=== PATIENT | female | born 1945 | race Caucasian/White ===

== ENCOUNTER → 2017-03-18 | Outpatient (CLI) | payer BC, OTHER ==
[~2017-03-18] MED LIST: ADVIN50050 INH; AMOX500T3 PO; ASPI-435 PO; ATOR80TA PO; AZEL0.055 INTNAS; BUPRTAB PO; CHOL1000 PO; CLOTLOT2 TOP; CTP/1 PO; CYAN100020 PO; CYCL10TA6 PO; DEXL60CA4 PO; DILT1TAB PO; DOCU-94 PO; ESCI1TAB10 PO; GLC/500 PO; HOMATROPINE PO; HYDROCODONE PO; HYG/25 PO; INSDGI SC; INSU100I2 SC; IPRA0.037 NAE; LACT10SO30 PO; LAMO1TAB21 PO; LORA-741 PO; LOSA1TAB38 PO; METO100T44 PO; METO1TAB54 PO; MOME50SP5; MONT1TAB3 PO; MULT-506 PO; ONDA4TAB46 PO; OXYC-57 PO; PAROXETINE PO; PRVHFAIN INH; PSEU60TA80 PO; RANI300T2 PO; RXC5 PO; SENN-61 PO; SNQ/25 PO; SPIR1TAB72 PO; VALA500T60 PO; [UNRECOGNIZED DRUG - CODE] SQ
--- NOTE | 2017-03-18 08:14 | DIAGNOSTIC IMAGING REPORT ---
ABDOMINAL ULTRASOUND, lower QUADRANT HISTORY: Postoperative pain R10.9 Abdominal [id number]. COMPARISON: None. FINDINGS: No abnormality identified deep to the patient's midline lower abdominal scar. IMPRESSION: No evidence for hernia or subcutaneous abnormality deep to the patient's postoperative scar Electronically signed by: Francisco Fonseca M.D. 03/18/2017 8:12 AM Dictated Date/Time: 03/18/2017 8:09 AM
== END | disposition home or self-care (01) ==
LOC: C.ULTR 07:42
PROVIDERS: ATTEND Physician Assistant Medical
DX: R10.9 Unspecified abdominal pain (principal)

== ENCOUNTER → 2017-04-01 | Outpatient (CLI) | payer BC, OTHER ==
--- NOTE | 2017-04-01 15:22 | DIAGNOSTIC IMAGING REPORT ---
ABDOMEN AND PELVIS CT WITH IV AND ORAL CONTRAST CT DOSE: 666.37 mGy.cm HISTORY: Hernia R10.9 Abdominal pain r/o incisional hernia--ultrasound normal E X TECHNIQUE: Multiaxial CT images of the abdomen and pelvis were performed following the use of intravenous and oral contrast. COMPARISON STUDY: 04/06/2014. Ultrasound same date. FINDINGS: Lung bases are clear. Moderate fatty infiltration of liver. Interval cholecystectomy. Pancreas is uniform. Extrarenal pelvis right kidney. No evidence for renal hydronephrosis. Several small sub-5 mm renal cortical cysts. Midline incision lower aspect anterior abdominal wall. Anterior abdominal wall is intact. No evidence for hernia. Bowel pattern is nonobstructive. Bladder is midline. IMPRESSION: 1. Fatty infiltration of liver. 2. No evidence for hernia. 3. The abdominal wall appears to be intact. Electronically signed by: Francisco Fonseca M.D. 04/01/2017 3:20 PM Dictated Date/Time: 04/01/2017 3:14 PM
== END | disposition home or self-care (01) ==
LOC: C.CTS 13:36
PROVIDERS: ATTEND Physician Assistant Medical
DX: R10.9 Unspecified abdominal pain (principal); K76.0 Fatty (change of) liver, not elsewhere classified

== ENCOUNTER → 2017-04-07 | Outpatient (CLI) | payer BC ==
[~2017-04-07] MED LIST changes: -HOMATROPINE PO; -HYDROCODONE PO; -INSDGI SC; -INSU100I2 SC; -LOSA1TAB38 PO; -PAROXETINE PO
[2017-04-07 15:06] LABS: ESTIMATED AVERAGE GLUCOSE 246 mg/dl; HA1C FLAG Normal (Normal)
== END | disposition home or self-care (01) ==
LOC: C.LAB1850 13:22
PROVIDERS: ATTEND Physician Assistant
DX: E11.49 Type 2 diabetes mellitus with other diabetic neurological complication (principal)

== ENCOUNTER → 2017-05-19 | Outpatient (CLI) | payer BC ==
[2017-05-22 15:56] LABS: ILGF1 Z SCORE FEMALE 1.8 SD (-2.0 - +2.0); INSULIN LIKE GROWTH FACTOR-I 233 ng/mL (34-245); ISLET CELL AB NEGATIVE (NEGATIVE)
== END ==
LOC: C.LAB 08:01
PROVIDERS: ATTEND Orthopaedic Surgery Orthopaedic Surgery of the Spine
DX: M48.06 Spinal stenosis, lumbar region (principal)

== ENCOUNTER 2017-06-05 11:15 | Inpatient (IN) | payer BC, OTHER ==
[2017-04-01 14:09] VITALS: BMI 31.0
--- NOTE | 2017-04-01 14:20 | PAT Medication Instructions ---
Service Date April 01, 2017. Current Home Medication List Albuterol (Ventolin Hfa), 2 PUFFS INH q4-6h PRN for Shortness of Breath Amoxicillin (Amoxil), 500 MG PO DAILY Aspirin (Aspirin 81), 81 MG PO QAM Atorvastatin Calcium (Lipitor), 80 MG PO HS Azelastine Hcl (Ophth) (Azelastine Hcl), 2 SPRAYS INTNAS BID PRN for congestiion Bupropion Hcl (Wellbutrin Xl), 1 TAB PO DAILY PRN for Anxiety Chlorthalidone (Hygroton), 25 MG PO QAM Cholecalciferol (Vitamin D3), 1 TAB PO QAM Clonidine Hcl (Catapres), 0.1 MG PO BID Clotrimazole W/ Betamethasone (Clotrimazole/Betamethason), 1 DOSE TOP Q2D Cyanocobalamin (Vitamin B12), 1 TAB PO QAM Cyclobenzaprine Hcl (Flexeril), 10 MG PO TID PRN for Pain Dexlansoprazole (Dexilant), 60 MG PO QAM Diltiazem HCl Coated Beads (Diltiazem HCl ER), 420 MG PO QAM Docusate Sodium (Colace), 100 MG PO HS PRN for PRN Doxepin (Sinequan), 25 MG PO HS PRN for PRN Escitalopram Oxalate (Lexapro), 20 MG PO QAM Fluticasone Prop/Salmeterol (Advair Diskus 500-50 Mcg/Dose), 1 PUFF INH BID Hctz/Spironolactone (Spironolactone/Hydrochlor 25-25 mg), 1 TAB PO QAM Insulin Human Regular (Humulin R), 50 UNITS SQ BREAKFAST AND DINNER Ipratropium [place] (Nasal) (Atrovent Nasal [place]), 2 SPRY SHANA TID PRN for PRN Lactulose (Encephalopathy) (Lactulose), 15 ML PO DAILY PRN for CONSTIPATION Lamotrigine (Lamotrigine), 50 MG PO BID Lorazepam (Ativan), 0.5 MG PO Q6H PRN for Anxiety/Agitation Losartan Potassium (Cozaar), 100 MG PO QAM Metformin Hcl (Glucophage), 500 MG PO BID Metoclopramide Hcl (Reglan), 5 MG PO BID Metoprolol Succ (Toprol Xl) (Toprol-Xl ), 100 MG PO QAM Metoprolol Succ (Toprol Xl) (Toprol-Xl ), 50 MG PO HS Mometasone Furoate (Nasonex), 1 SPRAY NA PRN Montelukast Sodium (Singulair), 10 MG PO QAM Multivitamin (Multivitamin), 1 TAB PO QAM Ondansetron Hcl (Zofran), 4 MG PO Q8H PRN for Nausea Oxycodone/Acetaminophen 5MG/325MG (Percocet 5MG/325MG), 1-2 TABLETS PO Q4H PRN for Pain Pseudoephedrine-Guaifenesin (Mucinex D), 1 TAB PO BID PRN for CONGESTION Ranitidine Hcl (Zantac), 300 MG PO HS Senna (Senokot), 1 TAB PO BID PRN for RN Valacyclovir (Valtrex), 500 MG PO DAILY Medication Instructions For Your Scheduled Surgery - Hold the following medications 48 hours prior to surgery: Metformin Hcl (Glucophage), 500 MG PO BID - Hold the following medications 24 hours prior to surgery: Clotrimazole W/ Betamethasone (Clotrimazole/Betamethason), 1 DOSE TOP Q2D - Hold the following medications the morning of surgery: Chlorthalidone (Hygroton), 25 MG PO QAM Cholecalciferol (Vitamin D3), 1 TAB PO QAM Cyanocobalamin (Vitamin B12), 1 TAB PO QAM Insulin Human Regular (Humulin R), 50 UNITS SQ BREAKFAST AND DINNER Hctz/Spironolactone (Spironolactone/Hydrochlor 25-25 mg), 1 TAB PO QAM Losartan Potassium (Cozaar), 100 MG PO QAM Cyclobenzaprine Hcl (Flexeril), 10 MG PO TID PRN for Pain Multivitamin (Multivitamin), 1 TAB PO QAM Pseudoephedrine-Guaifenesin (Mucinex D), 1 TAB PO BID PRN for CONGESTION Senna (Senokot), 1 TAB PO BID PRN Metoclopramide Hcl (Reglan), 5 MG PO BID Lactulose (Lactulose), 15 ML PO DAILY PRN for CONSTIPATION - Take the following medications the morning of surgery with a sip of water OTHERWISE NOTHING TO EAT OR DRINK AFTER MIDNIGHT: Albuterol (Ventolin Hfa), 2 PUFFS INH q4-6h PRN for Shortness of Breath (use if needed; BRING TO HOSPITAL) Aspirin (Aspirin 81), 81 MG PO QAM Azelastine Hcl (Ophth) (Azelastine Hcl), 2 SPRAYS INTNAS BID PRN for congestiion Bupropion Hcl (Wellbutrin Xl), 1 TAB PO DAILY PRN for Anxiety Clonidine Hcl (Catapres), 0.1 MG PO BID Dexlansoprazole (Dexilant), 60 MG PO QAM Diltiazem HCl Coated Beads (Diltiazem HCl ER), 420 MG PO QAM Escitalopram Oxalate (Lexapro), 20 MG PO QAM Fluticasone Prop/Salmeterol (Advair Diskus 500-50 Mcg/Dose), 1 PUFF INH BID Lamotrigine (Lamotrigine), 50 MG PO BID Lorazepam (Ativan), 0.5 MG PO Q6H PRN for Anxiety/Agitation Mometasone Furoate (Nasonex), 1 SPRAY NA PRN Metoprolol Succ (Toprol Xl) (Toprol-Xl ), 100 MG PO QAM Montelukast Sodium (Singulair), 10 MG PO QAM Valacyclovir (Valtrex), 500 MG PO DAILY Ondansetron Hcl (Zofran), 4 MG PO Q8H PRN for Nausea Oxycodone/Acetaminophen 5MG/325MG (Percocet 5MG/325MG), 1-2 TABLETS PO Q4H PRN for Pain (may take if needed up to 4 hours prior to surgery) Ipratropium [place] (Nasal) (Atrovent Nasal [place]), 2 SPRY SHANA TID PRN for PRN - Take the following medications as scheduled the night before surgery: Albuterol (Ventolin Hfa), 2 PUFFS INH q4-6h PRN for Shortness of Breath Metoprolol Succ (Toprol Xl) (Toprol-Xl ), 50 MG PO HS Ranitidine Hcl (Zantac), 300 MG PO HS Atorvastatin Calcium (Lipitor), 80 MG PO HS Azelastine Hcl (Ophth) (Azelastine Hcl), 2 SPRAYS INTNAS BID PRN for congestiion Clonidine Hcl (Catapres), 0.1 MG PO BID Docusate Sodium (Colace), 100 MG PO HS PRN for PRN Doxepin (Sinequan), 25 MG PO HS PRN for PRN Insulin Human Regular (Humulin R), 50 UNITS SQ BREAKFAST AND DINNER Fluticasone Prop/Salmeterol (Advair Diskus 500-50 Mcg/Dose), 1 PUFF INH BID Lamotrigine (Lamotrigine), 50 MG PO BID Lorazepam (Ativan), 0.5 MG PO Q6H PRN for Anxiety/Agitation Mometasone Furoate (Nasonex), 1 SPRAY NA PRN Cyclobenzaprine Hcl (Flexeril), 10 MG PO TID PRN for Pain Pseudoephedrine-Guaifenesin (Mucinex D), 1 TAB PO BID PRN for CONGESTION Senna (Senokot), 1 TAB PO BID PRN Metoclopramide Hcl (Reglan), 5 MG PO BID Ondansetron Hcl (Zofran), 4 MG PO Q8H PRN for Nausea Oxycodone/Acetaminophen 5MG/325MG (Percocet 5MG/325MG), 1-2 TABLETS PO Q4H PRN for Pain Ipratropium [place] (Nasal) (Atrovent Nasal [place]), 2 SPRY SHANA TID PRN for PRN If you have any questions please call us at [phone] or [phone] or [phone]
[2017-04-02 12:07] LABS: BASO % 0.5 %; BASO ABS # 0.04 K/uL (0-0.2); COMPLETE YES; EOS % 1.1 %; HEMATOCRIT 42.5 % (37-47); IG% 0.5 %; LYMPH % 29.7 %; LYMPH ABS # 2.35 K/uL (1.2-3.4); MEAN CELL VOLUME 89.7 fL (80-100); MEAN CORPUSCULAR HEMOGLOBIN 30.6 pg (25-34); MEAN CORPUSCULAR HGB CONC 34.1 g/dl (32-36); MEAN PLATELET VOLUME 10.8 fL (7.4-10.4); MONO % 8.8 %; NEUT % 59.4 %; PLATELET COUNT 317 K/uL (130-400); RED BLOOD COUNT 4.74 M/uL (4.2-5.4); URINE APPEARANCE CLEAR (CLEAR); URINE BILIRUBIN NEG (NEG); URINE COLOR YELLOW; URINE NITRITE NEG (NEG); URINE PH 5.5 (4.5-7.5); URINE SPECIFIC GRAVITY 1.028 (1.000-1.030); UROBILINOGEN NEG (NEG); WHITE BLOOD COUNT 7.92 K/uL (4.8-10.8)
[2017-04-02 12:12] LABS: MANUAL MICROSCOPIC REQUIRED? NO; REVIEW REQ? NO
[2017-04-02 13:31] LABS: BUN/CREATININE RATIO 13.4 (10-20); CALCIUM 9.6 mg/dl (8.5-10.1)
[2017-04-02 13:55] LABS: BETA-HYDROXYBUTYRATE 1.46 mg/dL (0.2-2.81)
[2017-05-19 09:43] LABS: BASO % 0.5 %; BASO ABS # 0.04 K/uL (0-0.2); COMPLETE YES; EOS % 2.4 %; HEMATOCRIT 42.7 % (37-47); IG% 0.8 %; LYMPH % 29.7 %; LYMPH ABS # 2.53 K/uL (1.2-3.4); MEAN CELL VOLUME 90.9 fL (80-100); MEAN PLATELET VOLUME 10.5 fL (7.4-10.4); MONO % 7.6 %; PLATELET COUNT 312 K/uL (130-400); WHITE BLOOD COUNT 8.51 K/uL (4.8-10.8)
[2017-05-19 09:49] LABS: URINE APPEARANCE CLEAR (CLEAR); URINE BILIRUBIN NEG (NEG); URINE COLOR YELLOW; URINE NITRITE NEG (NEG); URINE SPECIFIC GRAVITY 1.023 (1.000-1.030); UROBILINOGEN NEG (NEG)
[2017-05-19 10:07] LABS: MANUAL MICROSCOPIC REQUIRED? NO; REVIEW REQ? NO
[2017-05-19 10:18] LABS: BUN/CREATININE RATIO 19.2 (10-20); CALCIUM 9.3 mg/dl (8.5-10.1); CREATININE 0.98 mg/dl (0.60-1.20)
[2017-05-22 15:10] VITALS: BMI 31.0
[2017-06-05] VITALS (7 sets, daily range): BP systolic 112–138; BP diastolic 69–85; PULSE 77–92; TEMP 36.5–37.7; O2SAT 93–97; BMI 31.0
[~2017-06-05] VITALS: Ht 160 cm; Wt 81.8 kg
[~2017-06-05 11:15] MED LIST changes: +CEFAZOLIN 2000 MG/60 ML D5W IV SCH; +LACTATED RINGER'S 1000ML 1,000 ML IV SCH; -METO100T44 PO; +METO1TAB69 PO; -RXC5 PO
[2017-06-05] MEDS ORDERED: ATROPINE SULFATE 0.1 MG/ML 5ML SYR IV PRN (13:30)
[2017-06-05] MEDS ORDERED: FENTANYL CITRATE INJ 50 MCG/1 ML 2 ML VIAL IV PRN (13:30)
[2017-06-05] MEDS ORDERED: ONDANSETRON INJ 2 MG/ML 2 ML VIAL IV PRN ×2 (13:30→16:00)
[2017-06-05] MEDS ORDERED: EpHEDrine SULFATE INJ 50 MG/ML AMP IV PRN (13:30)
[2017-06-05] MEDS ORDERED: MoRPHine SULFATE 10 MG/ML CARP/VIAL IV PRN (13:30)
--- NOTE | 2017-06-05 13:42 | History & Physical Bridge Note ---
H&P Re-Evaluation Bridge Note: I have examined the patient, reviewed the History & Physical and in the interval since the performance of the History & Physical I have noted the following changes of clinical significance: No changes noted
--- NOTE | 2017-06-05 13:43 | History and Physical ---
History & Physical Date Jun 05, 2017. 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 (8) Diab Ramonita Wo Compl, Type Ii Or Unspec Type, Not Uncntrld (9) Diabetes mellitus (10) Hyperlipidemia (11) neuropathy (12) Pancreat Cyst/Pseudocyst Surgical Problems: (1) back surgery x3 (2) neck surgery x3 (3) Tubal Ligation Status Additional History Hepatic Disease: No Endocrine Disorder: No Kidney Disease: No Hypertension: No Heart Disease: No Bleeding Tendencies: No Infectious Diseases: No Allergies Coded Allergies: Levofloxacin (Verified Allergy, Unknown, ITCHY HIVES, 06/05/17) Ofloxacin (Verified Allergy, Unknown, RASH, 06/05/17) Pioglitazone (Verified Allergy, Unknown, ITCHING, 06/05/17) Sulfa Drugs (Verified Allergy, Unknown, ITCHY (PER PT, HAS TOLERATED CELEBREX), 06/05/17) Home Medications Scheduled Amoxicillin (Amoxil), 500 MG PO DAILY Aspirin (Aspirin 81), 81 MG PO QAM Atorvastatin Calcium (Lipitor), 80 MG PO HS Chlorthalidone (Hygroton), 25 MG PO QAM Cholecalciferol (Vitamin D3), 1 TAB PO QAM Clonidine Hcl (Catapres), 0.1 MG PO BID Cyanocobalamin (Vitamin B12), 1 TAB PO QAM Dexlansoprazole (Dexilant), 60 MG PO QAM Diltiazem HCl Coated Beads (Diltiazem HCl ER), 420 MG PO QAM Escitalopram Oxalate (Lexapro), 20 MG PO QAM Fluticasone Prop/Salmeterol (Advair Diskus 500-50 Mcg/Dose), 1 PUFF INH BID Hctz/Spironolactone (Spironolactone/Hydrochlor 25-25 mg), 1 TAB PO QAM Insulin Human Regular (Humulin R), 75 UNITS SQ QAM Lamotrigine (Lamotrigine), 50 MG PO BID Metformin Hcl (Glucophage), 1 TAB PO QID Metoclopramide Hcl (Reglan), 5 MG PO BID Metoprolol Succ (Toprol Xl) (Toprol-Xl ), 100 MG PO QAM Metoprolol Succ (Toprol Xl) (Toprol-Xl ), 50 MG PO HS Mometasone Furoate (Nasonex), 1 SPRAY NA PRN Montelukast Sodium (Singulair), 10 MG PO QAM Multivitamin (Multivitamin), 1 TAB PO QAM Ranitidine Hcl (Zantac), 300 MG PO HS Valacyclovir (Valtrex), 500 MG PO QAM Scheduled PRN Albuterol (Ventolin Hfa), 2 PUFFS INH q4-6h PRN for Shortness of Breath Azelastine Hcl (Ophth) (Azelastine Hcl), 2 SPRAYS INTNAS BID PRN for congestiion Bupropion Hcl (Wellbutrin Xl), 1 TAB PO DAILY PRN for Anxiety Clotrimazole W/ Betamethasone (Clotrimazole/Betamethason), 1 DOSE TOP Q2D PRN for SKIN IRRITATION Cyclobenzaprine Hcl (Flexeril), 10 MG PO TID PRN for Pain Docusate Sodium (Colace), 100 MG PO HS PRN for PRN Doxepin (Sinequan), 25 MG PO HS PRN for PRN Ipratropium [place] (Nasal) (Atrovent Nasal [place]), 2 SPRY SHANA TID PRN for PRN Lactulose (Encephalopathy) (Lactulose), 15 ML PO DAILY PRN for CONSTIPATION Lorazepam (Ativan), 0.5 MG PO Q6H PRN for Anxiety/Agitation Ondansetron Hcl (Zofran), 4 MG PO Q8H PRN for Nausea Oxycodone/Acetaminophen 5MG/325MG (Percocet 5MG/325MG), 1-2 TABLETS PO Q4H PRN for Pain Pseudoephedrine-Guaifenesin (Mucinex D), 1 TAB PO BID PRN for CONGESTION Senna (Senokot), 1 TAB PO BID PRN for Constipation Physical Examination Skin: warm/dry, no rash Eyes: normal inspection, EOMI, sclerae normal ENT: normal ENT inspection, pharynx normal Head: normocephalic, atraumatic Neck: supple, no adenopathy, trachea midline Respiratory/Chest: lungs clear, normal breath sounds, no respiratory distress Cardiovascular: regular rate, rhythm, no edema, no murmur Abdomen / GI: normal bowel sounds, non tender Back: normal inspection Extremities: normal inspection, normal range of motion Neurologic/Psych: no motor/sensory deficits, alert, normal reflexes, oriented x 3 Diagnosis lumbar stenosis Plan of Treatment decompression fusion L4-5
[2017-06-05] MEDS ORDERED: BACITRACIN 50000 UNIT VIAL ONE (13:57)
[2017-06-05] MEDS ORDERED: BUPIVACAINE/EPINEPHRINE 0.25% 1:200,000 30 ML VIAL ONE (13:58)
[2017-06-05] MEDS ORDERED: FENTANYL CITRATE INJ 50 MCG/1 ML 2 ML VIAL ONE (14:24)
[2017-06-05] MEDS ORDERED: MIDAZOLAM HCL 1 MG/ML 2ML VIAL ONE (14:24)
[2017-06-05] MEDS ORDERED: HYDROmorphone INJ 2 MG/ML SYR/VIAL ONE (14:47)
[2017-06-05] MEDS ORDERED: DEXAMETHASONE SOD INJ 4 MG/ML VIAL ONE (15:09)
[2017-06-05] MEDS ORDERED: NEOSTIGMINE METHYLSULFATE 1 MG/ML 10ML VIAL ONE (15:09)
[2017-06-05] MEDS ORDERED: GLYCOPYRROLATE INJ 0.2 MG/ML VIAL ONE (15:09)
[2017-06-05] MEDS ORDERED: LIDOCAINE HCL 2% 2 ML VIAL (20MG/ML) ONE (15:09)
[2017-06-05] MEDS ORDERED: ONDANSETRON INJ 2 MG/ML 2 ML VIAL ONE (15:09)
[2017-06-05] MEDS ORDERED: PROPOFOL IV EMULSION 10 MG/ML 20 ML VIAL IV ONE (15:09)
[2017-06-05] MEDS ORDERED: PHENYLEPHRINE 100MCG/ML 5ML SYR ONE (15:09)
[2017-06-05] MEDS ORDERED: ROCURONIUM BROMIDE 10 MG/ML 5 ML VIAL ONE (15:09)
[2017-06-05] MEDS ORDERED: FAMOTIDINE 20 MG TAB PO PRN (16:00)
[2017-06-05] MEDS ORDERED: MAGNESIUM HYDROXIDE SUSP 30 ML UDC PO PRN (16:00)
[2017-06-05] MEDS ORDERED: ACETAMINOPHEN 500 MG TAB PO PRN (16:00)
[2017-06-05] MEDS ORDERED: LORAZEPAM 0.5 MG TAB PO PRN ×2 (16:00→19:15)
[2017-06-05] MEDS ORDERED: hydrOXYzine HCL 25 MG TAB PO PRN (16:00)
[2017-06-05] MEDS ORDERED: BISACODYL 10 MG SUPP PR PRN (16:00)
[2017-06-05] MEDS ORDERED: ALUMINUM/MAGNESIUM SUSP 30 ML UDC PO PRN (16:00)
[2017-06-05] MEDS ORDERED: DO NOT ADMINISTER PNEUMOCOCCAL VACCINE PRN ×2 (16:00)
[2017-06-05] MEDS ORDERED: ACETAMINOPHEN IV 100 ML IV PRN (16:00)
[2017-06-05] MEDS ORDERED: HYDROmorphone INJ 0.5 MG/0.5 ML SYR IV PRN (16:00)
[2017-06-05] MEDS ORDERED: PROMETHAZINE HCL INJ 12.5 MG in SODIUM CHLORIDE 0.9% 50ML 50 ML IV PRN (16:00)
[2017-06-05] MEDS ORDERED: DO NOT ADMINISTER FLU VACCINE PRN ×3 (16:00)
[2017-06-05] MEDS ORDERED: SOD PHOSPHATE/SOD BIPHOSPHATE ENEMA 132 ML BTL PR PRN (16:00)
[2017-06-05] MEDS ORDERED: LORAZEPAM INJ 0.5 MG in SYRINGE 0 ML IV PRN (16:00)
[2017-06-05] MEDS ORDERED: METOCLOPRAMIDE HCL INJ 5 MG/ML 2 ML VIAL IV PRN (16:00)
[2017-06-05] MEDS ORDERED: FLOSEAL HEMOSTATIC MATRIX 10ML TOP ONE (16:05)
[2017-06-05] MEDS ORDERED: LARYING-O-JET KIT (LTA) ONE ×2 (16:05)
[2017-06-05] MEDS ORDERED: EpHEDrine SULFATE 50MG/5ML SYR ONE (16:06)
--- NOTE | 2017-06-05 16:07 | [facility] Operative Report ---
Operative Report Operative Date Jun 05, 2017. Pre-Operative Diagnosis Lumbar Stenosis Post-Operative Diagnosis Lumbar Stenosis Procedure(s) Performed #1 lumbar decompression bilateral medial facetectomies foraminotomies L3 4 L4 5. #2 posterior spinal fusion L4 5. #3 placed posterior instrumentation using orthosis rods and screws L4 5. #4 interbody fusion L4 5. #5 patient P Cage 14 x 22 mm at L4 5. #6 placement locally harvested morcellized autograft in the posterior lateral gutters. #7 placement if he is calm sponge by mask graft in the posterolateral gutters to any bone graft in the interbody space. Surgeon Dr. Hardy Channeler Runner Surgeon(s) Francia Emmanuel PA-C Estimated Blood Loss 200ml Findings Severe spinal stenosis. Specimens None Description of Procedure Patient was met with preoperatively case discussed all questions were addressed. The patient was taken back to the operative suite and after undergoing successful general admission and procedures placed in the prone position on the [place] table on top of the Juan frame. All bony prominences were well-padded in the eyes inspected to ensure there is no external pressure placed upon them. This point summer spine was prepped and draped in the normal sterile fashion. Sharp dissection with the assistance of Bovie cautery was performed onto an exposing the lamina and transverse processes of L4 5 bilaterally. From a caudal to cephalad fashion complete laminectomy of L4 partial laminectomy of L3 was performed addressing severe lateral recess and foraminal stenosis. This did require bilateral facetectomies at L4 5. After this complete pedicle screws are placed in for 5 bilaterally with assistance of fluoroscopy and the [place] size alex provisionally placed. Through a transforaminal approach on the right complete discectomy of L4 was performed and plate create a subcortical bleeding bone and a 14 x 22 mm peek Cage filled the Miladis bone grafting To position. Brought in and compressed and locked and final position bilaterally. Transverse processes of L4 5 burred to subcortical bleeding bone in the InFUSE Sponge about Mask Graft Locally Harvested Morcellized Autograft Placed in the Posterior Lateral Gutters. 15 Round RIO Drain Inserted. Incision Was Then Closed with 1 Vicryl in the Fascia 2 -0 Vicryl Subcutaneously for Monocryl for Final Skin Closure. Patient Was Awakened and Taken to PACU. I attest to the content of the Intraoperative Record and any orders documented therein. Any exceptions are noted below.
[2017-06-05] MEDS ORDERED: SODIUM CHLORIDE 0.9% 1000ML 1,000 ML IV SCH (16:40)
[2017-06-05] MEDS ORDERED: HYDROmorphone HCL 0.5MG/ML 50 ML CASSETTE ONE (16:43)
[2017-06-05] MEDS ORDERED: HYDROmorphone HCL 0.5MG/ML 50 ML CASSETTE IV PRN (16:45)
[2017-06-05] MEDS ORDERED: NALOXONE HCL 0.4 MG/1 ML VIAL/CARP IV PRN (16:45)
--- NOTE | 2017-06-05 16:48 | DIAGNOSTIC IMAGING REPORT ---
LUMBAR SPINE 2 OR 3 VIEW CLINICAL HISTORY: L4-L5 DECOMPRESSION/FUSION/INTERBODY COMPARISON STUDY: Lumbar spine MRI August 19, 2016. Fluoroscopy time: 12 seconds. FINDINGS: 2 fluoroscopic images demonstrate an L4-L5 discectomy with interbody spacer placement. There is a posterior decompression bilateral pedicle screws at the L4 and L5 levels. Hardware is intact. IMPRESSION: Expected findings following L4-L5 discectomy and bilateral pedicle screw fusion. Electronically signed by: Germán Broderick M.D. 06/05/2017 4:46 PM Dictated Date/Time: 06/05/2017 4:46 PM
--- NOTE | 2017-06-05 17:13 | Anesthesiology Progress Note ---
Anesthesia Post Op Note Date & Time Jun 05, 2017 at 17:13 Vital Signs Pain Intensity: 3 Vital Signs Past 12 Hours Date Time Temp Pulse Resp B/P (MAP) Pulse Ox O2 Delivery O2 Flow Rate FiO2 06/05/17 17:00 84 16 116/68 95 Oxymask 4 06/05/17 16:50 81 13 124/78 92 Oxymask 4 06/05/17 16:40 86 14 121/70 95 Oxymask 10 06/05/17 16:30 90 16 129/74 96 Oxymask 15 06/05/17 16:20 36.6 88 12 135/73 95 Oxymask 15 06/05/17 12:36 36.6 92 20 138/81 Room Air 94 Notes Mental Status: alert / awake / arousable, participated in evaluation Pt Amnestic to Procedure: Yes Nausea / Vomiting: adequately controlled Pain: adequately controlled Airway Patency, RR, SpO2: stable & adequate BP & HR: stable & adequate Hydration State: stable & adequate Anesthetic Complications: no major complications apparent
[2017-06-05] MEDS: SODIUM CHLORIDE 0.9% 1000ML 1,000 ML IV SCH ×2 (18:40→22:53)
[2017-06-05] MEDS ORDERED: GLUCOSE 40% GEL 15 GM TUBE PO PRN (19:15)
[2017-06-05] MEDS ORDERED: SENNA 8.6 MG TAB PO PRN (19:15)
[2017-06-05] MEDS ORDERED: GLUCOSE 10 TABS/TUBE PO PRN (19:15)
[2017-06-05] MEDS ORDERED: GLUCAGON FOR INJ 1 MG VIAL SQ PRN (19:15)
[2017-06-05] MEDS ORDERED: ALBUTEROL HFA 8 GM INHALER INH PRN (19:15)
[2017-06-05] MEDS ORDERED: DEXTROSE 50% 50 ML SYR IV PRN (19:15)
[2017-06-05] MEDS ORDERED: HydrALAZINE HCL 20 MG/ML VIAL IV. PRN (19:45)
--- NOTE | 2017-06-05 19:50 | Medical Consult ---
Consultation Date of Consultation: Jun 05, 2017. Attending Physician: Cornelius Hardy D.O. Reason for Consultation: Medical management History of Present Illness This is a 72 y/o female with a history of HTN, HLD, DM II, gastroparesis, asthma , chronic rhinitis, anxiety and depression, migraines, h/o breast cancer, and GERD who presents s/p L4-L5 decompression and fusion with Dr. Hardy on 06/05 for medical management. The patient is drowsy postoperatively. She states that her back is starting to become painful and she is mildly nauseous but otherwise denies any other complaints. She has not yet eaten, urinated, passed gas or had a bowel movement postoperatively. The patient denies fevers, chills, sweats , chest pain, palpitations, claudication, cough, wheezing, shortness of breath, vomiting, abdominal pain, dysuria, hematuria, urinary retention, paralysis, weakness, numbness and tingling. Past Medical/Surgical History HTN HLD DM II Gastroparesis Asthma Chronic rhinitis Anxiety and depression, h/o PTSD Migraines GERD H/o breast cancer--no current treatment Family History Diabetes mellitus FH: cancer FH: heart disease Hypertension Stroke Social History Smoking Status: Never Smoker Smokeless Tobacco Use: No Alcohol Use: occasionally (beer) Drug Use: none Marital Status: Housing Status: lives with significant other Occupation Status: retired Allergies Coded Allergies: Levofloxacin (Verified Allergy, Unknown, ITCHY HIVES, 06/05/17) Ofloxacin (Verified Allergy, Unknown, RASH, 06/05/17) Pioglitazone (Verified Allergy, Unknown, ITCHING, 06/05/17) Sulfa Drugs (Verified Allergy, Unknown, ITCHY (PER PT, HAS TOLERATED CELEBREX), 06/05/17) Current Inpatient Medications Current Inpatient Medications Medications (Trade) Dose Ordered Sig/Bon Route Start Time Stop Time Status Last Admin Dose Admin Dexamethasone Sodium Phosphate 6 mg/Syringe 1.5 ml @ 1 mls/min Q8H IV 06/05/17 22:00 06/06/17 14:02 Promethazine HCl 12.5 mg/Sodium Chloride 50.5 ml @ 202 mls/hr Q6H PRN IV 06/05/17 16:00 07/05/17 15:59 Ondansetron HCl (Zofran Inj) 4 mg Q6H PRN IV 06/05/17 16:00 07/05/17 15:59 Metoclopramide HCl (Reglan Inj) 10 mg Q6H PRN IV 06/05/17 16:00 07/05/17 15:59 Lorazepam (Ativan Tab) 0.5 mg Q8H PRN PO 06/05/17 16:00 07/05/17 15:59 Lorazepam 0.5 mg/ Syringe 0.25 ml @ 1 mls/min Q8H PRN IV 06/05/17 16:00 07/05/17 15:59 Pneumococcal Polysaccharide Vaccine 1 ea PRN PRN N/A 06/05/17 16:00 07/05/17 15:59 Influenza Virus Vacc Triv Types A&B 1 ea PRN PRN N/A 06/05/17 16:00 07/05/17 15:59 Polyethylene (Miralax Powder Packet) 17 gm Q6 PO 06/07/17 06:00 07/07/17 05:59 Bisacodyl (Dulcolax Supp) 10 mg DAILY PRN GA 06/05/17 16:00 07/05/17 15:59 Magnesium Hydroxide (Milk Of Magnesia Susp) 30 ml DAILY PRN PO 06/05/17 16:00 07/05/17 15:59 Oxycodone HCl (Roxicodone Immediate Rel Tab) 5-10mg prn moderate to sev... Q4H PRN PO 06/06/17 06:00 06/20/17 05:59 Cefazolin Sodium 2000 mg/Dextrose 60 ml @ 100 mls/hr Q8H IV 06/05/17 20:00 06/06/17 04:35 Sodium Chloride 1,000 ml @ 150 mls/hr Q6H40M IV 06/05/17 16:00 07/05/17 15:59 06/05/17 18:40 150 MLS/HR Acetaminophen (Tylenol Tab) 1,000 mg Q8H PRN PO 06/05/17 16:00 07/05/17 15:59 Acetaminophen 100 ml @ 400 mls/hr Q8H PRN IV 06/05/17 16:00 07/05/17 15:59 Naloxone HCl (Narcan Inj) 0.1 mg Q5M PRN IV 06/06/17 06:00 07/06/17 05:59 Senna/Docusate Sodium (Senokot S Tab) 2 tab HS PO 06/05/17 21:00 07/05/17 20:59 Sodium Biphosphate/ Sodium Phosphate (Fleet Enema) 132 ml ONE PRN GA 06/05/17 16:00 07/05/17 15:59 Hydroxyzine HCl (Vistaril Tab) 25 mg Q8H PRN PO 06/05/17 16:00 07/05/17 15:59 Al Hydroxide/Mg Hydroxide (Maalox Susp) 30 ml Q6H PRN PO 06/05/17 16:00 07/05/17 15:59 Famotidine (Pepcid Tab) 20 mg Q12 PRN PO 06/05/17 16:00 07/05/17 15:59 Diphenhydramine HCl (Benadryl Cap) 25 mg Q6H PRN PO 06/05/17 16:00 07/05/17 15:59 Miscellaneous Information (Discontinue COCOA MILLING MACHINE OPERATOR) 1 ea TODAY@0600 ONCE N/A 06/06/17 06:00 06/06/17 06:01 Naloxone HCl (Narcan Inj) 0.1 mg Q5M PRN IV 06/05/17 16:45 06/06/17 06:00 Hydromorphone HCl (Dilaudid Certified Medical Technician Assistant) 25 mg PRN PRN IV 06/05/17 16:45 06/06/17 06:00 Sodium Chloride 1,000 ml @ 15 mls/hr Q24H IV 06/05/17 16:40 06/06/17 06:00 Hydromorphone HCl (Dilaudid Inj) 1 mg Q3H PRN IV 06/06/17 06:00 06/20/17 05:59 Hydromorphone HCl (Dilaudid Inj) 0.5 mg Q3H PRN IV 06/06/17 06:00 06/20/17 05:59 Review of Systems See HPI for pertinent positives and negatives. All other systems reviewed and negative. Physical Exam Date Time Temp Pulse Resp B/P (MAP) Pulse Ox O2 Delivery O2 Flow Rate FiO2 06/05/17 18:45 36.8 92 16 124/85 (98) 93 Nasal Cannula 4.0 06/05/17 18:10 36.7 77 16 112/71 (85) 93 Nasal Cannula 3.0 06/05/17 17:40 93 Mask 4.0 06/05/17 17:40 36.5 86 18 117/73 (88) 93 Oxymask 4.0 06/05/17 17:40 Oxymask 06/05/17 17:30 82 13 103/68 95 Oxymask 4 06/05/17 17:15 37.2 80 15 111/62 95 Oxymask 4 06/05/17 17:00 84 16 116/68 95 Oxymask 4 06/05/17 16:50 81 13 124/78 92 Oxymask 4 06/05/17 16:40 86 14 121/70 95 Oxymask 10 06/05/17 16:30 90 16 129/74 96 Oxymask 15 06/05/17 16:20 36.6 88 12 135/73 95 Oxymask 15 06/05/17 12:36 36.6 92 20 138/81 Room Air 94 General appearance: +Obese. Lethargic. Well-developed, well-nourished, no apparent distress Head: Normocephalic, atraumatic Eyes: Normal inspection, PERRL, EOMI ENT: +Dry oral mucosa. Normal ENT inspection, hearing grossly normal, pharynx normal Neck: Supple, no JVD, trachea midline Respiratory/Chest: Lungs clear to auscultation, normal breath sounds, no respiratory distress Cardiovascular: +Systolic murmur. Regular rate & rhythm, no gallop Abdomen/GI: +Suprapubic area TTP. Normal bowel sounds, soft Extremities/Musculoskeletal: Normal inspection, no calf tenderness, no pedal edema Neurological/Psych: +Drowsy but easily roused. Answers questions appropriately. Normal mood/affect, oriented x 3 Skin: Normal color, warm/dry, no rash Laboratory Results Last 24 Hours Test 06/05/17 11:57 06/05/17 16:24 06/05/17 18:36 Bedside Glucose 260 mg/dl 235 mg/dl 286 mg/dl Assessment & Plan 72 y/o female with a history of HTN, HLD, DM II, gastroparesis, neuropathy, asthma, chronic rhinitis, anxiety and depression, migraines, h/o breast cancer, and GERD who presents s/p L4-L5 decompression and fusion with Dr. Hardy on 06/05 for medical management. -Pain management, DVT prophylaxis, and PT/OT as per primary team -POD #0 HTN--stable -Hold chlorthalidone and spironolactone/HCTZ for now until renal function checked/stable -Continue clonidine 0.1 mg PO BID, diltiazem 420 mg PO qd, and metoprolol succinate 200 mg PO qd HLD -Continue atorvastatin 80 mg PO qhs Diabetes mellitus type 2--last HgbA1c checked on 04/07/17 was 10.2 -Hold metformin and Humulin -Insulin sliding scale -Check BSGs q ac and qhs Gastroparesis -Pt takes PO Reglan at home on an as needed basis -IV Reglan prn on board for N/V per ortho, will hold home dose Neuropathy -Continue doxepin 75 mg PO qhs Asthma--stable, no acute exacerbation -Continue Advair 500/50 BID and Ventolin inhaler prn Chronic rhinitis -Continue Singular 10 mg PO qd Anxiety and depression -Continue Wellbutrin 150 mg PO qd, Lexapro 20 mg PO qd, and Ativan prn Migraines -Continue Lamictal 50 mg PO BID GERD -Continue Zantac 300 mg PO qhs. Dexilant substituted for Protonix 40 mg PO qd Code Status -Level I, FULL RESUSCITATION STATUS Thank you for this consultation. We will continue to follow. Attending Addendum: I have physically seen and examined this patient, have directed the physician assistants medical extremities, and agree with the H&P as noted above with the following exceptions: NONE The patient is awake, well-developed and adequately nourished, alert and oriented 3, normocephalic and atraumatic, lying in bed and in no acute distress. HEENT--PERRL, EOMI, mucous membranes and oropharynx dry. Neck--supple, no JVD or bruits, thyroid normal, trachea midline, no adenopathy. Heart--normal S1 and S2, no extra beats, systolic murmur, no rubs or gallops. Lungs--clear bilaterally with good air movement, no respiratory distress, no accessory muscle use. Abdomen--normal bowel sounds and soft, nontender and nondistended, no hernias or masses, no organomegaly. Extremities--no cyanosis, clubbing or edema. There are good distal pulses b/l. Dermatologic--normal skin turgor, normal color, warm and dry, no abnormal lymph nodes, no rash. Neurologic--cranial nerves II through XII grossly intact, Rheumatologic-- Psychiatric--normal affect. Assessment and Plan: 1. Status post L4 to L5 decompression and fusion--patient is seen postoperatively, and is medically stable. We will hold all diuretics including chlorthalidone and spironolactone/HCTZ due to GAYATHRI, follow serial laboratories BMP and magnesium levels. We'll continue clonidine 0.1 mg by mouth twice a day, diltiazem 0.5 mg by mouth daily, and metoprolol succinate 200 mg by mouth daily, all with hold parameters. We'll continue atorvastatin 80 mg by mouth at bedtime. We will hold metformin and standing orders of Humulin, and instead place patient on Accu-Cheks before meals and at bedtime with NovoLog coverage per scale. Continue doxepin 75 mg by mouth at bedtime, but monitor for orthostasis in the postoperative state. We'll continue Advair discus 500/50, 1 inhalation twice a day, Ventolin HFA 2 puffs 4 times a day when necessary, and Singulair 10 mg daily. Continue Wellbutrin, Lexapro, Lamictal and Ativan when necessary. Continue Zantac at bedtime, and formulary interchange of Dexilant to Protonix.
[2017-06-05] MEDS: CEFAZOLIN IV 2,000 MG in DEXTROSE 5% 50ML 50 ML IV SCH (20:34)
[2017-06-05] MEDS: DOCUSATE SODIUM/SENNA 50/8.6MG TAB PO SCH (20:35)
[2017-06-05] MEDS: FLUTICASONE/SALMETEROL (ADVAIR) 500/50 INH 14 PUFF INH SCH (21:29)
[2017-06-05] MEDS: DOXEPIN HCL 75 MG CAP PO SCH (21:30)
[2017-06-05] MEDS: ATORVASTATIN 40 MG TAB PO SCH (21:30)
[2017-06-05] MEDS: RANITIDINE HCL 150 MG TAB PO SCH (21:30)
[2017-06-05] MEDS: DEXAMETHASONE INJ 6 MG in SYRINGE 0 ML IV SCH (21:31)
[2017-06-05] MEDS: CLONIDINE HCL 0.1 MG TAB PO SCH (21:31)
[2017-06-05] MEDS: INSULIN ASPART 100 UNITS/ML 3 ML PEN SC SCH (21:38)
[2017-06-05] MEDS ORDERED: DOCUSATE SODIUM 100 MG CAP PO PRN (21:45)
[2017-06-05] MEDS ORDERED: INSULIN ASPART 100 UNITS/ML 3 ML PEN SC ONE (23:15)
[2017-06-05] MEDS ORDERED: LANTUS PER UNIT CHARGE SC ONE (23:15)
[2017-06-06] VITALS (8 sets, daily range): BP systolic 113–150; BP diastolic 70–90; PULSE 72–104; TEMP 36.6–36.9; O2SAT 86–95; Ht 160 cm; Wt 81.8 kg
[2017-06-06] MEDS: CEFAZOLIN IV 2,000 MG in DEXTROSE 5% 50ML 50 ML IV SCH (04:11)
[2017-06-06] MEDS: SODIUM CHLORIDE 0.9% 1000ML 1,000 ML IV SCH (05:50)
[2017-06-06] MEDS: DEXAMETHASONE INJ 6 MG in SYRINGE 0 ML IV SCH ×2 (05:51→13:26)
[2017-06-06] MEDS ORDERED: HYDROmorphone INJ 0.5 MG/0.5 ML SYR IV PRN ×2 (06:00→07:00)
[2017-06-06] MEDS ORDERED: NALOXONE HCL 0.4 MG/1 ML VIAL/CARP IV PRN (06:00)
[2017-06-06] MEDS ORDERED: DC PCA ONE (06:00)
[2017-06-06] MEDS ORDERED: HYDROmorphone INJ 1 MG/ML SYR IV PRN (06:00)
[2017-06-06 06:07] LABS: BASO % 0.1 %; BASO ABS # 0.01 K/uL (0-0.2); COMPLETE YES; IG% 0.8 %; LYMPH % 7.6 %; MEAN CELL VOLUME 89.9 fL (80-100); MEAN CORPUSCULAR HEMOGLOBIN 29.7 pg (25-34); MEAN PLATELET VOLUME 9.8 fL (7.4-10.4); MONO % 2.6 %; NEUT % 88.9 %; PLATELET COUNT 289 K/uL (130-400); RED BLOOD COUNT 3.67 M/uL (4.2-5.4); WHITE BLOOD COUNT 13.18 K/uL (4.8-10.8)
[2017-06-06 06:33] LABS: BUN/CREATININE RATIO 17.4 (10-20); CALCIUM 8.6 mg/dl (8.5-10.1); CREATININE 0.85 mg/dl (0.60-1.20); POTASSIUM 4.3 mmol/L (3.5-5.1)
[2017-06-06] MEDS ORDERED: NURSING VERBAL MED ORDER ONE (07:00)
[2017-06-06] MEDS: OXYCODONE HCL IR 5 MG TAB (IMMEDIATE RELEASE) PO PRN ×3 (07:55→17:01)
--- NOTE | 2017-06-06 08:40 | Clinical Documentation Query ---
DYAN Hicks : CLINICAL DOCUMENTATION QUERY Patient is a 72 year old female who underwent posterior lumbar decompression and instrumented fusion. EBL for the procedure was 200 ml's with subsequently documented losses to date totaling an additional 280 ml's. Additionally, net I/O is positive for 1,700 ml's. Preoperative hemoglobin and hematocrit were 14.1 g/dl and 42.7%. POD #1, repeat values are 10.9 g/dl and 33%. In your clinical opinion is this patient being managed for: ( ) Acute blood loss and hemodilutional anemia ( ) Other explanation of clinical findings (Please Explain) ( ) Unable to determine (Please Define) ( ) Need to Discuss ( ) Not Agree The medical record reflects the following clinical findings, treatment, and risk factors. Clinical Indicators: As above Treatment: Serial hematology, I/O including drain outputs Risk Factors: Acute perioperative blood loss, IVF administration Please clarify and document your clinical opinion in the progress notes and discharge summary. Terms such as "probable", "suspected", "likely", "questionable", "possible", or "still to be ruled out" are acceptable. IF IN AGREEMENT, YOU MUST DOCUMENT ABOVE DIAGNOSTIC STATEMENT IN DAILY PROGRESS NOTES AND DISCHARGE SUMMARY. This document is not part of the patient's record. Thank You, Marino Schmitt, LEONID [phone]
[2017-06-06] MEDS: BuPROPion XL 150 MG TABCR PO SCH (08:46)
[2017-06-06] MEDS: DILTIAZEM HCL (TIAzac) 180 MG CAPCR PO SCH (08:47)
[2017-06-06] MEDS: METOPROLOL SUCC 50MG EXT REL TAB PO SCH (08:47)
[2017-06-06] MEDS: DILTIAZEM HCL 120 MG EXT REL CAP PO SCH (08:47)
[2017-06-06] MEDS: PANTOprazole SOD 40 MG TAB PO SCH (08:48)
[2017-06-06] MEDS: MULTIVITAMIN TAB PO SCH (08:48)
[2017-06-06] MEDS: FLUTICASONE/SALMETEROL (ADVAIR) 500/50 INH 14 PUFF INH SCH ×2 (08:48→21:30)
[2017-06-06] MEDS: MONTELUKAST SOD 10 MG TAB PO SCH (08:48)
[2017-06-06] MEDS: CLONIDINE HCL 0.1 MG TAB PO SCH ×2 (08:48→21:00)
[2017-06-06] MEDS: ESCITALOPRAM OXALATE 20 MG TAB PO SCH (08:48)
[2017-06-06] MEDS: CHOLECALCIFEROL 1000 INTER.UNIT TAB PO SCH (08:49)
[2017-06-06] MEDS: INSULIN ASPART 100 UNITS/ML 3 ML PEN SC SCH ×4 (08:59→21:40)
[2017-06-06] MEDS ORDERED: PHARMACY GLYCEMIC MGMT CONSULT SCH (09:06)
[2017-06-06] MEDS ORDERED: INSULIN GLARGINE SOLOSTAR 100 UNITS/ML 3 ML PEN SC ONE (10:30)
--- NOTE | 2017-06-06 11:17 | Pharmacy Progress Note ---
Glycemic Control Intl Consult Date of Service Jun 06, 2017. Scope Glycemic Pharmacist consulted by Dr Heredia on 06/06/17 for glycemic control and to write orders per [facility] inpatient glycemic control protocol Objective Weight (Kilograms): 81.82 Accuchecks BSG (last 24hrs): Test 06/05/17 11:57 06/05/17 16:24 06/05/17 18:36 06/05/17 20:41 Bedside Glucose 260 mg/dl (70-90) 235 mg/dl (70-90) 286 mg/dl (70-90) 349 mg/dl (70-90) Test 06/05/17 22:35 06/06/17 05:15 06/06/17 07:57 Bedside Glucose 315 mg/dl (70-90) 341 mg/dl (70-90) Random Glucose 281 mg/dl (70-99) Laboratory Data (last 24hrs) Test 06/06/17 05:15 Anion Gap 11.0 mmol/L BUN/Creatinine Ratio 17.4 Blood Urea Nitrogen 15 mg/dl Creatinine 0.85 mg/dl Potassium Level 4.3 mmol/L Sodium Level 135 mmol/L White Blood Count 13.18 K/uL Red Blood Count 3.67 M/uL Hemoglobin 10.9 g/dL Hematocrit 33.0 % Mean Corpuscular Volume 89.9 fL Mean Corpuscular Hemoglobin 29.7 pg Mean Corpuscular Hemoglobin Concent 33.0 g/dl Platelet Count 289 K/uL Mean Platelet Volume 9.8 fL Neutrophils (%) (Auto) 88.9 % Lymphocytes (%) (Auto) 7.6 % Monocytes (%) (Auto) 2.6 % Eosinophils (%) (Auto) 0.0 % Basophils (%) (Auto) 0.1 % Neutrophils # (Auto) 11.73 K/uL Lymphocytes # (Auto) 1.00 K/uL Monocytes # (Auto) 0.34 K/uL Eosinophils # (Auto) 0.00 K/uL Basophils # (Auto) 0.01 K/uL Recent Pertinent Medications Outpatient Anti-diabetic Regimen: * Regular insulin (U-500) 75 units qam/65 units at lunch/65-70 units qpm + metformin 1g PO BID * A1c = 10.2 % 04/07/17 The patient is currently receiving: * Basal insulin: Lantus 10 units SQ x 1 on 7 pm * Correctional Insulin: Novolog Correction per scale ACHS Goal Range: Low 140 mg/dL - High 180 mg/dL Correction Factor: 30 mg/dL/unit * Prandial insulin: none * Oral Agents: on hold Risk Factors for Insulin Resistance: * Steroids: Dexamethasone 8 mg in OR, then 6 mg IV every 8 hours x 3 doses * Recent Surgery: POD #1 lumbar decompression and fusion * Diet: T2DM Assessment & Plan ASSESSMENT: * 72 yr old T2DM female with severe steroid induced hyperglycemia s/p lumbar decompression and fusion. * poor out patient control evidenced by A1c of 10.2 % * patient is insulin deficient at this point - she was given a one time dose of Lantus 10 units + Novolog 10 units yesterday evening * Typically patients on regular U-500 as an outpatient require significant reduction in dose, however, more aggressive management is needed while on steroids. Will initiate basal insulin at 50% of the patient's total home dose ( 50 % of 205 units/day -> ~100 units or 50 units BID) and titrate based on BSG. * Bolus insulin parameters were tightened due to profound effect of steroids on prandial BSGs. Her last dose of Dexamethasone IV is 06/06 @ 1400. CF and CR will be loosened after Dexamethasone is discontinued. * ADA & AACE recommend a goal blood sugar range 140-180 mg/dl for the majority of critically ill & non-critically ill patients. However, more stringent targets may be selected in individual cases. Will utilize more stringent goal of 110-140mg/dl based on patient age & comorbidities. Additionally, tighter glycemic control is warranted to facilitate wound/infection healing. PLAN FOR INPATIENT GLYCEMIC CONTROL * Resume Metformin 1000 mg PO BID today with dinner * Regular IV insulin 8 units x 1 dose for BSG > 350 mg/dL * Basal insulin with LANTUS * 50 units SQ this morning * 50-60 units SQ this pm (50 for BSG less than 140, 55 for BSG 140-200, 60 for BSG greater than 200) * Correctional Insulin with NOVOLOG per scale ACHS + 00 and 04 checks with coverage * Goal Range: Low 110 mg/dL - High 140 mg/dL * Correction Factor: 10 mg/dL/unit - loosen to 20 after dinner * Nutritional / Prandial insulin per carb ratio of 1 unit per 3 grams CHO consumed - loosen to 7 after dinner * Please note that the plan above was derived based on current level of insulin resistance and hospital stress. These recommendations are appropriate for inpatient admission only. Plan of care upon discharge will need to be reassessed to avoid potential outpatient hypo/hyperglycemia. Thank you.
[2017-06-06] MEDS ORDERED: INSULIN REGULAR 8 UNITS in SYRINGE 7.92 ML IV ONE (13:30)
[2017-06-06] MEDS ORDERED: RXC5 PO (16:02)
--- NOTE | 2017-06-06 16:03 | Discharge Instructions ---
Discharge Instructions Date of Service Jun 06, 2017. Admission Reason for Admission: Lumbar Spinal Stenosis; M48.06 Discharge Discharge Diagnosis / Problem: stenosis Discharge Goals Goal(s): Improve function Activity Recommendations Activity Limitations: per Instructions/Follow-up section . Instructions / Follow-Up Instructions / Follow-Up ACTIVITY RECOMMENDATIONS: SELF CARE INSTRUCTIONS AFTER THORACIC/LUMBAR FUSIONS 1. You may walk to your tolerance. It is good exercise for your legs and back. Expect some back and intermittent leg aches and pains. 2. You may perform "counter-top" level activities (make a sandwich, lenard with a project, etc.). 3. No bending or lifting of more than 10 pounds or back twisting of any nature (roll like a log when turning in bed). 4. You may ride in a car for 20-30 minutes at a time. No driving until after your first visit with your doctor. 5. Frequent changes of position and restricting sitting to 30 minutes at a time will help limit the amount of back spasms and stiffness you may experience. 6. You may discontinue the use of ambulatory aids (cane, crutches, etc.) once your strength and confidence allow. 7. You may assisted living care manager the shower and let water strike your incision when you arrive home at least once daily. Do not take a tub bath, sit in a hot tub or go into a swimming pool until after your first recheck in the office. SPECIAL CARE INSTRUCTIONS: VERY IMPORTANT TO READ AND REVIEW A. Your surgical incision has been closed with a cosmetic suture under the skin that will dissolve in about 6 weeks. In 14 days, you can use a pair of clean scissors and cut the suture that is left outside of the skin at the ends of your incision. 1. The small skin tapes can be removed 7 days after surgery if they have not fallen off by that point. 2. You may keep the wound open to air as much as possible to promote healing after post-op day number 5 unless told otherwise by your doctor. 3. If you think the wound looks like it is becoming infected (redness or worsening drainage) and/or you are experiencing fever, chill or worsening back pain and muscle spasms, contact the office so that we may evaluate you as soon as possible. B. Complications are uncommon, but please contact us if you have any signs or symptoms of: 1. wound infection (fever higher than 102.5 degrees F, redness, separation of wound, drainage, or increasing pain from the incision) 2. blood clots in legs (pain, swelling, redness and warmth in legs) 3. urinary tract infection (fever higher than 102.5 degrees F, burning upon urination or increased frequency of urination) 4. nerve problems (inability to walk on your toes or heels, numbness, loss of bowel or bladder control) 5. any other symptoms that concern you C. Please call the office at if you have any concerns or questions about your operation or recovery. D. No smoking! Smoking drastically decreases the chance of a solid fusion. E. Do not take any anti-inflammatory medications (Indocin, Advil, Motrin, Aspirin, Naprosyn, etc.) as these may inhibit the chance of a solid fusion. Tylenol is okay to take for pain. MANAGING PAIN AFTER SPINAL SURGERY 1. Narcotic medication is intended for short-term use and will be provided for surgical pain. Surgical pain usually lasts for a period of 4-6 weeks. Narcotic medication includes Percocet, Vicodin, Darvocet, Tylenol #3 or Lortab. 2. Longer-term pain is more appropriately treated with non-narcotic medication such as Tylenol ES. 3. Muscle spasm is not appropriately treated with narcotics. Muscle relaxers such as Soma, Flexeril or Skelaxin can be used along with Tylenol ES. 4. Remember that we all live with some "aches and pains". This is not unusual or uncommon after an injury or as we get older. a. Back pain is expected and may include muscle spasms for 4 to 6 weeks after surgery. The pain should gradually improve. If the pain worsens for no apparent reason, please contact the office. b. Intermittent leg pain may also be experienced and should not be concerned about unless it worsens for no apparent reason. If so, please contact the office. 5. We will provide appropriate medication within the normal guidelines of their prescribed use. We will also be very cautious and aware of potential abuse and extended duration of patients' medication needs. a. Pain medications are for your comfort and to assist with sleep and rest so that the tissue can heal. They are not provided in order to return to normal activity and should not be used through the day. To do so or worsening pain at night can result from ongoing tissue damage and development of tolerance to the prescribed medicine. 6. Please allow 2-3 days to process refills. Prescriptions will not be mailed but must be picked up at the office. FOLLOW UP VISIT: Keep your scheduled follow-up appointment. Any questions, please call the office at . Current Hospital Diet Patient's current hospital diet: Diabetes Type 2 Diet Discharge Diet Recommended Diet: Regular Diet Procedures Procedures Performed: L4-L5 Lumbar Laminectomy, Decompression; Pedicle Screw Fixation; Placement of Interbody Device; L4-L5 Posterolateral Fusion; Application of Allograft; Bone Morphogenetic Protein Pending Studies Studies pending at discharge: no Laboratory Results Hemoglobin A1c Test 04/07/17 13:27 Range/Units Estimated Average Glucose 246 mg/dl Hemoglobin A1c 10.2 H 4.5-5.6 % Medical Emergencies . Who to Call and When: Medical Emergencies: If at any time you feel your situation is an emergency, please call 911 immediately. . Non-Emergent Contact Non-Emergency issues call your: Primary Care Provider, Ladle Mechanic . "Provider Documentation" section prepared by Cornelius Hardy. . VTE Core Measure Inpt VTE Proph given/why not?: Irish Carreon, SCD's
--- NOTE | 2017-06-06 16:09 | Progress Note ---
Progress Note Date of Service Jun 06, 2017. Progress Note Patient progressing nicely postoperatively. Leg pain markedly improved. Vital signs are stable. RIO drain 140 mL today. She is excellent strength in detail testing. Assessment status post lumbar decompression fusion. Plans this time we'll continue to advance physical therapy her bowel regimen and anticipate home Friday or Friday.
[2017-06-06] MEDS: METFORMIN HCL 500 MG TAB PO SCH (19:20)
[2017-06-06] MEDS: DOXEPIN HCL 75 MG CAP PO SCH (21:00)
[2017-06-06] MEDS: RANITIDINE HCL 150 MG TAB PO SCH (21:31)
[2017-06-06] MEDS: DOCUSATE SODIUM/SENNA 50/8.6MG TAB PO SCH (21:32)
[2017-06-06] MEDS: ATORVASTATIN 40 MG TAB PO SCH (21:33)
[2017-06-06] MEDS: INSULIN GLARGINE SOLOSTAR 100 UNITS/ML 3 ML PEN SC SCH (21:37)
[2017-06-07 00:04] VITALS: BP 146/81; PULSE 68; TEMP 36.5; O2SAT 95
[2017-06-07] MEDS: OXYCODONE HCL IR 5 MG TAB (IMMEDIATE RELEASE) PO PRN ×5 (00:11→18:25)
--- NOTE | 2017-06-07 00:43 | Hospitalist Progress Note ---
Hospitalist Progress Note Date of Service Jun 06, 2017. Subjective Pt evaluation today including: conversation w/ patient, physical exam, chart review, lab review Pain: pain well-controlled Patient is presently alert, conversant however she falls asleep easily which she and I both attributed to the effects of anesthesia with pain medications. Objective Vital Signs Date Time Temp Pulse Resp B/P (MAP) Pulse Ox O2 Delivery O2 Flow Rate FiO2 06/07/17 00:04 36.5 68 14 146/81 (102) 95 Nasal Cannula 2.0 06/06/17 16:45 Nasal Cannula 2.0 06/06/17 15:25 36.7 72 18 113/75 (88) 95 Nasal Cannula 2.0 06/06/17 11:41 92 Nasal Cannula 2.0 06/06/17 11:37 36.9 90 20 140/76 (97) 86 Room Air 06/06/17 09:50 94 06/06/17 09:13 102 130/87 (101) 94 Room Air 06/06/17 08:43 95 Nasal Cannula 2.0 06/06/17 07:45 Room Air 06/06/17 07:30 36.6 104 20 150/90 (110) 95 Nasal Cannula 2.0 06/06/17 03:06 36.7 96 16 115/70 (85) 94 Nasal Cannula 2.0 Physical Exam Eyes: normal inspection Neck: trachea midline Respiratory/Chest: lungs clear Cardiovascular: regular rate, rhythm Abdomen: normal bowel sounds Extremities: normal inspection Laboratory Results Last 24 Hours Test 06/06/17 05:15 06/06/17 07:57 06/06/17 11:57 06/06/17 16:39 White Blood Count 13.18 K/uL Red Blood Count 3.67 M/uL Hemoglobin 10.9 g/dL Hematocrit 33.0 % Mean Corpuscular Volume 89.9 fL Mean Corpuscular Hemoglobin 29.7 pg Mean Corpuscular Hemoglobin Concent 33.0 g/dl Platelet Count 289 K/uL Mean Platelet Volume 9.8 fL Neutrophils (%) (Auto) 88.9 % Lymphocytes (%) (Auto) 7.6 % Monocytes (%) (Auto) 2.6 % Eosinophils (%) (Auto) 0.0 % Basophils (%) (Auto) 0.1 % Neutrophils # (Auto) 11.73 K/uL Lymphocytes # (Auto) 1.00 K/uL Monocytes # (Auto) 0.34 K/uL Eosinophils # (Auto) 0.00 K/uL Basophils # (Auto) 0.01 K/uL RDW Standard Deviation 45.0 fL RDW Coefficient of Variation 13.7 % Immature Granulocyte % (Auto) 0.8 % Immature Granulocyte # (Auto) 0.10 K/uL Sodium Level 135 mmol/L Potassium Level 4.3 mmol/L Chloride Level 102 mmol/L Carbon Dioxide Level 22 mmol/L Anion Gap 11.0 mmol/L Blood Urea Nitrogen 15 mg/dl Creatinine 0.85 mg/dl Est Creatinine Clear Calc Drug Dose 60.6 ml/min Estimated GFR () 79.3 Estimated GFR (Non- 68.5 BUN/Creatinine Ratio 17.4 Random Glucose 281 mg/dl Calcium Level 8.6 mg/dl Bedside Glucose 341 mg/dl 397 mg/dl 307 mg/dl Test 06/06/17 20:19 06/07/17 00:03 Bedside Glucose 276 mg/dl 138 mg/dl Assessment and Plan (1) Lumbar stenosis with neurogenic claudication Assessment & Plan: Status post decompression surgery postoperative day #0 doing well (2) Hyperlipidemia (3) Diabetes mellitus Assessment & Plan: Pharmacy managing (4) Benign hypertension Assessment & Plan: Follow blood pressure
[2017-06-07] MEDS: INSULIN ASPART 100 UNITS/ML 3 ML PEN SC SCH ×6 (04:35→21:27)
[2017-06-07] MEDS: POLYETHYLENE (MIRALAX) 17 GM PACK PO SCH ×3 (05:52→18:00)
[2017-06-07 07:25] VITALS: BP 134/78; PULSE 75; TEMP 36.9; O2SAT 92
[2017-06-07] MEDS: FLUTICASONE/SALMETEROL (ADVAIR) 500/50 INH 14 PUFF INH SCH ×2 (09:00→21:16)
[2017-06-07] MEDS: DILTIAZEM HCL (TIAzac) 180 MG CAPCR PO SCH (09:00)
[2017-06-07] MEDS: CLONIDINE HCL 0.1 MG TAB PO SCH ×2 (09:40→21:17)
[2017-06-07] MEDS: ESCITALOPRAM OXALATE 20 MG TAB PO SCH (09:40)
[2017-06-07] MEDS: BuPROPion XL 150 MG TABCR PO SCH (09:40)
[2017-06-07] MEDS: DILTIAZEM HCL 120 MG EXT REL CAP PO SCH (09:41)
[2017-06-07] MEDS: CHOLECALCIFEROL 1000 INTER.UNIT TAB PO SCH (09:41)
[2017-06-07] MEDS: MULTIVITAMIN TAB PO SCH (09:42)
[2017-06-07] MEDS: METFORMIN HCL 500 MG TAB PO SCH ×2 (09:42→18:23)
[2017-06-07] MEDS: PANTOprazole SOD 40 MG TAB PO SCH (09:45)
[2017-06-07] MEDS: MONTELUKAST SOD 10 MG TAB PO SCH (09:45)
[2017-06-07] MEDS: METOPROLOL SUCC 50MG EXT REL TAB PO SCH (09:47)
[2017-06-07] MEDS: INSULIN GLARGINE SOLOSTAR 100 UNITS/ML 3 ML PEN SC SCH ×2 (09:54→21:23)
--- NOTE | 2017-06-07 10:05 | Progress Note ---
Progress Note Date of Service Jun 07, 2017. Progress Note Patient is postop day 2. Back pain and leg pain improved. Vital signs are stable RIO drain decreasing appropriate. Physical exam she has ensured that satisfactory strength testing appears comfortable. Assessment status post lumbar decompression fusion. Plan at this time will continue physical therapy today anticipate discharge home Friday.
[2017-06-07 15:04] VITALS: BP 115/74; PULSE 69; TEMP 36.5; O2SAT 91
--- NOTE | 2017-06-07 15:42 | Pharmacy Progress Note ---
Glycemic: Assessment & Plan Date of Service Jun 07, 2017. Assessment & Plan Outpatient Anti-diabetic Regimen: * Regular insulin (U-500) 75 units qam/65 units at lunch/65-70 units qpm + metformin 1g PO BID * A1c = 10.2 % 04/07/17 Risk Factors for Insulin Resistance: * Steroids: Dexamethasone 8 mg in OR, then 6 mg IV every 8 hours x 3 doses - last dose 06/06 @ 1400 * Recent Surgery: POD #2 lumbar decompression and fusion * Diet: T2DM ASSESSMENT: Initial: * 72 yr old T2DM female with severe steroid induced hyperglycemia s/p lumbar decompression and fusion. * poor out patient control evidenced by A1c of 10.2 % * patient is insulin deficient at this point - she was given a one time dose of Lantus 10 units + Novolog 10 units yesterday evening * Typically patients on regular U-500 as an outpatient require significant reduction in dose, however, more aggressive management is needed while on steroids. Will initiate basal insulin at 50% of the patient's total home dose ( 50 % of 205 units/day -> ~100 units or 50 units BID) and titrate based on BSG. * ADA & AACE recommend a goal blood sugar range 140-180 mg/dl for the majority of critically ill & non-critically ill patients. However, more stringent targets may be selected in individual cases. Will utilize more stringent goal of 110-140mg/dl based on patient age & comorbidities. Additionally, tighter glycemic control is warranted to facilitate wound/infection healing. 06/07/17 * BSG improved overnight, however, they are trending up throughout the day * Bolus parameters were loosened yesterday evening after high dose steroids were discontinued. It appears that dose decrease was too much. Will resume tighter parameters at this time since hyperglycemia persists. * Fasting BSG improved today - continue Lantus per scale for now PLAN FOR INPATIENT GLYCEMIC CONTROL * Metformin 1000 mg PO BID * LANTUS 50-60 units SQ BID * 50 for BSG less than 140 * 55 for BSG 140-200 * 60 for BSG greater than 200 * Bolus insulin with NOVOLOG per scale ACHS + 02 check with coverage * Goal Range: Low 110 mg/dL - High 140 mg/dL * Correction Factor: 10 mg/dL/unit * Nutritional / Prandial insulin per carb ratio of 1 unit per 4 grams CHO consumed * Please note that the plan above was derived based on current level of insulin resistance and hospital stress. These recommendations are appropriate for inpatient admission only. Plan of care upon discharge will need to be reassessed to avoid potential outpatient hypo/hyperglycemia.
[2017-06-07] MEDS: ATORVASTATIN 40 MG TAB PO SCH (21:17)
[2017-06-07] MEDS: DOXEPIN HCL 75 MG CAP PO SCH (21:17)
[2017-06-07] MEDS: DOCUSATE SODIUM/SENNA 50/8.6MG TAB PO SCH (21:19)
[2017-06-07] MEDS: RANITIDINE HCL 150 MG TAB PO SCH (21:20)
[2017-06-07 23:07] VITALS: BP 111/64; PULSE 62; TEMP 36.9; O2SAT 93
[2017-06-08] MEDS: POLYETHYLENE (MIRALAX) 17 GM PACK PO SCH ×2 (00:38→06:00)
[2017-06-08] MEDS ORDERED: PHARMACY GLYCEMIC MGMT CONSULT PRN (01:45)
[2017-06-08] MEDS ORDERED: INSULIN ASPART 100 UNITS/ML 3 ML PEN SC SCH (02:00)
[2017-06-08 07:25] VITALS: BP 159/96; PULSE 77; TEMP 36.7; O2SAT 91
--- NOTE | 2017-06-08 08:01 | Orthopedic Progress Note ---
Orthopedic Progress Note Date of Service Jun 08, 2017. Subjective Post OP Day: 3 Reports: feeling well Additional Notes: Patient is up and him ambulatory. No new complaints. Overall feeling well. RIO drain output Lesher to 20 mL. She is up and him playing the hallways without issue. Objective calves soft nontender, N/V intact, dressing C/D/I, A&O x3, toes mobile Date Time Temp Pulse Resp B/P (MAP) Pulse Ox O2 Delivery O2 Flow Rate FiO2 06/08/17 07:25 36.7 77 18 159/96 (117) 91 Room Air 06/07/17 23:07 36.9 62 16 111/64 (80) 93 Room Air 06/07/17 20:20 Room Air 06/07/17 16:00 Room Air 06/07/17 15:04 36.5 69 18 115/74 (88) 91 Room Air 06/07/17 10:18 Room Air Assessment & Plan Assessment: Postoperative day 3 lumbar decompression fusion doing well. Inhouse Planning DVT Prophylaxis: Elis, MADANs Additional Notes: We will DC RIO drain and dressing change. She will have physical therapy this morning. We'll discharge her home later today. All questions have been reviewed with the patient. Discharge Planning Discharge Planning: home
--- NOTE | 2017-06-08 08:06 | Discharge Instructions ---
Discharge Instructions Date of Service Jun 08, 2017. Admission Reason for Admission: Lumbar Spinal Stenosis; M48.06 Discharge Discharge Diagnosis / Problem: status post lumbar decompression fusion. Discharge Goals Goal(s): Decrease discomfort, Improve function, Increase independence Activity Recommendations Activity Limitations: per Instructions/Follow-up section Lifting Limitations: no more than 5 pounds Driving or Machine Use: no driving until 2 week postoperative appointment evaluation . Current Hospital Diet Patient's current hospital diet: Diabetes Type 2 Diet Discharge Diet Recommended Diet: Regular Diet, Diabetes Type 2 Diet Procedures Procedures Performed: L4-L5 Lumbar Laminectomy, Decompression; Pedicle Screw Fixation; Placement of Interbody Device; L4-L5 Posterolateral Fusion; Application of Allograft; Bone Morphogenetic Protein Pending Studies Studies pending at discharge: no Laboratory Results Hemoglobin A1c Test 04/07/17 13:27 Range/Units Estimated Average Glucose 246 mg/dl Hemoglobin A1c 10.2 H 4.5-5.6 % Medical Emergencies . Who to Call and When: Medical Emergencies: If at any time you feel your situation is an emergency, please call 911 immediately. . 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 "Provider Documentation" section prepared by Francia Emmanuel. . VTE Core Measure Inpt VTE Proph given/why not?: Irish Carreon, SCD's
[2017-06-08] MEDS: FLUTICASONE/SALMETEROL (ADVAIR) 500/50 INH 14 PUFF INH SCH (08:31)
[2017-06-08] MEDS: METFORMIN HCL 500 MG TAB PO SCH (08:32)
[2017-06-08] MEDS: MULTIVITAMIN TAB PO SCH (08:33)
[2017-06-08] MEDS: ESCITALOPRAM OXALATE 20 MG TAB PO SCH (08:33)
[2017-06-08] MEDS: CLONIDINE HCL 0.1 MG TAB PO SCH (08:33)
[2017-06-08] MEDS: MONTELUKAST SOD 10 MG TAB PO SCH (08:34)
[2017-06-08] MEDS: DILTIAZEM HCL 120 MG EXT REL CAP PO SCH (08:34)
[2017-06-08] MEDS: DILTIAZEM HCL (TIAzac) 180 MG CAPCR PO SCH (08:34)
[2017-06-08] MEDS: PANTOprazole SOD 40 MG TAB PO SCH (08:34)
[2017-06-08] MEDS: METOPROLOL SUCC 50MG EXT REL TAB PO SCH (08:35)
[2017-06-08] MEDS: BuPROPion XL 150 MG TABCR PO SCH (08:36)
[2017-06-08] MEDS: CHOLECALCIFEROL 1000 INTER.UNIT TAB PO SCH (08:36)
[2017-06-08] MEDS: INSULIN GLARGINE SOLOSTAR 100 UNITS/ML 3 ML PEN SC SCH (09:39)
[2017-06-08] MEDS: INSULIN ASPART 100 UNITS/ML 3 ML PEN SC SCH (09:41)
[2017-06-08 10:06] VITALS: BP 159/96; PULSE 77; TEMP 36.7; O2SAT 91
--- NOTE | 2017-06-11 08:55 | Discharge Summary ---
Orthopedic Discharge Summary Admission Date/Reason Jun 05, 2017 at 16:03 Lumbar Spinal Stenosis; M48.06. Discharge Date/Disposition Jun 08, 2017 Home Diagnosis Principal Diagnosis: spinal stenosis Procedure(s) Performed lumbar decompression/fusion Medication Reconciliation New Medications: Oxycodone HCl (Oxycodone HCl) 5 Mg Tab 5-10 MG PO Q4H PRN for Moderate - severe pain for 30 Days, #60 TAB Continued Medications: Albuterol (Ventolin Hfa) 60 Puffs/5400 Mcg Aers 2 PUFFS INH q4-6h PRN for Shortness of Breath Amoxicillin (Amoxil) 500 Mg Tab 500 MG PO DAILY, TAB TAKE 2 CAPSULES 1 HOUR BEFORE DENTAL PROCEDURE AND 1 CAPSULE 6 HOURS AFTER PROCEDURE Aspirin (Aspirin 81) 81 Mg Tab 81 MG PO QAM Atorvastatin Calcium (Lipitor) 80 Mg Tab 80 MG PO HS, TAB Azelastine Hcl (Ophth) (Azelastine Hcl) 0.05 % Дмитрий 2 SPRAYS INTNAS BID PRN for congestiion Bupropion Hcl (Wellbutrin Xl) 150 Mg Tab 1 TAB PO DAILY for 30 Days, #30 TAB Chlorthalidone (Hygroton) 25 Mg Tab 25 MG PO QAM, TAB Cholecalciferol (Vitamin D3) 1,000 Unit Tab 1 TAB PO QAM for 30 Days, #30 TAB 5 Refills Clonidine Hcl (Catapres) 0.1 Mg Tab 0.1 MG PO BID, TAB Clotrimazole W/ Betamethasone (Clotrimazole/Betamethason) 1 Lot Lot 1 DOSE TOP Q2D PRN for SKIN IRRITATION Cyanocobalamin (Vitamin B12) 1,000 Mcg Tab 1 TAB PO QAM Cyclobenzaprine Hcl (Flexeril) 10 Mg Tab 10 MG PO TID PRN for Pain, #21 TAB Dexlansoprazole (Dexilant) 60 Mg Cap 60 MG PO QAM Diltiazem HCl Coated Beads (Diltiazem HCl ER) 420 Mg Tab 420 MG PO QAM Docusate Sodium (Colace) 100 Mg Cap 100 MG PO HS PRN for PRN Doxepin (Sinequan) 25 Mg Cap 75 MG PO HS, CAP Escitalopram Oxalate (Lexapro) 20 Mg Tab 20 MG PO QAM, TAB Fluticasone Prop/Salmeterol (Advair Diskus 500-50 Mcg/Dose) 14 Puff/1 Inhaler Aerp 1 PUFF INH BID Hctz/Spironolactone (Spironolactone/Hydrochlor 25-25 mg) 1 Ea Tab 1 TAB PO QAM Insulin Human Regular (Humulin R) 500 Units/Ml Inj 75 UNITS SQ QAM 65 UNITS AT HS, IF NEEDED DURING DAY WILL TAKE 65 UNITS Ipratropium [place] (Nasal) (Atrovent Nasal [place]) 0.06 % Roseann 2 SPRY SHANA TID PRN for PRN for 30 Days, #15 ML 5 Refills Lactulose (Encephalopathy) (Lactulose) 10 Gm/15 Ml Roseann 15 ML PO DAILY Lamotrigine (Lamotrigine) 100 Mg Tab 50 MG PO BID Lorazepam (Ativan) 0.5 Mg Tab 0.5 MG PO Q6H PRN for Anxiety/Agitation, TAB Metformin Hcl (Glucophage) 500 Mg Tab 2 TAB PO BID, TAB Metoclopramide Hcl (Reglan) 5 Mg Tab 5 MG PO BID, TAB Metoprolol Succ (Toprol Xl) (Toprol-Xl ) 100 Mg Tabcr 200 MG PO QAM, TAB Mometasone Furoate (Nasonex) [place] 1 SPRAY NA PRN, BTL Montelukast Sodium (Singulair) 10 Mg Tab 10 MG PO QAM, TAB Multivitamin (Multivitamin) Tab 1 TAB PO QAM, TAB Ondansetron Hcl (Zofran) 4 Mg Tab 4 MG PO Q8H PRN for Nausea, TAB Oxycodone/Acetaminophen 5MG/325MG (Percocet 5MG/325MG) Tab 1-2 TABLETS PO Q4H PRN for Pain, TAB PAIN Pseudoephedrine-Guaifenesin (Mucinex D) 1 Tab Tab 1 TAB PO BID PRN for CONGESTION for 10 Days, #20 TAB Ranitidine Hcl (Zantac) 300 Mg Tab 300 MG PO HS, TAB Senna (Senokot) 8.6 Mg Tab 1 TAB PO BID PRN for Constipation, TAB Valacyclovir (Valtrex) 500 Mg Tab 500 MG PO QAM, TAB Admission Physical Exam As per Admitting History & Physical. Hospital Course Pt had an uneventful hospital course. Discharge Instructions Please refer to the electronic Patient Visit Report (Discharge Instructions) for additional information.
== END 2017-06-08 10:56 | disposition home or self-care (01) | DRG 460 ==
LOC: C.ACU 11:15 → C.3E 16:03 → ENRESERV 17:10
PROVIDERS: ADMIT Orthopaedic Surgery Orthopaedic Surgery of the Spine; ATTEND Orthopaedic Surgery Orthopaedic Surgery of the Spine
PROC: 0ST20ZZ Resection of Lumbar Vertebral Disc, Open Approach (ICD-10-PCS; principal; 2017-06-08)
PROC: 0SG00AJ Fusion of Lumbar Vertebral Joint with Interbody Fusion Device, Posterior Approach, Anterior Column, Open Approach (ICD-10-PCS; principal; 2017-06-08)
PROC: 0SG0071 Fusion of Lumbar Vertebral Joint with Autologous Tissue Substitute, Posterior Approach, Posterior Column, Open Approach (ICD-10-PCS; principal; 2017-06-08)
DX: M48.06 Spinal stenosis, lumbar region (principal); E78.5 Hyperlipidemia, unspecified; I11.0 Hypertensive heart disease with heart failure; E11.42 Type 2 diabetes mellitus with diabetic polyneuropathy; J45.909 Unspecified asthma, uncomplicated; M54.2 Cervicalgia; M54.5 Low back pain; K21.9 Gastro-esophageal reflux disease without esophagitis; K44.9 Diaphragmatic hernia without obstruction or gangrene; E66.9 Obesity, unspecified; Z68.32 Body mass index [BMI] 32.0-32.9, adult; E78.00 Pure hypercholesterolemia, unspecified; F41.9 Anxiety disorder, unspecified; F32.9 Major depressive disorder, single episode, unspecified; R01.1 Cardiac murmur, unspecified; I50.9 Heart failure, unspecified; I49.9 Cardiac arrhythmia, unspecified; K31.84 Gastroparesis; I65.29 Occlusion and stenosis of unspecified carotid artery; J31.0 Chronic rhinitis; G43.909 Migraine, unspecified, not intractable, without status migrainosus; Z87.19 Personal history of other diseases of the digestive system; Z85.3 Personal history of malignant neoplasm of breast; Z79.82 Long term (current) use of aspirin; Z79.899 Other long term (current) drug therapy; Z79.51 Long term (current) use of inhaled steroids; Z79.84 Long term (current) use of oral hypoglycemic drugs; Z79.4 Long term (current) use of insulin; Z79.891 Long term (current) use of opiate analgesic

== ENCOUNTER → 2017-08-11 | Outpatient (CLI) | payer BC ==
[~2017-08-11] MED LIST changes: -CEFAZOLIN 2000 MG/60 ML D5W IV SCH; -LACTATED RINGER'S 1000ML 1,000 ML IV SCH; +RXC5 PO
--- NOTE | 2017-08-11 13:04 | DIAGNOSTIC IMAGING REPORT ---
ABDOMEN 2VIEW W/PA CHEST RTN CLINICAL HISTORY: R10.9 Abdominal painR14.0 Abdominal [id number] Change in bowed pain COMPARISON STUDY: 05/24/2016 FINDINGS: The soft tissues, psoas shadows, renal outlines and intestinal gas pattern appear normal. There is no evidence for bowel obstruction. There is no evidence for free intraperitoneal air. No abnormal abdominal calcifications are seen. A frontal view of the chest was performed and is unremarkable. Low lumbar laminectomy and fusion IMPRESSION: No acute process. The above report was generated using voice recognition software. It may contain grammatical, syntax or spelling errors. Electronically signed by: Francisco Fonseca M.D. 08/11/2017 1:03 PM Dictated Date/Time: 08/11/2017 1:02 PM
== END | disposition home or self-care (01) ==
LOC: C.RAD 12:27
PROVIDERS: ATTEND Registered Nurse
DX: R10.9 Unspecified abdominal pain (principal); R14.0 Abdominal distension (gaseous); R19.4 Change in bowel habit

== ENCOUNTER → 2017-10-14 | Outpatient (CLI) | payer BC ==
[~2017-10-14] MED LIST changes: +METO100T44 PO; -METO1TAB69 PO
[2017-10-14 12:08] LABS: BASO % 0.6 %; BASO ABS # 0.05 K/uL (0-0.2); COMPLETE YES; EOS % 1.3 %; HEMATOCRIT 42.6 % (37-47); IG% 0.5 %; LYMPH % 34.9 %; LYMPH ABS # 2.88 K/uL (1.2-3.4); MEAN CELL VOLUME 85.7 fL (80-100); MEAN CORPUSCULAR HEMOGLOBIN 29.2 pg (25-34); MEAN PLATELET VOLUME 11.1 fL (7.4-10.4); MONO % 6.9 %; NEUT % 55.8 %; PLATELET COUNT 308 K/uL (130-400); RED BLOOD COUNT 4.97 M/uL (4.2-5.4); WHITE BLOOD COUNT 8.25 K/uL (4.8-10.8)
[2017-10-14 12:19] LABS: ALT/SGPT 66 U/L (12-78); BLOOD UREA NITROGEN 18 mg/dl (7-18); BUN/CREATININE RATIO 23.6 (10-20); CALCIUM 9.5 mg/dl (8.5-10.1); CARBON DIOXIDE 24 mmol/L (21-32); CHLORIDE 101 mmol/L (98-107); CREATININE 0.77 mg/dl (0.60-1.20); GLUCOSE 180 mg/dl (70-99); POTASSIUM 3.6 mmol/L (3.5-5.1); SODIUM 137 mmol/L (136-145)
[2017-10-14 12:22] LABS: ALB/GLOB RATIO 1.1 (0.9-2); ALKALINE PHOSPHATASE 145 U/L (45-117); AST/SGOT 27 U/L (15-37)
== END | disposition home or self-care (01) ==
LOC: C.LABBFT 07:34
PROVIDERS: ATTEND Nurse Practitioner Family
DX: D05.11 Intraductal carcinoma in situ of right breast (principal)

== ENCOUNTER → 2017-11-05 | Outpatient (CLI) | payer BC ==
[2017-11-05 12:54] LABS: CHOLESTEROL/HDL RATIO 4.4; ESTIMATED AVERAGE GLUCOSE 283 mg/dl; HA1C FLAG Normal (Normal); THYROID STIMULATING HORMONE 1.93 uIu/ml (0.300-4.500)
== END | disposition home or self-care (01) ==
LOC: C.LABBFT 09:31
PROVIDERS: ATTEND Physician Assistant Medical
DX: E11.49 Type 2 diabetes mellitus with other diabetic neurological complication (principal); K59.00 Constipation, unspecified

== ENCOUNTER → 2018-03-05 | Outpatient (CLI) | payer BC ==
[2018-03-05 12:44] LABS: BASO % 0.5 %; BASO ABS # 0.05 K/uL (0-0.2); EOS % 1.9 %; EOS ABS # 0.19 K/uL (0-0.5); HEMATOCRIT 43.3 % (37-47); IG# 0.08 K/uL (0.00-0.02); LYMPH % 24.5 %; MEAN CELL VOLUME 88.9 fL (80-100); MEAN CORPUSCULAR HEMOGLOBIN 30.8 pg (25-34); MEAN CORPUSCULAR HGB CONC 34.6 g/dl (32-36); MEAN PLATELET VOLUME 10.3 fL (7.4-10.4); MONO % 7.3 %; MONO ABS # 0.71 K/uL (0.11-0.59); NEUT ABS # 6.36 K/uL (1.4-6.5); PLATELET COUNT 382 K/uL (130-400); RED CELL DISTRIBUTION WIDTH CV 14.1 % (11.5-14.5); RED CELL DISTRIBUTION WIDTH SD 45.9 fL (36.4-46.3); WHITE BLOOD COUNT 9.79 K/uL (4.8-10.8)
[2018-03-05 13:01] LABS: HEMOGLOBIN A1C 8.7 % (4.5-5.6)
[2018-03-05 13:12] LABS: ALBUMIN 4.4 gm/dl (3.4-5.0); ALT/SGPT 29 U/L (12-78); BLOOD UREA NITROGEN 14 mg/dl (7-18); CALCIUM 9.9 mg/dl (8.5-10.1); CARBON DIOXIDE 24 mmol/L (21-32); CHOLESTEROL 192 mg/dl (0-200); CREATININE 0.84 mg/dl (0.60-1.20); GLUCOSE 181 mg/dl (70-99); POTASSIUM 3.7 mmol/L (3.5-5.1); SODIUM 130 mmol/L (136-145)
[2018-03-05 13:16] LABS: ALKALINE PHOSPHATASE 115 U/L (45-117); AST/SGOT 17 U/L (15-37); LDL CHOLESTEROL CALCULATED 92 mg/dl; TOTAL PROTEIN 8.1 gm/dl (6.4-8.2)
[2018-03-05 13:17] LABS: CREATININE RANDOM URINE 61.4 mg/dl
== END | disposition home or self-care (01) ==
LOC: C.LABBFT 09:11
PROVIDERS: ATTEND Internal Medicine
DX: E11.49 Type 2 diabetes mellitus with other diabetic neurological complication (principal); E11.65 Type 2 diabetes mellitus with hyperglycemia; F41.8 Other specified anxiety disorders; R07.9 Chest pain, unspecified; E55.9 Vitamin D deficiency, unspecified

== ENCOUNTER → 2018-03-19 | Outpatient (CLI) | payer BC ==
[2018-03-19 12:23] LABS: BASO % 0.6 %; BASO ABS # 0.05 K/uL (0-0.2); EOS % 2.3 %; EOS ABS # 0.21 K/uL (0-0.5); HEMATOCRIT 41.8 % (37-47); IG# 0.06 K/uL (0.00-0.02); LYMPH % 28.3 %; LYMPH ABS # 2.55 K/uL (1.2-3.4); MEAN CELL VOLUME 89.9 fL (80-100); MEAN CORPUSCULAR HEMOGLOBIN 30.1 pg (25-34); MEAN CORPUSCULAR HGB CONC 33.5 g/dl (32-36); MEAN PLATELET VOLUME 10.3 fL (7.4-10.4); MONO % 8.1 %; MONO ABS # 0.73 K/uL (0.11-0.59); PLATELET COUNT 388 K/uL (130-400); RED CELL DISTRIBUTION WIDTH CV 14.5 % (11.5-14.5); RED CELL DISTRIBUTION WIDTH SD 47.5 fL (36.4-46.3)
[2018-03-19 12:39] LABS: ALT/SGPT 27 U/L (12-78); AST/SGOT 19 U/L (15-37); BLOOD UREA NITROGEN 15 mg/dl (7-18); CALCIUM 9.2 mg/dl (8.5-10.1); CARBON DIOXIDE 26 mmol/L (21-32); GLUCOSE 135 mg/dl (70-99); POTASSIUM 3.9 mmol/L (3.5-5.1); SODIUM 133 mmol/L (136-145)
[2018-03-19 12:42] LABS: ALKALINE PHOSPHATASE 102 U/L (45-117); TOTAL PROTEIN 7.8 gm/dl (6.4-8.2)
== END | disposition home or self-care (01) ==
LOC: C.LABBFT 07:29
PROVIDERS: ATTEND Internal Medicine
DX: D05.11 Intraductal carcinoma in situ of right breast (principal); E87.1 Hypo-osmolality and hyponatremia

== ENCOUNTER → 2018-03-24 | Outpatient (CLI) | payer BC, OTHER ==
--- NOTE | 2018-03-24 12:32 | DIAGNOSTIC IMAGING REPORT ---
L FOOT MIN 3 VIEWS ROUTINE CLINICAL HISTORY: G90.522 pain COMPARISON: None. DISCUSSION: Significant degenerative change first metatarsophalangeal joint. No evidence for fracture or dislocation. Small heel spur. All remaining osseous structures are unremarkable. There is no evidence for soft tissue swelling. IMPRESSION: Considerable degenerative change first metatarsophalangeal joint. 2. Small heel spur. 3. Otherwise negative study. The above report was generated using voice recognition software. It may contain grammatical, syntax or spelling errors. Electronically signed by: Francisco Fonseca M.D. 03/24/2018 12:30 PM Dictated Date/Time: 03/24/2018 12:29 PM
== END | disposition home or self-care (01) ==
LOC: C.RAD1850 12:17
PROVIDERS: ATTEND Internal Medicine
DX: G90.522 Complex regional pain syndrome I of left lower limb (principal)

== ENCOUNTER → 2018-07-06 | Outpatient (CLI) | payer BC, OTHER ==
[~2018-07-06] MED LIST changes: -ADVIN50050 INH; -AMOX500T3 PO; +ATV/1 PO; -CLOTLOT2 TOP; +CYM/30 PO; +DEXT30TA7 PO; +DXP/75 PO; -ESCI1TAB10 PO; +GABA-112 PO; -HYG/25 PO; +INSU1SOL SC; +IPRA0.03; -IPRA0.037 NAE; -LAMO1TAB21 PO; +LAMO200T35 PO; -LORA-741 PO; -METO100T44 PO; -METO1TAB54 PO; +METO200T32 PO; +METO5TAB2 PO; -MOME50SP5; -MONT1TAB3 PO; +MONT1TAB5 PO; -MULT-506 PO; +MULTTAB58 PO; -ONDA4TAB46 PO; +ONDA4TAB54 PO; -PSEU60TA80 PO; -RXC5 PO; -SNQ/25 PO; -VALA500T60 PO; -[UNRECOGNIZED DRUG - CODE] SQ
--- NOTE | 2018-07-06 15:54 | DIAGNOSTIC IMAGING REPORT ---
L VENOUS DOPP LOWER EXT UNILAT CLINICAL HISTORY: LT LEG PAIN,R/O DVT pain. Edema. TECHNIQUE: Venous Doppler COMPARISON STUDY: None FINDINGS: Normal study IMPRESSION: Normal study The above report was generated using voice recognition software. It may contain grammatical, syntax or spelling errors. Electronically signed by: Francisco Fonseca M.D. 07/06/2018 3:53 PM Dictated Date/Time: 07/06/2018 3:52 PM
== END | disposition home or self-care (01) ==
LOC: C.ULTR 14:50
PROVIDERS: ATTEND Family Medicine
DX: M25.562 Pain in left knee (principal); M79.605 Pain in left leg

== ENCOUNTER → 2018-07-10 | Outpatient (CLI) | payer BC, OTHER ==
--- NOTE | 2018-07-10 15:11 | DIAGNOSTIC IMAGING REPORT ---
L LOWER EXTREMITY WITHOUT CT DOSE: HISTORY: Pain. Trauma. M25.562 Left knee pain TECHNIQUE: Multiaxial CT images of the left knee were performed and reformatted in the sagittal and coronal plane without the use of contrast. A dose lowering technique was utilized adhering to the principles of ALARA. COMPARISON: None. FINDINGS: No evidence for fracture or dislocation. Significant degenerative change all major joint compartments. Moderate degenerative change patellofemoral joint. No evidence for fracture or dislocation. Very small joint effusion. IMPRESSION: 1. No acute bony abnormality. 2. Considerable degenerative change all major joint compartments. 3. Very small joint effusion. The above report was generated using voice recognition software. It may contain grammatical, syntax or spelling errors. Electronically signed by: Francisco Fonseca M.D. 07/10/2018 3:10 PM Dictated Date/Time: 07/10/2018 3:08 PM
== END | disposition home or self-care (01) ==
LOC: C.CTS 14:46
PROVIDERS: ATTEND Physician Assistant
DX: M25.562 Pain in left knee (principal)

== ENCOUNTER → 2018-07-23 | Outpatient (CLI) | payer BC, OTHER ==
[2018-07-23 12:48] LABS: HEMOGLOBIN A1C 10.2 % (4.5-5.6)
[2018-07-23 13:04] LABS: GLUCOSE 191 mg/dl (70-99)
[2018-07-23 13:05] LABS: BLOOD UREA NITROGEN 17 mg/dl (7-18); CARBON DIOXIDE 25 mmol/L (21-32); CREATININE 0.86 mg/dl (0.60-1.20); POTASSIUM 3.4 mmol/L (3.5-5.1); SODIUM 132 mmol/L (136-145)
== END | disposition home or self-care (01) ==
LOC: C.LABBFT 09:43
PROVIDERS: ATTEND Internal Medicine
DX: E11.42 Type 2 diabetes mellitus with diabetic polyneuropathy (principal); E87.1 Hypo-osmolality and hyponatremia; E55.9 Vitamin D deficiency, unspecified

== ENCOUNTER 2020-12-08 10:34 | Observation (INO) ==
--- NOTE | 2020-12-08 11:02 | Emergency Department Note ---
History of Present Illness General Chief complaint: Stroke/CVA Symptoms Stated complaint: STROKE SYMPTOMS Time Seen by Provider: 12/08/20 10:43 Source: patient, RN notes reviewed and old records reviewed Mode of arrival: ambulatory Limitations: no limitations History of Present Illness Maximum Pain Intensity: 5 This patient comes in after being brought in by her after she had strokelike symptoms on Friday. She says she has had for many strokes over the last 2 years. She is on Plavix. She said on Friday around 6 PM she said she could not talk correctly or walk for about 15 minutes. She felt weak in both of her legs. No change in vision. She said her blood sugar was 236 about 2 hours prior. She did not feel hypoglycemic. She has since then recovered. She was reluctant to come to the hospital due to Covid. She is had a mild headache around 4-5 out of 10 since around 2:00 in the morning. She says is not as bad as her typical migraine. She called her doctor's office and Dr. Barboza's nurse directed her to the ER. She feels well except for the headache and has no neurologic deficits or complaints at present. Denies chest pain. She is some chronic shortness of breath which is stable with her inhalers and no different. No fever or chills or change in taste or smell. No known exposure to Covid. No bowel or bladder problems. Home Medications Medication Instructions Recorded Confirmed Type cyanocobalamin (vitamin B-12) 1,000 mcg PO QAM tab 05/13/19 12/08/20 History 1,000 mcg tablet bupropion HCl 150 mg 24 hr tablet, 150 mg PO QAM #30 tab 07/01/19 12/08/20 History extended release cholecalciferol (vitamin D3) 25 1,000 units PO QAM tab 07/01/19 12/08/20 History mcg (1,000 unit) tablet doxepin 75 mg capsule 75 mg PO QPM #90 cap 07/01/19 12/08/20 History lancets 33 gauge #100 ea 07/01/19 11/13/20 History metformin 500 mg tablet,extended 500 mg PO BID #180 tab 07/01/19 12/08/20 History release 24 hr mometasone 50 mcg/actuation nasal 2 sprays INTRANASAL BID PRN #1 gm 07/01/19 12/08/20 History spray multivitamin 1 tab PO QAM 07/01/19 12/08/20 History lactulose 15 ml PO QAM 09/15/19 12/08/20 History duloxetine 30 mg PO QAM 10/12/19 12/08/20 History gabapentin 100 mg PO TID 10/12/19 12/08/20 History albuterol sulfate 90 mcg/actuation 2 puffs INH Q4H PRN #54 gm 11/09/19 12/08/20 Rx aerosol inhaler fluticasone 500 mcg-salmeterol 50 1 puffs INH BID #180 ea 11/09/19 12/08/20 Rx mcg/dose blistr powdr for inhalation diltiazem HCl 420 mg capsule,24 420 mg PO QAM #90 cap 11/12/19 12/08/20 Rx hr,extended release levalbuterol HCl 0.63 mg/3 mL 0.63 mg INH TID PRN #360 ml 12/23/19 12/08/20 Rx solution for nebulization [id number] 50 1 cap PO Q4H PRN #30 cap 04/18/20 12/08/20 Rx mg-325 mg-40 mg capsule pen needle, diabetic 31 gauge x #300 ea 05/04/20 11/13/20 Rx 3/" polyethylene glycol 3350 [Miralax] 17 g PO HS 05/19/20 12/08/20 History sucralfate 1 gm PO ACHS #40 tab 05/24/20 12/08/20 Rx prucalopride 2 mg tablet 2 mg PO QAM tab 05/30/20 12/08/20 History valacyclovir 500 mg tablet 500 mg PO UD PRN tab 06/13/20 12/08/20 History Spiriva Respimat 2 puffs INH QAM 07/28/20 12/08/20 History clopidogrel 75 mg PO QAM 07/28/20 12/08/20 History famotidine 40 mg PO HS 07/28/20 12/08/20 History montelukast 10 mg PO QPM 07/28/20 12/08/20 History atorvastatin 80 mg tablet See Rx Instructions .ROUTE 08/11/20 12/08/20 Rx .COMPLEX #90 tab Humulin R U-500 (Conc) Kwikpen 500 310 unit SQ DAILY 90 Days #60 ml NS 08/24/20 12/08/20 Rx unit/mL (3 mL) subcutaneous oxycodone-acetaminophen [Percocet] 1 tab PO Q6H PRN #14 tab 08/30/20 12/08/20 Rx dexlansoprazole 60 mg 60 mg PO QAM #90 cap 10/05/20 12/08/20 Rx capsule,biphase delayed release ondansetron 4 mg disintegrating 4 mg PO Q8H PRN #120 tab 10/05/20 12/08/20 Rx tablet alprazolam 0.25 mg tablet 0.25 mg PO UD PRN #90 tab 10/13/20 12/08/20 Rx spironolactone 50 mg tablet 50 mg PO QAM #90 tab 10/30/20 12/08/20 Rx blood sugar diagnostic #400 ea 11/03/20 11/13/20 Rx hydrochlorothiazide 25 mg tablet 25 mg PO QAM #90 tab 11/10/20 12/08/20 Rx metoprolol succinate 200 mg PO QAM 12/08/20 12/08/20 History Allergies Allergy/AdvReac Type Severity Reaction Status Date / Time levofloxacin Allergy Intermediate ITCHY HIVES Verified 12/08/20 12:06 ofloxacin Allergy Intermediate RASH Verified 12/08/20 12:06 pioglitazone Allergy Intermediate ITCHING Verified 12/08/20 12:06 Sulfa (Sulfonamide Allergy Intermediate itchy Verified 12/08/20 12:06 Antibiotics) Past Med/Surg History Medical History Atrial premature complex Carotid stenosis, asymptomatic (06/27/14) Cerebrovascular disease Classic migraine with aura Complex regional pain syndrome type 1 affecting left shoulder DCIS (ductal carcinoma in situ) of breast Diabetic peripheral neuropathy Fatty liver Gastroparesis History of right breast cancer 2012--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 Kidney stones Lumbar radiculopathy Lumbar stenosis with neurogenic claudication Mixed hearing loss, bilateral Osteoarthritis Osteopenia Post-traumatic stress disorder Spinal stenosis TIA (transient ischemic attack) 01/2018--reason for plavix, no deficits Surgical History Abdominoplasty (05/12/13) History of anesthesia reaction difficulty waking with 1st back surgery @ [facility]--no issues since History of bilateral cataract extraction History of bilateral mastectomy History of bilateral tubal ligation History of bladder suspension procedure History of breast reconstruction Bilateral, Dr. Barr, Tanner Style 410 implant, size unknown History of carpal tunnel release of both wrists History of cholecystectomy History of colonoscopy with polypectomy History of esophagogastroduodenoscopy (EGD) History of fusion of cervical spine x3--"cant turn to the right" History of fusion of lumbar spine x4 History of oral surgery gum sx History of right breast biopsy malignant History of surgery on left wrist plate in place History of total hysterectomy with bilateral salpingo-oophorectomy (BSO) History of total right knee replacement (TKR) History of trigger finger x4--bilt hands S/P silicone breast implant Family History Son Crohn's disease Sister Ulcerative colitis Family history of diabetes mellitus Mother Family history of diabetes mellitus Brother Family history of diabetes mellitus Other No family history of adverse response to anesthesia No family history of bleeding disorder Social History Smoking Status: Never smoker Second Hand Exposure: No; Hx Alcohol Use: Yes Alcohol type: beer Hx Substance Use: No Preferred Language: Spanish Communication Ability: Effective 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 Beliefs That Will Affect Care: None marital status: Current Living Situation: Spouse current occupational status: retired Feels Safe at Home: Yes during the past year weight has: decreased > 10 lbs Dental Care, Regularly: Yes Physical Activity Frequency: Daily Seatbelt Use: always Sunscreen Use: Yes Assistive Devices: Nebulizer Review of Systems A total of 10 systems reviewed and were otherwise negative Physical Exam Vital Signs Vital Signs - 24 hr 12/08/20 10:37 12/08/20 11:21 12/08/20 12:00 Temperature 36.6 C Temperature Source Oral Pulse Rate 86 Pulse Rate [Apical] 83 71 Pulse Rate from SpO2 Sensor Pulse Rhythm [Apical] Regular Pulse Strength [Apical] Normal Respiratory Rate 16 18 20 Respiratory Effort / Characteristics Non-Labored Spontaneous Non-Labored Respiratory Depth Normal Normal Respiratory Pattern Regular Regular Blood Pressure 211/83 H Blood Pressure [Left Arm] 178/87 H 165/79 H Blood Pressure Mean 125 Blood Pressure Mean [Left Arm] 117 107 Blood Pressure Position Sitting Pulse Oximetry 98 96 94 Oxygen Delivery Method Room Air Room Air Room Air Sepsis Recent Fever Within 48 Hours No Sepsis New/Unexplained Change in Mental Status N/A Sepsis Action Taken by Nursing No Action Required 12/08/20 12:30 12/08/20 13:00 12/08/20 13:30 Temperature Temperature Source Pulse Rate 72 65 60 Pulse Rate [Apical] Pulse Rate from SpO2 Sensor 72 64 60 Pulse Rhythm [Apical] Pulse Strength [Apical] Respiratory Rate 22 23 20 Respiratory Effort / Characteristics Respiratory Depth Respiratory Pattern Blood Pressure 169/87 H 150/71 H 140/71 Blood Pressure [Left Arm] Blood Pressure Mean 122 107 88 Blood Pressure Mean [Left Arm] Blood Pressure Position Pulse Oximetry 98 98 96 Oxygen Delivery Method Room Air Room Air Room Air Sepsis Recent Fever Within 48 Hours Sepsis New/Unexplained Change in Mental Status Sepsis Action Taken by Nursing General: Well developed well nourished middle-age female who appears in no acute distress, breathing comfortably on room air. Normal speech HEENT: Normal cephalic atraumatic. Pupils are equal round and reactive to light. Extraocular movements are intact. Oropharynx is pink with moist mucous membranes. No swelling of the mouth lips or tongue. Neck: Supple with a midline trachea. No meningeal signs or stiffness, no JVD or bruits. No Stridor. Chest: Clear to auscultation bilaterally. No wheezes or rhonchi. No increased work of breathing. Previous mastectomy on right Heart: Regular rate and rhythm without murmurs or gallops. Abdomen: Soft nontender, nondistended without rebound guarding or rigidity. Extremities: No cyanosis clubbing or edema. No calf tenderness or assymetry Spine/Back. Non tender to palpation. No CVA tenderness Skin: Good turgor without rashes. Neurologic exam: Cranial nerves two through 12 are intact. Motor and sensation are intact and symmetrical throughout. Normal gait. Negative Romberg. Course Administered Medications Discontinued Medications Oxycodone HCl (Oxycodone Ir Home Pack) 1 homepack PO UD ONE Stop: 12/08/20 11:53 Last Admin: 12/08/20 12:09 Dose: Not Given [place]: [id number] Oxycodone HCl (Oxycodone Hcl Ir 5 Mg Tab (Immediate Release)) 5 mg PO NOW STA Stop: 12/08/20 12:02 Last Admin: 12/08/20 12:05 Dose: 5 mg Documented by: [id number] Medical Decision Making Differential Diagnosis CVA, TIA, intracranial hemorrhage, diabetic emergency, electrolyte or metabolic abnormality, Covid Medical Records Attestation: I reviewed the patient's medical records. Home Medications Current Medication List: was personally reviewed by me Laboratory Data Attestation: I reviewed the patient's lab results. Result diagrams: 12/08/20 11:10 12/08/20 11:10 Lab Results 12/08/20 12/08/20 12/08/20 Range/Units 11:10 11:10 11:10 WBC 8.95 (4.8-10.8) K/uL RBC 4.41 (4.2-5.4) M/uL Hgb 13.2 (12.0-16.0) g/dL Hct 39.1 (37-47) % MCV 88.7 (80-100) fL MCH 29.9 (25-34) pg MCHC 33.8 (32-36) g/dL RDW Std Deviation 48.5 H (36.4-46.3) fL RDW Coeff of Rian 14.9 H (11.5-14.5) % Plt Count 391 (130-400) K/uL MPV 10.0 (7.4-10.4) fL Immature Gran % (Auto) 0.6 % Neut % (Auto) 61.2 % Lymph % (Auto) 27.6 % [place] % (Auto) 5.5 % Eos % (Auto) 4.7 % Baso % (Auto) 0.4 % Neut # (Auto) 5.48 (1.4-6.5) K/uL Lymph # (Auto) 2.47 (1.2-3.4) K/uL [place] # (Auto) 0.49 (0.11-0.59) K/uL Eos # (Auto) 0.42 (0-0.5) K/uL Baso # (Auto) 0.04 (0-0.2) K/uL Immature Gran # (Auto) 0.05 H (0.00-0.02) K/uL PT 10.3 (9.0-12.0) Seconds INR 1.0 (0.9-1.1) APTT 26.4 (21.0-31.0) Seconds PTT Ratio 0.9 Sodium 134 L (136-145) mmol/L Potassium 3.8 (3.5-5.1) mmol/L Chloride 101 (98-107) mmol/L Carbon Dioxide 24 (21-32) mmol/L Anion Gap 10.0 (3-11) BUN 22 H (7-18) mg/dl Creatinine 1.06 (0.6-1.2) mg/dl Est Cr Clr Drug Dosing 49.1 ml/min Est GFR ( Amer) 59.5 Est GFR (Non-Af Amer) 51.3 BUN/Creatinine Ratio 20.8 H (10-20) Glucose 226 H (70-99) mg/dl POC Glucose (70-99) mg/dl Calcium 9.8 (8.5-10.1) mg/dl Magnesium 1.7 L (1.8-2.4) mg/dl Total Bilirubin 0.4 (0.2-1) mg/dl AST 21 (15-37) U/L ALT 36 (12-78) U/L Alkaline Phosphatase 128 H (45-117) U/L Troponin I < 0.015 (0-0.045) ng/ml Total Protein 7.8 (6.4-8.2) gm/dl Albumin 4.1 (3.4-5.0) gm/dl Globulin 3.7 (2.5-4.0) gm/dl Albumin/Globulin Ratio 1.1 (0.9-2) 12/08/20 Range/Units 11:12 WBC (4.8-10.8) K/uL RBC (4.2-5.4) M/uL Hgb (12.0-16.0) g/dL Hct (37-47) % MCV (80-100) fL MCH (25-34) pg MCHC (32-36) g/dL RDW Std Deviation (36.4-46.3) fL RDW Coeff of Rian (11.5-14.5) % Plt Count (130-400) K/uL MPV (7.4-10.4) fL Immature Gran % (Auto) % Neut % (Auto) % Lymph % (Auto) % [place] % (Auto) % Eos % (Auto) % Baso % (Auto) % Neut # (Auto) (1.4-6.5) K/uL Lymph # (Auto) (1.2-3.4) K/uL [place] # (Auto) (0.11-0.59) K/uL Eos # (Auto) (0-0.5) K/uL Baso # (Auto) (0-0.2) K/uL Immature Gran # (Auto) (0.00-0.02) K/uL PT (9.0-12.0) Seconds INR (0.9-1.1) APTT (21.0-31.0) Seconds PTT Ratio Sodium (136-145) mmol/L Potassium (3.5-5.1) mmol/L Chloride (98-107) mmol/L Carbon Dioxide (21-32) mmol/L Anion Gap (3-11) BUN (7-18) mg/dl Creatinine (0.6-1.2) mg/dl Est Cr Clr Drug Dosing ml/min Est GFR ( Amer) Est GFR (Non-Af Amer) BUN/Creatinine Ratio (10-20) Glucose (70-99) mg/dl POC Glucose 234 H (70-99) mg/dl Calcium (8.5-10.1) mg/dl Magnesium (1.8-2.4) mg/dl Total Bilirubin (0.2-1) mg/dl AST (15-37) U/L ALT (12-78) U/L Alkaline Phosphatase (45-117) U/L Troponin I (0-0.045) ng/ml Total Protein (6.4-8.2) gm/dl Albumin (3.4-5.0) gm/dl Globulin (2.5-4.0) gm/dl Albumin/Globulin Ratio (0.9-2) Imaging Data Radiologist's Impression: CT head/brain wo con CLINICAL HISTORY: 75 years-old Female with Stroke Like Symptoms. Acute strokelike symptoms. TECHNIQUE: Multiple axial CT images of the head were obtained without contrast. A dose lowering technique was utilized adhering to the principles of ALARA. CT DOSE: 749.40 mGy.cm COMPARISON: Head CT 03/14/2014, brain MRI 04/13/2019 FINDINGS: No acute intracranial hemorrhage, midline shift, intracranial mass, hydrocephalus, territorial ischemia or abnormal extra-axial collection. Patchy white matter hypodensities suggest chronic microvascular ischemic disease, progressively worsened from the 2014 exam. Age-indeterminate 6 mm lacunar infarct of the right frontal lobe santillan radiata/anterior limb of the right internal capsule which is new from the 2019 comparison. Cerebral vascular calcifications. The calvarium is intact. The paranasal sinuses, mastoid air cells, and middle ear cavities are clear. IMPRESSION: 1. No acute intracranial hemorrhage, midline shift or acute territorial infarct. 2. Progressively worsened chronic microvascular ischemic disease. 3. Age-indeterminate subcentimeter lacunar infarct of the right frontal lobe santillan radiata extending into the anterior limb of the right internal capsule, n ew from 04/13/2019. ECG Data Attestation: I personally reviewed and interpreted this ECG as follows: Indication: + weakness Rate (beats per minute): 82 Rhythm: + normal sinus ECG Intervals/blocks: + First degree AV block, + Normal QRS and + Normal QT ECG [place]: + Normal ECG ST segments: + Normal ST segments ECG Findings: no PACs and no PVCs Comparison ECG Date: from (07/23/20) Change: no significant change MDM Narrative This patient comes in as described above. 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 She is here for treatment and evaluation of strokelike symptoms. They occurred 2 days ago and she has been asymptomatic since then she did develop a headache last night. She is on Plavix. She looks well. A stroke alert was not called because her symptoms started 2 days ago and have resolved and she would not be a interventional or TPA candidate at this point. blood work and IV access was ordered as well as EKG and CAT scan of her head. She was reassessed frequently. She has a mildly elevated blood sugar in the 200s but no evidence to suggest DKA. EKG does not suggest cardiac disease or significant arrhythmia. She has no stick of electrolyte or metabolic abnormalities with exception of mildly elevated blood sugar. CAT scan of her head does show a lacunar infarct since her last CAT scan in 2019. Given her symptoms the other day I do think she likely had this more subacutely. I do think she needs to be admitted/observe for a neurologic/stroke work-up. I have consulted the [facility] hospitalist team to see in the ER for these measures. She is already on Plavix so I did not give her aspirin although she may need to have further anticoagulation pending the rest of her work-up. Continuous cardiac monitoring: An order was placed in the EMR for continuous cardiac monitoring. The patient was noted to have normal sinus rhythm with a pulse of 86 Impression & Plan CVA (cerebrovascular accident), Weakness, Aphasia, Admission for long-term (current) use of antiplatelets/antithrombotics Discharge Plan Visit Data Chief Complaint: Stroke/CVA Symptoms Stated Complaint: STROKE SYMPTOMS ED Provider: Marino Whitfield Discharge Problem: CVA (cerebrovascular accident), Weakness, Aphasia, Admission for long-term (current) use of antiplatelets/antithrombotics Forms Stand Alone Forms: My [employer] Prescriptions Prescriptions: No Action levalbuterol HCl 0.63 mg/3 mL solution for nebulization 0.63 mg INH TID PRN (Reason: shortness of breath or wheezing) Qty: 360 RF: 5 (DME) pen needle, diabetic [BD Ultra-Fine Mini Pen Needle] 31 gauge x 3/16" needle See Dose Instructions .ROUTE .MEDSUPPLY Qty: 300 RF: 1 atorvastatin 80 mg tablet See Rx Instructions .ROUTE .COMPLEX Qty: 90 RF: 3 spironolactone 50 mg tablet 50 mg PO QAM Qty: 90 RF: 3 (DME) OneTouch Verio test strips Strip See Dose Instructions .ROUTE .MEDSUPPLY Qty: 400 RF: 3 hydrochlorothiazide 25 mg tablet 25 mg PO QAM Qty: 90 RF: 3 mometasone 50 mcg/actuation spray,non-aerosol 2 sprays intranasal BID PRN (Reason: Allergic Symptoms) Qty: 1 RF: 0 bupropion HCl 150 mg tablet extended release 24 hr 150 mg PO QAM Qty: 30 RF: 0 doxepin 75 mg capsule 75 mg PO QPM Qty: 90 RF: 0 multivitamin [Multiple Vitamins] tablet 1 tab PO QAM RF: 0 cholecalciferol (vitamin D3) 1,000 unit (25 mcg) tablet 1,000 units PO QAM RF: 0 (DME) lancets [OneTouch Delica Lancets] 33 gauge misc See Dose Instructions .ROUTE .MEDSUPPLY Qty: 100 RF: 0 alprazolam 0.25 mg tablet 0.25 mg PO UD PRN (Reason: anxiety) Qty: 90 RF: 1 cyanocobalamin (vitamin B-12) 1,000 mcg tablet 1,000 mcg PO QAM RF: 0 metformin 500 mg tablet extended release 24 hr 500 mg PO BID Qty: 180 RF: 0 dexlansoprazole 60 mg capsule,biphase delayed releas 60 mg PO QAM Qty: 90 RF: 3 ondansetron 4 mg tablet,disintegrating 4 mg PO Q8H PRN (Reason: Nausea And Vomiting) Qty: 120 RF: 3 unustopksj-oiqfuzn-vhmdbziy [Fiorinal] 50-325-40 mg capsule 1 cap PO Q4H PRN (Reason: pain) Qty: 30 RF: 0 Motegrity 2 mg tablet 2 mg PO QAM RF: 0 albuterol sulfate [Ventolin HFA] 90 mcg/actuation HFA aerosol inhaler 2 puffs INH Q4H PRN (Reason: Shortness Of Breath Or Wheezing) Qty: 54 RF: 3 fluticasone propion-salmeterol [Advair Diskus] 500-50 mcg/dose blister with device 1 puffs INH BID Qty: 180 RF: 3 diltiazem HCl 420 mg capsule,extended release 24 hr 420 mg PO QAM Qty: 90 RF: 3 Humulin R U-500 (Conc) Kwikpen 500 unit/mL (3 mL) insulin pen 310 unit SQ DAILY 90 Days Qty: 60 RF: 3 valacyclovir 500 mg tablet 500 mg PO UD PRN (Reason: cold sores) RF: 0 lactulose 10 gram/15 mL Solution 15 ml PO QAM RF: 0 gabapentin 100 mg Capsule 100 mg PO TID RF: 0 duloxetine 30 mg Capsule,Delayed Release(Dr/Ec) 30 mg PO QAM RF: 0 polyethylene glycol 3350 [Miralax] 17 gram/dose Powder 17 g PO HS RF: 0 sucralfate 1 gram tablet 1 gm PO ACHS Qty: 40 RF: 0 famotidine 40 mg tablet 40 mg PO HS RF: 0 clopidogrel 75 mg tablet 75 mg PO QAM RF: 0 montelukast 10 mg tablet 10 mg PO QPM RF: 0 Spiriva Respimat 2.5 mcg/actuation mist 2 puffs INH QAM RF: 0 oxycodone-acetaminophen [Percocet] 5-325 mg tablet 1 tab PO Q6H PRN (Reason: pain) Qty: 14 RF: 0 metoprolol succinate 200 mg tablet extended release 24 hr 200 mg PO QAM RF: 0 Discharge Problem: CVA (cerebrovascular accident) Qualifiers: CVA mechanism: unspecified Qualified Code(s): I63.9 - Cerebral infarction, unspecified
[2020-12-08 11:37] LABS: Basophils # (auto) 0.04 K/uL (0-0.2); Basophils % (auto) 0.4 %; Eosinophils # (auto) 0.42 K/uL (0-0.5); Eosinophils % (auto) 4.7 %; Hematocrit (blood only) 39.1 % (37-47); Hemoglobin 13.2 g/dL (12.0-16.0); Immature Granulocytes # (auto) 0.05 K/uL (0.00-0.02); Immature Granulocytes % (auto) 0.6 %; Lymphocytes # (auto) 2.47 K/uL (1.2-3.4); Lymphocytes % (auto) 27.6 %; Mean Corpuscular Hemoglobin 29.9 pg (25-34); Mean Corpuscular Hgb Conc 33.8 g/dL (32-36); Mean Corpuscular Volume 88.7 fL (80-100); Monocytes # (auto) 0.49 K/uL (0.11-0.59); Monocytes % (auto) 5.5 %; Neutrophils # (auto) 5.48 K/uL (1.4-6.5); Neutrophils % (auto) 61.2 %; Platelet Count 391 K/uL (130-400); RDW Coefficient of Variation 14.9 % (11.5-14.5); RDW Standard Deviation 48.5 fL (36.4-46.3); Red Blood Count 4.41 M/uL (4.2-5.4); White Blood Count 8.95 K/uL (4.8-10.8)
--- NOTE | 2020-12-08 11:48 | CT Scan Report ---
CT head/brain wo con CLINICAL HISTORY: 75 years-old Female with Stroke Like Symptoms. Acute strokelike symptoms. TECHNIQUE: Multiple axial CT images of the head were obtained without contrast. A dose lowering tech nique was utilized adhering to the principles of ALARA. CT DOSE: 749.40 mGy.cm COMPARISON: Head CT 03/14/2014, brain MRI 04/13/2019 FINDINGS: No acute intracranial hemorrhage, midline shift, intracranial mass, hydrocephalus, territorial ischem ia or abnormal extra-axial collection. Patchy white matter hypodensities suggest chronic microvascula r ischemic disease, progressively worsened from the 2014 exam. Age-indeterminate 6 mm lacunar infarct of the right frontal lobe santillan radiata/anterior limb of the right internal capsule which is new fr om the 2019 comparison. Cerebral vascular calcifications. The calvarium is intact. The paranasal sinuses, mastoid air cells, and middle ear cavities are clear . IMPRESSION: 1. No acute intracranial hemorrhage, midline shift or acute territorial infarct. 2. Progressively worsened chronic microvascular ischemic disease. 3. Age-indeterminate subcentimeter lacunar infarct of the right frontal lobe santillan radiata extending into the anterior limb of the right internal capsule, new from 04/13/2019. ACT 112: Negative or not required by law. The above report was generated using voice recognition software. It may contain grammatical, syntax o r spelling errors. Electronically signed by: Tommy Weems M.D. 12/08/2020 11:47 AM
[2020-12-08 11:50] LABS: Partial Thromboplastin Ratio 0.9; Partial Thromboplastin Time 26.4 Seconds (21.0-31.0); Prothrombin Time 10.3 Seconds (9.0-12.0)
[2020-12-08] MEDS ORDERED: oxyCODONE IR HOME PACK PO ONE (11:52)
[2020-12-08 11:58] LABS: Alanine Aminotransferase 36 U/L (12-78); Albumin Level 4.1 gm/dl (3.4-5.0); Aspartate Aminotransferase 21 U/L (15-37); BUN Creatinine Ratio 20.8 (10-20); Blood Urea Nitrogen 22 mg/dl (7-18); Calcium 9.8 mg/dl (8.5-10.1); Carbon Dioxide 24 mmol/L (21-32); Chloride 101 mmol/L (98-107); Creatinine Clr Calc Pharmacy 49.1 ml/min; Est GFR (African American) 59.5; Est GFR (Non-African American) 51.3; Glucose 226 mg/dl (70-99); Magnesium 1.7 mg/dl (1.8-2.4); Potassium 3.8 mmol/L (3.5-5.1); Sodium 134 mmol/L (136-145)
[2020-12-08] MEDS ORDERED: oxyCODONE HCL IR 5 MG TAB (IMMEDIATE RELEASE) PO STA (12:01)
[2020-12-08 12:03] LABS: Albumin Globulin Ratio 1.1 (0.9-2); Alkaline Phosphatase 128 U/L (45-117); Bilirubin,Total 0.4 mg/dl (0.2-1); Globulin 3.7 gm/dl (2.5-4.0); Total Protein 7.8 gm/dl (6.4-8.2); Troponin I < 0.015 ng/ml (0-0.045)
--- NOTE | 2020-12-08 12:14 | Electrocardiogram Report ---
Test Reason : Blood Pressure : / mmHG Vent. Rate : 082 BPM Atrial Rate : 082 BPM P-R Int : 212 ms QRS Dur : 088 ms QT Int : 376 ms P-R-T Axes : 057 024 043 degrees QTc Int : 439 ms Sinus rhythm with 1st degree A-V block Otherwise normal ECG When compared with ECG of 23-AUG-2020 09:23, MN interval has increased Confirmed by Zia Hinds ([id number]) on 12/08/2020 12:14:10 PM Referred By: REFERRED SELF Confirmed By:Zia Hinds
--- NOTE | 2020-12-08 13:28 | History & Physical Report ---
Date of Service December 08, 2020 Assessment & Plan (1) TIA (transient ischemic attack): Mrs. Robledo is a 75 year old female with a history of Hypertension, Insulin Requiring Type 2 Diabetes Mellitus, Dyslipidemia, Gastroparesis, GERD, Iron Deficiency Anemia, Asthma, Headaches, Depression with Anxiety, Obesity, Hyponatremia, Carotid Artery Disease s/p Right Carotid Endarterectomy, Breast Cancer, Atherosclerosis, and Cerebrovascular Disease s/p previous TIA's who presented to [facility] today after having a TIA on the evening of 12/06/2020. Patient was in her usual state of health at that time, when she had relatively sudden onset contortion of her mouth, inability to speak, and right-sided weakness including her right arm and right leg. She was able to stand up with her 's help, but she was staggering and unable to walk on her own. These symptoms lasted for approximately 10-15 minutes in total, and then these symptoms completely resolved. She has not had any recurrence of these symptoms. Patient did not seek medical attention at that time due to her fear of santillan virus. She developed a mild headache approximately 2 a.m. this morning - which is not her typical migraine headache, and it is without any associated neurologic symptoms. She contacted Dr. Barboza's office -- and she was advised to come directly to the ER. On physical examination, she has decreased sandal parts assembler strength on the right, but her neurologic exam is otherwise unremarkable. CT Scan done today shows an age indeterminate subcentimeter lacunar infarct of the right frontal lobe santillan radiata extending into the anterior limb of the right internal capsule (new compared to 04/13/2019 scan) -- this doesn't seem to be consistent with the neurologic symptoms that she describes during her TIA. Recommend the following: -- Admit to observation on a monitored bed. -- Continue neuro checks. -- Continue Plavix 75 mg daily. -- Continue Atorvastatin 80 mg daily. -- Continue usual antihypertensive regimen. -- Add Aspirin 81 mg daily. -- Could consider switching from Plavix to Brilinta. -- DAPT for a minimum of 3 weeks and until seen in follow-up with Neurology. -- She does NOT have a history of Atrial Fib or Flutter, but has worn cardiac monitors in the past -- consider implantable loop recorder as she has had more than 1 neurologic event. -- Aggressive management of underlying diabetes. -- CTA of Neck and Brain. (2) Abnormal CT scan of head: -- CT Scan 12/08/2019 shows an age indeterminate subcentimeter lacunar infarct of the right frontal lobe santillan radiata extending into the anterior limb of the right internal capsule (new compared to 04/13/2019 scan) -- This doesn't seem to be consistent with the neurologic symptoms that she describes during her TIA. -- Management as outlined above. (3) HTN (hypertension): -- Continue Metoprolol Succinate ER 200 mg daily. -- Continue Diltiazem CD 420 mg daily. -- Continue HCTZ 25 mg daily. -- Continue Spironolactone 50 mg daily. (4) Diabetes mellitus, type 2: -- Glycemic management consult placed. (5) Dyslipidemia: -- Continue Atorvastatin 80 mg daily. -- Maintain heart healthy, diabetic diet. (6) Hyponatremia: -- Chronic condition. -- Current serum sodium level is 134 mmol/L. History of Present Illness Chief Complaint: -- Transient Ischemic Attack 12/06/2019. -- New age-indeterminate subcentimeter lacunar infarct of the right frontal lobe santillan radiata extending into the anterior limb of the right internal capsule -- new from 04/13/2019. -- Cerebrovascular Disease. Primary Care Provider: Abdiel Barboza MD Mrs. Robledo is a 75 year old female with a history of Hypertension, Insulin Requiring Type 2 Diabetes Mellitus, Dyslipidemia, Gastroparesis, GERD, Iron Deficiency Anemia, Asthma, Headaches, Depression with Anxiety, Carotid Artery Disease s/p Right Carotid Endarterectomy, Breast Cancer, Atherosclerosis, and Cerebrovascular Disease s/p previous TIA's who presented to [facility] today after experiencing a transient neurologic event on the evening of 12/06/2019. Patient was in her usual state of health at that time, when she had relatively sudden onset contortion of her mouth, inability to speak, and right-sided weakness including her right arm and right leg. She was able to stand up with her 's help, but she was staggering and unable to walk on her own. These symptoms lasted for approximately 10-15 minutes in total, and then these symptoms completely resolved. She has not had any recurrence of these symptoms. Patient did not seek medical attention at that time due to her fear of santillan virus. She developed a mild headache approximately 2 a.m. this morning - which is not her typical migraine headache, and it is without any associated neurologic symptoms. She contacted Dr. Barboza's office -- and she was advised to come directly to the ER. Patient offers no other complaints. She denies any recent palpitations or fast heart rates. She denies any chest pain, heaviness, tightness, pressure, or discomfort. She denies any shortness of breath, unusual dyspnea exertion, or any recent changes in her exertional tolerance. She denies any nausea, vomiting, or change in bowel habits. No urinary symptoms. She has not had any urinary incontinence. CT Scan done today shows a new age indeterminate subcentimeter lacunar infarct of the right frontal lobe santillan radiata extending into the anterior limb of the right internal capsule (new compared to 04/13/2019 scan). Allergies Allergy/AdvReac Type Severity Reaction Status Date / Time levofloxacin Allergy Intermediate ITCHY HIVES Verified 12/14/20 13:16 ofloxacin Allergy Intermediate RASH Verified 12/14/20 13:16 pioglitazone Allergy Intermediate ITCHING Verified 12/14/20 13:16 Sulfa (Sulfonamide Allergy Intermediate itchy Verified 12/14/20 13:16 Antibiotics) Home Medications Medication Instructions Recorded Confirmed Type cyanocobalamin (vitamin B-12) 1,000 mcg PO QAM tab 05/13/19 12/14/20 History 1,000 mcg tablet bupropion HCl 150 mg 24 hr tablet, 150 mg PO QAM #30 tab 07/01/19 12/14/20 History extended release cholecalciferol (vitamin D3) 25 1,000 units PO QAM tab 07/01/19 12/14/20 History mcg (1,000 unit) tablet doxepin 75 mg capsule 75 mg PO QPM #90 cap 07/01/19 12/14/20 History lancets 33 gauge #100 ea 07/01/19 12/14/20 History metformin 500 mg tablet,extended 500 mg PO BID #180 tab 07/01/19 12/14/20 History release 24 hr mometasone 50 mcg/actuation nasal 2 sprays INTRANASAL BID PRN #1 gm 07/01/19 12/14/20 History spray multivitamin 1 tab PO QAM 07/01/19 12/14/20 History lactulose 15 ml PO QAM 09/15/19 12/14/20 History duloxetine 30 mg PO QAM 10/12/19 12/14/20 History gabapentin 100 mg PO TID 10/12/19 12/14/20 History albuterol sulfate 90 mcg/actuation 2 puffs INH Q4H PRN #54 gm 11/09/19 12/14/20 Rx aerosol inhaler fluticasone 500 mcg-salmeterol 50 1 puffs INH BID #180 ea 11/09/19 12/14/20 Rx mcg/dose blistr powdr for inhalation diltiazem HCl 420 mg capsule,24 420 mg PO QAM #90 cap 11/12/19 12/14/20 Rx hr,extended release levalbuterol HCl 0.63 mg/3 mL 0.63 mg INH TID PRN #360 ml 12/23/19 12/14/20 Rx solution for nebulization [id number] 50 1 cap PO Q4H PRN #30 cap 04/18/20 12/14/20 Rx mg-325 mg-40 mg capsule pen needle, diabetic 31 gauge x #300 ea 05/04/20 12/14/20 Rx /" polyethylene glycol 3350 [Miralax] 17 g PO HS 05/19/20 12/14/20 History sucralfate 1 gm PO ACHS #40 tab 05/24/20 12/14/20 Rx prucalopride 2 mg tablet 2 mg PO QAM tab 05/30/20 12/14/20 History valacyclovir 500 mg tablet 500 mg PO UD PRN tab 06/13/20 12/14/20 History Spiriva Respimat 2 puffs INH QAM 07/28/20 12/14/20 History clopidogrel 75 mg PO QAM 07/28/20 12/14/20 History famotidine 40 mg PO HS 07/28/20 12/14/20 History montelukast 10 mg PO QPM 07/28/20 12/14/20 History atorvastatin 80 mg tablet See Rx Instructions .ROUTE 08/11/20 12/14/20 Rx .COMPLEX #90 tab Humulin R U-500 (Conc) Kwikpen 500 310 unit SQ DAILY 90 Days #60 ml NS 08/24/20 12/14/20 Rx unit/mL (3 mL) subcutaneous oxycodone-acetaminophen [Percocet] 1 tab PO Q6H PRN #14 tab 08/30/20 12/14/20 Rx dexlansoprazole 60 mg 60 mg PO QAM #90 cap 10/05/20 12/14/20 Rx capsule,biphase delayed release ondansetron 4 mg disintegrating 4 mg PO Q8H PRN #120 tab 10/05/20 12/14/20 Rx tablet alprazolam 0.25 mg tablet 0.25 mg PO UD PRN #90 tab 10/13/20 12/14/20 Rx spironolactone 50 mg tablet 50 mg PO QAM #90 tab 10/30/20 12/14/20 Rx blood sugar diagnostic #400 ea 11/03/20 12/14/20 Rx hydrochlorothiazide 25 mg tablet 25 mg PO QAM #90 tab 11/10/20 12/14/20 Rx metoprolol succinate 200 mg PO QAM 12/08/20 12/14/20 History aspirin 81 mg PO DAILY #21 tab 12/09/20 12/14/20 Rx Past Med/Surg History Medical History Atrial premature complex Carotid stenosis, asymptomatic (06/27/14) Cerebrovascular disease Classic migraine with aura Complex regional pain syndrome type 1 affecting left shoulder DCIS (ductal carcinoma in situ) of breast Diabetic peripheral neuropathy Fatty liver Gastroparesis History of right breast cancer 2012--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 Kidney stones Lumbar radiculopathy Lumbar stenosis with neurogenic claudication Mixed hearing loss, bilateral Osteoarthritis Osteopenia Post-traumatic stress disorder Spinal stenosis TIA (transient ischemic attack) 01/2018--reason for plavix, no deficits Surgical History Abdominoplasty (05/12/13) History of anesthesia reaction difficulty waking [place] [facility] [place] History of bilateral cataract extraction History of bilateral mastectomy History of bilateral tubal ligation History of bladder suspension procedure History of breast reconstruction Bilateral, Dr. Barr, Tanner Style 410 implant, size unknown History of carpal tunnel release of both wrists History of cholecystectomy History of colonoscopy with polypectomy History of esophagogastroduodenoscopy (EGD) History of fusion of cervical spine x3--"cant turn to the right" History of fusion of lumbar spine x4 History of oral surgery gum sx History of right breast biopsy malignant History of surgery on left wrist plate in place History of total hysterectomy with bilateral salpingo-oophorectomy (BSO) History of total right knee replacement (TKR) History of trigger finger x4--bilt hands S/P silicone breast implant Family History Son Crohn's disease Sister Ulcerative colitis Family history of diabetes mellitus Mother Family history of diabetes mellitus Brother Family history of diabetes mellitus Other No family history of adverse response to anesthesia No family history of bleeding disorder Social History Smoking Status: Never smoker Second Hand Exposure: No; Hx Alcohol Use: Yes Alcohol type: wine Hx Substance Use: No Preferred Language: German Communication Ability: Effective Employment Case Manager Required: No Beliefs That Will Affect Care: None marital status: Current Living Situation: Spouse current occupational status: retired Feels Safe at Home: Yes during the past year weight has: decreased > 10 lbs Dental Care, Regularly: Yes Physical Activity Frequency: Daily Seatbelt Use: always Sunscreen Use: Yes Assistive Devices: Walker Review of Systems Review of Systems: All systems reviewed & are unremarkable except as noted in Subjective Physical Exam Physical Exam: GENERAL: Patient in no acute distress. HEENT: Head is atraumatic, normocephalic. EOM's intact. Facies symmetric. No perioral cyanosis. NECK: No JVD. JVP is at the level of the clavicle sitting upright. Carotid upstrokes are + 2 bilaterally. Surgical scar over right carotid groove. CHEST/LUNGS: Clear to auscultation throughout all lung durant. No wheezes, rales, or crackles. CVS: S1 and S2 are regular without obvious murmurs, gallops, or rubs. PMI is nonpalpable. No lifts, heaves, or thrills. No abdominal aortic or renal bruits. ABDOMINAL EXAM: Bowel sounds are present. No masses, organomegaly, or tenderness. EXTREMITIES: No clubbing or cyanosis. No edema. Intact posterior tibial and radial pulses bilaterally. NEUROLOGIC EXAM: Patient is awake, alert, and oriented. Pleasant and cooperative. Answers questions appropriately. Speech is clear. Decreased right sandal parts assembler strength compared to left. Otherwise manual muscle testing reveals normal strength in the major muscle groups of the bilateral arms and legs. Gait was not assessed. 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 EKG 12/08/2020: -- Sinus rhythm with 1st degree A-V block. -- Otherwise normal EKG. -- When compared with EKG of 23-AUG-2020 09:23 - OK interval has increased. Results & Data Results & Data ([facility]) Vital Signs (Past 12 Hours) Vital Signs Temp Pulse Pulse Resp BP BP Pulse Ox 12/08/20 13:00 65 23 150/71 H 98 12/08/20 12:30 72 22 169/87 H 98 12/08/20 12:00 71 20 165/79 H 94 12/08/20 11:21 83 18 178/87 H 96 12/08/20 10:37 36.6 C 86 16 211/83 H 98 Laboratory Results Laboratory Results - last 24 hr 12/08/20 12/08/20 12/08/20 11:10 11:10 11:10 WBC 8.95 RBC 4.41 Hgb 13.2 Hct 39.1 MCV 88.7 MCH 29.9 MCHC 33.8 RDW Std Deviation 48.5 H RDW Coeff of Rian 14.9 H Plt Count 391 MPV 10.0 Immature Gran % (Auto) 0.6 Neut % (Auto) 61.2 Lymph % (Auto) 27.6 Webster % (Auto) 5.5 Eos % (Auto) 4.7 Baso % (Auto) 0.4 Neut # (Auto) 5.48 Lymph # (Auto) 2.47 Webster # (Auto) 0.49 Eos # (Auto) 0.42 Baso # (Auto) 0.04 Immature Gran # (Auto) 0.05 H PT 10.3 INR 1.0 APTT 26.4 PTT Ratio 0.9 Sodium 134 L Potassium 3.8 Chloride 101 Carbon Dioxide 24 Anion Gap 10.0 BUN 22 H Creatinine 1.06 Est Cr Clr Drug Dosing 49.1 Est GFR ( Amer) 59.5 Est GFR (Non-Af Amer) 51.3 BUN/Creatinine Ratio 20.8 H Glucose 226 H POC Glucose Calcium 9.8 Magnesium 1.7 L Total Bilirubin 0.4 AST 21 ALT 36 Alkaline Phosphatase 128 H Troponin I < 0.015 Total Protein 7.8 Albumin 4.1 Globulin 3.7 Albumin/Globulin Ratio 1.1 12/08/20 11:12 WBC RBC Hgb Hct MCV MCH MCHC RDW Std Deviation RDW Coeff of Rian Plt Count MPV Immature Gran % (Auto) Neut % (Auto) Lymph % (Auto) Webster % (Auto) Eos % (Auto) Baso % (Auto) Neut # (Auto) Lymph # (Auto) Webster # (Auto) Eos # (Auto) Baso # (Auto) Immature Gran # (Auto) PT INR APTT PTT Ratio Sodium Potassium Chloride Carbon Dioxide Anion Gap BUN Creatinine Est Cr Clr Drug Dosing Est GFR ( Amer) Est GFR (Non-Af Amer) BUN/Creatinine Ratio Glucose POC Glucose 234 H Calcium Magnesium Total Bilirubin AST ALT Alkaline Phosphatase Troponin I Total Protein Albumin Globulin Albumin/Globulin Ratio Diagnostic Findings CT SCAN of BRAIN/HEAD 12/08/2020: 1. No acute intracranial hemorrhage, midline shift or acute territorial infarct. 2. Progressively worsened chronic microvascular ischemic disease. 3. Age-indeterminate subcentimeter lacunar infarct of the right frontal lobe santillan radiata extending into the anterior limb of the right internal capsule, new from 04/13/2019. ECHOCARDIOGRAM 05/05/20: -- Normal LV size, wall motion and systolic function. -- LVEF 55-60%. -- Mild LVH. -- Mildly dilated RV with normal systolic function. -- Mild MR. -- Elevated RVSP at 30-40 mmHg. Code Status & VTE Plan Code Status Full code VTE Prophylaxis Plan VTE Prophylaxis will be ordered: Yes Supervising Physician Co-Signing Physician Notes I personally saw and examined the patient. I verified all palma points and agree with REENA Glover with the following exceptions and/or additions: 75-year-old female who presents to the ER after strokelike symptoms 2 days previously. She reports 50 minutes of not being able to talk correctly and abnormal balance for 15 minutes with associated hyperglycemia previous to this. Resolved in 15 minutes. Yesterday evening she had a similar episode. These episodes were not associated with a headache/migraine. However this morning she started with a typical migraine headache. Currently she feels back to her baseline self except for subjective right arm weakness with right neck and arm pain. O/E CN2->12 intact, no focal motor neuropathy other than mild decreased sandal parts assembler strength on right. Speech exam normal. A/P Complete stroke workup with serial neurological checks, MRI wo contrast, consult neurology Right arm pain/weakness -this appears to be her any residual complaint. Suspect this is more related to her cervical spinal pathology for which she is following up with Dr. Hardy then stroke, however her change in speech is concerning for TIA. PG Care Time/CCT Total # of Minutes Spent Total Time Spent with Patient: Total time spent is greater than 50% in coordination of care (as documented) at patient's floor/unit and/or counseling patient:35 Coding Level of Care Code 11884 OBS Care - Level 3 Diagnoses TIA (transient ischemic attack) G45.[address] scan of head R93.0 HTN (hypertension) I10 Diabetes mellitus, type 2 E11.9 Dyslipidemia E78.5 Hyponatremia E87.1 Time Spent (min) 70
[2020-12-08] MEDS ORDERED: ACETAMINOPHEN 325 MG TAB PO STA (15:07)
[2020-12-08] MEDS ORDERED: LEVALBUTEROL HCL 0.63 MG/3 ML NEB INH PRN (16:41)
[2020-12-08] MEDS ORDERED: ALBUTEROL HFA 8 GM INHALER INH PRN (16:41)
[2020-12-08] MEDS ORDERED: ALPRAZolam 0.25 MG TABLET PO PRN ×2 (16:41→16:47)
[2020-12-08] MEDS ORDERED: oxyCODONE/ACETAMINOPHEN 5mg/325mg TAB PO PRN (16:41)
[2020-12-08] MEDS ORDERED: FLUTICASONE PROPIONATE NA SPR 16 GM BTL PRN (16:41)
[2020-12-08] MEDS ORDERED: ONDANSETRON 4 MG OD TAB PO PRN (16:41)
[2020-12-08] MEDS ORDERED: PHARMACY GLYCEMIC MGMT CONSULT PRN (16:41)
[2020-12-08] MEDS ORDERED: valACYclovir HCL 500 MG TABLET PO PRN (16:41)
[2020-12-08] MEDS ORDERED: BUTALBITAL/ASPIRIN/CAFFEINE 1 TAB TAB PO PRN (16:41)
[2020-12-08] MEDS ORDERED: OPTIRAY 320 125ml IV ONE (17:33)
--- NOTE | 2020-12-08 17:56 | CT Scan Report ---
CT angio neck with con CLINICAL HISTORY: Transient ischemic attack COMPARISON STUDY: Carotid Doppler ultrasound performed 2013 TECHNIQUE: CT angiography was performed from the aortic arch to the skull base. MIP imaging was perfo rmed. The patient was scanned in a dynamic helical fashion during intravenous administration of 118 c c of Optiray 320. A dose lowering technique was utilized adhering to the principles of ALARA. CT DOSE: Technique: CT angiogram of the carotid and vertebral arteries was obtained using intravenous contrast and 3-D reconstruction. NASCET criteria was utilized. Findings: The right carotid revealed no evidence of aneurysm and no evidence of dissection. There is no evidenc e of hemodynamic significant stenosis. There are small ulcerated plaques involving the medial aspect of the right internal carotid artery just distal to the bifurcation. The left carotid revealed no evidence of hemodynamic significant stenosis. There is no evidence of an eurysm. There is no evidence of dissection. Mild narrowing of the left internal carotid artery origin demonstrates less than 20% diameter narrowing. Mild narrowing of both internal carotid arteries the level the carotid canals appear symmetric and is likely developmental. This is not felt to be hemodynamically significant. There is no evidence of hemodynamically significant vertebral stenosis. There is no evidence of verte bral dissection. Atherosclerotic changes involving both distal vertebral arteries without evidence of hemodynamically significant stenosis are noted. IMPRESSION: No evidence of hemodynamically significant carotid or vertebral artery stenosis. No evidence of disse ction. ACT 112: Negative or not required by law. Electronically signed by: Spencer Ibarra M.D. 12/08/2020 5:55 PM
[2020-12-08] MEDS ORDERED: GLUCOSE 40% GEL 15 GM TUBE PO PRN (18:00)
[2020-12-08] MEDS ORDERED: GLUCOSE 10 TABS/TUBE PO PRN (18:00)
[2020-12-08] MEDS ORDERED: GLUCAGON FOR INJ 1 MG VIAL IM PRN (18:00)
[2020-12-08] MEDS ORDERED: DEXTROSE 50% 50 ML SYRINGE IV PRN (18:00)
--- NOTE | 2020-12-08 18:09 | CT Scan Report ---
CT angio head w con CLINICAL HISTORY: TIA TECHNIQUE: CT angiography of the head was performed in a dynamic helical fashion during intravenous a dministration of 118 cc of Optiray 320. MIP imaging was performed. A dose lowering technique was util ized adhering to the principles of ALARA. CT DOSE: 1191.38 mGycm COMPARISON STUDY: No previous studies for comparison. FINDINGS: There are no lesion suspicious for aneurysm. There are no major intracranial branch occlusi ons. The dural venous sinuses appear patent. The right M2 segment appears slightly more narrow than t he left. A discrete focal stenosis or occlusion is not identified on this finding may be developmenta l. IMPRESSION: Unremarkable CT angiography the brain. ACT 112: Negative or not required by law. Electronically signed by: Spencer Ibarra M.D. 12/08/2020 6:07 PM
[2020-12-08] MEDS: ENOXAPARIN INJ 40 MG/0.4 ML SYR SQ SCH (18:15)
[2020-12-08] MEDS: SUCRALFATE 1 GM TAB PO SCH ×2 (18:17→20:55)
--- NOTE | 2020-12-08 19:36 | Pharmacy Report ---
Pharmacy Glycemic Short Note 2 - Date of Service December 08, 2020 - Glycemic Short BSG Results (Last 24 hours): 12/08/20 12/08/20 12/08/20 11:10 11:12 16:43 Glucose 226 H POC Glucose 234 H 162 H OUTPATIENT ANTIDIABETIC REGIMEN: * Humulin R (U-500) insulin * per patient, 100 units SC breakfast, 85 units SC lunch, and 100 units SC dinner * Metformin 500 mg PO BIDM * HbA1c: 8.6% (08/21/20) ASSESSMENT: * MR is a 75 year old female who presented to ED this morning with sudden onset stroke-like symptoms * Likely TIA * Patient on U-500 insulin as an outpatient * Discussed insulin regimen with patient (see above) * Patient is comfortable receiving 80 units of U-500 this evening (diet is ordered for dinner) * BSGs so far today of 234 and 162 mg/dL PLAN FOR INPATIENT GLYCEMIC CONTROL: * Hold outpatient oral diabetes medications * U-500 insulin * 80 units SC x 1 with dinner * Will reassess dosing tomorrow morning * Bolus insulin * NovoLog per scale ACHS or Q6hrs while NPO * Goal Range: Low 110 mg/dL - High 150 mg/dL * Correction Factor: 15 mg/dL/unit * Nutritional / Prandial insulin per carb ratio of 1 unit per - grams CHO consumed * 0200 check with same parameters PLAN FOR DISCHARGE: * tbd
[2020-12-08] MEDS ORDERED: PNEUMOCOCCAL ADMINISTRATION CHARGE ONE (19:43)
[2020-12-08] MEDS ORDERED: PNEUMOCOCCAL POLYSACCHARIDES 25 MCG/0.5 ML VIAL/SYR IM ONE (19:43)
[2020-12-08] MEDS: GABAPENTIN 100 MG CAP PO SCH (20:56)
[2020-12-08] MEDS ORDERED: MONTELUKAST SODIUM 10 MG TABLET PO SCH (21:00)
[2020-12-08] MEDS ORDERED: POLYETHYLENE (MIRALAX) 17 GM PACK PO SCH (21:00)
[2020-12-08] MEDS ORDERED: FAMOTIDINE 40 MG TABLET PO SCH (21:00)
[2020-12-08] MEDS ORDERED: ATORVASTATIN 40 MG TAB PO SCH (21:00)
[2020-12-08] MEDS ORDERED: DOXEPIN HCL 75 MG CAPSULE PO SCH (21:00)
[2020-12-08] MEDS: INSULIN ASPART 100 UNITS/ML 3 ML PEN SC SCH (21:48)
[2020-12-09] MEDS: CARBOHYDRATES FOR HYPOGLYCEMIA PO PRN ×3 (02:00→15:26)
[2020-12-09] MEDS ORDERED: INSULIN ASPART 100 UNITS/ML 3 ML PEN SC SCH ×2 (02:00)
[2020-12-09] MEDS: ENOXAPARIN INJ 40 MG/0.4 ML SYR SQ SCH (05:53)
[2020-12-09 06:57] LABS: Basophils # (auto) 0.02 K/uL (0-0.2); Basophils % (auto) 0.3 %; Eosinophils # (auto) 0.11 K/uL (0-0.5); Eosinophils % (auto) 1.9 %; Immature Granulocytes # (auto) 0.03 K/uL (0.00-0.02); Immature Granulocytes % (auto) 0.5 %; Lymphocytes # (auto) 1.75 K/uL (1.2-3.4); Lymphocytes % (auto) 30.1 %; Mean Corpuscular Hemoglobin 29.6 pg (25-34); Mean Corpuscular Hgb Conc 33.3 g/dL (32-36); Mean Corpuscular Volume 88.8 fL (80-100); Mean Platelet Volume 9.7 fL (7.4-10.4); Monocytes # (auto) 0.34 K/uL (0.11-0.59); Monocytes % (auto) 5.8 %; Neutrophils # (auto) 3.57 K/uL (1.4-6.5); Neutrophils % (auto) 61.4 %; Platelet Count 381 K/uL (130-400); RDW Coefficient of Variation 15.1 % (11.5-14.5); RDW Standard Deviation 48.9 fL (36.4-46.3); Red Blood Count 4.39 M/uL (4.2-5.4); White Blood Count 5.82 K/uL (4.8-10.8)
[2020-12-09 07:08] LABS: Estimated Average Glucose 217 mg/dl; Hemoglobin A1C 9.2 % (4.5-5.6)
[2020-12-09 08:11] LABS: BUN Creatinine Ratio 16.7 (10-20); Calcium 9.3 mg/dl (8.5-10.1); Creatinine Clr Calc Pharmacy 51.2 ml/min; Est GFR (African American) 63.1; Est GFR (Non-African American) 54.4; Potassium 4.1 mmol/L (3.5-5.1)
[2020-12-09] MEDS: SUCRALFATE 1 GM TAB PO SCH ×2 (08:16→12:02)
[2020-12-09] MEDS: GABAPENTIN 100 MG CAP PO SCH ×2 (08:19→14:20)
[2020-12-09] MEDS: INSULIN ASPART 100 UNITS/ML 3 ML PEN SC SCH ×2 (08:27→12:03)
[2020-12-09] MEDS ORDERED: dilTIAZem HCL 180 MG CAPCR PO SCH (09:00)
[2020-12-09] MEDS ORDERED: CHOLECALCIFEROL 1,000 UNITS 25 MCG TAB PO SCH (09:00)
[2020-12-09] MEDS ORDERED: FLUTICASONE/VILANTEROL 100/25MCG 14 PUFFS/INHALER INH SCH (09:00)
[2020-12-09] MEDS ORDERED: LACTULOSE SYRUP 10 GM/15 ML BTL 960 ML PO SCH (09:00)
[2020-12-09] MEDS ORDERED: MULTIVITAMIN TAB PO SCH (09:00)
[2020-12-09] MEDS ORDERED: CLOPIDOGREL BISULFATE 75 MG TAB PO SCH (09:00)
[2020-12-09] MEDS ORDERED: DULoxetine HCL 30 MG CAP PO SCH (09:00)
[2020-12-09] MEDS ORDERED: PANTOprazole 40 MG TAB PO SCH (09:00)
[2020-12-09] MEDS ORDERED: SPIRONOLACTONE 25 MG TAB PO SCH (09:00)
[2020-12-09] MEDS ORDERED: dilTIAZem HCL 240 MG CAPCR PO SCH (09:00)
[2020-12-09] MEDS ORDERED: hydroCHLOROthiazide 25 MG TAB PO SCH (09:00)
[2020-12-09] MEDS ORDERED: buPROPion XL 150 MG TABCR PO SCH (09:00)
[2020-12-09] MEDS ORDERED: METOPROLOL SUCC 50MG EXT REL TAB PO SCH (09:00)
[2020-12-09] MEDS ORDERED: CYANOCOBALAMIN 500 MCG TABLET (VITAMIN B-12) PO SCH (09:00)
[2020-12-09] MEDS ORDERED: UMECLIDINIUM BROMIDE 62.5MCG/BLISTER 7 PUFFS/INHALER INH SCH (09:00)
--- NOTE | 2020-12-09 14:15 | Discharge Summary ---
Date of Service December 09, 2020 Admission HPI Per Admitting Provider Mrs. Robledo is a 75 year old female with a history of Hypertension, Insulin Requiring Type 2 Diabetes Mellitus, Dyslipidemia, Gastroparesis, GERD, Iron Deficiency Anemia, Asthma, Headaches, Depression with Anxiety, Carotid Artery Disease s/p Right Carotid Endarterectomy, Breast Cancer, Atherosclerosis, and Cerebrovascular Disease s/p previous TIA's who presented to [facility] ER today after experiencing a transient neurologic event on the evening of 12/06/2019. Patient was in her usual state of health at that time, when she had relatively sudden onset contortion of her mouth, inability to speak, and right-sided we akness including her right arm and right leg. She was able to stand up with her 's help, but she was staggering and unable to walk on her own. These symptoms lasted for approximately 10-15 minutes in total, and then these symptoms completely resolved. She has not had any recurrence of these symptoms. Patient did not seek medical attention at that time due to her fear of santillan virus. She developed a mild headache approximately 2 a.m. this morning - which is not her typical migraine headache, and it is without any associated neurologic symptoms. She contacted Dr. Barboza's office -- and she was advised to come directly to the ER. Patient offers no other complaints. She denies any recent palpitations or fast heart rates. She denies any chest pain, heaviness, tightness, pressure, or discomfort. She denies any shortness of breath, unusual dyspnea exertion, or any recent changes in her exertional tolerance. She denies any nausea, vomiting, or change in bowel habits. No urinary symptoms. She has not had any urinary incontinence. CT Scan done today shows a new age indeterminate subcentimeter lacunar infarct of the right frontal lobe santillan radiata extending into the anterior limb of the right internal capsule (new compared to 04/13/2019 scan). Admission Exam Per Admitting Provider GENERAL: Patient in no acute distress. HEENT: Head is atraumatic, normocephalic. EOM's intact. Facies symmetric. No perioral cyanosis. NECK: No JVD. JVP is at the level of the clavicle sitting upright. Carotid upstrokes are + 2 bilaterally. Surgical scar over right carotid groove. CHEST/LUNGS: Clear to auscultation throughout all lung durant. No wheezes, rales, or crackles. CVS: S1 and S2 are regular without obvious murmurs, gallops, or rubs. PMI is nonpalpable. No lifts, heaves, or thrills. No abdominal aortic or renal bruits. ABDOMINAL EXAM: Bowel sounds are present. No masses, organomegaly, or tenderness. EXTREMITIES: No clubbing or cyanosis. No edema. Intact posterior tibial and radial pulses bilaterally. NEUROLOGIC EXAM: Patient is awake, alert, and oriented. Pleasant and cooperative. Answers questions appropriately. Speech is clear. Decreased right pace analyst strength compared to left. Otherwise manual muscle testing reveals normal strength in the major muscle groups of the bilateral arms and legs. Gait was not assessed. Principal Diagnosis TIA (Transient Ischemic Attack) Discharge Exam Constitutional WD/WN, vitals as above Eyes PERRL, conjunctivae normal, anicteric sclerae Neck trachea midline, no thyromegaly Respiratory normal respiratory effort, lungs clear to auscultation Cardiovascular RRR, no murmur, no edema Gastrointestinal (Abdomen) normal bowel sounds, soft, nontender, no hepatosplenomegaly Musculoskeletal no cyanosis or clubbing, extremities motor strength 5/5 Neurologic PERRL, EOMI, accommodation nl, no face palsy, no dysarthria normal touch/pain/proprioception Speech / Cognition: normal speech Motor/Sensory: normal movement No appreciable motor strength differences noted Discharge Data Allergies Allergy/AdvReac Type Severity Reaction Status Date / Time levofloxacin Allergy Intermediate ITCHY HIVES Verified 12/08/20 12:06 ofloxacin Allergy Intermediate RASH Verified 12/08/20 12:06 pioglitazone Allergy Intermediate ITCHING Verified 12/08/20 12:06 Sulfa (Sulfonamide Allergy Intermediate itchy Verified 12/08/20 12:06 Antibiotics) Consultations 12/08/20 13:15 ED Decision to Admit Stat Ordered Studies 12/08/20 10:55 CT head/brain wo con Stat 12/08/20 16:41 CT angio head w con Routine CT angio neck with con Routine Hospital Course (1) TIA (transient ischemic attack): Pt has done well during her period of observation. She has continued on her Aspirin and PLavix with no side effects. No return or repeat symptoms have occurred including her weakness or aphasia. She is eating normal meals. No difficulty with her balance during ambulation. No repeat symptoms of dizziness or vertigo. Discussed the importance of follow up with her PCP and Neurology, Dr. Webber. Recommend completion of Outpatient cardiac ECHO Prevention reviewed including improved control of her known Risk Factors. Increased regular activity and weight loss. Important she reports is evaluated for future symptoms as she is at increased risk for future TIA/CVA. (2) Weakness: Resolved at this time, see above treatment for prevention. (3) Aphasia: Resolved at this time, see above treatment for prevention. (4) HTN (hypertension): Continue her outpatient medications, no adjustments at this time. Dietary control, exercise and weight loss to further reduce her risks. (5) Diabetes mellitus, type 2: Diabetes is considered uncontrolled with A1C >9.0. recommend Goal of 7-8 and continued evaluation and treatment with her PCP. Follow up with Endocrinology. Continue her current medications. Dietary control, exercise and weight loss to further reduce her risks. (6) Dyslipidemia: Continue High Dose Statin treatment. (7) Abnormal CT scan of head: No additonal intervention at this time, please follow up with neurology for review. Total Time Total Time Spent Total Time Spent (In Minutes): 35 Discharge Plan Discharge Items Patient Disposition: Home - Self-Care Reason For Visit: TIA Discharge Diagnosis: TIA Condition on Discharge: Good Activity: Resume your previous activity Bathing: No limitations Sexual Activity: When tolerated Exercise/Sports: Gradually increase as tolerated Driving/Machine Use: No limitations Weightbearing: Full weightbearing Non-emergency contact: Primary Care Provider and Specialist Call non-emergency contact if: you have any medication questions and your symptoms worsen Follow-up/Referrals: Abdiel Barboza MD [Primary Care Provider] - (Follow up 1 week) Jay Webber MD [Physician] - (4-6 weeks) Bowen Torrez PA-C [Physician Real Estate Valuer] - (4 weeks) Diet: Carb Consistent or DM2 and Heart Healthy Addtl Attending Provider Instructions: Pt has done well during her period of observation. She has continued on her Aspirin and PLavix with no side effects. Continue the Aspirin for only 21days. Discussed the importance of follow up with her PCP and Neurology, Dr. Webber. Prevention reviewed including improved control of her known Risk Factors. Increased regular activity and weight loss. Important she reports is evaluated for future symptoms as she is at increased risk for future TIA/CVA. Pending Studies at Discharge: No Stand-Alone Forms: My [facility], Smoking Cessation Medications and DC Order Prescriptions: New aspirin 81 mg tablet,delayed release (DR/EC) 81 mg PO DAILY Qty: 21 RF: 0 Continued levalbuterol HCl 0.63 mg/3 mL solution for nebulization 0.63 mg INH TID PRN (Reason: shortness of breath or wheezing) Qty: 360 RF: 5 (DME) pen needle, diabetic [BD Ultra-Fine Mini Pen Needle] 31 gauge x 3/16" needle See Dose Instructions .ROUTE .MEDSUPPLY Qty: 300 RF: 1 atorvastatin 80 mg tablet See Rx Instructions .ROUTE .COMPLEX Qty: 90 RF: 3 spironolactone 50 mg tablet 50 mg PO QAM Qty: 90 RF: 3 (DME) OneTouch Verio test strips Strip See Dose Instructions .ROUTE .MEDSUPPLY Qty: 400 RF: 3 hydrochlorothiazide 25 mg tablet 25 mg PO QAM Qty: 90 RF: 3 mometasone 50 mcg/actuation spray,non-aerosol 2 sprays intranasal BID PRN (Reason: Allergic Symptoms) Qty: 1 RF: 0 bupropion HCl 150 mg tablet extended release 24 hr 150 mg PO QAM Qty: 30 RF: 0 doxepin 75 mg capsule 75 mg PO QPM Qty: 90 RF: 0 multivitamin [Multiple Vitamins] tablet 1 tab PO QAM RF: 0 cholecalciferol (vitamin D3) 1,000 unit (25 mcg) tablet 1,000 units PO QAM RF: 0 (DME) lancets [OneTouch Delica Lancets] 33 gauge misc See Dose Instructions .ROUTE .MEDSUPPLY Qty: 100 RF: 0 alprazolam 0.25 mg tablet 0.25 mg PO UD PRN (Reason: anxiety) Qty: 90 RF: 1 cyanocobalamin (vitamin B-12) 1,000 mcg tablet 1,000 mcg PO QAM RF: 0 metformin 500 mg tablet extended release 24 hr 500 mg PO BID Qty: 180 RF: 0 dexlansoprazole 60 mg capsule,biphase delayed releas 60 mg PO QAM Qty: 90 RF: 3 ondansetron 4 mg tablet,disintegrating 4 mg PO Q8H PRN (Reason: Nausea And Vomiting) Qty: 120 RF: 3 bkhmkadbts-kvaovnk-adaqrnaq [Fiorinal] 50-325-40 mg capsule 1 cap PO Q4H PRN (Reason: pain) Qty: 30 RF: 0 Motegrity 2 mg tablet 2 mg PO QAM RF: 0 albuterol sulfate [Ventolin HFA] 90 mcg/actuation HFA aerosol inhaler 2 puffs INH Q4H PRN (Reason: Shortness Of Breath Or Wheezing) Qty: 54 RF: 3 fluticasone propion-salmeterol [Advair Diskus] 500-50 mcg/dose blister with device 1 puffs INH BID Qty: 180 RF: 3 diltiazem HCl 420 mg capsule,extended release 24 hr 420 mg PO QAM Qty: 90 RF: 3 Humulin R U-500 (Conc) Kwikpen 500 unit/mL (3 mL) insulin pen 310 unit SQ DAILY 90 Days Qty: 60 RF: 3 valacyclovir 500 mg tablet 500 mg PO UD PRN (Reason: cold sores) RF: 0 lactulose 10 gram/15 mL Solution 15 ml PO QAM RF: 0 gabapentin 100 mg Capsule 100 mg PO TID RF: 0 duloxetine 30 mg Capsule,Delayed Release(Dr/Ec) 30 mg PO QAM RF: 0 polyethylene glycol 3350 [Miralax] 17 gram/dose Powder 17 g PO HS RF: 0 sucralfate 1 gram tablet 1 gm PO ACHS Qty: 40 RF: 0 famotidine 40 mg tablet 40 mg PO HS RF: 0 clopidogrel 75 mg tablet 75 mg PO QAM RF: 0 montelukast 10 mg tablet 10 mg PO QPM RF: 0 Spiriva Respimat 2.5 mcg/actuation mist 2 puffs INH QAM RF: 0 oxycodone-acetaminophen [Percocet] 5-325 mg tablet 1 tab PO Q6H PRN (Reason: pain) Qty: 14 RF: 0 metoprolol succinate 200 mg tablet extended release 24 hr 200 mg PO QAM RF: 0 Discharge Orders: Discharge Order (Routine); Ordered 12/09/20 Ordered By: Marino Romero Admission Data Admit Date/Time: 12/08/20 14:13 Attending Provider: Marino Romero Admit Provider: Abdiel Padron Primary Care Provider: Abdiel Barboza Other Providers: Abdiel Padron Other Interventions: Discharge Summary Assessment (RN) Last Done: 12/09/20 14:38 Coding Level of Care Code 67491 OBS Care - Discharge Diagnoses TIA (transient ischemic attack) G45.9 Weakness R53.1 Aphasia R47.01 HTN (hypertension) I10 Diabetes mellitus, type 2 E11.[address] scan of head R93.0
== END 2020-12-09 15:45 | disposition home or self-care (01) ==
LOC: ED 10:34 → 2N 10:34 → SUATTDRO 14:13 → 2N 16:23
DX: Z11.59 Encounter for screening for other viral diseases; I10 Essential (primary) hypertension; K76.0 Fatty (change of) liver, not elsewhere classified; E11.65 Type 2 diabetes mellitus with hyperglycemia; Z98.1 Arthrodesis status; Z88.2 Allergy status to sulfonamides; Z85.3 Personal history of malignant neoplasm of breast; Z79.899 Other long term (current) drug therapy; G90.512 Complex regional pain syndrome I of left upper limb; M54.16 Radiculopathy, lumbar region; Z96.651 Presence of right artificial knee joint; E78.5 Hyperlipidemia, unspecified; G45.9 Transient cerebral ischemic attack, unspecified; E11.43 Type 2 diabetes mellitus with diabetic autonomic (poly)neuropathy; Z88.8 Allergy status to other drugs, medicaments and biological substances; Z79.4 Long term (current) use of insulin; M48.061 Spinal stenosis, lumbar region without neurogenic claudication

== ENCOUNTER 2021-04-12 07:53 | Observation (INO) ==
[~2021-04-12 07:53] MED LIST changes: -ASPI-435 PO; -ATOR80TA PO; -ATV/1 PO; -AZEL0.055 INTNAS; +BUPIVACAINE 0.25% 30 ML VIAL ONE; -BUPRTAB PO; -CHOL1000 PO; -CTP/1 PO; -CYAN100020 PO; -CYCL10TA6 PO; -CYM/30 PO; -DEXL60CA4 PO; -DEXT30TA7 PO; -DILT1TAB PO; -DOCU-94 PO; -DXP/75 PO; -GABA-112 PO; -GLC/500 PO; -INSU1SOL SC; -IPRA0.03; -LACT10SO30 PO; -LAMO200T35 PO; +LIDOCAINE HCL 1% 20 ML VIAL ONE; -METO200T32 PO; -METO5TAB2 PO; -MONT1TAB5 PO; -MULTTAB58 PO; -ONDA4TAB54 PO; -OXYC-57 PO; -PRVHFAIN INH; -RANI300T2 PO; -SENN-61 PO; -SPIR1TAB72 PO; +VANCOMYCIN HCL 1000MG/20ML VIAL ONE; +WATER, STERILE FOR INJ 10 ML VIAL ONE
--- NOTE | 2021-04-12 08:25 | Pre Anesthesia Assessment ---
Date of Service April 12, 2021 Pre Sedation Assessment Vital Signs Temp Pulse Resp BP Pulse Ox 04/12/21 08:04 36.8 C 109 H 20 178/96 H 98 Cardiovascular + tachycardic Respiratory + respiratory effort normal Pre-Sedation Airway Assessment Smoking Status: Never smoker Hx Sleep Apnea: No Hx Difficult Intubation: No Short, Thick Neck: No Thyromental Distance: > or= 3.5 Finger Breadths Oral Cavity: + WNL Mallampati Class: II ASA: ASA3 NPO Status Date of Last Intake of Fluids: 04/11/21 Date of Last Intake of Solid Food: 04/11/21 Procedure Planning Contraindications for Sedation: none Current Medications Reviewed: Yes Notes The planned sedation has been discussed with the patient. Informed Consent was obtained. I have identified the patient, determined the appropriateness of sedation and have assessed the patient immediately prior to the procedure. All medicine(s) and interventions are by my order.
--- NOTE | 2021-04-12 08:26 | History & Physical Bridge Note ---
Date of Service April 12, 2021 History & Physical Bridge Note I have examined the patient, reviewed the History & Physical and in the interval since the performance of the History & Physical I have noted the following changes of clinical significance: no changes noted. Continued episodes of unsteadiness and gait disturbance
[2021-04-12] MEDS ORDERED: MIDAZOLAM HCL 5 MG/ML 1 ML VIAL ONE ×2 (08:40→09:16)
[2021-04-12] MEDS ORDERED: fentaNYL citrate 100 MCG/2 ML VIAL ONE ×2 (08:40→09:03)
--- NOTE | 2021-04-12 09:42 | Electrophysiology Report ---
Date of Service April 12, 2021 Electrophysiology Procedure Electrophysiology Procedure Report Procedure performed: Implantation of dual-chamber permanent pacemaker, removal of previously implanted patient activated loop recorder Staff medical services coordinator: Latrell Mcclelland MD Indication: The patient is a 75-year-old woman with a history of syncope and multiple falls. She previously undergone implantation of a patient activated loop recorder in order to determine if arrhythmia was playing a role. She did have episodes of significant bradycardia and transient heart block. She was therefore advised to consider implantation of a permanent pacemaker for symptomatic nonreversible AV node dysfunction. A dual-chamber device was selected as the patient is currently in sinus rhythm and wished to maintain AV synchrony. Procedure in detail: The patient was informed of the risks benefits and alternatives to the intended procedure and she wished to proceed. She was taken to the electrophysiology suite in a fasting state. A preoperative antibiotic had been administered. The patient was monitored electrocardiographically throughout today's procedure and conscious sedation was administered per protocol. The left upper pectoral area is prepped and draped in usual sterile fashion. The area over the previously implanted loop recorder was anesthetized using 17 is ministration of lidocaine solution. A small incision was made at this site. The device was grabbed with forceps and removed. A single 4-0 Vicryl suture was placed at the small incision. Attention was then directed to the left upper pectoral area. This area was anesthetized using subcutaneous administration of a xylocaine solution. An incision was made at this site and carried down to the prepectoralis fascia using sharp dissection. Electrocautery was also employed for dissection as well as for hemostasis. A device pocket was fashioned tissues above the pectoralis muscle. Subsequent to this maneuver the left axillary vein was accessed using modified Seldinger technique. Sheaths were placed over guidewires at this site and used to facilitate passage of the pacing leads to the respective chambers under fluoroscopic guidance. This included right atrial and right ventricular leads. Adequate sensing and threshold parameters were obtained prior to Active fixation of the leads to the endocardial surface. The proximal portion leads were then sutured the prepectoral fascia using nonabsorbable suture. The device pocket was irrigated with antibiotic solution. The leads were then attached to the device. The device and leads were then placed in the pocket and pocket was closed in 3 layers of absorbable suture. Steri-Strips and sterile dressing were applied to both incisions. The device was tested noninvasively prior to conclusion the procedure. The patient tolerated procedure well there no immediate complications. Equipment used: New pulse generator: Biztalk Architect [employer]. Model number: [id number] serial number [id number] Right atrial lead: Biztalk Architect Medtronic. Model number: 5076 serial number [id number] Right ventricular lead: Biztalk Architect Medtronic. Model number: 5076 serial number [id number] Explanted loop recorder: B[employer] Architect [employer]. Model number [id number] serial number [id number] Measured data: Right atrial lead: P waves measure 3 mV. Pacing threshold 1.5 V at 0.4 ms with a pacing impedance of 664 ohms Right ventricular lead: R waves measured 9 mV. Pacing threshold 0.5 V at 0.4 ms with a pacing impedance of 946 ohms Impression: Successful implantation of dual-chamber permanent pacemaker Successful removal of patient activated loop recorder MNPG Electrophysiology codes Pacing Procedure 1: Pacin Insert/Replace Pacer A & V Implantable Monitors Procedure 1: Implantable Monitors: [id number] Loop Recorder Explant PG Moderate Sedation Codes Moderate Sedation Codes Procedure 1: Sedation/Anesthesia: 34294 Mod Sedation by the same physician;Init15 Min Child Age 5 & Up Procedure 2: Sedation/Anesthesia: 91743 Mod Sedation by the same physician; Ea [id number] Minutes
--- NOTE | 2021-04-12 09:43 | Post Anesthesia Assessment ---
Date of Service April 12, 2021 Post Sedation Assessment Vital Signs Temp Pulse Resp BP Pulse Ox 04/12/21 08:04 36.8 C 109 H 20 178/96 H 98 Recovery Score Activity: Moves 4 extremities Respiration: Deep Breath/Cough Circulation: +/-20% PreAnes Value Consciousness: Fully Awake Oxygen Saturation: > 92% On Room Air Discharge Sedation Level of Care: Fast Track Phase II Post Sedation Plan On clinical assessment, the patient appears to have tolerated the sedation without complications. Patient is recovering as anticipated. Patient will continue to be monitored by nursing and may be discharged when sedation discharge criteria are met per below protocol. Upon Completions of procedure up to 15 minutes continue every 5 minute vital signs and the P.A.R. score; then discharge to a Phase I or Fast Track to Phase II per the following guidelines: * Discharge Patient to appropriate Phase II area if PAR is 8 or greater or return to pre- procedure baseline. The post - procedure orders will be as directed. * If PAR score is less than 8 or not return to pre-procedure baseline then patient will follow Phase I monitoring till PAR is reached for Phase II. The Phase I may be done in procedure room or may call to secure a Phase I area. * If naloxone or flumazenil are used for reversal, hold in Phase I for continued monitoring from when last reversal dose was given for a minimum of 60 minutes or longer pending the nurse and/or physician discretion of patient condition before discharge to Phase II. Please call the Sedation Physician to re-evaluate and complete post-note for discharge to Phase II area. Do NOT discharge from procedure sedation or Phase 1 until post- sedation evaluation note is complete by procedure /sedation MD Sedation Discharge Instructions to be given to the patient at discharge to home.
[2021-04-12] MEDS ORDERED: ALBUTEROL 0.083% NEBU SOLN 3 ML VIAL NEB PRN (10:33)
[2021-04-12] MEDS ORDERED: PHARMACY GLYCEMIC MGMT CONSULT PRN (11:29)
[2021-04-12] MEDS: FLUTICASONE/VILANTEROL 200/25MCG 14 PUFFS/INHALER INH SCH (11:50)
[2021-04-12] MEDS ORDERED: INSULIN HUMAN REGULAR IV BOLUS 3 UNITS in SYRINGE 0 ML IV ONE (12:15)
[2021-04-12] MEDS ORDERED: GLUCOSE 10 TABS/TUBE PO PRN (12:15)
[2021-04-12] MEDS ORDERED: GLUCAGON FOR INJ 1 MG VIAL IM PRN (12:15)
[2021-04-12] MEDS ORDERED: DEXTROSE 50% 50 ML SYRINGE IV PRN (12:15)
[2021-04-12] MEDS ORDERED: CARBOHYDRATES FOR HYPOGLYCEMIA PO PRN (12:15)
[2021-04-12] MEDS ORDERED: GLUCOSE 40% GEL 15 GM TUBE PO PRN (12:15)
[2021-04-12] MEDS ORDERED: INSULIN REGULAR 250 UNITS in SODIUM CHLORIDE 0.9% 247.5 ML IV SCH (12:15)
--- NOTE | 2021-04-12 12:47 | Pharmacy Report ---
Pharmacy Glycemic Short Note 2 - Date of Service April 12, 2021 - Glycemic Short BSG Results (Last 24 hours): 04/12/21 11:56 POC Glucose 400 H* OUTPATIENT ANTIDIABETIC REGIMEN: * metformin 500 bid, U-500 - 75 units with breakfast and lunch, 65 units with supper ASSESSMENT: * 75 year old s/p pacer placement. Pharmacy consulted to help with glycemic assistance as patient on very high amounts of insulin at home. Postop BSG 400 mg/dL. Spoke with patient and her last insulin dose was yesterday PM. She follows with CLIFFORD dejesus and also reports her PCP makes insulin adjustments. * Feel that best plan of care is to utilize insulin drip to get blood sugars better under control. Provider aware and ordered stat K level. * Will plan to transition off drip tomorrow AM PLAN FOR INPATIENT GLYCEMIC CONTROL: * Plan for insulin drip - severe stress / 110-180 goal range * Basal insulin * Will reevaluate tomorrow AM PLAN FOR DISCHARGE: * tbd
[2021-04-12] MEDS: oxyCODONE HCL IR 5 MG TAB (IMMEDIATE RELEASE) PO PRN ×2 (13:06→19:54)
[2021-04-12] MEDS: ALPRAZolam 0.25 MG TABLET PO PRN ×3 (13:06→21:31)
[2021-04-12] MEDS: INSULIN ASPART 100 UNITS/ML 3 ML PEN SC SCH ×3 (13:07→20:40)
[2021-04-12] MEDS ORDERED: POTASSIUM CHLORIDE CRTAB 20 MEQ TABCR PO STA (13:35)
[2021-04-12] MEDS: POTASSIUM CHLORIDE / WTR 10 MEQ/100 ML PLCT IV SCH ×2 (14:18→15:29)
[2021-04-12] MEDS: ceFAZolin 2000MG 2,000 MG/15 ML SYR IV SCH (17:30)
[2021-04-12] MEDS: metFORMIN HCL 500 MG TAB PO SCH (17:31)
[2021-04-12 17:45] LABS: Potassium 4.2 mmol/L (3.5-5.1)
[2021-04-13] MEDS: ceFAZolin 2000MG 2,000 MG/15 ML SYR IV SCH ×2 (00:45→09:40)
[2021-04-13] MEDS: oxyCODONE HCL IR 5 MG TAB (IMMEDIATE RELEASE) PO PRN ×2 (00:56→07:45)
[2021-04-13 07:44] LABS: BUN Creatinine Ratio 18.8 (10-20); Blood Urea Nitrogen 34 mg/dl (7-18); Calcium 9.5 mg/dl (8.5-10.1); Carbon Dioxide 26 mmol/L (21-32); Chloride 97 mmol/L (98-107); Est GFR (African American) 31.6 ml/min; Est GFR (Non-African American) 27.2 ml/min; Glucose 136 mg/dl (70-99); Potassium 3.8 mmol/L (3.5-5.1); Sodium 131 mmol/L (136-145)
[2021-04-13] MEDS: metFORMIN HCL 500 MG TAB PO SCH (07:45)
[2021-04-13] MEDS: FLUTICASONE/VILANTEROL 200/25MCG 14 PUFFS/INHALER INH SCH (07:47)
[2021-04-13] MEDS: INSULIN ASPART 100 UNITS/ML 3 ML PEN SC SCH (07:57)
[2021-04-13] MEDS ORDERED: HumuLIN-R U-500 35 UNITS in SYRINGE 0 ML SC ONE ×2 (08:30→18:00)
[2021-04-13] MEDS ORDERED: SPIRONOLACTONE 25 MG TAB PO SCH (09:00)
[2021-04-13] MEDS ORDERED: CHOLECALCIFEROL 1,000 UNITS 25 MCG TAB PO SCH (09:00)
[2021-04-13] MEDS ORDERED: ASPIRIN 81 MG ECTAB PO SCH (09:00)
[2021-04-13] MEDS ORDERED: dilTIAZem HCL 180 MG CAPCR PO SCH (09:00)
[2021-04-13] MEDS ORDERED: buPROPion XL 150 MG TABCR PO SCH (09:00)
[2021-04-13] MEDS ORDERED: CYANOCOBALAMIN 500 MCG TABLET (VITAMIN B-12) PO SCH (09:00)
[2021-04-13] MEDS ORDERED: DULoxetine HCL 30 MG CAP PO SCH (09:00)
[2021-04-13] MEDS ORDERED: ATORVASTATIN 40 MG TAB PO SCH (09:00)
[2021-04-13] MEDS ORDERED: CLOPIDOGREL BISULFATE 75 MG TAB PO SCH (09:00)
[2021-04-13] MEDS ORDERED: hydroCHLOROthiazide 25 MG TAB PO SCH (09:00)
[2021-04-13] MEDS ORDERED: PANTOprazole 40 MG TAB PO SCH (09:00)
[2021-04-13] MEDS: ALPRAZolam 0.25 MG TABLET PO PRN ×2 (09:45→15:20)
--- NOTE | 2021-04-13 10:22 | XRay Report ---
XR chest 2V PA/lateral HISTORY: 75 years-old Female EXACT TIME ORDERED Evaluate for pneumothorax and l status post placemen t of a left subclavian pacer COMPARISON: Acute abdominal series radiographs 04/25/2020 TECHNIQUE: PA and lateral views of the chest FINDINGS: Cardiomediastinal and hilar silhouettes are within normal limits. Dual lead left subclavian pacer has been placed. The leads appear intact. No pneumothorax, pleural effusion, airspace consolidation or o vert pulmonary edema. Degenerative changes of the shoulders and spine. Cervical spinal fusion hardwar e. Surgical clips of the upper abdomen. Midthoracic compression deformity with kyphoplasty. Displaced and comminuted subacute to chronic appearing left proximal humeral fracture. IMPRESSION: Status post placement of a dual lead left subclavian pacer. No postprocedural pneumothora x. ACT 112: Negative or not required by law. The above report was generated using voice recognition software. It may contain grammatical, syntax o r spelling errors. Electronically signed by: Wesley Weems M.D. 04/13/2021 10:21 AM
[2021-04-13] MEDS ORDERED: SODIUM CHLORIDE 0.9% 1000ML 500 ML IV ONE (14:03)
--- NOTE | 2021-04-13 14:32 | Pharmacy Report ---
Pharmacy Glycemic Short Note 2 - Date of Service April 13, 2021 - Glycemic Short BSG Results (Last 24 hours): 04/12/21 04/12/21 04/12/21 15:04 16:28 18:36 Glucose 117 H POC Glucose 115 H 244 H 04/12/21 04/12/21 04/12/21 19:33 20:29 21:32 Glucose POC Glucose 231 H 204 H 197 H 04/12/21 04/13/21 04/13/21 23:28 00:33 02:26 Glucose POC Glucose 147 H 131 H 144 H 04/13/21 04/13/21 04/13/21 04:42 06:39 06:57 Glucose 136 H POC Glucose 160 H 144 H 04/13/21 04/13/21 04/13/21 07:31 08:49 09:54 Glucose POC Glucose 147 H 255 H 148 H 04/13/21 04/13/21 10:57 13:47 Glucose POC Glucose 157 H 137 H OUTPATIENT ANTIDIABETIC REGIMEN: * metformin 500 bid, U-500 - 75 units with breakfast and lunch, 65 units with supper ASSESSMENT: 04/13 * Patient transitioned off insulin drip this AM - started half of outpatient U- 500 dosing TID * Recheck BSG this afternoon 137 mg/dL - plan to add correctional insulin on in case BSGs rise >150 04/12 * 75 year old s/p pacer placement. Pharmacy consulted to help with glycemic assistance as patient on very high amounts of insulin at home. Postop BSG 400 mg/dL. Spoke with patient and her last insulin dose was yesterday PM. She follows with CLIFFORD deshpande and also reports her PCP makes insulin adjustments. * Feel that best plan of care is to utilize insulin drip to get blood sugars better under control. Provider aware and ordered stat K level. * Will plan to transition off drip tomorrow AM PLAN FOR INPATIENT GLYCEMIC CONTROL: * Basal insulin * U-500 resumed today - started at ~50% of home dosing TID * Added novolog for correctional insulin if needed PLAN FOR DISCHARGE: * Would recommend continued follow up with [facility]IFF[facility] Deshpande. Would defer insulin adjustments to them.
[2021-04-13] MEDS ORDERED: INSULIN ASPART 100 UNITS/ML 3 ML PEN SC SCH (16:30)
[2021-04-13 16:36] LABS: BUN Creatinine Ratio 20.2 (10-20); Blood Urea Nitrogen 29 mg/dl (7-18); Calcium 9.4 mg/dl (8.5-10.1); Carbon Dioxide 22 mmol/L (21-32); Chloride 99 mmol/L (98-107); Est GFR (African American) 40.7 ml/min; Est GFR (Non-African American) 35.1 ml/min; Glucose 55 mg/dl (70-99); Potassium 3.5 mmol/L (3.5-5.1); Sodium 132 mmol/L (136-145)
--- NOTE | 2021-04-13 17:08 | Discharge Summary ---
Date of Service April 13, 2021 Principal Diagnosis q Discharge Exam On the day discharge the device implant site appeared to be healing well. No significant ecchymosis. No hematoma or erythema. Discharge Data Allergies Allergy/AdvReac Type Severity Reaction Status Date / Time levofloxacin Allergy Intermediate ITCHY HIVES Verified 03/30/21 09:56 ofloxacin Allergy Intermediate RASH Verified 03/30/21 09:56 pioglitazone Allergy Intermediate ITCHING Verified 03/30/21 09:56 Sulfa (Sulfonamide Allergy Intermediate itchy Verified 03/30/21 09:56 Antibiotics) Procedures Performed Operation Date: 04/12/21 09:00 Actual Procedures p Pacer with A/V Leads (Dual) - Justino Mcclelland MD s Remove Cardiac Event Recorder - Justino Mcclelland MD Ordered Studies 04/12/21 07:00 EP Lab Images for PACS ONCE Hospital Course (1) 2nd degree AV block: On the day of admission the patient underwent placement of a dual- chamber permanent pacemaker. ProZyme. The procedure itself was uncomplicated. The following morning a device interrogation revealed normal function on both leads. Chest x-ray demonstrated stable lead position without pneumothorax. She also underwent removal of her previously implanted loop recorder. At the time of discharge the incisions appear to be healing well without evidence of bleeding, hematoma or infection. (2) Diabetes mellitus, type 2: On the day of admission the patient was noted to have significant hyperglycemia. Initial blood sugar was 400. pharmacy was consulted and the patient was placed on an insulin infusion. On the day of discharge her infusion was discontinued she was administered her usual insulin regimen. At the time of discharge her blood sugar was normal and she was feeling well. She is known to have an appointment with her lathe spotter in a few days for discussion about her insulin dosing. (3) Renal insufficiency: on the morning of discharge the patient was noted to have a significant decline in her renal function based primarily on elevated creatinine. The chronicity of this elevation was unclear as the prior levels determine several weeks ago. It seems she had an element of of modest diuresis and may have been volume depleted. Normal saline was infused with improvement but not normalization of her renal function. However, she was felt to be stable for discharge with repeat evaluation scheduled in a couple of days. Total Time Total Time Spent Total Time Spent (In Minutes): 60 Total Time Includes: Examination of the Patient, Discharge Planning, Medication Reconciliation and Communication With Other Providers Discharge Plan Discharge Items Patient Disposition: Home - Self-Care Reason For Visit: Second Degree Atrioventricular Block Discharge Diagnosis: syncope Activity: Per Instructions section Activity Comment: no lifting left arm above shoulder or behind neck for 6 weeks Lifting: No more than 10 pounds Bathing: Keep incision dry Bathing Comment: keep wound dry and Steri-Strips intact until follow-up Driving/Machine Use: Resume 1 day after discharge 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 Nonfasting. Pending Studies at Discharge: No Stand-Alone Forms: My [employer], Smoking Cessation Medications and DC Order Prescriptions: Continued levalbuterol HCl 0.63 mg/3 mL solution for nebulization 0.63 mg INH TID PRN (Reason: shortness of breath or wheezing) Qty: 360 RF: 5 (DME) pen needle, diabetic [BD Ultra-Fine Mini Pen Needle] 31 gauge x 3/16" needle See Dose Instructions .ROUTE .MEDSUPPLY Qty: 300 RF: 1 atorvastatin 80 mg tablet See Rx Instructions .ROUTE .COMPLEX Qty: 90 RF: 3 spironolactone 50 mg tablet 50 mg PO QAM Qty: 90 RF: 3 (DME) OneTouch Verio test strips Strip See Dose Instructions .ROUTE .MEDSUPPLY Qty: 400 RF: 3 hydrochlorothiazide 25 mg tablet 25 mg PO QAM Qty: 90 RF: 3 fluticasone propion-salmeterol [Advair Diskus] 500-50 mcg/dose blister with device 1 inh INH BID Qty: 60 RF: 0 diltiazem HCl 420 mg capsule,extended release 24 hr See Rx Instructions .ROUTE .COMPLEX Qty: 90 RF: 3 albuterol sulfate [Ventolin HFA] 90 mcg/actuation HFA aerosol inhaler 2 puff INH Q4H PRN (Reason: Shortness Of Breath Or Wheezing) Qty: 54 RF: 1 dexlansoprazole 60 mg capsule,biphase delayed releas 60 mg PO QAM Qty: 90 RF: 3 Motegrity 2 mg tablet 2 mg PO QAM Qty: 90 RF: 3 mometasone 50 mcg/actuation spray,non-aerosol 2 sprays intranasal BID PRN (Reason: Allergic Symptoms) Qty: 1 RF: 0 bupropion HCl 150 mg tablet extended release 24 hr 150 mg PO QAM Qty: 30 RF: 0 multivitamin [Multiple Vitamins] tablet 1 tab PO QAM RF: 0 cholecalciferol (vitamin D3) 1,000 unit (25 mcg) tablet 1,000 units PO QAM RF: 0 (DME) lancets [OneTouch Delica Lancets] 33 gauge misc See Dose Instructions .ROUTE .MEDSUPPLY Qty: 100 RF: 0 lorazepam 0.5 mg tablet 0.5 mg PO .COMPLEX PRN (Reason: anxiety) 1 Days Qty: 2 RF: 0 cyanocobalamin (vitamin B-12) 1,000 mcg tablet 1,000 mcg PO QAM RF: 0 ondansetron 4 mg tablet,disintegrating 4 mg PO Q8H PRN (Reason: Nausea And Vomiting) Qty: 120 RF: 3 nystatin 100,000 unit/mL suspension 6 ml PO QID 10 Days Qty: 240 RF: 0 oxycodone [Roxicodone] 5 mg tablet 5 mg PO Q8H PRN (Reason: pain) Qty: 90 RF: 0 metformin 500 mg tablet extended release 24 hr 500 mg PO BID Qty: 180 RF: 1 Walking Cane Misc 1 ea .ROUTE .COMPLEX Qty: 1 RF: 0 alprazolam 0.25 mg tablet 0.25 mg PO UD PRN (Reason: anxiety) Qty: 90 RF: 1 jojgoisupg-meotejv-gzdnoufj 50-325-40 mg capsule 1 cap PO Q4H PRN (Reason: pain) Qty: 30 RF: 0 Humulin R U-500 (Conc) Kwikpen 500 unit/mL (3 mL) insulin pen 310 unit SQ DAILY 90 Days Qty: 60 RF: 3 valacyclovir 500 mg tablet 500 mg PO UD PRN (Reason: cold sores) RF: 0 gabapentin 100 mg Capsule 100 mg PO TID RF: 0 duloxetine 30 mg Capsule,Delayed Release(Dr/Ec) 30 mg PO QAM RF: 0 polyethylene glycol 3350 [Miralax] 17 gram/dose Powder 17 g PO HS RF: 0 clopidogrel 75 mg tablet 75 mg PO QAM RF: 0 montelukast 10 mg tablet 10 mg PO QPM RF: 0 Spiriva Respimat 2.5 mcg/actuation mist 2 puffs INH QAM RF: 0 metoprolol succinate 200 mg tablet extended release 24 hr 200 mg PO QAM RF: 0 aspirin 81 mg tablet,delayed release (DR/EC) 81 mg PO DAILY Qty: 21 RF: 0 Discharge Orders: Discharge Order (Routine); Ordered 04/13/21 Ordered By: Justino Mcclelland Admission Data Admit Date/Time: 04/12/21 09:21 Attending Provider: Justino Mcclelland Admit Provider: Justino Mcclelland Primary Care Provider: Abdiel Barboza Other Interventions: Discharge Summary Assessment (RN) Last Done: 04/13/21 17:01 Coding Level of Care Code D/C Day Management >30 mins Diagnoses 2nd degree AV block I44.1 Diabetes mellitus, type 2 E11.9 Renal insufficiency N28.9 Time Spent (min) 60
== END 2021-04-13 17:30 | disposition home or self-care (01) ==
LOC: EP 07:53 → 2S 07:53

== ENCOUNTER 2022-05-07 06:05 | Inpatient (IN) ==
--- NOTE | 2022-04-15 14:30 | PAT Medication Instructions ---
Medication Instructions Date of Service April 15, 2022 Home Medications Medication Instructions Recorded levalbuterol HCl 0.63 mg/3 mL 0.63 mg INH TID PRN #360 ml 12/23/19 solution for nebulization bupropion HCl 150 mg 24 hr tablet, 150 mg PO QAM #90 tab 06/04/21 extended release duloxetine 30 mg capsule,delayed 30 mg PO QAM #90 cap 06/04/21 release pen needle, diabetic 31 gauge x #300 ea 08/21/2102/13" (BD Ultra-Fine Mini Pen Needle) prucalopride 2 mg tablet 2 mg PO QAM #90 tab 09/18/21 (Motegrity) albuterol sulfate 90 mcg/actuation 2 puff INH Q4H PRN #54 gm 10/01/21 aerosol inhaler (Ventolin HFA) atorvastatin 80 mg tablet 80 mg PO QPM #90 tab 10/08/21 spironolactone 50 mg tablet 50 mg PO QAM #90 tab 10/08/21 metoprolol succinate 200 mg 200 mg PO QAM #90 tab 11/07/21 tablet,extended release 24 hr dexlansoprazole 60 mg 60 mg PO QAM #90 cap 11/19/21 capsule,biphase delayed release ondansetron 4 mg disintegrating 4 mg PO Q8H PRN #120 tab 11/19/21 tablet metformin 500 mg tablet,extended 500 mg PO BID #180 tab 11/26/21 release 24 hr clopidogrel 75 mg tablet 75 mg PO QAM #90 tab 12/04/21 inhaler,assist devices,access #1 ea 12/19/21 OneTouch Ultra Control (blood #1 ea NS 01/16/22 glucose control, normal) fluticasone propionate 230 2 inh INHALATION BID 90 Days #3 01/21/22 mcg-salmeterol 21 mcg/actuation inhaler HFA inhaler (Advair HFA) ipratropium bromide 21 mcg (0.03 2 spray INTRANASAL BID #30 ml 01/21/22 %) nasal spray diltiazem HCl 420 mg capsule,24 420 mg PO QAM #90 cap 01/24/22 hr,extended release sucralfate 100 mg/mL oral 10 ml PO BID #420 ml 02/27/22 suspension alprazolam 0.25 mg tablet 0.25 mg PO BID PRN #60 tab 03/11/22 cyanocobalamin (vitamin B-12) 1,000 mcg tablet 1,000 mcg PO QAM multivitamin (Multiple Vitamins) 1 tab PO QAM levalbuterol HCl 0.63 mg/3 mL solution for nebulization 0.63 mg INH TID PRN polyethylene glycol 3350 17 gram/dose oral powder (Miralax) 17 g PO HS valacyclovir 500 mg tablet 500 mg PO UD PRN tiotropium bromide 2.5 mcg/actuation mist for inhalation (Spiriva Respimat) 2 puffs INH QAM bupropion HCl 150 mg 24 hr tablet, extended release 150 mg PO QAM duloxetine 30 mg capsule,delayed release 30 mg PO QAM prucalopride 2 mg tablet (Motegrity) 2 mg PO QAM albuterol sulfate 90 mcg/actuation aerosol inhaler (Ventolin HFA) 2 puff INH Q4H PRN atorvastatin 80 mg tablet 80 mg PO QPM spironolactone 50 mg tablet 50 mg PO QAM metoprolol succinate 200 mg tablet,extended release 24 hr 200 mg PO QAM dexlansoprazole 60 mg capsule,biphase delayed release 60 mg PO QAM ondansetron 4 mg disintegrating tablet 4 mg PO Q8H PRN metformin 500 mg tablet,extended release 24 hr 500 mg PO BID clopidogrel 75 mg tablet 75 mg PO QAM cyclobenzaprine 5 mg tablet 5 mg PO UD PRN doxepin 75 mg capsule 75 mg PO QAM losartan 25 mg tablet 25 mg PO QAM cholecalciferol (vitamin D3) 25 mcg (1,000 unit) tablet 2,000 unit PO QAM fluticasone propionate 230 mcg-salmeterol 21 mcg/actuation HFA inhaler (Advair HFA) 2 inh INHALATION BID ipratropium bromide 21 mcg (0.03 %) nasal spray 2 spray INTRANASAL BID diltiazem HCl 420 mg capsule,24 hr,extended release 420 mg PO QAM insulin regular hum U-500 conc (Humulin R U-500 (Conc) Insulin Kwikpen) 65 - 80 unit SQ chlorpheniramine maleate 4 mg tablet 4 mg PO UD PRN sucralfate 100 mg/mL oral suspension 10 ml PO BID alprazolam 0.25 mg tablet 0.25 mg PO BID PRN codeine 10 mg-guaifenesin 100 mg/5 mL oral liquid 5 ml PO UD PRN mometasone 50 mcg/actuation nasal spray 2 spray INTRANASAL UD PRN ASK your prescriber and surgeon doxepin 75 mg capsule 75 mg PO QAM clopidogrel 75 mg tablet 75 mg PO QAM DO NOT take the morning of surgery cyanocobalamin (vitamin B-12) 1,000 mcg tablet 1,000 mcg PO QAM multivitamin (Multiple Vitamins) 1 tab PO QAM prucalopride 2 mg tablet (Motegrity) 2 mg PO QAM spironolactone 50 mg tablet 50 mg PO QAM metformin 500 mg tablet,extended release 24 hr 500 mg PO BID cyclobenzaprine 5 mg tablet 5 mg PO UD PRN losartan 25 mg tablet 25 mg PO QAM cholecalciferol (vitamin D3) 25 mcg (1,000 unit) tablet 2,000 unit PO QAM insulin regular hum U-500 conc (Humulin R U-500 (Conc) Insulin Kwikpen) 65 - 80 unit SQ chlorpheniramine maleate 4 mg tablet 4 mg PO UD PRN sucralfate 100 mg/mL oral suspension 10 ml PO BID codeine 10 mg-guaifenesin 100 mg/5 mL oral liquid 5 ml PO UD PRN Take morning of surgery With a small sip of water, OTHERWISE NOTHING TO EAT OR DRINK AFTER MIDNIGHT: levalbuterol HCl 0.63 mg/3 mL solution for nebulization 0.63 mg INH TID PRN (if needed) valacyclovir 500 mg tablet 500 mg PO UD PRN (if needed) tiotropium bromide 2.5 mcg/actuation mist for inhalation (Spiriva Respimat) 2 puffs INH QAM bupropion HCl 150 mg 24 hr tablet, extended release 150 mg PO QAM duloxetine 30 mg capsule,delayed release 30 mg PO QAM albuterol sulfate 90 mcg/actuation aerosol inhaler (Ventolin HFA) 2 puff INH Q4H PRN (if needed) metoprolol succinate 200 mg tablet,extended release 24 hr 200 mg PO QAM dexlansoprazole 60 mg capsule,biphase delayed release 60 mg PO QAM ondansetron 4 mg disintegrating tablet 4 mg PO Q8H PRN (if needed) fluticasone propionate 230 mcg-salmeterol 21 mcg/actuation HFA inhaler (Advair HFA) 2 inh INHALATION BID ipratropium bromide 21 mcg (0.03 %) nasal spray 2 spray INTRANASAL BID diltiazem HCl 420 mg capsule,24 hr,extended release 420 mg PO QAM alprazolam 0.25 mg tablet 0.25 mg PO BID PRN (if needed) mometasone 50 mcg/actuation nasal spray 2 spray INTRANASAL UD PRN (if needed) Take evening before surgery levalbuterol HCl 0.63 mg/3 mL solution for nebulization 0.63 mg INH TID PRN (if needed) polyethylene glycol 3350 17 gram/dose oral powder (Miralax) 17 g PO HS valacyclovir 500 mg tablet 500 mg PO UD PRN (if needed) albuterol sulfate 90 mcg/actuation aerosol inhaler (Ventolin HFA) 2 puff INH Q4H PRN (if needed) atorvastatin 80 mg tablet 80 mg PO QPM ondansetron 4 mg disintegrating tablet 4 mg PO Q8H PRN (if needed) metformin 500 mg tablet,extended release 24 hr 500 mg PO BID cyclobenzaprine 5 mg tablet 5 mg PO UD PRN (if needed) fluticasone propionate 230 mcg-salmeterol 21 mcg/actuation HFA inhaler (Advair HFA) 2 inh INHALATION BID ipratropium bromide 21 mcg (0.03 %) nasal spray 2 spray INTRANASAL BID insulin regular hum U-500 conc (Humulin R U-500 (Conc) Insulin Kwikpen) 65 - 80 unit SQ chlorpheniramine maleate 4 mg tablet 4 mg PO UD PRN (if needed) sucralfate 100 mg/mL oral suspension 10 ml PO BID alprazolam 0.25 mg tablet 0.25 mg PO BID PRN (if needed) codeine 10 mg-guaifenesin 100 mg/5 mL oral liquid 5 ml PO UD PRN (if needed) mometasone 50 mcg/actuation nasal spray 2 spray INTRANASAL UD PRN (if needed) Other Notes If you have any questions please call us at [phone] or [phone] or [phone] or [phone]
--- NOTE | 2022-04-17 08:28 | Anesthesiology Consultation ---
Date of Service April 17, 2022 Assessment & Plan (1) Encounter for pre-operative examination: Chart Review Chart Review: Pending: Refer to Additional Notes / Consult section (surgeon ordered PCP clearance (with response to hyponatremia and uncontrolled DM), cardio clearance, updated pacer check if availabe and preop Covid testing results ) and Patient seen in Pre Admission Testing - Awaiting PCP clearance (04/22/22) (will write note to PCP regarding hyponatremia and uncontrolled DM), cardio clearance (04/23/22) with most recent pacer check scheduled 04/23 (per patient) On steroids for about six weeks - took last dose 04/16/22 - Check BSG AM DOS Per PAT appt on 04/17/22, patient denies any recent travel or large group activities. No known Covid positive exposures or Covid related symptoms. No known Covid infection in the past 90 days. Pt is vaccinated for Covid. Preop Covid testing scheduled 05/03/22 = will await results. Educated on importance of self quarantining, social distancing and wearing mask in public for the patient one week prior to surgery and after Covid testing done Last seen by vascular 05/28/21= patient seen for 2-year follow-up for carotidsh ad stroke in Decemberpacemaker placed 6 weeks ago. Patient with history of carotid endarterectomy on right side in 2013. Patient's recent stroke was not related to carotid disease. Had bradycardia which necessitated pacemaker. Patient feeling better since pacemaker insertion. Carotid stenosisat this point she is doing well from her carotid endarterectomy. We will be seeing her again in 2 years for follow-up. Teaching & Discussion Pre-Anesthesia Teaching/Discussion Notes: Instructed NPO after midnight before surgery,except medications with 15 cc of water. Medication instructions provided according to the PAT guidelines. History Surgery Operation Date: 05/07/22 07:45 Proposed Procedures p L2-L4 Decompression and Fusion, L4-L5 Hardware Removal, Spinal Cord Monitoring - Cornelius Hardy DO Height/Weight Height: 5 ft 3 in Weight: 83.8 kg Allergies Allergy/AdvReac Type Severity Reaction Status Date / Time levofloxacin Allergy Unknown ITCHY HIVES Verified 04/15/22 13:26 ofloxacin Allergy Unknown RASH Verified 04/15/22 13:26 pioglitazone Allergy Unknown ITCHING Verified 04/15/22 13:26 Sulfa (Sulfonamide Allergy Unknown itchy Verified 04/15/22 13:26 Antibiotics) KNEE GEL SHOT Allergy Unknown SWELLING Uncoded 04/15/22 13:26 AND BRUISING Medications Home Medications Medication Instructions Recorded Confirmed Last Taken cyanocobalamin (vitamin B-12) 1,000 mcg PO QAM tab 05/13/19 04/15/22 12/08/20 07:00 1,000 mcg tablet multivitamin (Multiple Vitamins) 1 tab PO QAM 07/01/19 04/15/22 12/08/20 07:00 levalbuterol HCl 0.63 mg/3 mL 0.63 mg INH TID PRN #360 ml 12/23/19 04/15/22 12/07/20 solution for nebulization polyethylene glycol 3350 17 17 g PO HS 05/19/20 04/15/22 12/07/20 gram/dose oral powder (Miralax) valacyclovir 500 mg tablet 500 mg PO UD PRN tab 06/13/20 04/15/22 07/28/20 08:00 tiotropium bromide 2.5 2 puffs INH QAM 07/28/20 04/15/22 12/08/20 07:00 mcg/actuation mist for inhalation (Spiriva Respimat) bupropion HCl 150 mg 24 hr tablet, 150 mg PO QAM #90 tab 06/04/21 04/15/22 Unknown extended release duloxetine 30 mg capsule,delayed 30 mg PO QAM #90 cap 06/04/21 04/15/22 Unknown release lancets 33 gauge (OneTouch Delica #100 ea 08/21/21 04/09/22 Unknown Lancets) pen needle, diabetic 31 gauge x #300 ea 08/21/21 04/09/22 Unknown 16" (BD Ultra-Fine Mini Pen Needle) prucalopride 2 mg tablet 2 mg PO QAM #90 tab 09/18/21 04/15/22 Unknown (Motegrity) albuterol sulfate 90 mcg/actuation 2 puff INH Q4H PRN #54 gm 10/01/21 04/15/22 Unknown aerosol inhaler (Ventolin HFA) atorvastatin 80 mg tablet 80 mg PO QPM #90 tab 10/08/21 04/15/22 Unknown spironolactone 50 mg tablet 50 mg PO QAM #90 tab 10/08/21 04/15/22 Unknown metoprolol succinate 200 mg 200 mg PO QAM #90 tab 11/07/21 04/15/22 Unknown tablet,extended release 24 hr dexlansoprazole 60 mg 60 mg PO QAM #90 cap 11/19/21 04/15/22 Unknown capsule,biphase delayed release ondansetron 4 mg disintegrating 4 mg PO Q8H PRN #120 tab 11/19/21 04/15/22 Unknown tablet blood sugar diagnostic (OneTouch 11/20/21 04/09/22 Unknown Ultra Test) metformin 500 mg tablet,extended 500 mg PO BID #180 tab 11/26/21 04/15/22 Unknown release 24 hr clopidogrel 75 mg tablet 75 mg PO QAM #90 tab 12/04/21 04/15/22 Unknown cyclobenzaprine 5 mg tablet 5 mg PO UD PRN 12/07/21 04/15/22 Unknown doxepin 75 mg capsule 75 mg PO QAM 12/07/21 04/15/22 Unknown losartan 25 mg tablet 25 mg PO QAM 12/07/21 04/15/22 Unknown cholecalciferol (vitamin D3) 25 2,000 unit PO QAM tab 12/12/21 04/15/22 Unknown mcg (1,000 unit) tablet inhaler,assist devices,access #1 ea 12/19/21 04/09/22 Unknown OneTouch Ultra Control (blood #1 ea NS 01/16/22 04/09/22 Unknown glucose control, normal) fluticasone propionate 230 2 inh INHALATION BID 90 Days #3 01/21/22 04/15/22 Unknown mcg-salmeterol 21 mcg/actuation inhaler HFA inhaler (Advair HFA) ipratropium bromide 21 mcg (0.03 2 spray INTRANASAL BID #30 ml 01/21/22 04/15/22 Unknown %) nasal spray diltiazem HCl 420 mg capsule,24 420 mg PO QAM #90 cap 01/24/22 04/15/22 Unknown hr,extended release insulin regular hum U-500 conc 65 - 80 unit SQ UD box 02/18/22 04/15/22 Unknown (Humulin R U-500 (Conc) Insulin Kwikpen) chlorpheniramine maleate 4 mg 4 mg PO UD PRN tab 02/19/22 04/15/22 Unknown tablet sucralfate 100 mg/mL oral 10 ml PO BID #420 ml 02/27/22 04/15/22 Unknown suspension alprazolam 0.25 mg tablet 0.25 mg PO BID PRN #60 tab 03/11/22 04/15/22 Unknown codeine 10 mg-guaifenesin 100 mg/5 5 ml PO UD PRN 04/15/22 04/15/22 Unknown mL oral liquid mometasone 50 mcg/actuation nasal 2 spray INTRANASAL UD PRN 04/15/22 04/15/22 Unknown spray Past Medical History Medical History (Updated 04/17/22 @ 14:36 by Vanita Haji PA-C) Anxiety Atrial premature complex F/U DR MITCH [place] Cancer HX BREAST 7 YR AGO, R mastectomy and lymph node excision, No chemo or XRT RUE limb restriction Carotid stenosis, asymptomatic S/p right CEA (2013) - follows with Dr. Kohli Chronic cough Nonproductive, ongoing evaluation/management. 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 Webber Depression Diabetic peripheral neuropathy Bilateral feet Difficult intravenous access Duodenal hemorrhage HX GI BLEED No recent issues Fatty liver Frequent falls D/t issues with back currently per pt, MOST RECENT FALL 7 WEEKS AGO - LEFT LEG BURSA SAC RUPTURE AND HURT RIGHT SHOULDER PER PT Gastroparesis Horners syndrome DROOPY EYES, BOTH - RIGHT IS WORSE AND GETS WORSE WITH FATIGUE Knee problem LEFT KNEE GEL SHOT INJECTION 5 WEEKS AGO, HAD SWELLING AND BRUISING AFTER - PT DISCUSSED WITH DR GREENWOOD AND WAS TOLD SHE WAS ALLERGIC TO IT AND NOT TO RECEIVE IN THE FUTURE - MILD BRUISING REMAINS Lumbar stenosis with neurogenic claudication Migraines Mixed hearing loss, bilateral Osteopenia Pacemaker 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 s/p Medtronic Kaplan XT DR KELLY Dual Chamber Pacemaker 04/12/21 LAST PACEMAKER CHECK 12/2021 Post-traumatic stress disorder Primary hypertension controlled per pt Syncope HX , RESOLVED WITH PACEMAKER PLACEMENT TIA (transient ischemic attack) 01/2018--reason for plavix, no deficits Type 2 diabetes mellitus Usually well controlled unless on steroids Exercise / Class Metabolic Activity II 4-5 Yardwork/Stairs/Walk up hill (one flight of stairs - no chest pain or SOB ) Past Family History Family History Son Crohn's disease Sister Ulcerative colitis Family history of diabetes mellitus Mother Family history of diabetes mellitus Brother Family history of diabetes mellitus Other No family history of adverse response to anesthesia No family history of bleeding disorder Past Surgical History Surgical History Abdominoplasty (05/12/13) History of anesthesia reaction difficulty waking with 1st back surgery @ [facility] [place]no issues since History of bilateral cataract extraction History of bilateral mastectomy h/o R breast CA-lymph node removal R side History of bilateral tubal ligation History of bladder suspension procedure History of breast reconstruction Bilateral, Dr. Barr, Allergsaul Style 410 implant, size unknown History of carotid endarterectomy right, 2013 History of carpal tunnel release of both wrists History of cholecystectomy History of colonoscopy with polypectomy History of esophagogastroduodenoscopy (EGD) History of fusion of cervical spine x3--"cant turn to the right" History of fusion of lumbar spine x4 History of oral surgery gum sx History of right breast biopsy malignant History of surgery on left wrist plate in place History of total hysterectomy with bilateral salpingo-oophorectomy (BSO) History of total right knee replacement (TKR) History of trigger finger x4--bilt hands Pacemaker Medtronic, placed 03/2021, follows with [facility] Past Anesthesia History No Hx of Anesthesia Complications (with exception 30 years ago- given too much (was slow to wake)) and No Family Hx of Anesthesia Complications History of PONV No Hx of PONV and No Hx of Motion Sickness Social History Smoking Status: Never smoker Do You Dip or Chew Tobacco: No Hx Alcohol Use: Yes Alcohol type: beer alcohol intake frequency: a few times a month Hx Substance Use: No substance use type: does not use Review of Systems Patient denies chest pain, shortness of breath, dyspnea on exertion, reflux, cough, wheezing, palpitations. No hx of seizures, MS, apnea/snoring. No hx of blood clots or blood transfusions Physical Exam Vital Signs VITALS BP 126/77 P 71 TEMP 97.9 SP02 98% RESP 16 Constitutional no acute distress ENMT Mouth: no TMJ clicking Thyromental Distance: < 3.5 Finger Breadths (3.0) Mallampati Class: II Permanent bridge right side teeth Top front teeth - all implants (permanent) Neck + limited neck extension Respiratory normal respiratory effort; no respiratory distress Auscultation: lungs clear to auscultation bilaterally; no wheezes Cardiovascular Rate/Rhythm: regular rate and regular rhythm Heart Sounds: no murmur Vessels: no carotid bruit Musculoskeletal Spine: + pain with cervical ROM Extremities: extremities normal to inspection Psychiatric Orientation: alert Lab Results Anesthesia Preop Results Results Anesthesia Widget: WBC 8.39 K/uL (4.8-10.8) 04/17/22 Hgb 13.8 g/dL (12.0-16.0) 04/17/22 Hct 39.5 % (37-47) 04/17/22 Plt 453 K/uL (130-400) H 04/17/22 Na 129 mmol/L (136-145) L 04/17/22 K 3.7 mmol/L (3.5-5.1) 04/17/22 Cl 95 mmol/L (98-107) L 04/17/22 CO2 22 mmol/L (21-32) 04/17/22 BUN 19 mg/dl (6-23) 04/17/22 Creat 0.80 mg/dl (0.6-1.2) 04/17/22 Glucose Level 197 mg/dl (70-99(Fasting)) H 04/17/22 PT 10.3 Seconds (9.0-12.0) 04/17/22 PTT 25.4 Seconds (21.0-31.0) 04/17/22 INR 1.0 (0.9-1.1) 04/17/22 TSH 2.122 uIu/ml (0.300-4.500) 03/11/22 HA1c 9.9 % (4.5-5.6) H 04/17/22 Urine Color Yellow 04/17/22 Urine Appearance Clear (Clear) 04/17/22 Urine pH 7.0 (4.5-7.5) 04/17/22 Urine Specific [place] 1.016 (1.000-1.030) 04/17/22 Urine Protein Negative (Negative) 04/17/22 Urine Glucose (UA) Negative (Negative) 04/17/22 Urine Ketones Negative (Negative) 04/17/22 Urine Blood Negative (Negative) 04/17/22 Urine Nitrite Negative (Negative) 04/17/22 Urine Bilirubin Negative (Negative) 04/17/22 Urine Urobilinogen Negative (Negative) 04/17/22 Urine Leukocyte Esterase Trace (Negative) H 04/17/22 Urine WBC (Auto) 1-5 /hpf (0-5) 04/17/22 Urine RBC (Auto) 0-4 /hpf (0-4) 04/17/22 Urine Hyaline Casts (Auto) 0 /lpf (0-5) 04/17/22 Urine Epithelial Cells (Auto) 0-5 /lpf (0-5) 04/17/22 Urine Bacteria (Auto) Negative (Negative) 04/17/22 Blood Type A Positive 04/17/22 Antibody Screen NEGATIVE 04/17/22 Testing Laboratory Results Chronic hyponatremia- will write note to PCP to address at PCP clearance appt Hyperglycemia- pt has been on steroids x 6 weeks- took last dose 04/17/22- surgeon's office informed- will also write note to PCP to address at PCP appt Electrocardiogram Date: 12/10/21 Findings: + NSR @ (89bpm ) Normal EKG per cardio Chest X-Ray Date: 04/17/22 Findings: + NAD FINDINGS: Lung volumes are normal. Lungs are clear. There is no pneumothorax or pleural effusion. Cardiac size is normal. Mediastinal contours are normal. There is no evidence for pulmonary edema. Dual-lead left subclavian pacemaker and a thoracic spine vertebroplasty are incidentally noted. There are postoperative findings within the cervical spine. IMPRESSION: No acute cardiopulmonary findings. Echocardiogram Date: 05/05/20 EF: 55-60% LV Function: normal RWMA: + none Other Findings: + LVH (mild/concentric ) Right ventricle is mildly dilated. Mild MR. RVSP is elevated at 30-[address] of chest 11/20/21= There is no acute chest disease or evidence for interstitial lung disease. Mild coronary artery calcification. Small hiatal hernia. Cerebrovascular duplex 05/28/2021 = patent right ICA without evidence of significant restenosis. No significant stenosis of the left internal carotid artery. Antegrade flow in both vertebral arteries. Normal flow in both subclavian arteries. Unable to obtain right brachial pressure due to prior mastectomy. Minimal, complex, calcified plaque in the bulb and right ICA. Minimal irregular surface, fibrofatty plaque in the bulb and left ICA. No significant change compared to prior exam dated 05/14/2019. Brain MRI 01/04/21= Motion degraded exam without acute intracranial abnormality. Moderate chronic microvascular ischemic disease. No abnormal enhancement.
[~2022-05-07 06:05] MED LIST changes: +ACETAMINOPHEN 500 MG TAB PO SCH; -BUPIVACAINE 0.25% 30 ML VIAL ONE; +CeleBREX 200 MG CAP PO SCH; +GABAPENTIN 300 MG CAP PO SCH; -LIDOCAINE HCL 1% 20 ML VIAL ONE; +LR 15ML/HR IV SCH; -VANCOMYCIN HCL 1000MG/20ML VIAL ONE; -WATER, STERILE FOR INJ 10 ML VIAL ONE; +ceFAZolin 2000MG 2,000 MG/15 ML SYR IV SCH
[2022-05-07] MEDS ORDERED: PROPOFOL IV EMULSION 10 MG/ML 20 ML VIAL IV ONE (06:57)
[2022-05-07] MEDS ORDERED: LIDOCAINE 2% 2 ML VIAL/AMP(20MG/ML) INFIL ONE (06:57)
[2022-05-07] MEDS ORDERED: ROCURONIUM BROMIDE 10 MG/ML 5 ML VIAL IV ONE (06:57)
[2022-05-07] MEDS ORDERED: MIDAZOLAM HCL 1 MG/ML 2ML VIAL ONE (06:58)
[2022-05-07] MEDS ORDERED: fentaNYL citrate 100 MCG/2 ML VIAL ONE (06:58)
[2022-05-07] MEDS ORDERED: BUPIVACAINE 0.5 % 5 MG/1 ML MPF 30ML VIAL ONE (07:15)
[2022-05-07] MEDS ORDERED: ceFAZolin 330 MG/ML 1 GM VIAL ONE (07:15)
[2022-05-07] MEDS ORDERED: EPINEPHrine INJ 1 MG/ML AMP ONE (07:15)
--- NOTE | 2022-05-07 07:32 | History & Physical Bridge Note ---
Date of Service May 07, 2022 History & Physical Bridge Note I have examined the patient, reviewed the History & Physical and in the interval since the performance of the History & Physical I have noted the following changes of clinical significance: no changes noted
--- NOTE | 2022-05-07 07:33 | History & Physical Report ---
Date of Service May 07, 2022 Assessment & Plan (1) Neurogenic claudication due to lumbar spinal stenosis: Plan: L2-L4 decompression and fusion, L4-L5 hardware removal History of Present Illness Chief Complaint: Back and bilateral leg pain Primary Care Provider: Millie Edwards MD This is a 76-year-old female well-known to me the presents with current persistent back and bilateral leg pain. After failing course of nonoperative care she is here for surgical invention. Allergies Allergy/AdvReac Type Severity Reaction Status Date / Time levofloxacin Allergy Unknown ITCHY HIVES Verified 05/07/22 06:30 ofloxacin Allergy Unknown RASH Verified 05/07/22 06:30 pioglitazone Allergy Unknown ITCHING Verified 05/07/22 06:30 Sulfa (Sulfonamide Allergy Unknown itchy Verified 05/07/22 06:30 Antibiotics) KNEE GEL SHOT Allergy Unknown SWELLING Uncoded 05/07/22 06:30 AND BRUISING Home Medications Medication Instructions Recorded Confirmed Type cyanocobalamin (vitamin B-12) 1,000 mcg PO QAM tab 05/13/19 05/07/22 History 1,000 mcg tablet multivitamin (Multiple Vitamins) 1 tab PO QAM 07/01/19 05/07/22 History levalbuterol HCl 0.63 mg/3 mL 0.63 mg INH TID PRN #360 ml 12/23/19 05/07/22 Rx solution for nebulization polyethylene glycol 3350 17 17 g PO HS 05/19/20 05/07/22 History gram/dose oral powder (Miralax) valacyclovir 500 mg tablet 500 mg PO UD PRN tab 06/13/20 05/07/22 History tiotropium bromide 2.5 2 puffs INH QAM 07/28/20 05/07/22 History mcg/actuation mist for inhalation (Spiriva Respimat) bupropion HCl 150 mg 24 hr tablet, 150 mg PO QAM #90 tab 06/04/21 05/07/22 Rx extended release duloxetine 30 mg capsule,delayed 30 mg PO QAM #90 cap 06/04/21 05/07/22 Rx release lancets 33 gauge (OneTouch Delica #100 ea 08/21/21 04/26/22 History Lancets) pen needle, diabetic 31 gauge x #300 ea 08/21/21 04/26/22 Rx 3/16" (BD Ultra-Fine Mini Pen Needle) prucalopride 2 mg tablet 2 mg PO QAM #90 tab 09/18/21 05/07/22 Rx (Motegrity) albuterol sulfate 90 mcg/actuation 2 puff INH Q4H PRN #54 gm 10/01/21 05/07/22 Rx aerosol inhaler (Ventolin HFA) atorvastatin 80 mg tablet 80 mg PO QPM #90 tab 10/08/21 05/07/22 Rx spironolactone 50 mg tablet 50 mg PO QAM #90 tab 10/08/21 05/07/22 Rx metoprolol succinate 200 mg 200 mg PO QAM #90 tab 11/07/21 05/07/22 Rx tablet,extended release 24 hr dexlansoprazole 60 mg 60 mg PO QAM #90 cap 11/19/21 05/07/22 Rx capsule,biphase delayed release ondansetron 4 mg disintegrating 4 mg PO Q8H PRN #120 tab 11/19/21 05/07/22 Rx tablet blood sugar diagnostic (OneTouch 11/20/21 04/26/22 History Ultra Test) metformin 500 mg tablet,extended 500 mg PO BID #180 tab 11/26/21 05/07/22 Rx release 24 hr clopidogrel 75 mg tablet 75 mg PO QAM #90 tab 12/04/21 05/07/22 Rx cyclobenzaprine 5 mg tablet 5 mg PO UD PRN 12/07/21 05/07/22 History doxepin 75 mg capsule 75 mg PO QAM 12/07/21 05/07/22 History losartan 25 mg tablet 25 mg PO QAM 12/07/21 05/07/22 History cholecalciferol (vitamin D3) 25 2,000 unit PO QAM tab 12/12/21 05/07/22 History mcg (1,000 unit) tablet inhaler,assist devices,access #1 ea 12/19/21 04/26/22 Rx OneTouch Ultra Control (blood #1 ea NS 01/16/22 04/26/22 Rx glucose control, normal) fluticasone propionate 230 2 inh INHALATION BID 90 Days #3 01/21/22 05/07/22 Rx mcg-salmeterol 21 mcg/actuation inhaler HFA inhaler (Advair HFA) ipratropium bromide 21 mcg (0.03 2 spray INTRANASAL BID #30 ml 01/21/22 05/07/22 Rx %) nasal spray diltiazem HCl 420 mg capsule,24 420 mg PO QAM #90 cap 01/24/22 05/07/22 Rx hr,extended release insulin regular hum U-500 conc 65 - 80 unit SQ UD box 02/18/22 05/07/22 History (Humulin R U-500 (Conc) Insulin Kwikpen) chlorpheniramine maleate 4 mg 4 mg PO UD PRN tab 02/19/22 05/07/22 History tablet sucralfate 100 mg/mL oral 10 ml PO BID #420 ml 02/27/22 05/07/22 Rx suspension codeine 10 mg-guaifenesin 100 mg/5 5 ml PO UD PRN 04/15/22 05/07/22 History mL oral liquid mometasone 50 mcg/actuation nasal 2 spray INTRANASAL UD PRN 04/15/22 05/07/22 History spray alprazolam 0.25 mg tablet 0.25 mg PO BID PRN #60 tab 04/19/22 05/07/22 Rx Past Med/Surg History Medical History Anxiety Atrial premature complex Cancer Carotid stenosis, asymptomatic Chronic cough Chronic obstructive pulmonary disease Complex regional pain syndrome type 1 affecting left shoulder CVA (cerebrovascular accident) Depression Diabetic peripheral neuropathy Difficult intravenous access Duodenal hemorrhage Fatty liver Frequent falls Gastroparesis Horners syndrome Knee problem Lumbar stenosis with neurogenic claudication Migraines Mixed hearing loss, bilateral Osteopenia Pacemaker Post-traumatic stress disorder Primary hypertension Syncope TIA (transient ischemic attack) Type 2 diabetes mellitus Surgical History Abdominoplasty (05/12/13) History of anesthesia reaction History of bilateral cataract extraction History of bilateral mastectomy History of bilateral tubal ligation History of bladder suspension procedure History of breast reconstruction History of carotid endarterectomy History of carpal tunnel release of both wrists History of cholecystectomy History of colonoscopy with polypectomy History of esophagogastroduodenoscopy (EGD) History of fusion of cervical spine History of fusion of lumbar spine History of oral surgery History of right breast biopsy History of surgery on left wrist History of total hysterectomy with bilateral salpingo-oophorectomy (BSO) History of total right knee replacement (TKR) History of trigger finger Pacemaker Family History Son Crohn's disease Sister Ulcerative colitis Family history of diabetes mellitus Mother Family history of diabetes mellitus Brother Family history of diabetes mellitus Other No family history of adverse response to anesthesia No family history of bleeding disorder Social History Smoking Status: Never smoker Second Hand Exposure: No; Do You Dip or Chew Tobacco: No; Hx Alcohol Use: Yes Alcohol type: beer Hx Substance Use: No Preferred Language: Welsh Communication Ability: Effective Radio Tower Technician Required: No Beliefs That Will Affect Care: None marital status: Current Living Situation: Spouse Current Living Situation Comment: LIVES WITH SPOUSE current occupational status: retired Other Information That Helps Us Care for You: Yes (INTERESTED IN IN HOME CARE AFTER SURGERY) Feels Safe at Home: Yes Safety Concerns: Feels Safe At This Time during the past year weight has: decreased > 10 lbs Dental Care, Regularly: Yes Physical Activity Frequency: Daily Seatbelt Use: always Sunscreen Use: Yes Assistive Devices: Cane Assistive Devices Comment: LIFE ALERT SYSTEM, READING GLASSES, IMPLANTS AND PERMANENT BRIDGE Physical Exam Physical Exam: Patient is alert and oriented Heart regular in rhythm Lungs clear Results & Data Results & Data ([facility]) Vital Signs (Past 12 Hours) Vital Signs Temp Pulse Resp BP Pulse Ox 05/07/22 06:48 36.7 C 81 18 161/79 H 96
[2022-05-07] MEDS ORDERED: ONDANSETRON INJ 2 MG/ML 2 ML VIAL IV PRN ×2 (07:35→12:42)
[2022-05-07] MEDS ORDERED: HYDROmorphone INJ 1 MG/ML SYRINGE IV PRN ×2 (07:35→12:42)
[2022-05-07] MEDS ORDERED: fentaNYL citrate 100 MCG/2 ML VIAL IV PRN (07:35)
[2022-05-07] MEDS ORDERED: ePHEDrine sulfate 50 MG/ML AMP IV PRN (07:35)
[2022-05-07] MEDS ORDERED: ATROPINE SULFATE 0.1 MG/ML 10ML SYR IV PRN (07:35)
[2022-05-07] MEDS ORDERED: BACITRACIN OINT 15 GM TUBE ONE (08:00)
[2022-05-07] MEDS ORDERED: HYDROmorphone INJ 2 MG/ML SYR/VIAL ONE (08:22)
[2022-05-07] MEDS ORDERED: ONDANSETRON INJ 2 MG/ML 2 ML VIAL ONE ×2 (08:32→10:18)
[2022-05-07] MEDS ORDERED: GENTAMICIN SULFATE 40 MG/ML 2 ML VIAL ONE (09:12)
[2022-05-07] MEDS ORDERED: VANCOMYCIN HCL 1000MG/20ML VIAL ONE (09:12)
[2022-05-07] MEDS ORDERED: ALBUMIN HUMAN 5% 12.5 GM/250 ML VIAL IV ONE (09:53)
[2022-05-07] MEDS ORDERED: FLOSEAL HEMOSTATIC MATRIX 10ML TOP ONE (10:09)
[2022-05-07] MEDS ORDERED: NEOSTIGMINE METHYLSULFATE 1 MG/ML 10ML VIAL ONE (10:18)
[2022-05-07] MEDS ORDERED: GLYCOPYRROLATE 0.2 MG/ML VIAL ONE (10:18)
--- NOTE | 2022-05-07 10:25 | Operative Report ---
Post Operative Report Pre & Post Diagnosis Operation Date: 05/07/22 07:45 Pre-Op Diagnosis: Spinal Stenosis, Lumbar Region with Neurogenic claudication Post-Op Diagnosis: Spinal Stenosis, Lumbar Region with Neurogenic claudication I identified the patient and participated in the time-out.: Yes Procedure Operation Date: 05/07/22 07:45 Actual Procedures #1 removal of posterior instrumentation L4-L5. #2 exploration of fusion L4-L5. #3 lumbar decompression bilateral medial facetectomies and foraminotomies L1-L2, L2-3 and L3-4. #4 posterior spinal fusion L2-L3 L3-L4. #5 placement posterior instrumentation L2-L5. #6 interbody fusion L2-L3 L3-L4. #7 placement of Spira 12 x 26 mm cage at L2-L3 and 13 x 26 at L3-L4. #8 placement locally harvested morselized autograft in the posterior gutters. #9 placement infuse collagen sponge, master graft in the posterior lateral gutters and I factor and interbody space. Surgeon Cornelius Hardy, DO Mandrel Puller Francia Emmanuel Estimated Blood Loss 350 Findings See Below The patient is 5 foot 3 weighing over 86 kg with a BMI in excess of 33. Patient's body habitus did contribute to significant technical difficulty required deeper retractors and longer instruments in order to perform procedure. This at least 50% increased operative time. Specimens None Indications This is a 76-year-old female well-known to me the presents above-mentioned diagnosis after failing course of nonoperative care she is here for surgical intervention. Description of Procedure Patient was met with identified informed consent obtained. Patient was then taken to the operative suite underwent ablation placed in a prone position the [place] table top Juan frame. All bony prominences well-padded eyes inspected to ensure no external pressure placed upon them. This point the lumbar spine was prepped and draped in the normal sterile fashion. Sharp dissection with the assistance of Bovie cautery was performed down to and exposing the lamina and transverse processes of L2-L3 and instrumentation L4-L5 bilaterally. I then proceeded to remove the hardware bilaterally explore the fusion mass noting it to be mature and intact. Then performed a complete laminectomy of L3 L2 and partial laminectomy of L1 including bilateral medial facetectomies and foraminotomies addressing severe spinal stenosis. Pedicle screws then placed in L2 L3-L4-L5 bilaterally with assistance of fluoroscopy and appropriate sized alex placed. By way of a transit foraminal approach and left complete discectomy of L3-L4 was performed endplates curetted to subcortical bleeding bone and a 13 x 26 mm spiral cage filled with I factor tapped in position. Then proceeded to L to L3 and again by way of a transforaminal approach and left complete discectomy performed endplates curetted to subcortically bone and a 12 x 26 mm spiral cage with I factor tapped the position. The rods were then compressed locked into final position bilaterally. The transverse processes of L2-L3-L4 burred to subcortical bleeding bone. Infuse collagen sponge master graft local autograft was then placed in the posterior lateral gutters. 15 round RIO drain inserted. The incision was then closed with 1 Vicryl the fascia 2-0 Vicryl subcutaneously and 4 Monocryl for final skin closure. Steri-Strip sterile dressings placed. Patient waken taken PACU stable condition. Please note spinal cord monitoring was utilized at the procedure no changes noted. Lastly Francia Emmanuel was present out the entire surgery and while the patient positioning complex portions of the surgery and final skin closure. I attest to the content of the Intraoperative Record and any orders documented therein. Any exceptions are noted below.
[2022-05-07] MEDS ORDERED: SURGICEL ABSORB HEMOSTAT 2IN X 14IN TOP ONE (10:29)
--- NOTE | 2022-05-07 10:42 | Fluoroscopy Report ---
FL lumbar spine 2-3V CLINICAL HISTORY: L4-5 REMOVE HARDWARE/ L2-4 DFI. No internal fixation COMPARISON STUDY: 06/05/2017 FLUOROSCOPY TIME: 19 seconds. FLUOROSCOPIC IMAGES: 3 FINDINGS: There has been interval removal of screw and alex fixation at L4-5 with placement of interpe dicular screws and rods from L2 through L4. Disc spacers are now seen at L2-3 and L3-4 in addition to the previous disc space. L4-5. IMPRESSION: Status post internal fixation from L2 through L5. ACT 112: Negative or not required by law. Electronically signed by: Mateo Robin M.D. 05/07/2022 10:40 AM
[2022-05-07] MEDS ORDERED: ALPRAZolam 0.25 MG TABLET PO PRN (12:42)
[2022-05-07] MEDS ORDERED: PHARMACY GLYCEMIC MGMT CONSULT PRN (12:42)
[2022-05-07] MEDS ORDERED: ALUMINUM/MAGNESIUM SUSP 30 ML UDC PO PRN (12:42)
[2022-05-07] MEDS ORDERED: diphenhydrAMINE Capsule 25 MG CAP PO PRN (12:42)
[2022-05-07] MEDS ORDERED: METOCLOPRAMIDE HCL INJ 5 MG/ML 2 ML VIAL IV PRN (12:42)
[2022-05-07] MEDS ORDERED: ACETAMINOPHEN 1,000 MG/100 ML VIAL IV PRN (12:42)
[2022-05-07] MEDS ORDERED: LORazepam 0.5 MG TAB PO PRN (12:42)
[2022-05-07] MEDS ORDERED: PROMETHAZINE HCL 12.5 MG in SODIUM CHLORIDE 0.9% 50 ML IV PRN (12:42)
[2022-05-07] MEDS ORDERED: DO NOT ADMINISTER FLU VACCINE PRN (12:42)
[2022-05-07] MEDS ORDERED: FAMOTIDINE 20 MG TAB PO PRN (12:42)
[2022-05-07] MEDS ORDERED: NALOXONE HCL 0.4 MG/1 ML VIAL/CARP IV PRN (12:42)
[2022-05-07] MEDS ORDERED: MAGNESIUM HYDROXIDE SUSP 30 ML UDC PO PRN (12:42)
[2022-05-07] MEDS ORDERED: LORazepam 2 MG/1 ML VIAL IV PRN (12:42)
[2022-05-07] MEDS ORDERED: SOD PHOSPHATE/SOD BIPHOSPHATE ENEMA 132 ML BTL PR PRN (12:42)
[2022-05-07] MEDS ORDERED: traMADol HCL 50 MG TABLET PO PRN (12:42)
[2022-05-07] MEDS ORDERED: HYDROmorphone INJ 0.5 MG/0.5 ML SYR IV PRN (12:42)
[2022-05-07] MEDS ORDERED: DO NOT ADMINISTER PNEUMOCOCCAL VACCINE PRN (12:42)
[2022-05-07] MEDS: SODIUM CHLORIDE 0.9% 1000ML 1,000 ML IV SCH (13:21)
--- NOTE | 2022-05-07 13:54 | XRay Report ---
KUB HISTORY: Acute generalized abdominal pain with constipation. K59.09 - Other constipation COMPARISON: Fluoroscopic images of the lumbar spine of same day, KUB 04/17/2022 FINDINGS: Cardiomegaly with partially imaged pacer leads. Nonobstructive bowel gas pattern. Moderate rectal fecal retention. Cholecystectomy. Posterior interbody alex and screw fusion hardware is noted a t L2-L5 with associated discectomy changes. A surgical drainage catheter overlies the midline termina ting at the L1-L2 level. There are numerous antibiotic seeds projected over the operative levels. No renal calculi. No ureteral calculi. No pneumoperitoneum or pneumatosis. IMPRESSION: 1. Nonobstructive bowel gas pattern. 2. Moderate fecal retention of the rectum. 3. Postoperative changes of the lumbar spine as above. ACT 112: Negative or not required by law. The above report was generated using voice recognition software. It may contain grammatical, syntax o r spelling errors. Electronically signed by: Wesley Weems M.D. 05/07/2022 1:52 PM
[2022-05-07] MEDS ORDERED: GLUCAGON FOR INJ 1 MG VIAL IM PRN (14:15)
[2022-05-07] MEDS ORDERED: GLUCOSE 10 TABS/TUBE PO PRN (14:15)
[2022-05-07] MEDS ORDERED: CARBOHYDRATES FOR HYPOGLYCEMIA PO PRN (14:15)
[2022-05-07] MEDS ORDERED: DEXTROSE 50% 50 ML SYRINGE IV PRN (14:15)
[2022-05-07] MEDS ORDERED: GLUCOSE 40% GEL 15 GM TUBE PO PRN (14:15)
--- NOTE | 2022-05-07 14:15 | Anesthesiology Progress Note ---
Date of Service May 07, 2022 Anesthesia Post Procedure Vital Signs Vital Signs: Temp Pulse Pulse Resp BP BP Pulse Ox 05/07/22 13:42 36.1 C L 60 14 100/66 97 05/07/22 13:13 36.5 C 60 14 108/72 97 05/07/22 12:48 36.5 C 60 18 100/64 96 05/07/22 12:20 60 16 101/55 L 97 05/07/22 12:10 36.3 C L 60 14 110/65 95 05/07/22 12:00 60 14 103/61 94 05/07/22 11:50 36.0 C L 60 14 99/57 L 92 05/07/22 11:40 60 14 102/56 L 93 05/07/22 11:30 60 14 97/53 L 93 05/07/22 11:20 60 16 95/54 L 95 05/07/22 11:10 60 16 97/54 L 96 05/07/22 11:00 60 20 100/62 97 05/07/22 10:50 60 16 90/52 L 96 05/07/22 10:44 36.0 C L 63 15 101/55 L 97 05/07/22 06:48 36.7 C 81 18 161/79 H 96 Pain Intensity Bilateral Back: Pain Intensity: 0 Transfer of Care Handoff Completed per policy Notes Mental Status: alert / awake / arousable and participated in evaluation Patient Amnestic to Procedure: Yes Nausea / Vomiting: adequately controlled Pain: adequately controlled Airway Patency, RR, SpO2: stable & adequate BP & HR: stable & adequate Hydration State: stable & adequate Anesthetic Complications: no major complications apparent and Pt Satisfied with anesthetic care
--- NOTE | 2022-05-07 14:26 | Pharmacy Report ---
Pharmacy Glycemic Short Note 2 - Date of Service May 07, 2022 - Glycemic Short BSG Results (Last 24 hours): 05/07/22 05/07/22 05/07/22 06:34 11:11 13:16 POC Glucose 218 H 202 H 238 H OUTPATIENT ANTIDIABETIC REGIMEN: * U-500 --- 80 units with breakfast, 80 units with lunch, and 65 units with dinner * HbA1C = 9.3% (04/26/22) ASSESSMENT: * Ms Robledo is a 76 y/o F with a PMH of T2DM on U-500 insulin who presents for spinal surgery. Patient did not receive any steroids in surgery. * Patient has not received insulin today. BSGs are 218-202-238 mg/dL. * Typically when hospitalized, U-500 patients require half the dose of insulin. Since patient admitted at mid-day will trial utilizing NPH. Start with 50 units (total daily dose of basal insulin for 112 units/day). * Will use tight Novolog as uncertain about patient's basal needs. 00,04 checks to ensure 24 hour coverage. PLAN FOR INPATIENT GLYCEMIC CONTROL: * Basal insulin * NPH 50 units SQ x 1 then readjust tomorrow * Bolus insulin * NovoLog per scale ACHS or Q6hrs while NPO * Goal Range: Low 110 mg/dL - High 140 mg/dL * Correction Factor: 10 mg/dL/unit * Nutritional / Prandial insulin per carb ratio of 1 unit per 4 grams CHO consumed
[2022-05-07] MEDS ORDERED: INSULIN HUMAN NPH SC ONE (14:30)
[2022-05-07] MEDS ORDERED: FLUTICASONE PROPIONATE NA SPR 16 GM BTL PRN (14:42)
[2022-05-07] MEDS: INSULIN ASPART PER UNIT SC SCH ×3 (14:57→20:58)
[2022-05-07] MEDS: ceFAZolin 2000MG 2,000 MG/15 ML SYR IV SCH (17:13)
[2022-05-07] MEDS: SUCRALFATE 1 GM/10 ML UDC PO SCH (17:13)
[2022-05-07] MEDS: ATORVASTATIN 40 MG TAB PO SCH (19:38)
[2022-05-07] MEDS: oxyCODONE HCL IR 5 MG TAB (IMMEDIATE RELEASE) PO PRN (19:38)
[2022-05-07] MEDS: DOCUSATE SODIUM/SENNA 50/8.6MG TAB PO SCH (19:46)
[2022-05-07] MEDS: IPRATROPIUM BROMIDE NASAL SPRAY 0.06% 15ML NAE SCH (19:50)
[2022-05-08] MEDS: SODIUM CHLORIDE 0.9% 1000ML 1,000 ML IV SCH ×3 (01:00→20:06)
[2022-05-08] MEDS: ceFAZolin 2000MG 2,000 MG/15 ML SYR IV SCH (01:09)
[2022-05-08] MEDS: INSULIN ASPART PER UNIT SC SCH ×6 (01:12→18:25)
[2022-05-08] MEDS: ACETAMINOPHEN 500 MG TAB PO PRN (03:51)
[2022-05-08] MEDS: POLYETHYLENE (MIRALAX) 17 GM PACK PO SCH ×3 (05:24→18:10)
[2022-05-08 06:32] LABS: Basophils # (auto) 0.01 K/uL (0-0.2); Basophils % (auto) 0.1 %; Eosinophils # (auto) 0.11 K/uL (0-0.5); Eosinophils % (auto) 0.9 %; Hematocrit (blood only) 26.5 % (37-47); Hemoglobin 8.7 g/dL (12.0-16.0); Immature Granulocytes # (auto) 0.05 K/uL (0.00-0.02); Immature Granulocytes % (auto) 0.4 %; Lymphocytes # (auto) 1.53 K/uL (1.2-3.4); Lymphocytes % (auto) 12.9 %; Mean Corpuscular Hemoglobin 28.8 pg (25-34); Mean Corpuscular Hgb Conc 32.8 g/dL (32-36); Mean Corpuscular Volume 87.7 fL (80-100); Mean Platelet Volume 9.1 fL (7.4-10.4); Monocytes # (auto) 1.02 K/uL (0.11-0.59); Monocytes % (auto) 8.6 %; Neutrophils % (auto) 77.1 %; Platelet Count 275 K/uL (130-400); RDW Coefficient of Variation 16.4 % (11.5-14.5); RDW Standard Deviation 52.9 fL (36.4-46.3); Red Blood Count 3.02 M/uL (4.2-5.4); White Blood Count 11.82 K/uL (4.8-10.8)
[2022-05-08 06:51] LABS: BUN Creatinine Ratio 20.3 (10-20); Calcium 7.7 mg/dl (8.5-10.1); Creatinine Clr Calc Pharmacy 83.1 ml/min; Est GFR (African American) 102.5 ml/min; Est GFR (Non-African American) 88.4 ml/min; Potassium 3.8 mmol/L (3.5-5.1)
--- NOTE | 2022-05-08 06:58 | Hospitalist Consultation ---
Date of Consultation May 08, 2022 Assessment & Plan (1) Neurogenic claudication due to lumbar spinal stenosis: Per primary team DVT prph: defer to primary service. (2) Ileus: Most likely due to narcotics, postoperative may also be playing a role. Abdomen is distended KUB shows ileus will place NPO this afternoon. will hold narcotics. will monitor. (3) Acute metabolic encephalopathy: likely due to narcotics (4) Diabetes mellitus, type 2: Latest outpatient A1C:9.3 from March. 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 will defer to primary team when to restart. continue BB ARB, STATIN History of Present Illness Reason for Consultation: medical management Attending Physician: Cornelius Hardy, DO History of Present Illness This is a pleasnat 77 yo female with PMH described below. She is admitted for Spinal Stenosis, Lumbar Region with Neurogenic claudication. Patient had the following procedures: #1 removal of posterior instrumentation L4-L5. #2 exploration of fusion L4-L5. #3 lumbar decompression bilateral medial facetectomies and foraminotomies L1-L2, L2-3 and L3-4. #4 posterior spinal fusion L2-L3 L3-L4. #5 placement posterior instrumentation L2-L5. #6 interbody fusion L2-L3 L3-L4. #7 placement of Spira 12 x 26 mm cage at L2-L3 and 13 x 26 at L3-L4. #8 placement locally harvested morselized autograft in the posterior gutters. #9 placement infuse collagen sponge, master graft in the posterior lateral gutters and I factor and interbody space. Given her comorbidities, medical consultation was ordered. When arriving to bedside, nurse reports patient has been more lethargic after receiving 10 mg of oxycodone. Patient is able to answer questions, and is asking for additional discharge instructions regarding her insulin usage. Allergies Allergy/AdvReac Type Severity Reaction Status Date / Time levofloxacin Allergy Unknown ITCHY HIVES Verified 05/07/22 06:30 ofloxacin Allergy Unknown RASH Verified 05/07/22 06:30 pioglitazone Allergy Unknown ITCHING Verified 05/07/22 06:30 Sulfa (Sulfonamide Allergy Unknown itchy Verified 05/07/22 06:30 Antibiotics) KNEE GEL SHOT Allergy Unknown SWELLING Uncoded 06/07/22 06:30 AND BRUISING Home Medications Medication Instructions Recorded Confirmed Type cyanocobalamin (vitamin B-12) 1,000 mcg PO QAM tab 05/13/19 05/07/22 History 1,000 mcg tablet multivitamin (Multiple Vitamins) 1 tab PO QAM 07/01/19 05/07/22 History levalbuterol HCl 0.63 mg/3 mL 0.63 mg INH TID PRN #360 ml 12/23/19 05/07/22 Rx solution for nebulization polyethylene glycol 3350 17 17 g PO HS 05/19/20 05/07/22 History gram/dose oral powder (Miralax) valacyclovir 500 mg tablet 500 mg PO UD PRN tab 06/13/20 05/07/22 History tiotropium bromide 2.5 2 puffs INH QAM 07/28/20 05/07/22 History mcg/actuation mist for inhalation (Spiriva Respimat) bupropion HCl 150 mg 24 hr tablet, 150 mg PO QAM #90 tab 06/04/21 05/07/22 Rx extended release duloxetine 30 mg capsule,delayed 30 mg PO QAM #90 cap 06/04/21 05/07/22 Rx release lancets 33 gauge (OneTouch Delica #100 ea 08/21/21 04/26/22 History Lancets) pen needle, diabetic 31 gauge x #300 ea 08/21/21 04/26/22 Rx 3/16" (BD Ultra-Fine Mini Pen Needle) prucalopride 2 mg tablet 2 mg PO QAM #90 tab 09/18/21 05/07/22 Rx (Motegrity) albuterol sulfate 90 mcg/actuation 2 puff INH Q4H PRN #54 gm 10/01/21 05/07/22 Rx aerosol inhaler (Ventolin HFA) atorvastatin 80 mg tablet 80 mg PO QPM #90 tab 10/08/21 05/07/22 Rx spironolactone 50 mg tablet 50 mg PO QAM #90 tab 10/08/21 05/07/22 Rx metoprolol succinate 200 mg 200 mg PO QAM #90 tab 11/07/21 05/07/22 Rx tablet,extended release 24 hr dexlansoprazole 60 mg 60 mg PO QAM #90 cap 11/19/21 05/07/22 Rx capsule,biphase delayed release ondansetron 4 mg disintegrating 4 mg PO Q8H PRN #120 tab 11/19/21 05/07/22 Rx tablet blood sugar diagnostic (OneTouch 11/20/21 04/26/22 History Ultra Test) metformin 500 mg tablet,extended 500 mg PO BID #180 tab 11/26/21 05/07/22 Rx release 24 hr clopidogrel 75 mg tablet 75 mg PO QAM #90 tab 12/04/21 05/07/22 Rx cyclobenzaprine 5 mg tablet 5 mg PO UD PRN 12/07/21 05/07/22 History doxepin 75 mg capsule 75 mg PO QAM 12/07/21 05/07/22 History losartan 25 mg tablet 25 mg PO QAM 12/07/21 05/07/22 History cholecalciferol (vitamin D3) 25 2,000 unit PO QAM tab 12/12/21 05/07/22 History mcg (1,000 unit) tablet inhaler,assist devices,access #1 ea 12/19/21 04/26/22 Rx OneTouch Ultra Control (blood #1 ea NS 01/16/22 04/26/22 Rx glucose control, normal) fluticasone propionate 230 2 inh INHALATION BID 90 Days #3 01/21/22 05/07/22 Rx mcg-salmeterol 21 mcg/actuation inhaler HFA inhaler (Advair HFA) ipratropium bromide 21 mcg (0.03 2 spray INTRANASAL BID #30 ml 01/21/22 05/07/22 Rx %) nasal spray diltiazem HCl 420 mg capsule,24 420 mg PO QAM #90 cap 01/24/22 05/07/22 Rx hr,extended release insulin regular hum U-500 conc 65 - 80 unit SQ UD box 02/18/22 05/07/22 History (Humulin R U-500 (Conc) Insulin Kwikpen) chlorpheniramine maleate 4 mg 4 mg PO UD PRN tab 02/19/22 05/07/22 History tablet sucralfate 100 mg/mL oral 10 ml PO BID #420 ml 02/27/22 05/07/22 Rx suspension codeine 10 mg-guaifenesin 100 mg/5 5 ml PO UD PRN 04/15/22 05/07/22 History mL oral liquid mometasone 50 mcg/actuation nasal 2 spray INTRANASAL UD PRN 04/15/22 05/07/22 History spray alprazolam 0.25 mg tablet 0.25 mg PO BID PRN #60 tab 04/19/22 05/07/22 Rx oxycodone 5 mg tablet 5 mg PO Q6H PRN #30 tab 05/08/22 Rx tramadol 50 mg tablet 50 mg PO Q6H PRN #30 tab 05/08/22 Rx Patient History Medical History Anxiety Atrial premature complex F/U DR MITCH LONDONO Cancer HX BREAST 7 YR AGO, R mastectomy and lymph node excision, No chemo or XRT RUE limb restriction Carotid stenosis, asymptomatic S/p right CEA (2013) - follows with Dr. Kohli Chronic cough Nonproductive, ongoing evaluation/management. 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 Webber Depression Diabetic peripheral neuropathy Bilateral feet Difficult intravenous access Duodenal hemorrhage HX GI BLEED No recent issues Fatty liver Frequent falls D/t issues with back currently per pt, MOST RECENT FALL 7 WEEKS AGO - LEFT LEG BURSA SAC RUPTURE AND HURT RIGHT SHOULDER PER PT Gastroparesis Horners syndrome DROOPY EYES, BOTH - RIGHT IS WORSE AND GETS WORSE WITH FATIGUE Knee problem LEFT KNEE GEL SHOT INJECTION 5 WEEKS AGO, HAD SWELLING AND BRUISING AFTER - PT DISCUSSED WITH DR GREENWOOD AND WAS TOLD SHE WAS ALLERGIC TO IT AND NOT TO RECEIVE IN THE FUTURE - MILD BRUISING REMAINS Lumbar stenosis with neurogenic claudication Migraines Mixed hearing loss, bilateral Osteopenia Pacemaker 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 s/p Medtronic [place] XT DR KELLY Dual Chamber Pacemaker 04/12/21 LAST PACEMAKER CHECK 12/2021 Post-traumatic stress disorder Primary hypertension controlled per pt Syncope HX , RESOLVED WITH PACEMAKER PLACEMENT TIA (transient ischemic attack) 01/2018--reason for plavix, no deficits Type 2 diabetes mellitus Usually well controlled unless on steroids Surgical History Abdominoplasty (05/12/13) History of anesthesia reaction difficulty waking with 1st back surgery @ [facility] [place]--no issues since History of bilateral cataract extraction History of bilateral mastectomy h/o R breast CA-lymph node removal R side History of bilateral tubal ligation History of bladder suspension procedure History of breast reconstruction Bilateral, Dr. Barr, Tanner Style 410 implant, size unknown History of carotid endarterectomy right, 2013 History of carpal tunnel release of both wrists History of cholecystectomy History of colonoscopy with polypectomy History of esophagogastroduodenoscopy (EGD) History of fusion of cervical spine x3--"cant turn to the right" History of fusion of lumbar spine x4 History of oral surgery gum sx History of right breast biopsy malignant History of surgery on left wrist plate in place History of total hysterectomy with bilateral salpingo-oophorectomy (BSO) History of total right knee replacement (TKR) History of trigger finger x4--bilt hands Pacemaker Medtronic, placed 03/2021, follows with [place] cardiology Family History Son Crohn's disease Sister Ulcerative colitis Family history of diabetes mellitus Mother Family history of diabetes mellitus Brother Family history of diabetes mellitus Other No family history of adverse response to anesthesia No family history of bleeding disorder Social History Smoking Status: Never smoker Second Hand Exposure: No; Do You Dip or Chew Tobacco: No; Hx Alcohol Use: Yes Alcohol type: beer Hx Substance Use: No Preferred Language: Turkmen Communication Ability: Effective 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 Beliefs That Will Affect Care: None marital status: Current Living Situation: Spouse Current Living Situation Comment: LIVES WITH SPOUSE current occupational status: retired Other Information That Helps Us Care for You: Yes (INTERESTED IN IN HOME CARE AFTER SURGERY) Feels Safe at Home: Yes Safety Concerns: Feels Safe At This Time during the past year weight has: decreased > 10 lbs Dental Care, Regularly: Yes Physical Activity Frequency: Daily Seatbelt Use: always Sunscreen Use: Yes Assistive Devices: Walker Assistive Devices Comment: LIFE ALERT SYSTEM, READING GLASSES, IMPLANTS AND PERMANENT BRIDGE Review of Systems Constitutional: no fever and no malaise Eyes: no blind spots Ear, Nose, Mouth, Throat: no ear pain Respiratory: no cough Cardiovascular: no chest pain Gastrointestinal: no abdominal pain Genitourinary: no dysuria Musculoskeletal: + back pain Integumentary: no rash Neurologic: + confusion Psychiatric: no behavioral changes Endocrine: no fatigue Hematologic / Lymphatic: no easy bleeding Allergy / Immunological: no GI upset with certain foods Physical Exam Constitutional: WD/WN, vitals as above ENMT: external ear and nose normal, oropharynx normal Neck: trachea midline, no thyromegaly Respiratory: normal respiratory effort, lungs clear to auscultation Cardiovascular: RRR, no murmur, no edema Gastrointestinal (Abdomen): Inspection/Auscultation: + abdomen distended and + hypoactive bowel sounds Percussion/Palpation: abdomen nontender and no guarding Musculoskeletal: Head/Neck/Chest: + head abnormal to inspection Skin: no rashes, warm and dry Neurologic: PERRL, EOMI, accommodation nl, no face palsy, no dysarthria Psychiatric: Orientation: alert, oriented to person and oriented to place; + not oriented to time Lymphatic: no cervical or axillary lymphadenopathy Results & Data Results & Data ([facility]) Vital Signs (Past 12 Hours) Vital Signs Temp Pulse Resp BP Pulse Ox 05/08/22 03:41 37.5 C 74 16 92/59 L 95 05/07/22 22:35 36.6 C 66 18 88/55 L 92 05/07/22 19:04 36.7 C 74 18 112/67 93 PG Care Time/CCT Total # of Minutes Spent Total Time Spent with Patient: Total time spent is greater than 50% in coordination of care (as documented) at patient's floor/unit and/or counseling patient: Coding Level of Care Code 94588 Inpt Consult Level 4 Diagnoses Diabetes mellitus, type 2 E11.9 Neurogenic claudication due to lumbar spinal stenosis M48.062 Depression with anxiety F41.8 Intrinsic asthma J45.909 TIA (transient ischemic attack) G45.9 Acute metabolic encephalopathy G93.41 Ileus K56.7
[2022-05-08] MEDS: METOPROLOL SUCC 50MG EXT REL TAB PO SCH (08:07)
[2022-05-08] MEDS: SPIRONOLACTONE 25 MG TAB PO SCH (08:08)
[2022-05-08] MEDS: LOSARTAN POTASSIUM 25 MG TAB PO SCH (08:08)
[2022-05-08] MEDS: SUCRALFATE 1 GM/10 ML UDC PO SCH ×2 (08:35→18:08)
[2022-05-08] MEDS: FLUTICASONE/VILANTEROL 100/25MCG 14 PUFFS/INHALER INH SCH (08:36)
[2022-05-08] MEDS: CYANOCOBALAMIN (B-12) 500 MCG TABLET PO SCH (08:36)
[2022-05-08] MEDS: DOXEPIN HCL 75 MG CAPSULE PO SCH (08:36)
[2022-05-08] MEDS: MULTIVITAMIN TAB PO SCH (08:36)
[2022-05-08] MEDS: buPROPion XL 150 MG TABCR PO SCH (08:36)
[2022-05-08] MEDS: DULoxetine HCL 30 MG CAP PO SCH (08:36)
[2022-05-08] MEDS: CHOLECALCIFEROL 1,000 UNITS 25 MCG TAB PO SCH (08:36)
[2022-05-08] MEDS: PANTOprazole 40 MG TAB PO SCH (08:36)
[2022-05-08] MEDS: IPRATROPIUM BROMIDE NASAL SPRAY 0.06% 15ML NAE SCH ×2 (08:37→20:07)
[2022-05-08] MEDS: UMECLIDINIUM BROMIDE 62.5MCG/BLISTER 7 PUFFS/INHALER INH SCH (08:39)
[2022-05-08] MEDS: oxyCODONE HCL IR 5 MG TAB (IMMEDIATE RELEASE) PO PRN (08:41)
[2022-05-08] MEDS ORDERED: INSULIN HUMAN NPH SC SCH (09:00)
[2022-05-08] MEDS ORDERED: INSULIN HUMAN NPH SC ONE ×3 (09:00→18:15)
[2022-05-08] MEDS: dilTIAZem ER 120 MG CAPCR PO SCH (09:13)
[2022-05-08] MEDS: dilTIAZem ER 180 MG CAPCR PO SCH (09:13)
--- NOTE | 2022-05-08 09:54 | Orthopedic Progress Note ---
Date of Service May 08, 2022 Assessment & Plan (1) Neurogenic claudication due to lumbar spinal stenosis: Plan: At this time we will continue physical therapy monitor RIO output hopefully discharge home this weekend. Admission and Anticipated Discharge Date Admission Date: May 07, 2022 Subjective Back pain controlled leg pain improved Physical Exam Physical Exam: Patient is in bed. She is constricted testing. Results & Data ([facility]) Vital Signs (Past 12 Hours) Vital Signs Temp Pulse Pulse Resp BP Pulse Ox 05/08/22 08:00 36.6 C 71 18 96/62 L 94 05/08/22 03:41 37.5 C 74 16 92/59 L 95 05/07/22 22:35 36.6 C 66 18 88/55 L 92
[2022-05-08] MEDS ORDERED: LACTATED RINGER'S 1,000 ML IV SCH (13:30)
--- NOTE | 2022-05-08 14:55 | Pharmacy Report ---
Pharmacy Glycemic Short Note 2 - Date of Service May 08, 2022 - Glycemic Short BSG Results (Last 24 hours): 05/07/22 05/07/22 05/08/22 17:12 20:47 01:08 Glucose POC Glucose 164 H 114 H 74 05/08/22 05/08/22 05/08/22 03:51 06:06 08:11 Glucose 88 POC Glucose 103 H 96 05/08/22 12:16 Glucose POC Glucose 108 H OUTPATIENT ANTIDIABETIC REGIMEN: * U-500 --- 80 units with breakfast, 80 units with lunch, and 65 units with dinner * HbA1C = 9.3% (04/26/22) ASSESSMENT: 05/08/22 * Patient's BSGs yesterday were [id number] and overnight were 74-103 mg/dL. Today's BSGs are 96-108 mg/dL. * Patient received 74 units of insulin yesterday (50 units of NPH and 24 units of Novolog). * Patient was hypotensive this morning. * Will reduce basal by at least 25% (maximum of 35 units today). Plan for 15 units at breakfast due to hypotension then scale for evening. * Loosen Novolog to weight-based stress of 3 (corresponds with 40 units of basal daily). Background * Ms Robledo is a 76 y/o F with a PMH of T2DM on U-500 insulin who presents for spinal surgery. Patient did not receive any steroids in surgery. * Patient has not received insulin today. BSGs are 218-202-238 mg/dL. * Typically when hospitalized, U-500 patients require half the dose of insulin. Since patient admitted at mid-day will trial utilizing NPH. Start with 50 units (total daily dose of basal insulin for 112 units/day). * Will use tight Novolog as uncertain about patient's basal needs. 00,04 checks to ensure 24 hour coverage. PLAN FOR INPATIENT GLYCEMIC CONTROL: * Basal insulin * NPH 15 units this morning then 10-20 units tonight at dinner depending on BSG * Bolus insulin * NovoLog per scale ACHS or Q6hrs while NPO * Goal Range: Low 110 mg/dL - High 140 mg/dL * Correction Factor: 20 mg/dL/unit * Nutritional / Prandial insulin per carb ratio of 1 unit per 6 grams CHO consumed
[2022-05-08] MEDS ORDERED: oxyCODONE HCL IR 5 MG TAB (IMMEDIATE RELEASE) PO PRN (15:54)
[2022-05-08 16:38] LABS: Hematocrit (blood only) 27.8 % (37-47); Hemoglobin 9.1 g/dL (12.0-16.0)
--- NOTE | 2022-05-08 17:45 | XRay Report ---
KUB CLINICAL HISTORY: Abdominal distention. FINDINGS: An AP, portable, supine abdominal radiograph is compared to study dated 05/07/2022 and correl ated with abdominal CT dated 04/01/2017. Cholecystectomy clips are noted in the upper quadrant. There i s no bowel obstruction. Mildly distended gas-filled loops of small bowel and colon suggest ileus. A s urgical drain projects over the lower back. No evidence of intraperitoneal free air is seen on these supine images. There are no abnormal abdominal calcifications. Postoperative and spondylotic change i s noted in the lumbar spine. IMPRESSION: Findings suggest ileus. Clinical correlation will be required. Electronically signed by: Driss Stanley M.D. 05/08/2022 5:42 PM
[2022-05-08] MEDS: ATORVASTATIN 40 MG TAB PO SCH (20:06)
[2022-05-08] MEDS: DOCUSATE SODIUM/SENNA 50/8.6MG TAB PO SCH (23:59)
[2022-05-09] MEDS: INSULIN ASPART PER UNIT SC SCH ×5 (00:06→21:00)
[2022-05-09] MEDS: POLYETHYLENE (MIRALAX) 17 GM PACK PO SCH ×3 (00:13→12:30)
[2022-05-09] MEDS: ACETAMINOPHEN 500 MG TAB PO PRN ×2 (04:22→20:18)
[2022-05-09] MEDS: SODIUM CHLORIDE 0.9% 1000ML 1,000 ML IV SCH ×2 (06:03→15:54)
[2022-05-09] MEDS: SUCRALFATE 1 GM/10 ML UDC PO SCH ×2 (08:08→17:52)
[2022-05-09] MEDS: buPROPion XL 150 MG TABCR PO SCH (08:09)
[2022-05-09] MEDS: CYANOCOBALAMIN (B-12) 500 MCG TABLET PO SCH (08:09)
[2022-05-09] MEDS: DOXEPIN HCL 75 MG CAPSULE PO SCH (08:09)
[2022-05-09] MEDS: PANTOprazole 40 MG TAB PO SCH (08:10)
[2022-05-09] MEDS: MULTIVITAMIN TAB PO SCH (08:11)
[2022-05-09] MEDS: CHOLECALCIFEROL 1,000 UNITS 25 MCG TAB PO SCH (08:11)
[2022-05-09] MEDS: UMECLIDINIUM BROMIDE 62.5MCG/BLISTER 7 PUFFS/INHALER INH SCH (08:12)
[2022-05-09] MEDS: IPRATROPIUM BROMIDE NASAL SPRAY 0.06% 15ML NAE SCH ×2 (08:12→21:00)
[2022-05-09] MEDS: DULoxetine HCL 30 MG CAP PO SCH (08:12)
[2022-05-09] MEDS: FLUTICASONE/VILANTEROL 100/25MCG 14 PUFFS/INHALER INH SCH (08:12)
[2022-05-09] MEDS ORDERED: Nursing to Pharmacy Communication SCH (08:15)
--- NOTE | 2022-05-09 08:22 | Orthopedic Progress Note ---
Date of Service May 09, 2022 Assessment & Plan (1) Neurogenic claudication due to lumbar spinal stenosis: Plan: This time initiate physical therapy will can advance her diet to a liquid diet today. We will limit narcotic utilization Admission and Anticipated Discharge Date Admission Date: May 07, 2022 Subjective Patient's back pain is controlled her abdominal pain markedly improved. She did have a bowel movement last night. She has positive flatus this morning. Physical Exam Physical Exam: On exam her abdomen is soft. She is good strength testing lower extremities. Results & Data ([facility]) Vital Signs (Past 12 Hours) Vital Signs Temp Pulse Resp BP Pulse Ox 05/09/22 08:20 88 113/73 92 05/09/22 06:31 37.0 C 83 18 112/68 97 05/08/22 22:19 36.8 C 91 H 18 111/71 92
[2022-05-09] MEDS: METOPROLOL SUCC 50MG EXT REL TAB PO SCH (08:47)
[2022-05-09] MEDS: dilTIAZem ER 180 MG CAPCR PO SCH (08:47)
[2022-05-09] MEDS ORDERED: INSULIN HUMAN NPH SC ONE ×2 (09:00→17:00)
[2022-05-09 09:41] LABS: Basophils # (auto) 0.02 K/uL (0-0.2); Basophils % (auto) 0.2 %; Eosinophils # (auto) 0.08 K/uL (0-0.5); Eosinophils % (auto) 0.8 %; Hematocrit (blood only) 25.1 % (37-47); Hemoglobin 8.2 g/dL (12.0-16.0); Immature Granulocytes # (auto) 0.05 K/uL (0.00-0.02); Immature Granulocytes % (auto) 0.5 %; Lymphocytes # (auto) 0.92 K/uL (1.2-3.4); Lymphocytes % (auto) 9.5 %; Mean Corpuscular Hemoglobin 28.8 pg (25-34); Mean Corpuscular Hgb Conc 32.7 g/dL (32-36); Mean Corpuscular Volume 88.1 fL (80-100); Mean Platelet Volume 9.3 fL (7.4-10.4); Monocytes # (auto) 0.82 K/uL (0.11-0.59); Monocytes % (auto) 8.5 %; Neutrophils # (auto) 7.79 K/uL (1.4-6.5); Neutrophils % (auto) 80.5 %; Platelet Count 290 K/uL (130-400); RDW Coefficient of Variation 16.2 % (11.5-14.5); RDW Standard Deviation 53.3 fL (36.4-46.3); Red Blood Count 2.85 M/uL (4.2-5.4); White Blood Count 9.68 K/uL (4.8-10.8)
[2022-05-09 10:01] LABS: BUN Creatinine Ratio 14.8 (10-20); Calcium 8.1 mg/dl (8.5-10.1); Creatinine Clr Calc Pharmacy 90.8 ml/min; Est GFR (African American) 105.5 ml/min; Potassium 3.4 mmol/L (3.5-5.1)
--- NOTE | 2022-05-09 13:10 | Pharmacy Report ---
Pharmacy Glycemic Short Note 2 - Date of Service May 09, 2022 - Glycemic Short BSG Results (Last 24 hours): 05/08/22 05/08/22 05/09/22 17:09 23:54 06:01 Glucose POC Glucose 160 H 187 H 196 H 05/09/22 05/09/22 08:49 11:59 Glucose 173 H POC Glucose 202 H OUTPATIENT ANTIDIABETIC REGIMEN: * U-500 --- 80 units with breakfast, 80 units with lunch, and 65 units with dinner * HbA1C = 9.3% (04/26/22) ASSESSMENT: 05/09/22 * Patient's BSGs yesterday were [phone] mg/dL. Patient received 32 units of insulin (25 units of basal and 7 units of bolus). Patient made NPO at dinner due to lethargy and confusion. * Based upon BSGs it is clear that 25 units of basal insulin is not sufficient. Will increase to NPH 20 units BID (in-between 25 and 50 units trialed previously). * Continue Novolog. 05/08/22 * Patient's BSGs yesterday were [id number] and overnight were 74-103 mg/dL. Today's BSGs are 96-108 mg/dL. * Patient received 74 units of insulin yesterday (50 units of NPH and 24 units of Novolog). * Patient was hypotensive this morning. * Will reduce basal by at least 25% (maximum of 35 units today). Plan for 15 units at breakfast due to hypotension then scale for evening. * Loosen Novolog to weight-based stress of 3 (corresponds with 40 units of basal daily). Background * Ms Robledo is a 76 y/o F with a PMH of T2DM on U-500 insulin who presents for spinal surgery. Patient did not receive any steroids in surgery. * Patient has not received insulin today. BSGs are 218-202-238 mg/dL. * Typically when hospitalized, U-500 patients require half the dose of insulin. Since patient admitted at mid-day will trial utilizing NPH. Start with 50 units (total daily dose of basal insulin for 112 units/day). * Will use tight Novolog as uncertain about patient's basal needs. 00,04 checks to ensure 24 hour coverage. PLAN FOR INPATIENT GLYCEMIC CONTROL: * Basal insulin * NPH 20 units SQ BID * Bolus insulin * NovoLog per scale ACHS or Q6hrs while NPO * Goal Range: Low 110 mg/dL - High 140 mg/dL * Correction Factor: 20 mg/dL/unit * Nutritional / Prandial insulin per carb ratio of 1 unit per 6 grams CHO consumed
--- NOTE | 2022-05-09 16:17 | Hospitalist Progress Note ---
Date of Service May 09, 2022 Assessment & Plan (1) Neurogenic claudication due to lumbar spinal stenosis: Plan: Per primary team Will stop oxycodone for now and reduce tramadol dosing to 25-50mg. Stop sedating medications such as lorazepam PRN (although notably has not had any doses of this). DVT prph: defer to primary service. (2) Acute metabolic encephalopathy: Plan: Suspect due to doxepin prescribed in the morning. Less likely due to opiates since she is used to taking percocets at home. Doxepin unfortunately already given this morning. Will switch to nightly starting tomorrow night and at reduced dose. Stop oxycodone for now and switch to lower dose tramadol for pain. Can likely go back onto oxycodone tomorrow if more awake having not been given doxepin in the morning. (3) Ileus: Plan: Post op ileus No bowel movement but patient also denies any abdominal pain, nausea or vomiting. She is unclear if passing gas. Currently on MiraLAX q6h and Senna/docusate 2 tabs daily Will continue to monitor (4) Diabetes mellitus, type 2: Plan: Latest outpatient A1C:9.3 from March. Pharmacy consulted for glycemic control (5) Depression with anxiety: Plan: resume her home medication (6) TIA (transient ischemic attack): Plan: clopidogrel on hold. will defer to primary team when to restart. continue BB AND STATIN. ARB on hold due to relative hypotension (7) Hypertension: Plan: Given relatively low BP having missed all her routine antihypertensives yesterday will restart a lower dose of diltiazme and metoprolol today. Continue to hold spironolactone and losartan (8) Gastroesophageal reflux disease: Plan: Dexlansoprazole switched to pantoprazole per hospital pharmacy. Continue Carafate. (9) Chronic obstructive pulmonary disease: Plan: Continue Spiriva Respimat or hospital formulary equivalent Admission and Anticipated Discharge Date Admission Date: May 07, 2022 Subjective No bowel movement yet. Reportedly much more alert and awake this morning but very drosy when seen. Patient and unable to confirm medications or when she takes them but her daughter in law in room confirms she has tolerated Percocets fine in the past. Patient falls asleep easily during our conversation so difficult to illicit whether having a new symptom of back pain but repoerdly she has had significant back pain leading up to this operation which necessitated the surgery. Current severity 5/10 without radiation down legs. Review of Systems Review of Systems: All systems reviewed & are unremarkable except as noted in Subjective Physical Exam Constitutional: WD/WN, vitals as above Eyes: PERRL, conjunctivae normal, anicteric sclerae Respiratory: normal respiratory effort, lungs clear to auscultation Cardiovascular: RRR, no murmur, no edema Gastrointestinal (Abdomen): normal bowel sounds, soft, nontender, no hepatosplenomegaly Neurologic: moves all extremities (ankle and 1st toe dorsi/plantarflex 5/5 b/l equal), awake (to voice) and + confused Motor/Sensory: no sensory deficit Results & Data Results & Data ([facility]) Vital Signs (Past 12 Hours) Vital Signs Temp Pulse Resp BP Pulse Ox 05/09/22 15:37 36.4 C L 72 18 99/63 L 90 05/09/22 11:25 37.0 C 77 18 100/64 92 05/09/22 10:33 78 94/62 L 95 05/09/22 08:20 88 113/73 92 05/09/22 06:31 37.0 C 83 18 112/68 97 PG Care Time/CCT Total # of Minutes Spent Total Time Spent with Patient: Total time spent is greater than 50% in coordination of care (as documented) at patient's floor/unit and/or counseling patient: Coding Level of Care Code 61546 Subseq Hosp Care Lvl 2 Diagnoses Neurogenic claudication due to lumbar spinal stenosis M48.062 Ileus K56.7 Acute metabolic encephalopathy G93.41 Diabetes mellitus, type 2 E11.9 Depression with anxiety F41.8 TIA (transient ischemic attack) G45.9 Hypertension I10 Gastroesophageal reflux disease K21.9 Esophagitis presence: without esophagitis Chronic obstructive pulmonary disease J44.9 (1) Gastroesophageal reflux disease Esophagitis presence: without esophagitis Qualified Code(s): K21.9 - Gastro- esophageal reflux disease without esophagitis
[2022-05-09] MEDS ORDERED: POTASSIUM CHLORIDE CRTAB 20 MEQ TABCR PO STA (16:21)
[2022-05-09] MEDS: traMADol HCL 50 MG TABLET PO PRN (17:50)
[2022-05-09] MEDS: DOCUSATE SODIUM/SENNA 50/8.6MG TAB PO SCH (21:01)
[2022-05-09] MEDS: ATORVASTATIN 40 MG TAB PO SCH (21:01)
[2022-05-09] MEDS: LEVALBUTEROL HCL 0.63 MG/3 ML NEB INH PRN (22:42)
[2022-05-10] MEDS: SODIUM CHLORIDE 0.9% 1000ML 1,000 ML IV SCH ×2 (00:41→11:02)
[2022-05-10 06:59] LABS: Hematocrit (blood only) 24.1 % (37-47); Hemoglobin 7.8 g/dL (12.0-16.0); Mean Corpuscular Hemoglobin 28.9 pg (25-34); Mean Corpuscular Hgb Conc 32.4 g/dL (32-36); Mean Corpuscular Volume 89.3 fL (80-100); Mean Platelet Volume 9.1 fL (7.4-10.4); Platelet Count 295 K/uL (130-400); RDW Coefficient of Variation 16.3 % (11.5-14.5); RDW Standard Deviation 53.6 fL (36.4-46.3); White Blood Count 8.43 K/uL (4.8-10.8)
[2022-05-10 07:18] LABS: BUN Creatinine Ratio 13.5 (10-20); Calcium 8.2 mg/dl (8.5-10.1); Creatinine Clr Calc Pharmacy 94.3 ml/min; Est GFR (African American) 106.8 ml/min; Est GFR (Non-African American) 92.2 ml/min; Potassium 3.6 mmol/L (3.5-5.1)
[2022-05-10] MEDS: traMADol HCL 50 MG TABLET PO PRN ×2 (08:03→13:27)
[2022-05-10] MEDS: CHOLECALCIFEROL 1,000 UNITS 25 MCG TAB PO SCH (08:04)
[2022-05-10] MEDS: buPROPion XL 150 MG TABCR PO SCH (08:04)
[2022-05-10] MEDS: SUCRALFATE 1 GM/10 ML UDC PO SCH ×2 (08:04→17:21)
[2022-05-10] MEDS: dilTIAZem ER 180 MG CAPCR PO SCH (08:04)
[2022-05-10] MEDS: CYANOCOBALAMIN (B-12) 500 MCG TABLET PO SCH (08:05)
[2022-05-10] MEDS: PANTOprazole 40 MG TAB PO SCH (08:05)
[2022-05-10] MEDS: METOPROLOL SUCC 50MG EXT REL TAB PO SCH (08:05)
[2022-05-10] MEDS: MULTIVITAMIN TAB PO SCH (08:05)
[2022-05-10] MEDS: UMECLIDINIUM BROMIDE 62.5MCG/BLISTER 7 PUFFS/INHALER INH SCH (08:05)
[2022-05-10] MEDS: FLUTICASONE/VILANTEROL 100/25MCG 14 PUFFS/INHALER INH SCH (08:05)
[2022-05-10] MEDS: DULoxetine HCL 30 MG CAP PO SCH (08:07)
[2022-05-10] MEDS: IPRATROPIUM BROMIDE NASAL SPRAY 0.06% 15ML NAE SCH ×2 (08:07→21:18)
[2022-05-10] MEDS: INSULIN ASPART PER UNIT SC SCH ×4 (09:03→21:00)
--- NOTE | 2022-05-10 10:10 | Orthopedic Progress Note ---
Date of Service May 10, 2022 Assessment & Plan (1) Neurogenic claudication due to lumbar spinal stenosis: Plan: We will have her continue ambulation today monitor RIO output anticipate discharge home tomorrow with home health. Admission and Anticipated Discharge Date Admission Date: May 07, 2022 Subjective Back pain is controlled leg symptoms improved Physical Exam Physical Exam: Patient is in bed. She has a soft abdomen. Strength is intact. Results & Data ([facility]) Vital Signs (Past 12 Hours) Vital Signs Temp Pulse Resp BP Pulse Ox 05/10/22 07:31 36.5 C 76 16 122/73 91 05/09/22 22:44 74 20 94 05/09/22 22:12 94
--- NOTE | 2022-05-10 12:09 | Pharmacy Report ---
Pharmacy Glycemic Short Note 2 - Date of Service May 10, 2022 - Glycemic Short BSG Results (Last 24 hours): 05/09/22 05/09/22 05/10/22 17:06 20:45 06:43 Glucose 124 H POC Glucose 148 H 183 H 05/10/22 08:14 Glucose POC Glucose 181 H OUTPATIENT ANTIDIABETIC REGIMEN: * U-500 --- 80 units with breakfast, 80 units with lunch, and 65 units with dinner * HbA1C = 9.3% (04/26/22) ASSESSMENT: 05/10/22 * BSGs yesterday were [phone] mg/dL. Patient received 58 units of insulin (40 units of NPH and 18 units of bolus). * Fasting today is 181 mg/dL on fingerstick and 124 mg/dL on PRP. * Continue current regimen as BSGs are reasonably coming under control. 05/09/22 * Patient's BSGs yesterday were 84-447-880-187 mg/dL. Patient received 32 units of insulin (25 units of basal and 7 units of bolus). Patient made NPO at dinner due to lethargy and confusion. * Based upon BSGs it is clear that 25 units of basal insulin is not sufficient. Will increase to NPH 20 units BID (in-between 25 and 50 units trialed previously). * Continue Novolog. 05/08/22 * Patient's BSGs yesterday were 218/[phone] and overnight were 74-103 mg/dL. Today's BSGs are 96-108 mg/dL. * Patient received 74 units of insulin yesterday (50 units of NPH and 24 units of Novolog). * Patient was hypotensive this morning. * Will reduce basal by at least 25% (maximum of 35 units today). Plan for 15 units at breakfast due to hypotension then scale for evening. * Loosen Novolog to weight-based stress of 3 (corresponds with 40 units of basal daily). Background * Ms Robledo is a 76 y/o F with a PMH of T2DM on U-500 insulin who presents for spinal surgery. Patient did not receive any steroids in surgery. * Patient has not received insulin today. BSGs are 218-202-238 mg/dL. * Typically when hospitalized, U-500 patients require half the dose of insulin. Since patient admitted at mid-day will trial utilizing NPH. Start with 50 units (total daily dose of basal insulin for 112 units/day). * Will use tight Novolog as uncertain about patient's basal needs. 00,04 checks to ensure 24 hour coverage. PLAN FOR INPATIENT GLYCEMIC CONTROL: * Basal insulin * NPH 20 units SQ BID * Bolus insulin * NovoLog per scale ACHS or Q6hrs while NPO * Goal Range: Low 110 mg/dL - High 140 mg/dL * Correction Factor: 20 mg/dL/unit * Nutritional / Prandial insulin per carb ratio of 1 unit per 6 grams CHO consumed
[2022-05-10] MEDS: INSULIN HUMAN NPH SC SCH (17:21)
[2022-05-10] MEDS: ALBUTEROL HFA 8 GM INHALER INH PRN ×2 (17:39→23:58)
[2022-05-10] MEDS: LEVALBUTEROL HCL 0.63 MG/3 ML NEB INH PRN (19:32)
--- NOTE | 2022-05-10 20:32 | Hospitalist Progress Note ---
Date of Service May 10, 2022 Assessment & Plan (1) Neurogenic claudication due to lumbar spinal stenosis: Plan: Per primary team Will stop oxycodone for now and reduce tramadol dosing to 25-50mg. Stop sedating medications such as lorazepam PRN (although notably has not had any doses of this). DVT prph: defer to primary service. (2) Acute metabolic encephalopathy: Plan: Resolved. Secondary to doxepin inappropriately on med rec put in as a morning medication rather than at night. Now resolved with holding the dose the morning. Will prescribe at a reduced dose tonight at 50mg PO HS. Can re-introduce oxycodone for pain control as doubtful opiates were causing sedation. (3) Postoperative anemia: Plan: No epigastric pain or black stool. Hgb 7.8 from 12.5 pre-operatively. Relatively stable over last few days though between 8.2-9.1 so unclear how much is dilutional as she has been getting IV fluids. Repeat CBC tomorrow with iron, B12 and folate studies. Stop IV fluids now patient is eating and drinking well. (4) Hypoxia: Plan: Continue incentive spirometry. Will get CXR in AM if remains hypoxic overnight. (5) Ileus: Plan: Resolved. BM today. (6) Diabetes mellitus, type 2: Plan: Latest outpatient A1C:9.3 from March. Pharmacy consulted for glycemic control (7) Depression with anxiety: Plan: resume her home medication (8) TIA (transient ischemic attack): Plan: clopidogrel on hold. will defer to primary team when to restart. continue BB AND STATIN. ARB on hold due to relative hypotension (9) Hypertension: Plan: Continue on reduced dose diltiazem and metoprolol. Continue to hold spironolactone and losartan - likely can restart these tomorrow if BP improves. (10) Gastroesophageal reflux disease: Plan: Dexlansoprazole switched to pantoprazole per hospital pharmacy. Continue Carafate. (11) Chronic obstructive pulmonary disease: Plan: No acute exacerbation. Continue Spiriva Respimat or hospital formulary equivalent Plan: Thank you for the consult. Would recommend patient stays in the hospital currently to make sure anemia is stable and reintroduction of her blood pressure medication and due to ongoing hypoxia. Admission and Anticipated Discharge Date Admission Date: May 07, 2022 Subjective Back pain much improved. Much more awake and alert today after not receiving doxepin this morning. Tolerating tramadol although not completely resolving pain, currently 5/10. Up in chair today. Eating and drinking well. Review of Systems Review of Systems: All systems reviewed & are unremarkable except as noted in Subjective Physical Exam Constitutional: WD/WN, vitals as above Eyes: PERRL, conjunctivae normal, anicteric sclerae Respiratory: normal respiratory effort, lungs clear to auscultation Cardiovascular: RRR, no murmur, no edema Gastrointestinal (Abdomen): normal bowel sounds, soft, nontender, no hepatosplenomegaly Neurologic: moves all extremities (ankle and 1st toe dorsi/plantarflex 5/5 b/l equal), awake (to voice) and + confused Motor/Sensory: no sensory deficit Results & Data Results & Data ([facility]) Vital Signs (Past 12 Hours) Vital Signs Temp Pulse Pulse Resp BP Pulse Ox 05/10/22 19:33 74 24 94 05/10/22 17:39 78 18 93 05/10/22 15:13 36.6 C 71 16 115/72 95 PG Care Time/CCT Total # of Minutes Spent Total Time Spent with Patient: Total time spent is greater than 50% in coordination of care (as documented) at patient's floor/unit and/or counseling patient: Coding Level of Care Code 89963 Subseq Hosp Care Lvl 2 Diagnoses Neurogenic claudication due to lumbar spinal stenosis M48.062 Acute metabolic encephalopathy G93.41 Ileus K56.7 Diabetes mellitus, type 2 E11.9 Depression with anxiety F41.8 TIA (transient ischemic attack) G45.9 Hypertension I10 Gastroesophageal reflux disease K21.9 Esophagitis presence: without esophagitis Chronic obstructive pulmonary disease J44.9 Postoperative anemia D64.9 Hypoxia R09.02 (1) Gastroesophageal reflux disease Esophagitis presence: without esophagitis Qualified Code(s): K21.9 - Gastro-esophageal reflux disease without esophagitis
[2022-05-10] MEDS: DOXEPIN HCL 50 MG CAPSULE PO SCH (21:18)
[2022-05-10] MEDS: ATORVASTATIN 40 MG TAB PO SCH (21:19)
[2022-05-10] MEDS: DOCUSATE SODIUM/SENNA 50/8.6MG TAB PO SCH (21:21)
--- NOTE | 2022-05-11 08:27 | Orthopedic Progress Note ---
Date of Service May 11, 2022 Assessment & Plan (1) Neurogenic claudication due to lumbar spinal stenosis: Plan: At this time we will continue physical therapy as tolerated. She is undergoing evaluation for her shortness of breath. Hopefully she will be ready for d ischarge in next few days. Admission and Anticipated Discharge Date Admission Date: May 07, 2022 Subjective Patient's back pain is controlled leg symptoms improved. She struggling with some shortness of breath today. She is tolerating physical therapy. Physical Exam Physical Exam: On exam she is good strength testing. She is alert and oriented. Results & Data ([facility]) Vital Signs (Past 12 Hours) Vital Signs Temp Pulse Resp BP Pulse Ox 05/11/22 07:07 36.6 C 84 20 163/89 H 90 05/10/22 23:59 74 22 92 05/10/22 23:16 36.8 C 74 20 133/81 96
[2022-05-11 08:47] LABS: Hematocrit (blood only) 23.9 % (37-47); Hemoglobin 7.9 g/dL (12.0-16.0); Mean Corpuscular Hemoglobin 28.9 pg (25-34); Mean Corpuscular Hgb Conc 33.1 g/dL (32-36); Mean Corpuscular Volume 87.5 fL (80-100); Mean Platelet Volume 9.2 fL (7.4-10.4); Nucleated RBC # (auto) 0.02 K/uL (0-0); Nucleated RBC % (auto) 0.2 %; Platelet Count 361 K/uL (130-400); RDW Coefficient of Variation 16.2 % (11.5-14.5); Red Blood Count 2.73 M/uL (4.2-5.4); White Blood Count 10.06 K/uL (4.8-10.8)
[2022-05-11] MEDS: PANTOprazole 40 MG TAB PO SCH (08:49)
[2022-05-11] MEDS: MULTIVITAMIN TAB PO SCH (08:49)
[2022-05-11] MEDS: DULoxetine HCL 30 MG CAP PO SCH (08:49)
[2022-05-11] MEDS: METOPROLOL SUCC 50MG EXT REL TAB PO SCH (08:49)
[2022-05-11] MEDS: CYANOCOBALAMIN (B-12) 500 MCG TABLET PO SCH (08:49)
[2022-05-11] MEDS: CHOLECALCIFEROL 1,000 UNITS 25 MCG TAB PO SCH (08:49)
[2022-05-11] MEDS: dilTIAZem ER 120 MG CAPCR PO SCH (08:50)
[2022-05-11] MEDS: SUCRALFATE 1 GM/10 ML UDC PO SCH ×2 (08:50→18:22)
[2022-05-11] MEDS: SPIRONOLACTONE 25 MG TAB PO SCH (08:50)
[2022-05-11] MEDS: dilTIAZem ER 180 MG CAPCR PO SCH (08:50)
[2022-05-11] MEDS: buPROPion XL 150 MG TABCR PO SCH (08:50)
[2022-05-11] MEDS: IPRATROPIUM BROMIDE NASAL SPRAY 0.06% 15ML NAE SCH ×2 (08:51→21:17)
[2022-05-11] MEDS: UMECLIDINIUM BROMIDE 62.5MCG/BLISTER 7 PUFFS/INHALER INH SCH (08:51)
[2022-05-11] MEDS: FLUTICASONE/VILANTEROL 100/25MCG 14 PUFFS/INHALER INH SCH (08:51)
[2022-05-11] MEDS: INSULIN HUMAN NPH SC SCH ×2 (08:54→18:46)
[2022-05-11] MEDS: INSULIN ASPART PER UNIT SC SCH ×4 (08:57→23:19)
[2022-05-11 09:03] LABS: BUN Creatinine Ratio 14.3 (10-20); Calcium 8.5 mg/dl (8.5-10.1); Creatinine Clr Calc Pharmacy 100.1 ml/min; Est GFR (African American) 108.9 ml/min; Iron 15 mcg/dl (35-150); Potassium 3.7 mmol/L (3.5-5.1); Total Iron Binding Cap Calc 280 mcg/dl (250-450); Transferrin (FE) Percent Satur 5 % (15-50); Unsaturated Iron Binding Cap 265 mcg/dl (155-355)
--- NOTE | 2022-05-11 09:12 | XRay Report ---
XR chest 1V portable CLINICAL HISTORY: hypoxia. COMPARISON STUDY: 04/17/2022 TECHNIQUE: 1 view of the chest FINDINGS: Single frontal view of the chest demonstrates the cardiomediastinal silhouette to be within normal li mits. Permanent cardiac pacer is in place. Compared to previous examination, there has been interval development of asymmetric alveolar opacities involving the right lower lobe medially. Posterior infil trate cannot be excluded. Left hemithorax is clear. There is no evidence for pleural effusion. There is evidence for very mild central vascular congestion which is also greater on the right. There is no acute osseous pathology. IMPRESSION: 1. Interval development of asymmetric alveolar opacities involving the right lower lobe medially susp icious for posterior pneumonic infiltrate. Follow-up PA and lateral radiographs would be helpful for further evaluation. ACT 112: Negative or not required by law. Electronically signed by: Mateo Robin M.D. 05/11/2022 9:11 AM
[2022-05-11 09:32] LABS: Folate (Folic Acid) 11.25 ng/ml (>5.38)
[2022-05-11] MEDS ORDERED: FUROSEMIDE 40 MG/4 ML VIAL IV STA (12:05)
[2022-05-11] MEDS: traMADol HCL 50 MG TABLET PO PRN ×2 (13:01→21:17)
--- NOTE | 2022-05-11 19:34 | Hospitalist Progress Note ---
Date of Service May 11, 2022 Assessment & Plan (1) Neurogenic claudication due to lumbar spinal stenosis: Plan: Per primary team DVT prph: defer to primary service. Reintroduced oxycodone without worsening mentation yesterday but would use tramadol initially for pain. (2) Fall: Plan: Suspect due to leg weakness from deconditioning from operation. ?need for rehabilitation on discharge. No suspected new injuries from the fall but will defer to Dr Hardy regarding reimaging back since she fell on her sarcral area/ (3) Acute metabolic encephalopathy: Plan: Resolved. Secondary to doxepin inappropriately on med rec put in as a morning medication rather than at night. Continue doxepin 50mg HS (4) Postoperative anemia: Plan: Hgb stable for iron deficient with transferrin sats 5%. Recommend starting ferrous sulphate 325mg PO QOD on discharge - will avoid for now given recent post op ileus. (5) Hypoxia: Plan: CXR concerning for pulmonary edema which is not surprising given continuous IV fluids post operatively for a few days due to drowsy state and holding spironolactone due to hypotension. One dose of Lasix with spironolactone this morning appears to have resolved this. Aim O2 sats > 90% (6) Ileus: Plan: Resolved. (7) Diabetes mellitus, type 2: Plan: Latest outpatient A1C:9.3 from March. Pharmacy consulted for glycemic control (8) Depression with anxiety: Plan: resume her home medication (9) TIA (transient ischemic attack): Plan: clopidogrel on hold. will defer to primary team when to restart. continue BB AND STATIN. ARB on hold due to relative hypotension (10) Hypertension: Plan: Continue on her usual dose of diltiazem, metoprolol and spironolactone. Losartan remains on hold - can likely resume on discharge if not hypotensive however. (11) Gastroesophageal reflux disease: Plan: Dexlansoprazole switched to pantoprazole per hospital pharmacy. Continue Carafate. (12) Chronic obstructive pulmonary disease: Plan: No acute exacerbation. Continue Spiriva Respimat or hospital formulary equivalent Plan: Thank you for the consult. Would recommend patient stays in the hospital due to current fall as discussed with Dr Hardy. If remains stable likely medically she could go on Friday. Admission and Anticipated Discharge Date Admission Date: May 07, 2022 Subjective Patient had a fall prior to being seen. had tried to help her to the bathroom. After micturition she had got up herself and while her tried to clear up some urine on the floor she lost her balance and felt weak in her legs and fell backwards. She denies any chest pain, shortness of breath, lightheadedness prior to falling - just weakness in her legs. She did not lose consciousness or hit her head. She fell onto her back but reports this pain is no worse than prior to falling. Discussed with Dr Hardy and no plans for reimaging back at this time. Shortness of breath much improved after lasix and spironolactone given this morning. Review of Systems Review of Systems: All systems reviewed & are unremarkable except as noted in Subjective Physical Exam Constitutional: WD/WN, vitals as above Respiratory: normal respiratory effort Auscultation: + crackles (bibasal); no wheezes Cardiovascular: RRR, no murmur, no edema Gastrointestinal (Abdomen): normal bowel sounds, soft, nontender, no hepatosplenomegaly Musculoskeletal: Internal/external rotation of both hips without groin pain. Neurologic: moves all extremities (ankle and 1st toe dorsi/plantarflex 5/5 b/l equal) and awake; not confused Motor/Sensory: no sensory deficit Results & Data Results & Data ([facility]) Vital Signs (Past 12 Hours) Vital Signs Temp Pulse Resp BP Pulse Ox 05/11/22 14:43 37.1 C 91 H 18 151/81 H 93 PG Care Time/CCT Total # of Minutes Spent Total Time Spent with Patient: Total time spent is greater than 50% in coordination of care (as documented) at patient's floor/unit and/or counseling patient: Coding Level of Care Code 46802 Subseq Hosp Care Lvl 2 Diagnoses Neurogenic claudication due to lumbar spinal stenosis M48.062 Acute metabolic encephalopathy G93.41 Postoperative anemia D64.9 Hypoxia R09.02 Ileus K56.7 Diabetes mellitus, type 2 E11.9 Depression with anxiety F41.8 TIA (transient ischemic attack) G45.9 Hypertension I10 Gastroesophageal reflux disease K21.9 Esophagitis presence: without esophagitis Chronic obstructive pulmonary disease J44.9 Fall W19.XXXA (1) Gastroesophageal reflux disease Esophagitis presence: without esophagitis Qualified Code(s): K21.9 - Gastro-e sophageal reflux disease without esophagitis
[2022-05-11] MEDS: DOCUSATE SODIUM/SENNA 50/8.6MG TAB PO SCH (21:17)
[2022-05-11] MEDS: DOXEPIN HCL 50 MG CAPSULE PO SCH (21:17)
[2022-05-11] MEDS: ATORVASTATIN 40 MG TAB PO SCH (21:17)
[2022-05-12] MEDS: SUCRALFATE 1 GM/10 ML UDC PO SCH ×2 (08:10→17:32)
[2022-05-12] MEDS: traMADol HCL 50 MG TABLET PO PRN (08:10)
[2022-05-12] MEDS: CYANOCOBALAMIN (B-12) 500 MCG TABLET PO SCH (08:11)
[2022-05-12] MEDS: CHOLECALCIFEROL 1,000 UNITS 25 MCG TAB PO SCH (08:11)
[2022-05-12] MEDS: SPIRONOLACTONE 25 MG TAB PO SCH (08:11)
[2022-05-12] MEDS: MULTIVITAMIN TAB PO SCH (08:11)
[2022-05-12] MEDS: METOPROLOL SUCC 50MG EXT REL TAB PO SCH (08:12)
[2022-05-12] MEDS: PANTOprazole 40 MG TAB PO SCH (08:12)
[2022-05-12] MEDS: dilTIAZem ER 120 MG CAPCR PO SCH (08:13)
[2022-05-12] MEDS: buPROPion XL 150 MG TABCR PO SCH (08:13)
[2022-05-12] MEDS: dilTIAZem ER 180 MG CAPCR PO SCH (08:13)
[2022-05-12] MEDS: FLUTICASONE/VILANTEROL 100/25MCG 14 PUFFS/INHALER INH SCH (08:14)
[2022-05-12] MEDS: IPRATROPIUM BROMIDE NASAL SPRAY 0.06% 15ML NAE SCH ×2 (08:14→20:36)
[2022-05-12] MEDS: UMECLIDINIUM BROMIDE 62.5MCG/BLISTER 7 PUFFS/INHALER INH SCH (08:14)
[2022-05-12] MEDS: DULoxetine HCL 30 MG CAP PO SCH (08:14)
[2022-05-12] MEDS: INSULIN HUMAN NPH SC SCH ×2 (08:15→17:32)
[2022-05-12] MEDS: INSULIN ASPART PER UNIT SC SCH ×4 (08:19→21:52)
[2022-05-12 08:25] LABS: Basophils # (auto) 0.02 K/uL (0-0.2); Basophils % (auto) 0.2 %; Eosinophils # (auto) 0.28 K/uL (0-0.5); Eosinophils % (auto) 3.1 %; Hematocrit (blood only) 23.3 % (37-47); Hemoglobin 7.6 g/dL (12.0-16.0); Immature Granulocytes % (auto) 1.1 %; Lymphocytes # (auto) 1.54 K/uL (1.2-3.4); Lymphocytes % (auto) 17.2 %; Mean Corpuscular Hemoglobin 28.7 pg (25-34); Mean Corpuscular Hgb Conc 32.6 g/dL (32-36); Mean Corpuscular Volume 87.9 fL (80-100); Monocytes # (auto) 0.85 K/uL (0.11-0.59); Monocytes % (auto) 9.5 %; Neutrophils # (auto) 6.15 K/uL (1.4-6.5); Neutrophils % (auto) 68.9 %; Platelet Count 394 K/uL (130-400); RDW Coefficient of Variation 16.3 % (11.5-14.5); RDW Standard Deviation 53.1 fL (36.4-46.3); Red Blood Count 2.65 M/uL (4.2-5.4); White Blood Count 8.94 K/uL (4.8-10.8)
[2022-05-12 08:43] LABS: BUN Creatinine Ratio 18.2 (10-20); Calcium 8.6 mg/dl (8.5-10.1); Creatinine Clr Calc Pharmacy 89.2 ml/min; Est GFR (African American) 104.9 ml/min; Est GFR (Non-African American) 90.5 ml/min; Potassium 3.5 mmol/L (3.5-5.1)
[2022-05-12 09:13] LABS: RBC Morphology Unremarkable
[2022-05-12] MEDS ORDERED: POTASSIUM CHLORIDE CRTAB 20 MEQ TABCR PO STA (09:56)
[2022-05-12] MEDS ORDERED: FUROSEMIDE 40 MG/4 ML VIAL IV ONE (09:56)
--- NOTE | 2022-05-12 10:02 | Hospitalist Progress Note ---
Date of Service May 12, 2022 Assessment & Plan (1) Neurogenic claudication due to lumbar spinal stenosis: Plan: Per primary team DVT prph: defer to primary service. (2) Fall: Plan: Occurred 05/11 Suspect due to leg weakness from deconditioning from operation. ?need for rehabilitation on discharge, repeat PT pending. No suspected new injuries from the fall but will defer to Dr Hardy regarding reimaging back since she fell on her sacral area. (3) Acute metabolic encephalopathy: Plan: Resolved. Secondary to doxepin inappropriately on med rec put in as a morning medication rather than at night. Continue doxepin 50mg HS No recurrence with adding oxycodone back to pain regimen therefore ok to continue this cautious due to recent fall. (4) Postoperative anemia: Plan: Hgb stable for iron deficient with transferrin sats 5%. Recommend starting ferrous sulphate 325mg PO QOD on discharge - will avoid for now given recent post op ileus. (5) Hypoxia: Plan: Secondary to hypervolemia due to IV fluids given while drowsy and holding spironolactone due to hypotension. Improved significantly with IV lasix given yesterday. Will repeat again today as shortness of breath not back to baseline despite being on room air. Aim O2 sats > 90% (6) Ileus: Plan: Resolved. (7) Diabetes mellitus, type 2: Plan: Latest outpatient A1C:9.3 from March. Pharmacy consulted for glycemic control (8) Depression with anxiety: Plan: resume her home medication (9) TIA (transient ischemic attack): Plan: clopidogrel on hold. will defer to primary team when to restart. continue BB AND STATIN. ARB on hold due to relative hypotension (10) Hypertension: Plan: Continue on her usual dose of diltiazem, metoprolol and spironolactone. Losartan remains on hold - can likely resume on discharge if not hypotensive however. (11) Gastroesophageal reflux disease: Plan: Dexlansoprazole switched to pantoprazole per hospital pharmacy. Continue Carafate. (12) Chronic obstructive pulmonary disease: Plan: No acute exacerbation. Continue Spiriva Respimat or hospital formulary equivalent Plan: Thank you for the consult, we will continue to follow. Admission and Anticipated Discharge Date Admission Date: May 07, 2022 Subjective Feeling increasingly stiff today. Pain severity mildly worse at 7/10. No radiation down legs. No groin pain. Shortness of breath much improved following Lasix yesterday. Currently on room air. No groin pain. No confusion. Orientated x3. Review of Systems Review of Systems: All systems reviewed & are unremarkable except as noted in Subjective Physical Exam Constitutional: WD/WN, vitals as above Respiratory: normal respiratory effort Auscultation: + crackles (bibasal); no wheezes Cardiovascular: RRR, no murmur, no edema Gastrointestinal (Abdomen): normal bowel sounds, soft, nontender, no hepatosplenomegaly Musculoskeletal: Internal/external rotation of both hips without groin pain. Neurologic: moves all extremities (ankle and 1st toe dorsi/plantarflex 5/5 b/l equal) and awake; not confused Motor/Sensory: no sensory deficit Results & Data Results & Data ([facility]) Vital Signs (Past 12 Hours) Vital Signs Temp Pulse Resp BP Pulse Ox 05/12/22 07:15 36.8 C 67 16 122/74 94 05/11/22 22:04 93 05/11/22 22:03 36.6 C 75 18 100/58 L 82 L PG Care Time/CCT Total # of Minutes Spent Total Time Spent with Patient: Total time spent is greater than 50% in coordination of care (as documented) at patient's floor/unit and/or counseling patient: Coding Level of Care Code 54361 Subseq Hosp Care Lvl 2 Diagnoses Neurogenic claudication due to lumbar spinal stenosis M48.062 Fall W19.XXXA Acute metabolic encephalopathy G93.41 Postoperative anemia D64.9 Hypoxia R09.02 Ileus K56.7 Diabetes mellitus, type 2 E11.9 Depression with anxiety F41.8 TIA (transient ischemic attack) G45.9 Hypertension I10 Gastroesophageal reflux disease K21.9 Esophagitis presence: without esophagitis Chronic obstructive pulmonary disease J44.9 (1) Gastroesophageal reflux disease Esophagitis presence: without esophagitis Qualified Code(s): K21.9 - Gastro- esophageal reflux disease without esophagitis
--- NOTE | 2022-05-12 10:30 | Orthopedic Progress Note ---
Date of Service May 12, 2022 Assessment & Plan (1) Neurogenic claudication due to lumbar spinal stenosis: Plan: At this time we will continue physical therapy DC her drain change her dressing today and anticipate discharge home tomorrow. Admission and Anticipated Discharge Date Admission Date: May 07, 2022 Subjective Patient is complaining mostly of back pain. Leg symptoms are improved. Her shortness of breath is also resolving. Physical Exam Physical Exam: On exam she is good strength testing. She appears comfortable. Results & Data ([facility]) Vital Signs (Past 12 Hours) Vital Signs Temp Pulse Resp BP Pulse Ox 05/12/22 07:15 36.8 C 67 16 122/74 94
--- NOTE | 2022-05-12 12:19 | Pharmacy Report ---
Pharmacy Glycemic Short Note 2 - Date of Service May 12, 2022 - Glycemic Short BSG Results (Last 24 hours): 05/11/22 05/11/22 05/12/22 17:04 20:50 07:46 Glucose POC Glucose 92 124 H 113 H 05/12/22 05/12/22 08:03 12:08 Glucose 109 H POC Glucose 149 H OUTPATIENT ANTIDIABETIC REGIMEN: * U-500 --- 80 units with breakfast, 80 units with lunch, and 65 units with dinner * HbA1C = 9.3% (04/26/22) ASSESSMENT: 05/12/22 * Blood sugar dropped to 92mg/dl prior to dinner yesterday, changed NPH to scale to prevent hypoglycemia * Euglycemic, no further changes 05/10/22 * BSGs yesterday were [phone] mg/dL. Patient received 58 units of insulin (40 units of NPH and 18 units of bolus). * Fasting today is 181 mg/dL on fingerstick and 124 mg/dL on PRP. * Continue current regimen as BSGs are reasonably coming under control. 05/09/22 * Patient's BSGs yesterday were [phone] mg/dL. Patient received 32 units of insulin (25 units of basal and 7 units of bolus). Patient made NPO at dinner due to lethargy and confusion. * Based upon BSGs it is clear that 25 units of basal insulin is not sufficient. Will increase to NPH 20 units BID (in-between 25 and 50 units trialed previously). * Continue Novolog. 05/08/22 * Patient's BSGs yesterday were [phone] and overnight were 74-103 mg/dL. Today's BSGs are 96-108 mg/dL. * Patient received 74 units of insulin yesterday (50 units of NPH and 24 units of Novolog). * Patient was hypotensive this morning. * Will reduce basal by at least 25% (maximum of 35 units today). Plan for 15 units at breakfast due to hypotension then scale for evening. * Loosen Novolog to weight-based stress of 3 (corresponds with 40 units of basal daily). Background * Ms Robledo is a 76 y/o F with a PMH of T2DM on U-500 insulin who presents for spinal surgery. Patient did not receive any steroids in surgery. * Patient has not received insulin today. BSGs are 218-202-238 mg/dL. * Typically when hospitalized, U-500 patients require half the dose of insulin. Since patient admitted at mid-day will trial utilizing NPH. Start with 50 units (total daily dose of basal insulin for 112 units/day). * Will use tight Novolog as uncertain about patient's basal needs. 00,04 checks to ensure 24 hour coverage. PLAN FOR INPATIENT GLYCEMIC CONTROL: * Basal insulin * NPH 15-20 units SQ BID with meals (15 units for BSG < 120, 20 units for BSG 120 or greater) * Bolus insulin * NovoLog per scale ACHS or Q6hrs while NPO * Goal Range: Low 110 mg/dL - High 140 mg/dL * Correction Factor: 20 mg/dL/unit * Nutritional / Prandial insulin per carb ratio of 1 unit per 6 grams CHO consumed
[2022-05-12] MEDS: ATORVASTATIN 40 MG TAB PO SCH (20:35)
[2022-05-12] MEDS: DOXEPIN HCL 50 MG CAPSULE PO SCH (20:36)
[2022-05-12] MEDS: DOCUSATE SODIUM/SENNA 50/8.6MG TAB PO SCH (20:39)
[2022-05-13] MEDS: traMADol HCL 50 MG TABLET PO PRN (07:43)
[2022-05-13 07:47] LABS: Hematocrit (blood only) 22.7 % (37-47); Hemoglobin 7.5 g/dL (12.0-16.0); Mean Corpuscular Hemoglobin 28.3 pg (25-34); Mean Corpuscular Volume 85.7 fL (80-100); Mean Platelet Volume 9.6 fL (7.4-10.4); Nucleated RBC # (auto) 0.02 K/uL (0-0); Nucleated RBC % (auto) 0.2 %; Platelet Count 413 K/uL (130-400); RDW Coefficient of Variation 16.3 % (11.5-14.5); RDW Standard Deviation 51.3 fL (36.4-46.3); Red Blood Count 2.65 M/uL (4.2-5.4); White Blood Count 10.03 K/uL (4.8-10.8)
[2022-05-13] MEDS: SUCRALFATE 1 GM/10 ML UDC PO SCH ×2 (07:47→17:17)
--- NOTE | 2022-05-13 08:06 | Hospitalist Progress Note ---
Date of Service May 13, 2022 Assessment & Plan (1) Neurogenic claudication due to lumbar spinal stenosis: Plan: s/p #1 removal of posterior instrumentation L4-L5. #2 exploration of fusion L4- L5. #3 lumbar decompression bilateral medial facetectomies and foraminotomies L1-L2, L2-3 and L3-4. #4 posterior spinal fusion L2-L3 L3-L4. #5 placement posterior instrumentation L2-L5. #6 interbody fusion L2-L3 L3-L4. #7 placement of Spira 12 x 26 mm cage at L2-L3 and 13 x 26 at L3-L4. #8 placement locally harvested morselized autograft in the posterior gutters. #9 placement infuse collagen sponge, master graft in the posterior lateral gutters and I factor and interbody space with Dr Hardy on 05/07/22. EBL 350cc PT/OT/pain management/bowel regimen/DVT prophylaxis per primary service Hgb 7.5, iron studies w/ iron 15, trans sat5%. Will order dose IV Venofer while inpatient acute blood loss anemia from surgery/RIO drain output/IV fluids perioperative period Remains on 3L NC, will check CXR as reportedly on room air yesterday b/l effusions, no opacity holding off on IVF but appears slightly dry cramping reported/prior low mag --> low again 1.4 and IV replacement ordered continue incentive spirometer Monitor labs in AM/additional venofer for AM Disposition per primary service (2) Fall: Plan: Occurred 05/11 Suspect due to leg weakness from deconditioning from operation. ?need for rehabilitation on discharge, repeat PT pending. No suspected new injuries from the fall but will defer to Dr Hardy regarding reimaging back since she fell on her sacral area. messaged Dr Hardy regarding pain, defer on repeat imaging to him (3) Acute metabolic encephalopathy: Plan: Resolved. Secondary to doxepin inappropriately on med rec put in as a morning medication rather than at night. Continue doxepin 50mg HS No recurrence with adding oxycodone back to pain regimen therefore ok to continue this cautious due to recent fall. No increased confusion 05/13 (4) Postoperative anemia: Plan: Hgb stable for iron deficient with transferrin sats 5%. Recommend starting ferrous sulphate 325mg PO QOD on discharge - will avoid for now given recent post op ileus. Will order dose IV Venofer while inpatient, repeat in AM (5) Hypoxia: Plan: Secondary to hypervolemia due to IV fluids given while drowsy and holding spironolactone due to hypotension. Improved significantly with IV lasix given day prior and was repeated 05/12 as SOB not back to baseline Repeat CXR 2 view today Also will order dose IV Venofer today, IV lasix if needed Titrate supplemental O2 to maintain saturations (6) Ileus: Plan: Resolved. mag also low, IV replacement ordered which should also assist with bowel movement (7) Diabetes mellitus, type 2: Plan: Latest outpatient A1C:9.3 from March. Pharmacy consulted for glycemic control (8) Depression with anxiety: Plan: resume her home medication (9) TIA (transient ischemic attack): Plan: clopidogrel on hold. will defer to primary team when to restart. continue BB AND STATIN. ARB on hold due to relative hypotension/orthostatic hypotension? (10) Hypertension: Plan: Continue on her usual dose of diltiazem, metoprolol and spironolactone. Losartan remains on hold (given doses of lasix IV days past) - can likely resume on discharge if not hypotensive however. BP 120/72 -- checking orthostatic vitals given dizziness, but could be from anemia (11) Gastroesophageal reflux disease: Plan: Dexlansoprazole switched to pantoprazole per hospital pharmacy. Continue Carafate. (12) Chronic obstructive pulmonary disease: Plan: No acute exacerbation. Continue Spiriva Respimat or hospital formulary equivalent Plan: Thank you for the consult, we will continue to follow. Admission and Anticipated Discharge Date Admission Date: May 07, 2022 Subjective Patient evaluated this morning. Feels whipped out. Lightheaded with therapy this morning. Holding off further IVF as getting mag (reported cramping/generalized malaise). States eating/drinking but having nausea. No vomiting. Will give phenergan lower dose and monitor. Take motegrity at home, no one to bring. Increased pain incisional and lower back. Fighting/not getting along with and states she will be going home alone. Discussed with Dr Hardy and will plan to monitor overnight/replacement/monitor. She states she is not short of breath like in days past, but remains on supplemental oxygen. Currently getting Venofer and magnesium. Question/concerns addressed at this time. Review of Systems Review of Systems: All systems reviewed & are unremarkable except as noted in HPI & below Physical Exam Physical Exam: General: WN/WN female laying flat in bed, NAD HEENT: mm slightly dry, trachea midline without deviation, pupils equal and reactive Resp: CTAB, diminished in the bases, bibasilar crackles, on 3L NC CV: RRR, no m/r/g, no calf edema/tenderness, cap refill wnl GI: +BS, soft, nontender MSK/Neuro: increased pain with sitting up, dressing c/d/i, drain in place, equal strength testing b/l LE dorsiflexion/plantar flexion, no focal deficit Psych: AOx3, cooperative Neurologic: Motor/Sensory: no sensory deficit Results & Data Results & Data ([facility]) Vital Signs (Past 12 Hours) Vital Signs Temp Pulse Resp BP Pulse Ox 05/13/22 07:40 36.6 C 73 16 118/72 95 05/12/22 21:56 36.7 C 75 19 126/80 95 Laboratory Results 05/13/22 05/13/22 05/13/22 Range/Units 08:28 06:39 06:39 WBC (4.8-10.8) K/uL RBC (4.2-5.4) M/uL Hgb (12.0-16.0) g/dL Hct (37-47) % MCV (80-100) fL MCH (25-34) pg MCHC (32-36) g/dL RDW Std Deviation (36.4-46.3) fL RDW Coeff of Rian (11.5-14.5) % Plt Count (130-400) K/uL MPV (7.4-10.4) fL Absolute Nucleated RBC (0-0) K/uL Nucleated RBC % (auto) % Sodium 129 L (136-145) mmol/L Potassium 3.9 (3.5-5.1) mmol/L Chloride 95 L (98-107) mmol/L Carbon Dioxide 23 (21-32) mmol/L Anion Gap 11 (3-11) BUN 10 (6-23) mg/dl Creatinine 0.54 L (0.6-1.2) mg/dl Est Cr Clr Drug Dosing 90.8 ml/min Est GFR ( Amer) 105.5 ml/min Est GFR (Non-Af Amer) 91.0 ml/min BUN/Creatinine Ratio 18.5 (10-20) Glucose 112 H (70-99(Fasting)) mg/dl POC Glucose 112 H (70-99) mg/dl Calcium 8.0 L (8.5-10.1) mg/dl Magnesium 1.4 L (1.7-2.4) mg/dl 05/13/22 05/12/22 05/12/22 Range/Units 06:39 21:43 17:19 WBC 10.03 (4.8-10.8) K/uL RBC 2.65 L (4.2-5.4) M/uL Hgb 7.5 L (12.0-16.0) g/dL Hct 22.7 L (37-47) % MCV 85.7 (80-100) fL MCH 28.3 (25-34) pg MCHC 33.0 (32-36) g/dL RDW Std Deviation 51.3 H (36.4-46.3) fL RDW Coeff of Rian 16.3 H (11.5-14.5) % Plt Count 413 H (130-400) K/uL MPV 9.6 (7.4-10.4) fL Absolute Nucleated RBC 0.02 H (0-0) K/uL Nucleated RBC % (auto) 0.2 % Sodium (136-145) mmol/L Potassium (3.5-5.1) mmol/L Chloride (98-107) mmol/L Carbon Dioxide (21-32) mmol/L Anion Gap (3-11) BUN (6-23) mg/dl Creatinine (0.6-1.2) mg/dl Est Cr Clr Drug Dosing ml/min Est GFR ( Amer) ml/min Est GFR (Non-Af Amer) ml/min BUN/Creatinine Ratio (10-20) Glucose (70-99(Fasting)) mg/dl POC Glucose 114 H 146 H (70-99) mg/dl Calcium (8.5-10.1) mg/dl Magnesium (1.7-2.4) mg/dl 05/12/22 Range/Units 12:08 WBC (4.8-10.8) K/uL RBC (4.2-5.4) M/uL Hgb (12.0-16.0) g/dL Hct (37-47) % MCV (80-100) fL MCH (25-34) pg MCHC (32-36) g/dL RDW Std Deviation (36.4-46.3) fL RDW Coeff of Rian (11.5-14.5) % Plt Count (130-400) K/uL MPV (7.4-10.4) fL Absolute Nucleated RBC (0-0) K/uL Nucleated RBC % (auto) % Sodium (136-145) mmol/L Potassium (3.5-5.1) mmol/L Chloride (98-107) mmol/L Carbon Dioxide (21-32) mmol/L Anion Gap (3-11) BUN (6-23) mg/dl Creatinine (0.6-1.2) mg/dl Est Cr Clr Drug Dosing ml/min Est GFR ( Amer) ml/min Est GFR (Non-Af Amer) ml/min BUN/Creatinine Ratio (10-20) Glucose (70-99(Fasting)) mg/dl POC Glucose 149 H (70-99) mg/dl Calcium (8.5-10.1) mg/dl Magnesium (1.7-2.4) mg/dl PG Care Time/CCT Total # of Minutes Spent Total Time Spent with Patient: Total time spent is greater than 50% in coordination of care (as documented) at patient's floor/unit and/or counseling patient: Coding Level of Care Code 83161 Subseq Hosp Care Lvl 3 Diagnoses Neurogenic claudication due to lumbar spinal stenosis M48.062 Fall W19.XXXA Acute metabolic encephalopathy G93.41 Postoperative anemia D64.9 Hypoxia R09.02 Ileus K56.7 Diabetes mellitus, type 2 E11.9 Depression with anxiety F41.8 TIA (transient ischemic attack) G45.9 Hypertension I10 Gastroesophageal reflux disease K21.9 Esophagitis presence: without esophagitis Chronic obstructive pulmonary disease J44.9 (1) Gastroesophageal reflux disease Esophagitis presence: without esophagitis Qualified Code(s): K21.9 - Gastro- esophageal reflux disease without esophagitis
[2022-05-13 08:09] LABS: BUN Creatinine Ratio 18.5 (10-20); Creatinine Clr Calc Pharmacy 90.8 ml/min; Est GFR (African American) 105.5 ml/min; Potassium 3.9 mmol/L (3.5-5.1)
[2022-05-13] MEDS ORDERED: IRON SUCROSE 300 MG in SODIUM CHLORIDE 0.9% 250 ML IV ONE (08:30)
[2022-05-13] MEDS: UMECLIDINIUM BROMIDE 62.5MCG/BLISTER 7 PUFFS/INHALER INH SCH (09:00)
[2022-05-13] MEDS: FLUTICASONE/VILANTEROL 100/25MCG 14 PUFFS/INHALER INH SCH (09:00)
[2022-05-13] MEDS: dilTIAZem ER 120 MG CAPCR PO SCH (09:01)
[2022-05-13] MEDS: LOSARTAN POTASSIUM 25 MG TAB PO SCH (09:01)
[2022-05-13] MEDS: DULoxetine HCL 30 MG CAP PO SCH (09:01)
[2022-05-13] MEDS: MULTIVITAMIN TAB PO SCH (09:01)
[2022-05-13] MEDS: IPRATROPIUM BROMIDE NASAL SPRAY 0.06% 15ML NAE SCH ×2 (09:01→19:54)
[2022-05-13] MEDS: CYANOCOBALAMIN (B-12) 500 MCG TABLET PO SCH (09:01)
[2022-05-13] MEDS: SPIRONOLACTONE 25 MG TAB PO SCH (09:02)
[2022-05-13] MEDS: CHOLECALCIFEROL 1,000 UNITS 25 MCG TAB PO SCH (09:02)
[2022-05-13] MEDS: METOPROLOL SUCC 50MG EXT REL TAB PO SCH (09:02)
[2022-05-13] MEDS: buPROPion XL 150 MG TABCR PO SCH (09:02)
[2022-05-13] MEDS: dilTIAZem ER 180 MG CAPCR PO SCH (09:02)
[2022-05-13] MEDS: PANTOprazole 40 MG TAB PO SCH (09:02)
[2022-05-13] MEDS: INSULIN HUMAN NPH SC SCH ×2 (09:07→17:18)
[2022-05-13] MEDS: INSULIN ASPART PER UNIT SC SCH ×4 (09:07→20:19)
--- NOTE | 2022-05-13 10:00 | XRay Report ---
XR chest 2V PA/lateral CLINICAL HISTORY: f/u hypoxia/opacity TECHNIQUE: 2 views of the chest were obtained. Comparison: Comparison is made to chest radiograph 05/11/2022 FINDINGS: Dual lead pacemaker is seen. Posterior fixation hardware is partially visualized and lumbar spine. St atus post cemented arthroplasty of a collapsed thoracic vertebrae. The cardiomediastinal silhouette i s normal. The lungs are clear. There are small bilateral pleural effusions with associated atelectasi s. IMPRESSION: Small bilateral pleural effusions. Previously noted right lower lung opacity is less evident on today 's exam. ACT 112: Negative or not required by law. Electronically signed by: Sagar Grigsby M.D. 05/13/2022 9:59 AM
[2022-05-13] MEDS: ACETAMINOPHEN 500 MG TAB PO PRN (10:37)
[2022-05-13] MEDS ORDERED: PROMETHAZINE HCL 6.25 MG in SODIUM CHLORIDE 0.9% 50 ML IV STA (11:02)
--- NOTE | 2022-05-13 11:44 | Pharmacy Report ---
Pharmacy Glycemic Sign Off Nt - Date of Service May 13, 2022 - Assessment & Plan ASSESSMENT: * Stressors stable without anticipated changes * No significant changes to glycemic regimen x days with good glycemic control * Spoke w ALEKSEY Haider for pharmacy to sign-off PLAN FOR INPATIENT GLYCEMIC CONTROL: No changes needed to current regimen. * Continue basal insulin with NPH 15-20 units SQ BIDM * Continue NovoLog per scale ACHS/Q6hrs while NPO * Goal range = 110 140 mg/dl * CF = 20 mg/dl/unit * CR = 1 unit for ever 6 g CHO consumed * Pharmacy is signing off of glycemic consult and will no longer be making adjustments to inpatient regimen. Please feel free to re-consult if needed. Thank you.
[2022-05-13] MEDS ORDERED: FUROSEMIDE 40 MG/4 ML VIAL IV ONE (12:00)
[2022-05-13] MEDS: MAGNESIUM SULFATE / D5W 1 GM/100 ML BAG IV SCH ×2 (12:44→14:22)
--- NOTE | 2022-05-13 12:48 | Orthopedic Progress Note ---
Date of Service May 13, 2022 Assessment & Plan (1) Neurogenic claudication due to lumbar spinal stenosis: Plan: At this time we are adjusting some of her electrolytes. We will continue with therapy as tolerated. I think she would be an excellent candidate for rehab. Admission and Anticipated Discharge Date Admission Date: May 07, 2022 Subjective Back pain controlled leg pain improved. She is struggling with dizziness with ambulation and unsteady on her feet. Physical Exam Physical Exam: On exam she is in bed. She is comfortable in bed. Is good strength testing lower extremities. Results & Data ([facility]) Vital Signs (Past 12 Hours) Vital Signs Temp Pulse Resp BP Pulse Ox 05/13/22 10:30 36.7 C 72 16 120/72 96 05/13/22 07:56 95 05/13/22 07:40 36.6 C 73 16 118/72 95
[2022-05-13] MEDS ORDERED: SODIUM CHLORIDE 0.9% 250 ML IV PRN (15:04)
[2022-05-13] MEDS ORDERED: FUROSEMIDE INJ 20 MG/2 ML VIAL IV ONE (15:42)
[2022-05-13] MEDS ORDERED: ALBUTEROL 0.083% NEBU SOLN 3 ML VIAL NEB STA (15:43)
[2022-05-13] MEDS: ATORVASTATIN 40 MG TAB PO SCH (19:48)
[2022-05-13] MEDS: DOCUSATE SODIUM/SENNA 50/8.6MG TAB PO SCH (19:52)
[2022-05-13] MEDS: DOXEPIN HCL 50 MG CAPSULE PO SCH (19:53)
[2022-05-13] MEDS: oxyCODONE HCL IR 5 MG TAB (IMMEDIATE RELEASE) PO PRN (19:58)
[2022-05-13] MEDS: ONDANSETRON 4 MG OD TAB PO PRN (19:58)
[2022-05-14] MEDS ORDERED: IRON SUCROSE 300 MG in SODIUM CHLORIDE 0.9% 250 ML IV ONE (06:00)
--- NOTE | 2022-05-14 07:48 | XRay Report ---
XR chest 1V portable CLINICAL HISTORY: f/u hypoxia, volume status. COMPARISON STUDY: 05/13/2022 TECHNIQUE: 1 view of the chest FINDINGS: Single frontal view of the chest demonstrates the cardiomediastinal silhouette to be within normal li mits. Permanent cardiac pacer is in place. There is again evidence for bilateral pleural effusions, l eft greater than right and left basilar atelectasis. No confluent alveolar opacities are identified . There is no evidence for vascular congestion. There is no acute osseous pathology. IMPRESSION: 1. Small bilateral pleural effusions are again seen, left greater than right with left basilar atelec tasis. ACT 112: Negative or not required by law. Electronically signed by: Mateo Robin M.D. 05/14/2022 7:46 AM
--- NOTE | 2022-05-14 08:00 | Hospitalist Progress Note ---
Date of Service May 14, 2022 Assessment & Plan (1) Neurogenic claudication due to lumbar spinal stenosis: Plan: s/p #1 removal of posterior instrumentation L4-L5. #2 exploration of fusion L4- L5. #3 lumbar decompression bilateral medial facetectomies and foraminotomies L1-L2, L2-3 and L3-4. #4 posterior spinal fusion L2-L3 L3-L4. #5 placement posterior instrumentation L2-L5. #6 interbody fusion L2-L3 L3-L4. #7 placement of Spira 12 x 26 mm cage at L2-L3 and 13 x 26 at L3-L4. #8 placement locally harvested morselized autograft in the posterior gutters. #9 placement infuse collagen sponge, master graft in the posterior lateral gutters and I factor and interbody space with Dr Hardy on 05/07/22. EBL 350cc PT/OT/pain management/bowel regimen/DVT prophylaxis per primary service 05/13 hgb 7.5, iron studies w/ iron 15, trans sat5% and given 1u PRBC and dose of IV Venofer (repeat dose venofer 05/14) and hgb on AM labs improved to 9.1 No further lasix and actually appeared slightly dry on exam --> losartan on hold for now, Cr stable Mag improved to 1.6, additional 2gm IV ordered Breathing improved--> titrated to 1L NC SpO2 93% this afternoon and encouraging use of incentive spirometer (had not been using in days past) CXR without evidence for pneumonia, afebrile Dispo: awaiting bed at rehab per primary service Hospitalist service will continue to follow (2) Fall: Plan: Occurred 05/11 walking to bathroom with Suspect due to leg weakness from deconditioning from operation. ?need for rehabilitation on discharge, repeat PT pending. No suspected new injuries from the fall but will defer to Dr Hardy regarding reimaging back since she fell on her sacral area. messaged Dr Hardy regarding pain, defer on repeat imaging to him pain stable today (3) Acute metabolic encephalopathy: Plan: Resolved. Secondary to doxepin inappropriately on med rec put in as a morning medication rather than at night. Continue doxepin 50mg HS No recurrence with adding oxycodone back to pain regimen therefore ok to continue this cautious due to recent fall. Improvement in status 05/13-05/14 (4) Postoperative anemia: Plan: Hgb stable for iron deficient with transferrin sats 5%. Recommend starting ferrous sulphate 325mg PO QOD on discharge - will avoid for now given recent post op ileus. Venofer x 1 on 05/13, additional this morning Also given 1 u PRBC and hgb improved/stable CBC in AM (5) Hypoxia: Plan: Secondary to hypervolemia due to IV fluids given while drowsy and holding spironolactone due to hypotension. Improved significantly with IV lasix given day prior and was repeated 05/12 as SOB not back to baseline 05/13 remained on supplemental O2 and with wheezing in afternoon (multiple mag riders, phenergan, etc) and given lasix Ultimately discussed with ortho given anemia, hgb <8 and decision to transfuse 1 u SpO2 improved, down to 1L and continued IS/titrate as able Denied SOB 05/14 (6) Ileus: Plan: Resolved. mag also low, IV replacement ordered which should also assist with bowel movement --> additional IV replacement ordered for mag 1.6 Monitor in AM (7) Diabetes mellitus, type 2: Plan: Latest outpatient A1C:9.3 from March. Pharmacy consulted for glycemic control, controlled and signed off (8) Depression with anxiety: Plan: resume her home medication (9) TIA (transient ischemic attack): Plan: clopidogrel on hold. will defer to primary team when to restart. continue BB AND STATIN. Hold ARB d/t dehydration (10) Hypertension: Plan: Continue on her usual dose of diltiazem, metoprolol and spironolactone. Losartan remains on hold, IV lasix in days past but dry/hyponatremia on AM labs 1gm NaCl provided to avoid excessive fluids given mag BP stable Monitor (11) Gastroesophageal reflux disease: Plan: Dexlansoprazole switched to pantoprazole per hospital pharmacy. Continue Carafate. (12) Chronic obstructive pulmonary disease: Plan: No acute exacerbation. Continue Spiriva Respimat or hospital formulary equivalent Plan: Thank you for the consult, we will continue to follow. Admission and Anticipated Discharge Date Admission Date: May 07, 2022 Subjective eval this morning doing better than yesterday, more energy, but having some lower abdominal cramping. discussed motegrity, see if daugther richelle able to bring in. patient said she would call. discussing rehab -- she would like this as not getting along with moved bowels last evening said they removed the RIO drain this morning pain primarily incisional was up/ambulating. states improvement in breathing and lungs sound improved. Review of Systems Review of Systems: All systems reviewed & are unremarkable except as noted in HPI & below Physical Exam Physical Exam: General: WD/WN female much improved looking, sitting up in chair for breakfast, NAD HEENT: mm slightly dry, trachea midline without deviation, pupils equal and reactive Resp: CTAB, diminished in the bases, no wheezing, faint basilar crackles, on 2- 3L with SpO2 98% CV: RRR, no m/r/g, no calf edema/tenderness, cap refill wnl GI: +BS, soft, nontender MSK/Neuro: dressing c/d/i, RIO drain removed earlier today, strength equal b/l LE dorsiflexion/plantar flexion Psych: AOx3, pleasant and cooperative Results & Data Results & Data ([facility]) Vital Signs (Past 12 Hours) Vital Signs Temp Pulse Pulse Resp BP BP Pulse Ox 05/14/22 06:10 36.6 C 76 14 127/77 94 05/13/22 23:31 36.6 C 74 136/79 96 05/13/22 20:27 36.5 C 68 14 132/84 92 Laboratory Results 05/14/22 05/14/22 05/14/22 Range/Units 12:08 08:57 08:07 WBC (4.8-10.8) K/uL RBC (4.2-5.4) M/uL Hgb (12.0-16.0) g/dL Hct (37-47) % MCV (80-100) fL MCH (25-34) pg MCHC (32-36) g/dL RDW Std Deviation (36.4-46.3) fL RDW Coeff of Rian (11.5-14.5) % Plt Count (130-400) K/uL MPV (7.4-10.4) fL Absolute Nucleated RBC (0-0) K/uL Nucleated RBC % (auto) % Sodium (136-145) mmol/L Potassium 3.4 L Chloride (98-107) mmol/L Carbon Dioxide (21-32) mmol/L Anion Gap (3-11) BUN (6-23) mg/dl Creatinine (0.6-1.2) mg/dl Est Cr Clr Drug Dosing ml/min Est GFR ( Amer) ml/min Est GFR (Non-Af Amer) ml/min BUN/Creatinine Ratio (10-20) Glucose (70-99(Fasting)) mg/dl POC Glucose 171 H 157 H (70-99) mg/dl Calcium (8.5-10.1) mg/dl Magnesium (1.7-2.4) mg/dl Blood Type Antibody Screen Crossmatch 05/14/22 05/14/22 05/13/22 Range/Units 08:01 08:01 20:16 WBC 10.08 (4.8-10.8) K/uL RBC 3.05 L (4.2-5.4) M/uL Hgb 9.1 L (12.0-16.0) g/dL Hct 26.4 L (37-47) % MCV 86.6 (80-100) fL MCH 29.8 (25-34) pg MCHC 34.5 (32-36) g/dL RDW Std Deviation 50.1 H (36.4-46.3) fL RDW Coeff of Rian 15.8 H (11.5-14.5) % Plt Count 481 H (130-400) K/uL MPV 9.4 (7.4-10.4) fL Absolute Nucleated RBC 0.04 H (0-0) K/uL Nucleated RBC % (auto) 0.4 % Sodium 127 L (136-145) mmol/L Potassium TNP Chloride 93 L (98-107) mmol/L Carbon Dioxide 26 (21-32) mmol/L Anion Gap 8 (3-11) BUN 9 (6-23) mg/dl Creatinine 0.47 L (0.6-1.2) mg/dl Est Cr Clr Drug Dosing 104.4 ml/min Est GFR ( Amer) 110.4 ml/min Est GFR (Non-Af Amer) 95.3 ml/min BUN/Creatinine Ratio 19.1 (10-20) Glucose 144 H (70-99(Fasting)) mg/dl POC Glucose 127 H (70-99) mg/dl Calcium 8.0 L (8.5-10.1) mg/dl Magnesium 1.6 L (1.7-2.4) mg/dl Blood Type Antibody Screen Crossmatch 05/13/22 05/13/22 05/13/22 Range/Units 17:11 15:19 15:19 WBC (4.8-10.8) K/uL RBC (4.2-5.4) M/uL Hgb (12.0-16.0) g/dL Hct (37-47) % MCV (80-100) fL MCH (25-34) pg MCHC (32-36) g/dL RDW Std Deviation (36.4-46.3) fL RDW Coeff of Rian (11.5-14.5) % Plt Count (130-400) K/uL MPV (7.4-10.4) fL Absolute Nucleated RBC (0-0) K/uL Nucleated RBC % (auto) % Sodium (136-145) mmol/L Potassium Chloride (98-107) mmol/L Carbon Dioxide (21-32) mmol/L Anion Gap (3-11) BUN (6-23) mg/dl Creatinine (0.6-1.2) mg/dl Est Cr Clr Drug Dosing ml/min Est GFR ( Amer) ml/min Est GFR (Non-Af Amer) ml/min BUN/Creatinine Ratio (10-20) Glucose (70-99(Fasting)) mg/dl POC Glucose 151 H (70-99) mg/dl Calcium (8.5-10.1) mg/dl Magnesium (1.7-2.4) mg/dl Blood Type A Positive Cancelled Antibody Screen NEGATIVE Cancelled Crossmatch See Detail Diagnostic Findings Chest X-Ray 05/14/22 06:00 XR chest 1V portable CLINICAL HISTORY: f/u hypoxia, volume status. COMPARISON STUDY: 05/13/2022 TECHNIQUE: 1 view of the chest FINDINGS: Single frontal view of the chest demonstrates the cardiomediastinal silhouette to be within normal limits. Permanent cardiac pacer is in place. There is again evidence for bilateral pleural effusions, left greater than right and left basilar atelectasis. No confluent alveolar opacities are identified . There is no evidence for vascular congestion. There is no acute osseous pathology. IMPRESSION: 1. Small bilateral pleural effusions are again seen, left greater than right with left basilar atelectasis. ACT 112: Negative or not required by law. Electronically signed by: Mateo Robin M.D. 05/14/2022 7:46 AM PG Care Time/CCT Total # of Minutes Spent Total Time Spent with Patient: Total time spent is greater than 50% in coordination of care (as documented) at patient's floor/unit and/or counseling patient: Coding Level of Care Code 75862 Subseq Hosp Care Lvl 3 Diagnoses Neurogenic claudication due to lumbar spinal stenosis M48.062 Fall W19.XXXA Acute metabolic encephalopathy G93.41 Postoperative anemia D64.9 Hypoxia R09.02 Ileus K56.7 Diabetes mellitus, type 2 E11.9 Depression with anxiety F41.8 TIA (transient ischemic attack) G45.9 Hypertension I10 Gastroesophageal reflux disease K21.9 Esophagitis presence: without esophagitis Chronic obstructive pulmonary disease J44.9 (1) Gastroesophageal reflux disease Esophagitis presence: without esophagitis Qualified Code(s): K21.9 - Gastro- esophageal reflux disease without esophagitis
[2022-05-14 08:18] LABS: Hematocrit (blood only) 26.4 % (37-47); Hemoglobin 9.1 g/dL (12.0-16.0); Mean Corpuscular Hemoglobin 29.8 pg (25-34); Mean Corpuscular Hgb Conc 34.5 g/dL (32-36); Mean Corpuscular Volume 86.6 fL (80-100); Mean Platelet Volume 9.4 fL (7.4-10.4); Nucleated RBC # (auto) 0.04 K/uL (0-0); Nucleated RBC % (auto) 0.4 %; Platelet Count 481 K/uL (130-400); RDW Coefficient of Variation 15.8 % (11.5-14.5); RDW Standard Deviation 50.1 fL (36.4-46.3); Red Blood Count 3.05 M/uL (4.2-5.4); White Blood Count 10.08 K/uL (4.8-10.8)
[2022-05-14] MEDS: SUCRALFATE 1 GM/10 ML UDC PO SCH ×2 (08:36→17:19)
--- NOTE | 2022-05-14 08:36 | Orthopedic Progress Note ---
Date of Service May 14, 2022 Assessment & Plan (1) Neurogenic claudication due to lumbar spinal stenosis: Plan: Patient is postoperative day 7 status post lumbar decompression and instrumented fusion. She is continue to struggle a bit with medical issues including postop anemia. We will continue with ambulation today. Continue with pain control. DVT prophylaxis in the form of teds and SCDs. Will discharge to rehab once medically stable. Admission and Anticipated Discharge Date Admission Date: May 07, 2022 Subjective Dinorah is postoperative day 7 status post lumbar decompression and instrumented fusion. Today she is feeling quite fatigued/tired. Yesterday she received 1 unit of packed red blood cells. H&H is morning are 9.1 and 26.4 respectively. She had a bowel movement. [facility] Review of Systems Review of Systems: All systems reviewed & are unremarkable except as noted in HPI & below Physical Exam Physical Exam: She is lying in bed in no acute distress Alert and oriented x3 Calves are soft nontender bilateral lower extremities Strength is intact bilateral lower extremities Lumbar dressing is clean dry and intact Results & Data ([facility]) Vital Signs (Past 12 Hours) Vital Signs Temp Pulse Resp BP Pulse Ox 05/14/22 08:18 36.6 C 70 18 141/83 H 98 05/14/22 06:10 36.6 C 76 14 127/77 94 05/13/22 23:31 36.6 C 74 136/79 96
[2022-05-14] MEDS: IPRATROPIUM BROMIDE NASAL SPRAY 0.06% 15ML NAE SCH ×2 (08:39→19:56)
[2022-05-14] MEDS: UMECLIDINIUM BROMIDE 62.5MCG/BLISTER 7 PUFFS/INHALER INH SCH (08:39)
[2022-05-14] MEDS: FLUTICASONE/VILANTEROL 100/25MCG 14 PUFFS/INHALER INH SCH (08:39)
[2022-05-14] MEDS: METOPROLOL SUCC 50MG EXT REL TAB PO SCH (08:40)
[2022-05-14] MEDS: PANTOprazole 40 MG TAB PO SCH (08:40)
[2022-05-14] MEDS: MULTIVITAMIN TAB PO SCH (08:40)
[2022-05-14] MEDS: DULoxetine HCL 30 MG CAP PO SCH (08:41)
[2022-05-14] MEDS: CYANOCOBALAMIN (B-12) 500 MCG TABLET PO SCH (08:41)
[2022-05-14] MEDS: CHOLECALCIFEROL 1,000 UNITS 25 MCG TAB PO SCH (08:41)
[2022-05-14] MEDS: dilTIAZem ER 120 MG CAPCR PO SCH (08:41)
[2022-05-14] MEDS: dilTIAZem ER 180 MG CAPCR PO SCH (08:41)
[2022-05-14] MEDS: INSULIN HUMAN NPH SC SCH ×2 (08:42→17:45)
[2022-05-14] MEDS: buPROPion XL 150 MG TABCR PO SCH (08:42)
[2022-05-14 08:46] LABS: Anion Gap 8 (3-11); BUN Creatinine Ratio 19.1 (10-20); Blood Urea Nitrogen 9 mg/dl (6-23); Carbon Dioxide 26 mmol/L (21-32); Chloride 93 mmol/L (98-107); Creatinine Clr Calc Pharmacy 104.4 ml/min; Est GFR (African American) 110.4 ml/min; Est GFR (Non-African American) 95.3 ml/min; Glucose 144 mg/dl (70-99(Fasting)); Magnesium 1.6 mg/dl (1.7-2.4); Sodium 127 mmol/L (136-145)
[2022-05-14] MEDS: INSULIN ASPART PER UNIT SC SCH ×4 (08:53→21:08)
[2022-05-14] MEDS ORDERED: SODIUM CHLORIDE 1 GM TABLET PO ONE (09:05)
[2022-05-14] MEDS: MAGNESIUM SULFATE / D5W 1 GM/100 ML BAG IV SCH ×2 (09:37→11:29)
[2022-05-14 16:24] LABS: BUN Creatinine Ratio 17.5 (10-20); Blood Urea Nitrogen 10 mg/dl (6-23); Calcium 8.4 mg/dl (8.5-10.1); Carbon Dioxide 26 mmol/L (21-32); Chloride 92 mmol/L (98-107); Est GFR (African American) 103.6 ml/min; Est GFR (Non-African American) 89.4 ml/min; Glucose 158 mg/dl (70-99(Fasting))
[2022-05-14] MEDS ORDERED: POTASSIUM CHLORIDE CRTAB 20 MEQ TABCR PO STA (16:35)
--- NOTE | 2022-05-14 17:09 | XRay Report ---
LEFT KNEE 2 VIEWS CLINICAL HISTORY: Fall with left knee pain. FINDINGS: AP and crosstable lateral views of the left knee are compared to study dated 05/27/2013. The skeletal structures are osteopenic. No fracture is seen. There is moderate tricompartmental degenera tive joint space narrowing, greatest in the medial compartment. There are marginal osteophytes, briseno lar enthesophytes, and mild beaking of the tibial spine. Chondrocalcinosis is noted in the medial and lateral compartments. There is no large joint effusion. Mild soft tissue swelling is seen around the knee. IMPRESSION: 1. Mild soft tissue swelling with no fracture identified. 2. Osteopenia with degenerative change and chondrocalcinosis as above. Electronically signed by: Driss Stanley M.D. 05/14/2022 5:07 PM
[2022-05-14] MEDS: ATORVASTATIN 40 MG TAB PO SCH (19:55)
[2022-05-14] MEDS: DOXEPIN HCL 50 MG CAPSULE PO SCH (19:56)
[2022-05-14] MEDS: oxyCODONE HCL IR 5 MG TAB (IMMEDIATE RELEASE) PO PRN (20:01)
[2022-05-14] MEDS: DOCUSATE SODIUM/SENNA 50/8.6MG TAB PO SCH (20:01)
[2022-05-14 20:39] LABS: Potassium 3.4 mmol/L (3.5-5.1)
--- NOTE | 2022-05-15 08:13 | Orthopedic Progress Note ---
Date of Service May 15, 2022 Assessment & Plan (1) Neurogenic claudication due to lumbar spinal stenosis: Plan: At this time continue physical therapy and await placement for rehab. She is cleared to go to rehab as soon as bed available. Admission and Anticipated Discharge Date Admission Date: May 07, 2022 Subjective Back pain controlled leg symptoms improving Physical Exam Physical Exam: Patient is good strength testing. Results & Data ([facility]) Vital Signs (Past 12 Hours) Vital Signs Temp Pulse Resp BP Pulse Ox 05/15/22 07:23 36.8 C 67 16 102/65 94 05/14/22 22:27 36.8 C 71 16 103/63 91
[2022-05-15 08:39] LABS: Basophils # (auto) 0.03 K/uL (0-0.2); Basophils % (auto) 0.3 %; Eosinophils # (auto) 0.31 K/uL (0-0.5); Eosinophils % (auto) 2.9 %; Hematocrit (blood only) 25.2 % (37-47); Hemoglobin 8.3 g/dL (12.0-16.0); Immature Granulocytes # (auto) 0.43 K/uL (0.00-0.02); Immature Granulocytes % (auto) 4.1 %; Lymphocytes # (auto) 1.44 K/uL (1.2-3.4); Lymphocytes % (auto) 13.6 %; Mean Corpuscular Hemoglobin 28.6 pg (25-34); Mean Corpuscular Hgb Conc 32.9 g/dL (32-36); Mean Corpuscular Volume 86.9 fL (80-100); Mean Platelet Volume 8.9 fL (7.4-10.4); Monocytes # (auto) 1.15 K/uL (0.11-0.59); Monocytes % (auto) 10.8 %; Neutrophils # (auto) 7.25 K/uL (1.4-6.5); Neutrophils % (auto) 68.3 %; Nucleated RBC # (auto) 0.04 K/uL (0-0); Nucleated RBC % (auto) 0.4 %; Platelet Count 467 K/uL (130-400); RDW Coefficient of Variation 16.2 % (11.5-14.5); RDW Standard Deviation 51.6 fL (36.4-46.3); White Blood Count 10.61 K/uL (4.8-10.8)
--- NOTE | 2022-05-15 08:39 | Hospitalist Progress Note ---
Date of Service May 15, 2022 Assessment & Plan (1) Neurogenic claudication due to lumbar spinal stenosis: Plan: s/p #1 removal of posterior instrumentation L4-L5. #2 exploration of fusion L4- L5. #3 lumbar decompression bilateral medial facetectomies and foraminotomies L1-L2, L2-3 and L3-4. #4 posterior spinal fusion L2-L3 L3-L4. #5 placement posterior instrumentation L2-L5. #6 interbody fusion L2-L3 L3-L4. #7 placement of Spira 12 x 26 mm cage at L2-L3 and 13 x 26 at L3-L4. #8 placement locally harvested morselized autograft in the posterior gutters. #9 placement infuse collagen sponge, master graft in the posterior lateral gutters and I factor and interbody space with Dr Hardy on 05/07/22. EBL 350cc PT/OT/pain management/bowel regimen/DVT prophylaxis per primary service WBC wnl, afebrile Dispo: awaiting bed at rehab per primary service Hospitalist service will continue to follow Anemia/Hypoxia 1u PRBC 05/13, Venofer -- 3rd dose to be given 05/15 Hgb stable but getting multiple bags IV magnesium --> 1.6 on am labs, additional 2gm IV ordered (should help w/ wheezing as well) Will schedule daily PO as well to prevent excess volume CXR w/o evidence for pneumonia Had been stable RA this morning, desat with PT and rebounded in chair Scheduling albuterol for today/monitor No further lasix (appeared dry day prior), low sodium. 1gm Nacl tablet provided 05/14 w/ improvement to 129, additional 1gm today and check urine sodium studies Continue incentive spirometer/flutter valve Labs in AM (2) Fall: Plan: Occurred 05/11 walking to bathroom with Suspect due to leg weakness from deconditioning from operation. ?need for rehabilitation on discharge--> repeat PT w/ rec for rehab, awaiting placement No suspected new injuries from the fall but will defer to Dr Hardy regarding reimaging back since she fell on her sacral area. messaged Dr Hardy regarding pain, defer on repeat imaging to him pain stable today and improving (3) Acute metabolic encephalopathy: Plan: Resolved. Secondary to doxepin inappropriately on med rec put in as a morning medication rather than at night. Continue doxepin 50mg HS No recurrence with adding oxycodone back to pain regimen therefore ok to continue this cautious due to recent fall. Improvement in status 05/13-05/14 (4) Postoperative anemia: Plan: Hgb stable for iron deficient with transferrin sats 5%. Recommend starting ferrous sulphate 325mg PO QOD on discharge - will avoid for now given recent post op ileus. Venofer x 1 on 05/13,05/14 1u PRBC 05/13 Hgb stable 8.3 (7.5--> 9.1 after 1 unit 05/13) given volume from antiemetics/magnesium yesterday Additional 200mg venofer for 05/14 Monitor in AM (5) Hypoxia: Plan: Secondary to hypervolemia due to IV fluids given while drowsy and holding spironolactone due to hypotension. Improved significantly with IV lasix given day prior and was repeated 05/12 as SOB not back to baseline 05/13 -remained on supplemental O2 and with wheezing in afternoon (multiple mag riders, phenergan, etc) and given lasix Ultimately discussed with ortho given anemia, hgb <8 and decision to transfuse 1 u Denied SOB 05/14 and was able to titrate to RA in evening 05/15 breathing stable except w/ exertion/working with therapy but rebounding and 94-95% on RA -scheduling albuterol HFA for today, continue incentive spirometer/flutter valve . no sputum production (6) Ileus: Plan: Resolved. Pain medication induced. TSH wnl. Mag checked again --> low, additional replacement 05/14, normalized on evening labs but again low this morning Additional IV ordered, place on PO daily. ? if from PPI inpatient as not on usual formulary? Monitor in AM (7) Diabetes mellitus, type 2: Plan: Latest outpatient A1C:9.3 from March. Pharmacy consulted for glycemic control, controlled and signed off (8) Depression with anxiety: Plan: resume her home medication (9) TIA (transient ischemic attack): Plan: clopidogrel on hold. will defer to primary team when to restart --> per Dr Hardy, could restart 05/16 but will monitor CBC in AM continue BB AND STATIN. Hold ARB d/t dehydration (10) Hypertension: Plan: Continue on her usual dose of diltiazem, metoprolol and spironolactone. Losartan remains on hold, IV lasix in days past but dry/hyponatremia on AM labs 1gm NaCl provided to avoid excessive fluids given mag, additional 1gm 05/15 BP stable Monitor (11) Gastroesophageal reflux disease: Plan: Dexlansoprazole switched to pantoprazole per hospital pharmacy. Continue Carafate. ?cause for her hypomagnesium if not have issues with dexlansoprazole outpatient (12) Chronic obstructive pulmonary disease: Plan: No acute exacerbation. Continue Spiriva Respimat or hospital formulary equivalent consider azithro for exacerbation but suspect wheezing contributed by low mag as well as anemia Plan: Thank you for the consult, we will continue to follow. Admission and Anticipated Discharge Date Admission Date: May 07, 2022 Subjective patient evaluated this morning. just got done working with PT. De saturated to the 80s w/ ambulation, stable on 2 liters, and rebounded at rest in chair and 94-95% on room air currently shortness of breath with activity but improving. improvement in pain but still present incisionally. Has albuterol HFA at home, will schedule for today q6hr. Discussed I spoke with Dr Hardy and will likely resume her plavix in am. Color improved, less fatigued. Awaiting placement. No fever/chills, chest pain. No abdominal pain/nausea. No BM today but will schedule PO magnesium as well as IV and monitor. Questions/concerns addressed at this time. Lesion to L knee improved, granulation tissue present and continuing dressing changes per wound RN. Review of Systems Review of Systems: All systems reviewed & are unremarkable except as noted in HPI & below Physical Exam Physical Exam: General: WD/WN female sitting up in chair, just got done working with therapy, NAD, improved color HEENT: mm improved, trachea midline without deviation, pupils equal and reactive Resp: CTAB, diminished in the bases with associated bibasilar crackles, faint end expiratory wheezing R posterior lower lung field, 94% on RA CV: RRR, no m/r/g, no calf edema/tenderness, cap refill wnl GI: +BS, soft, nontender MSK/Neuro: dressing c/d/i, appropriately tender to palpation, NVI, strength equal b/l LE Psych: AOx3, pleasant and cooperative Skin: knee lesion improved, granulation tissue present, non-tender, covered w/ optifoam Results & Data Results & Data ([facility]) Vital Signs (Past 12 Hours) Vital Signs Temp Pulse Resp BP Pulse Ox 05/15/22 07:23 36.8 C 67 16 102/65 94 05/14/22 22:27 36.8 C 71 16 103/63 91 Laboratory Results 05/15/22 05/15/22 05/15/22 Range/Units 09:41 08:15 08:15 WBC 10.61 (4.8-10.8) K/uL RBC 2.90 L (4.2-5.4) M/uL Hgb 8.3 L (12.0-16.0) g/dL Hct 25.2 L (37-47) % MCV 86.9 (80-100) fL MCH 28.6 (25-34) pg MCHC 32.9 (32-36) g/dL RDW Std Deviation 51.6 H (36.4-46.3) fL RDW Coeff of Rian 16.2 H (11.5-14.5) % Plt Count 467 H (130-400) K/uL MPV 8.9 (7.4-10.4) fL Immature Gran % (Auto) 4.1 % Neut % (Auto) 68.3 % Lymph % (Auto) 13.6 % Navarro % (Auto) 10.8 % Eos % (Auto) 2.9 % Baso % (Auto) 0.3 % Neut # (Auto) 7.25 H (1.4-6.5) K/uL Lymph # (Auto) 1.44 (1.2-3.4) K/uL Navarro # (Auto) 1.15 H (0.11-0.59) K/uL Eos # (Auto) 0.31 (0-0.5) K/uL Baso # (Auto) 0.03 (0-0.2) K/uL Immature Gran # (Auto) 0.43 H (0.00-0.02) K/uL Absolute Nucleated RBC 0.04 H (0-0) K/uL Nucleated RBC % (auto) 0.4 % Sodium 129 L Potassium 3.5 Chloride 96 L (98-107) mmol/L Carbon Dioxide 26 (21-32) mmol/L Anion Gap 7 BUN 11 (6-23) mg/dl Creatinine 0.51 L (0.6-1.2) mg/dl Est Cr Clr Drug Dosing 96.2 ml/min Est GFR ( Amer) 107.5 ml/min Est GFR (Non-Af Amer) 92.8 ml/min BUN/Creatinine Ratio 21.6 H (10-20) Glucose 84 (70-99(Fasting)) mg/dl POC Glucose (70-99) mg/dl Osmolality 266 L (280-300) mOsm/kg Calcium 7.8 L (8.5-10.1) mg/dl Magnesium 1.6 L (1.7-2.4) mg/dl 05/15/22 05/14/22 05/14/22 Range/Units 08:13 20:41 20:09 WBC (4.8-10.8) K/uL RBC (4.2-5.4) M/uL Hgb (12.0-16.0) g/dL Hct (37-47) % MCV (80-100) fL MCH (25-34) pg MCHC (32-36) g/dL RDW Std Deviation (36.4-46.3) fL RDW Coeff of Rian (11.5-14.5) % Plt Count (130-400) K/uL MPV (7.4-10.4) fL Immature Gran % (Auto) % Neut % (Auto) % Lymph % (Auto) % Navarro % (Auto) % Eos % (Auto) % Baso % (Auto) % Neut # (Auto) (1.4-6.5) K/uL Lymph # (Auto) (1.2-3.4) K/uL Navarro # (Auto) (0.11-0.59) K/uL Eos # (Auto) (0-0.5) K/uL Baso # (Auto) (0-0.2) K/uL Immature Gran # (Auto) (0.00-0.02) K/uL Absolute Nucleated RBC (0-0) K/uL Nucleated RBC % (auto) % Sodium 127 L Potassium 3.4 L Chloride (98-107) mmol/L Carbon Dioxide (21-32) mmol/L Anion Gap BUN (6-23) mg/dl Creatinine (0.6-1.2) mg/dl Est Cr Clr Drug Dosing ml/min Est GFR ( Amer) ml/min Est GFR (Non-Af Amer) ml/min BUN/Creatinine Ratio (10-20) Glucose (70-99(Fasting)) mg/dl POC Glucose 108 H 142 H (70-99) mg/dl Osmolality (280-300) mOsm/kg Calcium (8.5-10.1) mg/dl Magnesium (1.7-2.4) mg/dl 05/14/22 05/14/22 05/14/22 Range/Units 17:24 14:47 14:47 WBC (4.8-10.8) K/uL RBC (4.2-5.4) M/uL Hgb (12.0-16.0) g/dL Hct (37-47) % MCV (80-100) fL MCH (25-34) pg MCHC (32-36) g/dL RDW Std Deviation (36.4-46.3) fL RDW Coeff of Rian (11.5-14.5) % Plt Count (130-400) K/uL MPV (7.4-10.4) fL Immature Gran % (Auto) % Neut % (Auto) % Lymph % (Auto) % Navarro % (Auto) % Eos % (Auto) % Baso % (Auto) % Neut # (Auto) (1.4-6.5) K/uL Lymph # (Auto) (1.2-3.4) K/uL Navarro # (Auto) (0.11-0.59) K/uL Eos # (Auto) (0-0.5) K/uL Baso # (Auto) (0-0.2) K/uL Immature Gran # (Auto) (0.00-0.02) K/uL Absolute Nucleated RBC (0-0) K/uL Nucleated RBC % (auto) % Sodium TNP Potassium TNP Chloride 92 L (98-107) mmol/L Carbon Dioxide 26 (21-32) mmol/L Anion Gap TNP BUN 10 (6-23) mg/dl Creatinine 0.57 L (0.6-1.2) mg/dl Est Cr Clr Drug Dosing 86.0 ml/min Est GFR ( Amer) 103.6 ml/min Est GFR (Non-Af Amer) 89.4 ml/min BUN/Creatinine Ratio 17.5 (10-20) Glucose 158 H (70-99(Fasting)) mg/dl POC Glucose 121 H (70-99) mg/dl Osmolality (280-300) mOsm/kg Calcium 8.4 L (8.5-10.1) mg/dl Magnesium 2.1 (1.7-2.4) mg/dl 05/14/22 Range/Units 12:08 WBC (4.8-10.8) K/uL RBC (4.2-5.4) M/uL Hgb (12.0-16.0) g/dL Hct (37-47) % MCV (80-100) fL MCH (25-34) pg MCHC (32-36) g/dL RDW Std Deviation (36.4-46.3) fL RDW Coeff of Rian (11.5-14.5) % Plt Count (130-400) K/uL MPV (7.4-10.4) fL Immature Gran % (Auto) % Neut % (Auto) % Lymph % (Auto) % Navarro % (Auto) % Eos % (Auto) % Baso % (Auto) % Neut # (Auto) (1.4-6.5) K/uL Lymph # (Auto) (1.2-3.4) K/uL Navarro # (Auto) (0.11-0.59) K/uL Eos # (Auto) (0-0.5) K/uL Baso # (Auto) (0-0.2) K/uL Immature Gran # (Auto) (0.00-0.02) K/uL Absolute Nucleated RBC (0-0) K/uL Nucleated RBC % (auto) % Sodium Potassium Chloride (98-107) mmol/L Carbon Dioxide (21-32) mmol/L Anion Gap BUN (6-23) mg/dl Creatinine (0.6-1.2) mg/dl Est Cr Clr Drug Dosing ml/min Est GFR ( Amer) ml/min Est GFR (Non-Af Amer) ml/min BUN/Creatinine Ratio (10-20) Glucose (70-99(Fasting)) mg/dl POC Glucose 171 H (70-99) mg/dl Osmolality (280-300) mOsm/kg Calcium (8.5-10.1) mg/dl Magnesium (1.7-2.4) mg/dl PG Care Time/CCT Total # of Minutes Spent Total Time Spent with Patient: Total time spent is greater than 50% in coordination of care (as documented) at patient's floor/unit and/or counseling patient: Coding Level of Care Code 05263 Subseq Hosp Care Lvl 3 Diagnoses Neurogenic claudication due to lumbar spinal stenosis M48.062 Fall W19.XXXA Acute metabolic encephalopathy G93.41 Postoperative anemia D64.9 Hypoxia R09.02 Ileus K56.7 Diabetes mellitus, type 2 E11.9 Depression with anxiety F41.8 TIA (transient ischemic attack) G45.9 Hypertension I10 Gastroesophageal reflux disease K21.9 Esophagitis presence: without esophagitis Chronic obstructive pulmonary disease J44.9 (1) Gastroesophageal reflux disease Esophagitis presence: without esophagitis Qualified Code(s): K21.9 - Gastro- esophageal reflux disease without esophagitis
[2022-05-15] MEDS ORDERED: POTASSIUM CHLORIDE CRTAB 20 MEQ TABCR PO STA ×2 (08:41→17:12)
[2022-05-15] MEDS ORDERED: SODIUM CHLORIDE 1 GM TABLET PO ONE (08:45)
[2022-05-15 08:52] LABS: BUN Creatinine Ratio 21.6 (10-20); Calcium 7.8 mg/dl (8.5-10.1); Creatinine Clr Calc Pharmacy 96.2 ml/min; Est GFR (African American) 107.5 ml/min; Est GFR (Non-African American) 92.8 ml/min; Magnesium 1.6 mg/dl (1.7-2.4); Potassium 3.5 mmol/L (3.5-5.1)
[2022-05-15] MEDS: SUCRALFATE 1 GM/10 ML UDC PO SCH ×2 (09:05→16:24)
[2022-05-15] MEDS: FLUTICASONE/VILANTEROL 100/25MCG 14 PUFFS/INHALER INH SCH (09:05)
[2022-05-15] MEDS: CHOLECALCIFEROL 1,000 UNITS 25 MCG TAB PO SCH (09:06)
[2022-05-15] MEDS: IPRATROPIUM BROMIDE NASAL SPRAY 0.06% 15ML NAE SCH ×3 (09:06→22:30)
[2022-05-15] MEDS: buPROPion XL 150 MG TABCR PO SCH (09:06)
[2022-05-15] MEDS: dilTIAZem ER 120 MG CAPCR PO SCH (09:06)
[2022-05-15] MEDS: METOPROLOL SUCC 50MG EXT REL TAB PO SCH (09:07)
[2022-05-15] MEDS: PANTOprazole 40 MG TAB PO SCH (09:07)
[2022-05-15] MEDS: MULTIVITAMIN TAB PO SCH (09:07)
[2022-05-15] MEDS: dilTIAZem ER 180 MG CAPCR PO SCH (09:07)
[2022-05-15] MEDS: DULoxetine HCL 30 MG CAP PO SCH (09:07)
[2022-05-15] MEDS: CYANOCOBALAMIN (B-12) 500 MCG TABLET PO SCH (09:07)
[2022-05-15] MEDS: INSULIN HUMAN NPH SC SCH ×2 (09:11→18:04)
[2022-05-15] MEDS: INSULIN ASPART PER UNIT SC SCH ×4 (09:16→21:08)
[2022-05-15] MEDS ORDERED: IRON SUCROSE 200 MG in 0.9 % SODIUM CHLORIDE 100 ML IV ONE (10:00)
[2022-05-15] MEDS: UMECLIDINIUM BROMIDE 62.5MCG/BLISTER 7 PUFFS/INHALER INH SCH (10:54)
[2022-05-15] MEDS: MAGNESIUM SULFATE / D5W 1 GM/100 ML BAG IV SCH ×2 (10:57→12:47)
[2022-05-15] MEDS: MAGNESIUM OXIDE 400 MG TAB PO SCH (11:51)
--- NOTE | 2022-05-15 11:57 | XRay Report ---
XR lumbar spine 2-3V CLINICAL HISTORY: weakness, s/p surgery and fall over weekend TECHNIQUE: 3 views of the lumbar spine were obtained. Comparison: None available at the time of this dictation. FINDINGS: There is no evidence of an acute fracture. Posterior fixation hardware is seen spanning L2-L5. Degene rative changes are seen. The alignment is normal. No soft tissue abnormality is seen. IMPRESSION: No acute fracture or subluxation. ACT 112: Negative or not required by law. Electronically signed by: Sagar Grigsby M.D. 05/15/2022 11:56 AM
[2022-05-15] MEDS: ALBUTEROL HFA 8 GM INHALER INH SCH ×3 (13:11→19:48)
[2022-05-15] MEDS: traMADol HCL 50 MG TABLET PO PRN ×2 (15:46→22:28)
[2022-05-15] MEDS ORDERED: guaiFENesin/CODEINE 100MG/10MG 5ML UDC PO PRN (16:48)
--- NOTE | 2022-05-15 17:07 | XRay Report ---
TWO VIEW CHEST CLINICAL HISTORY: Hypoxia. FINDINGS: AP and lateral chest radiographs are compared to study dated 05/14/2022. A 2-lead cardiac pa cemaker is unchanged in position and partially obscures the left upper chest. The heart is enlarged n oting atherosclerotic calcification of the thoracic ureter. There is pulmonary vascular congestion an d interstitial edema. There are left larger than right pleural effusions with dependent consolidation . No pneumothorax is seen. The skeletal structures are osteopenic. Degenerative change is seen in the thoracic spine. There is evidence of previous thoracic vertebroplasty. Fusion hardware is partially imaged in the lumbar spine. Fusion hardware is also noted in the lower cervical region. Cholecystecto my clips are seen in the right upper quadrant. IMPRESSION: 1. Cardiomegaly and cardiac pacemaker with evidence of congestive failure and pulmonary edema. This h as modestly worsened as compared to yesterday. 2. Left larger than right pleural effusions with dependent consolidation. ACT 112: Negative or not required by law. Electronically signed by: Driss Stanley M.D. 05/15/2022 5:06 PM
[2022-05-15] MEDS ORDERED: FUROSEMIDE INJ 20 MG/2 ML VIAL IV ONE (17:12)
[2022-05-15] MEDS: ATORVASTATIN 40 MG TAB PO SCH (22:28)
[2022-05-15] MEDS: DOCUSATE SODIUM/SENNA 50/8.6MG TAB PO SCH (22:30)
[2022-05-15] MEDS: DOXEPIN HCL 50 MG CAPSULE PO SCH (22:30)
[2022-05-16] MEDS: ALBUTEROL HFA 8 GM INHALER INH SCH ×4 (00:01→19:12)
--- NOTE | 2022-05-16 08:34 | Hospitalist Progress Note ---
Date of Service May 16, 2022 Assessment & Plan (1) Neurogenic claudication due to lumbar spinal stenosis: Plan: s/p #1 removal of posterior instrumentation L4-L5. #2 exploration of fusion L4- L5. #3 lumbar decompression bilateral medial facetectomies and foraminotomies L1-L2, L2-3 and L3-4. #4 posterior spinal fusion L2-L3 L3-L4. #5 placement posterior instrumentation L2-L5. #6 interbody fusion L2-L3 L3-L4. #7 placement of Spira 12 x 26 mm cage at L2-L3 and 13 x 26 at L3-L4. #8 placement locally harvested morselized autograft in the posterior gutters. #9 placement infuse collagen sponge, master graft in the posterior lateral gutters and I factor and interbody space with Dr Hardy on 05/07/22. EBL 350cc PT/OT/pain management/bowel regimen/DVT prophylaxis per primary service +BM 05/15, asked to administer another enema 05/16 given likely constipation continued but no n/v and has +BS WBC wnl, afebrile Dispo: awaiting bed at rehab per primary service, [facility] possibly tomorrow Hospitalist service will continue to follow Anemia/Hypoxia IMPROVED, room air currently, lungs sound improved/clear Iron deficient on labs, hx intrinsic asthma 1u PRBC, Venofer for total 900mg complete after today Scheduled albuterol HFA (had not been using prn) Continue usual asthma medications Given Lasix IV 20mg 05/15 for worsening volume overload on CXR with desaturation with improvement (had gotten 2 doses Nacl tablets day prior for low Na with dehydration on exam, but suspect could have been just not drinking as well in addition oxycodone less used and had been using tramadol which could contribute to her hyponatremia) Labs pending from this morning, however stable on ROOM AIR around noon this afternoon and lungs sounding clear PO magnesium ordered to avoid excessive IV repalcement/volume overload Monitor BNP when available, ECHO completed but not yet read [facility] possibly tomorrow, CM applying for auth (2) Fall: Plan: Occurred 05/11 walking to bathroom with Suspect due to leg weakness from deconditioning from operation. ?need for rehabilitation on discharge--> repeat PT w/ rec for rehab, awaiting placement No suspected new injuries from the fall but will defer to Dr Hardy regarding reimaging back since she fell on her sacral area. messaged Dr Hardy regarding pain, defer on repeat imaging to him pain stable today however tramadol likely contributing to hypoNa Suspect deconditioning as well given hasn't been very mobile for several m onths and didn't want to get out of bed for several days following operation/etc Encouraged to get out of bed for ALL meals and ambulate in halls again this evening (3) Acute metabolic encephalopathy: Plan: Resolved. Secondary to doxepin inappropriately on med rec put in as a morning medication rather than at night. Continue doxepin 50mg HS No recurrence with adding oxycodone back to pain regimen therefore ok to continue this cautious due to recent fall however hadn't been using and rather using tramadol which could be contributing to hypona/weakness (although full strength) Appears stable (4) Postoperative anemia: Plan: Hgb stable for iron deficient with transferrin sats 5%. Recommend starting ferrous sulphate 325mg PO QOD on discharge - will avoid for now given recent post op ileus. Venofer x 1 on 05/13,05/14 1u PRBC 05/13 Hgb stable 8.3 (7.5--> 9.1 after 1 unit 05/13) given volume from anti emetics/magnesium yesterday Additional 200mg venofer for 05/14 Monitor in AM (5) Hypoxia: Plan: see above (6) Ileus: Plan: Resolved. Pain medication induced. TSH wnl. Mag checked again --> low, additional replacement 05/14, normalized on evening labs but again low this morning Additional IV ordered, place on PO daily. ? if from PPI inpatient as not on usual formulary? Monitor in AM (7) Diabetes mellitus, type 2: Plan: Latest outpatient A1C:9.3 from March. Pharmacy consulted for glycemic control, controlled and signed off (8) Depression with anxiety: Plan: resume her home medication (9) TIA (transient ischemic attack): Plan: clopidogrel on hold. will defer to primary team when to restart --> per Dr Hardy, could restart 05/16 but will monitor labs prior to resuming continue BB AND STATIN. (10) Hypertension: Plan: Continue on her usual dose of diltiazem, metoprolol and spironolactone. Losartan resumed BP stable currently, monitor (11) Gastroesophageal reflux disease: Plan: Dexlansoprazole switched to pantoprazole per hospital pharmacy. Continue Carafate. ?cause for her hypomagnesium if not have issues with dexlansoprazole outpatient (12) Chronic obstructive pulmonary disease: Plan: No acute exacerbation. Continue Spiriva Respimat or hospital formulary equivalent consider azithro for exacerbation but suspect wheezing contributed by low mag as well as anemia --> lungs improved, holding off for now Plan: Thank you for the consult, we will continue to follow. Admission and Anticipated Discharge Date Admission Date: May 07, 2022 Subjective eval later in morning around noon, with daughter at bedside. patient was up in chair she reports for approximately 3 hours earlier today and stated she did a lap in the halls with therapy. Winded/fatigued following but encouraging continued small ambulation/out of bed for all meals. purewick placed again overnight/this morning -- she didn't want to have to get up multiple times with the lasix. discussed need to be up and moving. breathing improved, no chest pain/fever eating/drinking, BM yesterday. discussed tramadol likely contributing to low Na as well. she is upset about repeated lab draws and discussed need for am labs this morning but will avoid moving forward if possible. Plans to resume plavix hopefully today. She does have some pressure to lower abdomen, no pain, but agreeable to another enema today to assist with bowels. ECHO performed this morning but not yet read. Hopefully will be able to go to [facility] tomorrow and encouraged ambulation with assistance from staff this evening after dinner to prevent worsening deconditioning. Questions/concerns addressed at this time. Review of Systems Review of Systems: All systems reviewed & are unremarkable except as noted in HPI & below Physical Exam Physical Exam: General: WD/WN female sitting up in bed, daughter in room, NAD HEENT: mm improved, trachea midline without deviation, pupils equal in size Resp: CTAB, improvement in aeration, slightly diminished in the bases but NO wheezing, on ROOM AIR currently CV: RRR, no m/r/g, no calf tenderness, trace edema b/l LE, cap refill wnl GI: +BS, soft, nontender (but reporting discomfort lower abdomen) MSK/Neuro: dressing c/d/i, appropriately tender to palpation, NVI, strength equal b/l LE Psych: AOx3, pleasant Skin: LEFT knee lesion continue to improved, granulation tissue present, non- tender, covered w/ optifoam peripheral guided US LUE, radial pulses palpable Results & Data Results & Data ([facility]) Vital Signs (Past 12 Hours) Vital Signs Temp Pulse Resp BP Pulse Ox 05/16/22 08:13 36.6 C 68 16 139/81 95 05/16/22 06:54 70 16 95 05/16/22 00:30 36.6 C 67 17 111/69 92 05/16/22 00:01 70 20 90 PG Care Time/CCT Total # of Minutes Spent Total Time Spent with Patient: Total time spent is greater than 50% in coordination of care (as documented) at patient's floor/unit and/or counseling patient: Coding Level of Care Code 26015 Subseq Hosp Care Lvl 3 Diagnoses Neurogenic claudication due to lumbar spinal stenosis M48.062 Fall W19.XXXA Acute metabolic encephalopathy G93.41 Postoperative anemia D64.9 Hypoxia R09.02 Ileus K56.7 Diabetes mellitus, type 2 E11.9 Depression with anxiety F41.8 TIA (transient ischemic attack) G45.9 Hypertension I10 Gastroesophageal reflux disease K21.9 Esophagitis presence: without esophagitis Chronic obstructive pulmonary disease J44.9 (1) Gastroesophageal reflux disease Esophagitis presence: without esophagitis Qualified Code(s): K21.9 - Gastro- esophageal reflux disease without esophagitis
[2022-05-16] MEDS: INSULIN ASPART PER UNIT SC SCH ×4 (09:13→20:58)
[2022-05-16] MEDS: METOPROLOL SUCC 50MG EXT REL TAB PO SCH (09:14)
[2022-05-16] MEDS: MULTIVITAMIN TAB PO SCH (09:14)
[2022-05-16] MEDS: CYANOCOBALAMIN (B-12) 500 MCG TABLET PO SCH (09:14)
[2022-05-16] MEDS: SUCRALFATE 1 GM/10 ML UDC PO SCH ×2 (09:14→17:45)
[2022-05-16] MEDS: dilTIAZem ER 120 MG CAPCR PO SCH (09:14)
[2022-05-16] MEDS: dilTIAZem ER 180 MG CAPCR PO SCH (09:14)
[2022-05-16] MEDS: PANTOprazole 40 MG TAB PO SCH (09:14)
[2022-05-16] MEDS: MAGNESIUM OXIDE 400 MG TAB PO SCH ×3 (09:14→21:42)
[2022-05-16] MEDS: DULoxetine HCL 30 MG CAP PO SCH (09:14)
[2022-05-16] MEDS: buPROPion XL 150 MG TABCR PO SCH (09:15)
[2022-05-16] MEDS: INSULIN HUMAN NPH SC SCH ×2 (09:15→18:17)
[2022-05-16] MEDS: CHOLECALCIFEROL 1,000 UNITS 25 MCG TAB PO SCH (09:15)
[2022-05-16] MEDS: FLUTICASONE/VILANTEROL 100/25MCG 14 PUFFS/INHALER INH SCH (09:16)
[2022-05-16] MEDS: IPRATROPIUM BROMIDE NASAL SPRAY 0.06% 15ML NAE SCH ×3 (09:16→21:42)
--- NOTE | 2022-05-16 09:16 | Orthopedic Progress Note ---
Date of Service May 16, 2022 Assessment & Plan (1) Neurogenic claudication due to lumbar spinal stenosis: Plan: At this time we will continue physical therapy. I did review her x-rays. Hardware instrumentation is in place and intact. She would be an excellent can didate for rehab hopefully will be approved today or tomorrow. Admission and Anticipated Discharge Date Admission Date: May 07, 2022 Subjective Patient complaining mostly of back pain. She denies any numbness or tingling legs. Denies any leg pain. Physical Exam Physical Exam: On exam she is in the chair at the bedside. Is good strength testing lower extremities. She is tender to palpation of the bilateral trochanteric and IT bands. Results & Data ([facility]) Vital Signs (Past 12 Hours) Vital Signs Temp Pulse Resp BP Pulse Ox 05/16/22 08:13 36.6 C 68 16 139/81 95 05/16/22 06:54 70 16 95 05/16/22 00:30 36.6 C 67 17 111/69 92 05/16/22 00:01 70 20 90
[2022-05-16] MEDS: UMECLIDINIUM BROMIDE 62.5MCG/BLISTER 7 PUFFS/INHALER INH SCH (09:17)
[2022-05-16] MEDS: SPIRONOLACTONE 25 MG TAB PO SCH (10:17)
[2022-05-16] MEDS ORDERED: IRON SUCROSE 200 MG in 0.9 % SODIUM CHLORIDE 100 ML IV ONE (11:15)
[2022-05-16] MEDS: POLYETHYLENE (MIRALAX) 17 GM PACK PO SCH ×2 (12:53→21:43)
[2022-05-16] MEDS: bisacodyL 10 MG SUPP PR PRN (13:38)
[2022-05-16 14:18] LABS: Hematocrit (blood only) 28.4 % (37-47); Hemoglobin 9.5 g/dL (12.0-16.0); Mean Corpuscular Hemoglobin 28.9 pg (25-34); Mean Corpuscular Hgb Conc 33.5 g/dL (32-36); Mean Corpuscular Volume 86.3 fL (80-100); Mean Platelet Volume 8.9 fL (7.4-10.4); Platelet Count 575 K/uL (130-400); RDW Coefficient of Variation 16.3 % (11.5-14.5); RDW Standard Deviation 50.4 fL (36.4-46.3); Red Blood Count 3.29 M/uL (4.2-5.4); White Blood Count 13.81 K/uL (4.8-10.8)
[2022-05-16 14:39] LABS: BUN Creatinine Ratio 18.2 (10-20); Calcium 8.6 mg/dl (8.5-10.1); Creatinine Clr Calc Pharmacy 89.2 ml/min; Est GFR (African American) 104.9 ml/min; Est GFR (Non-African American) 90.5 ml/min; Magnesium 1.6 mg/dl (1.7-2.4); Potassium 4.3 mmol/L (3.5-5.1)
[2022-05-16] MEDS: CLOPIDOGREL BISULFATE 75 MG TAB PO SCH (15:58)
--- NOTE | 2022-05-16 16:19 | XCELERA ---
[id number]
[2022-05-16 19:05] LABS: Potassium Random Urine 13.9 mmol/L
[2022-05-16] MEDS: ATORVASTATIN 40 MG TAB PO SCH (21:41)
[2022-05-16] MEDS: DOXEPIN HCL 50 MG CAPSULE PO SCH (21:41)
[2022-05-16] MEDS: DOCUSATE SODIUM/SENNA 50/8.6MG TAB PO SCH (21:42)
[2022-05-17] MEDS: ALBUTEROL HFA 8 GM INHALER INH SCH (00:47)
[2022-05-17] MEDS ORDERED: ALBUTEROL HFA 8 GM INHALER INH PRN (01:29)
--- NOTE | 2022-05-17 07:38 | Hospitalist Progress Note ---
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 vs reset osmostat due to anesthesia compounded by tramadol use for pain Had reported poor PO intake but examination with multiple full pitchers of water and placed on 1L daily fluid restriction Na 122 this am, nephrology consulted Urine sodium 105 from prior 28 day before Given 100ml 3% saline this morning by nephrology, repeat labs with Na [address] Cantrell and giving additional 100ml 3% saline with dose of la six and plan to repeat labs this evening and continue fluid restriction (BNP elevated slightly, ECHO no sign change per Krystin) Avoiding further tramadol, has been using Tylenol without need for oxycodone today and moved bowels x 2 CT chest Oct 2021 without acute finding Continue to monitor (2) Neurogenic claudication due to lumbar spinal stenosis: Plan: POD# 10 s/p #1 removal of posterior instrumentation L4-L5. #2 exploration of fusion L4- L5. #3 lumbar decompression bilateral medial facetectomies and foraminotomies L1-L2, L2-3 and L3-4. #4 posterior spinal fusion L2-L3 L3-L4. #5 placement posterior instrumentation L2-L5. #6 interbody fusion L2-L3 L3-L4. #7 placement of Spira 12 x 26 mm cage at L2-L3 and 13 x 26 at L3-L4. #8 placement locally harvested morselized autograft in the posterior gutters. #9 placement infuse collagen sponge, master graft in the posterior lateral gutters and I factor and interbody space with Dr Hardy on 05/07/22 EBL 350cc WBC elevated day prior but improved today. Procal negative hgb stable at 10 and had received Venofer IV/1 u PRBC during hospitalization for hgb 7.4 PT/OT/pain management/bowel regimen/DVT prophylaxis per primary service Dispo: awaiting bed at rehab vs SNF (3) Fall: Plan: Occurred 05/11 walking to bathroom with , suspect due to weakness/deconditioning and hadn't been up/ambulating much in days prior due to ileus/pain and daughter reported has been several months of deconditioning Repeat lumbar imaging with hardware intact. No LOC/hit head PT/OT rehab vs SNF per primary service (4) Acute metabolic encephalopathy: Plan: Secondary to doxepin inappropriately on med rec put in as a morning medication rather than at night which was changed, but also suspect medication induced with pain medications prior AOx3 today and answering questions appropriately but tx for Hyponatremia as above Oxycodone initially held but tolerated and added back has been using tylenol Appears stable cognitively (5) Postoperative anemia: Plan: Hgb dropped to 7.4 surgery and initial plans written to start outpatient iron Given SOB/o2 requirement and Hgb <8, I transfused 1 u earlier in the week 05/13 and then scheduled Venofer IV which has been completed Hgb on repeat stable at 10.0 (6) Hypoxia: Plan: worse up/moving hx intrinsic asthma, seen in past by allergy/immunology, ?need for pulm in f/u after discharge CXR days prior with volume overload, given Lasix and breathing stable at rest but nursing keeping O2 in place as desaturates with walking from time to time/when cough (chronic cough x 10 years) Venofer/1u PRBC as above Lungs with faint expiratory wheezing today -- ordered IV mag, giving lasix this evening as above for hyponatremia (BNP elevated slightly, echo normal EF) Stated breathing stable currently titrate o2 to maintain sats (7) Ileus: Plan: Resolved. Pain medication induced. TSH wnl. +BM x 2 05/16-05/17 Monitor/continue bowel regimen (8) Diabetes mellitus, type 2: Plan: Latest outpatient A1C:9.3 from March. Pharmacy consulted for glycemic control, controlled and signed off bsgs acceptable now that no longer getting steroids or IV venofer containing dextrose continue ISS (9) Depression with anxiety: Plan: resume her home medication (10) TIA (transient ischemic attack): Plan: clopidogrel on hold until 05/[address] Hardy and ok to restart Continue BB/Statin (11) Hypertension: Plan: Continue on her usual dose of diltiazem, metoprolol Losartan/spironolactone on hold to prevent salt losses given SIADH/Hyponatremia as above BP stable, monitor (12) Gastroesophageal reflux disease: Plan: Dexlansoprazole switched to pantoprazole per hospital pharmacy. Continue Carafate. ?cause for her hypomagnesium if not have issues with dexlansoprazole outpatient (13) Chronic obstructive pulmonary disease: Plan: No acute exacerbation. Continue Spiriva Respimat or hospital formulary equivalent consider azithro for exacerbation but suspect wheezing contributed by low mag (14) Hypomagnesemia: Plan: low 1.5, additional IV replacement ordered. holding PO to prevent diarrhea losses as used yesterday to prevent having to give extra fluid volume monitor on repeat Plan: Hospitalist service will follow along Admission and Anticipated Discharge Date Admission Date: May 07, 2022 Supervising Physician Co-Signing Physician Notes PA Supervision Note: I did not personally see or examine the patient today, but I verified all palma points of REENA Tidwell's assessment and plan with the following exceptions/additions: None Subjective eval this morning, working with therapy currently on toilet, moving bowels on 2L with some wheezing when getting to bathroom. lungs slightly diminished on exam but no wheezing while sitting at rest on toilet strength acceptable sitting but requiring assistance to the bathroom with walker awaiting bed at rehab but working on sodium, she states she feels very tired this morning she stated nephrology was by this morning and that we will be giving salt in her IV. Discussed this will require labs. She isn't keen on this, but discussed importance and orders in system. No fever/chills. Does have some lower abdominal cramping. No one able to bring motegrity for patient. Does have increased urination, but no burning but will check urine. Review of Systems Review of Systems: All systems reviewed & are unremarkable except as noted in HPI & below Physical Exam Physical Exam: General: WD/WN up in bathroom working with PT, NAD HEENT: mmm, trachea midline without deviation, pupils equal in size Resp: CTAB, improvement in aeration, slightly diminished in the bases but NO wheezing at rest, on 2L NC CV: RRR, no m/r/g, no calf tenderness, trace edema b/l LE, cap refill wnl GI: +BS, soft, nontender (but reporting discomfort lower abdomen) MSK/Neuro: dressing c/d/i, appropriately tender to palpation, NVI, strength equal b/l LE and 4-5/5 Psych: AOx3, irritable about continued lab draws Skin: LEFT knee lesion continue to improved, granulation tissue present, non- tender, covered w/ optifoam peripheral guided US LUE, radial pulses palpable Results & Data Results & Data ([facility]) Vital Signs (Past 12 Hours) Vital Signs Temp Pulse Resp BP Pulse Ox 05/17/22 07:23 36.4 C L 73 17 148/76 H 95 05/16/22 22:47 36.6 C 70 17 120/75 92 Laboratory Results 05/16/22 05/16/22 05/16/22 Range/Units 20:54 18:12 18:12 WBC (4.8-10.8) K/uL RBC (4.2-5.4) M/uL Hgb (12.0-16.0) g/dL Hct (37-47) % MCV (80-100) fL MCH (25-34) pg MCHC (32-36) g/dL RDW Std Deviation (36.4-46.3) fL RDW Coeff of Rian (11.5-14.5) % Plt Count (130-400) K/uL MPV (7.4-10.4) fL Sodium (136-145) mmol/L Potassium (3.5-5.1) mmol/L Chloride (98-107) mmol/L Carbon Dioxide (21-32) mmol/L Anion Gap (3-11) BUN (6-23) mg/dl Creatinine (0.6-1.2) mg/dl Est Cr Clr Drug Dosing ml/min Est GFR ( Amer) ml/min Est GFR (Non-Af Amer) ml/min BUN/Creatinine Ratio (10-20) Glucose (70-99(Fasting)) mg/dl POC Glucose 103 H (70-99) mg/dl Calcium (8.5-10.1) mg/dl Magnesium (1.7-2.4) mg/dl B-Natriuretic Peptide (0-100) pg/ml TSH (0.300-4.500) uIu/ml Ur Random Sodium 105 mmol/L Ur Random Potassium Cancelled 13.9 mmol/L 05/16/22 05/16/22 05/16/22 Range/Units 17:21 13:54 13:54 WBC (4.8-10.8) K/uL RBC (4.2-5.4) M/uL Hgb (12.0-16.0) g/dL Hct (37-47) % MCV (80-100) fL MCH (25-34) pg MCHC (32-36) g/dL RDW Std Deviation (36.4-46.3) fL RDW Coeff of Rian (11.5-14.5) % Plt Count (130-400) K/uL MPV (7.4-10.4) fL Sodium 123 L (136-145) mmol/L Potassium 4.3 D (3.5-5.1) mmol/L Chloride 91 L (98-107) mmol/L Carbon Dioxide 25 (21-32) mmol/L Anion Gap 7 (3-11) BUN 10 (6-23) mg/dl Creatinine 0.55 L (0.6-1.2) mg/dl Est Cr Clr Drug Dosing 89.2 ml/min Est GFR ( Amer) 104.9 ml/min Est GFR (Non-Af Amer) 90.5 ml/min BUN/Creatinine Ratio 18.2 (10-20) Glucose 200 H (70-99(Fasting)) mg/dl POC Glucose 112 H (70-99) mg/dl Calcium 8.6 (8.5-10.1) mg/dl Magnesium 1.6 L (1.7-2.4) mg/dl B-Natriuretic Peptide 182 H (0-100) pg/ml TSH (0.300-4.500) uIu/ml Ur Random Sodium mmol/L Ur Random Potassium mmol/L 05/16/22 05/16/22 05/16/22 Range/Units 13:54 13:54 12:11 WBC 13.81 H (4.8-10.8) K/uL RBC 3.29 L (4.2-5.4) M/uL Hgb 9.5 L (12.0-16.0) g/dL Hct 28.4 L (37-47) % MCV 86.3 (80-100) fL MCH 28.9 (25-34) pg MCHC 33.5 (32-36) g/dL RDW Std Deviation 50.4 H (36.4-46.3) fL RDW Coeff of Rian 16.3 H (11.5-14.5) % Plt Count 575 H (130-400) K/uL MPV 8.9 (7.4-10.4) fL Sodium (136-145) mmol/L Potassium (3.5-5.1) mmol/L Chloride (98-107) mmol/L Carbon Dioxide (21-32) mmol/L Anion Gap (3-11) BUN (6-23) mg/dl Creatinine (0.6-1.2) mg/dl Est Cr Clr Drug Dosing ml/min Est GFR ( Amer) ml/min Est GFR (Non-Af Amer) ml/min BUN/Creatinine Ratio (10-20) Glucose (70-99(Fasting)) mg/dl POC Glucose 209 H (70-99) mg/dl Calcium (8.5-10.1) mg/dl Magnesium (1.7-2.4) mg/dl B-Natriuretic Peptide (0-100) pg/ml TSH 2.354 (0.300-4.500) uIu/ml Ur Random Sodium mmol/L Ur Random Potassium mmol/L 05/16/22 Range/Units 08:14 WBC (4.8-10.8) K/uL RBC (4.2-5.4) M/uL Hgb (12.0-16.0) g/dL Hct (37-47) % MCV (80-100) fL MCH (25-34) pg MCHC (32-36) g/dL RDW Std Deviation (36.4-46.3) fL RDW Coeff of Rian (11.5-14.5) % Plt Count (130-400) K/uL MPV (7.4-10.4) fL Sodium (136-145) mmol/L Potassium (3.5-5.1) mmol/L Chloride (98-107) mmol/L Carbon Dioxide (21-32) mmol/L Anion Gap (3-11) BUN (6-23) mg/dl Creatinine (0.6-1.2) mg/dl Est Cr Clr Drug Dosing ml/min Est GFR ( Amer) ml/min Est GFR (Non-Af Amer) ml/min BUN/Creatinine Ratio (10-20) Glucose (70-99(Fasting)) mg/dl POC Glucose 119 H (70-99) mg/dl Calcium (8.5-10.1) mg/dl Magnesium (1.7-2.4) mg/dl B-Natriuretic Peptide (0-100) pg/ml TSH (0.300-4.500) uIu/ml Ur Random Sodium mmol/L Ur Random Potassium mmol/L PG Care Time/CCT Total # of Minutes Spent Total Time Spent with Patient: Total time spent is greater than 50% in coordination of care (as documented) at patient's floor/unit and/or counseling patient: Coding Level of Care Code 13344 Subseq Hosp Care Lvl 3 Diagnoses Neurogenic claudication due to lumbar spinal stenosis M48.062 Fall W19.XXXA Acute metabolic encephalopathy G93.41 Postoperative anemia D64.9 Hypoxia R09.02 Ileus K56.7 Diabetes mellitus, type 2 E11.9 Depression with anxiety F41.8 TIA (transient ischemic attack) G45.9 Hypertension I10 Gastroesophageal reflux disease K21.9 Esophagitis presence: without esophagitis Chronic obstructive pulmonary disease J44.9 Hypomagnesemia E83.42 Hyponatremia E87.1 (1) Gastroesophageal reflux disease Esophagitis presence: without esophagitis Qualified Code(s): K21.9 - Gastro- esophageal reflux disease without esophagitis
[2022-05-17] MEDS: ACETAMINOPHEN 500 MG TAB PO PRN (07:59)
[2022-05-17] MEDS: POLYETHYLENE (MIRALAX) 17 GM PACK PO SCH ×2 (08:36→20:06)
[2022-05-17] MEDS: INSULIN ASPART PER UNIT SC SCH ×4 (08:39→20:52)
[2022-05-17] MEDS: INSULIN HUMAN NPH SC SCH ×2 (08:39→17:39)
[2022-05-17] MEDS: FLUTICASONE/VILANTEROL 100/25MCG 14 PUFFS/INHALER INH SCH (08:50)
[2022-05-17] MEDS: UMECLIDINIUM BROMIDE 62.5MCG/BLISTER 7 PUFFS/INHALER INH SCH (08:50)
[2022-05-17] MEDS: SUCRALFATE 1 GM/10 ML UDC PO SCH ×2 (08:50→16:45)
[2022-05-17] MEDS: CLOPIDOGREL BISULFATE 75 MG TAB PO SCH (08:51)
[2022-05-17] MEDS: buPROPion XL 150 MG TABCR PO SCH (08:51)
[2022-05-17] MEDS: IPRATROPIUM BROMIDE NASAL SPRAY 0.06% 15ML NAE SCH ×3 (08:51→20:05)
[2022-05-17] MEDS: CHOLECALCIFEROL 1,000 UNITS 25 MCG TAB PO SCH (08:51)
[2022-05-17] MEDS: CYANOCOBALAMIN (B-12) 500 MCG TABLET PO SCH (08:51)
[2022-05-17] MEDS: DULoxetine HCL 30 MG CAP PO SCH (08:52)
[2022-05-17] MEDS: MAGNESIUM OXIDE 400 MG TAB PO SCH (08:52)
[2022-05-17] MEDS: dilTIAZem ER 180 MG CAPCR PO SCH (08:52)
[2022-05-17] MEDS: dilTIAZem ER 120 MG CAPCR PO SCH (08:52)
[2022-05-17] MEDS: METOPROLOL SUCC 50MG EXT REL TAB PO SCH (08:52)
[2022-05-17] MEDS: MULTIVITAMIN TAB PO SCH (08:53)
[2022-05-17] MEDS: PANTOprazole 40 MG TAB PO SCH (08:53)
[2022-05-17 09:44] LABS: Mean Corpuscular Hgb Conc 34.5 g/dL (32-36); Mean Platelet Volume 8.6 fL (7.4-10.4); Platelet Count 604 K/uL (130-400)
[2022-05-17 10:04] LABS: Albumin Globulin Ratio 1.5 (0.9-2); Albumin Level 3.7 gm/dl (3.4-5.0); BUN Creatinine Ratio 16.1 (10-20); Bilirubin,Total 0.6 mg/dl (0.2-1.0); Calcium 8.6 mg/dl (8.5-10.1); Creatinine Clr Calc Pharmacy 87.6 ml/min; Est GFR (African American) 104.2 ml/min; Est GFR (Non-African American) 89.9 ml/min; Globulin 2.5 gm/dl (2.5-4.0); Magnesium 1.5 mg/dl (1.7-2.4); Potassium 4.5 mmol/L (3.5-5.1); Total Protein 6.2 gm/dl (6.0-8.3)
[2022-05-17 10:24] LABS: Basophils # (auto) 0.03 K/uL (0-0.2); Basophils % (auto) 0.3 %; Eosinophils # (auto) 0.15 K/uL (0-0.5); Eosinophils % (auto) 1.3 %; Immature Granulocytes # (auto) 0.46 K/uL (0.00-0.02); Immature Granulocytes % (auto) 3.9 %; Lymphocytes # (auto) 1.54 K/uL (1.2-3.4); Lymphocytes % (auto) 13.2 %; Mean Corpuscular Hemoglobin 29.9 pg (25-34); Mean Corpuscular Volume 86.8 fL (80-100); Monocytes # (auto) 0.73 K/uL (0.11-0.59); Monocytes % (auto) 6.3 %; Neutrophils # (auto) 8.74 K/uL (1.4-6.5); Polychromasia 1+; RDW Coefficient of Variation 16.6 % (11.5-14.5); RDW Standard Deviation 51.9 fL (36.4-46.3); Red Blood Count 3.34 M/uL (4.2-5.4); White Blood Count 11.65 K/uL (4.8-10.8)
[2022-05-17] MEDS ORDERED: SODIUM CHLORIDE 3 % 100 ML IV ONE ×3 (10:31→18:28)
--- NOTE | 2022-05-17 10:35 | Nephrology Consultation ---
Date of Consultation May 17, 2022 Assessment & Plan (1) Hyponatremia: Acute on chronic. Appears relatively asymptomatic. History consistent with some degree of underlying SIADH versus reset osmostat. Some fluid retention noted. Oral solute intake has been reduced. Free water intake has been excessive. 1L daily fluid restriction strongly enforced. 3% saline x 100 ml bolus now. Repeat labs ordered for this afternoon. Goal is to correct serum sodium @ ~0.5 mmol/L/hr to a max of ~6-8 mmol over the next 24 hours. Document strict I/O's. Medications otherwise acceptable. Plan of care reviewed with Dr. Hardy and Lili Tidwell PA-C this AM. (2) Hypertension: Volume status acceptable. Medications appropriate. BP controlled (3) Postoperative anemia: (4) Hypomagnesemia: IV replacement added this AM. Monitor with AM labs. History of Present Illness Reason for Consultation: Hyponatremia Attending Physician: Cornelius Hardy, DO History of Present Illness Mrs. Dinorah Robledo is a 77 year-old female with ASCVD, DMII, hypertension, OA/DJD, PAC, COPD, ADARSH/depression, and chronic hyponatremia. Prior evaluation for dysnatremia suggestive of underlying SIADH. Baseline serum sodium has been ~128-134 mmol/L. Dinorah has had normal kidney filtration manifested by normal serum creatinine. She was admitted to [facility] earlier this month with neurogenic claudication and severe spinal stenosis having failed outpatient therapy. Dr. Hardy performed removal of hardware with decompression and facetectomies as well as spinal fusion with cage and autograft placement on May 07. There were no complications with surgery. Dinorah did have a period of post operative/anesthesia encephalopathy and an ileus. Overall, her recovery has been slow. She reports persistent weakness. Appetite has been decreased. She is drinking plenty of fluids. Plan was for potential discharge to [facility] for rehab. Unfortunately, on laboratory studies yesterday, serum sodium had dropped from 129 mmol/L to 123 mmol/L. I was contacted by the hospitalist yesterday evening, we discussed management with some hypertonic fluid replacement but Dinorah initially refused. A free water restriction was implemented. Blood work was repeated this morning. Serum sodium 122 mmol/L. Urine output is good. Dinorah was seen and evaluated this AM. I reviewed concerns associated with dysnatremia. She was agreeable to IV fluid replacement. She has been receiving IV iron for acute on chronic anemia. She was treated with furosemide for evidence of fluid retention a couple days ago. Pain appears to be reasonably controlled. She is not experiencing any diarrhea. No NSAID use. TSH normal. TTE and CXR reviewed demonstrating some evidence of pulmonary congestion. Allergies Allergy/AdvReac Type Severity Reaction Status Date / Time levofloxacin Allergy Unknown ITCHY HIVES Verified 05/07/22 06:30 ofloxacin Allergy Unknown RASH Verified 05/07/22 06:30 pioglitazone Allergy Unknown ITCHING Verified 05/07/22 06:30 Sulfa (Sulfonamide Allergy Unknown itchy Verified 05/07/22 06:30 Antibiotics) KNEE GEL SHOT Allergy Unknown SWELLING Uncoded 05/07/22 06:30 AND BRUISING Home Medications Medication Instructions Recorded Confirmed Type cyanocobalamin (vitamin B-12) 1,000 mcg PO QAM tab 05/13/19 05/07/22 History 1,000 mcg tablet multivitamin (Multiple Vitamins) 1 tab PO QAM 07/01/19 05/07/22 History levalbuterol HCl 0.63 mg/3 mL 0.63 mg INH TID PRN #360 ml 12/23/19 05/07/22 Rx solution for nebulization polyethylene glycol 3350 17 17 g PO HS 05/19/20 05/07/22 History gram/dose oral powder (Miralax) valacyclovir 500 mg tablet 500 mg PO UD PRN tab 06/13/20 05/07/22 History tiotropium bromide 2.5 2 puffs INH QAM 07/28/20 05/07/22 History mcg/actuation mist for inhalation (Spiriva Respimat) bupropion HCl 150 mg 24 hr tablet, 150 mg PO QAM #90 tab 06/04/21 05/07/22 Rx extended release duloxetine 30 mg capsule,delayed 30 mg PO QAM #90 cap 06/04/21 05/07/22 Rx release lancets 33 gauge (OneTouch Delica #100 ea 08/21/21 04/26/22 History Lancets) pen needle, diabetic 31 gauge x #300 ea 08/21/21 04/26/22 Rx 3/16" (BD Ultra-Fine Mini Pen Needle) prucalopride 2 mg tablet 2 mg PO QAM #90 tab 09/18/21 05/07/22 Rx (Motegrity) albuterol sulfate 90 mcg/actuation 2 puff INH Q4H PRN #54 gm 10/01/21 05/07/22 Rx aerosol inhaler (Ventolin HFA) atorvastatin 80 mg tablet 80 mg PO QPM #90 tab 10/08/21 05/07/22 Rx spironolactone 50 mg tablet 50 mg PO QAM #90 tab 10/08/21 05/07/22 Rx metoprolol succinate 200 mg 200 mg PO QAM #90 tab 11/07/21 05/07/22 Rx tablet,extended release 24 hr dexlansoprazole 60 mg 60 mg PO QAM #90 cap 11/19/21 05/07/22 Rx capsule,biphase delayed release ondansetron 4 mg disintegrating 4 mg PO Q8H PRN #120 tab 11/19/21 05/07/22 Rx tablet blood sugar diagnostic (OneTouch 11/20/21 04/26/22 History Ultra Test) metformin 500 mg tablet,extended 500 mg PO BID #180 tab 11/26/21 05/07/22 Rx release 24 hr clopidogrel 75 mg tablet 75 mg PO QAM #90 tab 12/04/21 05/07/22 Rx cyclobenzaprine 5 mg tablet 5 mg PO UD PRN 12/07/21 05/07/22 History doxepin 75 mg capsule 75 mg PO HS 12/07/21 05/12/22 History losartan 25 mg tablet 25 mg PO QAM 12/07/21 05/07/22 History cholecalciferol (vitamin D3) 25 2,000 unit PO QAM tab 12/12/21 05/07/22 History mcg (1,000 unit) tablet inhaler,assist devices,access #1 ea 12/19/21 04/26/22 Rx OneTouch Ultra Control (blood #1 ea NS 01/16/22 04/26/22 Rx glucose control, normal) fluticasone propionate 230 2 inh INHALATION BID 90 Days #3 01/21/22 05/07/22 Rx mcg-salmeterol 21 mcg/actuation inhaler HFA inhaler (Advair HFA) ipratropium bromide 21 mcg (0.03 2 spray INTRANASAL BID #30 ml 01/21/22 05/07/22 Rx %) nasal spray diltiazem HCl 420 mg capsule,24 420 mg PO QAM #90 cap 01/24/22 05/07/22 Rx hr,extended release insulin regular hum U-500 conc 65 - 80 unit SQ UD box 02/18/22 05/07/22 History (Humulin R U-500 (Conc) Insulin Kwikpen) chlorpheniramine maleate 4 mg 4 mg PO UD PRN tab 02/19/22 05/07/22 History tablet sucralfate 100 mg/mL oral 10 ml PO BID #420 ml 02/27/22 05/07/22 Rx suspension codeine 10 mg-guaifenesin 100 mg/5 5 ml PO UD PRN 04/15/22 05/07/22 History mL oral liquid mometasone 50 mcg/actuation nasal 2 spray INTRANASAL UD PRN 04/15/22 05/07/22 History spray alprazolam 0.25 mg tablet 0.25 mg PO BID PRN #60 tab 04/19/22 05/07/22 Rx oxycodone 5 mg tablet 5 mg PO Q6H PRN #30 tab 05/08/22 Rx tramadol 50 mg tablet 50 mg PO Q6H PRN #30 tab 05/08/22 Rx ferrous sulfate 325 mg (65 mg 325 mg PO Q OTHER DAY #30 tab 05/12/22 Rx iron) tablet Patient History Medical History Anxiety Atrial premature complex F/U DR MITCH LONDONO Cancer HX BREAST 7 YR AGO, R mastectomy and lymph node excision, No chemo or XRT RUE limb restriction Carotid stenosis, asymptomatic S/p right CEA (2013) - follows with Dr. Kohli Chronic cough Nonproductive, ongoing evaluation/management. FOLLOWS PULMONOLOGY DR SAMS/DEMARCUS/TONE AND EMILYIMEL Chronic and stable (prone to bronchitis) Chronic obstructive pulmonary disease Stable per pt Complex regional pain syndrome type 1 affecting left shoulder CVA (cerebrovascular accident) Hx of several CVAs/TIAs in the past four years Most recent Dec 2019 per pt, denies residual effects Follows with Dr. Webber Depression Diabetic peripheral neuropathy Bilateral feet Difficult intravenous access Duodenal hemorrhage HX GI BLEED No recent issues Fatty liver Frequent falls D/t issues with back currently per pt, MOST RECENT FALL 7 WEEKS AGO - LEFT LEG BURSA SAC RUPTURE AND HURT RIGHT SHOULDER PER PT Gastroparesis Horners syndrome DROOPY EYES, BOTH - RIGHT IS WORSE AND GETS WORSE WITH FATIGUE Knee problem LEFT KNEE GEL SHOT INJECTION 5 WEEKS AGO, HAD SWELLING AND BRUISING AFTER - PT DISCUSSED WITH DR GREENWOOD AND WAS TOLD SHE WAS ALLERGIC TO IT AND NOT TO RECEIVE IN THE FUTURE - MILD BRUISING REMAINS Lumbar stenosis with neurogenic claudication Migraines Mixed hearing loss, bilateral Osteopenia Pacemaker 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 s/p Medtronic [place] XT DR KELLY Dual Chamber Pacemaker 04/12/21 LAST PACEMAKER CHECK 12/2021 Post-traumatic stress disorder Primary hypertension controlled per pt Syncope HX , RESOLVED WITH PACEMAKER PLACEMENT TIA (transient ischemic attack) 01/2018--reason for plavix, no deficits Type 2 diabetes mellitus Usually well controlled unless on steroids Surgical History Abdominoplasty (05/12/13) History of anesthesia reaction difficulty waking with 1st back surgery @ [facility]--no issues since History of bilateral cataract extraction History of bilateral mastectomy h/o R breast CA-lymph node removal R side History of bilateral tubal ligation History of bladder suspension procedure History of breast reconstruction Bilateral, Dr. Barr, Allergsaul Style 410 implant, size unknown History of carotid endarterectomy right, 2013 History of carpal tunnel release of both wrists History of cholecystectomy History of colonoscopy with polypectomy History of esophagogastroduodenoscopy (EGD) History of fusion of cervical spine x3--"cant turn to the right" History of fusion of lumbar spine x4 History of oral surgery gum sx History of right breast biopsy malignant History of surgery on left wrist plate in place History of total hysterectomy with bilateral salpingo-oophorectomy (BSO) History of total right knee replacement (TKR) History of trigger finger x4--bilt hands Pacemaker Medtronic, placed 03/2021, follows with [place] [facility] Family History Son Crohn's disease Sister Ulcerative colitis Family history of diabetes mellitus Mother Family history of diabetes mellitus Brother Family history of diabetes mellitus Other No family history of adverse response to anesthesia No family history of bleeding disorder Social History (Reviewed 05/17/22 @ 10:33 by TERESITA Zamarripa Smoking Status: Never smoker Second Hand Exposure: No; Do You Dip or Chew Tobacco: No; Hx Alcohol Use: Yes Alcohol type: beer Hx Substance Use: No Preferred Language: Belarusian Communication Ability: Effective 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 Assistant Required: No Beliefs That Will Affect Care: None marital status: Current Living Situation: Spouse Current Living Situation Comment: LIVES WITH SPOUSE current occupational status: retired Other Information That Helps Us Care for You: Yes (INTERESTED IN IN HOME CARE AFTER SURGERY) Feels Safe at Home: Yes Safety Concerns: Feels Safe At This Time during the past year weight has: decreased > 10 lbs Dental Care, Regularly: Yes Physical Activity Frequency: Daily Seatbelt Use: always Sunscreen Use: Yes Assistive Devices: Walker Assistive Devices Comment: LIFE ALERT SYSTEM, READING GLASSES, IMPLANTS AND PERMANENT BRIDGE Review of Systems Review of Systems: All systems reviewed & are unremarkable except as noted in HPI & below Physical Exam Constitutional: well developed; no acute distress Eyes: + anicteric sclerae; no corneal abnormality ENMT: Mouth: no oral mucosal abnormality and oral mucous membranes not dry Neck: normal visual inspection and trachea midline Respiratory: normal respiratory effort Auscultation: lungs clear to auscultation bilaterally and + rales (few at bases) Cardiovascular: Rate/Rhythm: regular rate Heart Sounds: normal S1 and normal S2 Vessels: no JVD Extremities: + edema Musculoskeletal: Extremities: no cyanosis and no clubbing Skin: normal turgor; no lesions Neurologic: Motor/Sensory: no tremor and no asterixis Psychiatric: Orientation: alert and oriented x 3 Results & Data ([facility]) Vital Signs (Past 12 Hours) Vital Signs Temp Pulse Resp BP Pulse Ox 05/17/22 07:23 36.4 C L 73 17 148/76 H 95 05/16/22 22:47 36.6 C 70 17 120/75 92 PG Care Time/CCT Total # of Minutes Spent Total Time Spent with Patient: Total time spent is greater than 50% in coordination of care (as documented) at patient's floor/unit and/or counseling patient: Coding Level of Care Code 46359 Inpt Consult Level 4 Diagnoses Hyponatremia E87.1 Hypertension I10 Postoperative anemia D64.9 Hypomagnesemia E83.42
[2022-05-17] MEDS: MAGNESIUM SULFATE / D5W 1 GM/100 ML BAG IV SCH ×2 (12:25→14:31)
[2022-05-17 12:40] LABS: Appearance Urine Clear (Clear); Bilirubin Urine Negative (Negative); Blood Urine Negative (Negative); Color Urine Yellow; Glucose Urine UA Negative (Negative); Ketones Urine Negative (Negative); Leukocyte Esterase Urine Negative (Negative); Nitrite Urine Negative (Negative); Protein Urine Negative (Negative); Specific Gravity Urine 1.009 (1.000-1.030); Urobilinogen Urine Negative (Negative); pH Urine 8.5 (4.5-7.5)
--- NOTE | 2022-05-17 13:23 | Orthopedic Progress Note ---
Date of Service May 17, 2022 Assessment & Plan (1) Neurogenic claudication due to lumbar spinal stenosis: Plan: At this time I would encourage her to continue with therapy as tolerated. She obviously needs assistance anytime she is out of bed. She hopefully be able to discharge once a bed is available today or this weekend. Admission and Anticipated Discharge Date Admission Date: May 07, 2022 Subjective Back pain is improving. Leg pain improved. She still notes weakness with ambulation. Physical Exam Physical Exam: On exam she did get up and ambulate with her walker with the occupational therapist with me observing. She is obviously taking very small steps she is unsteady. She heavily relies on a walker. Results & Data ([facility]) Vital Signs (Past 12 Hours) Vital Signs Temp Pulse Resp BP Pulse Ox 05/17/22 07:23 36.4 C L 73 17 148/76 H 95
[2022-05-17] MEDS ORDERED: FUROSEMIDE INJ 20 MG/2 ML VIAL IV ONE (14:43)
[2022-05-17] MEDS: hydrOXYzine HCl 25 MG TAB PO PRN (15:48)
[2022-05-17] MEDS: ONDANSETRON 4 MG OD TAB PO PRN (16:16)
[2022-05-17 17:59] LABS: BUN Creatinine Ratio 15.5 (10-20); Calcium 8.7 mg/dl (8.5-10.1); Creatinine Clr Calc Pharmacy 84.6 ml/min; Est GFR (Non-African American) 88.9 ml/min; Magnesium 2.1 mg/dl (1.7-2.4); Potassium 3.7 mmol/L (3.5-5.1)
[2022-05-17] MEDS: DOCUSATE SODIUM/SENNA 50/8.6MG TAB PO SCH (20:05)
[2022-05-17] MEDS: ATORVASTATIN 40 MG TAB PO SCH (20:05)
[2022-05-17] MEDS: DOXEPIN HCL 50 MG CAPSULE PO SCH (20:06)
[2022-05-18 07:38] LABS: Albumin Level 3.5 gm/dl (3.4-5.0); BUN Creatinine Ratio 16.4 (10-20); Calcium 8.2 mg/dl (8.5-10.1); Creatinine Clr Calc Pharmacy 80.4 ml/min; Est GFR (African American) 101.3 ml/min; Est GFR (Non-African American) 87.4 ml/min; Phosphorus 4.3 mg/dl (2.5-4.9)
[2022-05-18] MEDS: SUCRALFATE 1 GM/10 ML UDC PO SCH ×2 (07:43→15:51)
[2022-05-18] MEDS: DULoxetine HCL 30 MG CAP PO SCH (07:43)
[2022-05-18] MEDS: PANTOprazole 40 MG TAB PO SCH (07:43)
[2022-05-18] MEDS: buPROPion XL 150 MG TABCR PO SCH (07:43)
[2022-05-18] MEDS: dilTIAZem ER 180 MG CAPCR PO SCH (07:43)
[2022-05-18] MEDS: METOPROLOL SUCC 50MG EXT REL TAB PO SCH (07:44)
[2022-05-18] MEDS: CLOPIDOGREL BISULFATE 75 MG TAB PO SCH (07:45)
[2022-05-18] MEDS: dilTIAZem ER 120 MG CAPCR PO SCH (07:45)
[2022-05-18] MEDS: CYANOCOBALAMIN (B-12) 500 MCG TABLET PO SCH (07:45)
[2022-05-18] MEDS: FLUTICASONE/VILANTEROL 100/25MCG 14 PUFFS/INHALER INH SCH (07:46)
[2022-05-18] MEDS: MULTIVITAMIN TAB PO SCH (07:47)
[2022-05-18] MEDS: POLYETHYLENE (MIRALAX) 17 GM PACK PO SCH ×2 (07:48→21:19)
[2022-05-18] MEDS: UMECLIDINIUM BROMIDE 62.5MCG/BLISTER 7 PUFFS/INHALER INH SCH (07:48)
[2022-05-18] MEDS: IPRATROPIUM BROMIDE NASAL SPRAY 0.06% 15ML NAE SCH ×3 (07:51→21:18)
--- NOTE | 2022-05-18 08:30 | Hospitalist Progress Note ---
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 (previously on HCTZ, d/c'd earlier this year) Multiple doses of IV lasix over this past weekend without improvement in Na, then given 1gm Nacl tablets x 2 days earlier in week, subsequently developing pulmonary edema and additional lasix provided which improved breathing status and remains stable from that standpoint Appears relatively asymptomatic except for weakness/fatigue, and suspect underlying SIADH vs reset osmostat due to anesthesia compounded by tramadol use for pain Avoiding further tramadol TSH wnll 2.35 CT chest Oct 2021 without acute finding Urine sodium 105 from prior 28 day before * Had reported poor PO intake but examination with multiple full pitchers of water and placed on 1.2 L restriction, decreased to 1L daily fluid restriction and will continue such Nephrology on consult -- appreciate assistance/recs Given 3- 100ml bags 3% nacl with 20mg IV lasix 05/17 (BNP slight elevated, EHCO no change) Additional 100ml 3% Nacl ordered for this morning x1 Na IMPROVED TO 125 AM 05/18 (low 121 05/17) urine osm ordered for AM 05/19 Continue to monitor labs/additional replacement as needed (2) Neurogenic claudication due to lumbar spinal stenosis: Plan: POD# 11 fusion/decompression L4-L5, posterior fusion L2-L4 with Dr Hardy on 05/07/22 EBL 350cc WBC elevated day prior but improved on repeat, afebrile. Procal negative hgb stable at 10 on repeat and had received Venofer IV/1 u PRBC during hospitalization for hgb 7.4 PT/OT/pain management/bowel regimen/DVT prophylaxis per primary service Dispo: awaiting bed at SNF, likely next week (3) Fall: Plan: Occurred 05/11 walking to bathroom with , suspect due to weakness/deconditioning and hadn't been up/ambulating much in days prior due to ileus/pain and daughter reported has been several months of deconditioning Repeat lumbar imaging with hardware intact. No LOC/hit head PT/OT rehab --SNF planned (4) Acute metabolic encephalopathy: Plan: Secondary to doxepin inappropriately on med rec put in as a morning medication rather than at night which was changed, but also suspect medication induced with pain medications prior AOx3 today and answering questions appropriately but tx for Hyponatremia as above Oxycodone initially held but tolerated and added back has been using tylenol Appears stable cognitively but fatigue reported (5) Postoperative anemia: Plan: Hgb dropped to 7.4 surgery and initial plans written to start outpatient iron Given SOB/o2 requirement and Hgb <8, I transfused 1 u earlier in the week 05/13 and then scheduled Venofer IV which has been completed Hgb on repeat stable at 10.0 (6) Hypoxia: Plan: Improved breathing reported, however still on O2 unclear given stable once recovered w/ ambulation day prior hx intrinsic asthma, seen in past by allergy/immunology, ?need for pulm in f/u after discharge CXR days prior with volume overload, given Lasix and breathing stable at rest but nursing keeping O2 in place as desaturates with walking from time to time/when cough (chronic cough x 10 years) Venofer/1u PRBC as above Lungs with faint expiratory wheezing today -- ordered IV mag, giving lasix this evening as above for hyponatremia (BNP elevated slightly, echo normal EF) Stated breathing stable currently but is on 2L -- asked RN to take off/titrate 05/17 however remains on O2 and asked to titrate as breathing stable at rest 96% on 2L --> titrate to maintain sats Monitor (7) Ileus: Plan: Resolved. Pain medication induced. TSH wnl. Moved bowels again am 05/18 Monitor/continue bowel regimen (8) Diabetes mellitus, type 2: Plan: Latest outpatient A1C:9.3 from March. Pharmacy consulted for glycemic control, controlled and signed off bsgs acceptable now that no longer getting steroids or IV venofer containing dextrose continue ISS (9) Depression with anxiety: Plan: resume her home medication (10) TIA (transient ischemic attack): Plan: reported hx tia in past, however patient with hx R hemispheric stroke, moderate small vessel ischemic disease on MRI brain Jan 2021 (prior MRI 2018 neg for cva, CTA Dec 21 with indeterminate subcentimer lacunar infarct right frontal lobe santillan radiate and R internal capsule new from 2019 with worsening microvascular ischemic disease) h/o peripheral neuropathy with chronic balance impairement clopidogrel on hold until 05/[address] Hardy and ok to restart Continue BB/Statin BPs control -- has been stable (11) Hypertension: Plan: Continue on her usual dose of diltiazem, metoprolol Losartan/spironolactone on hold to prevent salt losses given SIADH/Hyponatremia as above BP stable 121/78, monitor (12) Gastroesophageal reflux disease: Plan: Dexlansoprazole switched to pantoprazole per hospital pharmacy. Continue Carafate. ?cause for her hypomagnesium if not have issues with dexlansoprazole outpatient (13) Chronic obstructive pulmonary disease: Plan: Hx of ?intrinsic astham No acute exacerbation. Continue Spiriva Respimat or hospital formulary equivalent consider azithro for exacerbation but suspect wheezing contributed by low mag, resolved on repeat faint wheezing, almost completely resolved on exam, no productive cough currently (14) Hypomagnesemia: Plan: low 1.5, additional IV replacement ordered. holding PO to prevent diarrhea losses as used yesterday to prevent having to give extra fluid volume monitor on repeat -- 2.1 Plan: Hospitalist service will follow along Admission and Anticipated Discharge Date Admission Date: May 07, 2022 Supervising Physician Co-Signing Physician Notes PA Supervision Note: I did not personally see or examine the patient today, but I verified all palma points of REENA Tidwell's assessment and plan with the following exceptions/additions: None Subjective evaluated this morning, states she is feeling very tired today. stated she was up in chair for dinner and breakfast for two hours last evening, pain improved to a 6/10 incisional and tolerable, only increased with movements/getting up. per nursing, was not up that long and not super motivated to get up/moving. instructed to avoid purewick and continue ambulation, even more frequent smaller amounts given inpatient stay prolonged and very deconditioned. patient states breathing stable at rest, asked RN to take off O2 and check given stable and no need resting in bed and can monitor with ambulation. Feeling slightly lightheaded but improved compared to days prior. Discussed Na improving and getting additional dose 3% Nacl this morning and will continue to monitor. +BM last evening and this morning, patient states lower abdominal discomfort yesterday resolved. No fever/chills, cough controlled, no sputum production, no chest pain, nausea or dysuria reported. Review of Systems Review of Systems: All systems reviewed & are unremarkable except as noted in HPI & below Physical Exam Physical Exam: General: WD/WN female laying in bed, NAD HEENT: mmm, trachea midline without deviation, pupils equal in size Resp: CTAB, improvement in aeration, poor inspiratory effort (encouraged incentive spirometer), faint posterior wheezing, no crackles/rales, on 2L SPo2 96% and to titrate off CV: RRR, no m/r/g, no calf tenderness, trace edema b/l LE, cap refill wnl GI: +BS/slightly hypoactive, soft, nontender MSK/Neuro: dressing c/d/i, appropriately tender to palpation, NVI, strength equal b/l LE and 4-5/5 Psych: AOx3, cooperative but fatigued appearing Skin: LEFT knee lesion continue to improved, granulation tissue present, non- tender, covered w/ optifoam peripheral guided US LUE, radial pulses palpable Results & Data Results & Data ([facility]) Vital Signs (Past 12 Hours) Vital Signs Temp Pulse Resp BP Pulse Ox 05/18/22 06:26 36.5 C 69 18 121/78 96 05/17/22 21:59 36.5 C 64 18 102/67 97 Laboratory Results 05/18/22 05/18/22 05/17/22 Range/Units 08:10 05:53 21:09 Sodium 125 L 124 L (136-145) mmol/L Potassium 4.0 (3.5-5.1) mmol/L Chloride 92 L (98-107) mmol/L Carbon Dioxide 23 (21-32) mmol/L Anion Gap 10 (3-11) BUN 10 (6-23) mg/dl Creatinine 0.61 (0.6-1.2) mg/dl Est Cr Clr Drug Dosing 80.4 ml/min Est GFR ( Amer) 101.3 ml/min Est GFR (Non-Af Amer) 87.4 ml/min BUN/Creatinine Ratio 16.4 (10-20) Glucose 107 H (70-99(Fasting)) mg/dl POC Glucose 135 H (70-99) mg/dl Calcium 8.2 L (8.5-10.1) mg/dl Phosphorus 4.3 (2.5-4.9) mg/dl Magnesium Albumin 3.5 (3.4-5.0) gm/dl Urine Color Urine Appearance (Clear) Urine pH (4.5-7.5) Ur Specific [place] (1.000-1.030) Urine Protein (Negative) Urine Glucose (UA) (Negative) Urine Ketones (Negative) Urine Blood (Negative) Urine Nitrite (Negative) Urine Bilirubin (Negative) Urine Urobilinogen (Negative) Ur Leukocyte Esterase (Negative) 05/17/22 05/17/22 05/17/22 Range/Units 20:39 17:05 16:55 Sodium 123 L (136-145) mmol/L Potassium 3.7 (3.5-5.1) mmol/L Chloride 91 L (98-107) mmol/L Carbon Dioxide 22 (21-32) mmol/L Anion Gap 10 (3-11) BUN 9 (6-23) mg/dl Creatinine 0.58 L (0.6-1.2) mg/dl Est Cr Clr Drug Dosing 84.6 ml/min Est GFR ( Amer) 103.0 ml/min Est GFR (Non-Af Amer) 88.9 ml/min BUN/Creatinine Ratio 15.5 (10-20) Glucose 121 H (70-99(Fasting)) mg/dl POC Glucose 118 H 112 H (70-99) mg/dl Calcium 8.7 (8.5-10.1) mg/dl Phosphorus (2.5-4.9) mg/dl Magnesium 2.1 Albumin (3.4-5.0) gm/dl Urine Color Urine Appearance (Clear) Urine pH (4.5-7.5) Ur Specific [place] (1.000-1.030) Urine Protein (Negative) Urine Glucose (UA) (Negative) Urine Ketones (Negative) Urine Blood (Negative) Urine Nitrite (Negative) Urine Bilirubin (Negative) Urine Urobilinogen (Negative) Ur Leukocyte Esterase (Negative) 05/17/22 05/17/22 05/17/22 Range/Units 16:55 13:42 12:00 Sodium 121 L (136-145) mmol/L Potassium (3.5-5.1) mmol/L Chloride (98-107) mmol/L Carbon Dioxide (21-32) mmol/L Anion Gap (3-11) BUN (6-23) mg/dl Creatinine (0.6-1.2) mg/dl Est Cr Clr Drug Dosing ml/min Est GFR ( Amer) ml/min Est GFR (Non-Af Amer) ml/min BUN/Creatinine Ratio (10-20) Glucose (70-99(Fasting)) mg/dl POC Glucose (70-99) mg/dl Calcium (8.5-10.1) mg/dl Phosphorus (2.5-4.9) mg/dl Magnesium Cancelled Albumin (3.4-5.0) gm/dl Urine Color Yellow Urine Appearance Clear (Clear) Urine pH 8.5 H (4.5-7.5) Ur Specific [place] 1.009 (1.000-1.030) Urine Protein Negative (Negative) Urine Glucose (UA) Negative (Negative) Urine Ketones Negative (Negative) Urine Blood Negative (Negative) Urine Nitrite Negative (Negative) Urine Bilirubin Negative (Negative) Urine Urobilinogen Negative (Negative) Ur Leukocyte Esterase Negative (Negative) 05/17/22 Range/Units 11:53 Sodium (136-145) mmol/L Potassium (3.5-5.1) mmol/L Chloride (98-107) mmol/L Carbon Dioxide (21-32) mmol/L Anion Gap (3-11) BUN (6-23) mg/dl Creatinine (0.6-1.2) mg/dl Est Cr Clr Drug Dosing ml/min Est GFR ( Amer) ml/min Est GFR (Non-Af Amer) ml/min BUN/Creatinine Ratio (10-20) Glucose (70-99(Fasting)) mg/dl POC Glucose 170 H (70-99) mg/dl Calcium (8.5-10.1) mg/dl Phosphorus (2.5-4.9) mg/dl Magnesium Albumin (3.4-5.0) gm/dl Urine Color Urine Appearance (Clear) Urine pH (4.5-7.5) Ur Specific [place] (1.000-1.030) Urine Protein (Negative) Urine Glucose (UA) (Negative) Urine Ketones (Negative) Urine Blood (Negative) Urine Nitrite (Negative) Urine Bilirubin (Negative) Urine Urobilinogen (Negative) Ur Leukocyte Esterase (Negative) PG Care Time/CCT Total # of Minutes Spent Total Time Spent with Patient: Total time spent is greater than 50% in coordination of care (as documented) at patient's floor/unit and/or counseling patient: Coding Level of Care Code 66476 Subseq Hosp Care Lvl 3 Diagnoses Hyponatremia E87.1 Neurogenic claudication due to lumbar spinal stenosis M48.062 Fall W19.XXXA Acute metabolic encephalopathy G93.41 Postoperative anemia D64.9 Hypoxia R09.02 Ileus K56.7 Diabetes mellitus, type 2 E11.9 Depression with anxiety F41.8 TIA (transient ischemic attack) G45.9 Hypertension I10 Gastroesophageal reflux disease K21.9 Esophagitis presence: without esophagitis Chronic obstructive pulmonary disease J44.9 Hypomagnesemia E83.42 (1) Gastroesophageal reflux disease Esophagitis presence: without esophagitis Qualified Code(s): K21.9 - Gastro- esophageal reflux disease without esophagitis
[2022-05-18] MEDS ORDERED: SODIUM CHLORIDE 3 % 100 ML IV ONE (09:00)
--- NOTE | 2022-05-18 09:00 | Nephrology Progress Note ---
Date of Service May 18, 2022 Assessment & Plan (1) Hyponatremia: Plan: * Acute on chronic hyponatremia exacerbated by discomfort of recent surgery * Clinically euvolemic to volume expanded. No clinical evidence of hypothyroidism, CHF, cirrhosis, nephrosis * Uosm inappropriately elevated in relation to serum sodium c/w ADH effect * Neurologically intact * Start NaCl 2g po BID * Provide one dose Furosemide 20 mg po this am to promote free water excretion * Follow up PRP at 1600 hrs today and in am * Note chronic hyponatremia w/ baseline Sna 130 - 134 mmol/L * Will ask staffing rn to attempt lab draws from IV or consider midline catheter Admission and Anticipated Discharge Date Admission Date: May 07, 2022 Subjective Mrs. Robledo was evaluated in her hospital room this morning. She c/o incisional discomfort and fatigue. She expressed a desire to reduce the frequency of lab draws Review of Systems Constitutional: + weakness; no fever Eyes: no problem reported Ear, Nose, Mouth, Throat: no problem reported Respiratory: no cough and no dyspnea Cardiovascular: + edema; no chest pain and no palpitations Gastrointestinal: no abdominal pain, no nausea, no vomiting and no diarrhea/loose stools Genitourinary: no dysuria and no hematuria Integumentary: no rash Neurologic: no falls, no dizziness and no confusion Physical Exam Constitutional: not in distress Eyes: PERRL, conjunctivae normal, anicteric sclerae Neck: trachea midline, no thyromegaly Respiratory: normal respiratory effort, lungs clear to auscultation Cardiovascular: Rate/Rhythm: regular rate and regular rhythm Extremities: + edema (2+ pretibial pitting edema) Neurologic: awake; not confused Results & Data ([facility]) Vital Signs (Past 12 Hours) Vital Signs Temp Pulse Resp BP Pulse Ox 05/18/22 06:26 36.5 C 69 18 121/78 96 05/17/22 21:59 36.5 C 64 18 102/67 97 Laboratory Results Laboratory Tests 05/15/22 05/17/22 05/18/22 15:19 12:00 05:53 Sodium 125 L Potassium 4.0 Chloride 92 L Carbon Dioxide 23 BUN 10 Creatinine 0.61 Glucose 107 H Calcium 8.2 L Phosphorus 4.3 Albumin 3.5 Urine Color Yellow Urine Appearance Clear Urine pH 8.5 H Ur Specific [place] 1.009 Urine Protein Negative Urine Glucose (UA) Negative Urine Blood Negative Urine Nitrite Negative Ur Leukocyte Esterase Negative Urine Osmolality 254 L PG Care Time/CCT Total # of Minutes Spent Total Time Spent with Patient: Total time spent is greater than 50% in coordination of care (as documented) at patient's floor/unit and/or counseling patient: Coding Level of Care Code 22025 Subseq Hosp Care Lvl 3 Diagnoses Hyponatremia E87.1
[2022-05-18] MEDS: INSULIN ASPART PER UNIT SC SCH ×4 (09:17→21:19)
[2022-05-18] MEDS: INSULIN HUMAN NPH SC SCH ×2 (09:19→17:58)
--- NOTE | 2022-05-18 09:50 | Orthopedic Progress Note ---
Date of Service May 18, 2022 Assessment & Plan (1) Hyponatremia: Plan: I did explain to the patient that she is not safe to go home. She is anxious to leave. She has agreed to hypertonic saline today to help address her hyponatremia. I would encourage her to continue with physical therapy. Hopefully she will be fit to return home or possible jail on Friday. Admission and Anticipated Discharge Date Admission Date: May 07, 2022 Subjective Patient's back pain is controlled. Still struggling with stable ambulation. She is feeling lightheaded. Physical Exam Physical Exam: Patient is in a chair at the bedside. Is good strength test ing. Results & Data ([facility]) Vital Signs (Past 12 Hours) Vital Signs Temp Pulse Resp BP Pulse Ox 05/18/22 06:26 36.5 C 69 18 121/78 96 05/17/22 21:59 36.5 C 64 18 102/67 97
[2022-05-18] MEDS: SODIUM CHLORIDE 1 GM TABLET PO SCH ×2 (10:50→21:18)
[2022-05-18] MEDS: CHOLECALCIFEROL 1,000 UNITS 25 MCG TAB PO SCH (10:50)
[2022-05-18] MEDS: FUROSEMIDE 20 MG TAB PO SCH (10:50)
[2022-05-18] MEDS: ALBUTEROL HFA 8 GM INHALER INH SCH ×2 (12:42→19:38)
[2022-05-18] MEDS: hydrOXYzine HCl 25 MG TAB PO PRN (15:50)
[2022-05-18 17:13] LABS: BUN Creatinine Ratio 14.8 (10-20); Calcium 8.5 mg/dl (8.5-10.1); Creatinine Clr Calc Pharmacy 80.4 ml/min; Est GFR (African American) 101.3 ml/min; Est GFR (Non-African American) 87.4 ml/min
[2022-05-18] MEDS: ATORVASTATIN 40 MG TAB PO SCH (21:18)
[2022-05-18] MEDS: DOCUSATE SODIUM/SENNA 50/8.6MG TAB PO SCH (21:19)
[2022-05-18] MEDS: DOXEPIN HCL 50 MG CAPSULE PO SCH (21:19)
[2022-05-19] MEDS: ALBUTEROL HFA 8 GM INHALER INH SCH ×4 (00:43→19:19)
[2022-05-19 07:29] LABS: Hematocrit (blood only) 30.5 % (37-47); Mean Corpuscular Hemoglobin 28.7 pg (25-34); Mean Corpuscular Hgb Conc 32.8 g/dL (32-36); Mean Corpuscular Volume 87.4 fL (80-100); Mean Platelet Volume 8.8 fL (7.4-10.4); Platelet Count 655 K/uL (130-400); RDW Coefficient of Variation 16.9 % (11.5-14.5); RDW Standard Deviation 53.1 fL (36.4-46.3); Red Blood Count 3.49 M/uL (4.2-5.4); White Blood Count 11.67 K/uL (4.8-10.8)
[2022-05-19 07:41] LABS: BUN Creatinine Ratio 14.3 (10-20); Calcium 8.5 mg/dl (8.5-10.1); Creatinine Clr Calc Pharmacy 77.9 ml/min; Est GFR (African American) 100.3 ml/min; Est GFR (Non-African American) 86.5 ml/min; Potassium 3.9 mmol/L (3.5-5.1)
--- NOTE | 2022-05-19 07:51 | Hospitalist Progress Note ---
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 (previously on HCTZ, d/c'd earlier this year) Multiple doses of IV lasix over this past weekend without improvement in Na, then given 1gm Nacl tablets x 2 days earlier in week, subsequently developing pulmonary edema and additional lasix provided which improved breathing status and remains stable from that standpoint Appears relatively asymptomatic except for weakness/fatigue, and suspect underlying SIADH vs reset osmostat due to anesthesia compounded by tramadol use for pain Avoiding further tramadol TSH wnll 2.35 CT chest Oct 2021 without acute finding Urine sodium 105 from prior 28 day before * Had reported poor PO intake but examination with multiple full pitchers of water and placed on 1.2 L restriction, decreased to 1L daily fluid restriction and will continue such Nephrology on consult -- THREE 100ml bags 3% nacl with 20mg IV lasix 05/17 (BNP slight elevated, EHCO no change), --One 100ml 3% AM 05/18 along with starting Nacl 2gm PO BID and lasix 20mg PO QAM Na IMPROVED TO 127 (low 121 on 17) Urine osm 315 from 254 Continues on nacl 2gm PO BID, lasix 20mg QAM and hopefully can stop repeat lab draws in AM if closer to baseline ~130s Awaiting placement (2) Neurogenic claudication due to lumbar spinal stenosis: Plan: POD# 11 fusion/decompression L4-L5, posterior fusion L2-L4 with Dr Hardy on 05/07/22 EBL 350cc WBC elevated day prior but improved on repeat, afebrile. Procal negative hgb stable at 10 on repeat and had received Venofer IV/1 u PRBC during hospitalization for hgb 7.4 (?longer standing anemia causing delayed elevation in plt count/WBC?, afebrile, procal negative) PT/OT/pain management/bowel regimen/DVT prophylaxis per primary service Dispo: awaiting bed at SNF, likely next week (3) Fall: Plan: Occurred 6/ walking to bathroom with , suspect due to weakness/deconditioning and hadn't been up/ambulating much in days prior due to ileus/pain and daughter reported has been several months of deconditioning Repeat lumbar imaging with hardware intact. No LOC/hit head PT/OT rehab --SNF planned (4) Acute metabolic encephalopathy: Plan: Secondary to doxepin inappropriately on med rec put in as a morning medication rather than at night which was changed, but also suspect medication induced with pain medications prior 05/19 AT BASELINE, much improved energy/appetite with improvement of sodium Pain control -- tolerating oxycodone/tylenol as needed. would avoid further tramadol (5) Postoperative anemia: Plan: Hgb dropped to 7.4 surgery and initial plans written to start outpatient iron Given SOB/o2 requirement and Hgb <8, I transfused 1 u earlier in the week 05/13 and then scheduled Venofer IV which has been completed Hgb on repeat stable at 10.0 x 2 Thrombocytosis likely reactive to previous anemia Follow CBC (6) Hypoxia: Plan: Improved breathing reported, however still on O2 unclear given stable once recovered w/ ambulation day prior hx intrinsic asthma, seen in past by allergy/immunology, ?need for pulm in f/u after discharge CXR days prior with volume overload, given Lasix and breathing stable at rest but nursing keeping O2 in place as desaturates with walking from time to time/when cough (chronic cough x 10 years) Venofer/1u PRBC as above Lasix as above to assist with hyponatremia Mag replaced and 2.1 on repeat STABLE ON ROOM AIR TODAY, LUNGS SOUNDING GOOD 97% on RA and continued incentive spirometer (7) Ileus: Plan: Resolved. Pain medication induced. TSH wnl. Moved bowels again am 05/18 Monitor/continue bowel regimen (8) Diabetes mellitus, type 2: Plan: Latest outpatient A1C:9.3 from March. Pharmacy consulted for glycemic control, controlled and signed off bsgs acceptable now that no longer getting steroids or IV venofer containing dextrose continue ISS (9) Depression with anxiety: Plan: resume her home medication (10) TIA (transient ischemic attack): Plan: reported hx tia in past, however patient with hx R hemispheric stroke, moderate small vessel ischemic disease on MRI brain Jan 2021 (prior MRI 2018 neg for cva, CTA Dec 21 with indeterminate subcentimer lacunar infarct right frontal lobe santillan radiate and R internal capsule new from 2019 with worsening microvascular ischemic disease) h/o peripheral neuropathy with chronic balance impairement clopidogrel on hold until 05/[address] Hardy and ok to restart Continue BB/Statin BPs control -- has been stable (11) Hypertension: Plan: Continue on her usual dose of diltiazem, metoprolol Losartan/spironolactone on hold to prevent salt losses given SIADH/Hyponatremia as above BP stable 149/78 and getting lasix low dose as above monitor (12) Gastroesophageal reflux disease: Plan: Dexlansoprazole switched to pantoprazole per hospital pharmacy. Continue Carafate. ?cause for her hypomagnesium if not have issues with dexlansoprazole outpatient (13) Chronic obstructive pulmonary disease: Plan: Hx of ?intrinsic astham No acute exacerbation. Continue Spiriva Respimat or hospital formulary equivalent consider azithro for exacerbation but suspect wheezing contributed by low mag, resolved on repeat 97% on RA today (14) Hypomagnesemia: Plan: low 1.5, additional IV replacement ordered. holding PO to prevent diarrhea losses as used yesterday to prevent having to give extra fluid volume monitor on repeat -- 2.1 Plan: Hospitalist service will follow along Admission and Anticipated Discharge Date Admission Date: May 07, 2022 Supervising Physician Co-Signing Physician Notes REENA Supervision Note: I did not personally see or examine the patient today, but I verified all palma points of REENA Tidwell's assessment and plan with the following exceptions/additions: None Subjective evaluated this morning following breakfast patient stated nursing was with her this morning but she was able to stand by herself and improved ambulation to the chair for breakfast, was up about two hours and just medicated for pain and back in bed improvement in energy and appetite and ate a good breakfast today. discussed improvement in sodium (she states she has always been a good water drinker but discussed limiting this to prevent worsening) and if improvement in AM labs will stop further draws if closer to her baseline. No fever/chills, chest pain, shortness of breath (much improved and better than baseline), no abdominal pain/nausea. Questions/concerns addressed at this time. Review of Systems Review of Systems: All systems reviewed & are unremarkable except as noted in HPI & below Physical Exam Physical Exam: General: WD/WN sitting up in hospital bed, just got back to bed from chair, NAD, improved energy and appetite HEENT: mmm, trachea midline without deviation, pupils equal in size Resp: CTAB, improvement in aeration, no w/c, on room air SpO2 97% CV: RRR, no m/r/g, no calf tenderness, 1-2+ pre-tibial edema b/l LE, cap refill wnl GI: +BS, soft, nontender MSK/Neuro: dressing c/d/i, appropriately tender to palpation, NVI, strength equal b/l LE and 4-5/5, improved ability to change positions with less discomfort observed Psych: AOx3, cooperative and improved energy Skin: LEFT knee lesion continue to improved, granulation tissue present, non- tender, covered w/ optifoam peripheral guided US LUE, radial pulses palpable Results & Data Results & Data ([facility]) Vital Signs (Past 12 Hours) Vital Signs Temp Pulse Resp BP Pulse Ox 05/19/22 07:07 80 18 93 05/18/22 23:30 36.5 C 64 18 105/67 94 Laboratory Results 05/19/22 05/19/22 05/19/22 Range/Units 08:16 05:45 05:45 WBC 11.67 H (4.8-10.8) K/uL RBC 3.49 L (4.2-5.4) M/uL Hgb 10.0 L (12.0-16.0) g/dL Hct 30.5 L (37-47) % MCV 87.4 (80-100) fL MCH 28.7 (25-34) pg MCHC 32.8 (32-36) g/dL RDW Std Deviation 53.1 H (36.4-46.3) fL RDW Coeff of Rian 16.9 H (11.5-14.5) % Plt Count 655 H (130-400) K/uL MPV 8.8 (7.4-10.4) fL Sodium 127 L (136-145) mmol/L Potassium 3.9 (3.5-5.1) mmol/L Chloride 95 L (98-107) mmol/L Carbon Dioxide 22 (21-32) mmol/L Anion Gap 10 (3-11) BUN 9 (6-23) mg/dl Creatinine 0.63 (0.6-1.2) mg/dl Est Cr Clr Drug Dosing 77.9 ml/min Est GFR ( Amer) 100.3 ml/min Est GFR (Non-Af Amer) 86.5 ml/min BUN/Creatinine Ratio 14.3 (10-20) Glucose 110 H (70-99(Fasting)) mg/dl POC Glucose 126 H (70-99) mg/dl Calcium 8.5 (8.5-10.1) mg/dl Urine Osmolality (500-800) mOsm/kg 22 05/18/22 05/18/22 Range/Units 20:52 16:54 16:34 WBC (4.8-10.8) K/uL RBC (4.2-5.4) M/uL Hgb (12.0-16.0) g/dL Hct (37-47) % MCV (80-100) fL MCH (25-34) pg MCHC (32-36) g/dL RDW Std Deviation (36.4-46.3) fL RDW Coeff of Rian (11.5-14.5) % Plt Count (130-400) K/uL MPV (7.4-10.4) fL Sodium 125 L (136-145) mmol/L Potassium 4.0 (3.5-5.1) mmol/L Chloride 94 L (98-107) mmol/L Carbon Dioxide 22 (21-32) mmol/L Anion Gap 9 (3-11) BUN 9 (6-23) mg/dl Creatinine 0.61 (0.6-1.2) mg/dl Est Cr Clr Drug Dosing 80.4 ml/min Est GFR ( Amer) 101.3 ml/min Est GFR (Non-Af Amer) 87.4 ml/min BUN/Creatinine Ratio 14.8 (10-20) Glucose 120 H (70-99(Fasting)) mg/dl POC Glucose 129 H 118 H (70-99) mg/dl Calcium 8.5 (8.5-10.1) mg/dl Urine Osmolality (500-800) mOsm/kg 22 05/18/22 Range/Units 12:15 11:52 WBC (4.8-10.8) K/uL RBC (4.2-5.4) M/uL Hgb (12.0-16.0) g/dL Hct (37-47) % MCV (80-100) fL MCH (25-34) pg MCHC (32-36) g/dL RDW Std Deviation (36.4-46.3) fL RDW Coeff of Rian (11.5-14.5) % Plt Count (130-400) K/uL MPV (7.4-10.4) fL Sodium (136-145) mmol/L Potassium (3.5-5.1) mmol/L Chloride (98-107) mmol/L Carbon Dioxide (21-32) mmol/L Anion Gap (3-11) BUN (6-23) mg/dl Creatinine (0.6-1.2) mg/dl Est Cr Clr Drug Dosing ml/min Est GFR ( Amer) ml/min Est GFR (Non-Af Amer) ml/min BUN/Creatinine Ratio (10-20) Glucose (70-99(Fasting)) mg/dl POC Glucose 165 H (70-99) mg/dl Calcium (8.5-10.1) mg/dl Urine Osmolality 315 L (500-800) mOsm/kg PG Care Time/CCT Total # of Minutes Spent Total Time Spent with Patient: Total time spent is greater than 50% in coordination of care (as documented) at patient's floor/unit and/or counseling patient: Coding Level of Care Code 96704 Subseq Hosp Care Lvl 3 Diagnoses Hyponatremia E87.1 Neurogenic claudication due to lumbar spinal stenosis M48.062 Fall W19.XXXA Acute metabolic encephalopathy G93.41 Postoperative anemia D64.9 Hypoxia R09.02 Ileus K56.7 Diabetes mellitus, type 2 E11.9 Depression with anxiety F41.8 TIA (transient ischemic attack) G45.9 Hypertension I10 Gastroesophageal reflux disease K21.9 Esophagitis presence: without esophagitis Chronic obstructive pulmonary disease J44.9 Hypomagnesemia E83.42 (1) Gastroesophageal reflux disease Esophagitis presence: without esophagitis Qualified Code(s): K21.9 - Gastro- esophageal reflux disease without esophagitis
[2022-05-19] MEDS: SUCRALFATE 1 GM/10 ML UDC PO SCH ×2 (08:48→16:32)
[2022-05-19] MEDS: CHOLECALCIFEROL 1,000 UNITS 25 MCG TAB PO SCH (08:49)
[2022-05-19] MEDS: buPROPion XL 150 MG TABCR PO SCH (08:49)
[2022-05-19] MEDS: CLOPIDOGREL BISULFATE 75 MG TAB PO SCH (08:49)
[2022-05-19] MEDS: SODIUM CHLORIDE 1 GM TABLET PO SCH ×2 (08:49→20:36)
[2022-05-19] MEDS: dilTIAZem ER 180 MG CAPCR PO SCH (08:49)
[2022-05-19] MEDS: CYANOCOBALAMIN (B-12) 500 MCG TABLET PO SCH (08:49)
[2022-05-19] MEDS: MULTIVITAMIN TAB PO SCH (08:49)
[2022-05-19] MEDS: FUROSEMIDE 20 MG TAB PO SCH (08:50)
[2022-05-19] MEDS: FLUTICASONE/VILANTEROL 100/25MCG 14 PUFFS/INHALER INH SCH (08:50)
[2022-05-19] MEDS: UMECLIDINIUM BROMIDE 62.5MCG/BLISTER 7 PUFFS/INHALER INH SCH (08:50)
[2022-05-19] MEDS: PANTOprazole 40 MG TAB PO SCH (08:50)
[2022-05-19] MEDS: METOPROLOL SUCC 50MG EXT REL TAB PO SCH (08:50)
[2022-05-19] MEDS: DULoxetine HCL 30 MG CAP PO SCH (08:50)
[2022-05-19] MEDS: IPRATROPIUM BROMIDE NASAL SPRAY 0.06% 15ML NAE SCH ×2 (08:51→20:36)
[2022-05-19] MEDS: dilTIAZem ER 120 MG CAPCR PO SCH (08:51)
[2022-05-19] MEDS: INSULIN HUMAN NPH SC SCH ×2 (08:56→17:52)
[2022-05-19] MEDS: INSULIN ASPART PER UNIT SC SCH ×4 (08:59→20:36)
[2022-05-19] MEDS: POLYETHYLENE (MIRALAX) 17 GM PACK PO SCH ×2 (09:00→20:37)
[2022-05-19] MEDS: oxyCODONE HCL IR 5 MG TAB (IMMEDIATE RELEASE) PO PRN (09:03)
--- NOTE | 2022-05-19 09:06 | Nephrology Progress Note ---
Date of Service May 19, 2022 Assessment & Plan (1) Hyponatremia: Plan: * Acute on chronic hyponatremia exacerbated by discomfort of recent surgery * Clinically euvolemic to volume expanded. No clinical evidence of hypothyroidism, CHF, cirrhosis, nephrosis * Uosm inappropriately elevated in relation to serum sodium c/w ADH effect * Neurologically intact * Continue NaCl 2g po BID * Will provide one dose Furosemide 20 mg po x1 this am * Note chronic hyponatremia w/ baseline Sna 130 - 134 mmol/L * Recheck PRP in am Admission and Anticipated Discharge Date Admission Date: May 07, 2022 Subjective Mrs. Robledo was evaluated in her hospital room this morning. She c/o incisional discomfort. She reports mild improvement in strength and was able to sit in a chair for several hours yesterday. Mrs. Robledo denies any GI upset or other side effect related to NaCl tablets Review of Systems Constitutional: + weakness; no fever Eyes: no problem reported Ear, Nose, Mouth, Throat: no problem reported Respiratory: no cough and no dyspnea Cardiovascular: + edema; no chest pain and no palpitations Gastrointestinal: no abdominal pain, no nausea, no vomiting and no diarrhea/loose stools Genitourinary: no dysuria and no hematuria Integumentary: no rash Neurologic: no falls, no dizziness and no confusion Physical Exam Constitutional: not in distress Eyes: PERRL, conjunctivae normal, anicteric sclerae Neck: trachea midline, no thyromegaly Respiratory: normal respiratory effort, lungs clear to auscultation Cardiovascular: Rate/Rhythm: regular rate and regular rhythm Extremities: + edema (2+ pretibial pitting edema) Neurologic: awake; not confused Results & Data ([facility]) Vital Signs (Past 12 Hours) Vital Signs Temp Pulse Resp BP Pulse Ox 05/19/22 08:23 36.4 C L 72 16 149/78 H 97 05/19/22 07:07 80 18 93 05/18/22 23:30 36.5 C 64 18 105/67 94 Laboratory Results Laboratory Tests 05/18/22 05/19/22 05/19/22 12:15 05:45 05:45 WBC 11.67 H Hgb 10.0 L Hct 30.5 L Plt Count 655 H Sodium 127 L Potassium 3.9 Chloride 95 L Carbon Dioxide 22 BUN 9 Creatinine 0.63 Glucose 110 H Calcium 8.5 Urine Osmolality 315 L PG Care Time/CCT Total # of Minutes Spent Total Time Spent with Patient: Total time spent is greater than 50% in coordination of care (as documented) at patient's floor/unit and/or counseling patient: Coding Level of Care Code 34636 Subseq Hosp Care Lvl 3 Diagnoses Hyponatremia E87.1
--- NOTE | 2022-05-19 09:20 | Orthopedic Progress Note ---
Date of Service May 19, 2022 Assessment & Plan (1) Neurogenic claudication due to lumbar spinal stenosis: Plan: Dinorah is postoperative day 12 lumbar decompression and fusion. We will continue with physical therapy today. Continue with pain control. Hopefully t omorrow will be able to discharge to SNF ideally. Home with home health as second choice but not ideal. Admission and Anticipated Discharge Date Admission Date: May 07, 2022 Subjective Dinorah is postoperative day 12 lumbar decompression fusion. She states her legs feel weak but overall is feeling better. Yesterday in physical therapy ambling roughly 30 feet. Still currently awaiting authorization/bed availability for SNF. Review of Systems Review of Systems: All systems reviewed & are unremarkable except as noted in HPI & below Physical Exam Physical Exam: She sitting in a chair no acute distress Alert and oriented x3 Lumbar dressing is clean dry and intact Strength is unchanged bilateral lower extremities Results & Data ([facility]) Vital Signs (Past 12 Hours) Vital Signs Temp Pulse Resp BP Pulse Ox 05/19/22 08:23 36.4 C L 72 16 149/78 H 97 05/19/22 07:07 80 18 93 05/18/22 23:30 36.5 C 64 18 105/67 94
[2022-05-19] MEDS: ACETAMINOPHEN 500 MG TAB PO PRN (16:30)
[2022-05-19] MEDS: ATORVASTATIN 40 MG TAB PO SCH (20:35)
[2022-05-19] MEDS: DOXEPIN HCL 50 MG CAPSULE PO SCH (20:35)
[2022-05-19] MEDS: DOCUSATE SODIUM/SENNA 50/8.6MG TAB PO SCH (20:36)
[2022-05-20] MEDS: ALBUTEROL HFA 8 GM INHALER INH SCH ×4 (00:28→19:14)
[2022-05-20 06:26] LABS: Hematocrit (blood only) 32.8 % (37-47); Mean Corpuscular Hemoglobin 30.1 pg (25-34); Mean Corpuscular Hgb Conc 33.5 g/dL (32-36); Mean Corpuscular Volume 89.6 fL (80-100); Mean Platelet Volume 8.6 fL (7.4-10.4); Platelet Count 656 K/uL (130-400); RDW Coefficient of Variation 16.6 % (11.5-14.5); RDW Standard Deviation 54.6 fL (36.4-46.3); Red Blood Count 3.66 M/uL (4.2-5.4)
[2022-05-20 06:47] LABS: BUN Creatinine Ratio 18.6 (10-20); Calcium 8.7 mg/dl (8.5-10.1); Creatinine Clr Calc Pharmacy 70.1 ml/min; Est GFR (African American) 96.9 ml/min; Est GFR (Non-African American) 83.6 ml/min; Magnesium 1.7 mg/dl (1.7-2.4); Potassium 4.4 mmol/L (3.5-5.1)
[2022-05-20 06:51] LABS: Basophils # (auto) 0.06 K/uL (0-0.2); Basophils % (auto) 0.5 %; Eosinophils # (auto) 0.25 K/uL (0-0.5); Eosinophils % (auto) 2.3 %; Immature Granulocytes # (auto) 0.31 K/uL (0.00-0.02); Immature Granulocytes % (auto) 2.8 %; Lymphocytes # (auto) 1.53 K/uL (1.2-3.4); Lymphocytes % (auto) 13.9 %; Monocytes # (auto) 1.02 K/uL (0.11-0.59); Monocytes % (auto) 9.3 %; Neutrophils # (auto) 7.83 K/uL (1.4-6.5); Neutrophils % (auto) 71.2 %; Polychromasia 1+
[2022-05-20] MEDS: IPRATROPIUM BROMIDE NASAL SPRAY 0.06% 15ML NAE SCH ×4 (08:08→20:57)
[2022-05-20] MEDS: INSULIN ASPART PER UNIT SC SCH ×4 (08:54→20:51)
[2022-05-20] MEDS: INSULIN HUMAN NPH SC SCH ×2 (08:56→17:22)
[2022-05-20] MEDS: SUCRALFATE 1 GM/10 ML UDC PO SCH ×2 (08:57→17:22)
[2022-05-20] MEDS: DULoxetine HCL 30 MG CAP PO SCH (08:58)
[2022-05-20] MEDS: CHOLECALCIFEROL 1,000 UNITS 25 MCG TAB PO SCH (08:58)
[2022-05-20] MEDS: PANTOprazole 40 MG TAB PO SCH (08:58)
[2022-05-20] MEDS: MULTIVITAMIN TAB PO SCH (08:58)
[2022-05-20] MEDS: dilTIAZem ER 180 MG CAPCR PO SCH (08:58)
[2022-05-20] MEDS: FUROSEMIDE 20 MG TAB PO SCH (08:58)
[2022-05-20] MEDS: METOPROLOL SUCC 50MG EXT REL TAB PO SCH (08:58)
[2022-05-20] MEDS: SODIUM CHLORIDE 1 GM TABLET PO SCH ×2 (08:58→20:57)
[2022-05-20] MEDS: dilTIAZem ER 120 MG CAPCR PO SCH (08:58)
[2022-05-20] MEDS: UMECLIDINIUM BROMIDE 62.5MCG/BLISTER 7 PUFFS/INHALER INH SCH (08:59)
[2022-05-20] MEDS: CYANOCOBALAMIN (B-12) 500 MCG TABLET PO SCH (08:59)
[2022-05-20] MEDS: CLOPIDOGREL BISULFATE 75 MG TAB PO SCH (08:59)
[2022-05-20] MEDS: FLUTICASONE/VILANTEROL 100/25MCG 14 PUFFS/INHALER INH SCH (08:59)
[2022-05-20] MEDS: POLYETHYLENE (MIRALAX) 17 GM PACK PO SCH ×2 (09:00→20:57)
[2022-05-20] MEDS: oxyCODONE HCL IR 5 MG TAB (IMMEDIATE RELEASE) PO PRN ×2 (09:09→20:56)
--- NOTE | 2022-05-20 09:10 | Nephrology Progress Note ---
Date of Service May 20, 2022 Assessment & Plan (1) Hyponatremia: Plan: * Acute on chronic hyponatremia exacerbated by discomfort of recent surgery * Clinically euvolemic to volume expanded. No clinical evidence of hypothyroidism, CHF, cirrhosis, nephrosis * Uosm inappropriately elevated in relation to serum sodium c/w ADH effect * Neurologically intact * Continue NaCl 2g po BID * Will provide one dose Furosemide 20 mg po x1 this am * Note chronic hyponatremia w/ baseline Sna 130 - 134 mmol/L * Recheck PRP in am Admission and Anticipated Discharge Date Admission Date: May 07, 2022 Subjective Mrs. Robledo was evaluated in her hospital room this morning. She reports mild improvement in strength and is anxious to work w/ PT this morning. Mrs. Robledo denies any GI upset or other side effect related to NaCl tablets Review of Systems Constitutional: + weakness; no fever Eyes: no problem reported Ear, Nose, Mouth, Throat: no problem reported Respiratory: no cough and no dyspnea Cardiovascular: + edema; no chest pain and no palpitations Gastrointestinal: no abdominal pain, no nausea, no vomiting and no diarrhea/loose stools Genitourinary: no dysuria and no hematuria Integumentary: no rash Neurologic: no falls, no dizziness and no confusion Physical Exam Constitutional: not in distress Eyes: PERRL, conjunctivae normal, anicteric sclerae Neck: trachea midline, no thyromegaly Respiratory: normal respiratory effort, lungs clear to auscultation Cardiovascular: Rate/Rhythm: regular rate and regular rhythm Extremities: + edema (2+ pretibial pitting edema) Neurologic: awake; not confused Results & Data ([facility]) Vital Signs (Past 12 Hours) Vital Signs Temp Pulse Resp BP Pulse Ox 05/20/22 06:56 18 97 05/20/22 06:16 36.6 C 68 18 150/76 H 96 05/19/22 23:00 36.5 C 59 L 18 117/70 95 Laboratory Results Laboratory Tests 05/20/22 05/20/22 05:56 05:56 WBC 11.00 H Hgb 11.0 L Hct 32.8 L Plt Count 656 H Sodium 129 L Potassium 4.4 Chloride 97 L Carbon Dioxide 22 BUN 13 Creatinine 0.70 Glucose 137 H Calcium 8.7 Magnesium 1.7 PG Care Time/CCT Total # of Minutes Spent Total Time Spent with Patient: Total time spent is greater than 50% in coordination of care (as documented) at patient's floor/unit and/or counseling patient: Coding Level of Care Code 17480 Subseq Hosp Care Lvl 3 Diagnoses Hyponatremia E87.1
[2022-05-20] MEDS: buPROPion XL 150 MG TABCR PO SCH (09:17)
--- NOTE | 2022-05-20 11:04 | Hospitalist Progress Note ---
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 (previously on HCTZ, d/c'd earlier this year) - Multiple doses of IV lasix over this past weekend without improvement in Na - 1gm Nacl tablets x 2 days earlier in week, subsequently developing pulmonary edema and additional lasix provided which improved breathing status - Suspect underlying SIADH vs reset osmostat due to anesthesia compounded by tramadol use for pain (will avoid Tramadol) * TSH WNL and CT chest in oct 2021 w/o findings - Nephrology on consult, appreciate assistance * THREE 100ml bags 3% nacl with 20mg IV lasix 05/17 (BNP slight elevated, EHCO no change), * One 100ml 3% AM 05/18 along with starting Nacl 2gm PO BID and lasix 20mg PO QAM - Improving and continues to approach baseline Na of ~130 (129 on 05/20) (2) Left upper extremity swelling: Plan: - Site of recent IV that infiltrated - Obtain venous doppler to exclude DVT (3) Neurogenic claudication due to lumbar spinal stenosis: Plan: POD# 12 fusion/decompression L4-L5, posterior fusion L2-L4 with Dr Hardy on 05/07/22 - PT/OT/pain management/bowel regimen/DVT prophylaxis per primary service (4) Fall: Plan: - Occurred 05/11 walking to bathroom with , suspect due to weakness/deconditioning - Repeat lumbar imaging with hardware intact. No LOC/hit head - PT/OT rehab --SNF planned (5) Acute metabolic encephalopathy: Plan: - Secondary to doxepin (inappropriately on med rec put in as a morning medication rather than at night which was changed) + worsening hyponatremia - RESOLVED 05/19-much improved energy/appetite with improvement of sodium - Pain control-tolerating oxycodone/tylenol as needed. would avoid further tramadol (6) Postoperative anemia: Plan: - Hgb dropped to 7.4 surgery and initial plans written to start outpatient iron - Given SOB/o2 requirement and Hgb <8, transfused 1 u earlier in the week 05/13 and then received Venofer x1 - Thrombocytosis likely reactive to previous anemia - H&H stable (7) Hypoxia: Plan: hx intrinsic asthma, seen in past by allergy/immunology, ?need for pulm in f/u after discharge - Suspect combo of anesthesia + hypervolemia - Continue incentive spirometer - This issue has RESOLVED (8) Ileus: Plan: - Resolved. Pain medication induced. TSH wnl. - Moved bowels again am 05/18 - Monitor/continue bowel regimen (9) Diabetes mellitus, type 2: Plan: - Latest outpatient A1C:9.3 from March. - Pharmacy consulted for glycemic control, controlled and signed off - bsgs acceptable now that no longer getting steroids or IV venofer containing dextrose - continue ISS (10) Depression with anxiety: Plan: - resume her home medication (11) TIA (transient ischemic attack): Plan: reported hx tia in past, however patient with hx R hemispheric stroke, moderate small vessel ischemic disease on MRI brain Jan 2021 (prior MRI 2018 neg for cva, CTA Dec 21 with indeterminate subcentimeter lacunar infarct right frontal lobe santillan radiate and R internal capsule new from 2019 with worsening microvascular ischemic disease) h/o peripheral neuropathy with chronic balance impairment - Continue BB/Statin/resumed Plavix on 05/16 - BPs control -- has been stable (12) Hypertension: Plan: - Continue on her usual dose of diltiazem, metoprolol - Losartan/spironolactone on hold to prevent salt losses given SIADH/Hyponatremia as above - BP stable (13) Gastroesophageal reflux disease: Plan: - Dexlansoprazole switched to pantoprazole per hospital pharmacy. Continue Carafate. (14) Chronic obstructive pulmonary disease: Plan: Hx of ?intrinsic asthma, No acute exacerbation. - Continue Spiriva Respimat or hospital formulary equivalent (15) Hypomagnesemia: Plan: replaced/resolved Plan: As above. No additional recommendations at this time. Asked RN to give pt a dulcolax suppository. Follow up chemistry in AM. Continue PT/OT. Medically stable for d/c to SNF when bed available from hospitalist standpoint. Ultimately, dc is at discretion of primary attending. Plan d/w Dr. Barreto. Admission and Anticipated Discharge Date Admission Date: May 07, 2022 Subjective Patient seen on daily rounds this morning. She is resting comfortably in bed. Mentioned that she had an IV site that "went bad" in her left arm and now has some swelling. Back pain is currently rated a 7/10. Denies cp, dyspnea, n/v. Voiding without issue. No BM since Friday and does feel a little bloated. Review of Systems Review of Systems: All systems reviewed and are unremarkable except as noted in HPI and below. Denies fever, chills, fatigue, headache, nasal congestion, sore throat, cough, chest pain, shortness of breath, palpitations, orthopnea, PND, abdominal pain, n/v/d, constipation, dysuria, hematuria, frequency, joint pain or swelling, easy bruising or bleeding, skin lesions or rashes. Physical Exam Physical Exam: GENERAL: Well-developed, well-nourished 77 WF. NAD. LUNGS: Clear to auscultation bilaterally. No W/R/R. CARDIOVASCULAR: Regular rate and rhythm. ABDOMEN: Soft, non-tender and non-distended. BS normoactive x 4 quad. EXTREMITIES: Edema of proximal LUE at site of recent IV. Mildly tender. No erythema. Peripheral pulses +2/4. NEUROLOGIC: A&O x3. Nonfocal PSYCHIATRIC: Cooperative. Appropriate mood and affect. SKIN: Warm, dry, intact. No rashes or lesions. Results & Data Results & Data ([facility]) Vital Signs (Past 12 Hours) Vital Signs Temp Pulse Resp BP Pulse Ox 05/20/22 06:56 18 97 05/20/22 06:16 36.6 C 68 18 150/76 H 96 05/19/22 23:00 36.5 C 59 L 18 117/70 95 Laboratory Results 05/20/22 05:56 05/20/22 05:56 PG Care Time/CCT Total # of Minutes Spent Total Time Spent with Patient: Total time spent is greater than 50% in coordination of care (as documented) at patient's floor/unit and/or counseling patient: Coding Level of Care Code 76620 Subseq Hosp Care Lvl 2 Diagnoses Hyponatremia E87.1 Neurogenic claudication due to lumbar spinal stenosis M48.062 Fall W19.XXXA Acute metabolic encephalopathy G93.41 Postoperative anemia D64.9 Hypoxia R09.02 Ileus K56.7 Diabetes mellitus, type 2 E11.9 Depression with anxiety F41.8 TIA (transient ischemic attack) G45.9 Hypertension I10 Gastroesophageal reflux disease K21.9 Esophagitis presence: without esophagitis Chronic obstructive pulmonary disease J44.9 Hypomagnesemia E83.42 Left upper extremity swelling M79.89 (1) Gastroesophageal reflux disease Esophagitis presence: without esophagitis Qualified Code(s): K21.9 - Gastro-e sophageal reflux disease without esophagitis
[2022-05-20] MEDS: bisacodyL 10 MG SUPP PR PRN (11:22)
--- NOTE | 2022-05-20 12:05 | Ultrasound Report ---
LEFT UPPER EXTREMITY VENOUS DOPPLER ULTRASOUND CLINICAL HISTORY: Left upper extremity swelling. COMPARISON STUDY: No previous studies for comparison. TECHNIQUE: Sonography of the venous system of the left upper extremity was performed. FINDINGS: No deep venous thrombus is identified within the left upper kidney. Note was made of superf icial thrombus within the left cephalic vein which extends from the upper arm to the antecubital anju a. IMPRESSION: 1. Superficial thrombus within the left cephalic vein which extends from the upper arm to the antecub ital fossa. 2. No deep venous thrombus within the left upper extremity. ACT 112: Negative or not required by law. Electronically signed by: Germán Broderick M.D. 05/20/2022 12:02 PM
--- NOTE | 2022-05-20 15:36 | Orthopedic Progress Note ---
Date of Service May 20, 2022 Assessment & Plan (1) Neurogenic claudication due to lumbar spinal stenosis: Plan: This time continue physical therapy anticipate possible discharge tomorrow with home health. Admission and Anticipated Discharge Date Admission Date: May 07, 2022 Subjective Patient's back pain is controlled she is getting more confidence with her ambulation Physical Exam Physical Exam: On exam she is ambulating about the room with a walker. She was able to sit and get out of the chair without assistance. Results & Data ([facility]) Vital Signs (Past 12 Hours) Vital Signs Temp Pulse Resp BP Pulse Ox 05/20/22 12:14 60 18 97 05/20/22 06:56 18 97 05/20/22 06:16 36.6 C 68 18 150/76 H 96
[2022-05-20] MEDS: DOCUSATE SODIUM/SENNA 50/8.6MG TAB PO SCH (20:56)
[2022-05-20] MEDS: ATORVASTATIN 40 MG TAB PO SCH (20:56)
[2022-05-20] MEDS: DOXEPIN HCL 50 MG CAPSULE PO SCH (20:57)
[2022-05-21] MEDS: ALBUTEROL HFA 8 GM INHALER INH SCH ×2 (00:10→07:41)
[2022-05-21 07:56] LABS: BUN Creatinine Ratio 26.6 (10-20); Calcium 8.5 mg/dl (8.5-10.1); Creatinine Clr Calc Pharmacy 76.6 ml/min; Est GFR (African American) 99.8 ml/min; Est GFR (Non-African American) 86.1 ml/min; Potassium 4.3 mmol/L (3.5-5.1)
--- NOTE | 2022-05-21 08:40 | Nephrology Progress Note ---
Date of Service May 21, 2022 Assessment & Plan (1) Hyponatremia: Plan: * Acute on chronic hyponatremia exacerbated by discomfort of recent surgery * Clinically euvolemic to volume expanded. No clinical evidence of hypothyroidism, CHF, cirrhosis, nephrosis * Uosm inappropriately elevated in relation to serum sodium c/w ADH effect * Neurologically intact * Reduce NaCl to 2g po daily * Recommend follow up w/ PCP in 1 - 2 weeks to monitor medical condition and determine whether to continue NaCl tablets Admission and Anticipated Discharge Date Admission Date: May 07, 2022 Subjective Ms. Robledo reports that she was able to sit in a chair for two hours yesterday and walked w/ PT using a walker. She is anxious to return home and notes that she has a lot of support from friends. Review of Systems Constitutional: + weakness; no fever Eyes: no problem reported Ear, Nose, Mouth, Throat: no problem reported Respiratory: no cough and no dyspnea Cardiovascular: + edema; no chest pain and no palpitations Gastrointestinal: no abdominal pain, no nausea, no vomiting and no diarrhea/loose stools Genitourinary: no dysuria and no hematuria Integumentary: no rash Neurologic: no falls, no dizziness and no confusion Physical Exam Constitutional: not in distress Eyes: PERRL, conjunctivae normal, anicteric sclerae Neck: trachea midline, no thyromegaly Respiratory: normal respiratory effort, lungs clear to auscultation Cardiovascular: Rate/Rhythm: regular rate and regular rhythm Extremities: + edema (2+ pretibial pitting edema) Neurologic: awake; not confused Results & Data ([facility]) Vital Signs (Past 12 Hours) Vital Signs Temp Pulse Resp BP Pulse Ox 05/21/22 07:50 36.6 C 64 18 133/75 93 05/21/22 07:41 66 16 97 05/21/22 00:10 62 18 95 05/20/22 21:33 36.7 C 64 20 113/70 96 Laboratory Results Laboratory Tests 05/21/22 06:48 Sodium 130 L Potassium 4.3 Chloride 99 Carbon Dioxide 22 BUN 17 Creatinine 0.64 Glucose 138 H Calcium 8.5 PG Care Time/CCT Total # of Minutes Spent Total Time Spent with Patient: Total time spent is greater than 50% in coordination of care (as documented) at patient's floor/unit and/or counseling patient: Coding Level of Care Code 18290 Subseq Hosp Care Lvl 3 Diagnoses Hyponatremia E87.1
--- NOTE | 2022-05-21 08:41 | Discharge Summary ---
Date of Service May 21, 2022 Admission HPI Per Admitting Provider This is a 76-year-old female well-known to me the presents with current persistent back and bilateral leg pain. After failing course of nonoperative care she is here for surgical invention. Principal Diagnosis Lumbar spinal stenosis with neurogenic claudication Discharge Data Allergies Allergy/AdvReac Type Severity Reaction Status Date / Time levofloxacin Allergy Unknown ITCHY HIVES Verified 05/07/22 06:30 ofloxacin Allergy Unknown RASH Verified 05/07/22 06:30 pioglitazone Allergy Unknown ITCHING Verified 05/07/22 06:30 Sulfa (Sulfonamide Allergy Unknown itchy Verified 05/07/22 06:30 Antibiotics) KNEE GEL SHOT Allergy Unknown SWELLING Uncoded 05/07/22 06:30 AND BRUISING Consultations 05/07/22 12:42 Consult Hospitalist Routine 05/17/22 07:37 Consult Nephrology Routine Procedures Performed Operation Date: 05/07/22 07:45 Actual Procedures p L2-L4 Decompression and Fusion, Spinal Cord Monitoring(Not Applicable) - Cornelius Hardy DO s L4-L5 Hardware Removal,(Not Applicable) - Cornelius Hardy DO Ordered Studies 05/07/22 07:45 FL lumbar spine 2-3V Routine 05/20/22 10:36 US venous doppler UE LT Urgent Hospital Course (1) Neurogenic claudication due to lumbar spinal stenosis: Patient underwent lumbar decompression fusion tolerated this well was taken to orthopedic floor. Postoperatively she had a prolonged course struggling with physical therapy and Occupational Therapy and hyponatremia. She steadily improved over the course of her stay. She is neurologically intact with good strength testing lower extremities and becoming more more independent. She is subsequently discharged home with home health. Discharge orders instructions from the chart for further view. Total Time Total Time Spent Total Time Spent (In Minutes): 20 minutes Discharge Plan Discharge Items Patient Disposition: Home - Home Health Services Reason For Visit: Spinal Stenosis, Lumbar Region with neurogenic Cla Discharge Diagnosis: Spinal stenosis with neurogenic claudication Activity: As commented below Non-emergency contact: Primary Care Provider Call non-emergency contact if: you have any medication questions Follow-up/Referrals: Millie Edwards MD [Primary Care Provider] - Diet: Regular Addtl Attending Provider Instructions: ACTIVITY RECOMMENDATIONS: SELF CARE INSTRUCTIONS AFTER THORACIC/LUMBAR FUSIONS 1. You may walk to your tolerance. It is good exercise for your legs and back. Expect some back and intermittent leg aches and pains. 2. You may perform "counter-top" level activities (make a sandwich, lenard with a project, etc.). 3. No bending or lifting of more than 10 pounds or back twisting of any nature (roll like a log when turning in bed). 4. You may ride in a car for 20-30 minutes at a time. No driving until after your first visit with your doctor. 5. Frequent changes of position and restricting sitting to 30 minutes at a time will help limit the amount of back spasms and stiffness you may experience. 6. You may discontinue the use of ambulatory aids (cane, crutches, etc.) once your strength and confidence allow. 7. You may hearing aid fitter the shower and let water strike your incision when you arrive home at least once daily. Do not take a tub bath, sit in a hot tub or go into a swimming pool until after your first recheck in the office. SPECIAL CARE INSTRUCTIONS: VERY IMPORTANT TO READ AND REVIEW A. Your surgical incision has been closed with a cosmetic suture under the skin that will dissolve in about 6 weeks. In 14 days, you can use a pair of clean scissors and cut the suture that is left outside of the skin at the ends of your incision. 1. The small skin tapes can be removed 7 days after surgery if they have not fallen off by that point. 2. You may keep the wound open to air as much as possible to promote healing after post-op day number 5 unless told otherwise by your doctor. 3. If you think the wound looks like it is becoming infected (redness or worsening drainage) and/or you are experiencing fever, chill or worsening back pain and muscle spasms, contact the office so that we may evaluate you as soon as possible. B. Complications are uncommon, but please contact us if you have any signs or symptoms of: 1. wound infection (fever higher than 102.5 degrees F, redness, separation of wound, drainage, or increasing pain from the incision) 2. blood clots in legs (pain, swelling, redness and warmth in legs) 3. urinary tract infection (fever higher than 102.5 degrees F, burning upon urination or increased frequency of urination) 4. nerve problems (inability to walk on your toes or heels, numbness, loss of bowel or bladder control) 5. any other symptoms that concern you C. Please call the office at if you have any concerns or questions about your operation or recovery. D. No smoking! Smoking drastically decreases the chance of a solid fusion. E. Do not take any anti-inflammatory medications (Indocin, Advil, Motrin, Aspirin, Naprosyn, etc.) as these may inhibit the chance of a solid fusion. Tylenol is okay to take for pain. MANAGING PAIN AFTER SPINAL SURGERY 1. Narcotic medication is intended for short-term use and will be provided for surgical pain. Surgical pain usually lasts for a period of 4-6 weeks. Narcotic medication includes Percocet, Vicodin, Darvocet, Tylenol #3 or Lortab. 2. Longer-term pain is more appropriately treated with non-narcotic medication such as Tylenol ES. 3. Muscle spasm is not appropriately treated with narcotics. Muscle relaxers such as Soma, Flexeril or Skelaxin can be used along with Tylenol ES. 4. Remember that we all live with some "aches and pains". This is not unusual or uncommon after an injury or as we get older. a. Back pain is expected and may include muscle spasms for 4 to 6 weeks after surgery. The pain should gradually improve. If the pain worsens for no apparent reason, please contact the office. b. Intermittent leg pain may also be experienced and should not be concerned about unless it worsens for no apparent reason. If so, please contact the office. 5. We will provide appropriate medication within the normal guidelines of their prescribed use. We will also be very cautious and aware of potential abuse and extended duration of patients' medication needs. a. Pain medications are for your comfort and to assist with sleep and rest so that the tissue can heal. They are not provided in order to return to normal activity and should not be used through the day. To do so or worsening pain at night can result from ongoing tissue damage and development of tolerance to the prescribed medicine. 6. Please allow 2-3 days to process refills. Prescriptions will not be mailed but must be picked up at the office. FOLLOW UP VISIT: Keep your scheduled follow-up appointment. Any questions, please call the office at . Pending Studies at Discharge: No Stand-Alone Forms: My [facility], Smoking Cessation Medications and DC Order Prescriptions: New tramadol 50 mg tablet 50 mg PO Q6H PRN (Reason: pain, moderate) Qty: 30 RF: 0 oxycodone 5 mg tablet 5 mg PO Q6H PRN (Reason: pain, severe) Qty: 30 RF: 0 ferrous sulfate 325 mg (65 mg iron) tablet 325 mg PO Q OTHER DAY Qty: 30 RF: 0 Continued levalbuterol HCl 0.63 mg/3 mL solution for nebulization 0.63 mg INH TID PRN (Reason: shortness of breath or wheezing) Qty: 360 RF: 5 Motegrity 2 mg tablet 2 mg PO QAM Qty: 90 RF: 3 albuterol sulfate [Ventolin HFA] 90 mcg/actuation HFA aerosol inhaler 2 puff INH Q4H PRN (Reason: Shortness Of Breath Or Wheezing) Qty: 54 RF: 1 metoprolol succinate 200 mg tablet extended release 24 hr 200 mg PO QAM Qty: 90 RF: 3 dexlansoprazole 60 mg capsule,biphase delayed releas 60 mg PO QAM Qty: 90 RF: 3 ondansetron 4 mg tablet,disintegrating 4 mg PO Q8H PRN (Reason: Nausea And Vomiting) Qty: 120 RF: 3 clopidogrel 75 mg tablet 75 mg PO QAM Qty: 90 RF: 3 diltiazem HCl 420 mg capsule,extended release 24 hr 420 mg PO QAM Qty: 90 RF: 3 multivitamin [Multiple Vitamins] tablet 1 tab PO QAM RF: 0 cholecalciferol (vitamin D3) 25 mcg (1,000 unit) tablet 2,000 unit PO QAM RF: 0 Hold Instructions: for 12wk (DME) lancets [OneTouch Delica Lancets] 33 gauge misc See Rx Instructions .ROUTE .MEDSUPPLY Qty: 100 RF: 0 (DME) pen needle, diabetic [BD Ultra-Fine Mini Pen Needle] 31 gauge x 3/16" needle See Dose Instructions .ROUTE .MEDSUPPLY Qty: 300 RF: 1 (DME) inhaler,assist devices,access Device See Rx Instructions .MEDSUPPLY Qty: 1 RF: 0 Humulin R U-500 (Conc) Kwikpen 500 unit/mL (3 mL) insulin pen 65 - 80 unit SQ UD RF: 0 sucralfate 100 mg/mL suspension 10 ml PO BID Qty: 420 RF: 3 cyanocobalamin (vitamin B-12) 1,000 mcg tablet 1,000 mcg PO QAM RF: 0 bupropion HCl 150 mg tablet extended release 24 hr 150 mg PO QAM Qty: 90 RF: 1 Hold Instructions: to assess anxiety duloxetine 30 mg capsule,delayed release(DR/EC) 30 mg PO QAM Qty: 90 RF: 1 chlorpheniramine maleate 4 mg tablet 4 mg PO UD PRN (Reason: cough) RF: 0 (DME) OneTouch Ultra Test Strip See Rx Instructions .Route RF: 0 Advair HFA 230-21 mcg/actuation HFA aerosol inhaler 2 inh inhalation BID 90 Days Qty: 3 RF: 3 ipratropium bromide 21 mcg (0.03 %) spray,non-aerosol 2 spray intranasal BID Qty: 30 RF: 2 valacyclovir 500 mg tablet 500 mg PO UD PRN (Reason: cold sores) RF: 0 atorvastatin 80 mg tablet 80 mg PO QPM Qty: 90 RF: 3 spironolactone 50 mg tablet 50 mg PO QAM Qty: 90 RF: 3 Hold Instructions: low sodium metformin 500 mg tablet extended release 24 hr 500 mg PO BID Qty: 180 RF: 1 (DME) blood glucose control, normal [OneTouch Ultra Control] Solution See Rx Instructions .Route Qty: 1 RF: 0 alprazolam 0.25 mg tablet 0.25 mg PO BID PRN (Reason: anxiety) Qty: 60 RF: 0 polyethylene glycol 3350 [Miralax] 17 gram/dose Powder 17 g PO HS RF: 0 Spiriva Respimat 2.5 mcg/actuation mist 2 puffs INH QAM RF: 0 losartan 25 mg tablet 25 mg PO QAM RF: 0 cyclobenzaprine 5 mg Tablet 5 mg PO UD PRN (Reason: Muscle Spasm) RF: 0 doxepin 75 mg Capsule 75 mg PO HS RF: 0 mometasone 50 mcg/actuation spray,non-aerosol 2 spray intranasal UD PRN (Reason: Nasal Congestion) RF: 0 codeine-guaifenesin 10-100 mg/5 mL liquid 5 ml PO UD PRN (Reason: cough) RF: 0 Discharge Orders: Discharge Order (Routine); Ordered 05/21/22 Ordered By: Cornelius Hardy Admission Data Admit Date/Time: 05/07/22 10:29 Attending Provider: Cornelius Hardy Admit Provider: Cornelius Hardy Primary Care Provider: Millie Edwards Other Providers: Junior Muñoz [facility] ; Devonte Cantrell ; Sulaiman Barreto ; [facility]
[2022-05-21] MEDS: DULoxetine HCL 30 MG CAP PO SCH (08:50)
[2022-05-21] MEDS: buPROPion XL 150 MG TABCR PO SCH (08:50)
[2022-05-21] MEDS: SUCRALFATE 1 GM/10 ML UDC PO SCH (08:50)
[2022-05-21] MEDS: METOPROLOL SUCC 50MG EXT REL TAB PO SCH (08:50)
[2022-05-21] MEDS: SODIUM CHLORIDE 1 GM TABLET PO SCH (08:50)
[2022-05-21] MEDS: MULTIVITAMIN TAB PO SCH (08:50)
[2022-05-21] MEDS: CHOLECALCIFEROL 1,000 UNITS 25 MCG TAB PO SCH (08:50)
[2022-05-21] MEDS: CYANOCOBALAMIN (B-12) 500 MCG TABLET PO SCH (08:51)
[2022-05-21] MEDS: FUROSEMIDE 20 MG TAB PO SCH (08:51)
[2022-05-21] MEDS: dilTIAZem ER 120 MG CAPCR PO SCH (08:51)
[2022-05-21] MEDS: CLOPIDOGREL BISULFATE 75 MG TAB PO SCH (08:51)
[2022-05-21] MEDS: PANTOprazole 40 MG TAB PO SCH (08:51)
[2022-05-21] MEDS: UMECLIDINIUM BROMIDE 62.5MCG/BLISTER 7 PUFFS/INHALER INH SCH (08:52)
[2022-05-21] MEDS: dilTIAZem ER 180 MG CAPCR PO SCH (08:52)
[2022-05-21] MEDS: FLUTICASONE/VILANTEROL 100/25MCG 14 PUFFS/INHALER INH SCH (08:53)
[2022-05-21] MEDS: IPRATROPIUM BROMIDE NASAL SPRAY 0.06% 15ML NAE SCH (08:54)
[2022-05-21] MEDS: INSULIN HUMAN NPH SC SCH (08:54)
[2022-05-21] MEDS: POLYETHYLENE (MIRALAX) 17 GM PACK PO SCH (08:57)
[2022-05-21] MEDS: INSULIN ASPART PER UNIT SC SCH ×2 (09:01→12:47)
--- NOTE | 2022-05-21 10:45 | Hospitalist Progress Note ---
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 (previously on HCTZ, d/c'd earlier this year) - Multiple doses of IV lasix over this past weekend without improvement in Na - 1gm Nacl tablets x 2 days earlier in week, subsequently developing pulmonary edema and additional lasix provided which improved breathing status - Suspect underlying SIADH vs reset osmostat due to anesthesia compounded by tramadol use for pain (will avoid Tramadol) * TSH WNL and CT chest in oct 2021 w/o findings - Nephrology on consult, appreciate assistance * THREE 100ml bags 3% nacl with 20mg IV lasix 05/17 (BNP slight elevated, EHCO no change), * One 100ml 3% AM 05/18 along with starting Nacl 2gm PO BID and lasix 20mg PO QAM - Improving and has returned to baseline Na of 130 (2) Left upper extremity swelling: Plan: - Site of recent IV that infiltrated - Superficial thrombus noted, apply warm compresses PRN - No DVT noted (3) Neurogenic claudication due to lumbar spinal stenosis: Plan: POD# 13 fusion/decompression L4-L5, posterior fusion L2-L4 with Dr Hardy on 05/07/22 - PT/OT/pain management/bowel regimen/DVT prophylaxis per primary service (4) Fall: Plan: - Occurred 6 walking to bathroom with , suspect due to weakness/deconditioning - Repeat lumbar imaging with hardware intact. No LOC/hit head - PT/OT (5) Acute metabolic encephalopathy: Plan: - Secondary to doxepin (inappropriately on med rec put in as a morning m edication rather than at night which was changed) + worsening hyponatremia - RESOLVED 05/19-much improved energy/appetite with improvement of sodium - Pain control-tolerating oxycodone/tylenol as needed. would avoid further tramadol (6) Postoperative anemia: Plan: - Hgb dropped to 7.4 surgery and initial plans written to start outpatient iron - Given SOB/o2 requirement and Hgb <8, transfused 1 u earlier in the week 05/13 and then received Venofer x1 - Thrombocytosis likely reactive to previous anemia - H&H stable (7) Hypoxia: Plan: hx intrinsic asthma, seen in past by allergy/immunology, ?need for pulm in f/u after discharge - Suspect combo of anesthesia + hypervolemia - Continue incentive spirometer - This issue has RESOLVED (8) Ileus: Plan: - Resolved. Pain medication induced. TSH wnl. - Moved bowels again am 05/18 - Monitor/continue bowel regimen (9) Diabetes mellitus, type 2: Plan: - Latest outpatient A1C:9.3 from March. - Pharmacy consulted for glycemic control, controlled and signed off - bsgs acceptable now that no longer getting steroids or IV venofer containing dextrose - continue ISS (10) Depression with anxiety: Plan: - resume her home medication (11) TIA (transient ischemic attack): Plan: reported hx tia in past, however patient with hx R hemispheric stroke, moderate small vessel ischemic disease on MRI brain Jan 2021 (prior MRI 2018 neg for cva, CTA Dec 21 with indeterminate subcentimeter lacunar infarct right frontal lobe santillan radiate and R internal capsule new from 2018 with worsening microvascular ischemic disease) h/o peripheral neuropathy with chronic balance impairment - Continue BB/Statin/resumed Plavix on 05/16 - BPs control -- has been stable (12) Hypertension: Plan: - Continue on her usual dose of diltiazem, metoprolol - Losartan/spironolactone on hold to prevent salt losses given SIADH/Hyponatremia as above - BP stable (13) Gastroesophageal reflux disease: Plan: - Dexlansoprazole switched to pantoprazole per hospital pharmacy. Continue Carafate. (14) Chronic obstructive pulmonary disease: Plan: Hx of ?intrinsic asthma, No acute exacerbation. - Continue Spiriva Respimat or hospital formulary equivalent (15) Hypomagnesemia: Plan: replaced/resolved Plan: No further recommendations for patient at this time. From our standpoint, she is medically stable for discharge. Na has returned to baseline. Pt is requesting home with home health which is to be arranged by CM. Thank you for allowing us to participate in the care of your patient, will sign off. Please feel free to notify if any acute needs should arise. Plan d/w Dr. Barreto. Admission and Anticipated Discharge Date Admission Date: May 07, 2022 Subjective Patient seen on rounds today. She is resting comfortably in bed. Reports back pain is a 5/10 currently. She has now requested to be discharged to home with home health since the rehab facilities that referrals were sent to are not sure when they will have an opening. She denies loss of bowel/bladder control. Had a BM yesterday after dulcolax suppository. Voiding w/o issue. Denies chest pain or dyspnea. Review of Systems Review of Systems: All systems reviewed and are unremarkable except as noted in HPI and below. Denies fever, chills, fatigue, headache, nasal congestion, sore throat, cough, chest pain, shortness of breath, palpitations, orthopnea, PND, abdominal pain, n/v/d, constipation, dysuria, hematuria, frequency, joint pain or swelling, easy bruising or bleeding, skin lesions or rashes. Physical Exam Physical Exam: GENERAL: Well-developed, well-nourished 77 WF. NAD. LUNGS: Clear to auscultation bilaterally. No W/R/R. CARDIOVASCULAR: Regular rate and rhythm. ABDOMEN: Soft, non-tender and non-distended. BS normoactive x 4 quad. EXTREMITIES: Edema of proximal LUE at site of recent IV. Mildly tender. No erythema. Peripheral pulses +2/4. NEUROLOGIC: A&O x3. Nonfocal PSYCHIATRIC: Cooperative. Appropriate mood and affect. SKIN: Warm, dry, intact. No rashes or lesions. Results & Data Results & Data ([facility]) Vital Signs (Past 12 Hours) Vital Signs Temp Pulse Resp BP Pulse Ox 05/21/22 07:50 36.6 C 64 18 133/75 93 05/21/22 07:41 66 16 97 05/21/22 00:10 62 18 95 Laboratory Results 05/20/22 05:56 05/21/22 06:48 Diagnostic Findings Extremity Venous Study 05/20/22 10:36 LEFT UPPER EXTREMITY VENOUS DOPPLER ULTRASOUND CLINICAL HISTORY: Left upper extremity swelling. COMPARISON STUDY: No previous studies for comparison. TECHNIQUE: Sonography of the venous system of the left upper extremity was performed. FINDINGS: No deep venous thrombus is identified within the left upper kidney. Note was made of superficial thrombus within the left cephalic vein which extends from the upper arm to the antecubital fossa. IMPRESSION: 1. Superficial thrombus within the left cephalic vein which extends from the upper arm to the antecubital fossa. 2. No deep venous thrombus within the left upper extremity. ACT 112: Negative or not required by law. Electronically signed by: Germán Broderick M.D. 05/20/2022 12:02 PM PG Care Time/CCT Total # of Minutes Spent Total Time Spent with Patient: Total time spent is greater than 50% in coordination of care (as documented) at patient's floor/unit and/or counseling patient: Coding Level of Care Code 55176 Subseq Hosp Care Lvl 2 Diagnoses Hyponatremia E87.1 Left upper extremity swelling M79.89 Neurogenic claudication due to lumbar spinal stenosis M48.062 Fall W19.XXXA Acute metabolic encephalopathy G93.41 Postoperative anemia D64.9 Hypoxia R09.02 Ileus K56.7 Diabetes mellitus, type 2 E11.9 Depression with anxiety F41.8 TIA (transient ischemic attack) G45.9 Hypertension I10 Gastroesophageal reflux disease K21.9 Esophagitis presence: without esophagitis Chronic obstructive pulmonary disease J44.9 Hypomagnesemia E83.42 (1) Gastroesophageal reflux disease Esophagitis presence: without esophagitis Qualified Code(s): K21.9 - Gastro- esophageal reflux disease without esophagitis
[2022-05-22] MEDS ORDERED: SODIUM CHLORIDE 1 GM TABLET PO SCH (09:00)
== END 2022-05-21 14:44 | disposition home health service (06) | DRG 453 ==
LOC: ASU 06:05 → 3E 10:29

== ENCOUNTER 2023-10-06 10:01 | Inpatient (IN) ==
[2023-10-06] MEDS ORDERED: ONDANSETRON INJ 2 MG/ML 2 ML VIAL IV STA (10:50)
[2023-10-06] MEDS ORDERED: SODIUM CHLORIDE 0.9% 500 ML IV ONE (10:50)
[2023-10-06] MEDS ORDERED: MoRPHine SULFATE 4 MG/ML 1 ML CARP\\VIAL IV STA ×2 (10:50→19:10)
--- NOTE | 2023-10-06 11:09 | XRay Report ---
XR chest 1V portable HISTORY: Chest pain, nonspecific COMPARISON: Chest 08/26/2022. FINDINGS: No pneumothorax. No pleural effusions. The lungs are clear. The heart is normal in size. Th ere is left-sided dual-chamber pacemaker. Cervical spinal fusion hardware again noted. There are dege nerative changes within the shoulders. Prior vertebroplasty within the mid thoracic spine. Mild event ration right hemidiaphragm persists. IMPRESSION: No significant change compared to the prior study. No acute process. ACT 112: Negative or not required by law. Electronically signed by: Cornell Fisehr M.D. 10/06/2023 11:08 AM
[2023-10-06 11:11] LABS: Albumin Level 4.4 gm/dl (3.4-5.0); Bilirubin,Total 0.4 mg/dl (0.2-1.0); Calcium 9.3 mg/dl (8.6-10.3)
--- NOTE | 2023-10-06 11:17 | Emergency Department Note ---
Impression & Plan Acute non-ST elevation myocardial infarction (NSTEMI), Abnormal EKG, Elevated troponin I level, Acute hyperglycemia ED Provider Note NAME: AGUSTINA ARTHUR AGE: 78 SEX: F : 1945 ARRIVES VIA: Ambulance INFORMANT: Patient, ED PROVIDER(S): Zia Childs DO CHIEF COMPLAINT: Chest pain HPI: The patient is a 78-year-old female who presented to the emergency department for an evaluation of chest pain. The patient describes anterior chest pain that she describes as a pressure. She denies having any nausea or vomiting. She denies any radiation of the pain. She has no abdominal pain. She denies having any leg swelling or leg pain. She states the pain is worsened with exertion. She does have a history of a pacemaker. She has a history of a second-degree heart block in the past. She recently saw her central supply clerk for pacemaker check. She is never had a heart catheterization or stress test. ROS: See above HPI for pertinent positives & negatives. A total of 10 systems reviewed and were otherwise negative. PAST MEDICAL HISTORY: See Below PAST SURGICAL HISTORY: See Below FAMILY HISTORY: See Below SOCIAL HISTORY: See Below HOME MEDICATIONS: See Below ALLERGIES: See Below VITALS: See Below PHYSICAL EXAMINATION: GENERAL: The patient is awake and alert. She appears to be uncomfortable and somewhat anxious. EYES: The conjunctivae are clear. The pupils are round and reactive. EARS, NOSE, MOUTH AND THROAT: The nose is without any evidence of any deformity. NECK: The neck is nontender and supple. RESPIRATORY: Normal respiratory effort is noted there is no evidence of wheezing rhonchi or rales CARDIOVASCULAR: Regular rate and rhythm noted there no murmurs rubs or gallops normal S1 normal S2. GASTROINTESTINAL: The abdomen is soft. Abdomen is nontender. MUSCULOSKELETAL/EXTREMITIES: There is no evidence of gross deformity full range of motion is noted in the hips and shoulders. SKIN: There is no obvious evidence of any rash. There are no petechiae, pallor or cyanosis noted. NEUROLOGIC: Patient is awake alert and oriented x3 MEDICAL DECISION MAKING: The patient is a 78-year-old female who presented to the emergency department for an evaluation of chest pain. The patient was found to have significant EKG changes compared to previous tracing. I discussed the patient's laboratory and radiographic studies with her. She was treated with aspirin and nitroglycerin prior to arrival with only minimal improvement of her symptoms. She was further ordered pain medication as well as IV heparin. I discussed the patient's laboratory and radiographic studies with her. I discussed her condition with the on-call [facility] central supply clerk as well as the on-call bingo floater. I discussed her condition with the [facility] hospitalist. She was felt to be a good patient for inpatient management. Triage Nursing notes reviewed. Prior medical records reviewed Vital Signs: reviewed and remarkable for no significant abnormalities Differential diagnosis: Cardiac ischemia, aortic dissection, pulmonary embolism, pneumothorax, pneumonia, pericarditis, myocarditis, esophageal rupture, GERD, cholecystitis, pancreatitis, musculoskeletal, as well as other pathologies. ER treatment provided: See below Diagnostics interpreted by me: ECG: EKG was obtained in the emergency department. My interpretation is sinus tachycardia at 122 bpm. Poor R wave progression was noted. Nonspecific ST segment abnormalities were noted. This was compared to a tracing from September 23, 2022. Paced rhythm has been replaced with sinus tachycardia. A second EKG was obtained in the emergency department. My interpretation is sinus tachycardia 109 bpm. There is no ectopy. Poor R wave progression was noted. This compares similar to the earlier tracing. Cardiac Monitoring: An order was placed for continuous cardiac monitoring. The monitor shows a rate of 81 bpm with sinus rhythm Laboratory studies: As stated above and show below. Imaging studies: See below. Radiographic imaging was reviewed by myself Consultation(s): I discussed this case with Dr. Hinds who is on-call for [facility] cardiology. I discussed this case with Dr. Padron who is on-call for the [facility] hospitalist group. I discussed this case with Dr. Javier who is on-call for interventional cardiology. ED COURSE: Procedures: none Critical Care: I have personally spent greater than 55 minutes of critical care time in the direct management of this patient. This includes bedside care, interpretation of diagnostic studies, and testing, discussion with consultants, patient, and family members, and other required patient management activities. This 55 minutes is in excess of all separately billable procedures. Past Med/Surg History Medical History Migraines Mixed conductive and sensorineural hearing loss of right ear with restricted hearing of left ear Eustachian tube dysfunction Diabetic peripheral neuropathy associated with type 2 diabetes mellitus Poorly controlled type 2 diabetes mellitus Hypomagnesemia Knee problem LEFT KNEE GEL SHOT INJECTION 5 WEEKS AGO, HAD SWELLING AND BRUISING AFTER - PT DISCUSSED WITH DR GREENWOOD AND WAS TOLD SHE WAS ALLERGIC TO IT AND NOT TO RECEIVE IN THE FUTURE - MILD BRUISING REMAINS Difficult intravenous access Pacemaker Ирина 2nd Degree AV Block with 2:1 Conduction s/p Medtronic Tasha XT DR KELLY Dual Chamber Pacemaker 04/12/21 LAST PACEMAKER CHECK 12/2021 Cancer HX BREAST 7 YR AGO, R mastectomy and lymph node excision, No chemo or XRT RUE limb restriction Chronic obstructive pulmonary disease Stable per pt Gastroparesis Primary hypertension controlled per pt Frequent falls D/t issues with back currently per pt, MOST RECENT FALL 7 WEEKS AGO - LEFT LEG BURSA SAC RUPTURE AND HURT RIGHT SHOULDER PER PT Chronic cough Nonproductive, ongoing evaluation/management. 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 Webber Abnormal CT scan of head Age-indeterminate subcentimeter lacunar infarct of the right frontal lobe santillan radiata extending into the anterior limb of the right internal capsule -- new from 04/13/2019. Chronic lumbar pain Chronic constipation Duodenal hemorrhage HX GI BLEED No recent issues Complex regional pain syndrome type 1 affecting left shoulder Horners syndrome DROOPY EYES, BOTH - RIGHT IS WORSE AND GETS WORSE WITH FATIGUE TIA (transient ischemic attack) 01/2018--reason for plavix, no deficits Post-traumatic stress disorder Osteopenia Fatty liver Lumbar stenosis with neurogenic claudication Carotid stenosis, asymptomatic S/p right CEA (2013) - follows with Dr. Kohli Surgical History Pacemaker Medtronic, placed 03/2021, follows with [facility] History of carotid endarterectomy right, 2013 History of breast reconstruction Bilateral, Dr. Barr, Tanner Style 410 implant, size unknown History of colonoscopy with polypectomy History of anesthesia reaction difficulty waking with 1st back surgery @ [facility]--no issues since History of total hysterectomy with bilateral salpingo-oophorectomy (BSO) History of bilateral tubal ligation History of trigger finger x4--bilt hands History of surgery on left wrist plate in place History of carpal tunnel release of both wrists History of fusion of lumbar spine x4 History of fusion of cervical spine x3--"cant turn to the right" History of total right knee replacement (TKR) History of bladder suspension procedure History of esophagogastroduodenoscopy (EGD) History of cholecystectomy History of right breast biopsy malignant History of bilateral mastectomy h/o R breast CA-lymph node removal R side History of oral surgery gum sx History of bilateral cataract extraction Abdominoplasty (05/12/13) Family History Son Crohn's disease Sister Ulcerative colitis Family history of diabetes mellitus Mother Family history of diabetes mellitus Brother Family history of diabetes mellitus Other No family history of adverse response to anesthesia No family history of bleeding disorder Social History Smoking Status: Never smoker Second Hand Exposure: No; Do You Dip or Chew Tobacco: No; Hx Alcohol Use: Yes Alcohol type: beer Hx Substance Use: No Preferred Language: Maltese Communication Ability: Effective Grocery Clerk Marking Required: No Beliefs That Will Affect Care: None marital status: Current Living Situation: Spouse Current Living Situation Comment: LIVES WITH SPOUSE current occupational status: retired Feels Safe at Home: Yes Diet: diabetic during the past year weight has: decreased > 10 lbs Dental Care, Regularly: Yes Physical Activity Frequency: Daily Seatbelt Use: always Sunscreen Use: Yes Assistive Devices: Cane Allergies Allergies Allergy/AdvReac Type Severity Reaction Status Date / Time buspirone Allergy Intermediate itchy all Verified 10/01/23 10:52 over and heart palpitaitons with tachycardia levofloxacin Allergy Unknown ITCHY HIVES Verified 10/01/23 10:52 ofloxacin Allergy Unknown RASH Verified 10/01/23 10:52 pioglitazone Allergy Unknown ITCHING Verified 10/01/23 10:52 Sulfa (Sulfonamide Allergy Unknown itchy Verified 10/01/23 10:52 Antibiotics) KNEE GEL SHOT Allergy Unknown SWELLING Uncoded 10/01/23 10:52 AND BRUISING Home Meds Home Medications Medication Instructions Recorded Confirmed cyanocobalamin (vitamin B-12) 1,000 mcg PO QAM 05/13/19 10/06/23 1,000 mcg tablet multivitamin (Multiple Vitamins 1 tab PO QAM 07/01/19 10/01/23 tablet) polyethylene glycol 3350 17 17 g PO QAM 05/19/20 10/06/23 gram/dose oral powder (Miralax) tiotropium bromide 2.5 2 puffs inhalation QAM 07/28/20 10/06/23 mcg/actuation mist for inhalation (Spiriva Respimat) blood sugar diagnostic ([facility] 11/20/21 10/01/23 Ultra Test strips) cholecalciferol (vitamin D3) 25 2,000 unit PO QAM 12/12/21 10/06/23 mcg (1,000 unit) tablet chlorpheniramine maleate 4 mg 4 mg PO UD PRN cough 02/19/22 10/01/23 tablet mometasone 50 mcg/actuation nasal 2 spray intranasal UD PRN Nasal 04/15/22 10/01/23 spray Congestion lancets 33 gauge ([facility] #100 ea 09/06/22 10/01/23 Lancets) amoxicillin 500 mg capsule 2,000 mg PO UD PRN 1 hr prior to 09/23/22 10/06/23 dental appt ipratropium bromide 21 mcg (0.03 2 spray intranasal BID PRN 03/03/23 10/01/23 %) nasal spray Congestion doxepin 25 mg capsule 25 mg PO HS 10/06/23 10/06/23 ezetimibe 10 mg tablet (Zetia) 10 mg PO HS 10/06/23 10/06/23 insulin regular hum U-500 conc 500 60 unit subcut BID 10/06/23 10/06/23 unit/mL(3 mL) subcut pen (Humulin R U-500 (Conc) Insulin Kwikpen) Previous Rx's Medication Instructions Recorded levalbuterol HCl 0.63 mg/3 mL 0.63 mg (3 mL) inhalation TID PRN 12/23/19 solution for nebulization shortness of breath or wheezing #360 mL metoprolol succinate 200 mg 200 mg PO QAM #90 tabs 11/07/21 tablet,extended release 24 hr metformin 500 mg tablet,extended 500 mg PO BID #180 tabs 11/26/21 release 24 hr inhaler,assist devices,access #1 ea 12/19/21 OneTouch Ultra Control (blood #1 ea 01/16/22 glucose control, normal) fluticasone propionate 230 2 inh inhalation BID 90 days #3 01/21/22 mcg-salmeterol 21 mcg/actuation Inhalers HFA inhaler (Advair HFA) albuterol sulfate 90 mcg/actuation See Rx Instructions .Route 07/08/22 aerosol inhaler (Ventolin HFA) .COMPLEX #54 grams uakdkjvkdo-msgfrnh-krmrsdbw 50 1 cap PO Q4H PRN pain #1 cap 07/30/22 mg-325 mg-40 mg capsule FreeStyle Radha 2 Sensor (flash #6 ea 09/06/22 glucose sensor) ondansetron 4 mg disintegrating 4 mg PO Q8H PRN Nausea And 10/22/22 tablet Vomiting #120 tabs pen needle, diabetic 31 gauge x #300 ea 01/20/2302/13" (BD Ultra-Fine Mini Pen Needle) olmesartan 5 mg tablet 5 mg PO DAILY #90 tabs 02/25/23 chlorpheniramine maleate 4 mg 4 mg PO Q12H PRN cough #60 tabs 04/21/23 tablet blood-glucose meter #1 ea 05/26/23 diltiazem HCl 420 mg capsule,24 420 mg PO QAM #180 caps 06/26/23 hr,extended release duloxetine 30 mg capsule,delayed 30 mg PO QAM #90 caps 06/26/23 release valacyclovir 500 mg tablet 500 mg PO UD PRN genital herpes 06/26/23 #10 tabs FreeStyle Radha 2 [place] (flash #1 ea 07/11/23 glucose scanning reader) alprazolam 0.25 mg tablet 0.25 mg PO BID PRN anxiety #60 tabs 07/21/23 clopidogrel 75 mg tablet 75 mg PO DAILY #90 tabs 07/31/23 dexlansoprazole 60 mg 60 mg PO QAM #90 caps 09/05/23 capsule,biphase delayed release (Dexilant) spironolactone 50 mg tablet 50 mg PO QAM #90 tabs 09/17/23 atorvastatin 80 mg tablet 80 mg PO QPM #90 tabs 09/24/23 prucalopride 2 mg tablet See Rx Instructions .Route 10/06/23 (Motegrity) .COMPLEX #90 tabs Results & Data (ED) Vital Signs Vital Signs - 24 hr 10/06/23 10:15 10/06/23 10:19 10/06/23 10:20 Temperature Temperature Source Pulse Rate 121 H 122 H Pulse Rate [Apical] Pulse Rate from SpO2 Sensor 120 H 122 H Pulse Rhythm [Apical] Pulse Strength [Apical] Respiratory Rate 21 18 Respiratory Effort / Characteristics Respiratory Depth Respiratory Pattern Blood Pressure Blood Pressure [Left Arm] Blood Pressure Mean Blood Pressure Mean [Left Arm] Blood Pressure Position [Left Arm] Pulse Oximetry 99 99 98 Oxygen Delivery Method Room Air Oxygen Flow Rate Sepsis Recent Fever Within 48 Hours Sepsis New/Unexplained Change in Mental Status Sepsis Action Taken by Nursing 10/06/23 10:30 10/06/23 10:33 10/06/23 10:40 Temperature 36.6 C Temperature Source Oral Pulse Rate 117 H Pulse Rate [Apical] Pulse Rate from SpO2 Sensor 116 H Pulse Rhythm [Apical] Pulse Strength [Apical] Respiratory Rate 23 17 20 Respiratory Effort / Characteristics Non-Labored Respiratory Depth Normal Respiratory Pattern Regular Blood Pressure 129/91 Blood Pressure [Left Arm] Blood Pressure Mean 103 Blood Pressure Mean [Left Arm] Blood Pressure Position [Left Arm] Pulse Oximetry 98 98 Oxygen Delivery Method Room Air Oxygen Flow Rate Sepsis Recent Fever Within 48 Hours No Sepsis New/Unexplained Change in Mental Status No Sepsis Action Taken by Nursing No Action Required 10/06/23 10:45 10/06/23 10:50 10/06/23 10:51 Temperature Temperature Source Pulse Rate Pulse Rate [Apical] 116 H Pulse Rate from SpO2 Sensor 117 H Pulse Rhythm [Apical] Pulse Strength [Apical] Respiratory Rate 21 22 Respiratory Effort / Characteristics Non-Labored Respiratory Depth Normal Respiratory Pattern Blood Pressure Blood Pressure [Left Arm] 129/91 Blood Pressure Mean Blood Pressure Mean [Left Arm] 103 Blood Pressure Position [Left Arm] Pulse Oximetry 98 100 99 Oxygen Delivery Method Room Air Room Air Oxygen Flow Rate 0 Sepsis Recent Fever Within 48 Hours Sepsis New/Unexplained Change in Mental Status Sepsis Action Taken by Nursing 10/06/23 11:00 10/06/23 11:10 10/06/23 11:20 Temperature Temperature Source Pulse Rate 117 H 116 H 111 H Pulse Rate [Apical] Pulse Rate from SpO2 Sensor 116 H 115 H 113 H Pulse Rhythm [Apical] Pulse Strength [Apical] Respiratory Rate 23 26 H 16 Respiratory Effort / Characteristics Respiratory Depth Respiratory Pattern Blood Pressure Blood Pressure [Left Arm] Blood Pressure Mean Blood Pressure Mean [Left Arm] Blood Pressure Position [Left Arm] Pulse Oximetry 99 100 97 Oxygen Delivery Method Oxygen Flow Rate Sepsis Recent Fever Within 48 Hours Sepsis New/Unexplained Change in Mental Status Sepsis Action Taken by Nursing 10/06/23 11:30 10/06/23 11:40 10/06/23 11:50 Temperature Temperature Source Pulse Rate 128 H 110 H 109 H Pulse Rate [Apical] Pulse Rate from SpO2 Sensor 110 H 111 H 109 H Pulse Rhythm [Apical] Pulse Strength [Apical] Respiratory Rate 19 16 18 Respiratory Effort / Characteristics Respiratory Depth Respiratory Pattern Blood Pressure Blood Pressure [Left Arm] Blood Pressure Mean Blood Pressure Mean [Left Arm] Blood Pressure Position [Left Arm] Pulse Oximetry 99 97 100 Oxygen Delivery Method Oxygen Flow Rate Sepsis Recent Fever Within 48 Hours Sepsis New/Unexplained Change in Mental Status Sepsis Action Taken by Nursing 10/06/23 12:00 10/06/23 12:10 10/06/23 12:18 Temperature Temperature Source Pulse Rate 110 H 102 H Pulse Rate [Apical] Pulse Rate from SpO2 Sensor 110 H 103 H Pulse Rhythm [Apical] Pulse Strength [Apical] Respiratory Rate 22 25 H Respiratory Effort / Characteristics Respiratory Depth Respiratory Pattern Blood Pressure 143/91 H Blood Pressure [Left Arm] Blood Pressure Mean 94 Blood Pressure Mean [Left Arm] Blood Pressure Position [Left Arm] Pulse Oximetry 99 97 Oxygen Delivery Method Oxygen Flow Rate Sepsis Recent Fever Within 48 Hours Sepsis New/Unexplained Change in Mental Status Sepsis Action Taken by Nursing 10/06/23 12:18 10/06/23 12:34 10/06/23 14:45 Temperature Temperature Source Pulse Rate 107 H Pulse Rate [Apical] 116 H 53 L Pulse Rate from SpO2 Sensor 106 H Pulse Rhythm [Apical] Regular Regular Pulse Strength [Apical] Normal Normal Respiratory Rate 23 16 16 Respiratory Effort / Characteristics Non-Labored Non-Labored Respiratory Depth Normal Normal Respiratory Pattern Regular Regular Blood Pressure Blood Pressure [Left Arm] 118/75 106/65 Blood Pressure Mean Blood Pressure Mean [Left Arm] 89 78 Blood Pressure Position [Left Arm] Lying Lying Pulse Oximetry 98 96 96 Oxygen Delivery Method Room Air Room Air Oxygen Flow Rate Sepsis Recent Fever Within 48 Hours Sepsis New/Unexplained Change in Mental Status Sepsis Action Taken by Nursing 10/06/23 15:00 10/06/23 15:15 10/06/23 15:31 Temperature Temperature Source Pulse Rate Pulse Rate [Apical] 75 81 81 Pulse Rate from SpO2 Sensor Pulse Rhythm [Apical] Regular Regular Regular Pulse Strength [Apical] Normal Normal Normal Respiratory Rate 16 16 16 Respiratory Effort / Characteristics Non-Labored Non-Labored Non-Labored Respiratory Depth Normal Normal Normal Respiratory Pattern Regular Regular Regular Blood Pressure Blood Pressure [Left Arm] 89/63 L 108/74 106/61 Blood Pressure Mean Blood Pressure Mean [Left Arm] 71 85 76 Blood Pressure Position [Left Arm] Lying Lying Lying Pulse Oximetry 96 96 96 Oxygen Delivery Method Room Air Room Air Room Air Oxygen Flow Rate Sepsis Recent Fever Within 48 Hours Sepsis New/Unexplained Change in Mental Status Sepsis Action Taken by [place] Medications Current Medication List: was personally reviewed by me Laboratory Data Attestation: I reviewed the patient's lab results. 10/06/23 12:18 10/06/23 10:24 Lab Results 10/06/23 10/06/23 10/06/23 Range/Units 10:23 10:24 12:18 WBC Cancelled 7.68 RBC Cancelled 4.20 Hgb Cancelled 12.5 Hct Cancelled 37.1 MCV Cancelled 88.3 MCH Cancelled 29.8 MCHC Cancelled 33.7 RDW Std Deviation Cancelled 45.0 RDW Coeff of Rian Cancelled 13.9 Plt Count Cancelled 310 MPV Cancelled 10.0 Immature Gran % (Auto) Cancelled 0.8 Neut % (Auto) Cancelled 72.7 Lymph % (Auto) Cancelled 23.2 [place] % (Auto) Cancelled 2.2 Eos % (Auto) Cancelled 0.7 Baso % (Auto) Cancelled 0.4 Neut # (Auto) Cancelled 5.59 Lymph # (Auto) Cancelled 1.78 [place] # (Auto) Cancelled 0.17 Eos # (Auto) Cancelled 0.05 Baso # (Auto) Cancelled 0.03 Immature Gran # (Auto) Cancelled 0.06 Absolute Nucleated RBC Cancelled Nucleated RBC % (auto) Cancelled Neutrophils % (Manual) Cancelled Band Neutrophils % Cancelled Lymphocytes % (Manual) Cancelled Prolymphocyte % Cancelled Reactive Lymphs % (Man) Cancelled Monocytes % (Manual) Cancelled Eosinophils % (Manual) Cancelled Basophils % (Manual) Cancelled Metamyelocytes % (Man) Cancelled Myelocytes % (Man) Cancelled Promyelocytes % (Man) Cancelled Blast Cells % (Manual) Cancelled Plasma Cell % (Manual) Cancelled Other Cells % Cancelled Nucleated RBC % Cancelled Neutrophils # (Manual) Cancelled Band Neutrophils # Cancelled Total Absolute Neuts Cancelled Lymphocytes # (Manual) Cancelled Prolymphocyte # Cancelled Reactive Lymphs # Cancelled Total Abs Lymphocytes Cancelled Monocytes # (Manual) Cancelled Eosinophils # (Manual) Cancelled Basophils # (Manual) Cancelled Metamyelocytes # (Man) Cancelled Myelocytes # (Manual) Cancelled Promyelocytes # (Man) Cancelled Blast Cells # (Man) Cancelled Plasma Cell # (Manual) Cancelled Other Cells # Cancelled Nucleated RBCs # (Man) Cancelled Hypersegmented Neuts Cancelled Hyposegmented Neuts Cancelled Hypogranular Neuts Cancelled Large Granular Lymphs Cancelled # Lrg Granular Lymphs Cancelled Hairy Cells Cancelled Smudge Cells Cancelled Toxic Granulation Cancelled Toxic Vacuolation Cancelled Dohle Bodies Cancelled Clarissa Rods Cancelled Platelet Estimate Cancelled Hypogranular Platelets Cancelled Giant Platelets Cancelled Platelet Satelliting Cancelled RBC Morphology Cancelled Polychromasia Cancelled Hypochromasia Cancelled Poikilocytosis Cancelled Basophilic Stippling Cancelled Anisocytosis Cancelled Microcytosis Cancelled Macrocytosis Cancelled Spherocytes Cancelled Pappenheimer Bodies Cancelled Sickle Cells Cancelled Target Cells Cancelled Tear Drop Cells Cancelled Ovalocytes Cancelled Stomatocytes Cancelled [place] Bodies Cancelled Echinocytes Cancelled Acanthocytes (Spur) Cancelled Rouleaux Cancelled RBC Agglutinates Cancelled Schistocytes Cancelled Sezary Cell Cancelled PT 10.3 (9.0-12.0) Seconds INR 0.9 (0.9-1.1) APTT 20.5 L (21.0-31.0) Seconds PTT Ratio 0.7 Activ Coag Time Kaolin (94-140) SECONDS Sodium 132 L (136-145) mmol/L Potassium 4.0 (3.5-5.1) mmol/L Chloride 99 (98-107) mmol/L Carbon Dioxide 18 L (21-32) mmol/L Anion Gap 15 H (3-11) BUN 16 (6-23) mg/dl Creatinine 0.76 (0.6-1.2) mg/dl Est Cr Clr Drug Dosing 62.3 ml/min Est GFR ( Amer) 87.1 ml/min Est GFR (Non-Af Amer) 75.1 ml/min BUN/Creatinine Ratio 21.1 H (10-20) Glucose 359 H* (70-99(Fasting)) mg/dl POC Glucose 351 H* (70-99) mg/dl Calcium 9.3 (8.6-10.3) mg/dl Magnesium 1.3 L (1.7-2.4) mg/dl Total Bilirubin 0.4 (0.2-1.0) mg/dl AST 15 (13-39) U/L ALT 15 (7-52) U/L Alkaline Phosphatase 107 H (34-104) U/L Troponin I High Sens 273.6 H* 248.1 H* (0-14) pg/ml Total Protein 7.5 (6.0-8.3) gm/dl Albumin 4.4 (3.4-5.0) gm/dl Globulin 3.1 (2.5-4.0) gm/dl Albumin/Globulin Ratio 1.4 (0.9-2) Lipase 22 (11-82) U/L Blood Parasites ID Cancelled 10/06/23 10/06/23 Range/Units 13:43 14:07 WBC RBC Hgb Hct MCV MCH MCHC RDW Std Deviation RDW Coeff of Rian Plt Count MPV Immature Gran % (Auto) Neut % (Auto) Lymph % (Auto) [place] % (Auto) Eos % (Auto) Baso % (Auto) Neut # (Auto) Lymph # (Auto) [place] # (Auto) Eos # (Auto) Baso # (Auto) Immature Gran # (Auto) Absolute Nucleated RBC Nucleated RBC % (auto) Neutrophils % (Manual) Band Neutrophils % Lymphocytes % (Manual) Prolymphocyte % Reactive Lymphs % (Man) Monocytes % (Manual) Eosinophils % (Manual) Basophils % (Manual) Metamyelocytes % (Man) Myelocytes % (Man) Promyelocytes % (Man) Blast Cells % (Manual) Plasma Cell % (Manual) Other Cells % Nucleated RBC % Neutrophils # (Manual) Band Neutrophils # Total Absolute Neuts Lymphocytes # (Manual) Prolymphocyte # Reactive Lymphs # Total Abs Lymphocytes Monocytes # (Manual) Eosinophils # (Manual) Basophils # (Manual) Metamyelocytes # (Man) Myelocytes # (Manual) Promyelocytes # (Man) Blast Cells # (Man) Plasma Cell # (Manual) Other Cells # Nucleated RBCs # (Man) Hypersegmented Neuts Hyposegmented Neuts Hypogranular Neuts Large Granular Lymphs # Lrg Granular Lymphs Hairy Cells Smudge Cells Toxic Granulation Toxic Vacuolation Dohle Bodies Clarissa Rods Platelet Estimate Hypogranular Platelets Giant Platelets Platelet Satelliting RBC Morphology Polychromasia Hypochromasia Poikilocytosis Basophilic Stippling Anisocytosis Microcytosis Macrocytosis Spherocytes Pappenheimer Bodies Sickle Cells Target Cells Tear Drop Cells Ovalocytes Stomatocytes [place] Bodies Echinocytes Acanthocytes (Spur) Rouleaux RBC Agglutinates Schistocytes Sezary Cell PT (9.0-12.0) Seconds INR (0.9-1.1) APTT (21.0-31.0) Seconds PTT Ratio Activ Coag Time Kaolin 293 H 185 H (94-140) SECONDS Sodium (136-145) mmol/L Potassium (3.5-5.1) mmol/L Chloride (98-107) mmol/L Carbon Dioxide (21-32) mmol/L Anion Gap (3-11) BUN (6-23) mg/dl Creatinine (0.6-1.2) mg/dl Est Cr Clr Drug Dosing ml/min Est GFR ( Amer) ml/min Est GFR (Non-Af Amer) ml/min BUN/Creatinine Ratio (10-20) Glucose (70-99(Fasting)) mg/dl POC Glucose (70-99) mg/dl Calcium (8.6-10.3) mg/dl Magnesium (1.7-2.4) mg/dl Total Bilirubin (0.2-1.0) mg/dl AST (13-39) U/L ALT (7-52) U/L Alkaline Phosphatase (34-104) U/L Troponin I High Sens (0-14) pg/ml Total Protein (6.0-8.3) gm/dl Albumin (3.4-5.0) gm/dl Globulin (2.5-4.0) gm/dl Albumin/Globulin Ratio (0.9-2) Lipase (11-82) U/L Blood Parasites ID Administered Medications Nitroglycerin/Dextrose (Nitroglycerin/D5w 100 Mcg/Ml) 250 mls @ 3 mls/hr IV .Q24H [facility]; Protocol Stop: 11/05/23 11:59 Last Admin: 10/06/23 14:18 Dose: Not Given Documented By: ANUPAM Discontinued Medications Clopidogrel Bisulfate (Clopidogrel Bisulfate 300 Mg Tab) Confirm Administered Dose 300 mg .ROUTE .STK-MED ONE Stop: 10/06/23 14:25 Last Admin: 10/06/23 15:30 Dose: 600 mg Documented By: FERNANDA Fentanyl Citrate (Fentanyl Citrate Pf 100 Mcg/2 Ml Vial) Confirm Administered Dose 100 mcg .ROUTE .STK-MED ONE Stop: 10/06/23 12:21 Last Admin: 10/06/23 14:20 Dose: 100 mcg Documented By: ANUPAM Fentanyl Citrate (Fentanyl Citrate Pf 100 Mcg/2 Ml Vial) Confirm Administered Dose 100 mcg .ROUTE .STK-MED ONE Stop: 10/06/23 14:59 Last Admin: 10/06/23 15:37 Dose: 100 mcg Documented By: FERNANDA Heparin Sodium (Porcine) (Heparin (Porcine) 1000 Unit/Ml 10 Ml (Mailroom Clerk Use Only)) Confirm Administered Dose 10,000 units .ROUTE .STK-MED ONE Stop: 10/06/23 12:21 Last Admin: 10/06/23 14:20 Dose: 8,000 units Documented By: ANUPAM Heparin Sodium/Sodium Chloride (Heparin In Nss Infusion 1000 Unit/500 Ml (2 U/Ml) Bag) Confirm Administered Dose 3,000 units IV .STK-MED ONE Stop: 10/06/23 12:21 Last Admin: 10/06/23 14:21 Dose: 3,000 units Documented By: ANUPAM Sodium Chloride (Nss) 500 mls @ 999 mls/hr IV .Q31M ONE Stop: 10/06/23 11:20 Last Admin: 10/06/23 11:07 Dose: 999 mls/hr Documented By: MICKY Sodium Chloride (Nss) 1,000 mls @ 999 mls/hr IV .Q1H1M ONE Stop: 10/06/23 12:31 Last Admin: 10/06/23 12:21 Dose: 999 mls/hr Documented By: KIMBERLY Insulin Human Regular (Novolin-R Insulin Per Unit Charge) 6 units IV NOW STA Stop: 10/06/23 11:32 Last Admin: 10/06/23 11:46 Dose: 6 units Documented By: MICKY Co-signed By: KIMBERLY Metoclopramide HCl (Metoclopramide Hcl Inj 5 Mg/Ml 2 Ml Vial) Confirm Administered Dose 10 mg .ROUTE .STK-MED ONE Stop: 10/06/23 15:09 Last Admin: 10/06/23 15:30 Dose: 10 mg Documented By: FERNANDA Midazolam HCl (Midazolam Hcl 1 Mg/Ml 2ml Vial) Confirm Administered Dose 2 mg .ROUTE .STK-MED ONE Stop: 10/06/23 12:21 Last Admin: 10/06/23 14:21 Dose: 3 mg Documented By: ANUPAM Midazolam HCl (Midazolam Hcl 1 Mg/Ml 2ml Vial) Confirm Administered Dose 2 mg .ROUTE .STK-MED ONE Stop: 10/06/23 13:48 Last Admin: 10/06/23 14:23 Dose: Not Given Documented By: ANUPAM Midazolam HCl (Midazolam Hcl 1 Mg/Ml 2ml Vial) Confirm Administered Dose 2 mg .ROUTE .STK-MED ONE Stop: 10/06/23 14:21 Last Admin: 10/06/23 14:25 Dose: Not Given Documented By: ANUPAM Morphine Sulfate (Morphine Sulfate 4 Mg/Ml 1 Ml Carp\\Vial) 4 mg IV NOW STA Stop: 10/06/23 10:51 Last Admin: 10/06/23 10:57 Dose: 4 mg Documented By: MICKY Nicardipine HCl (Nicardipine Hcl Inj 2.5 Mg/Ml 10 Ml Amp) Confirm Administered Dose 25 mg .ROUTE .STK-MED ONE Stop: 10/06/23 12:21 Last Admin: 10/06/23 14:21 Dose: 25 mg Documented By: ANUPAM Nitroglycerin (Nitroglycerin Sl 0.4 Mg/Tab Tab) 0.4 mg SL NOW STA Stop: 10/06/23 12:00 Last Admin: 10/06/23 12:29 Dose: 0.4 mg Documented By: KIMBERLY Nitroglycerin (Nitroglycerin Sl 0.4 Mg/Tab Tab) Confirm Administered Dose 0.4 mg .ROUTE .STK-MED ONE Stop: 10/06/23 15:36 Last Admin: 10/06/23 15:38 Dose: 0.4 mg Documented By: FERNANDA Nitroglycerin/Dextrose (Nitroglycerin/D5w 100mcg/Ml 20ml Syr) Confirm Administered Dose 2,000 mcg .ROUTE .STK-MED ONE Stop: 10/06/23 12:30 Last Admin: 10/06/23 14:22 Dose: 2,000 mcg Documented By: ANUPAM Norepinephrine Bitartrate (Norepinephrine Bitartrate 1 Mg/Ml 4 Ml Vial) Confirm Administered Dose 8 mg IV .STK-MED ONE Stop: 10/06/23 13:11 Last Admin: 10/06/23 14:22 Dose: 0.5 mg.per.kg Documented By: ANUPAM Ondansetron HCl (Ondansetron Inj 2 Mg/Ml 2 Ml Vial) 4 mg IV NOW STA Stop: 10/06/23 10:51 Last Admin: 10/06/23 10:57 Dose: 4 mg Documented By: MICKY Ondansetron HCl (Ondansetron Inj 2 Mg/Ml 2 Ml Vial) Confirm Administered Dose 4 mg .ROUTE .STGetNinjas-MED ONE Stop: 10/06/23 14:20 Last Admin: 10/06/23 14:25 Dose: 4 mg Documented By: ANUPAM Ondansetron HCl (Ondansetron Inj 2 Mg/Ml 2 Ml Vial) Confirm Administered Dose 4 mg .ROUTE .STGetNinjas-Puzl ONE Stop: 10/06/23 14:33 Last Admin: 10/06/23 14:46 Dose: 4 mg Documented By: FERNANDA Prochlorperazine (Prochlorperazine 5 Mg/Ml 2 Ml Vial) Confirm Administered Dose 10 mg .ROUTE .[employer]-Puzl ONE Stop: 10/06/23 15:09 Last Admin: 10/06/23 15:38 Dose: Not Given Documented By: FERNANDA Imaging Data Attestation: I personally reviewed and interpreted this imaging study as follows: My Impression: 1 view chest x-ray was obtained in the emergency department. My interpretation is no free air or definite infiltrate, final report below. Radiologist's Impression: Chest X-Ray 10/06/23 10:16 XR chest 1V portable HISTORY: Chest pain, nonspecific COMPARISON: Chest 08/26/2022. FINDINGS: No pneumothorax. No pleural effusions. The lungs are clear. The heart is normal in size. There is left-sided dual-chamber pacemaker. Cervical spinal fusion hardware again noted. There are degenerative changes within the shoulders. Prior vertebroplasty within the mid thoracic spine. Mild eventration right hemidiaphragm persists. IMPRESSION: No significant change compared to the prior study. No acute process. ACT 112: Negative or not required by law. Electronically signed by: Cornell Fisher M.D. 10/06/2023 11:08 AM Discharge Plan Visit Data Chief Complaint: Chest Pain Stated Complaint: CHEST PAIN ED Provider: Zia Childs Discharge Problem: Acute non-ST elevation myocardial infarction (NSTEMI), Abnormal EKG, Elevated troponin I level, Acute hyperglycemia Patient Disposition: Being Evaluated by Surgeon Discharge Instructions Interventions: ED Discharge Assessment Last Done: 10/06/23 12:29
[2023-10-06] MEDS ORDERED: Heparin IV Adult Wt-Based Standard *NO* Bolus Protocol IV STA (11:21)
[2023-10-06 11:22] LABS: Albumin Globulin Ratio 1.4 (0.9-2); BUN Creatinine Ratio 21.1 (10-20); Creatinine Clr Calc Pharmacy 62.3 ml/min; Est GFR (African American) 87.1 ml/min; Est GFR (Non-African American) 75.1 ml/min; Globulin 3.1 gm/dl (2.5-4.0); Total Protein 7.5 gm/dl (6.0-8.3); Troponin I High Sensitivity 273.6 pg/ml (0-14)
[2023-10-06 11:23] LABS: INR 0.9 (0.9-1.1); Partial Thromboplastin Ratio 0.7; Partial Thromboplastin Time 20.5 Seconds (21.0-31.0); Prothrombin Time 10.3 Seconds (9.0-12.0)
[2023-10-06] MEDS ORDERED: SODIUM CHLORIDE 0.9% 1,000 ML IV ONE (11:31)
[2023-10-06] MEDS ORDERED: NovoLIN-R INSULIN PER UNIT CHARGE IV STA (11:31)
[2023-10-06] MEDS ORDERED: HEPARIN SODIUM/DEXTROSE 25,000 UNITS/500 ML BAG IV SCH ×2 (11:45→12:30)
--- NOTE | 2023-10-06 11:53 | History & Physical Report ---
Date of Service October 06, 2023 Assessment & Plan (1) NSTEMI (non-ST elevated myocardial infarction): Plan: ASA 324mg PO given by EMS. Nitroglycerin 0.4mg SL spray without much effect given by EMS Did not take her metoprolol this morning therefore suspect she is tachycardic for this reason. Once out of cardiac cath will consider restarting her usual metoprolol IV heparin low dose with bolus and IV nitroglycerin ordered Mg level added to labs, CBC not yet available but repeat bottle taken and sent to lab Discussed with Dr Javier and patient will be taken emergently to the cardiac chemical lab supervisor - will defer her usual cardiac medications until after cardiac cath TTE - currently being performed Serial troponins (2) Diabetic ketoacidosis: Plan: HbA1C 11.0 on 10/01, no need to repeat Hold metformin Home regimen of U-500 60 units BID Normal saline 1.5L bolus given in ER - will defer further IV fluids given NSTEMI Consult pharmacy for glycemic control Once out of chemical lab supervisor suggest insulin IV drip - will defer treatment to the ICU (3) Depression with anxiety: Plan: Continue duloxetine Hold doxepin - increased risk of arrythmias (4) Gastroesophageal reflux disease: Plan: Switch dexlansoprazole for pantoprazole per hospital formulary (5) Intrinsic asthma: Plan: No current exacerbation suspected based on exam Continue her routine inhalers, did not yet take this morning. Plan VTE Prophylaxis - IV heparin Diet - NPO pending cardiac cath Disposition - deferred pending cardiac cath Admission and Anticipated Discharge Date Admission Date: October 06, 2023 History of Present Illness Chief Complaint: Chest pain Primary Care Provider: Millie Edwards MD Dinorah Robledo (Penny) is a 78 year old female who presents to the ER with chest pain. History was taken in an emergent manor given concern for need for urgent cardiac catheterization, echo currently being performed when seen and med rec not performed. Initial pain started on Friday while she was just sitting, under left breast and lasted for 2 hours. Pain occurring intermittently since then. Unsure if exertional as she doesn't really exert herself. Not positional. Last night associated with diaphoresis. Today her pain started at 6:30am and has been constant even after aspirin and nitroglycerin given by EMS. Severity 8/10 - constant. No prior known cardiac disease but she has had prior history of strokes. She took all her morning medications except her inhalers and metoprolol. Allergies Allergy/AdvReac Type Severity Reaction Status Date / Time buspirone Allergy Intermediate itchy all Verified 10/01/23 10:52 over and heart palpitaitons with tachycardia levofloxacin Allergy Unknown ITCHY HIVES Verified 10/01/23 10:52 ofloxacin Allergy Unknown RASH Verified 10/01/23 10:52 pioglitazone Allergy Unknown ITCHING Verified 10/01/23 10:52 Sulfa (Sulfonamide Allergy Unknown itchy Verified 10/01/23 10:52 Antibiotics) KNEE GEL SHOT Allergy Unknown SWELLING Uncoded 10/01/23 10:52 AND BRUISING Home Medications Medication Instructions Recorded Confirmed Type cyanocobalamin (vitamin B-12) 1,000 mcg PO QAM 05/13/19 10/06/23 History 1,000 mcg tablet multivitamin (Multiple Vitamins 1 tab PO QAM 07/01/19 10/01/23 History tablet) levalbuterol HCl 0.63 mg/3 mL 0.63 mg (3 mL) inhalation TID PRN 12/23/19 10/01/23 Rx solution for nebulization shortness of breath or wheezing #360 mL polyethylene glycol 3350 17 17 g PO QAM 05/19/20 10/06/23 History gram/dose oral powder (Miralax) tiotropium bromide 2.5 2 puffs inhalation QAM 07/28/20 10/06/23 History mcg/actuation mist for inhalation (Spiriva Respimat) metoprolol succinate 200 mg 200 mg PO QAM #90 tabs 11/07/21 10/06/23 Rx tablet,extended release 24 hr blood sugar diagnostic (OneTouch 11/20/21 10/01/23 History Ultra Test strips) metformin 500 mg tablet,extended 500 mg PO BID #180 tabs 11/26/21 10/06/23 Rx release 24 hr cholecalciferol (vitamin D3) 25 2,000 unit PO QAM 12/12/21 10/06/23 History mcg (1,000 unit) tablet inhaler,assist devices,access #1 ea 12/19/21 10/01/23 Rx OneTouch Ultra Control (blood #1 ea 01/16/22 10/01/23 Rx glucose control, normal) fluticasone propionate 230 2 inh inhalation BID 90 days #3 01/21/22 10/06/23 Rx mcg-salmeterol 21 mcg/actuation Inhalers HFA inhaler (Advair HFA) chlorpheniramine maleate 4 mg 4 mg PO UD PRN cough 02/19/22 10/01/23 History tablet mometasone 50 mcg/actuation nasal 2 spray intranasal UD PRN Nasal 04/15/22 10/01/23 History spray Congestion albuterol sulfate 90 mcg/actuation See Rx Instructions .Route 07/08/22 10/06/23 Rx aerosol inhaler (Ventolin HFA) .COMPLEX #54 grams ayorxtmdma-hqfleju-xjdgyjtd 50 1 cap PO Q4H PRN pain #1 cap 07/30/22 10/06/23 Rx mg-325 mg-40 mg capsule FreeStyle Radha 2 Sensor (flash #6 ea 09/06/22 10/01/23 Rx glucose sensor) lancets 33 gauge (OneTouch Delica #100 ea 09/06/22 10/01/23 History Lancets) amoxicillin 500 mg capsule 2,000 mg PO UD PRN 1 hr prior to 09/23/22 10/06/23 History dental appt ondansetron 4 mg disintegrating 4 mg PO Q8H PRN Nausea And 10/22/22 10/06/23 Rx tablet Vomiting #120 tabs pen needle, diabetic 31 gauge x #300 ea 01/20/23 10/01/23 Rx 3/16" (BD Ultra-Fine Mini Pen Needle) olmesartan 5 mg tablet 5 mg PO DAILY #90 tabs 02/25/23 10/06/23 Rx ipratropium bromide 21 mcg (0.03 2 spray intranasal BID PRN 03/03/23 10/01/23 History %) nasal spray Congestion chlorpheniramine maleate 4 mg 4 mg PO Q12H PRN cough #60 tabs 04/21/23 10/01/23 Rx tablet blood-glucose meter #1 ea 05/26/23 10/01/23 Rx diltiazem HCl 420 mg capsule,24 420 mg PO QAM #180 caps 06/26/23 10/06/23 Rx hr,extended release duloxetine 30 mg capsule,delayed 30 mg PO QAM #90 caps 06/26/23 10/06/23 Rx release valacyclovir 500 mg tablet 500 mg PO UD PRN genital herpes 06/26/23 10/06/23 Rx #10 tabs FreeStyle Radha 2 Leopold (flash #1 ea 07/11/23 10/01/23 Rx glucose scanning reader) alprazolam 0.25 mg tablet 0.25 mg PO BID PRN anxiety #60 tabs 07/21/23 10/06/23 Rx clopidogrel 75 mg tablet 75 mg PO DAILY #90 tabs 07/31/23 10/06/23 Rx dexlansoprazole 60 mg 60 mg PO QAM #90 caps 09/05/23 10/06/23 Rx capsule,biphase delayed release (Dexilant) spironolactone 50 mg tablet 50 mg PO QAM #90 tabs 09/17/23 10/06/23 Rx atorvastatin 80 mg tablet 80 mg PO QPM #90 tabs 09/24/23 10/06/23 Rx doxepin 25 mg capsule 25 mg PO HS 10/06/23 10/06/23 History ezetimibe 10 mg tablet (Zetia) 10 mg PO HS 10/06/23 10/06/23 History insulin regular hum U-500 conc 500 60 unit subcut BID 10/06/23 10/06/23 History unit/mL(3 mL) subcut pen (Humulin R U-500 (Conc) Insulin Kwikpen) prucalopride 2 mg tablet See Rx Instructions .Route 10/06/23 10/06/23 Rx (Motegrity) .COMPLEX #90 tabs Past Med/Surg History Medical History (Updated 10/06/23 @ 16:10 by Brian García MD) Diabetic ketoacidosis Cardiogenic shock Migraines Mixed conductive and sensorineural hearing loss of right ear with restricted hearing of left ear Eustachian tube dysfunction Diabetic peripheral neuropathy associated with type 2 diabetes mellitus Poorly controlled type 2 diabetes mellitus Hypomagnesemia Knee problem LEFT KNEE GEL SHOT INJECTION 5 WEEKS AGO, HAD SWELLING AND BRUISING AFTER - PT DISCUSSED WITH DR GREENWOOD AND WAS TOLD SHE WAS ALLERGIC TO IT AND NOT TO RECEIVE IN THE FUTURE - MILD BRUISING REMAINS Difficult intravenous access Pacemaker Ирина 2nd Degree AV Block with 2:1 Conduction s/p Medtronic [place] XT DR KELLY Dual Chamber Pacemaker 04/12/21 LAST PACEMAKER CHECK 12/2021 Cancer HX BREAST 7 YR AGO, R mastectomy and lymph node excision, No chemo or XRT RUE limb restriction Chronic obstructive pulmonary disease Stable per pt Gastroparesis Primary hypertension controlled per pt Frequent falls D/t issues with back currently per pt, MOST RECENT FALL 7 WEEKS AGO - LEFT LEG BURSA SAC RUPTURE AND HURT RIGHT SHOULDER PER PT Chronic cough Nonproductive, ongoing evaluation/management. 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 Webber Abnormal CT scan of head Age-indeterminate subcentimeter lacunar infarct of the right frontal lobe santillan radiata extending into the anterior limb of the right internal capsule -- new from 04/13/2019. Chronic lumbar pain Chronic constipation Duodenal hemorrhage HX GI BLEED No recent issues Complex regional pain syndrome type 1 affecting left shoulder Horners syndrome DROOPY EYES, BOTH - RIGHT IS WORSE AND GETS WORSE WITH FATIGUE TIA (transient ischemic attack) 01/2018--reason for plavix, no deficits Post-traumatic stress disorder Osteopenia Fatty liver Lumbar stenosis with neurogenic claudication Carotid stenosis, asymptomatic S/p right CEA (2013) - follows with Dr. Kohli Surgical History Pacemaker Medtronic, placed 03/2021, follows with [place] [facility]ology History of carotid endarterectomy right, 2013 History of breast reconstruction Bilateral, Dr. Barr, Allergsaul Style 410 implant, size unknown History of colonoscopy with polypectomy History of anesthesia reaction difficulty waking with 1st back surgery @ [facility] [place]--no issues since History of total hysterectomy with bilateral salpingo-oophorectomy (BSO) History of bilateral tubal ligation History of trigger finger x4--bilt hands History of surgery on left wrist plate in place History of carpal tunnel release of both wrists History of fusion of lumbar spine x4 History of fusion of cervical spine x3--"cant turn to the right" History of total right knee replacement (TKR) History of bladder suspension procedure History of esophagogastroduodenoscopy (EGD) History of cholecystectomy History of right breast biopsy malignant History of bilateral mastectomy h/o R breast CA-lymph node removal R side History of oral surgery gum sx History of bilateral cataract extraction Abdominoplasty (05/12/13) Family History Son Crohn's disease Sister Ulcerative colitis Family history of diabetes mellitus Mother Family history of diabetes mellitus Brother Family history of diabetes mellitus Other No family history of adverse response to anesthesia No family history of bleeding disorder Social History Smoking Status: Never smoker Second Hand Exposure: No; Do You Dip or Chew Tobacco: No; Hx Alcohol Use: No Hx Substance Use: No Preferred Language: Jordanian Communication Ability: Effective Web Merchandiser Required: No Beliefs That Will Affect Care: None marital status: Current Living Situation: Alone Current Living Situation Comment: LIVES WITH SPOUSE current occupational status: retired Feels Safe at Home: Yes Diet: diabetic during the past year weight has: decreased > 10 lbs Dental Care, Regularly: Yes Physical Activity Frequency: Daily Seatbelt Use: always Sunscreen Use: Yes Assistive Devices: Glasses and Walker Review of Systems Review of Systems: All systems reviewed & are unremarkable except as noted in HPI & below Physical Exam Constitutional: WD/WN, vitals as above Eyes: PERRL, conjunctivae normal, anicteric sclerae ENMT: external ear and nose normal, oropharynx normal Respiratory: normal respiratory effort, lungs clear to auscultation Cardiovascular: RRR, no murmur, no edema Gastrointestinal (Abdomen): normal bowel sounds, soft, nontender, no hepatosplenomegaly Musculoskeletal: no cyanosis or clubbing, extremities motor strength 5/5 Skin: no rashes, warm and dry Neurologic: moves all extremities and awake; not confused Psychiatric: Orientation: alert and oriented x 3 Affect: + anxious affect Genitourinary: no CVA tenderness Results & Data Results & Data Vital Signs (Past 12 Hours) Vital Signs Temp Pulse Pulse Resp BP BP Pulse Ox 10/06/23 10:51 99 10/06/23 10:45 116 H 21 129/91 98 10/06/23 10:33 36.6 C 117 H 17 129/91 98 10/06/23 10:19 99 O2 Del Method O2 Flow Rate 10/06/23 10:51 Room Air 0 10/06/23 10:45 Room Air 10/06/23 10:33 Room Air 10/06/23 10:19 Room Air Diagnostic Findings XR chest 1V portable HISTORY: Chest pain, nonspecific COMPARISON: Chest 08/26/2022. FINDINGS: No pneumothorax. No pleural effusions. The lungs are clear. The heart is normal in size. There is left-sided dual-chamber pacemaker. Cervical spinal fusion hardware again noted. There are degenerative changes within the shoulders. Prior vertebroplasty within the mid thoracic spine. Mild eventration right hemidiaphragm persists. IMPRESSION: No significant change compared to the prior study. No acute process. Medications Administered ER Medications Given: Normal saline 500ml bolus Morphine 4mg IV Ondansetron 4mg IV Heparin - ordered as standard without bolus (reordered as low dose with bolus by myself) Normal saline 1L bolus Insulin 6 units IV ECG Rate (beats per minute): 122 Rhythm: sinus tachycardia Findings: + other (q waves inferiorly, nonspecific T wave changes anteriorly) Comparison ECG Date: from (Sep 23, 2022) Change: the following changes noted (significant ischemic changes have occurred) Code Status & VTE Plan Code Status Full VTE Prophylaxis Plan VTE Prophylaxis will be ordered: Yes Critical Care Time Critical Care Time: Yes Total Critical Care Time: 35 PG Care Time/CCT Total # of Minutes Spent Total Time Spent with Patient: Total time spent is greater than 50% in coordination of care (as documented) at patient's floor/unit and/or counseling patient: Critical Care Time: Yes Total Critical Care Time: 35 Coding Level of Care Code 02401 INT INP/OBS CARE 3/75MIN Diagnoses NSTEMI (non-ST elevated myocardial infarction) I21.4 Diabetic ketoacidosis E11.10 Depression with anxiety F41.8 Gastroesophageal reflux disease without esophagitis K21.9 Esophagitis presence: without esophagitis Intrinsic asthma J45.909 Additional Codes Critical Care Time - Critical Care Time: Yes ([id number]) (4) Gastroesophageal reflux disease Esophagitis presence: without esophagitis Qualified Code(s): K21.9 - Gastro- esophageal reflux disease without esophagitis
[2023-10-06] MEDS ORDERED: STAT IV Infusion **Titration per Protocol STA ×3 (11:55→20:20)
[2023-10-06] MEDS ORDERED: NITROGLYCERIN SL 0.4 MG/TAB TAB SL STA (11:59)
[2023-10-06] MEDS ORDERED: NITROGLYCERIN/D5W 100MCG/ML 250 ML IV SCH (12:00)
[2023-10-06] MEDS ORDERED: fentaNYL citrate PF 100 MCG/2 ML VIAL ONE ×2 (12:20→14:58)
[2023-10-06] MEDS ORDERED: HEPARIN (PORCINE) 1000 UNIT/ML 10 ML (CATH LAB USE ONLY) ONE ×2 (12:20→14:24)
[2023-10-06] MEDS ORDERED: MIDAZOLAM HCL 1 MG/ML 2ML VIAL ONE ×3 (12:20→14:20)
[2023-10-06] MEDS ORDERED: niCARdipine HCL INJ 2.5 MG/ML 10 ML AMP ONE (12:20)
[2023-10-06] MEDS ORDERED: NITROGLYCERIN/D5W 100MCG/ML 20ML SYR ONE (12:29)
[2023-10-06] MEDS ORDERED: Heparin IV Adult Wt-Based Low-Dose WITH Bolus Protocol IV SCH (12:30)
[2023-10-06] MEDS ORDERED: HEPARIN SOD (PORCINE) 1000 UNIT/ML IV ONE (12:45)
[2023-10-06 12:46] LABS: Basophils # (auto) 0.03 K/uL (0.00-0.20); Basophils % (auto) 0.4 %; Eosinophils # (auto) 0.05 K/uL (0.00-0.50); Eosinophils % (auto) 0.7 %; Hematocrit (blood only) 37.1 % (37.0-47.0); Hemoglobin 12.5 g/dl (12.0-16.0); Immature Granulocytes # (auto) 0.06 K/uL (0.01-0.20); Immature Granulocytes % (auto) 0.8 %; Lymphocytes # (auto) 1.78 K/uL (1.20-3.40); Lymphocytes % (auto) 23.2 %; Mean Corpuscular Hemoglobin 29.8 pg (25.0-34.0); Mean Corpuscular Hgb Conc 33.7 g/dL (32.0-36.0); Mean Corpuscular Volume 88.3 fL (80.0-100.0); Monocytes # (auto) 0.17 K/uL (0.11-0.59); Monocytes % (auto) 2.2 %; Neutrophils # (auto) 5.59 K/uL (1.40-6.50); Neutrophils % (auto) 72.7 %; Platelet Count 310 K/uL (130-400); RDW Coefficient of Variation 13.9 % (11.5-14.5); White Blood Count 7.68 K/ul (4.8-10.8)
--- NOTE | 2023-10-06 12:51 | XCELERA ---
[id number] \\[email or web address]\[id number]
[2023-10-06 13:00] LABS: Magnesium 1.3 mg/dl (1.7-2.4)
--- NOTE | 2023-10-06 13:02 | Pre Anesthesia Assessment ---
Date of Service October 06, 2023 Pre Sedation Assessment Vital Signs Temp Pulse Pulse Resp BP BP Pulse Ox 10/06/23 12:34 116 H 16 118/75 96 10/06/23 12:18 107 H 23 98 10/06/23 12:18 143/91 H 10/06/23 12:10 102 H 25 H 97 10/06/23 12:00 110 H 22 99 10/06/23 11:50 109 H 18 100 10/06/23 11:40 110 H 16 97 10/06/23 11:30 128 H 19 99 10/06/23 11:20 111 H 16 97 10/06/23 11:10 116 H 26 H 100 10/06/23 11:00 117 H 23 99 10/06/23 10:51 99 10/06/23 10:50 22 100 10/06/23 10:45 116 H 21 129/91 98 10/06/23 10:40 20 98 10/06/23 10:33 97.9 F 117 H 17 129/91 98 10/06/23 10:30 23 10/06/23 10:20 122 H 18 98 10/06/23 10:19 99 10/06/23 10:15 121 H 21 99 O2 Del Method O2 Flow Rate 10/06/23 12:34 Room Air 10/06/23 12:18 10/06/23 12:18 10/06/23 12:10 10/06/23 12:00 10/06/23 11:50 10/06/23 11:40 10/06/23 11:30 10/06/23 11:20 10/06/23 11:10 10/06/23 11:00 10/06/23 10:51 Room Air 0 10/06/23 10:50 10/06/23 10:45 Room Air 10/06/23 10:40 10/06/23 10:33 Room Air 10/06/23 10:30 10/06/23 10:20 10/06/23 10:19 Room Air 10/06/23 10:15 Cardiovascular RRR, no murmur, no edema Respiratory + respiratory effort normal Pre-Sedation Airway Assessment Smoking Status: Never smoker Hx Sleep Apnea: No Hx Difficult Intubation: No Thyromental Distance: < 3.5 Finger Breadths Oral Cavity: + Dental Abnormalities Mallampati Class: III ASA: ASA3 Procedure Planning Contraindications for Sedation: none Current Medications Reviewed: Yes Notes The planned sedation has been discussed with the patient. Informed Consent was obtained. I have identified the patient, determined the appropriateness of sedation and have assessed the patient immediately prior to the procedure. All medicine(s) and interventions are by my order.
--- NOTE | 2023-10-06 13:06 | Electrocardiogram Report ---
Test Reason : Blood Pressure : / mmHG Vent. Rate : 122 BPM Atrial Rate : 122 BPM P-R Int : 190 ms QRS Dur : 088 ms QT Int : 362 ms P-R-T Axes : 078 -26 077 degrees QTc Int : 515 ms Sinus tachycardia Low voltage QRS Inferior infarct , age undetermined Anterior injury pattern Cannot rule out Anterior infarct , age undetermined Abnormal ECG When compared with ECG of 23-SEP-2022 14:55, Significant changes have occurred Confirmed by Zia Hinds ([id number]) on 10/06/2023 1:06:33 PM Referred By: Confirmed By:Zia Hinds
[2023-10-06 13:09] LABS: Troponin I High Sensitivity 248.1 pg/ml (0-14)
[2023-10-06] MEDS ORDERED: NOREPINEPHRINE BITARTRATE 1 MG/ML 4 ML VIAL IV ONE (13:10)
[2023-10-06] MEDS ORDERED: ONDANSETRON INJ 2 MG/ML 2 ML VIAL ONE ×2 (14:19→14:32)
[2023-10-06] MEDS ORDERED: CLOPIDOGREL BISULFATE 300 MG TAB ONE (14:24)
[2023-10-06] MEDS ORDERED: diphenhydrAMINE 50 MG/ML VIAL ONE (14:33)
[2023-10-06] MEDS ORDERED: METOCLOPRAMIDE HCL INJ 5 MG/ML 2 ML VIAL ONE (15:08)
[2023-10-06] MEDS ORDERED: PROCHLORPERAZINE 5 MG/ML 2 ML VIAL ONE (15:08)
--- NOTE | 2023-10-06 15:19 | Electrocardiogram Report ---
Test Reason : Blood Pressure : / mmHG Vent. Rate : 109 BPM Atrial Rate : 109 BPM P-R Int : 190 ms QRS Dur : 080 ms QT Int : 334 ms P-R-T Axes : 085 -24 103 degrees QTc Int : 449 ms Sinus tachycardia Low voltage QRS Inferior infarct (cited on or before 06-OCT-2023) Anterior infarct , age undetermined (cited on or before 06-OCT-2023) Anterior injury pattern T wave abnormality, consider anterior ischemia Abnormal ECG When compared with ECG of 06-OCT-2023 10:11, No significant change was found Confirmed by Zia Hinds ([id number]) on 10/06/2023 3:19:11 PM Referred By: REFERRED SELF Confirmed By:Zia Hinds
--- NOTE | 2023-10-06 15:32 | Electrocardiogram Report ---
Test Reason : Blood Pressure : / mmHG Vent. Rate : 067 BPM Atrial Rate : 067 BPM P-R Int : 188 ms QRS Dur : 090 ms QT Int : 476 ms P-R-T Axes : 051 042 063 degrees QTc Int : 502 ms AV dual-paced rhythm with frequent ventricular-paced complexes T wave abnormality, consider anterolateral ischemia Abnormal ECG When compared with ECG of 06-OCT-2023 11:39, Electronic ventricular pacemaker has replaced Sinus rhythm Vent. rate has decreased BY 42 BPM Confirmed by Zia Hinds ([id number]) on 10/06/2023 3:32:15 PM Referred By: REFERRED SELF Confirmed By:Zia Hinds
[2023-10-06] MEDS ORDERED: NITROGLYCERIN SL 0.4 MG/TAB TAB ONE (15:35)
--- NOTE | 2023-10-06 16:00 | Post Anesthesia Assessment ---
Date of Service October 06, 2023 Post Sedation Assessment Vital Signs Temp Pulse Pulse Resp BP BP Pulse Ox 10/06/23 15:31 81 16 106/61 96 10/06/23 15:15 81 16 108/74 96 10/06/23 15:00 75 16 89/63 L 96 10/06/23 14:45 53 L 16 106/65 96 10/06/23 12:34 116 H 16 118/75 96 10/06/23 12:18 107 H 23 98 10/06/23 12:18 143/91 H 10/06/23 12:10 102 H 25 H 97 10/06/23 12:00 110 H 22 99 10/06/23 11:50 109 H 18 100 10/06/23 11:40 110 H 16 97 10/06/23 11:30 128 H 19 99 10/06/23 11:20 111 H 16 97 10/06/23 11:10 116 H 26 H 100 10/06/23 11:00 117 H 23 99 10/06/23 10:51 99 10/06/23 10:50 22 100 10/06/23 10:45 116 H 21 129/91 98 10/06/23 10:40 20 98 10/06/23 10:33 97.9 F 117 H 17 129/91 98 10/06/23 10:30 23 10/06/23 10:20 122 H 18 98 10/06/23 10:19 99 10/06/23 10:15 121 H 21 99 O2 Del Method O2 Flow Rate 10/06/23 15:31 Room Air 10/06/23 15:15 Room Air 10/06/23 15:00 Room Air 10/06/23 14:45 Room Air 10/06/23 12:34 Room Air 10/06/23 12:18 10/06/23 12:18 10/06/23 12:10 10/06/23 12:00 10/06/23 11:50 10/06/23 11:40 10/06/23 11:30 10/06/23 11:20 10/06/23 11:10 10/06/23 11:00 10/06/23 10:51 Room Air 0 10/06/23 10:50 10/06/23 10:45 Room Air 10/06/23 10:40 10/06/23 10:33 Room Air 10/06/23 10:30 10/06/23 10:20 10/06/23 10:19 Room Air 10/06/23 10:15 Recovery Score Activity: Moves 4 extremities Respiration: Deep Breath/Cough Circulation: +/-20% PreAnes Value Consciousness: Fully Awake Oxygen Saturation: > 92% On Room Air Post Anesthesia Score: 10 Discharge Sedation Level of Care: Fast Track Phase II Post Sedation Plan On clinical assessment, the patient appears to have tolerated the sedation without complications. Patient is recovering as anticipated. Patient will continue to be monitored by nursing and may be discharged when sedation discharge criteria are met per below protocol. Upon Completions of procedure up to 15 minutes continue every 5 minute vital signs and the P.A.R. score; then discharge to a Phase I or Fast Track to Phase II per the following guidelines: * Discharge Patient to appropriate Phase II area if PAR is 8 or greater or return to pre- procedure baseline. The post - procedure orders will be as directed. * If PAR score is less than 8 or not return to pre-procedure baseline then patient will follow Phase I monitoring till PAR is reached for Phase II. The Phase I may be done in procedure room or may call to secure a Phase I area. * If naloxone or flumazenil are used for reversal, hold in Phase I for continued monitoring from when last reversal dose was given for a minimum of 60 minutes or longer pending the nurse and/or physician discretion of patient condition before discharge to Phase II. Please call the Sedation Physician to re-evaluate and complete post-note for discharge to Phase II area. Do NOT discharge from procedure sedation or Phase 1 until post- sedation evaluation note is complete by procedure /sedation MD Sedation Discharge Instructions to be given to the patient at discharge to home.
[2023-10-06] MEDS ORDERED: NITROGLYCERIN SL 0.4 MG/TAB TAB SL PRN (16:14)
--- NOTE | 2023-10-06 16:15 | Critical Care Consultation ---
Date of Consultation October 06, 2023 Assessment & Plan (1) Acute non-ST elevation myocardial infarction (NSTEMI): (2) Cardiogenic shock: (3) Elevated troponin I level: (4) Diabetic ketoacidosis: Plan 78-year-old female with a history of hypertension, insulin-dependent diabetes mellitus type 2, dual-chamber pacemaker and coronary artery disease presenting with an NSTEMI status post PCI with KRISH to mid LAD. Neurologic: No issues at present. Delirium precautions. Pulmonary: Requiring low-flow oxygen likely secondary to pulmonary edema from cardiogenic shock. Chest x-ray on admission without acute findings. Cardiovascular: Maintain maps above 65. Currently requiring low-dose Levophed. Chest pain likely due to reperfusion. Troponins trending down. Echo noted with an EF of 25%. Cardiology following. Appreciate input. ASCVD guideline based therapy. Gastrointestinal: N.p.o. for today given ongoing nausea. Renal: Appears to have been in DKA on admission. Hemoglobin A1c 11. Repeat BMP and low threshold to initiate insulin infusion. Replace electrolytes per protocol. Obtain lactate. Infectious disease: No signs of obvious infectious etiology. Hematologic: History of breast cancer with no active disease.H&H stable. Endocrine: DKA on admission likely secondary to NSTEMI. Repeat BMP with magnesium. Lines and tubes: Peripheral IVs in place VTE prophylaxis: SCDs CODE STATUS: Full Family at bedside: Not available currently Disposition: ICU I have personally spent 39 minutes of critical care time in the direct management of this patient. This is a life/limb threatening event. This includes time spent evaluating patient, direct bedside care, chart review, placing orders, interpretation of diagnostic studies, discussion with consultants, patient, and family members, as well as other required patient management activities. This time is exclusive of all separately billable procedures, and teaching time and separate from and in addition to any other critical care service time. Thank you for allowing us to participate in the care of this patient. History of Present Illness Reason for Consultation: Hypotension post NSTEMI Attending Physician: Latrell Javier MD History of Present Illness 78-year-old female with a history of dual-chamber pacemaker, hypertension and insulin-dependent diabetes mellitus type 2 presented due to ongoing chest pain since Friday. She reports nausea and vomiting with crushing chest pain this morning which prompted her to call 911. She was evaluated in the ER and ultimately sent to the cardiac Nuclear Medical Technologist. She underwent a single drug-eluting stents to the LAD. She had post procedure chest pain and required fentanyl and multiple doses of Zofran. She received half a liter bolus of crystalloids and is currently on a 0.05 Levophed drip running through a 20-gauge left hand IV. She endorses some mild substernal chest pain and some mild nausea at present. Otherwise, she appears comfortable. Systolic of 90/60 on Levophed. Allergies Allergy/AdvReac Type Severity Reaction Status Date / Time buspirone Allergy Intermediate itchy all Verified 10/01/23 10:52 over and heart palpitaitons with tachycardia levofloxacin Allergy Unknown ITCHY HIVES Verified 10/01/23 10:52 ofloxacin Allergy Unknown RASH Verified 10/01/23 10:52 pioglitazone Allergy Unknown ITCHING Verified 10/01/23 10:52 Sulfa (Sulfonamide Allergy Unknown itchy Verified 10/01/23 10:52 Antibiotics) KNEE GEL SHOT Allergy Unknown SWELLING Uncoded 10/01/23 10:52 AND BRUISING Home Medications Medication Instructions Recorded Confirmed Type cyanocobalamin (vitamin B-12) 1,000 mcg PO QAM 05/13/19 10/06/23 History 1,000 mcg tablet multivitamin (Multiple Vitamins 1 tab PO QAM 07/01/19 10/01/23 History tablet) levalbuterol HCl 0.63 mg/3 mL 0.63 mg (3 mL) inhalation TID PRN 12/23/19 10/01/23 Rx solution for nebulization shortness of breath or wheezing #360 mL polyethylene glycol 3350 17 17 g PO QAM 05/19/20 10/06/23 History gram/dose oral powder (Miralax) tiotropium bromide 2.5 2 puffs inhalation QAM 07/28/20 10/06/23 History mcg/actuation mist for inhalation (Spiriva Respimat) metoprolol succinate 200 mg 200 mg PO QAM #90 tabs 11/07/21 10/06/23 Rx tablet,extended release 24 hr blood sugar diagnostic (OneTouch 11/20/21 10/01/23 History Ultra Test strips) metformin 500 mg tablet,extended 500 mg PO BID #180 tabs 11/26/21 10/06/23 Rx release 24 hr cholecalciferol (vitamin D3) 25 2,000 unit PO QAM 12/12/21 10/06/23 History mcg (1,000 unit) tablet inhaler,assist devices,access #1 ea 12/19/21 10/01/23 Rx OneTouch Ultra Control (blood #1 ea 01/16/22 10/01/23 Rx glucose control, normal) fluticasone propionate 230 2 inh inhalation BID 90 days #3 01/21/22 10/06/23 Rx mcg-salmeterol 21 mcg/actuation Inhalers HFA inhaler (Advair HFA) chlorpheniramine maleate 4 mg 4 mg PO UD PRN cough 02/19/22 10/01/23 History tablet mometasone 50 mcg/actuation nasal 2 spray intranasal UD PRN Nasal 04/15/22 10/01/23 History spray Congestion albuterol sulfate 90 mcg/actuation See Rx Instructions .Route 07/08/22 10/06/23 Rx aerosol inhaler (Ventolin HFA) .COMPLEX #54 grams tbomfcsdsp-yjhyvad-ktchjkiw 50 1 cap PO Q4H PRN pain #1 cap 07/30/22 10/06/23 Rx mg-325 mg-40 mg capsule FreeStyle Radha 2 Sensor (flash #6 ea 09/06/22 10/01/23 Rx glucose sensor) lancets 33 gauge (OneTouch Delica #100 ea 09/06/22 10/01/23 History Lancets) amoxicillin 500 mg capsule 2,000 mg PO UD PRN 1 hr prior to 09/23/22 10/06/23 History dental appt ondansetron 4 mg disintegrating 4 mg PO Q8H PRN Nausea And 10/22/22 10/06/23 Rx tablet Vomiting #120 tabs pen needle, diabetic 31 gauge x #300 ea 01/20/23 10/01/23 Rx 3/16" (BD Ultra-Fine Mini Pen Needle) olmesartan 5 mg tablet 5 mg PO DAILY #90 tabs 02/25/23 10/06/23 Rx ipratropium bromide 21 mcg (0.03 2 spray intranasal BID PRN 03/03/23 10/01/23 History %) nasal spray Congestion chlorpheniramine maleate 4 mg 4 mg PO Q12H PRN cough #60 tabs 04/21/23 10/01/23 Rx tablet blood-glucose meter #1 ea 05/26/23 10/01/23 Rx diltiazem HCl 420 mg capsule,24 420 mg PO QAM #180 caps 06/26/23 10/06/23 Rx hr,extended release duloxetine 30 mg capsule,delayed 30 mg PO QAM #90 caps 06/26/23 10/06/23 Rx release valacyclovir 500 mg tablet 500 mg PO UD PRN genital herpes 06/26/23 10/06/23 Rx #10 tabs FreeStyle Radha 2 [place] (flash #1 ea 07/11/23 10/01/23 Rx glucose scanning reader) alprazolam 0.25 mg tablet 0.25 mg PO BID PRN anxiety #60 tabs 07/21/23 10/06/23 Rx clopidogrel 75 mg tablet 75 mg PO DAILY #90 tabs 07/31/23 10/06/23 Rx dexlansoprazole 60 mg 60 mg PO QAM #90 caps 09/05/23 10/06/23 Rx capsule,biphase delayed release (Dexilant) spironolactone 50 mg tablet 50 mg PO QAM #90 tabs 09/17/23 10/06/23 Rx atorvastatin 80 mg tablet 80 mg PO QPM #90 tabs 09/24/23 10/06/23 Rx doxepin 25 mg capsule 25 mg PO HS 10/06/23 10/06/23 History ezetimibe 10 mg tablet (Zetia) 10 mg PO HS 10/06/23 10/06/23 History insulin regular hum U-500 conc 500 60 unit subcut BID 10/06/23 10/06/23 History unit/mL(3 mL) subcut pen (Humulin R U-500 (Conc) Insulin Kwikpen) prucalopride 2 mg tablet See Rx Instructions .Route 10/06/23 10/06/23 Rx (Motegrity) .COMPLEX #90 tabs Patient History Medical History (Updated 10/06/23 @ 16:10 by Brian García MD) Diabetic ketoacidosis Cardiogenic shock Migraines Mixed conductive and sensorineural hearing loss of right ear with restricted hearing of left ear Eustachian tube dysfunction Diabetic peripheral neuropathy associated with type 2 diabetes mellitus Poorly controlled type 2 diabetes mellitus Hypomagnesemia Knee problem LEFT KNEE GEL SHOT INJECTION 5 WEEKS AGO, HAD SWELLING AND BRUISING AFTER - PT DISCUSSED WITH DR GREENWOOD AND WAS TOLD SHE WAS ALLERGIC TO IT AND NOT TO RECEIVE IN THE FUTURE - MILD BRUISING REMAINS Difficult intravenous access Pacemaker 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 s/p Medtronic [place] XT DR KELLY Dual Chamber Pacemaker 04/12/21 LAST PACEMAKER CHECK 12/2021 Cancer HX BREAST 7 YR AGO, R mastectomy and lymph node excision, No chemo or XRT RUE limb restriction Chronic obstructive pulmonary disease Stable per pt Gastroparesis Primary hypertension controlled per pt Frequent falls D/t issues with back currently per pt, MOST RECENT FALL 7 WEEKS AGO - LEFT LEG BURSA SAC RUPTURE AND HURT RIGHT SHOULDER PER PT Chronic cough Nonproductive, ongoing evaluation/management. 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 Webber Abnormal CT scan of head Age-indeterminate subcentimeter lacunar infarct of the right frontal lobe santillan radiata extending into the anterior limb of the right internal capsule -- new from 04/13/2019. Chronic lumbar pain Chronic constipation Duodenal hemorrhage HX GI BLEED No recent issues Complex regional pain syndrome type 1 affecting left shoulder Horners syndrome DROOPY EYES, BOTH - RIGHT IS WORSE AND GETS WORSE WITH FATIGUE TIA (transient ischemic attack) 01/2018--reason for plavix, no deficits Post-traumatic stress disorder Osteopenia Fatty liver Lumbar stenosis with neurogenic claudication Carotid stenosis, asymptomatic S/p right CEA (2013) - follows with Dr. Kohli Surgical History Pacemaker Medtronic, placed 03/2021, follows with [place] [facility] History of carotid endarterectomy right, 2013 History of breast reconstruction Bilateral, Dr. Barr, Tanner Style 410 implant, size unknown History of colonoscopy with polypectomy History of anesthesia reaction difficulty waking with 1st back surgery @ [facility] [place]--no issues since History of total hysterectomy with bilateral salpingo-oophorectomy (BSO) History of bilateral tubal ligation History of trigger finger x4--bilt hands History of surgery on left wrist plate in place History of carpal tunnel release of both wrists History of fusion of lumbar spine x4 History of fusion of cervical spine x3--"cant turn to the right" History of total right knee replacement (TKR) History of bladder suspension procedure History of esophagogastroduodenoscopy (EGD) History of cholecystectomy History of right breast biopsy malignant History of bilateral mastectomy h/o R breast CA-lymph node removal R side History of oral surgery gum sx History of bilateral cataract extraction Abdominoplasty (05/12/13) Family History Son Crohn's disease Sister Ulcerative colitis Family history of diabetes mellitus Mother Family history of diabetes mellitus Brother Family history of diabetes mellitus Other No family history of adverse response to anesthesia No family history of bleeding disorder Social History Smoking Status: Never smoker Second Hand Exposure: No; Do You Dip or Chew Tobacco: No; Hx Alcohol Use: Yes Alcohol type: beer Hx Substance Use: No Preferred Language: Swazi Communication Ability: Effective Production Welder Required: No Beliefs That Will Affect Care: None marital status: Current Living Situation: Spouse Current Living Situation Comment: LIVES WITH SPOUSE current occupational status: retired Feels Safe at Home: Yes Diet: diabetic during the past year weight has: decreased > 10 lbs Dental Care, Regularly: Yes Physical Activity Frequency: Daily Seatbelt Use: always Sunscreen Use: Yes Assistive Devices: Cane Review of Systems Review of Systems: All systems reviewed & are unremarkable except as noted in HPI & below Physical Exam Physical Exam: Constitutional: Patient appears to be of their stated age. Patient is in no apparent distress. Patient is well-developed. Eyes: Pupils are equal round and reactive to light. Conjunctivae are normal. Anicteric sclera. Ears nose, mouth and throat: Mallampati class 2. Normal posterior oropharynx. Uvula is midline. Neck: Trachea is midline. Visual inspection is normal. Respiratory: Mild crackles. No wheezes. No increased work of breathing. Cardiovascular: Regular rate and rhythm. No murmurs. No edema. TR band in place on wrist. Gastrointestinal: Normal bowel sounds, soft, nontender and nondistended. No hepatosplenomegaly noted. Musculoskeletal: No cyanosis. Patient is able to move all extremities. Strength is 5 out of 5 in the upper and lower extremities. Skin: No rashes, warm dry and intact. Neurologic: No obvious focal neurological deficits seen. Psychiatric: Alert and oriented x3 with a euthymic affect. Results & Data Results & Data Vital Signs (Past 12 Hours) Vital Signs Temp Pulse Pulse Resp BP BP Pulse Ox 10/06/23 15:31 81 16 106/61 96 10/06/23 15:15 81 16 108/74 96 10/06/23 15:00 75 16 89/63 L 96 10/06/23 14:45 53 L 16 106/65 96 10/06/23 12:34 116 H 16 118/75 96 10/06/23 12:18 107 H 23 98 10/06/23 12:18 143/91 H 10/06/23 12:10 102 H 25 H 97 10/06/23 12:00 110 H 22 99 10/06/23 11:50 109 H 18 100 10/06/23 11:40 110 H 16 97 10/06/23 11:30 128 H 19 99 10/06/23 11:20 111 H 16 97 10/06/23 11:10 116 H 26 H 100 10/06/23 11:00 117 H 23 99 10/06/23 10:51 99 10/06/23 10:50 22 100 10/06/23 10:45 116 H 21 129/91 98 10/06/23 10:40 20 98 10/06/23 10:33 36.6 C 117 H 17 129/91 98 10/06/23 10:30 23 10/06/23 10:20 122 H 18 98 10/06/23 10:19 99 10/06/23 10:15 121 H 21 99 O2 Del Method O2 Flow Rate 10/06/23 15:31 Room Air 10/06/23 15:15 Room Air 10/06/23 15:00 Room Air 10/06/23 14:45 Room Air 10/06/23 12:34 Room Air 10/06/23 12:18 10/06/23 12:18 10/06/23 12:10 10/06/23 12:00 10/06/23 11:50 10/06/23 11:40 10/06/23 11:30 10/06/23 11:20 10/06/23 11:10 10/06/23 11:00 10/06/23 10:51 Room Air 0 10/06/23 10:50 10/06/23 10:45 Room Air 10/06/23 10:40 10/06/23 10:33 Room Air 10/06/23 10:30 10/06/23 10:20 10/06/23 10:19 Room Air 10/06/23 10:15 Coding Level of Care Code 05786 CRITICAL CARE 1ST 30-74M Diagnoses Acute non-ST elevation myocardial infarction (NSTEMI) I21.4 Cardiogenic shock R57.0 Elevated troponin I level R79.89 Diabetic ketoacidosis E11.10 Time Spent (min) 39
[2023-10-06] MEDS ORDERED: PHARMACY GLYCEMIC MGMT CONSULT PRN ×2 (16:21→16:29)
[2023-10-06] MEDS ORDERED: GLUCOSE 10 TAB/TUBE PO PRN (16:29)
[2023-10-06] MEDS ORDERED: GLUCAGON FOR INJ 1 MG VIAL SQ PRN (16:29)
[2023-10-06] MEDS ORDERED: GLUCOSE 40% GEL 15 GM TUBE PO PRN (16:29)
[2023-10-06] MEDS ORDERED: CARBOHYDRATES FOR HYPOGLYCEMIA PO PRN (16:29)
[2023-10-06] MEDS ORDERED: DEXTROSE 50% 50 ML SYRINGE IV PRN (16:29)
[2023-10-06] MEDS ORDERED: ICU Protocol for HYPERglycemia SCH (16:30)
[2023-10-06] MEDS ORDERED: NOREPINEPHRINE/D5W 4 MG/250 ML PLCT IV SCH (16:30)
--- NOTE | 2023-10-06 16:33 | Cardiac Catheterization ---
[facility] Data: Rn Dermatology Cardiac Status Clinical evaluation leading to the procedure CAD Presenation: Non STEMI Anginal Classification: CCS IV Diagnostic Physicians Name: Latrell Javier MD Closure Device Recommendations: PCI without planned CABG Cardiac Cath Procedure Full Procedure Date October 06, 2023 Pre-Procedure Diagnosis Pre-Procedure Diagnosis: Non STEMI AUC Score AUC Score: 8 Post-Procedure Diagnosis Post-Procedure Diagnosis: Severe CAD, Successful PCI and Normal Intracardiac Pressures Procedure(s) Performed Procedure(s) Performed: Coronary Angiography, Left Heart Cath and Drug Eluting Stent K 12 Principal Latrell Javier MD Casualty Claim Adjuster(s) Hemming And Tacking Machine Operator Estimated Blood Loss Estimated Blood Loss: 20 Medication(s) Medication(s): Fentanyl, Heparin, Lidocaine 1%, Nicardipine, Nitroglycerin and Versed Summary of Findings Indication: High risk NSTEMI. Persistent chest pain for >3 days. New severe LV dysfunction with anterior wall motion abnormality on echo. Access: 6 Fr right radial artery Catheters: [place], EBU 3.5 guide Findings: LM -normal caliber, no significant disease LAD -small to medium caliber, 98% earlymid stenosis just prior to bifurcation with D2. Small distal LAD with BARRIE I-II flow and tapers prior to apex. Small to medium D2 with 50% ostial stenosis Circumflex -small to medium caliber, 80% proximal stenosis, left PLB without significant disease. RCA -dominant, medium caliber, calcified, diffuse 30 to 40% proximal disease, mid segment luminal irregularities. Distal vessel without significant disease. LVEDP -11 -- PCI -- Antithrombotic therapy: Heparin, clopidogrel Procedure: Left main cannulated with EBU 3.5 guide Whisper wire placed into second diagonal Ornamental Metal Worker Apprentice 50 wire eventually navigated across stenosis and into distal LAD Mid LAD lesion predilated with 2.0 compliant balloon Dilated lesion stented with 2.25 x 26 mm [place] drug-eluting stent Stent post-dilated with 2.5 noncompliant balloon Jailed second diagonal rewired with new master pilot 50 wire Ostium/proximal D2 dilated through stent struts with 1.5 balloon IC vasodilators administered for spasm Post procedure BARRIE 3 flow, stent well expanded with minimal residual stenosis. Residual ostial stenosis of jailed diagonal but BARRIE-3 flow. Arterial Closure: TR band Summary: 1. Severe multi-vessel coronary artery disease -Acute 98% earlymid LAD stenosis -80% proximal circumflex 2. Normal intracardiac filling pressure 3. Cardiogenic shock requiring pressors 4. Successful PCI of mid LAD with single drug-eluting stent (2.25 x 26 mm [place] KRISH postdilated with 2.5 NC). PTCA of jailed second diagonal with 1.5 balloon Recommendations: To ICU for continued monitoring Wean norepinephrine as able Loaded with clopidogrel 600 mg in Rn Dermatology Continue extended dual antiplatelet therapy Restart beta-neeru, ARB as BP allows Aggressive lipid management, start rosuvastatin, continue Zetia Consult cardiac Rehab Plan on possible staged PCI of proximal circumflex pending clinical course Hemodynamics Rest Ao:: 76/42/57 Final Ao: 100/56/77 LV: 101/11 Recommendations Recommendations: PCI without planned CABG Specimens Specimens: None Radiation Exposure (mGy) 2478 Contrast (mls) 95 Anesthesia Moderate [id number] Procedural Complication(s) None Disposition ICU I attest to the content of the Intraoperative Record and any orders documented therein. Any exceptions are noted below. [facility] Card Cath Procedure Codes Cardiac Catheterization Procedure 1: Cardiovascular Cath Procedures: 54766 Coronaries and LHC (+/-LV) Moderate Sedation Procedure 1: Sedation/Anesthesia: 96138 Mod Sedation by the same physician;Init15 Min Child Age 5 & Up Procedure 2: Sedation/Anesthesia: 44330 Mod Sedation by the same physician; Ea [id number] Minutes Stenting Procedure 1: Cardiovascular Stent Procedures: 65395 Perc transluminal revascularization of acute sub/total occl, aMI PG Care Time/CCT Total # of Minutes Spent Total Time Spent with Patient: Total time spent is greater than 50% in coordination of care (as documented) at patient's floor/unit and/or counseling patient:
[2023-10-06] MEDS: MAGNESIUM SULFATE / D5W 1 GM/100 ML BAG IV SCH ×3 (17:00→20:53)
[2023-10-06 17:21] LABS: BUN Creatinine Ratio 20.3 (10-20); Calcium 8.4 mg/dl (8.6-10.3); Creatinine Clr Calc Pharmacy 73.9 ml/min; Est GFR (African American) 99.1 ml/min; Est GFR (Non-African American) 85.5 ml/min; Magnesium 1.7 mg/dl (1.7-2.4); Potassium 3.8 mmol/L (3.5-5.1)
[2023-10-06] MEDS: INSULIN ASPART PER UNIT CHARGE SC SCH ×3 (17:46→21:31)
[2023-10-06] MEDS ORDERED: NovoLIN-N (NPH) PER UNIT CHARGE SQ STA (17:49)
--- NOTE | 2023-10-06 17:51 | Procedure Note ---
Procedure Note Date of Service October 06, 2023 Note ARTERIAL LINE PROCEDURE NOTE: Procedure: Arterial Line Placement Attending: Dr. García APC: Quynh Cramer PA-C Indication: Monitoring on Pressors/Frequent labs Anesthesia: Lidocaine 1% Verbal consent given. Indication, risks, and benefits were explained at length. A time-out was completed verifying correct patient, procedure, site, positioning, and implant(s) or special equipment if applicable. Allens test was performed to ensure adequate perfusion. Patients L wrist was prepped and draped in the usual sterile fashion. Ultrasound guidance was used to aid needle placement. A 20g Arrow arterial line was introduced into the L radial artery. Catheter was threaded, and the needle was removed with appropriate blood return. Good waveform was observed. The patient tolerated the procedure well. Blood Loss: Minimal Complications: None Procedural Ultrasound Guidance: Procedure Date: 10/06/23 Indication: Catheter placement Attending: Dr. García APC: Quynh Cramer PA-C Artery Identified: YES Complications: NONE Patient tolerated procedure: WELL Coding
[2023-10-06] MEDS ORDERED: ICU ELECTROLYTE REPLACEMENT PROTOCOL SCH (18:00)
[2023-10-06 18:10] LABS: Phosphorus 3.4 mg/dl (2.5-4.9)
[2023-10-06] MEDS: ICU ELECTROLYTE REPLACEMENT PROTOCOL SCH (18:32)
[2023-10-06] MEDS ORDERED: FUROSEMIDE 40 MG/4 ML VIAL IV ONE (19:02)
--- NOTE | 2023-10-06 19:24 | XRay Report ---
SINGLE VIEW CHEST CLINICAL HISTORY: Hypoxia. FINDINGS: An AP, portable, upright chest radiograph is compared to study performed earlier the same d ay 10/06/2023. The examination is degraded by portable technique and apical lordotic positioning. A 2- lead cardiac pacemaker is unchanged in position. The cardiomediastinal silhouette is top normal for p rojection. There is pulmonary vascular congestion with interstitial edema. This is new from today's e arlier examination. There is mild bibasilar atelectasis. No airspace consolidation or large pleural e ffusion is identified. No pneumothorax is seen. The skeletal structures are osteopenic. The bony thor ax is grossly intact. Advanced arthritic change is seen in the shoulders. Fusion hardware is seen in the cervical spine. IMPRESSION: 1. Pulmonary edema. This is new from today's earlier examination. 2. No airspace consolidation or large pleural effusion is identified ACT 112: Negative or not required by law. Electronically signed by: Driss Stanley M.D. 10/06/2023 7:23 PM
[2023-10-06] MEDS: POTASSIUM CHLORIDE / WTR 10 MEQ/100 ML PLCT IV SCH ×4 (19:42→22:45)
[2023-10-06] MEDS: EZETIMIBE 10 MG TAB PO SCH (19:43)
[2023-10-06] MEDS ORDERED: LORazepam 2 MG/1 ML VIAL IV STA (19:51)
[2023-10-06] MEDS ORDERED: INSULIN PROTOCOL GOAL RANGE ONE (20:20)
[2023-10-06] MEDS ORDERED: SEVERE STRESS LEVEL ONE (20:20)
[2023-10-06] MEDS ORDERED: ATORVASTATIN 40 MG TAB PO SCH (21:00)
[2023-10-06] MEDS ORDERED: NovoLIN-R BOLUS FROM BAG IV ONE (21:15)
[2023-10-06] MEDS ORDERED: INSULIN REGULAR 250 UNITS in SODIUM CHLORIDE 0.9% 247.5 ML IV SCH (21:15)
[2023-10-06 21:36] LABS: BUN Creatinine Ratio 21.9 (10-20); Calcium 8.3 mg/dl (8.6-10.3); Creatinine Clr Calc Pharmacy 69.5 ml/min; Est GFR (African American) 99.1 ml/min; Est GFR (Non-African American) 85.5 ml/min; Magnesium 2.4 mg/dl (1.7-2.4)
[2023-10-06] MEDS ORDERED: MoRPHine SULFATE 2 MG/ML CARP IV PRN (23:31)
[2023-10-07] MEDS: ONDANSETRON INJ 2 MG/ML 2 ML VIAL IV PRN ×4 (00:02→20:34)
[2023-10-07 04:14] LABS: Basophils # (auto) 0.02 K/uL (0.00-0.20); Basophils % (auto) 0.2 %; Eosinophils # (auto) 0.02 K/uL (0.00-0.50); Eosinophils % (auto) 0.2 %; Hemoglobin 13.4 g/dl (12.0-16.0); Immature Granulocytes % (auto) 0.8 %; Lymphocytes # (auto) 1.62 K/uL (1.20-3.40); Mean Corpuscular Hgb Conc 34.4 g/dL (32.0-36.0); Mean Corpuscular Volume 87.4 fL (80.0-100.0); Mean Platelet Volume 9.9 fL (9.4-12.4); Monocytes # (auto) 0.79 K/uL (0.11-0.59); Monocytes % (auto) 6.3 %; Neutrophils # (auto) 9.92 K/uL (1.40-6.50); Neutrophils % (auto) 79.5 %; Platelet Count 394 K/uL (130-400); RDW Coefficient of Variation 14.5 % (11.5-14.5); RDW Standard Deviation 46.6 fL (36.4-46.3); Red Blood Count 4.46 M/uL (4.20-5.40); White Blood Count 12.47 K/ul (4.8-10.8)
[2023-10-07 04:30] LABS: Chol HDL Ratio 4.4 (0-5); Creatinine Clr Calc Pharmacy 75.7 ml/min; Est GFR (African American) 101.7 ml/min; Est GFR (Non-African American) 87.8 ml/min; Magnesium 2.3 mg/dl (1.7-2.4); Phosphorus 2.5 mg/dl (2.5-4.9); Potassium 4.1 mmol/L (3.5-5.1)
[2023-10-07] MEDS: ICU ELECTROLYTE REPLACEMENT PROTOCOL SCH (05:46)
[2023-10-07] MEDS: POT PHOSPHATE MONOBASIC W/ SOD TAB PO SCH ×3 (06:28→13:16)
[2023-10-07 07:27] LABS: Estimated Average Glucose 269 mg/dl
[2023-10-07] MEDS: INSULIN ASPART PER UNIT CHARGE SC SCH ×4 (07:40→20:27)
[2023-10-07] MEDS: ASPIRIN 81 MG ECTAB PO SCH (07:54)
[2023-10-07] MEDS: DULoxetine HCL 30 MG CAP PO SCH (07:54)
[2023-10-07] MEDS: CLOPIDOGREL BISULFATE 75 MG TAB PO SCH (07:54)
[2023-10-07] MEDS: UMECLIDINIUM BROMIDE 62.5MCG/BLISTER 7 PUFFS/INHALER INH SCH (07:55)
[2023-10-07] MEDS: PANTOprazole 40 MG TAB PO SCH (07:55)
[2023-10-07] MEDS: ROSUVASTATIN CALCIUM 20 MG TAB PO SCH (07:55)
[2023-10-07] MEDS: FLUTICASONE/VILANTEROL 100/25MCG 14 PUFFS/INHALER INH SCH (07:55)
--- NOTE | 2023-10-07 08:07 | Critical Care Progress Note ---
Date of Service October 07, 2023 Assessment & Plan (1) Acute non-ST elevation myocardial infarction (NSTEMI): (2) Cardiogenic shock: (3) Elevated troponin I level: (4) Diabetic ketoacidosis: Plan 78-year-old female with a history of hypertension, insulin-dependent diabetes me llitus type 2, dual-chamber pacemaker and coronary artery disease presenting with an NSTEMI status post PCI with KRISH to mid LAD. Neurologic: No issues at present. Delirium precautions. Multimodal pain management Pulmonary: Requiring low-flow oxygen i/s/o pulmonary edema Now off BIPAP SpO2 goal 92% Cardiovascular: Maintain maps above 65. Norepinephrine has been weaned to off. Cardiology following. Appreciate input. ASCVD guideline based therapy. Formal TTE today Gastrointestinal: Advance diet as tolerated Renal: Received 1 dose of Lasix with good result, schedule 20mg BID and titrate to response Replace electrolytes per protocol. Infectious disease: No signs of obvious infectious etiology. Hematologic: History of breast cancer with no active disease. H&H stable. Endocrine: Hemoglobin A1c 11. Transition off insulin infusion as able Lines and tubes: Peripheral IVs in place L radial arterial line: remove today VTE prophylaxis: SCDs CODE STATUS: Full Disposition: ICU, likely downgrade this afternoon I have personally spent 30 minutes of critical care time in the direct management of this patient. This is a life/limb threatening event. This includes time spent evaluating patient, direct bedside care, chart review, placing orders, interpretation of diagnostic studies, discussion with consultants, patient, and family members, as well as other required patient management activities. This time is exclusive of all separately billable procedures, and teaching time and separate from and in addition to any other critical care service time. D/w Dr. García Admission and Anticipated Discharge Date Admission Date: October 06, 2023 Subjective 78-year-old female with a history of hypertension, insulin-dependent diabetes mellitus type 2 (A1c 11.0), dual-chamber pacemaker and coronary artery disease presenting with an NSTEMI status post PCI with KRISH to mid LAD. Has residual disease 80% to circumflex. Overnight patient decompensated requiring BIPAP and diuresis with significant improvement. Denies chest pain, shortness of breath this AM. Review of Systems Review of Systems: All systems reviewed & are unremarkable except as noted in HPI & below Physical Exam Constitutional: WD/WN, vitals as above Eyes: PERRL, conjunctivae normal, anicteric sclerae Neck: trachea midline, no thyromegaly Respiratory: normal respiratory effort Auscultation: + diminished lung samira nds diminished at bases Cardiovascular: RRR, no murmur, no edema Paced rhythm, no significant murmur Gastrointestinal (Abdomen): normal bowel sounds, soft, nontender, no hepatosplenomegaly Musculoskeletal: no cyanosis or clubbing, extremities motor strength 5/5 Skin: no rashes, warm and dry Neurologic: PERRL, EOMI, accommodation nl, no face palsy, no dysarthria Results & Data Results & Data Vital Signs (Past 12 Hours) Vital Signs Temp Pulse Resp BP Pulse Ox O2 Del Method O2 Flow Rate 10/07/23 06:00 84 18 95 Nasal Cannula 2 10/07/23 06:00 129/59 L 10/07/23 05:00 131/73 10/07/23 05:00 84 19 96 BiPAP 10/07/23 04:00 81 21 96 BiPAP 10/07/23 04:00 127/70 10/07/23 03:56 36.5 C 10/07/23 03:00 79 19 96 BiPAP 10/07/23 03:00 138/71 10/07/23 02:38 80 19 95 10/07/23 02:00 80 19 94 BiPAP 10/07/23 02:00 131/86 10/07/23 01:30 79 25 H 94 BiPAP 10/07/23 01:01 81 18 95 BiPAP 10/07/23 01:01 143/70 H 10/07/23 00:11 36.6 C 10/07/23 00:00 114/68 10/07/23 00:00 79 18 95 BiPAP 10/07/23 00:00 76 10/06/23 23:30 76 21 97 10/06/23 23:00 131/79 10/06/23 23:00 78 19 95 BiPAP 10/06/23 22:35 81 23 95 10/06/23 22:00 80 21 95 BiPAP 10/06/23 22:00 149/87 H 10/06/23 21:30 81 21 94 BiPAP 10/06/23 21:01 84 20 95 BiPAP 10/06/23 21:01 146/100 H 10/06/23 21:00 84 20 96 BiPAP 10/06/23 20:30 86 24 90 BiPAP 10/06/23 20:02 88 20 94 BiPAP 10/06/23 20:00 BiPAP 10/06/23 20:00 36.6 C FiO2 10/07/23 06:00 10/07/23 06:00 10/07/23 05:00 10/07/23 05:00 30 10/07/23 04:00 30 10/07/23 04:00 10/07/23 03:56 10/07/23 03:00 30 10/07/23 03:00 10/07/23 02:38 30 10/07/23 02:00 30 10/07/23 02:00 10/07/23 01:30 30 10/07/23 01:01 35 10/07/23 01:01 10/07/23 00:11 10/07/23 00:00 10/07/23 00:00 40 10/07/23 00:00 10/06/23 23:30 10/06/23 23:00 10/06/23 23:00 45 10/06/23 22:35 50 10/06/23 22:00 50 10/06/23 22:00 10/06/23 21:30 65 10/06/23 21:01 60 10/06/23 21:01 10/06/23 21:00 55 10/06/23 20:30 45 10/06/23 20:02 45 10/06/23 20:00 10/06/23 20:00 Coding Level of Care Code 14726 CRITICAL CARE 1ST 30-74M Diagnoses Acute non-ST elevation myocardial infarction (NSTEMI) I21.4 Cardiogenic shock R57.0 Elevated troponin I level R79.89 Diabetic ketoacidosis E11.10
[2023-10-07] MEDS ORDERED: METOCLOPRAMIDE HCL INJ 5 MG/ML 2 ML VIAL IV ONE (08:46)
[2023-10-07] MEDS ORDERED: NovoLIN-N (NPH) PER UNIT CHARGE SQ STA (08:52)
[2023-10-07] MEDS ORDERED: EZETIMIBE 10 MG TAB PO SCH (09:00)
[2023-10-07] MEDS ORDERED: CALCIUM GLUCONATE 10% 1,000 MG in NS X1 BAG IV ONE (10:00)
--- NOTE | 2023-10-07 10:34 | XRay Report ---
XR chest 1V portable HISTORY: Resp failure COMPARISON: Chest 10/06/2023. FINDINGS: No pneumothorax. No pleural effusions. The pulmonary edema has essentially resolved. No foc al lung consolidations. The heart is normal in size. The left-sided dual-chamber pacemaker. Vertebrop lasty and cervical spinal fusion hardware again noted. Degenerative changes within the shoulders. IMPRESSION: Interval resolution of the pulmonary edema. ACT 112: Negative or not required by law. Electronically signed by: Cornell Fisher M.D. 10/07/2023 10:32 AM
[2023-10-07] MEDS: FUROSEMIDE 20 MG TAB PO SCH ×2 (10:50→16:46)
--- NOTE | 2023-10-07 13:12 | XCELERA ---
[id number] \\[email or web address]\[id number]
[2023-10-07 13:20] LABS: BUN Creatinine Ratio 22.2 (10-20); Calcium 8.1 mg/dl (8.6-10.3); Creatinine Clr Calc Pharmacy 82.8 ml/min; Est GFR (African American) 104.8 ml/min; Est GFR (Non-African American) 90.4 ml/min; Potassium 3.8 mmol/L (3.5-5.1)
--- NOTE | 2023-10-07 13:38 | Electrocardiogram Report ---
Test Reason : Blood Pressure : / mmHG Vent. Rate : 084 BPM Atrial Rate : 084 BPM P-R Int : 192 ms QRS Dur : 114 ms QT Int : 380 ms P-R-T Axes : 067 -47 029 degrees QTc Int : 449 ms Atrial-sensed ventricular-paced rhythm Abnormal ECG When compared with ECG of 06-OCT-2023 14:48, Vent. rate has increased BY 17 BPM Confirmed by Zia Hinds ([id number]) on 10/07/2023 1:38:41 PM Referred By: REFERRED SELF Confirmed By:Zia Hinds
--- NOTE | 2023-10-07 14:29 | Pharmacy Report ---
Pharmacy Glycemic Short Note 2 - Date of Service October 07, 2023 - Glycemic Short BSG Results (Last 24 hours): 10/06/23 10/06/23 10/06/23 16:37 19:57 20:52 Glucose 307 H* 392 H* POC Glucose POC Glucose (other) 414 H* 10/06/23 10/06/23 10/06/23 21:00 22:37 23:32 Glucose POC Glucose POC Glucose (other) 400 H* 335 H 293 H 10/07/23 10/07/23 10/07/23 00:33 01:36 02:30 Glucose POC Glucose POC Glucose (other) 270 H 241 H 212 H 10/07/23 10/07/23 10/07/23 03:31 03:38 04:29 Glucose 171 H POC Glucose POC Glucose (other) 182 H 160 H 10/07/23 10/07/23 10/07/23 05:33 06:29 07:28 Glucose POC Glucose 121 H POC Glucose (other) 156 H 143 H 10/07/23 10/07/23 10/07/23 09:16 10:54 12:37 Glucose 124 H POC Glucose 116 H 99 POC Glucose (other) OUTPATIENT ANTIDIABETIC REGIMEN: * U-500: 60 units SC BID * Metformin ER 500 mg PO BID * HbA1c: 11% (10/01/23) ASSESSMENT: * 78 yo F admitted on 10/06/23 secondary to NSTEMI. Pharmacy has been consulted to assist with inpatient glycemic management. Patient is a Type 2 diabetic as an outpatient. Please refer to outpatient regimen and most recent HbA1c above. * BSGs were running in the 300-400 mg/dL range yesterday so insulin drip was started. Patient took normal home dose of 60 units U-500 prior to admission followed by getting 30 units NPH + 9 units Novolog + 15 units from IV insulin infusion. BSGs were: [phone] mg/dL. * BSG this AM was 121 mg/dL. Gave reduced dose of NPH. NPH pharmacokinetics match that of U-500 closely. Insulin infusion rate trending down throughout the morning. Discontinued insulin drip around noon today. Patient's BSG 99 mg/dL at that time. * Patient is experiencing significant nausea/vomiting at this time. PO intake is poor. Therefore, will continue with reduced dose of NPH. Follow closely this evening. Continue with bolus per weight/stress of 3. PLAN FOR INPATIENT GLYCEMIC CONTROL: * Hold outpatient oral diabetes medications * Basal insulin * NPH 15 units SC BID * Bolus insulin * NovoLog per scale ACHS or Q6hrs while NPO * Goal Range: Low 110 mg/dL - High 140 mg/dL * Correction Factor: 20 mg/dL/unit * Nutritional / Prandial insulin per carb ratio of 1 unit per 7 grams CHO consumed
[2023-10-07] MEDS ORDERED: NovoLIN-N (NPH) PER UNIT CHARGE SQ ONE (16:30)
--- NOTE | 2023-10-07 17:18 | Cardiology Progress Note ---
Date of Service October 07, 2023 Assessment & Plan (1) NSTEMI (non-ST elevated myocardial infarction): Plan: Post PCI to mid LAD Residual severe proximal circumflex disease 2. Severe LV dysfunction/ischemic cardiomyopathyEF 25-30% with apical akinesis 3. DKA/type 2 diabetesAG closed 4. Dyslipidemia 5. Hyponatremia 6. Hypertension 7. AV block post dual-chamber PPM 8. History of cerebrovascular disease with prior CVA 9. Suspected spinal stenosis 10. Recurrent falls Chest pain improving Electrically stable Hemodynamically stable off norepinephrine Minimal residual congestion following diuresis No apparent access site complications Continue DAPT with aspirin, clopidogrel Restart low-dose beta-neeru. ARB/spironolactone as BP allows Additional diuresis today. Reassess tomorrow need for continued twice daily diuretic Continue statin, Zetia Plan for possible staged PCI of circumflex tomorrow. Please keep n.p.o. after midnight. Appreciate ICU and hospital medicine care. Admission and Anticipated Discharge Date Admission Date: October 06, 2023 Subjective Minimal residual chest discomfort. Still with some nausea. Overnight dyspneic, hypoxic with increased pulmonary edema requiring BiPAP and IV diuresis. Responded appropriately and back on nasal cannula today Repeat limited echo today shows unchanged LV function with large LAD distribution wall motion abnormality including apical akinesis. No LV thrombus Telemetry reviewedno prolonged ventricular ectopy Review of Systems Review of Systems: All systems reviewed & are unremarkable except as noted in HPI & below Physical Exam Physical Exam: General: Comfortable HEENT: Sclerae anicteric Lungs: Clear to auscultation Cardiac: Regular rate and rhythm, no murmurs. Vascular: Right radial artery access site with no ecchymosis, hematoma. Distal pulse and sensation intact. Abdomen: Soft, nontender Extremities: Well perfused, no peripheral edema Neuro: Nonfocal Psych: Alert orient x3, normal affect and mood Results & Data Vital Signs (Past 12 Hours) Vital Signs Pulse Resp BP Pulse Ox O2 Del Method O2 Flow Rate FiO2 10/07/23 12:09 Nasal Cannula 2 10/07/23 11:00 90 24 133/73 97 Nasal Cannula 2 10/07/23 10:00 84 19 151/68 H 89 L Nasal Cannula 2 10/07/23 09:00 83 24 129/70 92 10/07/23 08:00 89 26 H 143/71 H 98 Nasal Cannula 2 10/07/23 07:00 84 24 114/64 94 Nasal Cannula 2 10/07/23 06:00 84 18 95 Nasal Cannula 2 10/07/23 06:00 129/59 L 10/07/23 05:00 131/73 10/07/23 05:00 84 19 96 BiPAP 30 PG Care Time/CCT Total # of Minutes Spent Total Time Spent with Patient: Total time spent is greater than 50% in coordination of care (as documented) at patient's floor/unit and/or counseling patient: Coding Level of Care Code 34349 SUB INP/OBS CARE 3/50MIN Diagnoses NSTEMI (non-ST elevated myocardial infarction) I21.4
[2023-10-07] MEDS ORDERED: METOCLOPRAMIDE HCL INJ 5 MG/ML 2 ML VIAL IV STA (18:04)
[2023-10-07] MEDS: EZETIMIBE 10 MG TAB PO SCH (20:14)
[2023-10-07] MEDS: METOPROLOL TARTRATE 25 MG TAB PO SCH (20:15)
[2023-10-07] MEDS: MELATONIN 3 MG TAB PO SCH (20:15)
--- NOTE | 2023-10-07 21:40 | Hospitalist Progress Note ---
Date of Service October 07, 2023 Assessment & Plan (1) Acute non-ST elevation myocardial infarction (NSTEMI): (2) Cardiogenic shock: (3) Elevated troponin I level: (4) Diabetic ketoacidosis: Plan 1) NSTEMI (non-ST elevated myocardial infarction): Plan: Cardiac cath completed Showed severe multi vessel CAD Successful PCI of mid LAD with Single KRISH Loaded with clopidogrel 600 mg in Accounting Officer Continue extended dual antiplatelet therapy Restart beta-neeru, ARB as BP allows Aggressive lipid management, start rosuvastatin, continue Zetia Consult cardiac Rehab (2) Diabetic ketoacidosis: Plan: anion gap closed. resumed SS insulin and glargine will monitor (3) Depression with anxiety: Plan: Continue duloxetine Hold doxepin - increased risk of arrythmias (4) Gastroesophageal reflux disease: Plan: Switch dexlansoprazole for pantoprazole per hospital formulary (5) Intrinsic asthma: Plan: No current exacerbation suspected based on exam Continue her routine inhalers, did not yet take this morning. Plan VTE Prophylaxis - IV heparin Admission and Anticipated Discharge Date Admission Date: October 06, 2023 Subjective Patient reports no new symptoms. Review of Systems Review of Systems: All systems reviewed & are unremarkable except as noted in HPI & below Physical Exam Physical Exam: Constitutional: WD/WN, vitals as above Eyes: PERRL, conjunctivae normal, anicteric sclerae ENMT: external ear and nose normal, oropharynx normal Respiratory: normal respiratory effort, lungs clear to auscultation Cardiovascular: RRR, no murmur, no edema Gastrointestinal (Abdomen): normal bowel sounds, soft, nontender, no hepatosplenomegaly Musculoskeletal: no cyanosis or clubbing, extremities motor strength 5/5 Skin: no rashes, warm and dry Neurologic: moves all extremities and awake; not confused Psychiatric: Orientation: alert and oriented x 3 Affect: + anxious affect Genitourinary: no CVA tenderness Results & Data Results & Data Vital Signs (Past 12 Hours) Vital Signs Temp Pulse Pulse Resp BP BP Pulse Ox 10/07/23 20:52 99 H 10/07/23 19:07 36.7 C 100 H 18 99/66 L 95 10/07/23 17:00 84 22 138/70 94 10/07/23 16:01 95 H 20 93 10/07/23 16:00 95 H 22 146/103 H 91 10/07/23 15:01 70 20 93 10/07/23 15:00 58 L 20 91 10/07/23 14:56 92 H 17 125/85 94 10/07/23 14:00 94 H 20 93 10/07/23 13:01 94 H 29 H 94 10/07/23 13:00 94 H 19 93 10/07/23 12:09 10/07/23 12:00 95 H 20 150/69 H 98 10/07/23 11:00 90 24 133/73 97 10/07/23 10:00 84 19 151/68 H 89 L O2 Del Method O2 Flow Rate 10/07/23 20:52 10/07/23 19:07 Nasal Cannula 1 10/07/23 17:00 Nasal Cannula 2 10/07/23 16:01 10/07/23 16:00 10/07/23 15:01 10/07/23 15:00 10/07/23 14:56 Nasal Cannula 2 10/07/23 14:00 10/07/23 13:01 Nasal Cannula 2 10/07/23 13:00 10/07/23 12:09 Nasal Cannula 2 10/07/23 12:00 Nasal Cannula 2 10/07/23 11:00 Nasal Cannula 2 10/07/23 10:00 Nasal Cannula 2 PG Care Time/CCT Total # of Minutes Spent Total Time Spent with Patient: Total time spent is greater than 50% in coordination of care (as documented) at patient's floor/unit and/or counseling patient: Coding Level of Care Code 54757 SUB INP/OBS CARE 3/50MIN Diagnoses Acute non-ST elevation myocardial infarction (NSTEMI) I21.4 Cardiogenic shock R57.0 Elevated troponin I level R79.89 Diabetic ketoacidosis E11.10
[2023-10-08] MEDS: ACETAMINOPHEN 500 MG TAB PO PRN ×2 (00:06→11:29)
[2023-10-08] MEDS ORDERED: Nursing to Pharmacy Communication SCH (00:30)
[2023-10-08] MEDS: INSULIN ASPART PER UNIT CHARGE SC SCH ×4 (06:16→20:18)
[2023-10-08 06:41] LABS: Hematocrit (blood only) 35.5 % (37.0-47.0); Hemoglobin 12.2 g/dl (12.0-16.0); Mean Corpuscular Hemoglobin 29.7 pg (25.0-34.0); Mean Corpuscular Hgb Conc 34.4 g/dL (32.0-36.0); Mean Corpuscular Volume 86.4 fL (80.0-100.0); Platelet Count 330 K/uL (130-400); RDW Coefficient of Variation 14.2 % (11.5-14.5); RDW Standard Deviation 45.2 fL (36.4-46.3); Red Blood Count 4.11 M/uL (4.20-5.40); White Blood Count 13.11 K/ul (4.8-10.8)
[2023-10-08 07:10] LABS: Calcium 7.7 mg/dl (8.6-10.3); Magnesium 1.8 mg/dl (1.7-2.4); Potassium 3.8 mmol/L (3.5-5.1)
[2023-10-08 07:16] LABS: BUN Creatinine Ratio 17.2 (10-20); Est GFR (African American) 102.3 ml/min; Est GFR (Non-African American) 88.3 ml/min; Phosphorus 2.2 mg/dl (2.5-4.9)
[2023-10-08] MEDS: PANTOprazole 40 MG TAB PO SCH (08:21)
[2023-10-08] MEDS: CLOPIDOGREL BISULFATE 75 MG TAB PO SCH (08:21)
[2023-10-08] MEDS: ROSUVASTATIN CALCIUM 20 MG TAB PO SCH (08:21)
[2023-10-08] MEDS: DULoxetine HCL 30 MG CAP PO SCH (08:21)
[2023-10-08] MEDS: ASPIRIN 81 MG ECTAB PO SCH (08:21)
[2023-10-08] MEDS: METOPROLOL TARTRATE 25 MG TAB PO SCH ×2 (08:22→20:18)
[2023-10-08] MEDS: UMECLIDINIUM BROMIDE 62.5MCG/BLISTER 7 PUFFS/INHALER INH SCH (08:22)
[2023-10-08] MEDS: FLUTICASONE/VILANTEROL 100/25MCG 14 PUFFS/INHALER INH SCH (08:22)
[2023-10-08] MEDS ORDERED: NovoLIN-N (NPH) PER UNIT CHARGE SQ STA (08:36)
--- NOTE | 2023-10-08 08:46 | Pre Anesthesia Assessment ---
Date of Service October 08, 2023 Pre Sedation Assessment Vital Signs Temp Pulse Pulse Resp BP BP Pulse Ox 10/08/23 07:47 98.2 F 98 H 16 117/73 95 10/08/23 07:04 104/69 10/08/23 03:59 98.4 F 102 H 18 89/57 L 91 10/08/23 02:30 98 H 10/07/23 20:52 10/07/23 20:52 99 H 10/07/23 19:07 98.1 F 100 H 18 99/66 L 95 10/07/23 17:00 84 22 138/70 94 10/07/23 16:01 95 H 20 93 10/07/23 16:00 95 H 22 146/103 H 91 10/07/23 15:01 70 20 93 10/07/23 15:00 58 L 20 91 10/07/23 14:56 92 H 17 125/85 94 10/07/23 14:00 94 H 20 93 10/07/23 13:01 94 H 29 H 94 10/07/23 13:00 94 H 19 93 10/07/23 12:09 10/07/23 12:00 95 H 20 150/69 H 98 10/07/23 11:00 90 24 133/73 97 10/07/23 10:00 84 19 151/68 H 89 L 10/07/23 09:00 83 24 129/70 92 O2 Del Method O2 Flow Rate 10/08/23 07:47 Room Air 10/08/23 07:04 10/08/23 03:59 Room Air 10/08/23 02:30 10/07/23 20:52 Nasal Cannula 1 10/07/23 20:52 10/07/23 19:07 Nasal Cannula 1 10/07/23 17:00 Nasal Cannula 2 10/07/23 16:01 10/07/23 16:00 10/07/23 15:01 10/07/23 15:00 10/07/23 14:56 Nasal Cannula 2 10/07/23 14:00 10/07/23 13:01 Nasal Cannula 2 10/07/23 13:00 10/07/23 12:09 Nasal Cannula 2 10/07/23 12:00 Nasal Cannula 2 10/07/23 11:00 Nasal Cannula 2 10/07/23 10:00 Nasal Cannula 2 10/07/23 09:00 Cardiovascular RRR, no murmur, no edema Respiratory normal respiratory effort, lungs clear to auscultation Pre-Sedation Airway Assessment Smoking Status: Never smoker Hx Sleep Apnea: No Hx Difficult Intubation: No Short, Thick Neck: No Thyromental Distance: < 3.5 Finger Breadths Oral Cavity: + Dental Abnormalities Mallampati Class: III ASA: ASA3 Procedure Planning Contraindications for Sedation: none Current Medications Reviewed: Yes Notes The planned sedation has been discussed with the patient. Informed Consent was obtained. I have identified the patient, determined the appropriateness of sedation and have assessed the patient immediately prior to the procedure. All medicine(s) and interventions are by my order.
[2023-10-08] MEDS ORDERED: fentaNYL citrate PF 100 MCG/2 ML VIAL ONE (09:20)
[2023-10-08] MEDS ORDERED: HEPARIN (PORCINE) 1000 UNIT/ML 10 ML (CATH LAB USE ONLY) ONE ×2 (09:20→10:47)
[2023-10-08] MEDS ORDERED: niCARdipine HCL INJ 2.5 MG/ML 10 ML AMP ONE (09:20)
[2023-10-08] MEDS ORDERED: MIDAZOLAM HCL 1 MG/ML 2ML VIAL ONE (09:20)
[2023-10-08] MEDS ORDERED: NITROGLYCERIN/D5W 100MCG/ML 20ML SYR ONE (09:21)
[2023-10-08] MEDS ORDERED: NOREPINEPHRINE BITARTRATE 1 MG/ML 4 ML VIAL (CATH LAB USE ONLY) IV ONE ×2 (09:42→09:43)
[2023-10-08] MEDS ORDERED: DOPamine 400MG / 250ML D5W (Cath Lab Use ONLY) IV ONE (10:23)
--- NOTE | 2023-10-08 11:18 | Post Anesthesia Assessment ---
Date of Service October 08, 2023 Post Sedation Assessment Vital Signs Temp Pulse Pulse Resp BP BP BP 10/08/23 09:07 103 H 18 106/70 10/08/23 08:00 98 H 10/08/23 07:47 98.2 F 98 H 16 117/73 10/08/23 07:04 104/69 10/08/23 03:59 98.4 F 102 H 18 89/57 L 10/08/23 02:30 98 H 10/07/23 20:52 10/07/23 20:52 99 H 10/07/23 19:07 98.1 F 100 H 18 99/66 L 10/07/23 17:00 84 22 138/70 10/07/23 16:01 95 H 20 10/07/23 16:00 95 H 22 146/103 H 10/07/23 15:01 70 20 10/07/23 15:00 58 L 20 10/07/23 14:56 92 H 17 125/85 10/07/23 14:00 94 H 20 10/07/23 13:01 94 H 29 H 10/07/23 13:00 94 H 19 10/07/23 12:09 10/07/23 12:00 95 H 20 150/69 H Pulse Ox O2 Del Method O2 Flow Rate 10/08/23 09:07 96 Room Air 10/08/23 08:00 10/08/23 07:47 95 Room Air 10/08/23 07:04 10/08/23 03:59 91 Room Air 10/08/23 02:30 10/07/23 20:52 Nasal Cannula 1 10/07/23 20:52 10/07/23 19:07 95 Nasal Cannula 1 10/07/23 17:00 94 Nasal Cannula 2 10/07/23 16:01 93 10/07/23 16:00 91 10/07/23 15:01 93 10/07/23 15:00 91 10/07/23 14:56 94 Nasal Cannula 2 10/07/23 14:00 93 10/07/23 13:01 94 Nasal Cannula 2 10/07/23 13:00 93 10/07/23 12:09 Nasal Cannula 2 10/07/23 12:00 98 Nasal Cannula 2 Recovery Score Activity: Moves 4 extremities Respiration: Deep Breath/Cough Circulation: +/-20% PreAnes Value Consciousness: Fully Awake Oxygen Saturation: > 92% On Room Air Post Anesthesia Score: 10 Discharge Sedation Level of Care: Fast Track Phase II Post Sedation Plan On clinical assessment, the patient appears to have tolerated the sedation without complications. Patient is recovering as anticipated. Patient will continue to be monitored by nursing and may be discharged when sedation discharge criteria are met per below protocol. Upon Completions of procedure up to 15 minutes continue every 5 minute vital signs and the P.A.R. score; then discharge to a Phase I or Fast Track to Phase II per the following guidelines: * Discharge Patient to appropriate Phase II area if PAR is 8 or greater or return to pre- procedure baseline. The post - procedure orders will be as directed. * If PAR score is less than 8 or not return to pre-procedure baseline then patient will follow Phase I monitoring till PAR is reached for Phase II. The Phase I may be done in procedure room or may call to secure a Phase I area. * If naloxone or flumazenil are used for reversal, hold in Phase I for continued monitoring from when last reversal dose was given for a minimum of 60 minutes or longer pending the nurse and/or physician discretion of patient condition before discharge to Phase II. Please call the Sedation Physician to re-evaluate and complete post-note for discharge to Phase II area. Do NOT discharge from procedure sedation or Phase 1 until post- sedation evaluation note is complete by procedure /sedation MD Sedation Discharge Instructions to be given to the patient at discharge to home.
--- NOTE | 2023-10-08 11:26 | Cardiac Catheterization ---
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 Team Lead Cardiac Status Clinical evaluation leading to the procedure CAD Presenation: Non STEMI Anginal Classification: CCS IV Heart Failure: NYHA Class: CCS IV Diagnostic Physicians Name: Latrell Javier MD Closure Device Recommendations: PCI without planned CABG Cardiac Cath Procedure Full Procedure Date October 08, 2023 Pre-Procedure Diagnosis Pre-Procedure Diagnosis: Non STEMI AUC Score AUC Score: 8 Post-Procedure Diagnosis Post-Procedure Diagnosis: Severe CAD, Successful PCI and Elevated Intracardiac Pressures Procedure(s) Performed Procedure(s) Performed: Coronary Angiography, Left Heart Cath and Drug Eluting Stent [employer] 8 Teacher Latrell Javier MD Occupational Therapy Manager(s) Manny Cash Estimated Blood Loss Estimated Blood Loss: 20 Medication(s) Medication(s): Fentanyl, Heparin, Lidocaine 1%, Nicardipine, Nitroglycerin and Versed Summary of Findings Indication: Staged PCI of circumflex Access: 6 Fr right radial artery Catheters: EBU 3.5 guide Findings: For full details of patient's coronary angiography please see cath report from 10/06/2023. LM -medium caliber, 30% ostial stenosis with waveform dampening with catheter engagement LAD -small to medium caliber, 30% proximal disease, mid LAD stent widely patent. Small to medium jailed D2 subtotally occluded. Circumflex -small to medium caliber, 80% proximal stenosis, left PLB without significant disease. RCA -previously visualized with only mild to moderate proximal disease -- PCI second diagonal-- Antithrombotic therapy: Heparin, clopidogrel Procedure: Left main cannulated with EBU 3.5 guide Pre-procedure flow BARRIE 0 Commercial Manager 50 wire passed across stent struts and occluded proximal diagonal into distal vessel Proximal diagonal lesion predilated with 2.0 compliant balloon Post balloon inflation reestablish flow but residual severe ostial stenosis and proximal segment with possible dissection. BMW wire placed into distal LAD Dilated lesion stented with 2.25 x 12 mm Xience drug-eluting stent with proximal aspect placed just inside LAD stent Stent post-dilated with 2.0 noncompliant balloon Kissing balloon inflation of mid LAD/diagonal bifurcation with 2.0 compliant balloon in LAD and 2.0 NC in diagonal Post procedure BARRIE 3 flow, stents well expanded with minimal residual stenosis and no apparent cardiac complications. PCI of proximal to mid circumflex Commercial Manager 50 wire redirected into circumflex With continued guide engagement had dampened waveforms and became hypotensive with diffuse ST depressions and new nausea. Started on dopamine, catheter/wire pulled back into aorta and had improvement in blood pressures with resolution of ST changes. Repeat angiography revealed no apparent dissection or other coronary complications Left main recannulated with 5 Fr EBU 3.5 guide Whisper wire navigated across stenosis into distal OM Proximal to mid circumflex dilated with 2.0 balloon Proximal to mid circumflex stented with 2.25 x 15 mm Pee drug-eluting stent Stent postdilated with stent balloon Post procedure BARRIE III flow, stent well expanded with no significant residual stenosis and no vessel complications. Completion of procedure dopamine weaned off. LVEDP 29 Arterial Closure: TR band Summary: 1. Subtotal occlusion of jailed second diagonal 2. 80% proximal circumflex stenosis 3. Elevated intracardiac filling pressure 4. Successful PCI of jailed ostial/proximal second diagonal with single drug-elu ting stent (2.25 x 12 mm Xience; LAD/diagonal bifurcation postdilated with kissing balloon inflation). 5. Successful PCI of proximal to mid circumflex with single drug-eluting stent (2.25 x 15 mm Pee). Recommendations: To PCU for continued monitoring Continue dual-antiplatelet therapy for at least next year Continue diuresis Hemodynamics Rest Ao:: 84/54/68 Final Ao: 126/77/102 LV: 124/29 Recommendations Recommendations: PCI without planned CABG Specimens Specimens: None Radiation Exposure (mGy) 3908 Contrast (mls) 90 Anesthesia Moderate [id number] Procedural Complication(s) None Disposition PCU I attest to the content of the Intraoperative Record and any orders documented therein. Any exceptions are noted below. [facility] Card Cath Procedure Codes Cardiac Catheterization Procedure 1: Cardiovascular Cath Procedures: 96817 Left Heart Cath (+/-LV) Moderate Sedation Procedure 1: Sedation/Anesthesia: 88559 Mod Sedation by the same physician;Init15 Min Child Age 5 & Up Procedure 2: Sedation/Anesthesia: 17875 Mod Sedation by the same physician; Ea [id number] Minutes Stenting Procedure 1: Cardiovascular Stent Procedures: 19580 Perc transcatheter placement of intracoronary stent(s), with ang Procedure 2: Cardiovascular Stent Procedures: 15474 Ea addl branch of a major coronary artery PG Care Time/CCT Total # of Minutes Spent Total Time Spent with Patient: Total time spent is greater than 50% in coordination of care (as documented) at patient's floor/unit and/or counseling patient:
[2023-10-08] MEDS ORDERED: FUROSEMIDE 40 MG/4 ML VIAL IV ONE (11:49)
--- NOTE | 2023-10-08 11:55 | Cardiology Progress Note ---
Date of Service October 08, 2023 Assessment & Plan (1) NSTEMI (non-ST elevated myocardial infarction): Plan: Post PCI to mid LAD Staged PCI of proximal circumflex and additional PCI to jailed D2 bifurcation with LAD 2. Severe LV dysfunction/ischemic cardiomyopathyEF 25-30% with apical akinesis 3. DKA/type 2 diabetes 4. Dyslipidemia 5. Chronic hyponatremia 6. Hypertension 7. AV block post dual-chamber PPM 8. History of cerebrovascular disease with prior CVA 9. Suspected spinal stenosis 10. Recurrent falls Post staged PCI to circumflex and additional PCI to jailed diagonal today Continue IV diuresis with additional 40 mg Lasix now. Target -500 to 1 L today Continue DAPT with aspirin, clopidogrel Yvngpwmz-hts-zrbn beta-neeru. ARB/spironolactone as BP allows Continue statin, Zetia -LifeVest concept discussed with family. All in agreement in avoiding Previously scheduled Lumbar spine MRI per primary team Admission and Anticipated Discharge Date Admission Date: October 06, 2023 Subjective Underwent PCI today of jailed second diagonal and proximal circumflex. Intraprocedure course complicated by hypotension requiring transient dopamine, weaned off at completion of procedure. LV filling pressures high. Post procedure feeling well. No chest pain, nausea resolved. Review of Systems Review of Systems: All systems reviewed & are unremarkable except as noted in HPI & below Physical Exam Physical Exam: General: Comfortable HEENT: Sclerae anicteric Lungs: Clear to auscultation Cardiac: Regular rate and rhythm, no murmurs. Vascular: TR band in place Abdomen: Soft, nontender Extremities: Well perfused, no peripheral edema Neuro: Nonfocal Psych: Alert orient x3, normal affect and mood Results & Data Vital Signs (Past 12 Hours) Vital Signs Temp Pulse Pulse Resp BP BP Pulse Ox 10/08/23 11:15 102 H 18 99/61 L 93 10/08/23 11:05 100 H 18 79/53 L 93 10/08/23 09:07 103 H 18 106/70 96 10/08/23 08:00 98 H 10/08/23 07:47 98.2 F 98 H 16 117/73 95 10/08/23 07:04 104/69 10/08/23 03:59 98.4 F 102 H 18 89/57 L 91 10/08/23 02:30 98 H O2 Del Method O2 Flow Rate 10/08/23 11:15 Nasal Cannula 5 10/08/23 11:05 Nasal Cannula 5 10/08/23 09:07 Room Air 10/08/23 08:00 10/08/23 07:47 Room Air 10/08/23 07:04 10/08/23 03:59 Room Air 10/08/23 02:30 PG Care Time/CCT Total # of Minutes Spent Total Time Spent with Patient: Total time spent is greater than 50% in coordination of care (as documented) at patient's floor/unit and/or counseling patient: Coding Level of Care Code 36595 SUB INP/OBS CARE 3/50MIN Diagnoses NSTEMI (non-ST elevated myocardial infarction) I21.4
[2023-10-08] MEDS: FUROSEMIDE 20 MG TAB PO SCH (12:13)
[2023-10-08] MEDS ORDERED: PERCOCET 5/325MG HOMEPACK PO PRN (14:34)
--- NOTE | 2023-10-08 14:41 | Pharmacy Report ---
Pharmacy Glycemic Short Note 2 - Date of Service October 08, 2023 - Glycemic Short BSG Results (Last 24 hours): 10/07/23 10/07/23 10/08/23 16:34 20:22 00:13 Glucose POC Glucose 176 H 154 H 142 H 10/08/23 10/08/23 10/08/23 05:52 06:07 13:12 Glucose 176 H POC Glucose 183 H 227 H OUTPATIENT ANTIDIABETIC REGIMEN: * U-500: 60 units SC BID * Metformin ER 500 mg PO BID * HbA1c: 11% (10/01/23) ASSESSMENT: 10/08: * Patient received total 30 units of basal NPH insulin yesterday and only 2 units of bolus after the insulin drip was discontinued. * Fasting BSG today was elevated at 176 mg/dl. Patient had already gone to slab lifting supervisor before basal insulin could be given this morning. * She ate her lunch after cath. Pre-lunch BSG checked after lunch eaten. So this was elevated today at 227 mg/dl. * Basal NPH 20 units given with lunch. Expect BSG to trend down this evening. * Will give NPH dose for evening a little later than dinner and only 10 units so as not to exceed max of 30 units of basal for today. * Novolog parameters continued the same. 10/07/23: * 78 yo F admitted on 10/06/23 secondary to NSTEMI. Pharmacy has been consulted to assist with inpatient glycemic management. Patient is a Type 2 diabetic as an outpatient. Please refer to outpatient regimen and most recent HbA1c above. * BSGs were running in the 300-400 mg/dL range yesterday so insulin drip was s tarted. Patient took normal home dose of 60 units U-500 prior to admission followed by getting 30 units NPH + 9 units Novolog + 15 units from IV insulin infusion. BSGs were: [phone] mg/dL. * BSG this AM was 121 mg/dL. Gave reduced dose of NPH. NPH pharmacokinetics match that of U-500 closely. Insulin infusion rate trending down throughout the morning. Discontinued insulin drip around noon today. Patient's BSG 99 mg/dL at that time. * Patient is experiencing significant nausea/vomiting at this time. PO intake is poor. Therefore, will continue with reduced dose of NPH. Follow closely this evening. Continue with bolus per weight/stress of 3. PLAN FOR INPATIENT GLYCEMIC CONTROL: * Hold outpatient oral diabetes medications * Basal insulin * NPH 20 units with lunch and 10 units at 7 pm today. * Bolus insulin * NovoLog per scale ACHS or Q6hrs while NPO * Goal Range: Low 110 mg/dL - High 140 mg/dL * Correction Factor: 20 mg/dL/unit * Nutritional / Prandial insulin per carb ratio of 1 unit per 7 grams CHO consumed
[2023-10-08] MEDS ORDERED: oxyCODONE/ACETAMINOPHEN 5mg/325mg TAB PO PRN (15:02)
--- NOTE | 2023-10-08 16:11 | Electrocardiogram Report ---
Test Reason : Blood Pressure : / mmHG Vent. Rate : 100 BPM Atrial Rate : 100 BPM P-R Int : 166 ms QRS Dur : 092 ms QT Int : 348 ms P-R-T Axes : 068 001 068 degrees QTc Int : 448 ms Normal sinus rhythm Poor R wave progression, consider anterior AK vs. lead placement vs. LVH Abnormal ECG When compared with ECG of 06-OCT-2023 19:04, Electronic ventricular pacemaker no longer present Confirmed by Zia Hinds ([id number]) on 10/08/2023 4:11:00 PM Referred By: REFERRED SELF Confirmed By:Zia Hinsd
[2023-10-08] MEDS ORDERED: LORazepam 0.5 MG in SYRINGE 0.25 ML IV PRN (16:39)
[2023-10-08] MEDS: ONDANSETRON INJ 2 MG/ML 2 ML VIAL IV PRN (17:43)
[2023-10-08] MEDS ORDERED: NovoLIN-N (NPH) PER UNIT CHARGE SQ SCH (19:00)
--- NOTE | 2023-10-08 19:35 | Hospitalist Progress Note ---
Date of Service October 08, 2023 Assessment & Plan (1) Acute non-ST elevation myocardial infarction (NSTEMI): (2) Cardiogenic shock: (3) Elevated troponin I level: (4) Diabetic ketoacidosis: Plan 1) NSTEMI (non-ST elevated myocardial infarction): Plan: Cardiac cath completed Showed severe multi vessel CAD Successful PCI of mid LAD with Single KRISH Continue extended dual antiplatelet therapy beta-neeru, ARB Aggressive lipid management, start rosuvastatin, continue Zetia Consult cardiac Rehab (2) Diabetic ketoacidosis: Plan: anion gap closed. resumed SS insulin and glargine will monitor (3) Depression with anxiety: Plan: Continue duloxetine Hold doxepin - increased risk of arrythmias (4) Gastroesophageal reflux disease: Plan: Switch dexlansoprazole for pantoprazole per hospital formulary (5) Intrinsic asthma: Plan: No current exacerbation suspected based on exam Continue her routine inhalers, did not yet take this morning. (6) Back pain, going for MRI of the LS spine to rule out spinal stenosis tomorrow, needs premedication due to claustrophobia, PT OT recommend rehab Admission and Anticipated Discharge Date Admission Date: October 06, 2023 Subjective Coronary artery disease status post PCI, patient coming up back pain, going for MRI to rule out spinal stenosis, complained of headache, started on Percocet stating the Percocet worked Physical Exam Physical Exam: General: Comfortable HEENT: Sclerae anicteric Lungs: Clear to auscultation Cardiac: Regular rate and rhythm, no murmurs. Vascular: TR band in place Abdomen: Soft, nontender Extremities: Well perfused, no peripheral edema Neuro: Nonfocal Psych: Alert orient x3, normal affect and mood Constitutional: WD/WN, vitals as above Eyes: PERRL, conjunctivae normal, anicteric sclerae ENMT: Mallampati Class: II Neck: trachea midline, no thyromegaly Respiratory: normal respiratory effort, lungs clear to auscultation normal respiratory effort Auscultation: + diminished lung sounds Cardiovascular: RRR, no murmur, no edema Gastrointestinal (Abdomen): normal bowel sounds, soft, nontender, no hepatosplenomegaly Musculoskeletal: no cyanosis or clubbing, extremities motor strength 5/5 Skin: no rashes, warm and dry Neurologic: PERRL, EOMI, accommodation nl, no face palsy, no dysarthria moves all extremities and awake; not confused Psychiatric: Orientation: alert and oriented x 3 Affect: + anxious affect Genitourinary: no CVA tenderness Results & Data Results & Data Vital Signs (Past 12 Hours) Vital Signs Temp Pulse Pulse Resp BP BP BP 10/08/23 16:00 94 H 10/08/23 15:32 36.7 C 99 H 18 99/66 L 10/08/23 15:19 96/66 L 93/43 L 10/08/23 15:03 36.5 C 97 H 16 90/56 L 10/08/23 14:00 36.3 C L 91 H 16 113/74 10/08/23 13:02 36.3 C L 68 18 93/60 L 10/08/23 12:45 98 H 18 110/66 10/08/23 12:30 104 H 18 105/65 10/08/23 12:15 99 H 18 127/66 10/08/23 12:00 98 H 18 93/66 L 10/08/23 11:45 99 H 18 90/70 L 10/08/23 11:30 98 H 18 94/61 L 10/08/23 11:15 102 H 18 99/61 L 10/08/23 11:05 100 H 18 79/53 L 10/08/23 09:07 103 H 18 106/70 10/08/23 08:00 98 H 10/08/23 07:47 36.8 C 98 H 16 117/73 Pulse Ox O2 Del Method O2 Flow Rate 10/08/23 16:00 10/08/23 15:32 93 Room Air 10/08/23 15:19 10/08/23 15:03 92 Nasal Cannula 2 10/08/23 14:00 92 Nasal Cannula 2 10/08/23 13:02 90 Room Air 10/08/23 12:45 93 Nasal Cannula 3 10/08/23 12:30 93 Nasal Cannula 3 10/08/23 12:15 93 Nasal Cannula 3 10/08/23 12:00 93 Nasal Cannula 3 10/08/23 11:45 93 Nasal Cannula 5 10/08/23 11:30 93 Nasal Cannula 3 10/08/23 11:15 93 Nasal Cannula 5 10/08/23 11:05 93 Nasal Cannula 5 10/08/23 09:07 96 Room Air 10/08/23 08:00 10/08/23 07:47 95 Room Air PG Care Time/CCT Total # of Minutes Spent Total Time Spent with Patient: Total time spent is greater than 50% in coordination of care (as documented) at patient's floor/unit and/or counseling patient: Coding Level of Care Code 97738 SUB INP/OBS CARE 3/50MIN Diagnoses Acute non-ST elevation myocardial infarction (NSTEMI) I21.4 Cardiogenic shock R57.0 Elevated troponin I level R79.89 Diabetic ketoacidosis E11.10
[2023-10-08] MEDS: MELATONIN 3 MG TAB PO SCH (20:18)
[2023-10-08] MEDS: EZETIMIBE 10 MG TAB PO SCH (20:18)
[2023-10-09] MEDS: ACETAMINOPHEN 500 MG TAB PO PRN ×2 (00:18→11:52)
[2023-10-09 05:28] LABS: BUN Creatinine Ratio 21.1 (10-20); Calcium 7.8 mg/dl (8.6-10.3); Creatinine Clr Calc Pharmacy 77.2 ml/min; Est GFR (African American) 102.9 ml/min; Est GFR (Non-African American) 88.8 ml/min; Magnesium 1.8 mg/dl (1.7-2.4); Phosphorus 2.2 mg/dl (2.5-4.9); Potassium 3.4 mmol/L (3.5-5.1)
[2023-10-09] MEDS ORDERED: NovoLIN-N (NPH) PER UNIT CHARGE SQ SCH (07:30)
[2023-10-09] MEDS: INSULIN ASPART PER UNIT CHARGE SC SCH ×3 (08:51→17:45)
[2023-10-09] MEDS: ROSUVASTATIN CALCIUM 20 MG TAB PO SCH (08:52)
[2023-10-09] MEDS: CLOPIDOGREL BISULFATE 75 MG TAB PO SCH (08:52)
[2023-10-09] MEDS: DULoxetine HCL 30 MG CAP PO SCH (08:52)
[2023-10-09] MEDS: METOPROLOL TARTRATE 25 MG TAB PO SCH (08:52)
[2023-10-09] MEDS: PANTOprazole 40 MG TAB PO SCH (08:52)
[2023-10-09] MEDS: ASPIRIN 81 MG ECTAB PO SCH (08:52)
[2023-10-09] MEDS: FLUTICASONE/VILANTEROL 100/25MCG 14 PUFFS/INHALER INH SCH (08:53)
[2023-10-09] MEDS: UMECLIDINIUM BROMIDE 62.5MCG/BLISTER 7 PUFFS/INHALER INH SCH (08:53)
[2023-10-09] MEDS ORDERED: ENOXAPARIN INJ 40 MG/0.4 ML SYR SQ SCH (09:00)
[2023-10-09] MEDS ORDERED: OXYMETAZOLINE 0.05% 30 ML BTL PRN (13:25)
--- NOTE | 2023-10-09 16:02 | Magnetic Resonance Report ---
MRI OF LUMBAR SPINE WITHOUT IV CONTRAST CLINICAL HISTORY: Low back pain. Radiculopathy. COMPARISON STUDY: Radiographs of lumbar spine dated 05/15/2022. MRI of the lumbar spine dated . TECHNIQUE: MRI of the lumbar spine was performed utilizing various T1 and T2-weighted sequences in th e axial and sagittal planes. IV contrast was not administered for this examination. The examination i s degraded by susceptibility artifact from multilevel metallic spinal hardware. FINDINGS: Lumbar spine: Vertebral body height is maintained throughout the lumbar spine. There is minimal anter olisthesis at L1-L2 and L4-L5. Alignment is otherwise preserved. Anterior and lateral marginal osteop hytes are seen throughout. There is postsurgical change from laminectomy and posterior fusion at L2-L 5. Interpedicular screws are present at all levels. Chronic degenerative endplate changes seen at sev eral levels. There is endplate edema at L1-L2. The transverse processes are grossly intact. No destru ctive bony lesion is identified. Intervertebral discs: There has been discectomy at L2-L3, L3-L4, and L4-L5. Disc desiccation and mode rate loss of height is seen at L1-L2. Mild loss of height is seen at L5-S1. Spinal cord: The visualized spinal cord is normal in morphology and signal intensity. The conus medul elvie terminates at the level of L1. The nerve roots of the cauda equina are normal in morphology. L1-L2: There is broad-based posterior disc bulge which abuts the transiting nerve roots. A superiorly extruded and possibly sequestered fragment is seen eccentric to the left on sagittal image #9 and ax ial image #2. The extruded fragment measures up to 7 mm and may impinge in the transiting left-sided nerve roots. There is only mild central canal stenosis at this level with a minimum AP canal diameter of 8 mm. Lateral disc bulge is seen bilaterally. This contributes to bilateral subarticular stenosis and may abut the exiting bilateral L1 nerve roots. In conjunction with facet arthropathy, there is s evere bilateral neural foraminal stenosis. L2-L3: The central canal is clear. There is a left laterally extruded disc fragment seen on axial santi ge #10. This contributes to subarticular stenosis and likely impinges on the exiting left L2 nerve ro ot. In conjunction with facet arthropathy, there is [id number] left neural foraminal stenosis. The right neural foramen appears patent. L3-L4: The central canal and neural foramina are grossly patent. L4-L5: A right laterally extruded disc fragment is seen on axial lower image #4 of 16. This is better appreciated on the T1-weighted sequences. This contributes to subarticular stenosis and likely impin ges in the exiting right L4 nerve root. There is kbsl-[id number] neural foraminal stenosis on the ri ght at this level. A smaller disc extrusion is seen on the left. The left neural foramen is grossly p atent. L5-S1: There is minimal posterior disc bulge. The central canal is clear. Small bilateral disc bulges and facet arthropathy contribute to mild bilateral neural foraminal stenosis. Sacrum: The visualized sacrum is normal in morphology and signal intensity. Soft tissues: Postsurgical changes seen posterior to the thecal sac at the operative levels. A multil oculated fluid collection posterior to the thecal sac at L2-L4 is seen on sagittal image #9. This naomi sures 4.7 x 1.1 x 2.6 cm and is typical for a seroma. There is no significant associated mass effect. There is fatty atrophy of the paraspinous musculature, with nonspecific edema within the paraspinous musculature bilaterally, right greater than left. IMPRESSION: 1. There is broad-based posterior disc bulge at L1-L2 with a superiorly extruded and possibly sequest ered fragment eccentric to the left. This likely impinges in the transiting left-sided nerve roots. 2. Multilevel spondylotic and postsurgical change at additional levels as above. See discussion for d etailed level by level analysis. 3. A fluid collection posterior to the thecal sac at the operative levels likely represents a seroma. The sterility of this fluid cannot be assessed by imaging and clinical correlation will be required. 4. There is nonspecific edema within the paraspinous musculature, right greater than left. Correlate clinically. 5. Degenerative disc disease as above with significant endplate edema at L1-L2. Dictated: 10/09/2023 1:44 PM Transcribed: 10/09/2023 2:08 PM Trevin [id number] LEANNA_Zechariah [id number] Electronically signed by: Driss Stanley M.D. 10/09/2023 4:01 PM
[2023-10-09] MEDS ORDERED: NovoLIN-N (NPH) PER UNIT CHARGE SQ ONE (17:00)
--- OUTSIDE RECORDS SUMMARY | 2023-10-11 00:12 | External Medical Summary | Continuity of Care Document ---
Author Name Unknown Organization [facility] [address] [id number] Care Team Providers Care Maternity Nurse Name Role Phone JasvirclaudetteMillie tierney Delaney Primary Care Physician [phone] [id number]s): 09/25/23 - 09/25/23 [facility] [address] [phone] Encounter Diagnosis Inflamed seborrheic keratosis(Discharge Diagnosis) - 09/25/23 Discharge Disposition: Home or Self Care Attending Physician: MD Dawn Thomas A Referring Physician: MD Dawn Thomas A Allergies, Adverse Reactions, Alerts Substance Reaction Severity Status sulfa drugs itchy Active Levaquin itchy and hive Active Actos itchy Active Allergy Not found in Search 1 itchy and burning eyes Active 1"eye drop" unsure of name or dose of medication, "made my eyes itchy and burn" Assessment and Plan Extracted from: Title:Clinical Document Author:MD López, Jenniffer Fragoso Date:09/25/23 OUTPATIENT NOTE Name: AGUSTINA ROBLEDO Patient Number:1 [id number] : 1945 Date of Service: 09/25/2023 _ Agustina Robledo returns for reevaluation. She notes keratotic papules on the dorsum of the right hand, right extensor forearm, and right ayala which have been irritating. All 3 lesions were treated with cryotherapy as inflamed seborrheic keratoses with patient consent. Side effects were discussed. Review of systems medications allergies as noted on the chart. The patient is in stable health, but awaiting another surgical procedure on her back. She is having some trouble controlling her right leg. Examination reveals pleasant well-nourished white female with type II skin is alert and oriented x3 with normal mood and affect. Examination of the head, neck, arms, and legs reveals the findings noted above, numerous lentigines and thin seborrheic keratoses in sun exposed areas and is otherwise unremarkable. The patient will return in 6 months for reevaluation as per her preference. Medications albuterol 0.083% for nebulization Start: 09/13/21 9:30:00 EDT, 3 mL, inhaled, q6h, as needed, PRN: as needed for wheezing Start Date: 09/13/21 Status: Ordered ALPRAZolam 0.25 mg oral tablet TAKE 1 TABLET BY MOUTH 2 TIMES A DAY NEEDED FOR ANXIETY Start Date: 09/26/22 Status: Ordered amoxicillin 500 mg oral tablet Start: 06/08/14 7:59:00, 1 tab, PO, tid, 2 cap 1 hour before procedures and 1 cap 6 hours after procedures Start Date: 06/08/14 Status: Ordered aspirin 81 mg oral delayed release tablet Start: 09/25/22 8:45:00 EDT, 1 tab, PO, Daily Start Date: 09/25/22 Status: Ordered atorvastatin 80 mg oral tablet Start: 05/27/13 9:03:00, 1 tab, PO, qhs Start Date: 05/27/13 Status: Ordered Azelastine Hydrochloride Nasal Start: 11/16/10 13:12:07, Refills: 0, as needed, PRN: Congestion, current medication from another provider Start Date: 11/16/10 Status: Ordered betamethasone dipropionate 0.05% topical cream Start: 03/15/21 11:17:00 EDT, 1 appl, topical, bid, Disp# 50 g, Refills: 2, apply to lesions on trunk and extremities until clear, Pharmacy: [email or web address] Start Date: 03/15/21 Status: Ordered busPIRone 5 mg oral tablet take 1 tablet by mouth three times a day Start Date: 09/26/22 Status: Ordered cloNIDine Start: 03/04/16 9:58:00 EDT, 0.1 mg =, PO, bid Start Date: 03/04/16 Status: Ordered cyclobenzaprine 10 mg oral tablet Start: 03/12/18 9:24:00 EDT, 1 tab, PO, tid, PRN: as needed for spasm Start Date: 03/12/18 Status: Ordered Dexilant 60 mg oral delayed release capsule Start: 03/16/13 10:03:00, 1 cap, PO, Daily Start Date: 03/16/13 Status: Ordered dilTIAZem 420 mg/24 hours oral capsule, extended release Start: 03/12/18 9:22:00 EDT, 1 cap, PO, Daily Start Date: 03/12/18 Status: Ordered doxepin 75 mg oral capsule Start: 06/08/14 8:03:00, 1 cap, PO, qhs Start Date: 06/08/14 Status: Ordered ezetimibe 10 mg oral tablet Start: 09/25/23 12:58:00 EDT, 90 tab Start Date: 09/25/23 Status: Ordered famotidine 40 mg oral tablet take 1 tablet by mouth at bedtime Start Date: 08/29/20 Status: Ordered fluticasone-salmeterol Diskus 500 mcg-50 mcg Start: 11/16/10 13:19:53, 1 puff, inhaled, bid, Refills: 0, current medication from another provider Start Date: 11/16/10 Status: Ordered HumuLIN R KwikPen (Concentrated) human recombinant 500 units/mL subcutaneous solution Start: 03/07/17 10:15:00 EDT, See Instructions, 85 units at Breakfast and Lunch 65 units at Dinner Start Date: 03/07/17 Status: Ordered hydroCHLOROthiazide Start: 09/10/18 9:36:00 EDT, 25 mg =, PO, Daily Start Date: 09/10/18 Status: Ordered ipratropium 21 mcg/inh (0.03%) nasal spray Start: 01/22/22 13:04:00 EST, 2 spray, each nostril, bid, PRN: as needed for allergy symptoms Start Date: 01/22/22 Status: Ordered lamoTRIgine 100 mg oral tablet Start: 03/12/18 9:18:00 EDT, 0.5 tab, PO, bid Start Date: 03/12/18 Status: Ordered losartan 25 mg oral tablet Start: 09/26/22 10:39:00 EDT, 1 tab, PO, Daily Start Date: 10/27/22 Status: Ordered metFORMIN 500 mg oral tablet, extended release Start: 03/12/18 9:28:00 EDT, 1 tab, PO, bid Start Date: 03/12/18 Status: Ordered metoprolol succinate 200 mg oral tablet, extended release Start: 03/07/17 10:16:00 EDT, 1 tab, PO, Daily Start Date: 03/07/17 Status: Ordered montelukast 10 mg oral tablet Start: 04/11/16 10:41:00, 1 tab, PO, qPM Start Date: 04/11/16 Status: Ordered Motegrity 2 mg oral tablet Start: 05/25/19 13:01:00 EDT, 1 tab, PO, Daily Start Date: 05/25/19 Status: Ordered Mucinex 600 mg oral tablet, extended release Start: 03/12/18 9:20:00 EDT, 1 tab, PO, q12h, PRN: congestion Start Date: 03/12/18 Status: Ordered multivitamin Start: 11/16/10 13:23:42, one tab/dose unknown, PO, Daily, Refills: 0, current medication from another provider Start Date: 11/16/10 Status: Ordered Nasonex 50 mcg/inh nasal spray Start: 06/08/14 8:09:00, 2 spray, each nostril, bid, PRN: as needed for allergy symptoms Start Date: 06/08/14 Status: Ordered ondansetron 4 mg oral tablet Start: 06/08/14 8:10:00, 1 tab, PO, q8h, PRN: as needed for nausea/vomiting Start Date: 06/08/14 Status: Ordered Plavix 75 mg oral tablet Start: 03/25/19 9:56:00 EDT, 1 tab, PO, Daily Start Date: 03/25/19 Status: Ordered spironolactone Start: 09/10/18 9:37:00 EDT, 50 mg =, PO, Daily Start Date: 09/10/18 Status: Ordered Ventolin HFA 90 mcg/inh inhalation aerosol Start: 03/12/18 9:24:00 EDT, 2 puff, inhaled, qid, PRN: as needed for wheezing Start Date: 03/12/18 Status: Ordered Vitamin B12 Start: 03/12/18 9:21:00 EDT, 1,000 mcg =, PO, Daily Start Date: 03/12/18 Status: Ordered Vitamin D3 1000 intl units oral tablet Start: 06/08/14 8:12:00, 1 tab, PO, Daily Start Date: 06/08/14 Status: Ordered Problem List Condition Confirmation Course Effective Dates Status H ealth Status Informant Capsulitis, adhesive shoulder Confirmed Active Breast cancer Confirmed Active Breast cancer Confirmed Active Carotid artery stenosis Confirmed Active Acute CVA (cerebrovascular accident) 1 Confirmed Active DDD (degenerative disc disease), lumbar Confirmed Active Diabetes mellitus Confirmed Active Diabetic neuropathy Confirmed Active Shoulder arthritis Confirmed Active Family history of malignant melanoma 2 Confirmed Active H/O: artificial joint Confirmed Active High cholesterol Confirmed Active Hip pain, bilateral Confirmed Active S/p carotid endarterectomy Confirmed Active HTN (hypertension) Confirmed Active Impingement syndrome of right shoulder Confirmed 02/02/03 Active Joint pain Confirmed Active Knee pain, left Confirmed Active Knee pain 3 Confirmed Active Left wrist pain Confirmed Active Degenerative joint disease of shoulder region Confirmed Active Primary osteoarthritis of left knee Confirmed Active Pain Confirmed Active Left leg pain Confirmed Active Pes anserinus bursitis of left knee Confirmed Active Prophylactic antibiotic therapy Confirmed Active Right wrist pain Confirmed Active Right shoulder pain Confirmed Active Skin lesion Confirmed Active Tibialis posterior tendinitis Confirmed Active Trigger finger 4 Confirmed 02/02/03 Active Bursitis, trochanteric Confirmed Active Weight disorder Confirmed Active 1states mini strokes, several Dec 2018, January 2019. 2brother 3B/L 4index finger Diagnosis Diagnosis Type Effective Dates Health Status Clinical Service Informant Inflamed seborrheic keratosis Discharge Diagnosis 09/25/23 Procedures Procedure Date Related Diagnosis Body Site Status Surgery 05/2022 Completed Shave biopsy of skin 01/22/22 Comp leted Implantable cardiac pacemaker 03/2021 Completed Shave biopsy and cauterisati on of skin 1 11/02/19 Completed Surgery 2 07/2017 Completed Injection of steroid 2015 Comp leted Cataract 3 2014 Completed Excision biopsy 11/30/14 Completed CEA - Carotid endarterectomy Right 06/27/14 Completed neck surgery 4 04/28/13 Completed Right Knee Arthroplasty 05/05/12 C ompleted Abdominoplasty 2010 Completed Breast augmentation 2010 Compl eted Mastectomy 5 11/03/10 Completed Neck 06/01/10 Completed Right knee 07/17/09 Completed Carpal tunnel release 6 03/29/08 C ompleted Fusion 7 03/29/08 Completed Scope AND/OR camera 8 05/31/03 Com pleted Right hand 2002 Completed Back Completed Bladder Completed gall bladder 9 Completed Hysterectomy Completed Neck Completed Shoulder Completed Wrist Completed 1left medial achilles/malleolar area 2back surgery 3rt and left eye 4plate insertion cervical 5B/L 6Left 7Left Wrist 8Right shoulder 9removal dec 2014 Social History Social History Type Response Smoking Status Never smoked cigaret kishor Sex Female Outpatient Note * MD López, Emilio Fragoso: PERFORM Event Display: .Outpt Note Authored Date: [id number] OUTPATIENT NOTE Name: AGUSTINA ROBLEDO Patient Number:1 [id number] : 1945 Date of Service: 09/25/2023 _ Agustina Robledo returns for reevaluation. She notes keratotic papules on the dorsum of the right hand, right extensor forearm, and right ayala which have been irritating. All 3 lesions were treated with cryotherapy as inflamed seborrheic keratoses with patient consent. Side effects were discussed. Review of systems medications allergies as noted on the chart. The patient is in stable health, butawaiting another surgical procedure on her back. She is having some trouble controlling her right leg. Examination reveals pleasant well-nourished white female with type II skin is alert and oriented x3with normal mood and affect. Examination of the head, neck, arms, and legs reveals the findings noted above, numerous lentigines and thin seborrheic keratoses in sun exposed areas and is otherwise unremarkable. The patient will return in 6 months for reevaluation as per her preference. Electronic Signature on File Electronically Reviewed/Signed by: Emilio Dawn MD Author Signature Dt/Tm:09/25/2023 01:17 PM Department of Dermatology [facility] Patient Care team information Care Team Personnel Name: MARILY Ordonez Tara Position: Nurse Pract - Family Med Member Role: Lifetime Relationship Address: Address: [address] [place] [id number] [place] Name: MD Edwards Jenna Lynn Position: Referring Member Role: Primary Care Provider Address: Address: [facility] [address] [address] [place] Name: MD Alas Christopher E Position: Referring DIRECT Member Role: Lifetime Relationship Address: [address] [address] [facility] [address] [place] Name: ALEKSEY Villarreal Lynn Position: Physician Ethnographer Exempt - Vasc Surg Member Role: Lifetime Relationship Address: Address: [address] [place] [address] Care Team Related Persons Name: LAVERNE ROBLEDO Address: home [address] [place] [address] [place] [phone]
--- OUTSIDE RECORDS SUMMARY | 2023-10-11 00:13 | External Medical Summary | Summary of Care ---
Author Name Unknown Organization [facility] Address [address] [facility] [address] Phone [phone] Care Team Providers Care Car Dryer Name Role Phone Millie Edwards MD Primary Care Provide r Reason for Visit * Reason Onset Date Comments Test Results 08/11/2023 Encounter Details Date Type Department Care Team Description [facility] [place] [address] Nancy Haile PA-C [address] [facility] [place] [id number] Test Results Allergies Active Allergy Reactions Severity Noted Date Comments Levofloxacin 05/31/2020 Ofloxacin 05/31/2020 Pioglitazone 03/03/2007 Sulfa Antibiotics 03/03/2007 documented as of this encounter (statuses as of 08/17/2023) Medications Medication Sig Dispensed Refills Start Date End Date Status TOPAMAX 50 MG PO TABS 2 tab daily 0 0 01/30/2006 Active SENOKOT 8.6 MG PO TABSIndications:Follo w-up examination, following other surgery one po bid 30 0 02/19/2006 Active LIPITOR 40 MG PO TABS one tab by mouth daily 0 Active CARDIZEM CD 240 MG PO CP24 1 tab po daily 0 08/26/2007 Active MUCINEX 600 MG PO [id number]:Cough ,Chronic rhinitis one pill twice a day 60 6 10/08/2007 Active RANITIDINE HCL 300 MG PO TABSIndications:Esoph ageal reflux one pill twice a day 60 3 10/08/2007 Active ATROVENT 0.03 % NA SOLNIndications:Chron ic rhinitis 2 squirts TID 1 6 06/02/2008 Active CLONAZEPAM 0.5 MG PO TABS One twice a day 0 Active TRIAMTERENE-HCTZ 37.5-25 MG PO CAPS One each day 0 Acti ve ASTELIN 137 MCG/SPRAY NA SOLNIndications:Chron ic rhinitis 2 squirts each nostril twice daily 1 6 01/06/2009 Active NASONEX 50 MCG/ACT NA SUSPIndications:Chron ic rhinitis 2 squirts each nostril twice daily 2 6 01/06/2009 Active ADVAIR DISKUS 500-50 MCG/DOSE IN MISCIndications:Cough ,Asthma, cough variant 1 puff BID 1 03/31/2009 Active ALBUTEROL SULFATE HFA 108 (90 BASE) MCG/ACT IN AERSIndications:Cough ,Asthma, cough variant 2 puffs every 4 hrs. as needed for cough, wheeze, chest tightness or shortness of breath and prior exercise 1 6 03/31/2009 Active HYDROXYZINE HCL 25 MG PO TABS One - two every 6-8 hours as needed 0 Active ASPIRIN 81 MG PO TABS One each day 0 A ctive AMOXICILLIN 500 MG PO CAPS 2 capsules prior to procedure and 1 capsule 6 hours after procedure 0 Active COLACE 100 MG PO CAPS one pill each day as needed 0 Active DEXILANT 60 MG PO CPDR one pill each day 0 Active DOXEPIN HCL 25 MG PO CAPS one pill each day at bedtime 0 Active HUMALOG KWIKPEN 100 UNIT/ML SUBQ SOLN 20-25 unit daily 0 A ctive HUMULIN N PEN 100 UNIT/ML SUBQ SUSP 70 units at bedtime 0 Active LOSARTAN POTASSIUM-HCTZ 100-25 MG PO TABS one pill each day 0 Active METFORMIN HCL ER (OSM) 1000 MG PO TB24 one pill twice a day 0 Active MULTIPLE VITAMIN PO CAPS one pill each day 0 Active ONDANSETRON HCL 4 MG PO TABS 1 tablet every 8 hours as needed 0 Active VITAMIN D 1000 UNITS PO TABS one pill each day 0 Active lamoTRIgine (LAMICTAL) 100 MG Tablet Take 1 Tablet by mouth in the morning. 0 Active Escitalopram Oxalate 10 MG Oral Tablet Take 1 Tablet by mouth in the morning. 0 Active clopidogrel (PLAVIX) 75 MG Tablet Take 1 Tablet by mouth in the morning. 0 Active DULoxetine (CYMBALTA) 30 MG CPEP Take 1 Capsule by mouth in the morning. 0 Active gabapentin (NEURONTIN) 100 MG Capsule Take 1 Capsule by mouth in the morning and 1 Capsule at noon and 1 Capsule before bedtime. 0 Active Metoprolol Succinate ER 200 MG TB24 Take 1 Tablet by mouth in the morning. 0 Active Insulin NPH Isophane & Regular (70-30) 100 UNIT/ML Suspension Pen-injector Inject under the skin. 0 Active dilTIAZem HCl ER Beads 420 MG CP24 Take by mouth. 0 Act kayce hydroCHLOROthiazide (HYDRODIURIL) 25 MG Tablet Take 1 Tablet by mouth in the morning. 0 Active spironolactone (ALDACTONE) 50 MG Tablet Take 1 Tablet by mouth in the morning. 0 Active levalbuterol (XOPENEX) 0.63 MG/3ML nebulizer solution Inhale 3 mL via nebulizer every 4 hours as needed for Wheezing. 0 Active cefuroxime (CEFTIN) 500 MG Tablet Take 1 Tablet by mouth in the morning and 1 Tablet before bedtime. 0 Active ALPRAZolam (XANAX) 0.25 MG Tablet Take 1 Tablet by mouth at bedtime as needed for Anxiety. 0 Active montelukast (SINGULAIR) 10 MG Tablet Take 1 Tablet by mouth at bedtime. 0 Active Prucalopride Succinate 2 MG TABS Take by mouth. 0 A ctive Polyethylene Glycol 3350 17 GM/SCOOP Oral Powder Take 17 g by mouth in the morning. 0 Active documented as of this encounter (statuses as of 08/17/2023) Active Problems Problem Noted Date DYSLIPIDEMIA, GOAL LDL BELOW 100 009 Overview: Per Lipid Taxonomy. HTN, GOAL BELOW 130/80 10/24/2009 Overview: Modified per HTN protocol #16. Type 2 diabetes mellitus with hemoglobin A1c goal of less than 7.0% 09/14/2009 Overview: Modified per Diabetes protocol #14. 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 COUGH, CHRONIC 08/26/2007 Overview: Since March, NONALLERGIC RHINITIS 08/26/2007 Postmenopausal atrophic vaginitis 2004 FEM STRESS INCONTINENCE 04/09/2005 Urgency of urination 04/09/2005 Urge incontinence 04/09/2005 Urinary incontinence 04/09/2005 Overview: ICD-10 update of inactive term Cystocele, midline 04/09/2005 Other prolapse of vaginal montes without mention of uterine prolapse 04/09/2005 Dyspareunia 04/09/2005 Incomplete bladder emptying 04/09/2005 Major depressive disorder Overview: ICD-10 update of inactive term Esophageal reflux documented as of this encounter (statuses as of 08/17/2023) Resolved Problems Problem Noted Date Resolved Date HTN, goal to be determined 10/24 Overview: Modified per HTN protocol #16. DM type 2, not at goal 9 Overview: Modified per Diabetes protocol #14. Dyslipidemia, goal to be determined 11/13/2009 Overview: Per Lipid Taxonomy. documented as of this encounter (statuses as of 08/17/2023) Social History Tobacco Use Types Packs/Day Years Used Date Smoking Tobacco: Never Cigarettes 0.3 3 Smokeless Tobacco: Never Comments:quit age 21; no pas sive smoke exposures Alcohol Use Standard Drinks/Week Comments Yes 0 (1 standard drink = 0.6 oz pur e alcohol) 1-2 drinks/week Sex Assigned at Date Recorded Not on file Job Start Date Occupation Industry Not on file Not on file Not on file documented as of this encounter Miscellaneous Notes * Telephone Encounter - Ayesha Haider LPN - 08/11/2023 5:29 PM EDT I identified pt by name and , verified by patient. Pt has been informed of below message and verbalized understanding. * Telephone Encounter - Nancy Haile PA-C - 08/11/2023 1:56 PM EDT Patient goes by alyssa Please call CT neg for intracranial abnormality. No obvious brain bleed. To follow up with PCP for persistent symptoms. documented in this encounter Plan of Treatment Health Maintenance Due Date Last Done Comments DXA Scan 1945 HbA1c 1951 Pneumococcal Vaccine: 65+ Years (1 - PCV) 1951 Depression Screening 1957 Albumin/Creatinine Ratio 1963 Diabetic Foot Exam 1963 Hepatitis C Screening 1963 DTaP,Tdap,and Td Vaccines (1 - Tdap) 1964 Zoster Vaccines (1 of 2) 1995 COLONOSCOPY-EVERY 3 YRS AGES 18-100 07/14/2011 07/14/2008 GFR 09/26/2011 09/26/2010, 09/01, 01/30/2006 DIABETES-EYE EXAM 10/13/2015 10/13/2014, , 10/13/2014, Additional history exists COVID-19 Vaccine (4 - Pfizer series) 12/12/2021 10/17/2021, 01/26/2021, 01/05/2021 Influenza Vaccine (FLU shot) (#1) 2023 09/14/2019 GARDASIL-HPV IMMUNIZATION SERIES Aged Out No longer eligible based on patient's age to complete this topic Hepatitis B Aged Out No longer eligi ble based on patient's age to complete this topic MENINGOCOCCAL (MENACTRA/MENVEO) Aged Out No longer eligible based on patient's age to complete this topic documented as of this encounter Medical Devices Not on filedocumented as of this encounter Care Teams Car Dryer Relationship Specialty Start Date End Date Millie Edwards MD [address] [place] [address] PCP - General Internal Medicine 07/30/23 documented as of this encounter
--- OUTSIDE RECORDS SUMMARY | 2023-10-11 00:13 | External Medical Summary | Summary of Care ---
Author Name Unknown Organization [facility] Address [address] [facility] [place] [address] Phone [phone] Care Team Providers Care Gas Controller Name Role Phone Millie Edwards MD Primary Care Provide r Reason for Visit * Reason Onset Date Comments Follow Up 08/22/2023 Encounter Details Date Type Department Care Team Description 08/22/2023 Telephone [facility], [facility] [address] [place] [address] [address] Marck Pichardo, [address] [place] [address] Follow Up Allergies Active Allergy Reactions Severity Noted Date Comments Levofloxacin 05/31/2020 Ofloxacin 05/31/2020 Pioglitazone 03/03/2007 Sulfa Antibiotics 03/03/2007 documented as of this encounter (statuses as of 08/25/2023) Medications Medication Sig Dispensed Refills Start Date [...] 0 08/26/2007 Active MUCINEX 600 MG PO [id number]:Cough ,Chronic rhinitis one pill twice a day [...] ,Asthma, cough variant 1 puff BID 1 6 03/31/2009 Active ALBUTEROL SULFATE HFA 108 (90 [...] as of this encounter (statuses as of 08/25/2023) Active Problems Problem Noted Date DYSLIPIDEMIA, GOAL [...] as of this encounter (statuses as of 08/25/2023) Resolved Problems Problem Noted Date Resolved Date HTN, goal to be determined 10/24 Overview: Modified per HTN protocol #16. DM type 2, not at goal 9 Overview: Modified per Diabetes protocol #14. Dyslipidemia, goal to be determined 11/13/2009 Overview: Per Lipid Taxonomy. documented as of this encounter (statuses as of 08/25/2023) Social History Tobacco Use Types Packs/Day Years [...] encounter Miscellaneous Notes * Telephone Encounter - Nereida Holder LPN - 08/25/2023 2:18 PM EDT Pt aware. * Telephone Encounter - Marck Beard DO - 08/25/2023 11:34 AM EDT The SI joint injection was done as requested by Dr. Hardy. She can be seen in the office if she wishes. * Telephone Encounter - Nereida Holder LPN - 08/22/2023 2:25 PM EDT Patient reports no improvement after injection, states pain is currently worse. R low back, buttockand thigh. Walking hunched over. documented in this encounter Plan of Treatment Upcoming Encounters Date Type Specialty Care Team Description 08/26/2023 Office Visit Pain Medicine Marck Beard DO [address] [place] [address] Health Maintenance Due Date Last Done Comments [...] filedocumented as of this encounter Care Teams Gas Controller Relationship Specialty Start Date End Date Millie Edwards MD [address] [place] [address] PCP - General Internal Medicine 07/30/23 documented as of this encounter
--- NOTE | 2023-10-11 21:32 | Discharge Summary ---
Date of Service October 09, 2023 Admission HPI Per Admitting Provider Dinorah Robledo (Penny) is a 78 year old female who presents to the ER with chest pain. History was taken in an emergent manor given concern for need for urgent cardiac catheterization, echo currently being performed when seen and med rec not performed. Initial pain started on Friday while she was just sitting, under left breast and lasted for 2 hours. Pain occurring intermittently since then. Unsure if exertional as she doesn't really exert herself. Not positional. Last night associated with diaphoresis. Today her pain started at 6:30am and has been constant even after aspirin and nitroglycerin given by EMS. Severity 8 - constant. No prior known cardiac disease but she has had prior history of strokes. She took all her morning medications except her inhalers and metoprolol. Principal Diagnosis Non-ST elevation WI status postcardiac cath status post stent placement Discharge Data Allergies Allergy/AdvReac Type Severity Reaction Status Date / Time buspirone Allergy Intermediate itchy all Verified 10/01/23 10:52 over and heart palpitaitons with tachycardia levofloxacin Allergy Unknown ITCHY HIVES Verified 10/01/23 10:52 ofloxacin Allergy Unknown RASH Verified 10/01/23 10:52 pioglitazone Allergy Unknown ITCHING Verified 10/01/23 10:52 Sulfa (Sulfonamide Allergy Unknown itchy Verified 10/01/23 10:52 Antibiotics) KNEE GEL SHOT Allergy Unknown SWELLING Uncoded 10/01/23 10:52 AND BRUISING Consultations 10/06/23 11:41 ED Decision to Admit Stat 10/06/23 12:47 Consult Cardiology Stat 10/06/23 13:53 Consult Visual Designer Routine 10/09/23 17:53 Consult [facility] manager water wastewater Routine Procedures Performed Operation Date: 10/08/23 09:30 Actual Procedures p Cineradiography w/Routine Exam - Latrell Javier MD p Drug Eluting Stent SGl Vessel - Latrell Javier MD s Cath, Coronaries ONLY (no LV) - Latrell Javier MD Ordered Studies 10/06/23 12:24 CL Cath Imgs for PACS use only Stat 10/08/23 09:30 CL Cath Imgs for PACS use only Routine 10/09/23 00:00 MR lumbar spine wo con Routine Diabetes Follow up Diabetes Follow-up Needed for HgbA1c >9% Hospital Course (1) Acute non-ST elevation myocardial infarction (NSTEMI): (2) Cardiogenic shock: (3) Elevated troponin I level: (4) Diabetic ketoacidosis: Plan 1) NSTEMI (non-ST elevated myocardial infarction): Plan: Cardiac cath completed Showed severe multi vessel CAD Successful PCI of mid LAD with Single KRISH Continue extended dual antiplatelet therapy beta-neeru, ARB Aggressive lipid management, start rosuvastatin, continue Zetia Consult cardiac Rehab (2) Diabetic ketoacidosis: Plan: The patient presented as per diabetic ketoacidosis, patient started insulin drip, anion gap closed. resumed SS insulin and glargine (3) Depression with anxiety: Plan: Continue duloxetine Hold doxepin - increased risk of arrythmias (4) Gastroesophageal reflux disease: Plan: Continue PPI (5) Intrinsic asthma: Plan: No current exacerbation suspected based on exam Continue her routine inhalers, did not yet take this morning. (6) Back pain, going for MRI of the LS spine showed evidence of broad-based disc herniation, patient advised to follow-up with Dr. Hardy. Total Time Total Time Spent Total Time Spent (In Minutes): 45 minutes Discharge Plan Discharge Items Patient Disposition: Home - Self-Care Reason For Visit: NSTEMI Discharge Diagnosis: NSEMI , Disc Herniation Activity: Resume your previous activity Bathing: No limitations Non-emergency contact: Primary Care Provider and Airline Security Representative Call non-emergency contact if: you have any medication questions Follow-up/Referrals: Millie Edwards MD [Primary Care Provider] - Diet: Carb Consistent or DM2 and Heart Healthy Addtl Attending Provider Instructions: You blood pressure is running low , but you have no symptoms when you ambulate. Please check your blood pressure on a daily basis , at the same time , collect it in a log book and call your broom machine operator , if you need to continue Metoprolol . Your MRI showed Disc Herniation please follow with your Surgeon Addtl Heater Operator Helper Provider Instructions: Here is a list of additional private duty caregivers: [facility] [phone] [facility], [facility]. [phone] [facility] [phone] [facility] [phone] [facility] [phone] [facility] [phone] [facility] [phone] [facility] (non-nursing care) [phone] [facility] [phone] [employer] [phone] [facility] [phone] [facility] [phone] Pending Studies at Discharge: No Stand-Alone Forms: My [facility], Smoking Cessation Medications and DC Order Prescriptions: New aspirin 81 mg Tablet,Delayed Release (Dr/Ec) 81 mg PO QAM Qty: 90 0RF metoprolol tartrate 25 mg Tablet 12.5 mg PO BID Qty: 90 0RF Jardiance 10 mg tablet 10 mg PO DAILY Qty: 90 0RF Continued levalbuterol HCl 0.63 mg/3 mL solution for nebulization 0.63 mg INH TID PRN (Reason: shortness of breath or wheezing) Qty: 360 5RF albuterol sulfate [Ventolin HFA] 90 mcg/actuation HFA aerosol inhaler See Rx Instructions .ROUTE .COMPLEX Qty: 54 2RF Dose Instruction: USE 2 INHALATIONS EVERY 4 HOURS NEEDED FOR SHORTNESS OF BREATH OR WHEEZING Rx Instructions: USE 2 INHALATIONS EVERY 4 HOURS NEEDED FOR SHORTNESS OF BREATH OR WHEEZING [id number] 50-325-40 mg capsule 1 cap PO Q4H PRN (Reason: pain) Qty: 1 0RF ondansetron 4 mg tablet,disintegrating 4 mg PO Q8H PRN (Reason: Nausea And Vomiting) Qty: 120 3RF (DME) pen needle, diabetic [BD Ultra-Fine Mini Pen Needle] 31 gauge x 3/16" needle See Dose Instructions .ROUTE .MEDSUPPLY Qty: 300 1RF Rx Instructions: Use to inject insulin three times daily or as directed (DME) blood-glucose meter Kit See Rx Instructions miscellaneous .MEDSUPPLY Qty: 1 0RF Rx Instructions: As directed to check blood sugars daily. OneTouch ultra alprazolam 0.25 mg tablet 0.25 mg PO BID PRN (Reason: anxiety) Qty: 60 0RF Rx Instructions: takes 3-4 times/week clopidogrel 75 mg tablet 75 mg PO DAILY Qty: 90 3RF dexlansoprazole [Dexilant] 60 mg capsule,biphase delayed releas 60 mg PO QAM Qty: 90 3RF atorvastatin 80 mg tablet 80 mg PO QPM Qty: 90 3RF Motegrity 2 mg tablet See Rx Instructions .ROUTE .COMPLEX Qty: 90 3RF Dose Instruction: TAKE 1 TABLET EVERY MORNING Rx Instructions: TAKE 1 TABLET EVERY MORNING multivitamin [Multiple Vitamins] tablet 1 tab PO QAM cholecalciferol (vitamin D3) 25 mcg (1,000 unit) tablet 2,000 unit PO QAM Hold Instructions: for 12wk (DME) lancets [[employer] NanoTools Lancets] 33 gauge misc See Rx Instructions .ROUTE .MEDSUPPLY Qty: 100 Rx Instructions: Test blood sugar three times daily (DME) inhaler,assist devices,access Device See Rx Instructions .MEDSUPPLY Qty: 1 0RF Rx Instructions: spacer for HFA inhlaer, use as directed cyanocobalamin (vitamin B-12) 1,000 mcg tablet 1,000 mcg PO QAM chlorpheniramine maleate 4 mg tablet 4 mg PO UD PRN (Reason: cough) Rx Instructions: do not exceed 2 doses per 24 hrs (DME) FreeStyle Radha 2 Sensor Kit See Rx Instructions .Route Qty: 6 3RF Rx Instructions: Change sensor every 14 days duloxetine 30 mg capsule,delayed release(DR/EC) 30 mg PO QAM Qty: 90 3RF (DME) FreeStyle Radha 2 Kaufman Misc See Rx Instructions .ROUTE .MEDSUPPLY Qty: 1 0RF Rx Instructions: As directed (DME) OneTouch Ultra Test Strip See Rx Instructions .Route Rx Instructions: test 3 times daily Advair HFA 230-21 mcg/actuation HFA aerosol inhaler 2 inh inhalation BID 90 Days Qty: 3 3RF (DME) blood glucose control, normal [OneTouch Ultra Control] Solution See Rx Instructions .Route Qty: 1 0RF Rx Instructions: As directed for calibration ipratropium bromide 21 mcg (0.03 %) spray,non-aerosol 2 spray intranasal BID PRN (Reason: Congestion) Rx Instructions: administer into each nostril polyethylene glycol 3350 [Miralax] 17 gram/dose Powder 17 g PO QAM Spiriva Respimat 2.5 mcg/actuation mist 2 puffs INH QAM ezetimibe [Zetia] 10 mg tablet 10 mg PO HS Humulin R U-500 (Conc) Kwikpen 500 unit/mL (3 mL) insulin pen 60 unit SQ BID mometasone 50 mcg/actuation spray,non-aerosol 2 spray intranasal UD PRN (Reason: Nasal Congestion) Discontinued metoprolol succinate 200 mg tablet extended release 24 hr 200 mg PO QAM Qty: 90 3RF Rx Instructions: TAKE 1 TABLET DAILY spironolactone 50 mg tablet 50 mg PO QAM Qty: 90 3RF Hold Instructions: low sodium olmesartan 5 mg tablet 5 mg PO DAILY Qty: 90 3RF diltiazem HCl 420 mg capsule,extended release 24hr 420 mg PO QAM Qty: 180 3RF valacyclovir 500 mg tablet 500 mg PO UD PRN (Reason: genital herpes) Qty: 10 3RF chlorpheniramine maleate 4 mg tablet 4 mg PO Q12H PRN (Reason: cough) Qty: 60 6RF Rx Instructions: do not exceed 2 doses per 24 hrs metformin 500 mg tablet extended release 24 hr 500 mg PO BID Qty: 180 1RF amoxicillin 500 mg capsule 2,000 mg PO UD PRN (Reason: 1 hr prior to dental appt) doxepin 25 mg capsule 25 mg PO HS Discharge Orders: Discharge Order (Routine); Ordered 10/09/23 Ordered By: Gary Hernandez/Other Patient Handouts: Cardiac Catheterization Dc Admission Data Admit Date/Time: 10/06/23 12:47 Attending Provider: Gary Ribera Admit Provider: Abdiel Padron Primary Care Provider: Millie Edwards Other Providers: [place]; Abdiel Padron; Latrell Javier; Brian García Other Interventions: Discharge Summary Assessment (RN) Last Done: 10/09/23 17:52 Coding Level of Care Code 47939 INP/OBS DISCH >30 MIN Diagnoses Acute non-ST elevation myocardial infarction (NSTEMI) I21.4 Cardiogenic shock R57.0 Elevated troponin I level R79.89 Diabetic ketoacidosis E11.10
== END 2023-10-09 18:18 | disposition home or self-care (01) | DRG 321 ==
LOC: ED 10:01 → 1E 12:30 → OR 12:30 → SUATTDRO 12:47 → 1E 12:47 → 4W 10-07 18:48
PROC: CLB.CCO (2023-10-08 09:30)

== ENCOUNTER 2024-07-24 13:29 | Inpatient (IN) ==
[2024-07-24 14:28] LABS: Basophils # (auto) 0.05 K/uL (0.00-0.20); Basophils % (auto) 0.5 %; Eosinophils # (auto) 0.12 K/uL (0.00-0.50); Eosinophils % (auto) 1.3 %; Hematocrit (blood only) 40.1 % (37.0-47.0); Hemoglobin 13.2 g/dl (12.0-16.0); Immature Granulocytes # (auto) 0.04 K/uL (0.01-0.20); Immature Granulocytes % (auto) 0.4 %; Lymphocytes # (auto) 2.14 K/uL (1.20-3.40); Lymphocytes % (auto) 22.8 %; Mean Corpuscular Hemoglobin 28.6 pg (25.0-34.0); Mean Corpuscular Hgb Conc 32.9 g/dL (32.0-36.0); Mean Platelet Volume 10.6 fL (9.4-12.4); Monocytes # (auto) 0.64 K/uL (0.11-0.59); Monocytes % (auto) 6.8 %; Neutrophils # (auto) 6.41 K/uL (1.40-6.50); Neutrophils % (auto) 68.2 %; Platelet Count 277 K/uL (130-400); RDW Standard Deviation 44.5 fL (36.4-46.3); Red Blood Count 4.61 M/uL (4.20-5.40)
--- NOTE | 2024-07-24 14:28 | Emergency Department Note ---
Impression & Plan Chest pain, Non-ST elevation AK (NSTEMI), Hyperglycemia ED Provider Note HISTORY OF PRESENT ILLNESS: Patient is a 79-year-old female presenting with chest pain. Patient reports that last night while laying in bed to go to sleep, she developed substernal chest pain that radiated into her left chest. Reports that the pain was not too intense so she went to bed, but woke up this morning was still having chest pain. She describes the pain as a pressure and sharp sensation that radiates into her left chest wall. She has a history of cardiac stents, with her last 1 being placed in October 2023. She is on Brilinta and aspirin. She reports some associated shortness of breath with the chest pain. Denies any DVT or PE history. She denies any recent travel or recent surgeries. Denies any recent cough or recent sick contact exposures. Currently rates the pain a 6 out of 10. She took a nitroglycerin prehospital, but it did not improve her pain, prompting her to come to the ER. Denies any headache or changes in vision. ROS: as above PHYSICAL EXAM: Constitutional: Patient appears in no acute distress. HENT: Head: Normocephalic and atraumatic. Eyes: EOMI, PERRL Mouth/Throat: Mucous membranes moist. Neck: Trachea midline. Neck supple. Cardiovascular: Paced rhythm. No murmurs, rubs or gallops. Intact distal pulses. Pulmonary/Chest: No respiratory distress. Breath sounds clear and equal bilaterally. No wheezes or rales. Abdominal: Abdomen soft, no tenderness, rebound or guarding. Musculoskeletal: No edema, tenderness or deformity noted. Skin: Warm and dry. No rash, erythema, pallor or cyanosis Psychiatric: Appropriate mood and affect for situation. Neurological: Alert and keenly responsive. CN II-XII grossly intact, moving all extremities equally and fully. MDM: - Vitals signs stable - History obtained via patient. History as above. - Chronic conditions affecting care: HLD; CAD (s/p PCI); HFpEF; DM-2; COPD; CVA; - Differential diagnoses include, but are not limited to: Acute coronary syndrome; pulmonary embolism; dissection; tension pneumothorax; esophageal rupture; pneumonia - Order placed for continuous cardiac monitoring. At this time, monitor showed rate of 80 bpm with paced rhythm, per my interpretation. - External medical records reviewed. Cardiology visit note dated 05/14/2024 was reviewed. Patient has a complex history of CAD and ischemic cardiomyopathy. She has had numerous vessels stented - EKG interpreted by myself showed ventricular paced rhythm. Rate 81 bpm. - Patient given 243 mg PO aspirin, as she is high risk chest pain patient and had 81 mg earlier today. She was given 50 mcg of IV fentanyl for pain control on arrival. - Laboratory workup interpreted by myself showed normal WBC; slight hyponatremia (Na 133); elevated BUN (28); elevated anion gap (12); hyperglycemia (glucose 338); elevated troponin (15.9); normal lipase - CXR negative for pneumonia, per my interpretation. - CT PE negative for evidence of a PE or airspace opacity. - HEART score 6 (History +1 moderately suspicious; EKG +0; Age +2; Risk factors +2; Initial troponin +1), amounting to a moderate score. - Discussion was had with trimming caser about patient's case and need for admission - Hospitalist, Dr. Padron, consulted for admission - [facility] ASSESSMENT AND PLAN: Diagnosis: Chest pain; NSTEMI; hyperglycemia Plan: admit Past Med/Surg History Problem List (Updated 07/24/24 @ 17:20 by Sarah Morris MD) Hyperglycemia (Acute) Non-ST elevation AK (NSTEMI) (Acute) Chest pain (Acute) Osteoporosis Diagnosed based on high FRAX score Spinal stenosis of lumbar region (~01/26/24) Paresthesia of right lower extremity Adjacent segment disease of lumbar spine with history of fusion procedure Lumbar radiculopathy Lumbar post-laminectomy syndrome History of lumbar fusion S/P coronary artery stent placement Oct 2023- 5 or 6 placed CAD (coronary artery disease) HFrEF (heart failure with reduced ejection fraction) Hyponatremia SIADH (syndrome of inappropriate ADH production) Poorly controlled type 2 diabetes mellitus Hypertension Cerebrovascular disease 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, history of retinal artery occlusion Pacemaker 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 s/p [employer] [place] XT DR KELLY Dual Chamber Pacemaker 04/12/21 LAST PACEMAKER CHECK 12/2021 Chronic obstructive pulmonary disease Stable per pt Gastroparesis Mitral regurgitation (Acute) Dyslipidemia (Chronic) Gastroesophageal reflux disease Depression with anxiety Medical History Anxiety with depression Dyslipidemia Mitral regurgitation Gastroparesis COPD (chronic obstructive pulmonary disease) Cerebrovascular disease Hypertension Poorly controlled type 2 diabetes mellitus SIADH (syndrome of inappropriate ADH production) CHF (congestive heart failure) CAD (coronary artery disease) Lumbar post-laminectomy syndrome Lumbar radiculopathy Paresthesia of right lower extremity Osteoporosis Hx of myocardial infarction History of breast cancer Knee osteoarthritis History of fracture Vitamin D deficiency Chronic sinusitis with recurrent bronchitis Saline breast implant in situ Migraines Mixed conductive and sensorineural hearing loss of right ear with restricted hearing of left ear Eustachian tube dysfunction Frequent falls Chronic cough 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 Duodenal hemorrhage Complex regional pain syndrome type 1 affecting left shoulder Horners syndrome Post-traumatic stress disorder Fatty liver Carotid stenosis, asymptomatic Surgical History Hx of heart artery stent Hx of cardiac cath History of open reduction and internal fixation (ORIF) procedure Pacemaker History of carotid endarterectomy History of breast reconstruction History of colonoscopy with polypectomy History of total hysterectomy with bilateral salpingo-oophorectomy (BSO) History of bilateral tubal ligation History of trigger finger History of surgery on left wrist History of carpal tunnel release of both wrists History of fusion of lumbar spine History of fusion of cervical spine History of total right knee replacement (TKR) History of bladder suspension procedure History of esophagogastroduodenoscopy (EGD) History of cholecystectomy History of right breast biopsy History of bilateral mastectomy History of oral surgery History of bilateral cataract extraction Abdominoplasty (05/12/13) Family History Son Crohn's disease Sister Ulcerative colitis Family history of diabetes mellitus Mother Family history of diabetes mellitus Brother Family history of diabetes mellitus Other No family history of adverse response to anesthesia No family history of bleeding disorder Social History Smoking Status: Never smoker Second Hand Exposure: No; Do You Dip or Chew Tobacco: No; Hx Alcohol Use: No Hx Substance Use: No Preferred Language: Greenlandic Communication Ability: Effective Visual Impairment: No Limitations 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: No Beliefs That Will Affect Care: None marital status: Current Living Situation: Alone Current Living Situation Comment: LIVES WITH SPOUSE current occupational status: retired current occupation: Retired Feels Safe at Home: Yes Diet: diabetic during the past year weight has: decreased > 10 lbs Dental Care, Regularly: Yes Physical Activity Frequency: Daily Seatbelt Use: always Sunscreen Use: Yes Assistive Devices: Cane and Walker Allergies Allergies Allergy/AdvReac Type Severity Reaction Status Date / Time buspirone Allergy Intermediate itchy all Verified 07/09/24 10:18 over and heart palpitaitons with tachycardia levofloxacin Allergy Unknown ITCHY HIVES Verified 07/09/24 10:18 ofloxacin Allergy Unknown RASH Verified 07/09/24 10:18 pioglitazone Allergy Unknown ITCHING Verified 07/09/24 10:18 Sulfa (Sulfonamide Allergy Unknown itchy Verified 07/09/24 10:18 Antibiotics) KNEE GEL SHOT Allergy Unknown SWELLING Uncoded 07/09/24 10:18 AND BRUISING Home Meds Home Medications Medication Instructions Recorded Confirmed cyanocobalamin (vitamin B-12) 1,000 mcg PO QAM 05/13/19 07/09/24 1,000 mcg tablet multivitamin (Multiple Vitamins 1 tab PO QAM 07/01/19 07/09/24 tablet) polyethylene glycol 3350 17 17 g PO QAM 05/19/20 07/09/24 gram/dose oral powder (Miralax) blood sugar diagnostic ([email or web address] 11/20/21 07/09/24 Ultra Test strips) lancets 33 gauge ([email or web address] Delica #100 ea 09/06/22 07/09/24 Lancets) ipratropium bromide 21 mcg (0.03 2 spray intranasal BID PRN 03/03/23 07/09/24 %) nasal spray Congestion ezetimibe 10 mg tablet (Zetia) 10 mg PO HS 10/06/23 07/09/24 cholecalciferol (vitamin D3) 62.5 62.5 mcg PO DAILY 01/19/24 07/09/24 mcg (2,500 unit) capsule albuterol sulfate 90 mcg/actuation 2 inh inhalation Q4H PRN SOB 05/27/24 07/09/24 aerosol inhaler (Ventolin HFA) empagliflozin 25 mg tablet 25 mg PO DAILY Coronary Artery 05/27/24 07/09/24 Disease furosemide 20 mg tablet 20 mg PO QAM 05/27/24 07/09/24 isosorbide mononitrate 30 mg 30 mg PO QAM 05/27/24 07/09/24 tablet,extended release 24 hr metoprolol succinate 50 mg 50 mg PO QAM 05/27/24 07/09/24 tablet,extended release 24 hr prucalopride 2 mg tablet 2 mg PO QAM 05/27/24 07/09/24 (Motegrity) spironolactone 25 mg tablet 25 mg PO QAM 05/27/24 07/09/24 Previous Rx's Medication Instructions Recorded levalbuterol HCl 0.63 mg/3 mL 0.63 mg (3 mL) inhalation TID PRN 12/23/19 solution for nebulization shortness of breath or wheezing #360 mL inhaler,assist devices,access #1 ea 12/19/21 OneTouch Ultra Control (blood #1 ea 01/16/22 glucose control, normal) [id number]-[id number] 50 1 cap PO Q4H PRN pain #1 cap 07/30/22 mg-325 mg-40 mg capsule pen needle, diabetic 31 gauge x #300 ea 01/20/2302/13" (BD Ultra-Fine Mini Pen Needle) blood-glucose meter #1 ea 05/26/23 atorvastatin 80 mg tablet 80 mg PO QPM #90 tabs 09/24/23 aspirin 81 mg tablet,delayed 81 mg PO QAM #90 tabs 10/09/23 release nitroglycerin 0.4 mg sublingual 0.3 mg (0.75 x 0.4 mg) sublingual 10/22/23 tablet Q5M PRN chest pain #10 tabs magnesium oxide 400 mg PO DAILY #30 caps 10/31/23 potassium chloride 20 mEq 20 meq PO DAILY #30 tabs 10/31/23 tablet,extended release ticagrelor 90 mg tablet 90 mg PO BID #180 tabs 12/10/23 ondansetron 4 mg disintegrating 4 mg PO Q8H PRN Nausea And 12/24/23 tablet Vomiting #120 tabs blood-glucose sensor (Dexcom G7 #3 ea 01/26/24 Sensor device) methocarbamol 750 mg tablet 750 - 1,500 mg (1 - 2 x 750 mg) PO 02/10/24 TID #90 tabs duloxetine 60 mg capsule,delayed 60 mg PO QAM #90 caps 03/02/24 release gabapentin 600 mg tablet 600 mg PO TID #90 tabs 03/02/24 sacubitril 49 mg-valsartan 51 mg 1 tab PO BID #180 tabs 03/02/24 tablet (Entresto) fluticasone propionate 230 2 inh inhalation BID 90 days #3 03/16/24 mcg-salmeterol 21 mcg/actuation Inhalers HFA inhaler (Advair HFA) tiotropium bromide 2.5 2 puff inhalation QAM #3 Inhalers 03/16/24 mcg/actuation mist for inhalation (Spiriva Respimat) dexlansoprazole 60 mg 60 mg PO QAM #90 caps 04/14/24 capsule,biphase delayed release (Dexilant) famotidine 40 mg tablet 40 mg PO BID PRN heartburn #60 tabs 05/26/24 simethicone 250 mg capsule 250 mg PO BID PRN abdominal 06/23/24 (Phazyme) distention #30 caps valacyclovir 1 gram tablet 2,000 mg (2 x 1 gram) PO BID PRN 06/30/24 cold sores 1 day #4 tabs insulin regular hum U-500 conc 500 See Rx Instructions subcut 07/12/24 unit/mL(3 mL) subcut pen (Humulin .COMPLEX #36 mL R U-500 (Conc) Insulin Kwikpen) alprazolam 0.25 mg tablet 0.25 mg PO DAILY PRN anxiety #30 07/23/24 tabs Results & Data (ED) Vital Signs Vital Signs - 24 hr 07/24/24 13:30 07/24/24 13:34 07/24/24 14:11 Temperature 36.3 C L Temperature Source Temporal Artery Scan Pulse Rate 83 80 Pulse Rate from SpO2 Sensor Respiratory Rate 20 Respiratory Effort / Characteristics Non-Labored Spontaneous Respiratory Depth Normal Blood Pressure 103/67 Blood Pressure Mean 79 Pulse Oximetry 97 98 Oxygen Delivery Method Room Air Room Air Sepsis Recent Fever Within 48 Hours No Sepsis New/Unexplained Change in Mental Status N/A Sepsis Action Taken by Nursing No Action Required 07/24/24 16:13 07/24/24 16:39 Temperature Temperature Source Pulse Rate 66 66 Pulse Rate from SpO2 Sensor 66 65 Respiratory Rate 17 16 Respiratory Effort / Characteristics Respiratory Depth Blood Pressure 91/52 L 102/67 Blood Pressure Mean 58 78 Pulse Oximetry 94 97 Oxygen Delivery Method Sepsis Recent Fever Within 48 Hours Sepsis New/Unexplained Change in Mental Status Sepsis Action Taken by Nursing Laboratory Data 07/24/24 14:09 07/24/24 14:09 Lab Results 07/24/24 Range/Units 14:09 WBC 9.40 (4.8-10.8) K/ul RBC 4.61 (4.20-5.40) M/uL Hgb 13.2 (12.0-16.0) g/dl Hct 40.1 (37.0-47.0) % MCV 87.0 (80.0-100.0) fL MCH 28.6 (25.0-34.0) pg MCHC 32.9 (32.0-36.0) g/dL RDW Std Deviation 44.5 (36.4-46.3) fL RDW Coeff of Rina 14.0 (11.5-14.5) % Plt Count 277 (130-400) K/uL MPV 10.6 (9.4-12.4) fL Immature Gran % (Auto) 0.4 % Neut % (Auto) 68.2 % Lymph % (Auto) 22.8 % [place] % (Auto) 6.8 % Eos % (Auto) 1.3 % Baso % (Auto) 0.5 % Neut # (Auto) 6.41 (1.40-6.50) K/uL Lymph # (Auto) 2.14 (1.20-3.40) K/uL [place] # (Auto) 0.64 H (0.11-0.59) K/uL Eos # (Auto) 0.12 (0.00-0.50) K/uL Baso # (Auto) 0.05 (0.00-0.20) K/uL Immature Gran # (Auto) 0.04 (0.01-0.20) K/uL PT 10.0 (9.0-12.0) Seconds INR 0.9 (0.9-1.1) Sodium 133 L (136-145) mmol/L Potassium 4.1 (3.5-5.1) mmol/L Chloride 100 (98-107) mmol/L Carbon Dioxide 21 (21-32) mmol/L Anion Gap 12 H (3-11) BUN 28 H (6-23) mg/dl Creatinine 0.98 (0.6-1.2) mg/dl Est Cr Clr Drug Dosing 46.7 ml/min Est GFR ( Amer) 63.6 ml/min Est GFR (Non-Af Amer) 54.9 ml/min BUN/Creatinine Ratio 28.6 H (10-20) Glucose 338 H* (70-99(Fasting)) mg/dl Calcium 8.9 (8.6-10.3) mg/dl Total Bilirubin 0.4 (0.2-1.0) mg/dl AST 15 (13-39) U/L ALT 14 (7-52) U/L Alkaline Phosphatase 110 H (34-104) U/L Troponin I High Sens 15.9 H (0-14) pg/ml Total Protein 7.3 (6.0-8.3) gm/dl Albumin 4.4 (3.4-5.0) gm/dl Globulin 2.9 (2.5-4.0) gm/dl Albumin/Globulin Ratio 1.5 (0.9-2) Lipase 27 (11-82) U/L Administered Medications Discontinued Medications Aspirin (Aspirin Chew 324 Mg) 243 mg PO NOW STA Stop: 07/24/24 14:25 Last Admin: 07/24/24 14:30 Dose: 243 mg Documented By: DREA Fentanyl Citrate (Fentanyl Citrate Pf 100 Mcg/2 Ml Vial) 50 mcg IV NOW STA Stop: 07/24/24 14:25 Last Admin: 07/24/24 14:30 Dose: 50 mcg Documented By: DREA Ioversol (Optiray 320 125ml) 116 ml IV ONCE ONE Stop: 07/24/24 15:42 Last Admin: 07/24/24 15:44 Dose: 116 ml Documented By: GILBERT Imaging Data Radiologist's Impression: Chest X-Ray 07/24/24 13:47 SINGLE VIEW CHEST CLINICAL HISTORY: Atypical chest pain. FINDINGS: 2 AP, portable, upright chest radiographs are compared to study dated 06/01/2024. A 2-lead cardiac pacemaker is unchanged in position. The heart is enlarged noting atherosclerotic calcification of the thoracic aorta. The pulmonary vasculature is not congested. Chronic interstitial thickening is similar to previous. There is bibasilar scarring/atelectasis. No airspace consolidation or large pleural effusion is identified. No pneumothorax is seen. The skeletal structures are osteopenic. Advanced arthritic change and deformity is seen in the shoulders. Fusion hardware is noted in the lower cervical spine as well as the lumbar spine. IMPRESSION: 1. Cardiomegaly and cardiac pacemaker without radiographic evidence of congestive failure. 2. No airspace consolidation or large pleural effusion is identified. ACT 112: Negative or not required by law. Electronically signed by: Driss Stanley M.D. 07/24/2024 3:04 PM Chest CTA 07/24/24 14:24 CT ANGIOGRAM OF THE CHEST CLINICAL HISTORY: Atypical chest pain. History of breast cancer. COMPARISON STUDY: Chest x-ray dated 07/24/2024. The chest CT dated 01/05/2008. PET/CT dated 04/23/2023. MRI of lumbar spine dated 10/09/2023. TECHNIQUE: Following the IV administration of 160 cc of Optiray 320, CT angiogram of the chest was performed from the upper abdomen to the thoracic inlet utilizing the pulmonary embolus protocol. Images are reviewed in the axial, sagittal, and coronal planes. 3-D MIPS images are created and assessed. IV contrast was administered without complication. A dose lowering technique was utilized adhering to the principles of ALARA. CT DOSE: 673.19 mGy.cm FINDINGS: Thyroid: Normal in size and heterogeneous in attenuation. Thoracic aorta: There is atherosclerotic calcification of the thoracic aorta, which is normal in caliber and demonstrates standard 3-vessel arch anatomy. The thoracic aorta is not well opacified. Pulmonary vasculature: The pulmonary trunk is normal in caliber. There are no filling defects identified in main, lobar, or segmental pulmonary branches to suggest pulmonary embolus. Heart: A cardiac pacemaker is seen in the left chest wall. The heart is enlarged and without pericardial effusion. The coronary arteries are densely calcified. Lungs and pleural spaces: There is no airspace consolidation or pleural effusion. Dependent scarring/atelectasis is seen at the lung bases. A small calcified granuloma seen in the right lower lobe. The trachea and central airways are clear. Mild fibrotic change is seen at the apices. Mediastinum: There is no mediastinal lymphadenopathy. [place]: Clear. Axillae: There is no axillary lymphadenopathy. Upper abdomen: There is a xcrgm-sh-mcregcec hiatal hernia. Partially visualized upper abdominal viscera is otherwise within normal limits. Skeletal structures: The skeletal structures are osteopenic. There is a chronic compression deformity of T7 with evidence of previous vertebroplasty. There is significant sclerotic changes in the L1 vertebral body which is pathologically indeterminant, and new as compared to 04/23/2023 PET examination. There is paravertebral edema at this level. Advanced arthritic change and deformity is seen in the shoulders. Soft tissues: Bilateral breast implants are noted. IMPRESSION: 1. There is no evidence of pulmonary embolus in the main, lobar, or segmental pulmonary arteries. 2. There is no airspace consolidation or pleural effusion. 3. There is sclerotic change throughout the body of L1 with mild surrounding paravertebral edema. This is pathologically indeterminant, but new as compared to the 04/23/2023 PET examination. No additional similar appearing bony lesions are seen and this is likely on a degenerative basis. Given the history of breast cancer metastatic disease could appear similar. In the appropriate clinical setting infection would also be impossible to exclude. Clinical correlation will be essential. 4. Cardiomegaly noting advanced coronary artery atherosclerosis. 5. Additional findings as above. ACT 112: Negative or not required by law. Electronically signed by: Driss Stanley M.D. 07/24/2024 4:25 PM Discharge Plan Visit Data Chief Complaint: Chest Pain Stated Complaint: CHEST PAIN, HISTORY OF HEART ATACKS ED Provider: Sarah Morris Discharge Problem: Chest pain, Non-ST elevation AK (NSTEMI), Hyperglycemia Forms Stand Alone Forms: [facility] Categorical Prescriptions Prescriptions: No Action levalbuterol HCl 0.63 mg/3 mL solution for nebulization 0.63 mg INH TID PRN (Reason: shortness of breath or wheezing) Qty: 360 5RF fpobwcvfat-gixhpdb-qnazpgig 50-325-40 mg capsule 1 cap PO Q4H PRN (Reason: pain) Qty: 1 0RF atorvastatin 80 mg tablet 80 mg PO QPM Qty: 90 3RF magnesium oxide 400 mg magnesium capsule 400 mg PO DAILY Qty: 30 2RF potassium chloride 20 mEq tablet extended release 20 meq PO DAILY Qty: 30 2RF ticagrelor 90 mg tablet 90 mg PO BID Qty: 180 3RF Entresto 49-51 mg tablet 1 tab PO BID Qty: 180 3RF dexlansoprazole [Dexilant] 60 mg capsule,biphase delayed releas 60 mg PO QAM Qty: 90 3RF Phazyme 250 mg capsule 250 mg PO BID PRN (Reason: abdominal distention) Qty: 30 1RF Humulin R U-500 (Conc) Kwikpen 500 unit/mL (3 mL) insulin pen See Rx Instructions subcut .COMPLEX Qty: 36 3RF Rx Instructions: patient states is 70 units bid alprazolam 0.25 mg tablet 0.25 mg PO DAILY PRN (Reason: anxiety) Qty: 30 0RF multivitamin [Multiple Vitamins] tablet 1 tab PO QAM cyanocobalamin (vitamin B-12) 1,000 mcg tablet 1,000 mcg PO QAM cholecalciferol (vitamin D3) 62.5 mcg (2,500 unit) capsule 62.5 mcg PO DAILY nitroglycerin 0.4 mg tablet, sublingual 0.3 mg sublingual Q5M PRN (Reason: chest pain) Qty: 10 0RF Rx Instructions: do not exceed 3 doses per episode duloxetine 60 mg capsule,delayed release(DR/EC) 60 mg PO QAM Qty: 90 3RF gabapentin 600 mg tablet 600 mg PO TID Qty: 90 3RF Advair HFA 230-21 mcg/actuation HFA aerosol inhaler 2 inh inhalation BID 90 Days Qty: 3 3RF Spiriva Respimat 2.5 mcg/actuation mist 2 puff INH QAM Qty: 3 3RF ipratropium bromide 21 mcg (0.03 %) spray,non-aerosol 2 spray intranasal BID PRN (Reason: Congestion) Rx Instructions: administer into each nostril ondansetron 4 mg tablet,disintegrating 4 mg PO Q8H PRN (Reason: Nausea And Vomiting) Qty: 120 3RF valacyclovir 1 gram tablet 2,000 mg PO BID PRN (Reason: cold sores) 1 Days Qty: 4 3RF Rx Instructions: For cold sore famotidine 40 mg tablet 40 mg PO BID PRN (Reason: heartburn) Qty: 60 2RF polyethylene glycol 3350 [Miralax] 17 gram/dose Powder 17 g PO QAM ezetimibe [Zetia] 10 mg tablet 10 mg PO HS aspirin 81 mg Tablet,Delayed Release (Dr/Ec) 81 mg PO QAM Qty: 90 0RF metoprolol succinate 50 mg tablet extended release 24 hr 50 mg PO QAM isosorbide mononitrate 30 mg tablet extended release 24 hr 30 mg PO QAM Hold Instructions: headaches spironolactone 25 mg tablet 25 mg PO QAM furosemide 20 mg tablet 20 mg PO QAM albuterol sulfate [Ventolin HFA] 90 mcg/actuation HFA aerosol inhaler 2 inh inhalation Q4H PRN (Reason: SOB) Rx Instructions: USE 2 INHALATIONS EVERY 4 HOURS NEEDED FOR SHORTNESS OF BREATH OR WHEEZING empagliflozin 25 mg tablet 25 mg PO DAILY Motegrity 2 mg tablet 2 mg PO QAM Rx Instructions: TAKE 1 TABLET EVERY MORNING Referrals Referrals: Millie Edwards MD [Primary Care Provider] -
[2024-07-24] MEDS: fentaNYL citrate PF 100 MCG/2 ML VIAL IV STA (14:30)
[2024-07-24] MEDS: ASPIRIN CHEW 324 MG PO STA (14:30)
[2024-07-24 14:34] LABS: INR 0.9 (0.9-1.1)
[2024-07-24 14:58] LABS: Troponin I High Sensitivity 15.9 pg/ml (0-14)
[2024-07-24 15:03] LABS: Albumin Globulin Ratio 1.5 (0.9-2); Albumin Level 4.4 gm/dl (3.4-5.0); BUN Creatinine Ratio 28.6 (10-20); Bilirubin,Total 0.4 mg/dl (0.2-1.0); Calcium 8.9 mg/dl (8.6-10.3); Creatinine Clr Calc Pharmacy 46.7 ml/min; Est GFR (African American) 63.6 ml/min; Est GFR (Non-African American) 54.9 ml/min; Globulin 2.9 gm/dl (2.5-4.0); Potassium 4.1 mmol/L (3.5-5.1); Total Protein 7.3 gm/dl (6.0-8.3)
--- NOTE | 2024-07-24 15:05 | XRay Report ---
SINGLE VIEW CHEST CLINICAL HISTORY: Atypical chest pain. FINDINGS: 2 AP, portable, upright chest radiographs are compared to study dated 06/01/2024. A 2-lead ca rdiac pacemaker is unchanged in position. The heart is enlarged noting atherosclerotic calcification of the thoracic aorta. The pulmonary vasculature is not congested. Chronic interstitial thickening is similar to previous. There is bibasilar scarring/atelectasis. No airspace consolidation or large ple ural effusion is identified. No pneumothorax is seen. The skeletal structures are osteopenic. Advance d arthritic change and deformity is seen in the shoulders. Fusion hardware is noted in the lower cerv ical spine as well as the lumbar spine. IMPRESSION: 1. Cardiomegaly and cardiac pacemaker without radiographic evidence of congestive failure. 2. No airspace consolidation or large pleural effusion is identified. ACT 112: Negative or not required by law. Electronically signed by: Driss Stanley M.D. 07/24/2024 3:04 PM
[2024-07-24] MEDS: OPTIRAY 320 125ml IV ONE (15:44)
--- NOTE | 2024-07-24 16:27 | CT Scan Report ---
CT ANGIOGRAM OF THE CHEST CLINICAL HISTORY: Atypical chest pain. History of breast cancer. COMPARISON STUDY: Chest x-ray dated 07/24/2024. The chest CT dated 01/05/2008. PET/CT dated 04/23/2023. MRI of lumbar spine dated 10/09/2023. TECHNIQUE: Following the IV administration of 160 cc of Optiray 320, CT angiogram of the chest was pe rformed from the upper abdomen to the thoracic inlet utilizing the pulmonary embolus protocol. Images are reviewed in the axial, sagittal, and coronal planes. 3-D MIPS images are created and assessed. I V contrast was administered without complication. A dose lowering technique was utilized adhering to the principles of ALARA. CT DOSE: 673.19 mGy.cm FINDINGS: Thyroid: Normal in size and heterogeneous in attenuation. Thoracic aorta: There is atherosclerotic calcification of the thoracic aorta, which is normal in fraa yash and demonstrates standard 3-vessel arch anatomy. The thoracic aorta is not well opacified. Pulmonary vasculature: The pulmonary trunk is normal in caliber. There are no filling defects identif ied in main, lobar, or segmental pulmonary branches to suggest pulmonary embolus. Heart: A cardiac pacemaker is seen in the left chest wall. The heart is enlarged and without pericard ial effusion. The coronary arteries are densely calcified. Lungs and pleural spaces: There is no airspace consolidation or pleural effusion. Dependent scarring/ atelectasis is seen at the lung bases. A small calcified granuloma seen in the right lower lobe. The trachea and central airways are clear. Mild fibrotic change is seen at the apices. Mediastinum: There is no mediastinal lymphadenopathy. Rima: Clear. Axillae: There is no axillary lymphadenopathy. Upper abdomen: There is a ceukm-sd-idyhescd hiatal hernia. Partially visualized upper abdominal visce ra is otherwise within normal limits. Skeletal structures: The skeletal structures are osteopenic. There is a chronic compression deformity of T7 with evidence of previous vertebroplasty. There is significant sclerotic changes in the L1 zafar tebral body which is pathologically indeterminant, and new as compared to 04/23/2023 PET examination. There is paravertebral edema at this level. Advanced arthritic change and deformity is seen in the sh oulders. Soft tissues: Bilateral breast implants are noted. IMPRESSION: 1. There is no evidence of pulmonary embolus in the main, lobar, or segmental pulmonary arteries. 2. There is no airspace consolidation or pleural effusion. 3. There is sclerotic change throughout the body of L1 with mild surrounding paravertebral edema. Thi s is pathologically indeterminant, but new as compared to the 04/23/2023 PET examination. No additiona l similar appearing bony lesions are seen and this is likely on a degenerative basis. Given the histo ry of breast cancer metastatic disease could appear similar. In the appropriate clinical setting infe ction would also be impossible to exclude. Clinical correlation will be essential. 4. Cardiomegaly noting advanced coronary artery atherosclerosis. 5. Additional findings as above. ACT 112: Negative or not required by law. Electronically signed by: Driss Stanley M.D. 07/24/2024 4:25 PM
--- NOTE | 2024-07-24 17:03 | History & Physical Report ---
Date of Service July 24, 2024 Assessment & Plan (1) Chest pain, rule out acute myocardial infarction: Plan: Having intermittent chest pain since her NSTEMI and suspect this is just a prolonged episode of that chest pain which is most likely MSK related to her using her walker However not reproducible on palpation, she is high risk HEART score 6, complicated multiple stents in October 2023 and HbA1C 12.5 on very unclear/unsafe insulin regimen Trend troponins overnight, TTE tomorrow Consult cardiology for review tomorrow (2) CAD (coronary artery disease): Plan: ASA, Brilinta, Entresto, Metoprolol, atorvastatin (3) HFrEF (heart failure with reduced ejection fraction): Plan: No current acute exacerbation suspected Continue Jardiance and furosemide home dosing (4) Poorly controlled type 2 diabetes mellitus: Plan: HbA1C 12.5 - assistant health educator consulted Patient prescribed U-500 15 units TID although patient reports she is taking 70 units BID Will dose insulin base on prior hospitalization given this significant discrepancy Lantus 10 units BID Novolog: --Goal BSG Range: Low 110 mg/dL, High 140 mg/dL --Correction Factor: 20 mg/dL/unit --Carbohydrate ratio = 7 g/unit --BSGs ACHS if eating, q6h if npo Consult pharmacy for ongoing diabetes control Plan VTE Prophylaxis - low risk for overnight stay Diet - heart healthy, T2DM Disposition - observation to PCU Admission and Anticipated Discharge Date Admission Date: July 24, 2024 History of Present Illness Chief Complaint: Chest pain Primary Care Provider: Millie Edwards MD Dinorah Robledo is a 79 year old female who presents to the ER with chest pain. She has a significant history of NSTEMI in October 2023 requiring multiple stents and catheterizations with transfer to [place]. Since this she has been getting some intermittent chest pain and was started on ISMN in May although subsequently held due to headaches. The pain was also suspected to be GI in origin and she underwent EGD in May showing gastritis which she reports reflux has resolved with Dexilant. She reports her current chest pain started at 9pm last night. Feels like her prior NSTEMI which is different from her reflux feeling which is higher up. Started when she got up to go to the bathroom and never resolved. Substernal without radiation. Severity currently 5/10 and constant pressure. Reports Fentanyl helped but only for 10-15 minutes. Allergies Allergy/AdvReac Type Severity Reaction Status Date / Time buspirone Allergy Intermediate itchy all Verified 07/09/24 10:18 over and heart palpitaitons with tachycardia levofloxacin Allergy Unknown ITCHY HIVES Verified 07/09/24 10:18 ofloxacin Allergy Unknown RASH Verified 07/09/24 10:18 pioglitazone Allergy Unknown ITCHING Verified 07/09/24 10:18 Sulfa (Sulfonamide Allergy Unknown itchy Verified 07/09/24 10:18 Antibiotics) Home Medications Medication Instructions Recorded Confirmed Type cyanocobalamin (vitamin B-12) 1,000 mcg PO QAM 05/13/19 07/24/24 History 1,000 mcg tablet multivitamin (Multiple Vitamins 1 tab PO QAM 07/01/19 07/24/24 History tablet) levalbuterol HCl 0.63 mg/3 mL 0.63 mg (3 mL) inhalation TID PRN 12/23/19 07/24/24 Rx solution for nebulization shortness of breath or wheezing #360 mL polyethylene glycol 3350 17 17 g PO QAM 05/19/20 07/24/24 History gram/dose oral powder (Miralax) zmjjurmjsd-tgpcmdg-pxdmaaoc 50 1 cap PO Q4H PRN pain #1 cap 07/30/22 07/24/24 Rx mg-325 mg-40 mg capsule ipratropium bromide 21 mcg (0.03 2 spray intranasal BID PRN 03/03/23 07/24/24 History %) nasal spray Congestion atorvastatin 80 mg tablet 80 mg PO QPM #90 tabs 09/24/23 07/24/24 Rx ezetimibe 10 mg tablet (Zetia) 10 mg PO HS 10/06/23 07/24/24 History aspirin 81 mg tablet,delayed 81 mg PO QAM #90 tabs 10/09/23 07/24/24 Rx release nitroglycerin 0.4 mg sublingual 0.3 mg (0.75 x 0.4 mg) sublingual 10/22/23 07/24/24 Rx tablet Q5M PRN chest pain #10 tabs magnesium oxide 400 mg PO DAILY #30 caps 10/31/23 07/24/24 Rx potassium chloride 20 mEq 20 meq PO DAILY #30 tabs 10/31/23 07/24/24 Rx tablet,extended release ticagrelor 90 mg tablet 90 mg PO BID #180 tabs 12/10/23 07/24/24 Rx ondansetron 4 mg disintegrating 4 mg PO Q8H PRN Nausea And 12/24/23 07/24/24 Rx tablet Vomiting #120 tabs cholecalciferol (vitamin D3) 62.5 62.5 mcg PO DAILY 01/19/24 07/24/24 History mcg (2,500 unit) capsule duloxetine 60 mg capsule,delayed 60 mg PO QAM #90 caps 03/02/24 07/24/24 Rx release gabapentin 600 mg tablet 600 mg PO TID #90 tabs 03/02/24 07/24/24 Rx sacubitril 49 mg-valsartan 51 mg 1 tab PO BID #180 tabs 03/02/24 07/24/24 Rx tablet (Entresto) fluticasone propionate 230 2 inh inhalation BID 90 days #3 03/16/24 07/24/24 Rx mcg-salmeterol 21 mcg/actuation Inhalers HFA inhaler (Advair HFA) tiotropium bromide 2.5 2 puff inhalation QAM #3 Inhalers 03/16/24 07/24/24 Rx mcg/actuation mist for inhalation (Spiriva Respimat) dexlansoprazole 60 mg 60 mg PO QAM #90 caps 04/14/24 07/24/24 Rx capsule,biphase delayed release (Dexilant) famotidine 40 mg tablet 40 mg PO BID PRN heartburn #60 tabs 05/26/24 07/24/24 Rx albuterol sulfate 90 mcg/actuation 2 inh inhalation Q4H PRN SOB 05/27/24 07/24/24 History aerosol inhaler (Ventolin HFA) empagliflozin 25 mg tablet 25 mg PO DAILY Coronary Artery 05/27/24 07/24/24 History Disease furosemide 20 mg tablet 20 mg PO QAM 05/27/24 07/24/24 History isosorbide mononitrate 30 mg 30 mg PO .HOLD 05/27/24 07/24/24 History tablet,extended release 24 hr metoprolol succinate 50 mg 50 mg PO QAM 05/27/24 07/24/24 History tablet,extended release 24 hr prucalopride 2 mg tablet 2 mg PO QAM 05/27/24 07/24/24 History (Motegrity) spironolactone 25 mg tablet 25 mg PO QAM 05/27/24 07/24/24 History simethicone 250 mg capsule 250 mg PO BID PRN abdominal 06/23/24 07/24/24 Rx (Phazyme) distention #30 caps valacyclovir 1 gram tablet 2,000 mg (2 x 1 gram) PO BID PRN 06/30/24 07/24/24 Rx cold sores 1 day #4 tabs insulin regular hum U-500 conc 500 See Rx Instructions subcut 07/12/24 07/24/24 Rx unit/mL(3 mL) subcut pen (Humulin .COMPLEX #36 mL R U-500 (Conc) Insulin Kwikpen) alprazolam 0.25 mg tablet 0.25 mg PO DAILY PRN anxiety #30 07/23/24 07/24/24 Rx tabs Past Med/Surg History Problem List (Updated 07/24/24 @ 23:41 by Abdiel Padron MD) Chest pain, rule out acute myocardial infarction Hyperglycemia (Acute) Non-ST elevation [place] (NSTEMI) (Acute) Chest pain (Acute) Osteoporosis Diagnosed based on high FRAX score Spinal stenosis of lumbar region (~01/26/24) Paresthesia of right lower extremity Adjacent segment disease of lumbar spine with history of fusion procedure Lumbar radiculopathy Lumbar post-laminectomy syndrome History of lumbar fusion S/P coronary artery stent placement Oct 2023- 5 or 6 placed CAD (coronary artery disease) HFrEF (heart failure with reduced ejection fraction) Hyponatremia SIADH (syndrome of inappropriate ADH production) Poorly controlled type 2 diabetes mellitus Hypertension Cerebrovascular disease 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, history of retinal artery occlusion Pacemaker 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 s/p Med[employer]onic [place] XT DR MRI Dual Chamber Pacemaker 04/12/21 LAST PACEMAKER CHECK 12/2021 Chronic obstructive pulmonary disease Stable per pt Gastroparesis Mitral regurgitation (Acute) Dyslipidemia (Chronic) Gastroesophageal reflux disease Depression with anxiety Medical History Anxiety with depression Dyslipidemia Mitral regurgitation Gastroparesis COPD (chronic obstructive pulmonary disease) Cerebrovascular disease Hypertension Poorly controlled type 2 diabetes mellitus SIADH (syndrome of inappropriate ADH production) CHF (congestive heart failure) CAD (coronary artery disease) Lumbar post-laminectomy syndrome Lumbar radiculopathy Paresthesia of right lower extremity Osteoporosis Hx of myocardial infarction History of breast cancer Knee osteoarthritis History of fracture Vitamin D deficiency Chronic sinusitis with recurrent bronchitis Saline breast implant in situ Migraines Mixed conductive and sensorineural hearing loss of right ear with restricted hearing of left ear Eustachian tube dysfunction Frequent falls Chronic cough 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 of 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 Duodenal hemorrhage Complex regional pain syndrome type 1 affecting left shoulder Horners syndrome Post-traumatic stress disorder Fatty liver Carotid stenosis, asymptomatic Surgical History Hx of heart artery stent Hx of cardiac cath History of open reduction and internal fixation (ORIF) procedure Pacemaker History of carotid endarterectomy History of breast reconstruction History of colonoscopy with polypectomy History of total hysterectomy with bilateral salpingo-oophorectomy (BSO) History of bilateral tubal ligation History of trigger finger History of surgery on left wrist History of carpal tunnel release of both wrists History of fusion of lumbar spine History of fusion of cervical spine History of total right knee replacement (TKR) History of bladder suspension procedure History of esophagogastroduodenoscopy (EGD) History of cholecystectomy History of right breast biopsy History of bilateral mastectomy History of oral surgery History of bilateral cataract extraction Abdominoplasty (05/12/13) Family History Son Crohn's disease Sister Ulcerative colitis Family history of diabetes mellitus Mother Family history of diabetes mellitus Brother Family history of diabetes mellitus Other No family history of adverse response to anesthesia No family history of bleeding disorder Social History Smoking Status: Never smoker Second Hand Exposure: No; Do You Dip or Chew Tobacco: No; Hx Alcohol Use: Yes Alcohol type: beer Hx Substance Use: No Preferred Language: Malay Communication Ability: Effective Visual Impairment: No 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 Beliefs That Will Affect Care: None marital status: Current Living Situation: Alone Current Living Situation Comment: LIVES WITH SPOUSE current occupational status: retired current occupation: Retired Feels Safe at Home: Yes Safety Concerns: Feels Safe At This Time Diet: diabetic during the past year weight has: decreased > 10 lbs Dental Care, Regularly: Yes Physical Activity Frequency: Daily Seatbelt Use: always Sunscreen Use: Yes Assistive Devices: Glasses Assistive Devices Comment: dental implants Review of Systems Review of Systems: All systems reviewed & are unremarkable except as noted in HPI & below Physical Exam Constitutional: WD/WN, vitals as above Eyes: + anicteric sclerae; normal pupil size Respiratory: normal respiratory effort, lungs clear to auscultation Cardiovascular: RRR, no murmur, no edema Gastrointestinal (Abdomen): normal bowel sounds, soft, nontender, no hepatosplenomegaly Musculoskeletal: no cyanosis or clubbing, extremities motor strength 5/5 Skin: no rashes, warm and dry Neurologic: moves all extremities and awake; not confused Psychiatric: A+Ox3, euthymic affect Genitourinary: no CVA tenderness Results & Data Results & Data Vital Signs (Past 12 Hours) Vital Signs Temp Pulse Resp BP Pulse Ox O2 Del Method 07/24/24 16:39 66 16 102/67 97 07/24/24 16:13 66 17 91/52 L 94 07/24/24 14:11 80 07/24/24 13:34 36.3 C L 83 20 103/67 98 Room Air 07/24/24 13:30 97 Room Air Laboratory Results Abnormal lab results 07/24/24 07/24/24 07/24/24 Range/Units 14:09 17:56 18:02 [place] # (Auto) 0.64 H (0.11-0.59) K/uL Sodium 133 L (136-145) mmol/L Anion Gap 12 H (3-11) BUN 28 H (6-23) mg/dl BUN/Creatinine Ratio 28.6 H (10-20) Glucose 338 H* (70-99(Fasting)) mg/dl POC Glucose 165 H (70-99) mg/dl Alkaline Phosphatase 110 H (34-104) U/L Troponin I High Sens 15.9 H 20.6 H (0-14) pg/ml 07/24/24 Range/Units 22:27 [place] # (Auto) (0.11-0.59) K/uL Sodium (136-145) mmol/L Anion Gap (3-11) BUN (6-23) mg/dl BUN/Creatinine Ratio (10-20) Glucose (70-99(Fasting)) mg/dl POC Glucose 206 H (70-99) mg/dl Alkaline Phosphatase (34-104) U/L Troponin I High Sens (0-14) pg/ml Diagnostic Findings SINGLE VIEW CHEST CLINICAL HISTORY: Atypical chest pain. FINDINGS: 2 AP, portable, upright chest radiographs are compared to study dated 06/01/2024. A 2-lead cardiac pacemaker is unchanged in position. The heart is enlarged noting atherosclerotic calcification of the thoracic aorta. The pulmonary vasculature is not congested. Chronic interstitial thickening is similar to previous. There is bibasilar scarring/atelectasis. No airspace consolidation or large pleural effusion is identified. No pneumothorax is seen. The skeletal structures are osteopenic. Advanced arthritic change and deformity is seen in the shoulders. Fusion hardware is noted in the lower cervical spine as well as the lumbar spine. IMPRESSION: 1. Cardiomegaly and cardiac pacemaker without radiographic evidence of congestive failure. 2. No airspace consolidation or large pleural effusion is identified. CT ANGIOGRAM OF THE CHEST CLINICAL HISTORY: Atypical chest pain. History of breast cancer. COMPARISON STUDY: Chest x-ray dated 07/24/2024. The chest CT dated 01/05/2008. PET/CT dated 04/23/2023. MRI of lumbar spine dated 10/09/2023. TECHNIQUE: Following the IV administration of 160 cc of Optiray 320, CT angiogram of the chest was performed from the upper abdomen to the thoracic inlet utilizing the pulmonary embolus protocol. Images are reviewed in the axial, sagittal, and coronal planes. 3-D MIPS images are created and assessed. IV contrast was administered without complication. A dose lowering technique was utilized adhering to the principles of ALARA. CT DOSE: 673.19 mGy.cm FINDINGS: Thyroid: Normal in size and heterogeneous in attenuation. Thoracic aorta: There is atherosclerotic calcification of the thoracic aorta, which is normal in caliber and demonstrates standard 3-vessel arch anatomy. The thoracic aorta is not well opacified. Pulmonary vasculature: The pulmonary trunk is normal in caliber. There are no filling defects identified in main, lobar, or segmental pulmonary branches to suggest pulmonary embolus. Heart: A cardiac pacemaker is seen in the left chest wall. The heart is enlarged and without pericardial effusion. The coronary arteries are densely calcified. Lungs and pleural spaces: There is no airspace consolidation or pleural effusion. Dependent scarring/atelectasis is seen at the lung bases. A small calcified granuloma seen in the right lower lobe. The trachea and central airways are clear. Mild fibrotic change is seen at the apices. Mediastinum: There is no mediastinal lymphadenopathy. Rima: Clear. Axillae: There is no axillary lymphadenopathy. Upper abdomen: There is a gakwl-ua-kspkskqm hiatal hernia. Partially visualized upper abdominal viscera is otherwise within normal limits. Skeletal structures: The skeletal structures are osteopenic. There is a chronic compression deformity of T7 with evidence of previous vertebroplasty. There is significant sclerotic changes in the L1 vertebral body which is pathologically indeterminant, and new as compared to 04/23/2023 PET examination. There is paravertebral edema at this level. Advanced arthritic change and deformity is seen in the shoulders. Soft tissues: Bilateral breast implants are noted. IMPRESSION: 1. There is no evidence of pulmonary embolus in the main, lobar, or segmental pulmonary arteries. 2. There is no airspace consolidation or pleural effusion. 3. There is sclerotic change throughout the body of L1 with mild surrounding paravertebral edema. This is pathologically indeterminant, but new as compared to the 04/23/2023 PET examination. No additional similar appearing bony lesions are seen and this is likely on a degenerative basis. Given the history of breast cancer metastatic disease could appear similar. In the appropriate clinical setting infection would also be impossible to exclude. Clinical correlation will be essential. 4. Cardiomegaly noting advanced coronary artery atherosclerosis. 5. Additional findings as above. Medications Administered ER Medications Given: Aspirin 243mg PO Fentanyl 50 mcg IV ECG Rate (beats per minute): 81 Rhythm: other (atrial sensed ventricular paced rhythm) Findings: no acute ischemic change Comparison ECG Date: from (June 01, 2024) Change: the following changes noted (ventricular pacing replaced SR) Code Status & VTE Plan Code Status Full VTE Prophylaxis Plan VTE Prophylaxis will be ordered: No PG Care Time/CCT Total # of Minutes Spent Total Time Spent with Patient: Total time spent is greater than 50% in coordination of care (as documented) at patient's floor/unit and/or counseling patient: Coding Level of Care Code 67528 INT INP/OBS CARE 3/75MIN Diagnoses Chest pain, rule out acute myocardial infarction R07.9 CAD (coronary artery disease) I25.10 HFrEF (heart failure with reduced ejection fraction) I50.20 Poorly controlled type 2 diabetes mellitus E11.65
[2024-07-24] MEDS: NovoLIN-R INSULIN PER UNIT CHARGE IV STA (18:08)
[2024-07-24] MEDS: oxyCODONE HCL IR 5 MG TAB (IMMEDIATE RELEASE) PO STA (20:28)
[2024-07-24] MEDS ORDERED: GLUCAGON FOR INJ 1 MG VIAL SQ PRN (21:59)
[2024-07-24] MEDS ORDERED: GLUCOSE 10 TAB/TUBE PO PRN (21:59)
[2024-07-24] MEDS ORDERED: DEXTROSE 50% 50 ML SYRINGE IV PRN (21:59)
[2024-07-24] MEDS ORDERED: PHARMACY GLYCEMIC MGMT CONSULT PRN (21:59)
[2024-07-24] MEDS: INSULIN ASPART PER UNIT CHARGE SC SCH (22:35)
[2024-07-24] MEDS: LANTUS PER UNIT CHARGE SQ ONE (22:36)
[2024-07-25] MEDS ORDERED: IPRATROPIUM BROMIDE NASAL SPRAY 0.06% 15ML NAE PRN (00:20)
[2024-07-25] MEDS: ATORVASTATIN 40 MG TAB PO SCH (00:28)
[2024-07-25] MEDS: EZETIMIBE 10 MG TAB PO SCH (00:28)
[2024-07-25] MEDS: TICAGRELOR 90 MG TAB PO SCH (00:28)
[2024-07-25] MEDS: VALSARTAN/SACUBITRIL 51/49 MG TAB PO SCH (00:28)
[2024-07-25] MEDS: oxyCODONE HCL IR 5 MG TAB (IMMEDIATE RELEASE) PO PRN ×2 (01:10→15:01)
[2024-07-25] MEDS: INSULIN ASPART PER UNIT CHARGE SC SCH (02:20)
[2024-07-25] MEDS: SODIUM CHLORIDE 0.9% 250 ML IV ONE (03:56)
[2024-07-25] MEDS: ALPRAZolam 0.25 MG TABLET PO PRN ×2 (09:12→15:02)
[2024-07-25] MEDS: NITROGLYCERIN SL 0.4 MG/TAB TAB SL STA (09:33)
[2024-07-25] MEDS: ASPIRIN 81 MG ECTAB PO SCH (09:33)
[2024-07-25] MEDS ORDERED: NITROGLYCERIN SL 0.4 MG/TAB TAB SL PRN (09:34)
[2024-07-25] MEDS: METOPROLOL TARTRATE 1 MG/ML VIAL IV STA ×2 (09:55→10:19)
[2024-07-25] MEDS: NovoLIN-N (NPH) PER UNIT CHARGE SQ SCH ×2 (09:59→16:39)
--- NOTE | 2024-07-25 10:00 | Hospitalist Progress Note ---
Date of Service July 25, 2024 Assessment & Plan (1) Chest pain, rule out acute myocardial infarction: Plan: 79 y/o with HFrEF and severe multivessel CAD required 5 stents Oct 2023 at time of NSTEMI. Some done here by Dr. Javier and transferred to [facility], she says she declined CABG but more stents were placed. Admitting EKG vpaced. initial troponins very low Chest pain - HS trop mildly elevated and trended up to 110s this morning, chest pain episode this AM - reviewed EKG - there is ST elevation in II, III, and avf with some reciprocal depression highly concerning for ACS, and different from EKG last month, discussed with crane follower Dr. Lambert who is evaluating the patient shortly. TTE images collected and she will review -SL NTG PRN for now, may need nitro drip -metoprolol 5 mg IV x 1 as discussed with crane follower -had ASA this am and small amount of breakfast, other meds held for the moment, npo pending further evaluation -repeat EKG and Trop now -updated her son at bedside, discussed with bedside RN several times addendumdiscussed with Dr. Garnica, treating for STEMI, Industrial Maintenance Manager activated/heart alert, repeat dose of 5 mg IV metoprolol, start heparin bolus and drip, give dose of Brilinta. discussed also with bedside RN and reexamined patient several times chest pain improved a little bit but remains, does not appear dyspneic lower extremities are cool to touch but perfused. later on I have report from Industrial Maintenance Manager that she had LAD stent and plans transfer to ICU. admitted as inpatient. Has HFrEF wth EF 30-35% improved to 40-45% on most recent TTE, does not appear volume overloaded. TTE this am pending. Usual cardiac meds: metoprolol XL 50 mg, ASA, brilinta, entresto, empaglifozin, atorvastatin 80, zetia, furosemide 20, brando 25 Imdur tried this spring as antianginal but caused headache? PMD reduced one of her cardiac meds by 50% several weeks ago for headache, but Ursula increased it back to usual dose at least a week ago. Not sure which med. (2) CAD (coronary artery disease): Plan: see above (3) HFrEF (heart failure with reduced ejection fraction): Plan: No current acute exacerbation suspected see above (4) Poorly controlled type 2 diabetes mellitus: Plan: HbA1C 12.5 - clinical trial educator consulted Patient prescribed U-500 15 units TID although patient reports she is taking 70 units BID Will dose insulin base on prior hospitalization given this significant discrepancy Lantus 10 units BID - held this a.m. because of events, made n.p.o. Novolog: --Goal BSG Range: Low 110 mg/dL, High 140 mg/dL --Correction Factor: 20 mg/dL/unit --Carbohydrate ratio = 7 g/unit --BSGs ACHS if eating, q6h if npo Consult pharmacy for ongoing diabetes control Plan VTE Prophylaxis - heparin drip started for STEMI Disposition - ICU after Industrial Maintenance Manager I updated her son at bedside today Admission and Anticipated Discharge Date Admission Date: July 24, 2024 Subjective anxious and felt she needed to go home early this AM when I saw her. Shortly after had recurrent SSCP nonradiating associated with nausea and occurred at rest. Nonexertional, has been resting in bed. Had SL NTG x 1 and a xanax, pain persists when reevaluated shortly after. No dyspnea. Physical Exam 2 Physical Exam: PHYSICAL EXAMINATION Last 24h vital signs reviewed, see documentation in flowsheet General: highly anxious HEENT: Normocephalic, atraumatic, pupils round and equal, sclerae anicteric, no conjunctival injection, moist mucus membranes Lungs: Normal respiratory effort. Clear to auscultation bilaterally. No RRW Heart: Regular rate and rhythm, no murmurs. No JVD. chest wall nontender to palpation Abdomen: Soft, nontender, nondistended. Bowel sounds present. Extremities: Warm, dry, well-perfused. mild lower extremity edema. Neuro: Alert and oriented x 4, face symmetric, moves 4 extremities well Psych: anxious affect and behavior Results & Data Results & Data Vital Signs (Past 12 Hours) Vital Signs Temp Pulse Pulse Resp BP Pulse Ox O2 Del Method 07/25/24 09:25 92 H 18 123/80 99 Room Air 07/25/24 07:31 36.7 C 77 17 115/71 99 Room Air 07/25/24 07:06 71 07/25/24 04:20 106/68 07/25/24 03:38 36.5 C 68 16 91/55 L 97 Room Air 07/24/24 22:21 36.7 C 73 16 141/83 H 97 Room Air 07/24/24 22:00 76 Laboratory Results 07/24/24 14:09 07/24/24 14:09 PG Care Time/CCT Total # of Minutes Spent Total Time Spent with Patient: Total time spent is greater than 50% in coordination of care (as documented) at patient's floor/unit and/or counseling patient: Critical Care Time: Yes Total Critical Care Time: 45 I spent 45 minutes critical care time at the bedside reviewing studies, EKGs, labs, ordering medications, examining patient several times, discussion with crane follower and bedside RN as well as her son for this life-threatening event Coding Level of Care Code 40655 SUB INP/OBS CARE 3/50MIN (25 - SIGNIFICANT, SEPARATELY IDENTIFIABLE ) Diagnoses Chest pain, rule out acute myocardial infarction R07.9 CAD (coronary artery disease) I25.10 HFrEF (heart failure with reduced ejection fraction) I50.20 Poorly controlled type 2 diabetes mellitus E11.65 Additional Codes Critical Care Time - Critical Care Time: Yes ([id number])
--- NOTE | 2024-07-25 10:25 | Cardiology Consultation ---
Date of Consultation July 25, 2024 Assessment & Plan (1) STEMI (ST elevation myocardial infarction): (2) Chest pain: (3) HFrEF (heart failure with reduced ejection fraction): (4) S/P coronary artery stent placement: (5) Cerebrovascular disease: (6) Pacemaker: Plan Urgent Cath cont current meds for now. await cath to further define anatomy. Will review with Dr. Rivera post cath. Discussed with patients son. History of Present Illness Reason for Consultation: possible STEMI Requesting Physician: Dr. Lashon Rees Attending Physician: Lashon Rees MD Primary associate professor of psychology is Dr. Latrell West History of Present Illness Dinorah is a 79 y/o with a previous cardiac history of NonSTEMI back in Oct 2023-she was found to have severe multivessel CAD. She underwent staged intervention to her Left main and LAD with 2 stents and then to the Cx. This 2nd procedure was complicated by hypotension and needing pressors. She was transferred to [facility]. She started having stuttering CP on Friday-came to the hospital yesterday and initial treatment resolved symptoms. Overnight she felt she was doing ok and about 1 hour ago started having severe 8/10 chest pain. Initial ECG showed a Vpaced rhythm. Repeat ECG shows inferior ST elevation with lateral reciprocal changes which is new c/w her prior NONpaced ECG. She was given ASA, SL NTG, IV metoprolol and CP is down to 4/10. To be given her Brilinta, IV heparin and additional B neeru. Cardiac cath team was called in. Pt appears more comfortable than earlier. Case discussed with Dr. Tono Rivera as well as Dr Rees. The engineer geophysical laboratory is en route to the hospital. Allergies Allergy/AdvReac Type Severity Reaction Status Date / Time buspirone Allergy Intermediate itchy all Verified 07/09/24 10:18 over and heart palpitaitons with tachycardia levofloxacin Allergy Unknown ITCHY HIVES Verified 07/09/24 10:18 ofloxacin Allergy Unknown RASH Verified 07/09/24 10:18 pioglitazone Allergy Unknown ITCHING Verified 07/09/24 10:18 Sulfa (Sulfonamide Allergy Unknown itchy Verified 07/09/24 10:18 Antibiotics) Home Medications Medication Instructions Recorded Confirmed Type cyanocobalamin (vitamin B-12) 1,000 mcg PO QAM 05/13/19 07/24/24 History 1,000 mcg tablet multivitamin (Multiple Vitamins 1 tab PO QAM 07/01/19 07/24/24 History tablet) levalbuterol HCl 0.63 mg/3 mL 0.63 mg (3 mL) inhalation TID PRN 12/23/19 07/24/24 Rx solution for nebulization shortness of breath or wheezing #360 mL polyethylene glycol 3350 17 17 g PO QAM 05/19/20 07/24/24 History gram/dose oral powder (Miralax) erakkzuqhn-oyxrpmt-xrzvsrjg 50 1 cap PO Q4H PRN pain #1 cap 07/30/22 07/24/24 Rx mg-325 mg-40 mg capsule ipratropium bromide 21 mcg (0.03 2 spray intranasal BID PRN 03/03/23 07/24/24 History %) nasal spray Congestion atorvastatin 80 mg tablet 80 mg PO QPM #90 tabs 09/24/23 07/24/24 Rx ezetimibe 10 mg tablet (Zetia) 10 mg PO HS 10/06/23 07/24/24 History aspirin 81 mg tablet,delayed 81 mg PO QAM #90 tabs 10/09/23 07/24/24 Rx release nitroglycerin 0.4 mg sublingual 0.3 mg (0.75 x 0.4 mg) sublingual 10/22/23 07/24/24 Rx tablet Q5M PRN chest pain #10 tabs magnesium oxide 400 mg PO DAILY #30 caps 10/31/23 07/24/24 Rx potassium chloride 20 mEq 20 meq PO DAILY #30 tabs 10/31/23 07/24/24 Rx tablet,extended release ticagrelor 90 mg tablet 90 mg PO BID #180 tabs 12/10/23 07/24/24 Rx ondansetron 4 mg disintegrating 4 mg PO Q8H PRN Nausea And 12/24/23 07/24/24 Rx tablet Vomiting #120 tabs cholecalciferol (vitamin D3) 62.5 62.5 mcg PO DAILY 01/19/24 07/24/24 History mcg (2,500 unit) capsule duloxetine 60 mg capsule,delayed 60 mg PO QAM #90 caps 03/02/24 07/24/24 Rx release gabapentin 600 mg tablet 600 mg PO TID #90 tabs 03/02/24 07/24/24 Rx sacubitril 49 mg-valsartan 51 mg 1 tab PO BID #180 tabs 03/02/24 07/24/24 Rx tablet (Entresto) fluticasone propionate 230 2 inh inhalation BID 90 days #3 03/16/24 07/24/24 Rx mcg-salmeterol 21 mcg/actuation Inhalers HFA inhaler (Advair HFA) tiotropium bromide 2.5 2 puff inhalation QAM #3 Inhalers 03/16/24 07/24/24 Rx mcg/actuation mist for inhalation (Spiriva Respimat) dexlansoprazole 60 mg 60 mg PO QAM #90 caps 04/14/24 07/24/24 Rx capsule,biphase delayed release (Dexilant) famotidine 40 mg tablet 40 mg PO BID PRN heartburn #60 tabs 05/26/24 07/24/24 Rx albuterol sulfate 90 mcg/actuation 2 inh inhalation Q4H PRN SOB 05/27/24 07/24/24 History aerosol inhaler (Ventolin HFA) empagliflozin 25 mg tablet 25 mg PO DAILY Coronary Artery 05/27/24 07/24/24 History Disease furosemide 20 mg tablet 20 mg PO QAM 05/27/24 07/24/24 History isosorbide mononitrate 30 mg 30 mg PO .HOLD 05/27/24 07/24/24 History tablet,extended release 24 hr metoprolol succinate 50 mg 50 mg PO QAM 05/27/24 07/24/24 History tablet,extended release 24 hr prucalopride 2 mg tablet 2 mg PO QAM 05/27/24 07/24/24 History (Motegrity) spironolactone 25 mg tablet 25 mg PO QAM 05/27/24 07/24/24 History simethicone 250 mg capsule 250 mg PO BID PRN abdominal 06/23/24 07/24/24 Rx (Phazyme) distention #30 caps valacyclovir 1 gram tablet 2,000 mg (2 x 1 gram) PO BID PRN 06/30/24 07/24/24 Rx cold sores 1 day #4 tabs insulin regular hum U-500 conc 500 See Rx Instructions subcut 07/12/24 07/24/24 Rx unit/mL(3 mL) subcut pen (Humulin .COMPLEX #36 mL R U-500 (Conc) Insulin Kwikpen) alprazolam 0.25 mg tablet 0.25 mg PO DAILY PRN anxiety #30 07/23/24 07/24/24 Rx tabs Patient History Medical History Anxiety with depression Dyslipidemia Mitral regurgitation Gastroparesis COPD (chronic obstructive pulmonary disease) Cerebrovascular disease Hypertension Poorly controlled type 2 diabetes mellitus SIADH (syndrome of inappropriate ADH production) CHF (congestive heart failure) CAD (coronary artery disease) reason for jardiance Lumbar post-laminectomy syndrome Lumbar radiculopathy Paresthesia of right lower extremity Osteoporosis Hx of myocardial infarction 10/2023, x2 History of breast cancer ~2013, sx only Knee osteoarthritis History of fracture Humerus Vitamin D deficiency Chronic sinusitis with recurrent bronchitis Saline breast implant in situ Migraines hx Mixed conductive and sensorineural hearing loss of right ear with restricted hearing of left ear Eustachian tube dysfunction Frequent falls "no current issues" Chronic cough 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 Kohli Surgical History Hx of heart artery stent 10/2023, [place], [facility], x5 stents; f/u dr. west, [address] in 10/2023, flown to [facility], had "few more stents placed, unsure of how many" Hx of cardiac cath History of open reduction and internal fixation (ORIF) procedure left humerus and wrist>hardware intact (2 separate sx) Pacemaker Medtronic, placed 03/2021, follows with [place] [facility] History of carotid endarterectomy right, 2013 History of breast reconstruction Bilateral, Dr. Barr, Tanner Style 410 implant, size unknown History of colonoscopy with polypectomy History of total hysterectomy with bilateral salpingo-oophorectomy (BSO) History of bilateral tubal ligation History of trigger finger x4--bilt hands History of surgery on left wrist plate in place duplicate History of carpal tunnel release of both wrists History of fusion of lumbar spine x4, most recent was 2021, [facility], L2-L4, L4-L5 hardware removal History of fusion of cervical spine ~2012, x3--"cant turn to the right" History of total right knee replacement (TKR) History of bladder suspension procedure History of esophagogastroduodenoscopy (EGD) History of cholecystectomy History of right breast biopsy malignant History of bilateral mastectomy h/o R breast [place]-lymph node removal R side History of oral surgery gum sx History of bilateral cataract extraction Abdominoplasty (05/12/13) Family History Son Crohn's disease Sister Ulcerative colitis Family history of diabetes mellitus Mother Family history of diabetes mellitus Brother Family history of diabetes mellitus Other No family history of adverse response to anesthesia No family history of bleeding disorder Social History Smoking Status: Never smoker Second Hand Exposure: No; Do You Dip or Chew Tobacco: No; Hx Alcohol Use: Yes Alcohol type: beer Hx Substance Use: No Preferred Language: Occitan Communication Ability: Effective Visual Impairment: No Limitations Water Technician Required: No Beliefs That Will Affect Care: None marital status: Current Living Situation: Alone Current Living Situation Comment: LIVES WITH SPOUSE current occupational status: retired current occupation: Retired Feels Safe at Home: Yes Safety Concerns: Feels Safe At This Time Diet: diabetic during the past year weight has: decreased > 10 lbs Dental Care, Regularly: Yes Physical Activity Frequency: Daily Seatbelt Use: always Sunscreen Use: Yes Assistive Devices: Glasses Assistive Devices Comment: dental implants Review of Systems Review of Systems: All systems reviewed & are unremarkable except as noted in HPI & below Respiratory: as per Subjective / HPI Cardiovascular: as per Subjective / HPI Physical Exam Constitutional: well developed and well nourished mild distress Respiratory: Auscultation: lungs clear to auscultation bilaterally Cardiovascular: Rate/Rhythm: regular rate and regular rhythm murmur not appreciated trace LE edema varicose veins Results & Data Vital Signs (Past 12 Hours) Vital Signs Temp Pulse Pulse Resp BP BP Pulse Ox 07/25/24 10:18 88 136/88 07/25/24 09:55 92 H 114/72 07/25/24 09:49 114/72 07/25/24 09:25 92 H 18 123/80 99 07/25/24 07:31 36.7 C 77 17 115/71 99 07/25/24 07:06 71 07/25/24 04:20 106/68 07/25/24 03:38 36.5 C 68 16 91/55 L 97 07/24/24 22:21 36.7 C 73 16 141/83 H 97 O2 Del Method 07/25/24 10:18 07/25/24 09:55 07/25/24 09:49 07/25/24 09:25 Room Air 07/25/24 07:31 Room Air 07/25/24 07:06 07/25/24 04:20 07/25/24 03:38 Room Air 07/24/24 22:21 Room Air Laboratory Results Abnormal lab results 07/24/24 07/24/24 07/24/24 Range/Units 14:09 17:56 18:02 [place] # (Auto) 0.64 H (0.11-0.59) K/uL Sodium 133 L (136-145) mmol/L Anion Gap 12 H (3-11) BUN 28 H (6-23) mg/dl BUN/Creatinine Ratio 28.6 H (10-20) Glucose 338 H* (70-99(Fasting)) mg/dl POC Glucose 165 H (70-99) mg/dl Alkaline Phosphatase 110 H (34-104) U/L Troponin I High Sens 15.9 H 20.6 H (0-14) pg/ml 07/24/24 07/25/24 07/25/24 Range/Units 22:27 00:47 02:08 [place] # (Auto) (0.11-0.59) K/uL Sodium (136-145) mmol/L Anion Gap (3-11) BUN (6-23) mg/dl BUN/Creatinine Ratio (10-20) Glucose (70-99(Fasting)) mg/dl POC Glucose 206 H 165 H (70-99) mg/dl Alkaline Phosphatase (34-104) U/L Troponin I High Sens 28.6 H (0-14) pg/ml 07/25/24 07/25/24 Range/Units 06:46 07:26 [place] # (Auto) (0.11-0.59) K/uL Sodium (136-145) mmol/L Anion Gap (3-11) BUN (6-23) mg/dl BUN/Creatinine Ratio (10-20) Glucose (70-99(Fasting)) mg/dl POC Glucose 143 H (70-99) mg/dl Alkaline Phosphatase (34-104) U/L Troponin I High Sens 117.8 H* D (0-14) pg/ml Medications Administered Alprazolam (Alprazolam 0.25 Mg Tablet) 0.25 mg PO DAILY PRN PRN Reason: anxiety Stop: 08/23/24 23:44 Last Admin: 07/25/24 09:12 Dose: 0.25 mg Documented By: MARCO Aspirin (Aspirin 81 Mg Ectab) 81 mg PO [facility] Stop: 08/24/24 08:59 Last Admin: 07/25/24 09:33 Dose: 81 mg Documented By: MARCO Atorvastatin Calcium (Atorvastatin 40 Mg Tab) 80 mg PO QPM [facility] Stop: 08/23/24 23:49 Last Admin: 07/25/24 00:28 Dose: 80 mg Documented By: RADHA Duloxetine HCl (Duloxetine Hcl 60 Mg Cap) [facility] Stop: 08/24/24 08:59 Last Admin: 07/25/24 10:45 Dose: Not Given Documented By: MARCO Ezetimibe (Ezetimibe 10 Mg Tab) 10 mg PO [facility] Stop: 08/23/24 23:49 Last Admin: 07/25/24 00:28 Dose: 10 mg Documented By: RADHA Empagliflozin (Empagliflozin 25 Mg Tab) 25 mg PO DAILY [facility] Stop: 08/24/24 08:59 Last Admin: 07/25/24 10:47 Dose: Not Given Documented By: MARCO Heparin Sodium/Dextrose (Heparin Sodium/Dextrose) 25,000 units in 500 mls @ 23 mls/hr IV .[id number] [facility]; Protocol Stop: 08/24/24 10:29 Last Titration: 07/25/24 10:47 Dose: 0 units/hr, 0 mls/hr Documented By: MARCO Co-signed By: LAF Admin: 07/25/24 10:38 Dose: 1,150 units/hr, 23 mls/hr Documented By: MARCO Co-signed By: EVANGELINA Lactated Ringer's (Lr) 1,000 mls @ 125 mls/hr IV .Q8H [facility] Stop: 08/24/24 10:14 Last Infusion: 07/25/24 10:47 Dose: 0 mls/hr Documented By: Admin: 07/25/24 10:28 Dose: 125 mls/hr Documented By: MARCO Insulin Aspart (Insulin Aspart Per Unit Charge) 0 units SC ACHS [facility] Stop: 08/23/24 22:14 Last Admin: 07/25/24 09:54 Dose: 6 units Documented By: MARCO Co-signed By: REYMUNDO Admin: 07/24/24 22:35 Dose: 4 units Documented By: RADHA Co-signed By: GILA Insulin Human NPH (Novolin-N (Nph) Per Unit Charge) 10 units SQ 0800 [facility] Stop: 07/25/24 12:00 Last Admin: 07/25/24 09:59 Dose: Not Given Documented By: MARCO Miscellaneous (Motegrity~Order Awaiting Action) 1 each N/A QS [facility] Stop: 08/24/24 00:00 Last Admin: 07/25/24 07:35 Dose: Not Given Documented By: Admin: 07/25/24 00:29 Dose: Not Given Documented By: RADHA Oxycodone HCl (Oxycodone Hcl Ir 5 Mg Tab (Immediate Release)) 5 mg PO Q4H PRN PRN Reason: MODERATE Pain (4,5,6) & Pre PT Stop: 08/07/24 23:46 Last Admin: 07/25/24 01:10 Dose: 5 mg Documented By: RADHA Sacubitril/Valsartan (Valsartan/Sacubitril 51/49 Mg Tab) 1 tab PO BID [facility] Stop: 08/23/24 23:44 Last Admin: 07/25/24 00:28 Dose: 1 tab Documented By: RADHA Ticagrelor (Ticagrelor 90 Mg Tab) 90 mg PO BID [facility] Stop: 08/23/24 23:44 Last Admin: 07/25/24 10:07 Dose: 90 mg Documented By: Admin: 07/25/24 00:28 Dose: 90 mg Documented By: RADHA
[2024-07-25] MEDS: LACTATED RINGER'S 1,000 ML IV SCH (10:28)
[2024-07-25] MEDS: HEPARIN SODIUM/DEXTROSE 25,000 UNITS/500 ML BAG IV SCH (10:38)
[2024-07-25] MEDS: DULoxetine HCL 60 MG CAP PO SCH (10:45)
[2024-07-25] MEDS: EMPAGLIFLOZIN 25 MG TAB PO SCH (10:47)
[2024-07-25] MEDS: FLUTICASONE/VILANTEROL 100/25MCG 14 PUFFS/INHALER INH SCH (10:47)
[2024-07-25] MEDS: PANTOprazole 40 MG TAB PO SCH (10:48)
[2024-07-25] MEDS: UMECLIDINIUM BROMIDE 62.5MCG/BLISTER 7 PUFFS/INHALER INH SCH (10:48)
[2024-07-25] MEDS: GABAPENTIN 600 MG TAB PO SCH (10:48)
[2024-07-25] MEDS: FUROSEMIDE 20 MG TAB PO SCH (10:48)
[2024-07-25] MEDS: SPIRONOLACTONE 25 MG TAB PO SCH (10:48)
[2024-07-25] MEDS: POTASSIUM CHLORIDE CRTAB 20 MEQ TABCR PO SCH (10:48)
[2024-07-25] MEDS: MAGNESIUM OXIDE 400 MG TAB PO SCH (10:48)
[2024-07-25] MEDS: METOPROLOL SUCC 50MG EXT REL TAB PO SCH (10:48)
[2024-07-25] MEDS: POLYETHYLENE (MIRALAX) 17 GM PACK PO SCH (10:48)
[2024-07-25] MEDS: HEPARIN (PORCINE) 1000 UNIT/ML 10 ML (CATH LAB USE ONLY) ONE (11:59)
[2024-07-25] MEDS: MIDAZOLAM HCL 1 MG/ML 2ML VIAL ONE (12:05)
[2024-07-25] MEDS: fentaNYL citrate PF 100 MCG/2 ML VIAL ONE (12:05)
[2024-07-25] MEDS: OPTIRAY 350 ONE (12:05)
--- NOTE | 2024-07-25 12:36 | Pre Anesthesia Assessment ---
Date of Service July 25, 2024 Pre Sedation Assessment Vital Signs Temp Pulse Pulse Resp BP BP Pulse Ox 07/25/24 10:32 82 135/84 07/25/24 10:19 86 135/87 07/25/24 10:18 88 136/88 07/25/24 09:55 92 H 114/72 07/25/24 09:49 114/72 07/25/24 09:25 92 H 18 123/80 99 07/25/24 09:17 07/25/24 07:31 36.7 C 77 17 115/71 99 07/25/24 07:06 71 07/25/24 04:20 106/68 07/25/24 03:38 36.5 C 68 16 91/55 L 97 07/24/24 22:21 36.7 C 73 16 141/83 H 97 07/24/24 22:00 76 07/24/24 19:49 74 14 107/52 L 99 07/24/24 18:22 65 07/24/24 18:00 70 21 114/98 100 07/24/24 16:39 66 16 102/67 97 07/24/24 16:13 66 17 91/52 L 94 07/24/24 14:11 80 07/24/24 13:34 36.3 C L 83 20 103/67 98 07/24/24 13:30 97 O2 Del Method O2 Flow Rate 07/25/24 10:32 07/25/24 10:19 07/25/24 10:18 07/25/24 09:55 07/25/24 09:49 07/25/24 09:25 Room Air 07/25/24 09:17 Nasal Cannula 2 07/25/24 07:31 Room Air 07/25/24 07:06 07/25/24 04:20 07/25/24 03:38 Room Air 07/24/24 22:21 Room Air 07/24/24 22:00 07/24/24 19:49 Room Air 07/24/24 18:22 07/24/24 18:00 07/24/24 16:39 07/24/24 16:13 07/24/24 14:11 07/24/24 13:34 Room Air 07/24/24 13:30 Room Air Cardiovascular RRR, no murmur, no edema Respiratory normal respiratory effort, lungs clear to auscultation Pre-Sedation Airway Assessment Smoking Status: Never smoker Hx Sleep Apnea: No Hx Difficult Intubation: No Mallampati 3 ASA 4 Notes The planned sedation has been discussed with the patient. Informed Consent was obtained. I have identified the patient, determined the appropriateness of sedation and have assessed the patient immediately prior to the procedure. All medicine(s) and interventions are by my order.
--- NOTE | 2024-07-25 12:39 | Post Anesthesia Assessment ---
Date of Service July 25, 2024 Post Sedation Assessment Vital Signs Temp Pulse Pulse Resp BP BP Pulse Ox 07/25/24 10:32 82 135/84 07/25/24 10:19 86 135/87 07/25/24 10:18 88 136/88 07/25/24 09:55 92 H 114/72 07/25/24 09:49 114/72 07/25/24 09:25 92 H 18 123/80 99 07/25/24 09:17 07/25/24 07:31 36.7 C 77 17 115/71 99 07/25/24 07:06 71 07/25/24 04:20 106/68 07/25/24 03:38 36.5 C 68 16 91/55 L 97 07/24/24 22:21 36.7 C 73 16 141/83 H 97 07/24/24 22:00 76 07/24/24 19:49 74 14 107/52 L 99 07/24/24 18:22 65 07/24/24 18:00 70 21 114/98 100 07/24/24 16:39 66 16 102/67 97 07/24/24 16:13 66 17 91/52 L 94 07/24/24 14:11 80 07/24/24 13:34 36.3 C L 83 20 103/67 98 07/24/24 13:30 97 O2 Del Method O2 Flow Rate 07/25/24 10:32 07/25/24 10:19 07/25/24 10:18 07/25/24 09:55 07/25/24 09:49 07/25/24 09:25 Room Air 07/25/24 09:17 Nasal Cannula 2 07/25/24 07:31 Room Air 07/25/24 07:06 07/25/24 04:20 07/25/24 03:38 Room Air 07/24/24 22:21 Room Air 07/24/24 22:00 07/24/24 19:49 Room Air 07/24/24 18:22 07/24/24 18:00 07/24/24 16:39 07/24/24 16:13 07/24/24 14:11 07/24/24 13:34 Room Air 07/24/24 13:30 Room Air Recovery Score Activity: Moves 4 extremities Respiration: Deep Breath/Cough Circulation: +/-20% PreAnes Value Consciousness: Fully Awake Oxygen Saturation: > 92% On Room Air Discharge Sedation Level of Care: Fast Track Phase II Post Sedation Plan On clinical assessment, the patient appears to have tolerated the sedation without complications. Patient is recovering as anticipated. Patient will continue to be monitored by nursing and may be discharged when sedation discharge criteria are met per below protocol. Upon Completions of procedure up to 15 minutes continue every 5 minute vital signs and the P.A.R. score; then discharge to a Phase I or Fast Track to Phase II per the following guidelines: * Discharge Patient to appropriate Phase II area if PAR is 8 or greater or return to pre- procedure baseline. The post - procedure orders will be as directed. * If PAR score is less than 8 or not return to pre-procedure baseline then patient will follow Phase I monitoring till PAR is reached for Phase II. The Phase I may be done in procedure room or may call to secure a Phase I area. * If naloxone or flumazenil are used for reversal, hold in Phase I for continued monitoring from when last reversal dose was given for a minimum of 60 minutes or longer pending the nurse and/or physician discretion of patient condition before discharge to Phase II. Please call the Sedation Physician to re-evaluate and complete post-note for discharge to Phase II area. Do NOT discharge from procedure sedation or Phase 1 until post- sedation evaluation note is complete by procedure /sedation MD Sedation Discharge Instructions to be given to the patient at discharge to home. [facility] [place] Procedure Codes (Charges) Indication for Procedure Indication for procedure: Acute DC Sedation/Anesthesia Procedure 1: Sedation/Anesthesia: 11467 Mod Sedation by the same physician;Init15 Min Child Age 5 & Up (Initial 15 minutes, start 1112) Total Sedation Time (minutes): 58 Procedure 2: Sedation/Anesthesia: 58967 Mod Sedation by the same physician; Ea [id number] Minutes (Additional 43 minutes, end time 1210) Total Sedation Time (minutes): 58
--- NOTE | 2024-07-25 12:43 | Cardiac Catheterization ---
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 Cardiac Status Clinical evaluation leading to the procedure CAD Presenation: STEMI Anginal Classification: CCS IV Cardiogenic Shock within 24 Hours: No Cardiac Arrest within 24 Hours: No Imaging Studies Past 6 Months: No Stress Studies Past 6 Months: No Coronary Anatomy Dominant: Right Left Main (% Stenosis): Normal (Stent with diffuse mild less than 20% in-stent restenosis) LAD (% Stenosis): Proximal (Mild in-stent restenosis followed by 99% in-stent restenosis/thrombosis) and Mid (Stent 99% occluded) D1 (% Stenosis): Ostial (Stent 99% occluded) Circumflex (% Stenosis): Proximal (Stent patent) OM1 (% Stenosis): Normal RCA (% Stenosis): Proximal (30%) R PDA (% Stenosis): Proximal (Up to 50%) R PL1 (% Stenosis): Normal Diagnostic Physicians Name: Shilo Rivera MD, PhD Closure Device Percutaneous Entry Location: Femoral Closure Device: Angio-Seal Recommendations: Medical Therapy and/or Counseling and PCI without planned CABG PCI Indication: PCI for STEMI - Stable Lesion Segment Name: Proximal to mid LAD Culprit Artery: Yes Stenosis Prior to Rx (%): 99% Chronic Total Occlusion: No Pre-Procedure BARRIE Flow: 1 Previously Treated Lesion: Yes Lesion Complexity: High/C Lesion Length (mm): 15 Thrombus Present: Yes Bifurcation Lesion: Yes Guidewire Across Lesion: Yes Intraprocedure Events Significant Disection: No Perforation: No Cardiac Cath Procedure Full Procedure Date July 25, 2024 Pre-Procedure Diagnosis Pre-Procedure Diagnosis: STEMI AUC Score AUC Score: 9 Post-Procedure Diagnosis Post-Procedure Diagnosis: Severe CAD and Successful PCI Procedure(s) Performed Procedure(s) Performed: Coronary Angiography, Drug Eluting Stent, Ultrasound Guided Vascular Access and Procedure (Central venous sheath placement (left femoral vein)) Patient Care Secretary Shilo Rivera MD, PhD Estimated Blood Loss Estimated Blood Loss: 10 cc Medication(s) Medication(s): Fentanyl, Heparin, Lidocaine 1% and Versed Summary of Findings Brief description: Patient was brought to the cardiac catheterization suite where she was shaved and prepped in a sterile fashion. Patient had no IV access upon arrival. Therefore, she was sedated using IV Versed and fentanyl after left femoral vein access was completed. Soft tissues of the right groin were anesthetized using 10 mL of 1% Xylocaine. Using ultrasound for guidance (image saved), the right femoral artery was accessed and a 6 [place]uvian femoral artery sheath was placed. Turned our attention to venous access. The soft tissues of the left groin were anesthetized using 10 mL of 1% Xylocaine. Again using the ultrasound for guidance (image saved), the left femoral vein was accessed and a 4 [place]uvian venous sheath was placed. All catheters were advanced and exchanged over a 0.035 J-tip wire. Left coronary angiography in orthogonal views with a 5 [place] JL 4 diagnostic catheter. Right coronary angiography in orthogonal views with a 5 [place]uv[place] JR4 diagnostic catheter. Diagnostic catheters were removed. ACT was checked and additional heparin was provided in anticipation of PCI. A 6 [place]uvian EBU 3.0 guide catheter was advanced and used to engage the left main coronary. BMW reversal guidewire was advanced and positioned distally in the LAD. A 2.0 x 12 mm ayden-NC balloon was used to dilate the in-stent restenosis distally at 18 danie x 2. A 2.5 x 12 mm ayden-NC balloon was used to dilate the in-stent restenosis proximal to the diagonal at 12 danie. A 2.25 x 12 mm [place] drug-eluting stent was positioned with its proximal edge just within the distal segment of the old mid LAD stent. It was deployed at 12 danie. The balloon was then pulled across the overlap segment and this was dilated to 20 danie. (2.5 mm diameter) the balloon was then removed. Compensation Programs Manager angiography was performed. Decision was made to add a more distal stent but in a tapered fashion. [place] vessel was small caliber. A 2.0 x 8 mm P[place] drug-eluting stent was advanced and positioned distally with its proximal segment just within the newly placed stent in the distal LAD. It was deployed at 12 danie in an overlap fashion. The stent balloon was then deflated and pulled back across the overlapped segment where it was inflated to 18 danie (2.25 final diameter). The stent balloon was then removed. We next intended to attempt dilation of the jailed and occluded diagonal (prior to the stent with protrusion). A BMW universal guidewire was advanced and with some difficulty was positioned distally in the diagonal. However, we were unable to advance a 2.0 x 6 sprinter NC balloon despite multiple attempts. Decision was made to forego further attempts. The balloon and second BMW guidewire were then removed. A 2.5 x 18 mm [place] drug-eluting stent was then advanced and positioned with its distal edge beyond the ostium of the diagonal and its proximal edge with coverage of the in-stent restenosis. This was then deployed at 18 danie. Stent balloon was removed and water resource agent angiography was performed. Guidewire was removed and final angiographic evaluation was performed in orthogonal views. Guide catheter was removed. Limited right femoral artery angiography was performed to evaluate for closure. Findings were favorable, therefore, the femoral arterial sheath was exchanged for a 6 [place]uvian Angio-Seal closure device. This was deployed in the recommended fashion. Patient remained hemodynamically stable and asymptomatic. The left femoral venous sheath was sutured in place to be used for venous access until that time at which IV access can be achieved. Then the venous sheath can be removed. Patient was then transported to the ICU for further workup and management. Coronary angiography findings: AGQ-jocwx-timdzbk vessel bifurcating into LAD and circumflex. Previously placed stent with mild in-stent restenosis. KDW-atxnk-moajyiq and apical vessel. Provides 2 diagonal branches. There is stent from the ostium through the mid LAD. There is in-stent restenosis in the proximal vessel which is mild to moderate and then right before the first diagonal stented segment the LAD segment is 99% to 100% occluded. This also includes the ostium and proximal stented portion of the diagonal. There is no more than BARRIE I flow distal to this bifurcating stent area. The second diagonal is a small vessel. LCx-proximal stent appears patent. The remainder of the circumflex branches have no significant disease. LZP-vsiom-nfgbbhn and dominant. Proximally there is less than 30% stenosis. The mid and distal vessel have mild luminal irregularities. RCA bifurcates into the PDA and posterolateral branches. PLB without disease and PDA has proximal less than 50% stenosis PCI of LAD: 0% residual stenosis in the LAD post PCI Stented diagonal remains occluded but there is left to left collateralization BARRIE-3 flow in the LAD post PCI No evidence of dissection or perforation post PCI Summary: 1. In-stent restenosis plus acute stent thrombosis of prior bifurcation stent. 2. Successful PCI of the LAD with implant of 3 overlapped drug-eluting stents and extension of the distal LAD stent train. Unsuccessful attempt at PTCA of the ostial and proximal diagonal stent. 3. Recommend dual antiplatelet therapy with aspirin 81 mg daily and Brilinta 90 mg p.o. twice daily for minimum of 2 years but preferably indefinitely for complex stenting with in-stent restenosis/thrombosis. 4. Guideline directed medical therapy for secondary prevention of coronary disease to include; low-dose aspirin, high intensity statin therapy, beta- neeru, plus or minus MONIQUE inhibitor/ARB Hemodynamics Rest Ao:: 109/71 mmHg Final Ao: 116/66 mmHg LV: Not performed Recommendations Recommendations: Medical Therapy and/or Counseling and PCI without planned CABG Radiation Exposure (mGy) 2276 mGy, fluoroscopy time 13.1 minutes Contrast (mls) 150 cc Anesthesia 1 mg Versed, 50 mcg fentanyl IV. Start time 1112, end time 1210 Procedural Complication(s) None Disposition ICU I attest to the content of the Intraoperative Record and any orders documented therein. Any exceptions are noted below. [facility] [place] Card Cath Procedure Codes Cardiac Catheterization Procedure 1: Cardiovascular Cath Procedures: 83328 Coronaries Therapeutic Services & Ancillary Procedure 1: Cardiovascular Tx and Anc Procedures: 92639 Insertion Central Venous Catheter (Left femoral) Procedure 2: Cardiovascular Tx and Anc Procedures: 23587 Ultrasonic Guidance Vascular Access Moderate Sedation Procedure 1: Sedation/Anesthesia: 64377 Mod Sedation by the same physician;Init15 Min Child Age 5 & Up (Initial 15 minutes, start time 1112) Procedure 2: Sedation/Anesthesia: 60832 Mod Sedation by the same physician; Ea [id number] Minutes (Additional 43 minutes, end time 1210) Stenting Procedure 1: Cardiovascular Stent Procedures: 60737 Perc transluminal revascularization of acute sub/total occl, aMI (LAD) PG Care Time/CCT Total # of Minutes Spent Total Time Spent with Patient: Total time spent is greater than 50% in coordination of care (as documented) at patient's floor/unit and/or counseling patient:
[2024-07-25] MEDS: IODIXANOL (VISIPAQUE) 320 MG/ML 100ML IV ONE (13:02)
[2024-07-25] MEDS: Heparin IV Adult Wt-Based Standard w/ INITIAL Bolus Protocol IV SCH (13:02)
[2024-07-25] MEDS: HEPARIN 25000 UNIT/500 ML D5W IV ONE (13:02)
[2024-07-25] MEDS: niCARdipine HCL INJ 2.5 MG/ML 10 ML AMP ONE (13:02)
[2024-07-25] MEDS: NITROGLYCERIN/D5W 100MCG/ML 20ML SYR ONE (13:03)
[2024-07-25] MEDS: HEPARIN SOD (PORCINE) 1000 UNIT/ML IV SCH (13:03)
[2024-07-25] MEDS: PHENYLEPHRINE 100MCG/ML 5ML SYR ONE (13:04)
[2024-07-25] MEDS: SODIUM CHLORIDE 0.9% 1,000 ML IV SCH (13:04)
[2024-07-25] MEDS: LIDOCAINE 1% LOCAL 20 ML VIAL ONE (13:04)
--- NOTE | 2024-07-25 13:27 | Critical Care Consultation ---
Date of Consultation July 25, 2024 Assessment & Plan (1) STEMI (ST elevation myocardial infarction): Status post LAD stent stenting x 2. Continue dual antiplatelet therapy per cardiology. Continue high-dose statin. Continue therapy for systolic heart failure including Entresto, Aldactone and metoprolol. Fluids given for IV contrast load. Monitor on telemetry. Likely downgrade out of ICU tomorrow. (2) Hyperglycemia: Currently being managed by the hospitalist service. Maintain euglycemia. History of Present Illness Reason for Consultation: Code heart Attending Physician: Lashon Rees MD History of Present Illness 79-year-old female with history of severe multivessel CAD who earlier in the month had a stage intervention to her left main and LAD. After the second procedure she developed hypotension and was transferred to [facility]. She was having chest pain earlier today and readmitted. She was taken urgently to the [facility] and underwent 2 LAD stents she is feeling better currently. She has a left femoral sheath in place due to poor IV access. She has a left upper extremity ultrasound-guided IV which initially was thought to not be functioning. I performed an ultrasound and the IV appears to be in the vein. We flushed the catheter and I was able to see the saline flush going through the catheter and into the vein. Allergies Allergy/AdvReac Type Severity Reaction Status Date / Time buspirone Allergy Intermediate itchy all Verified 07/09/24 10:18 over and heart palpitaitons with tachycardia levofloxacin Allergy Unknown ITCHY HIVES Verified 07/09/24 10:18 ofloxacin Allergy Unknown RASH Verified 07/09/24 10:18 pioglitazone Allergy Unknown ITCHING Verified 07/09/24 10:18 Sulfa (Sulfonamide Allergy Unknown itchy Verified 07/09/24 10:18 Antibiotics) Home Medications Medication Instructions Recorded Confirmed Type cyanocobalamin (vitamin B-12) 1,000 mcg PO QAM 05/13/19 07/24/24 History 1,000 mcg tablet multivitamin (Multiple Vitamins 1 tab PO QAM 07/01/19 07/24/24 History tablet) levalbuterol HCl 0.63 mg/3 mL 0.63 mg (3 mL) inhalation TID PRN 12/23/19 07/24/24 Rx solution for nebulization shortness of breath or wheezing #360 mL polyethylene glycol 3350 17 17 g PO QAM 05/19/20 07/24/24 History gram/dose oral powder (Miralax) hmpkztiygb-omrhxhy-ezlonqcn 50 1 cap PO Q4H PRN pain #1 cap 07/30/22 07/24/24 Rx mg-325 mg-40 mg capsule ipratropium bromide 21 mcg (0.03 2 spray intranasal BID PRN 03/03/23 07/24/24 History %) nasal spray Congestion atorvastatin 80 mg tablet 80 mg PO QPM #90 tabs 09/24/23 07/24/24 Rx ezetimibe 10 mg tablet (Zetia) 10 mg PO HS 10/06/23 07/24/24 History aspirin 81 mg tablet,delayed 81 mg PO QAM #90 tabs 10/09/23 07/24/24 Rx release nitroglycerin 0.4 mg sublingual 0.3 mg (0.75 x 0.4 mg) sublingual 10/22/23 07/24/24 Rx tablet Q5M PRN chest pain #10 tabs magnesium oxide 400 mg PO DAILY #30 caps 10/31/23 07/24/24 Rx potassium chloride 20 mEq 20 meq PO DAILY #30 tabs 10/31/23 07/24/24 Rx tablet,extended release ticagrelor 90 mg tablet 90 mg PO BID #180 tabs 12/10/23 07/24/24 Rx ondansetron 4 mg disintegrating 4 mg PO Q8H PRN Nausea And 12/24/23 07/24/24 Rx tablet Vomiting #120 tabs cholecalciferol (vitamin D3) 62.5 62.5 mcg PO DAILY 01/19/24 07/24/24 History mcg (2,500 unit) capsule duloxetine 60 mg capsule,delayed 60 mg PO QAM #90 caps 03/02/24 07/24/24 Rx release gabapentin 600 mg tablet 600 mg PO TID #90 tabs 03/02/24 07/24/24 Rx sacubitril 49 mg-valsartan 51 mg 1 tab PO BID #180 tabs 03/02/24 07/24/24 Rx tablet (Entresto) fluticasone propionate 230 2 inh inhalation BID 90 days #3 03/16/24 07/24/24 Rx mcg-salmeterol 21 mcg/actuation Inhalers HFA inhaler (Advair HFA) tiotropium bromide 2.5 2 puff inhalation QAM #3 Inhalers 03/16/24 07/24/24 Rx mcg/actuation mist for inhalation (Spiriva Respimat) dexlansoprazole 60 mg 60 mg PO QAM #90 caps 04/14/24 07/24/24 Rx capsule,biphase delayed release (Dexilant) famotidine 40 mg tablet 40 mg PO BID PRN heartburn #60 tabs 05/26/24 07/24/24 Rx albuterol sulfate 90 mcg/actuation 2 inh inhalation Q4H PRN SOB 05/27/24 07/24/24 History aerosol inhaler (Ventolin HFA) empagliflozin 25 mg tablet 25 mg PO DAILY Coronary Artery 05/27/24 07/24/24 History Disease furosemide 20 mg tablet 20 mg PO QAM 05/27/24 07/24/24 History isosorbide mononitrate 30 mg 30 mg PO .HOLD 05/27/24 07/24/24 History tablet,extended release 24 hr metoprolol succinate 50 mg 50 mg PO QAM 05/27/24 07/24/24 History tablet,extended release 24 hr prucalopride 2 mg tablet 2 mg PO QAM 05/27/24 07/24/24 History (Motegrity) spironolactone 25 mg tablet 25 mg PO QAM 05/27/24 07/24/24 History simethicone 250 mg capsule 250 mg PO BID PRN abdominal 06/23/24 07/24/24 Rx (Phazyme) distention #30 caps valacyclovir 1 gram tablet 2,000 mg (2 x 1 gram) PO BID PRN 06/30/24 07/24/24 Rx cold sores 1 day #4 tabs insulin regular hum U-500 conc 500 See Rx Instructions subcut 07/12/24 07/24/24 Rx unit/mL(3 mL) subcut pen (Humulin .COMPLEX #36 mL R U-500 (Conc) Insulin Kwikpen) alprazolam 0.25 mg tablet 0.25 mg PO DAILY PRN anxiety #30 07/23/24 07/24/24 Rx tabs Patient History Medical History Anxiety with depression Dyslipidemia Mitral regurgitation Gastroparesis COPD (chronic obstructive pulmonary disease) Cerebrovascular disease Hypertension Poorly controlled type 2 diabetes mellitus SIADH (syndrome of inappropriate ADH production) CHF (congestive heart failure) CAD (coronary artery disease) reason for jardiance Lumbar post-laminectomy syndrome Lumbar radiculopathy Paresthesia of right lower extremity Osteoporosis Hx of myocardial infarction 10/2023, x2 History of breast cancer ~2013, sx only Knee osteoarthritis History of fracture Humerus Vitamin D deficiency Chronic sinusitis with recurrent bronchitis Saline breast implant in situ Migraines hx Mixed conductive and sensorineural hearing loss of right ear with restricted hearing of left ear Eustachian tube dysfunction Frequent falls "no current issues" Chronic cough 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 Kohli Surgical History Hx of heart artery stent 10/2023, [place], [facility], x5 stents; f/u dr. west, [address] in 10/2023, [place] [facility] [place] had "few more stents placed, unsure of how many" Hx of cardiac cath History of open reduction and internal fixation (ORIF) procedure left humerus and wrist>hardware intact (2 separate sx) Pacemaker Medtronic, placed 03/2021, follows with [place] cardiology History of carotid endarterectomy right, 2013 History of breast reconstruction Bilateral, Dr. Barr, [employer] Style 410 implant, size unknown History of colonoscopy with polypectomy History of total hysterectomy with bilateral salpingo-oophorectomy (BSO) History of bilateral tubal ligation History of trigger finger x4--bilt hands History of surgery on left wrist plate in place duplicate History of carpal tunnel release of both wrists History of fusion of lumbar spine x4, most recent was 2021, [facility], L2-L4, L4-L5 hardware removal History of fusion of cervical spine ~2012, x3--"cant turn to the right" History of total right knee replacement (TKR) History of bladder suspension procedure History of esophagogastroduodenoscopy (EGD) History of cholecystectomy History of right breast biopsy malignant History of bilateral mastectomy h/o R breast CA-lymph node removal R side History of oral surgery gum sx History of bilateral cataract extraction Abdominoplasty (05/12/13) Family History Son Crohn's disease Sister Ulcerative colitis Family history of diabetes mellitus Mother Family history of diabetes mellitus Brother Family history of diabetes mellitus Other No family history of adverse response to anesthesia No family history of bleeding disorder Social History Smoking Status: Never smoker Second Hand Exposure: No; Do You Dip or Chew Tobacco: No; Hx Alcohol Use: Yes Alcohol type: beer Hx Substance Use: No Preferred Language: Telugu Communication Ability: Effective Visual Impairment: No Limitations Hub Bander Required: No Beliefs That Will Affect Care: None marital status: Current Living Situation: Alone Current Living Situation Comment: LIVES WITH SPOUSE current occupational status: retired current occupation: Retired Feels Safe at Home: Yes Safety Concerns: Feels Safe At This Time Diet: diabetic during the past year weight has: decreased > 10 lbs Dental Care, Regularly: Yes Physical Activity Frequency: Daily Seatbelt Use: always Sunscreen Use: Yes Assistive Devices: Glasses Assistive Devices Comment: dental implants Review of Systems Review of Systems: All systems reviewed & are unremarkable except as noted in HPI & below Physical Exam Physical Exam: Constitutional: Patient appears to be of their stated age. Patient is in no apparent distress. Patient is well-developed. Eyes: Pupils are equal round and reactive to light. Conjunctivae are normal. Anicteric sclera. Ears nose, mouth and throat: Mallampati class 2. Normal posterior oropharynx. Uvula is midline. Neck: Trachea is midline. Visual inspection is normal. Respiratory: Clear to auscultation bilaterally. No use of accessory muscles. No significant clubbing noted. Cardiovascular: Regular rate and rhythm. No murmurs. No edema. Gastrointestinal: Normal bowel sounds, soft, nontender and nondistended. No hepatosplenomegaly noted. Musculoskeletal: No cyanosis. Patient is able to move all extremities. Strength is 5 out of 5 in the upper and lower extremities. Skin: No rashes, warm dry and intact. Neurologic: No obvious focal neurological deficits seen. Psychiatric: Alert and oriented x3 with a euthymic affect. Results & Data Results & Data Vital Signs (Past 12 Hours) Vital Signs Temp Pulse Pulse Resp BP BP Pulse Ox 07/25/24 10:32 82 135/84 07/25/24 10:19 86 135/87 07/25/24 10:18 88 136/88 07/25/24 09:55 92 H 114/72 07/25/24 09:49 114/72 07/25/24 09:25 92 H 18 123/80 99 07/25/24 09:17 07/25/24 07:31 36.7 C 77 17 115/71 99 07/25/24 07:06 71 07/25/24 04:20 106/68 07/25/24 03:38 36.5 C 68 16 91/55 L 97 O2 Del Method O2 Flow Rate 07/25/24 10:32 07/25/24 10:19 07/25/24 10:18 07/25/24 09:55 07/25/24 09:49 07/25/24 09:25 Room Air 07/25/24 09:17 Nasal Cannula 2 07/25/24 07:31 Room Air 07/25/24 07:06 07/25/24 04:20 07/25/24 03:38 Room Air Coding Level of Care Code 86244 IN/OBS CONSULT LVL 4,60M Diagnoses STEMI (ST elevation myocardial infarction) I21.3 Hyperglycemia R73.9
--- NOTE | 2024-07-25 15:24 | Pharmacy Report ---
Pharmacy Glycemic Short Note 2 - Date of Service July 25, 2024 - Glycemic Short BSG Results (Last 24 hours): 07/24/24 07/24/24 07/25/24 18:02 22:27 02:08 POC Glucose 165 H 206 H 165 H 07/25/24 07:26 POC Glucose 143 H OUTPATIENT ANTIDIABETIC REGIMEN: * U-500 insulin 15 units TID * Jardiance 25 mg PO daily * HbA1c = 07/01/24 ASSESSMENT: * 79 y/o F admitted for chest pain/NSTEMI. She has history of Type 2 diabetes managed on U-500 insulin at home- per patient report she was taking U-500 insulin 70 units BID at home. * Patient is known to glycemic service from previous admissions. For basal insulin she would get NPH insulin BID with meals. * Yesterday she did receive 10 units of basal Lantus at night. 10 units of NPH was ordered this morning but patient was made NPO and had cardiac cath, there fore this was not given. Ordered 10 units of NPH with dinner. Holding Lantus. * Novolog parameters ordered the same as previous admissions. PLAN FOR INPATIENT GLYCEMIC CONTROL: * Hold outpatient oral diabetes medications * Basal insulin * Lantus 10 units SC x 1 dose last night. * NPH 10 units SC at dinner. Re-assess dosing tomorrow AM. * Bolus insulin * NovoLog per scale ACHS or Q6hrs while NPO * Goal Range: Low 110 mg/dL - High 140 mg/dL * Correction Factor: 20 mg/dL/unit * Nutritional / Prandial insulin per carb ratio of 1 unit per 7 grams CHO consumed
[2024-07-25] MEDS ORDERED: STAT IV Infusion **Titration per Protocol STA (17:52)
[2024-07-25] MEDS: NOREPINEPHRINE/D5W 4 MG/250 ML IV ONE (18:21)
[2024-07-25] MEDS: NOREPINEPHRINE/D5W 4 MG/250 ML PLCT IV SCH (18:22)
[2024-07-26 06:29] LABS: Basophils # (auto) 0.05 K/uL (0.00-0.20); Basophils % (auto) 0.6 %; Eosinophils # (auto) 0.15 K/uL (0.00-0.50); Eosinophils % (auto) 1.7 %; Hematocrit (blood only) 42.5 % (37.0-47.0); Hemoglobin 13.7 g/dl (12.0-16.0); Immature Granulocytes # (auto) 0.03 K/uL (0.01-0.20); Immature Granulocytes % (auto) 0.3 %; Lymphocytes # (auto) 2.05 K/uL (1.20-3.40); Lymphocytes % (auto) 22.9 %; Mean Corpuscular Hemoglobin 28.5 pg (25.0-34.0); Mean Corpuscular Hgb Conc 32.2 g/dL (32.0-36.0); Mean Corpuscular Volume 88.4 fL (80.0-100.0); Mean Platelet Volume 10.3 fL (9.4-12.4); Monocytes # (auto) 0.77 K/uL (0.11-0.59); Monocytes % (auto) 8.6 %; Neutrophils # (auto) 5.91 K/uL (1.40-6.50); Neutrophils % (auto) 65.9 %; Platelet Count 303 K/uL (130-400); RDW Coefficient of Variation 14.4 % (11.5-14.5); RDW Standard Deviation 46.2 fL (36.4-46.3); Red Blood Count 4.81 M/uL (4.20-5.40); White Blood Count 8.96 K/ul (4.8-10.8)
[2024-07-26 06:41] LABS: BUN Creatinine Ratio 23.3 (10-20); Calcium 8.4 mg/dl (8.6-10.3); Creatinine Clr Calc Pharmacy 62.4 ml/min; Est GFR (African American) 90.8 ml/min; Est GFR (Non-African American) 78.3 ml/min; Phosphorus 3.4 mg/dl (2.5-4.9); Potassium 4.3 mmol/L (3.5-5.1)
[2024-07-26 06:50] LABS: Troponin I High Sensitivity 2377.5 pg/ml (0-14)
[2024-07-26] MEDS: FAMOTIDINE 40 MG TABLET PO PRN (08:28)
[2024-07-26] MEDS: INSULIN HUMAN NPH SC SCH ×2 (08:42→17:07)
--- NOTE | 2024-07-26 09:32 | Hospitalist Progress Note ---
Date of Service July 26, 2024 Assessment & Plan (1) STEMI (ST elevation myocardial infarction): Plan: 79 y/o with HFrEF and severe multivessel CAD required 5 stents Oct 2023 at time of NSTEMI. Some done here by Dr. Javier and transferred to [facility], she says she declined CABG but more stents were placed. Admitted 07/24 with chest pain, initial EKG vpaced and troponins low (20-30s), following AM had recurrent chest pain and EKG consistent with STEMI, emergently went to cardiovascular lab director with Dr. Rivera with findings of proximal LAD 99% in-stent restenosis, mid LAD 99% stenosis, successful PCI performed. TTE 07/25 prior to PCI - LV systolic fxn moderately to severely reduced EF 25- 30%, septal/inferior wall/apical akinesis, VSD suggested in some views In ICU with mild hypotension following PCI, on 0.2 mcg norepi this am -metoprolol, Entresto, diuretics held because of hypotension -continue ASA, Brilinta, statin -AM EKG pending Has HFrEF wth EF 30-35% improved to 40-45% on most recent TTE, back down to 25- 30% does not appear volume overloaded -meds held as above for hypotension Usual cardiac meds: metoprolol XL 50 mg, ASA, brilinta, entresto, empaglifozin, atorvastatin 80, zetia, furosemide 20, brando 25 Imdur tried this spring as antianginal but caused headache? (2) CAD (coronary artery disease): Plan: Severe multivessel CAD. see above (3) HFrEF (heart failure with reduced ejection fraction): Plan: No current acute exacerbation suspected see above (4) Poorly controlled type 2 diabetes mellitus: Plan: HbA1C 12.5 - nurse educator consulted Patient prescribed U-500 15 units TID although patient reports she is taking 70 units BID Will dose insulin base on prior hospitalization given this significant discrepancy -continue glargine and premeal/correctional aspart Consulted pharmacy for ongoing diabetes control Plan VTE Prophylaxis - SQ heparin bid, also on DAPT Disposition - ICU until BP improved and off pressors I updated her son at bedside 07/25 Admission and Anticipated Discharge Date Admission Date: July 25, 2024 Subjective Having intermittent twinges of L chest pain (lasting only seconds) No shortness of breath. Overall feels much better. Both groin access sites doing well, no leg pain or swelling Hypotensive following PCI has been on low dose of norepi overnight Physical Exam 2 Physical Exam: PHYSICAL EXAMINATION Last 24h vital signs reviewed, see documentation in flowsheet General: looks better, much more calm and comfortable, color is better HEENT: Normocephalic, atraumatic, pupils round and equal, sclerae anicteric, no conjunctival injection, moist mucus membranes Lungs: Normal respiratory effort. Clear to auscultation bilaterally. No RRW Heart: Regular rate and rhythm, no murmurs. No JVD. Abdomen: Soft, nontender, nondistended. Bowel sounds present. Extremities: Warm, dry, well-perfused. mild lower extremity edema. Bilateral groin access sites c/d/i, no obvious hematomas no bruits Neuro: Alert and oriented x 4, face symmetric, moves 4 extremities well Psych: normal affect and behavior Results & Data Results & Data Vital Signs (Past 12 Hours) Vital Signs Temp Pulse Resp BP Pulse Ox O2 Del Method 07/26/24 09:05 99 H 27 H 99 Room Air 07/26/24 09:01 102/63 07/26/24 08:41 97 H 19 98 07/26/24 08:32 96 H 15 96 Room Air 07/26/24 08:30 97/66 L 07/26/24 08:23 100 H 18 98 07/26/24 08:20 97 H 18 95 07/26/24 08:15 105/69 07/26/24 08:11 97 H 19 97 07/26/24 08:02 99 H 33 H 98 07/26/24 08:00 93/61 L 07/26/24 08:00 93/61 L 07/26/24 08:00 93/61 L 07/26/24 08:00 93/61 L 07/26/24 07:59 97 H 16 96 07/26/24 07:52 92 H 07/26/24 07:47 101 H 17 86 L 07/26/24 07:45 97/74 L 07/26/24 07:44 98 H 21 99 07/26/24 07:44 Room Air 07/26/24 07:35 94 H 15 99 07/26/24 07:08 93 H 15 98 07/26/24 07:01 88/66 L 07/26/24 07:00 92 H 18 98 08/26/24 06:53 95 H 20 98 07/26/24 06:38 117/81 07/26/24 06:31 98/69 L 07/26/24 06:30 80 19 98/69 L 98 Nasal Cannula 07/26/24 06:27 79 18 98 07/26/24 06:18 81 18 99 07/26/24 05:48 82 13 99/62 L 94 07/26/24 05:00 78 17 88/53 L 96 07/26/24 04:30 78 12 80/56 L 98 07/26/24 04:06 82 12 114/68 98 07/26/24 03:30 79 13 100/64 98 07/26/24 03:00 77 14 108/73 98 07/26/24 03:00 36.5 C 79 15 108/73 97 07/26/24 02:30 80 12 99/64 L 98 07/26/24 02:00 77 15 120/75 97 07/26/24 01:30 79 14 87/56 L 98 07/26/24 01:00 75 14 110/68 99 07/26/24 00:30 100/72 99 07/26/24 00:00 88 15 94/63 L 99 07/25/24 23:33 77 22 97 07/25/24 23:30 81 16 99/70 L 98 07/25/24 23:18 79 17 96 07/25/24 23:12 75 16 97 07/25/24 23:00 101/63 07/25/24 23:00 72 15 101/63 97 07/25/24 22:57 76 07/25/24 22:51 36.4 C L 76 16 101/63 97 07/25/24 22:00 83 19 110/76 98 07/25/24 21:30 77 16 127/77 98 Laboratory Results 07/26/24 06:04 07/26/24 06:04 Trop peak 2400 --> 2377 PG Care Time/CCT Total # of Minutes Spent Total Time Spent with Patient: Total time spent is greater than 50% in coordination of care (as documented) at patient's floor/unit and/or counseling patient: Coding Level of Care Code 42818 SUB INP/OBS CARE 2/35MIN Diagnoses STEMI (ST elevation myocardial infarction) I21.3 CAD (coronary artery disease) I25.10 HFrEF (heart failure with reduced ejection fraction) I50.20 Poorly controlled type 2 diabetes mellitus E11.65
--- NOTE | 2024-07-26 10:43 | Critical Care Progress Note ---
Date of Service July 26, 2024 Assessment & Plan (1) STEMI (ST elevation myocardial infarction): Plan: Status post LAD stent stenting x 2. Continue dual antiplatelet therapy per cardiology. Continue high-dose statin. Holding therapy for systolic heart failure including Entresto, Aldactone and metoprolol due to hypotension. Fluids given for IV contrast load. Monitor on telemetry. (2) Hyperglycemia: Plan: Currently being managed by the hospitalist service. Maintain euglycemia. (3) Hypotension: Plan: Hypotension resolving now off pressors. Stable for downgrade. Will do PLR to eval for fluid responsiveness. Admission and Anticipated Discharge Date Admission Date: July 25, 2024 Subjective Off vasopressors this morning. In good spirits. No acute issues. Review of Systems Review of Systems: All systems reviewed & are unremarkable except as noted in HPI & below Physical Exam Physical Exam: Constitutional: Patient appears to be of their stated age. Patient is in no apparent distress. Patient is well-developed. Eyes: Pupils are equal round and reactive to light. Conjunctivae are normal. Anicteric sclera. Ears nose, mouth and throat: Mallampati class 2. Normal posterior oropharynx. Uvula is midline. Neck: Trachea is midline. Visual inspection is normal. Respiratory: Clear to auscultation bilaterally. No use of accessory muscles. No significant clubbing noted. Cardiovascular: Regular rate and rhythm. No murmurs. No edema. Gastrointestinal: Normal bowel sounds, soft, nontender and nondistended. No hepatosplenomegaly noted. Musculoskeletal: No cyanosis. Patient is able to move all extremities. Strength is 5 out of 5 in the upper and lower extremities. Skin: No rashes, warm dry and intact. Neurologic: No obvious focal neurological deficits seen. Psychiatric: Alert and oriented x3 with a euthymic affect. Results & Data Results & Data Vital Signs (Past 12 Hours) Vital Signs Temp Pulse Resp BP Pulse Ox O2 Del Method 07/26/24 09:05 99 H 27 H 99 Room Air 07/26/24 09:01 102/63 07/26/24 08:41 97 H 19 98 07/26/24 08:32 96 H 15 96 Room Air 07/26/24 08:30 97/66 L 07/26/24 08:23 100 H 18 98 07/26/24 08:20 97 H 18 95 07/26/24 08:15 105/69 07/26/24 08:11 97 H 19 97 07/26/24 08:02 99 H 33 H 98 07/26/24 08:00 93/61 L 07/26/24 08:00 93/61 L 07/26/24 08:00 93/61 L 07/26/24 08:00 93/61 L 07/26/24 07:59 97 H 16 96 07/26/24 07:52 92 H 07/26/24 07:47 101 H 17 86 L 07/26/24 07:45 97/74 L 07/26/24 07:44 98 H 21 99 07/26/24 07:44 Room Air 07/26/24 07:35 94 H 15 99 07/26/24 07:08 93 H 15 98 07/26/24 07:01 88/66 L 07/26/24 07:00 92 H 18 98 07/26/24 06:53 95 H 20 98 07/26/24 06:38 117/81 07/26/24 06:31 98/69 L 07/26/24 06:30 80 19 98/69 L 98 Nasal Cannula 07/26/24 06:27 79 18 98 07/26/24 06:18 81 18 99 07/26/24 05:48 82 13 99/62 L 94 07/26/24 05:00 78 17 88/53 L 96 07/26/24 04:30 78 12 80/56 L 98 07/26/24 04:06 82 12 114/68 98 07/26/24 03:30 79 13 100/64 98 07/26/24 03:00 77 14 108/73 98 07/26/24 03:00 36.5 C 79 15 108/73 97 07/26/24 02:30 80 12 99/64 L 98 07/26/24 02:00 77 15 120/75 97 07/26/24 01:30 79 14 87/56 L 98 07/26/24 01:00 75 14 110/68 99 07/26/24 00:30 100/72 99 07/26/24 00:00 88 15 94/63 L 99 07/25/24 23:33 77 22 97 07/25/24 23:30 81 16 99/70 L 98 07/25/24 23:18 79 17 96 07/25/24 23:12 75 16 97 07/25/24 23:00 101/63 07/25/24 23:00 72 15 101/63 97 07/25/24 22:57 76 07/25/24 22:51 36.4 C L 76 16 101/63 97 Coding Level of Care Code 29223 SUB INP/OBS CARE 2/35MIN Diagnoses STEMI (ST elevation myocardial infarction) I21.3 Hyperglycemia R73.9 Hypotension I95.9
[2024-07-26] MEDS: ACETAMINOPHEN 325 MG TAB PO PRN (11:03)
--- NOTE | 2024-07-26 12:56 | Pharmacy Report ---
Pharmacy Glycemic Short Note 2 - Date of Service July 26, 2024 - Glycemic Short BSG Results (Last 24 hours): 07/25/24 07/25/24 07/25/24 15:23 16:21 19:35 Glucose POC Glucose 153 H 170 H 150 H 07/26/24 07/26/24 07/26/24 06:04 07:16 10:54 Glucose 179 H POC Glucose 208 H 176 H OUTPATIENT ANTIDIABETIC REGIMEN: * U-500 insulin 15 units TID (patient reports taking 70 units BID) * Jardiance 25 mg PO daily * HbA1c = 07/01/24 ASSESSMENT: 07/26: * Received 29 units of insulin yesterday, 10 of which were NPH. BSGs were: [phone] mg/dL. Continues on Jardiance 25 mg daily. * Fasting was 208 mg/dL this AM. Will increase NPH as PO intake is good. This will be based on previous admission data. * No change to Novolog today given significant increase in NPH. RN reports patient asking to snack often. 07/25: * 79 y/o F admitted for chest pain/NSTEMI. She has history of Type 2 diabetes managed on U-500 insulin at home- per patient report she was taking U-500 insulin 70 units BID at home. * Patient is known to glycemic service from previous admissions. For basal insulin she would get NPH insulin BID with meals. * Yesterday she did receive 10 units of basal Lantus at night. 10 units of NPH was ordered this morning but patient was made NPO and had cardiac cath, therefore this was not given. Ordered 10 units of NPH with dinner. Holding Lantus. * Novolog parameters ordered the same as previous admissions. PLAN FOR INPATIENT GLYCEMIC CONTROL: * Jardiance 25 mg PO AM * Basal insulin * NPH 20 units SC with breakfast * NPH 15 units SC with dinner * Bolus insulin * NovoLog per scale ACHS or Q6hrs while NPO * Goal Range: Low 110 mg/dL - High 140 mg/dL * Correction Factor: 20 mg/dL/unit * Nutritional / Prandial insulin per carb ratio of 1 unit per 7 grams CHO consumed
[2024-07-26] MEDS: ONDANSETRON 4 MG OD TAB PO PRN (14:50)
[2024-07-26] MEDS: CARBOHYDRATES FOR HYPOGLYCEMIA PO PRN (15:02)
[2024-07-26] MEDS: GLUCOSE 40% GEL 15 GM TUBE PO PRN (15:03)
[2024-07-26] MEDS ORDERED: INSULIN HUMAN NPH SC SCH (16:30)
--- NOTE | 2024-07-26 17:14 | Cardiology Progress Note ---
Date of Service July 26, 2024 Assessment & Plan (1) Non-ST elevation WI (NSTEMI): Plan: --ISR/Late LAD stent thrombosis 07/2024 -- 3 additional KRISH to LAD. 10/15/2023 Additional KRISH to ostial left main, and KRISH to proximal LAD, along with aspiration thrombectomy of LCx stent at [facility] in the setting of heart failure Late presenting NSTEMI 10/06/2023ES to LAD. In hospital staged PCI with additional KRISH to proximal Cx and KRISH to occluded jailed diagonal. 2. HFrEF/ischemic cardiomyopathyEF 30-35% 3. Poorly controlled Type 2 diabetes 4. AV block post dual-chamber PPM 5. History of cerebrovascular disease with prior CVA 6. Spinal stenosis, neurogenic claudication, recurrent fallsprior injection, surgery previously considered Stable post WI and PCI with 3 new additional KRISH to LAD yesterday Chest pain this morning noncardiac. Electrically stable. No signs of heart failure on exam Borderline blood pressures, now off pressors. No significant access site complications. Home HF regimen still on hold Agree with gentle IV fluids Resume low-dose metoprolol when able, possible tomorrow morning Continue DAPT with aspirin, ticagrelor Continue current statin Do not feel she would be a good LifeVest candidate From a cardiac standpoint okay with transfer to telemetry. Appreciate ICU and hospital medicine care. Admission and Anticipated Discharge Date Admission Date: July 25, 2024 Subjective Seen late this morning. Feeling well. Sitting up eating lunch. Had brief left-sided chest pain earlier in the day, different than what she had with WI yesterday. ECG unchanged. Telemetry reviewedno events. Review of Systems Review of Systems: All systems reviewed & are unremarkable except as noted in HPI & below Physical Exam Physical Exam: General: Comfortable HEENT: Sclerae anicteric Lungs: Clear to auscultation bilaterally Cardiac: Regular rate and rhythm, no murmurs. Vascular: Ecchymosis bilaterally at common femoral access sites. No hematoma Abdomen: Soft, nontender Extremities: Well perfused, no peripheral edema Neuro: Nonfocal Psych: Alert orient x3, normal affect and mood Results & Data Vital Signs (Past 12 Hours) Vital Signs Temp Pulse Resp BP Pulse Ox O2 Del Method 07/26/24 15:30 85 21 07/26/24 15:03 82 22 07/26/24 15:00 92/54 L 08/26/24 14:42 85 16 07/26/24 14:30 94/44 L 07/26/24 14:30 85 17 07/26/24 14:01 118/102 H 07/26/24 14:00 85 18 07/26/24 13:33 88 17 07/26/24 13:31 99/46 L 07/26/24 12:54 94 H 19 07/26/24 12:36 102 H 18 07/26/24 12:01 133/78 07/26/24 12:00 103 H 18 07/26/24 11:45 120 H 22 07/26/24 11:44 98.2 F 07/26/24 11:35 129/97 07/26/24 11:18 98 H 14 97 07/26/24 11:15 112/62 07/26/24 11:15 98 H 19 98 07/26/24 11:09 100 H 19 98 Room Air 07/26/24 11:00 94/72 L 07/26/24 10:51 98 H 15 99 07/26/24 10:46 96/80 L 07/26/24 10:46 96/80 L 07/26/24 10:36 101 H 18 97 07/26/24 10:30 116/89 07/26/24 10:16 133/85 07/26/24 10:00 107/61 07/26/24 10:00 107/61 07/26/24 09:51 102 H 16 100 07/26/24 09:46 104/75 07/26/24 09:46 104/75 07/26/24 09:46 104/75 07/26/24 09:40 108/73 07/26/24 09:40 108/73 07/26/24 09:39 99 H 19 97 Room Air 07/26/24 09:33 99 H 13 98 07/26/24 09:31 103/74 07/26/24 09:11 95 H 25 H 100 07/26/24 09:05 99 H 27 H 99 Room Air 07/26/24 09:01 102/63 07/26/24 08:41 97 H 19 98 07/26/24 08:32 96 H 15 96 Room Air 07/26/24 08:30 97/66 L 07/26/24 08:23 100 H 18 98 08/26/24 08:20 97 H 18 95 07/26/24 08:15 105/69 07/26/24 08:11 97 H 19 97 07/26/24 08:02 99 H 33 H 98 07/26/24 08:00 93/61 L 07/26/24 08:00 93/61 L 07/26/24 08:00 93/61 L 07/26/24 08:00 93/61 L 07/26/24 07:59 97 H 16 96 07/26/24 07:52 92 H 07/26/24 07:47 101 H 17 86 L 07/26/24 07:45 97/74 L 07/26/24 07:44 98 H 21 99 07/26/24 07:44 Room Air 07/26/24 07:35 94 H 15 99 07/26/24 07:08 93 H 15 98 07/26/24 07:01 88/66 L 07/26/24 07:00 92 H 18 98 07/26/24 06:53 95 H 20 98 07/26/24 06:38 117/81 07/26/24 06:31 98/69 L 07/26/24 06:30 80 19 98/69 L 98 Nasal Cannula 07/26/24 06:27 79 18 98 07/26/24 06:18 81 18 99 07/26/24 05:48 82 13 99/62 L 94 PG Care Time/CCT Total # of Minutes Spent Total Time Spent with Patient: Total time spent is greater than 50% in coordination of care (as documented) at patient's floor/unit and/or counseling patient: Coding Level of Care Code 15651 SUB INP/OBS CARE 3/50MIN Diagnoses Non-ST elevation WI (NSTEMI) I21.4
--- NOTE | 2024-07-26 18:15 | Communication Note ---
Date of Service: July 26, 2024 Significant concerns raised by family and outpatient providers, decisional capacity assessment warranted. -has been communicating with multiple scammers by phone apps and sending thousands of dollars to them. Scams explained and Apps deleted at last primary care visit, but she reinstalled them later same day and persisted. Also see last endo clinic note Dr. Wilkerson -in stent restenosis <1 year after PCI, she told me today shes taking all doses of her aspirin, brilinta -family reported she's been inconsistent with her meds, skipping doses despite them filling her medisets -was unable to give a coherent explanation of her insulin doses at time of this admission -son reported she is still paying her bills on time -she acknowledges a lot of psychosocial stress recently, including recent divorce B12 and TSH recenty normal. Ordered B1 level Requested ST cognitive eval, psychiatric eval
[2024-07-26] MEDS: HEPARIN SOD 5,000 UNIT/0.5 ML VIAL SQ SCH (20:45)
[2024-07-27 05:39] LABS: BUN Creatinine Ratio 25.4 (10-20); Calcium 8.5 mg/dl (8.6-10.3); Est GFR (African American) 96.9 ml/min; Est GFR (Non-African American) 83.6 ml/min
[2024-07-27] MEDS: PRUCALOPRIDE SUCCINATE PO SCH (08:28)
--- NOTE | 2024-07-27 08:39 | Pharmacy Report ---
Pharmacy Glycemic Short Note 2 - Date of Service July 27, 2024 - Glycemic Short BSG Results (Last 24 hours): 07/26/24 07/26/24 07/26/24 10:54 14:56 15:16 Glucose POC Glucose 176 H 60 L* 104 H 07/26/24 07/26/24 07/27/24 16:18 19:50 04:29 Glucose 158 H POC Glucose 199 H 158 H 07/27/24 07:31 Glucose POC Glucose 190 H OUTPATIENT ANTIDIABETIC REGIMEN: * U-500 insulin 15 units TID (patient reports taking 70 units BID) * Jardiance 25 mg PO daily * HbA1c = 12.5% (07/01/24) ASSESSMENT: 07/27: * Stressors stable. Hypoglycemia at dinner noted yesterday with AM fasting hyperglycemia noted this AM * Will reduce NPH w breakfast and increase NPH with dinner * Will slightly loosen carb ratio as this too may have contributed to hypoglycemia at dinner (increased CHO intake at lunch noted) * Empagliflozin is being continued as an inpatient due to co-indication for CHF 07/26: * Received 29 units of insulin yesterday, 10 of which were NPH. BSGs were: [phone] mg/dL. Continues on Jardiance 25 mg daily. * Fasting was 208 mg/dL this AM. Will increase NPH as PO intake is good. This will be based on previous admission data. * No change to Novolog today given significant increase in NPH. RN reports patient asking to snack often. 07/25: * 79 y/o F admitted for chest pain/NSTEMI. She has history of Type 2 diabetes managed on U-500 insulin at home- per patient report she was taking U-500 insulin 70 units BID at home. * Patient is known to glycemic service from previous admissions. For basal insulin she would get NPH insulin BID with meals. * Yesterday she did receive 10 units of basal Lantus at night. 10 units of NPH was ordered this morning but patient was made NPO and had cardiac cath, therefore this was not given. Ordered 10 units of NPH with dinner. Holding Lantus. * Novolog parameters ordered the same as previous admissions. PLAN FOR INPATIENT GLYCEMIC CONTROL: * Empagliflozin 25 mg PO AM * Basal insulin * NPH 15 units SC with breakfast * NPH 15 units SC with dinner * Bolus insulin * NovoLog per scale ACHS or Q6hrs while NPO * Goal Range: Low 110 mg/dL - High 140 mg/dL * Correction Factor: 20 mg/dL/unit * Nutritional / Prandial insulin per carb ratio of 1 unit per 8 grams CHO consumed
[2024-07-27] MEDS: INSULIN HUMAN NPH SC SCH (09:42)
[2024-07-27] MEDS: INSULIN ASPART PER UNIT CHARGE SC ONE (12:54)
[2024-07-27] MEDS ORDERED: INSULIN HUMAN NPH SC SCH (16:30)
--- NOTE | 2024-07-27 21:07 | Hospitalist Progress Note ---
Date of Service July 27, 2024 Assessment & Plan (1) STEMI (ST elevation myocardial infarction): Plan: 79 y/o with HFrEF and severe multivessel CAD required 5 stents Oct 2023 at time of NSTEMI. Initial cath 10/06/[address] Javier s/p KRISH to LAD. Then underwent additional staged PCI with KRISH to proximal Cx and KRISH to occluded jailed diagonal. 10/15/2023 -- additional KRISH to ostial left main, and KRISH to proximal LAD, along with aspiration thrombectomy of LCx stent at [facility] in the setting of heart failure. Admitted here on 07/24 with chest pain, initial EKG vpaced and troponins low (20- 30s), but 07/25 AM had recurrent chest pain and EKG consistent with STEMI. s/p emergent cath 07/25/[address] Rivera with following findings -- Coronary Anatomy Dominant: Right Left Main (% Stenosis): Normal (Stent with diffuse mild less than 20% in-stent restenosis) LAD (% Stenosis): Proximal (Mild in-stent restenosis followed by 99% in-stent restenosis/thrombosis) and Mid (Stent 99% occluded) D1 (% Stenosis): Ostial (Stent 99% occluded) Circumflex (% Stenosis): Proximal (Stent patent) OM1 (% Stenosis): Normal RCA (% Stenosis): Proximal (30%) R PDA (% Stenosis): Proximal (Up to 50%) R PL1 (% Stenosis): Normal s/p 3 stents to the LAD lesion. Unsuccessful attempt at PTCA of the ostial and proximal diagonal stent. Echo 07/25 - EF 25-30%, septal/inferior wall/apical akinesis, VSD suggested in some views. Required post-cath pressors --> now off such. Most cardiac meds thus far held due to low BP. Remains on ASA, Brilinta, statin. Usual cardiac meds: metoprolol XL 50 mg, ASA, brilinta, entresto, empaglifozin, atorvastatin 80, zetia, furosemide 20, spironolactone 25. Will resume meds as tolerated likely starting with metoprolol - defer to cardiology. (2) CAD (coronary artery disease): Plan: see above in #1 (3) HFrEF (heart failure with reduced ejection fraction): Plan: chronic systolic CHF 2nd to ischemic cardiomyopathy prior EF 30-40% now worse - 25-30% - in the setting of her acute CO thus far remains compensated on exam ultimately will need her BB, Entresto, diuretics, etc resumed as tolerated (4) Poorly controlled type 2 diabetes mellitus: Plan: HbA1C 12.5% Follows with [facility] DM clinic patient desires Dexcom & Insulin pump will get her back to Dr Rhea stroud post-discharge Patient prescribed U-500 15 units TID although patient reports she is taking 70 units BID?? 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 This is pathologically indeterminant, but new as compared to the 04/23/2023 PET examination. No additional similar appearing bony lesions are seen and this is likely on a degenerative basis. Given the history of breast cancer metastatic disease could appear similar. In the appropriate clinical setting infection would also be impossible to exclude. Clinical correlation will be essential." consider dedicated MRI lumbar spine Plan VTE Prophylaxis - SQ heparin bid appreciate ICU & cardiology assistance will ask for PT evaluation to ensure safe for home when medically ready Admission and Anticipated Discharge Date Admission Date: July 25, 2024 Subjective patient mentions multiple issues during the visit including - 1. had mild chest discomfort this am while laying down; transient, self- resolved, and has not recurred since that time; felt different than her CO pain 2. stress related to speech therapy & psych performing cognitive evals; she states "I have 9 doctors, I can remember all of them; I can remember all of my different medicines and insulin - I just miss them on occasion; I can take care of all of my bills" 3. wants a Dexcom and insulin pump; follows with Dr Wilkerson at the DM clinic 4. denies any dyspnea 5. appetite is poor; blames it on the food at the hospital - dislikes the taste 6. chronic headaches - frontal - since last year about the time of her NSTEMI and multiple heart caths; takes tylenol for such prn with relief tele overnight wnl of note - speech therapy attempted to perform cognitive evaluation but patient declined such she did speak with psychiatry but was not happy about such Review of Systems Review of Systems: cv - no pleuritic pain, no substernal pain, no orthopnea, no edema pulm - no dyspnea GI - no N/V Physical Exam Physical Exam: gen - NAD, lying flat in bed comfortably neck - no JVD mouth - MMM heart - RRR, s1 s2, no murmur lungs - CTA b/l abd - soft NT ND BS+ ext - no edema, pulses 2+ b/l psych - a/o x 3 Results & Data Results & Data Vital Signs (Past 12 Hours) Vital Signs Temp Pulse Resp BP Pulse Ox O2 Del Method 07/27/24 19:10 36.4 C L 103 H 18 134/85 96 Room Air 07/27/24 16:44 37.2 C 102 H 12 131/87 98 Room Air 07/27/24 11:30 36.4 C L 101 H 18 98/70 L 96 Room Air PG Care Time/CCT Total # of Minutes Spent Total Time Spent with Patient: Total time spent is greater than 50% in coordination of care (as documented) at patient's floor/unit and/or counseling patient: Coding Level of Care Code 35559 SUB INP/OBS CARE 3/50MIN Diagnoses STEMI (ST elevation myocardial infarction) I21.3 CAD (coronary artery disease) I25.10 HFrEF (heart failure with reduced ejection fraction) I50.20 Poorly controlled type 2 diabetes mellitus E11.65 COPD (chronic obstructive pulmonary disease) J44.9 Cerebrovascular disease I67.9 Pacemaker Z95.0 Cognitive impairment R41.[address] scan, lumbar spine R93.7
--- NOTE | 2024-07-27 22:21 | Cardiology Progress Note ---
Date of Service July 27, 2024 Assessment & Plan (1) Non-ST elevation NV (NSTEMI): Plan: --ISR/Late LAD stent thrombosis 07/2024 -- 3 additional KRISH to LAD. 10/15/2023 Additional KRISH to ostial left main, and KRISH to proximal LAD, along with aspiration thrombectomy of LCx stent at [facility] in the setting of heart failure Late presenting NSTEMI 10/06/2023ES to LAD. In hospital staged PCI with additional KRISH to proximal Cx and KRISH to occluded jailed diagonal. 2. HFrEF/ischemic cardiomyopathyEF 30-35% 3. Poorly controlled Type 2 diabetes 4. AV block post dual-chamber PPM 5. History of cerebrovascular disease with prior CVA 6. Spinal stenosis, neurogenic claudication, recurrent fallsprior injection, surgery previously considered Stable post NV and PCI with 3 new additional KRISH to LAD 2 days ago. Blood pressures stable No significant access site complications. Resume metoprolol tomorrow. Remainder of HF regimen as BP allows Continue DAPT with aspirin, ticagrelor Continue current statin Do not feel she would be a good LifeVest candidate Appreciate ICU and hospital medicine care. Admission and Anticipated Discharge Date Admission Date: July 25, 2024 Subjective Feeling Ok this afternoon. Brief episodes of chest pain while lying down, different than NV pain. No shortness of breath. Reports significant stress around family visits and talking with psychiatric liason. Telemetry reviewedno events. Review of Systems Review of Systems: All systems reviewed & are unremarkable except as noted in HPI & below Physical Exam Physical Exam: General: Comfortable HEENT: Sclerae anicteric Lungs: Clear to auscultation bilaterally Cardiac: Regular rate and rhythm, no murmurs. Vascular: Ecchymosis bilaterally at common femoral access sites. No hematoma Abdomen: Soft, nontender Extremities: Well perfused, no peripheral edema Neuro: Nonfocal Psych: Alert orient x3, normal affect and mood Results & Data Vital Signs (Past 12 Hours) Vital Signs Temp Pulse Resp BP Pulse Ox O2 Del Method 07/27/24 19:10 97.5 F L 103 H 18 134/85 96 Room Air 07/27/24 16:44 99.0 F 102 H 12 131/87 98 Room Air 07/27/24 11:30 97.5 F L 101 H 18 98/70 L 96 Room Air PG Care Time/CCT Total # of Minutes Spent Total Time Spent with Patient: Total time spent is greater than 50% in coordination of care (as documented) at patient's floor/unit and/or counseling patient: Coding Level of Care Code 43910 SUB INP/OBS CARE 2MIN Diagnoses Non-ST elevation NV (NSTEMI) I21.4
--- NOTE | 2024-07-28 05:38 | Electrocardiogram Report ---
Test Reason : Blood Pressure : */* mmHG Vent. Rate : 97 BPM Atrial Rate : 97 BPM P-R Int : 184 ms QRS Dur : 96 ms QT Int : 374 ms P-R-T Axes : 71 -60 105 degrees QTcB Int : 474 ms Normal sinus rhythm Left anterior fascicular block Abnormal ECG When compared with ECG of 25-Jul-2024 09:22, Left anterior fascicular block is now Present Criteria for Inferior infarct are no longer Present T wave inversion no longer evident in Inferior leads T wave inversion now evident in Lateral leads ST no longer elevated in Inferior leads Confirmed by Davie Rascon ([id number]) on 07/28/2024 5:38:45 AM Referred By: REFERRED SELF Confirmed By: Davie Rascon
[2024-07-28 05:43] LABS: BUN Creatinine Ratio 26.2 (10-20); Calcium 8.3 mg/dl (8.6-10.3); Chol HDL Ratio 2.8 (0-5); Creatinine Clr Calc Pharmacy 70.2 ml/min; Est GFR (African American) 97.9 ml/min; Est GFR (Non-African American) 84.4 ml/min
--- NOTE | 2024-07-28 05:50 | Electrocardiogram Report ---
Test Reason : Blood Pressure : */* mmHG Vent. Rate : 98 BPM Atrial Rate : 98 BPM P-R Int : 168 ms QRS Dur : 88 ms QT Int : 366 ms P-R-T Axes : 73 -59 114 degrees QTcB Int : 467 ms Normal sinus rhythm Low voltage QRS Left anterior fascicular block Nonspecific ST and T wave abnormality Abnormal ECG When compared with ECG of 26-Jul-2024 08:58, No significant change was found Confirmed by Davie Rascon ([id number]) on 07/28/2024 5:49:45 AM Referred By: REFERRED SELF Confirmed By: Davie Rascon
[2024-07-28] MEDS: METOPROLOL TARTRATE 25 MG TAB PO SCH (08:23)
[2024-07-28] MEDS: INSULIN ASPART PER UNIT CHARGE SC SCH ×2 (08:51→11:49)
--- NOTE | 2024-07-28 11:08 | Pharmacy Report ---
Pharmacy Glycemic Short Note 2 - Date of Service July 28, 2024 - Glycemic Short BSG Results (Last 24 hours): 07/27/24 07/27/24 07/27/24 11:26 16:23 20:15 Glucose POC Glucose 187 H 85 161 H 07/28/24 07/28/24 07/28/24 04:44 07:10 10:48 Glucose 106 H POC Glucose 107 H 204 H OUTPATIENT ANTIDIABETIC REGIMEN: * U-500 insulin 15 units TID (patient reports taking 70 units BID) * Jardiance 25 mg PO daily * HbA1c = 12.5% (07/01/24) ASSESSMENT: 07/28: * Stressors stable. * AM fasting BSG wnl after 20 units NPH x1 admin yesterday AM. Will keep same total daily dose, but split more AM/PM * Trend w lower BSg at dinner with higher BSG's at lunch and dinner. Etiology likely 2nd peaks and troughs of NPH. Will therefore utilize different Novolog parameters w breakfast/dinner than lunch/bedtime 07/27: * Stressors stable. Hypoglycemia at dinner noted yesterday with AM fasting hyperglycemia noted this AM * Will reduce NPH w breakfast and increase NPH with dinner * Will slightly loosen carb ratio as this too may have contributed to hypoglycemia at dinner (increased CHO intake at lunch noted) * Empagliflozin is being continued as an inpatient due to co-indication for CHF 07/26: * Received 29 units of insulin yesterday, 10 of which were NPH. BSGs were: [phone] mg/dL. Continues on Jardiance 25 mg daily. * Fasting was 208 mg/dL this AM. Will increase NPH as PO intake is good. This w ill be based on previous admission data. * No change to Novolog today given significant increase in NPH. RN reports patient asking to snack often. 07/25: * 79 y/o F admitted for chest pain/NSTEMI. She has history of Type 2 diabetes managed on U-500 insulin at home- per patient report she was taking U-500 insulin 70 units BID at home. * Patient is known to glycemic service from previous admissions. For basal insulin she would get NPH insulin BID with meals. * Yesterday she did receive 10 units of basal Lantus at night. 10 units of NPH was ordered this morning but patient was made NPO and had cardiac cath, therefore this was not given. Ordered 10 units of NPH with dinner. Holding Lantus. * Novolog parameters ordered the same as previous admissions. PLAN FOR INPATIENT GLYCEMIC CONTROL: * Empagliflozin 25 mg PO AM * Basal insulin * NPH 15 units SC with breakfast * NPH 5 units SC with dinner * Bolus insulin * NovoLog at breakfast and dinner * Goal Range: Low 110 mg/dL - High 140 mg/dL * Correction Factor: 20 mg/dL/unit * Nutritional / Prandial insulin per carb ratio of 1 unit per 7 grams CHO consumed * Bolus insulin * NovoLog at lunch and bedtime * Goal Range: Low 110 mg/dL - High 140 mg/dL * Correction Factor: 30 mg/dL/unit * Nutritional / Prandial insulin per carb ratio of 1 unit per 10 grams CHO consumed
--- NOTE | 2024-07-28 15:41 | Electrocardiogram Report ---
Test Reason : Blood Pressure : */* mmHG Vent. Rate : 81 BPM Atrial Rate : 81 BPM P-R Int : 188 ms QRS Dur : 172 ms QT Int : 444 ms P-R-T Axes : 90 -69 101 degrees QTcB Int : 515 ms Atrial-sensed ventricular-paced rhythm Abnormal ECG When compared with ECG of 01-Jun-2024 19:29, Electronic ventricular pacemaker has replaced Sinus rhythm Confirmed by Ellie Lambert ([id number]) on 07/24/2024 2:39:08 PM Referred By: Confirmed By: Ellie Lambert
--- NOTE | 2024-07-28 15:41 | Electrocardiogram Report ---
Test Reason : Blood Pressure : */* mmHG Vent. Rate : 85 BPM Atrial Rate : 85 BPM P-R Int : 182 ms QRS Dur : 108 ms QT Int : 384 ms P-R-T Axes : -19 98 -22 degrees QTcB Int : 456 ms Normal sinus rhythm Rightward axis Inferior infarct , age undetermined possible acute Cannot rule out Anterior infarct , age undetermined Abnormal ECG When compared with ECG of 24-Jul-2024 13:43, Sinus rhythm has replaced Electronic ventricular pacemaker Confirmed by Ellie Lambert ([id number]) on 07/25/2024 9:45:25 AM Referred By: REFERRED SELF Confirmed By: Ellie Lambert
[2024-07-28] MEDS: INSULIN HUMAN NPH SC SCH (16:44)
[2024-07-28] MEDS ORDERED: INSULIN HUMAN NPH SC SCH (17:00)
--- NOTE | 2024-07-28 20:22 | Hospitalist Progress Note ---
Date of Service July 28, 2024 Assessment & Plan (1) STEMI (ST elevation myocardial infarction): Plan: 79 y/o with HFrEF and severe multivessel CAD required 5 stents Oct 2023 at time of NSTEMI. Initial cath 10/06/[address] Javier s/p KRISH to LAD. Then underwent additional staged PCI with KRISH to proximal Cx and KRISH to occluded jailed diagonal. 10/15/2023 -- additional KRISH to ostial left main, and KRISH to proximal LAD, along with aspiration thrombectomy of LCx stent at [facility] in the setting of heart failure. Admitted here on 07/24 with chest pain, initial EKG vpaced and troponins low (20- 30s), but 07/25 AM had recurrent chest pain and EKG consistent with STEMI. s/p emergent cath 07/25/[address] Rivera with following findings -- Coronary Anatomy Dominant: Right Left Main (% Stenosis): Normal (Stent with diffuse mild less than 20% in-stent restenosis) LAD (% Stenosis): Proximal (Mild in-stent restenosis followed by 99% in-stent restenosis/thrombosis) and Mid (Stent 99% occluded) D1 (% Stenosis): Ostial (Stent 99% occluded) Circumflex (% Stenosis): Proximal (Stent patent) OM1 (% Stenosis): Normal RCA (% Stenosis): Proximal (30%) R PDA (% Stenosis): Proximal (Up to 50%) R PL1 (% Stenosis): Normal s/p 3 stents to the LAD lesion. Unsuccessful attempt at PTCA of the ostial and proximal diagonal stent. Echo 07/25 - EF 25-30%, septal/inferior wall/apical akinesis, VSD suggested in some views. Required post-cath pressors --> now off such. Most cardiac meds thus far held due to low BP but Dr Javier did start back her beta neeru today. Remains on ASA, Brilinta, statin. Usual cardiac meds: metoprolol XL 50 mg, ASA, brilinta, entresto, empaglifozin, atorvastatin 80, zetia, furosemide 20, spironolactone 25. (2) CAD (coronary artery disease): Plan: see above in #1 (3) HFrEF (heart failure with reduced ejection fraction): Plan: chronic systolic CHF 2nd to ischemic cardiomyopathy prior EF 30-40% now worse - 25-30% - in the setting of her acute [place] thus far remains compensated on exam resume her BB today resume her lasix tomorrow then Entresto (4) Poorly controlled type 2 diabetes mellitus: Plan: HbA1C 12.5% Follows with [facility] DM clinic patient desires Dexcom & Insulin pump will get her back to Dr Rhea stroud post-discharge Patient prescribed U-500 15 units TID although patient reports she is taking 70 units BID?? Appreciate pharmacy glycemic consult for ongoing diabetes control with basal- bolus insulins (5) COPD (chronic obstructive pulmonary disease): Plan: no exacerbation at this time cont usual inhalers now with URI - check a COVID swab (6) Cerebrovascular disease: Plan: reported h/o previous TIAs and stroke cont asa/brilinta/statin for secondary prevention (7) Pacemaker: Plan: placed 2nd to 2nd AV block in 2020 (8) Cognitive impairment: Plan: concern for may benefit from neurology referral post-d/c for more extensive testing if present likely of vascular origin in light of prior stroke event(s) daily headaches for months; she is agreeable to MRI brain will obtain w/ and w/o contrast to r/o mets (h/o breast ca) (9) Abnormal CT scan, lumbar spine: Plan: seen incidentally on CTA chest reported finding -- "There is sclerotic change throughout the body of L1 with mild surrounding paravertebral edema. This is pathologically indeterminant, but new as compared to the 04/23/2023 PET examination. No additional similar appearing bony lesions are seen and this is likely on a degenerative basis. Given the history of breast cancer metastatic disease could appear similar. In the appropriate clinical setting infection would also be impossible to exclude. Clinical correlation will be essential." consider dedicated MRI lumbar spine but getting MRI brain first as above (10) URI (upper respiratory infection): Plan: check COVID swab Plan VTE Prophylaxis - SQ heparin bid appreciate cardiology assistance cleared by PT for home left message for pt's son, Daryl, on his voicemail this pm if COVID is neg and MRI brain neg and feeling well tomorrow can d/c home Admission and Anticipated Discharge Date Admission Date: July 25, 2024 Subjective tele overnight wnl pt states she thinks she is "getting a cold" coughing, sneezing, nasal congestion but good appetite, no myalgias, no fevers or chills no cp or dyspnea worked with PT - cleared for home mental status very clear having headaches again - willing to get MRI brain Review of Systems Review of Systems: cv - no orthopnea or edema pulm - no dyspnea despite the cough GI - no N/V Physical Exam Physical Exam: gen - NAD, lying flat in bed comfortably, coughing neck - no JVD mouth - MMM heart - RRR, s1 s2, no murmur lungs - CTA b/l abd - soft NT ND BS+ ext - no edema, pulses 2+ b/l psych - a/o x 3 Results & Data Results & Data Vital Signs (Past 12 Hours) Vital Signs Temp Pulse Pulse Resp BP BP Pulse Ox 07/28/24 15:17 36.6 C 82 18 103/70 93 07/28/24 14:47 36.6 C 87 18 97/67 L 98 07/28/24 11:06 82 20 103/52 L 95 07/28/24 10:50 36.8 C 80 18 96 07/28/24 09:36 123/83 O2 Del Method 07/28/24 15:17 Room Air 07/28/24 14:47 Room Air 07/28/24 11:06 Room Air 07/28/24 10:50 Room Air 07/28/24 09:36 Laboratory Results Laboratory Results - last 24 hr 07/28/24 07/28/24 07/28/24 04:44 07:10 10:48 Sodium 135 L Potassium 4.0 Chloride 106 Carbon Dioxide 22 Anion Gap 7 BUN 17 Creatinine 0.65 Est Cr Clr Drug Dosing 70.2 Est GFR ( Amer) 97.9 Est GFR (Non-Af Amer) 84.4 BUN/Creatinine Ratio 26.2 H Glucose 106 H POC Glucose 107 H 204 H Calcium 8.3 L Triglycerides 133 Cholesterol 107 LDL Cholesterol, Calc 42 VLDL Cholesterol, Calc 27 HDL Cholesterol 38 Cholesterol/HDL Ratio 2.8 SARS-CoV-2 RNA (RT-PCR) 07/28/24 07/28/24 07/28/24 16:05 18:00 19:29 Sodium Potassium Chloride Carbon Dioxide Anion Gap BUN Creatinine Est Cr Clr Drug Dosing Est GFR ( Amer) Est GFR (Non-Af Amer) BUN/Creatinine Ratio Glucose POC Glucose 93 105 H Calcium Triglycerides Cholesterol LDL Cholesterol, Calc VLDL Cholesterol, Calc HDL Cholesterol Cholesterol/HDL Ratio SARS-CoV-2 RNA (RT-PCR) Pending PG Care Time/CCT Total # of Minutes Spent Total Time Spent with Patient: Total time spent is greater than 50% in coordination of care (as documented) at patient's floor/unit and/or counseling patient: Coding Level of Care Code 69031 SUB INP/OBS CARE 2/35MIN Diagnoses STEMI (ST elevation myocardial infarction) I21.3 CAD (coronary artery disease) I25.10 HFrEF (heart failure with reduced ejection fraction) I50.20 Poorly controlled type 2 diabetes mellitus E11.65 COPD (chronic obstructive pulmonary disease) J44.9 Cerebrovascular disease I67.9 Pacemaker Z95.0 Cognitive impairment R41.[address] scan, lumbar spine R93.7 URI (upper respiratory infection) J06.9
--- NOTE | 2024-07-28 23:38 | Cardiology Progress Note ---
Date of Service July 28, 2024 Assessment & Plan (1) Non-ST elevation FL (NSTEMI): Plan: --ISR/Late LAD stent thrombosis 07/2024 -- 3 additional KRISH to LAD. 10/15/2023 Additional KRISH to ostial left main, and KRISH to proximal LAD, along with aspiration thrombectomy of LCx stent at [facility] in the setting of heart failure Late presenting NSTEMI 3DES to LAD. In hospital staged PCI with additional KRISH to proximal Cx and KRISH to occluded jailed diagonal. 2. HFrEF/ischemic cardiomyopathyEF 30-35% 3. Poorly controlled Type 2 diabetes 4. AV block post dual-chamber PPM 5. History of cerebrovascular disease with prior CVA 6. Spinal stenosis, neurogenic claudication, recurrent fallsprior injection, surgery previously considered Stable post FL and PCI with 3 new additional KRISH to LAD 3 days ago. No recurrent chest pain. Electrically stable. No signs of heart failure on exam. Restarted on metoprolol tartrate 25 mg twice daily today. Transition back to Toprol-XL at discharge. Resume remainder of HF regimen as BP allows Continue DAPT with aspirin, ticagrelor Continue current statin Do not feel she would be a good LifeVest candidate From a cardiac standpoint stable for discharge when other medical issues stable. Admission and Anticipated Discharge Date Admission Date: July 25, 2024 Subjective Seen this morning. Feeling well. Denies any chest pain or dyspnea. Telemetry reviewedno evidence Review of Systems Review of Systems: All systems reviewed & are unremarkable except as noted in HPI & below Physical Exam Physical Exam: General: Comfortable HEENT: Sclerae anicteric Lungs: Clear to auscultation bilaterally Cardiac: Regular rate and rhythm, no murmurs. Abdomen: Soft, nontender Extremities: Well perfused, no peripheral edema Neuro: Nonfocal Psych: Alert orient x3, normal affect and mood Results & Data Vital Signs (Past 12 Hours) Vital Signs Temp Pulse Resp BP Pulse Ox O2 Del Method 07/28/24 23:30 98.2 F 87 18 98/65 L 93 Room Air 07/28/24 20:54 78 20 102/69 94 Room Air 07/28/24 20:31 97.7 F 86 18 106/71 96 Room Air 07/28/24 15:17 97.9 F 82 18 103/70 93 Room Air 07/28/24 14:47 97.9 F 87 18 97/67 L 98 Room Air PG Care Time/CCT Total # of Minutes Spent Total Time Spent with Patient: Total time spent is greater than 50% in coordination of care (as documented) at patient's floor/unit and/or counseling patient: Coding Level of Care Code 28196 SUB INP/OBS CARE 2/35MIN Diagnoses Non-ST elevation FL (NSTEMI) I21.4
--- NOTE | 2024-07-29 09:53 | Cardiology Progress Note ---
Date of Service July 29, 2024 Assessment & Plan (1) Non-ST elevation UT (NSTEMI): Plan: --ISR/Late LAD stent thrombosis 07/2024 -- 3 additional KRISH to LAD. 10/15/2023 Additional KRISH to ostial left main, and KRISH to proximal LAD, along with aspiration thrombectomy of LCx stent at [facility] in the setting of heart failure Late presenting NSTEMI 3DES to LAD. In hospital staged PCI with additional KRISH to proximal Cx and KRISH to occluded jailed diagonal. 2. HFrEF/ischemic cardiomyopathyEF 30-35% 3. Poorly controlled Type 2 diabetes 4. AV block post dual-chamber PPM 5. History of cerebrovascular disease with prior CVA 6. Spinal stenosis, neurogenic claudication, recurrent fallsprior injection, surgery previously considered Stable post UT and PCI with 3 new additional KRISH to LAD 4 days ago. No recurrent chest pain. Electrically stable. No signs of heart failure on exam. Continue metoprolol tartrate 25 mg twice daily today. Transition back to Toprol-XL at discharge. On SGLT2 Continue maintenance Lasix 20 mg daily Resume remainder of HF regimen as BP allows as an outpatient Continue DAPT with aspirin, ticagrelor Continue current statin Do not feel she would be a good LifeVest candidate From a cardiac standpoint stable for discharge when other medical issues stable. Admission and Anticipated Discharge Date Admission Date: July 25, 2024 Subjective Feeling well this morning. No chest pain, no shortness of breath. Still with intermittent headaches. MRI pending. Telemetry reviewedno events Physical Exam Physical Exam: General: Comfortable HEENT: Sclerae anicteric Lungs: Clear to auscultation bilaterally Cardiac: Regular rate and rhythm, no murmurs. Abdomen: Soft, nontender Extremities: Well perfused, no peripheral edema Neuro: Nonfocal Psych: Alert orient x3, normal affect and mood Results & Data Vital Signs (Past 12 Hours) Vital Signs Temp Pulse Pulse Resp BP Pulse Ox O2 Del Method 07/29/24 07:13 97.5 F L 84 18 95/68 L 97 Room Air 07/29/24 03:07 97.5 F L 78 18 100/60 97 Room Air 07/29/24 01:07 98 H 07/28/24 23:30 98.2 F 87 18 98/65 L 93 Room Air PG Care Time/CCT Total # of Minutes Spent Total Time Spent with Patient: Total time spent is greater than 50% in coordination of care (as documented) at patient's floor/unit and/or counseling patient: Coding Level of Care Code 58273 SUB INP/OBS CARE 2MIN Diagnoses Non-ST elevation UT (NSTEMI) I21.4
[2024-07-29 11:47] VITALS: BP 107/66; PULSE 78; RESP 16; TEMP 97.9; O2SAT 99
[2024-07-29] MEDS: GADOBUTROL 65ML VIAL IV ONE (11:53)
--- NOTE | 2024-07-29 14:17 | Magnetic Resonance Report ---
Brain MRI WITH AND WITHOUT CONTRAST HISTORY: h/o breast ca, daily headaches, r/o mets TECHNIQUE: Multiplanar multisequence MRI of the brain was performed both before and after the intrave nous administration of contrast. COMPARISON STUDY: Head CT 07/01/2024. Brain MRI 11/08/2022. FINDINGS: There is no mass, hematoma, midline shift, or acute infarct. The paranasal sinuses are john r. The mastoid air cells are clear. The ventricles and sulci demonstrate mild age-related involutiona l changes. Scattered foci of T2 hyperintensity seen within the periventricular and subcortical white matter are nonspecific but suggestive of mild microvascular ischemic changes. The major vascular flow voids at the skull base are well-maintained. There is an old punctate lacunar infarct within the rig ht basal ganglia. Prior bilateral lens replacement. Postcontrast sequences show no areas of abnormal enhancement. IMPRESSION: 1. No acute infarct or intracranial hemorrhage. 2. No evidence for intracranial metastatic disease. 3. Atrophy and microvascular ischemic changes again noted. ACT 112: Negative or not required by law. Electronically signed by: Cornell Fisher M.D. 07/29/2024 2:16 PM
--- NOTE | 2024-07-29 15:56 | Discharge Summary ---
Discharge Summary Date of Service date of admission - July 24, 2024 date of discharge - July 29, 2024 Principal Dx & Hospital Course #1 = Principal Diagnosis (1) STEMI (ST elevation myocardial infarction): 79 y/o with HFrEF and severe multivessel CAD who required 5 stents in Oct 2023 at time of NSTEMI. Initial cath 10/06/[address] Javier s/p KRISH to LAD. Then underwent additional staged PCI with KRISH to proximal Cx and KRISH to occluded jailed diagonal. 10/15/2023 -- additional KRISH to ostial left main, and KRISH to proximal LAD, along with aspiration thrombectomy of LCx stent at [facility] in the setting of congestive heart failure. Admitted here on 07/24/24 with chest pain, initial EKG v-paced and troponins low (20-30s), but 07/25/24 AM had recurrent chest pain and EKG consistent with STEMI. s/p emergent cath 07/25/[address] Shilo Rivera with following findings -- Coronary Anatomy Dominant: Right Left Main (% Stenosis): Normal (Stent with diffuse mild less than 20% in-stent restenosis) LAD (% Stenosis): Proximal (Mild in-stent restenosis followed by 99% in-stent restenosis/thrombosis) and Mid (Stent 99% occluded) D1 (% Stenosis): Ostial (Stent 99% occluded) Circumflex (% Stenosis): Proximal (Stent patent) OM1 (% Stenosis): Normal RCA (% Stenosis): Proximal (30%) R PDA (% Stenosis): Proximal (Up to 50%) R PL1 (% Stenosis): Normal s/p 3 stents to the LAD lesion. Unsuccessful attempt at PTCA of the ostial and proximal diagonal stent. Echo 07/25 - EF 25-30%, septal/inferior wall/apical akinesis, VSD suggested in some views. Following her catheterization she was admitted to the ICU. Required post-cath pressors. Most cardiac meds including beta neeru, etc were held due to low BP in the immediate days following the STEMI. She was ultimately resumed on low-dose beta neeru. Aspirin, Brilinta, statin were continued. At discharge the following medications were continued - * metoprolol succinate 50mg daily * aspirin 81mg daily * Brilinta 90mg BID * empagliflozin 25mg daily * zetia 10mg daily * furosemide 20mg daily * nitro SL prn The following medicines were ON HOLD at time of discharge - * Entresto * spironolactone * imdur (2) CAD (coronary artery disease): see above in #1 following her STEMI she had some minor chest discomfort the day after her cath but these symptoms resolved & did not recur (3) HFrEF (heart failure with reduced ejection fraction): chronic systolic CHF 2nd to ischemic cardiomyopathy prior EF 30-40% now worse - 25-30% - in the setting of her acute CT fortunately remained compensated on exam during the stay continue metoprolol succinate 50mg daily continue furosemide 20mg daily continue empagliflozin 25mg daily Entresto, imdur, & spironolactone were on hold at time of discharge but likely will be resumed in the near-future as outpatient (4) Poorly controlled type 2 diabetes mellitus: HbA1C 12.5% Follows with [facility] Patient prescribed U-500 15 units TID with meals although patient reported she was taking 70 units BID at home pre-admission During the stay she was requiring a total daily dose of insulin between 30 and 40 units with overall acceptable control Thus, at discharge, advised Humulin-R 500 - 20 units with breakfast + 20 units with evening meal Of note - the pharmacy glycemic team provided glycemic oversight & management during her stay (5) COPD (chronic obstructive pulmonary disease): no exacerbation while here cont usual inhalers COVID testing was negative during the stay (6) Cerebrovascular disease: h/o previous TIAs and stroke cont asa/brilinta/statin/zetia for secondary prevention (7) 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 no issues while here (8) Cognitive impairment: concern for would benefit from neurology referral post-d/c for more extensive testing if she has cognitive impairment/early dementia it is likely of vascular origin in light of prior stroke event(s) patient reported daily headaches for months; she was agreeable to MRI brain MRI did NOT show evidence of metastatic disease (she has prior h/o breast cancer) MRI did show an OLD, punctate lacunar infarct in the right basal ganglia patient was seen by both psychiatry and speech therapy to assess her cognitive ability and her capacity at this time, although her family reports poor decision making at times as well as ?delusional type thought processes, she is a/o x 3 and can recall nearly every conversation had while in the hospital she can recite the names of her medicines, her outpatient providers, and her medical history thus, she likely still retains medical decision-making capacity with that said I did encourage the patient to start thinking about assisted living facilities she is also interested in having her prescription medicines prepacked in "pill packs" to help with daily use of her meds this is a service available via [facility] in [place] (9) Abnormal CT scan, lumbar spine: seen incidentally on CTA chest reported finding -- "There is sclerotic change throughout the body of L1 with mild surrounding paravertebral edema. This is pathologically indeterminant, but new as compared to the 04/23/2023 PET examination. No additional similar appearing bony lesions are seen and this is likely on a degenerative basis. Given the history of breast cancer metastatic disease could appear similar. In the appropriate clinical setting infection would also be impossible to exclude. Clinical correlation will be essential." advise outpatient dedicated MRI lumbar spine and follow-up with either Dr Sunny Hardy, ortho-spine, and/or her oncologist at [facility] (10) URI (upper respiratory infection): checked COVID swab and was negative symptoms were mild Plan cleared by PT for home Notes For Next Care Provider 1. outpatient neurology referral to Dr Joby Webber due to headaches & concern by family of cognitive impairment 2. outpatient referral to ortho-spine for abnormal lumbar spine on CT Medication Changes From Visit 1. HUMALOG -- 20 units BID with meals 2. HOLD the following -- imdur, Entresto, spironolactone Admission HPI Per Admitting Provider Dinorah Robledo is a 79 year old female who presents to the ER with chest pain. She has a significant history of NSTEMI in October 2023 requiring multiple stents and catheterizations with transfer to [place]. Since this she has been getting some intermittent chest pain and was started on ISMN in May although subsequently held due to headaches. The pain was also suspected to be GI in origin and she underwent EGD in May showing gastritis which she reports reflux has resolved with Dexilant. She reports her current chest pain started at 9pm last night. Feels like her prior NSTEMI which is different from her reflux feeling which is higher up. Started when she got up to go to the bathroom and never resolved. Substernal without radiation. Severity currently 5/10 and constant pressure. Reports Fentanyl helped but only for 10-15 minutes. Discharge Exam gen - NAD, lying flat in bed comfortably, looks good today neck - no JVD mouth - MMM heart - RRR, s1 s2, no murmur lungs - CTA b/l abd - soft NT ND BS+ ext - no edema, pulses 2+ b/l psych - a/o x 3 Discharge Plan Discharge Items Patient Disposition: Home - Self-Care Reason For Visit: ACUTE CORONARY SYNDROME Discharge Diagnosis: 1. acute myocardial infarction (heart attack) 2. chronic congestive heart failure 3. diabetes 4. pacemaker 5. coronary artery disease 6. chronic, daily headaches - follow-up with Dr Joby Webber, [facility] 7. TINY, old stroke deep in the brain seen on MRI scan - not contributing to your headaches; follow-up with Dr Webber for this 8. abnormality seen at L1 of your lumbar spine; this will require follow-up with Dr Hardy at [facility] and potentially [facility] Activity: Per Instructions section Lifting: No more than 10 pounds Exercise/Sports: Wait until after follow-up appointment Non-emergency contact: Primary Care Provider, Specialist and Media Professional Call non-emergency contact if: you have any medication questions and your symptoms worsen Follow-up/Referrals: Hussain Wilkreson MD [Physician] - 08/18/24 (diabetes follow-up ) Latrell Javier MD [Physician] - (2 weeks ) Millie Edwards MD [Primary Care Provider] - 08/13/24 10:30 am (1 week Scheduled with Reyna May PA-C on 08/13/24 at 10:30 am) Maris Clarke PA-C [Physician Linux Server Administrator] - 09/29/24 9:00 am (Neurology appointment scheduled September 29 at 9:00. Pt also added to cancellation list for a sooner appointment. Neurology office sending out a reminder in the mail with the new location's address. ) Diet: Carb Consistent or DM2 and Low Sodium (2gm) Fluids: 1800ml (7 cups) Addtl Attending Provider Instructions: Ms Robledo, You were hospitalized due to having a heart attack. Your heart catheterization - performed by Dr Shilo Rivera - showed blockages in 1 of the main coronary arteries. There was blockage in a previously placed stent as well. 3 new stents were placed in the "left anterior descending artery." Following your procedure we gradually resumed some of your heart medicines. Your chest pain and other symptoms resolved. We performed an MRI of the brain due to you having headaches and your family expressing concerns about your memory/thinking. This did not show any cancer of the brain, recent stroke, blood, etc. It showed a very tiny, OLD stroke deep in the brain. There is nothing to do for this at this time. But I would recommend follow-up with Dr Webber for the headaches. He can also do additional testing as needed. During your stay you required about 30-40 units of insulin each day. Thus, please lower your humalog to 20 units with breakfast and 20 units with your evening meal. Please check your sugars AT LEAST twice daily, but preferably three times daily (before meals). Due to your congestive heart failure please check your weight EVERY MORNING on the same scale. Write your weights down in a notebook to keep track. If you see your weight increase more than 2-3 pounds over a 1-[address] Javier' office for guidance. This may be a sign you are gaining fluid weight from your heart problems. Finally, incidentally on one of your CT scans, the lumbar level 1 ("L1") appeared abnormal. You have seen Dr Hardy for this in the past. Please plan to see Dr Hardy to address this abnormality on the CT scan. Follow-up - see separate section Return to [facility] if - * you have any concerns about the catheterization site in your groin * you have recurrent chest pains * you are short of breath * you feel dizzy or lightheaded * you have to use your nitroglycerin tablets under the tongue for chest pain * any other concerns It was our pleasure to care for you! Addtl Long Goods Drier Provider Instructions: Instructions following your heart catheterization - Your heart catheterization was done via the artery in your groin. * Do not strain during bowel movements for the first 3 to 4 days after the procedure to prevent bleeding from the catheter insertion site. * Avoid heavy lifting (more than 10 pounds) and pushing or pulling heavy objects for the first 5 to 7 days after the procedure. * Do not participate in strenuous activities. This includes most sports - jogging, golfing, playing tennis, bowling, etc. * You may climb stairs if needed, but walk up and down the stairs more slowly than usual. Pending Studies at Discharge: No Stand-Alone Forms: My [facility] [employer], Smoking Cessation Medications and DC Order Prescriptions: Continued levalbuterol HCl 0.63 mg/3 mL solution for nebulization 0.63 mg INH TID PRN (Reason: shortness of breath or wheezing) Qty: 360 5RF piqcblbrtt-jcdkpmw-phcsfrsg 50-325-40 mg capsule 1 cap PO Q4H PRN (Reason: pain) Qty: 1 0RF atorvastatin 80 mg tablet 80 mg PO QPM Qty: 90 3RF magnesium oxide 400 mg magnesium capsule 400 mg PO DAILY Qty: 30 2RF potassium chloride 20 mEq tablet extended release 20 meq PO DAILY Qty: 30 2RF ticagrelor 90 mg tablet 90 mg PO BID Qty: 180 3RF dexlansoprazole [Dexilant] 60 mg capsule,biphase delayed releas 60 mg PO QAM Qty: 90 3RF Phazyme 250 mg capsule 250 mg PO BID PRN (Reason: abdominal distention) Qty: 30 1RF alprazolam 0.25 mg tablet 0.25 mg PO DAILY PRN (Reason: anxiety) Qty: 30 0RF multivitamin [Multiple Vitamins] tablet 1 tab PO QAM cyanocobalamin (vitamin B-12) 1,000 mcg tablet 1,000 mcg PO QAM cholecalciferol (vitamin D3) 62.5 mcg (2,500 unit) capsule 62.5 mcg PO DAILY nitroglycerin 0.4 mg tablet, sublingual 0.3 mg sublingual Q5M PRN (Reason: chest pain) Qty: 10 0RF Rx Instructions: do not exceed 3 doses per episode duloxetine 60 mg capsule,delayed release(DR/EC) 60 mg PO QAM Qty: 90 3RF gabapentin 600 mg tablet 600 mg PO TID Qty: 90 3RF Advair HFA 230-21 mcg/actuation HFA aerosol inhaler 2 inh inhalation BID 90 Days Qty: 3 3RF Spiriva Respimat 2.5 mcg/actuation mist 2 puff INH QAM Qty: 3 3RF ipratropium bromide 21 mcg (0.03 %) spray,non-aerosol 2 spray intranasal BID PRN (Reason: Congestion) Rx Instructions: administer into each nostril ondansetron 4 mg tablet,disintegrating 4 mg PO Q8H PRN (Reason: Nausea And Vomiting) Qty: 120 3RF valacyclovir 1 gram tablet 2,000 mg PO BID PRN (Reason: cold sores) 1 Days Qty: 4 3RF Rx Instructions: For cold sore famotidine 40 mg tablet 40 mg PO BID PRN (Reason: heartburn) Qty: 60 2RF polyethylene glycol 3350 [Miralax] 17 gram/dose Powder 17 g PO QAM ezetimibe [Zetia] 10 mg tablet 10 mg PO HS aspirin 81 mg Tablet,Delayed Release (Dr/Ec) 81 mg PO QAM Qty: 90 0RF metoprolol succinate 50 mg tablet extended release 24 hr 50 mg PO QAM furosemide 20 mg tablet 20 mg PO QAM albuterol sulfate [Ventolin HFA] 90 mcg/actuation HFA aerosol inhaler 2 inh inhalation Q4H PRN (Reason: SOB) Rx Instructions: USE 2 INHALATIONS EVERY 4 HOURS NEEDED FOR SHORTNESS OF BREATH OR WHEEZING empagliflozin 25 mg tablet 25 mg PO DAILY Motegrity 2 mg tablet 2 mg PO QAM Rx Instructions: TAKE 1 TABLET EVERY MORNING Changed Humulin R U-500 (Conc) Kwikpen 500 unit/mL (3 mL) insulin pen See Rx Instructions subcut .COMPLEX Qty: 36 3RF Rx Instructions: 20 units twice daily (breakfast and evening meals) Held Entresto 49-51 mg tablet 1 tab PO BID Qty: 180 3RF Hold Instructions: Hold until you see Dr Javier in follow-up isosorbide mononitrate 30 mg tablet extended release 24 hr 30 mg PO .HOLD Hold Instructions: headaches spironolactone 25 mg tablet 25 mg PO QAM Hold Instructions: Hold until you see Dr Javier in follow-up No Action melatonin 2 tab PO .q bedtime diphenhydramine-acetaminophen [Tylenol PM Extra Strength] PO .q bedtime Discharge Orders: Discharge Order (Routine); Ordered 07/29/24 Ordered By: Abdiel Nichols Admission Data Admit Date/Time: 07/25/24 12:28 Attending Provider: Abdiel Nichols Admit Provider: Lashon Rees Primary Care Provider: Millie Edwards Other Providers: Ellie Lambert; Brian García Other Interventions: Discharge Summary Assessment (RN) Last Done: 07/29/24 14:47 Hospital Stay Data Consultations Cardiology Research And Development Chemist Behavioral Health Liaison Speech therapy PT Pharmacy glycemic team Procedures Performed Operation Date: 07/25/24 10:40 Actual Procedures s Cineradiography w/Routine Exam - Shilo Rivera MD, PhD p Aspiration/PCI w/KRISH for Stemi - Shilo Rivera MD, PhD Coronary Anatomy Dominant: Right Left Main (% Stenosis): Normal (Stent with diffuse mild less than 20% in-stent restenosis) LAD (% Stenosis): Proximal (Mild in-stent restenosis followed by 99% in-stent restenosis/thrombosis) and Mid (Stent 99% occluded) D1 (% Stenosis): Ostial (Stent 99% occluded) Circumflex (% Stenosis): Proximal (Stent patent) OM1 (% Stenosis): Normal RCA (% Stenosis): Proximal (30%) R PDA (% Stenosis): Proximal (Up to 50%) R PL1 (% Stenosis): Normal s/p 3 KRISH stents to the LAD lesion. Unsuccessful attempt at PTCA of the ostial and proximal diagonal stent. Echocardiogram -- Diagnostic Imagining Performed Chest X-Ray 07/24/24 13:47 SINGLE VIEW CHEST CLINICAL HISTORY: Atypical chest pain. FINDINGS: 2 AP, portable, upright chest radiographs are compared to study dated 06/01/2024. A 2-lead cardiac pacemaker is unchanged in position. The heart is enlarged noting atherosclerotic calcification of the thoracic aorta. The pulmonary vasculature is not congested. Chronic interstitial thickening is similar to previous. There is bibasilar scarring/atelectasis. No airspace consolidation or large pleural effusion is identified. No pneumothorax is seen. The skeletal structures are osteopenic. Advanced arthritic change and deformity is seen in the shoulders. Fusion hardware is noted in the lower cervical spine as well as the lumbar spine. IMPRESSION: 1. Cardiomegaly and cardiac pacemaker without radiographic evidence of congestive failure. 2. No airspace consolidation or large pleural effusion is identified. ACT 112: Negative or not required by law. Electronically signed by: Driss Stanley M.D. 07/24/2024 3:04 PM Chest CTA 07/24/24 14:24 CT ANGIOGRAM OF THE CHEST CLINICAL HISTORY: Atypical chest pain. History of breast cancer. COMPARISON STUDY: Chest x-ray dated 07/24/2024. The chest CT dated 01/05/2008. PET/CT dated 04/23/2023. MRI of lumbar spine dated 10/09/2023. TECHNIQUE: Following the IV administration of 160 cc of Optiray 320, CT angiogram of the chest was performed from the upper abdomen to the thoracic inlet utilizing the pulmonary embolus protocol. Images are reviewed in the axial, sagittal, and coronal planes. 3-D MIPS images are created and assessed. IV contrast was administered without complication. A dose lowering technique was utilized adhering to the principles of ALARA. CT DOSE: 673.19 mGy.cm FINDINGS: Thyroid: Normal in size and heterogeneous in attenuation. Thoracic aorta: There is atherosclerotic calcification of the thoracic aorta, which is normal in caliber and demonstrates standard 3-vessel arch anatomy. The thoracic aorta is not well opacified. Pulmonary vasculature: The pulmonary trunk is normal in caliber. There are no filling defects identified in main, lobar, or segmental pulmonary branches to suggest pulmonary embolus. Heart: A cardiac pacemaker is seen in the left chest wall. The heart is enlarged and without pericardial effusion. The coronary arteries are densely calcified. Lungs and pleural spaces: There is no airspace consolidation or pleural effusion. Dependent scarring/atelectasis is seen at the lung bases. A small calcified granuloma seen in the right lower lobe. The trachea and central airways are clear. Mild fibrotic change is seen at the apices. Mediastinum: There is no mediastinal lymphadenopathy. Rima: Clear. Axillae: There is no axillary lymphadenopathy. Upper abdomen: There is a qkxxb-po-jmhoppqs hiatal hernia. Partially visualized upper abdominal viscera is otherwise within normal limits. Skeletal structures: The skeletal structures are osteopenic. There is a chronic compression deformity of T7 with evidence of previous vertebroplasty. There is significant sclerotic changes in the L1 vertebral body which is pathologically indeterminant, and new as compared to 04/23/2023 PET examination. There is paravertebral edema at this level. Advanced arthritic change and deformity is seen in the shoulders. Soft tissues: Bilateral breast implants are noted. IMPRESSION: 1. There is no evidence of pulmonary embolus in the main, lobar, or segmental pulmonary arteries. 2. There is no airspace consolidation or pleural effusion. 3. There is sclerotic change throughout the body of L1 with mild surrounding paravertebral edema. This is pathologically indeterminant, but new as compared to the 04/23/2023 PET examination. No additional similar appearing bony lesions are seen and this is likely on a degenerative basis. Given the history of breast cancer metastatic disease could appear similar. In the appropriate clinical setting infection would also be impossible to exclude. Clinical correlation will be essential. 4. Cardiomegaly noting advanced coronary artery atherosclerosis. 5. Additional findings as above. ACT 112: Negative or not required by law. Electronically signed by: Driss Stanley M.D. 07/24/2024 4:25 PM Brain MRI 07/29/24 00:00 Brain MRI WITH AND WITHOUT CONTRAST HISTORY: h/o breast ca, daily headaches, r/o mets TECHNIQUE: Multiplanar multisequence MRI of the brain was performed both before and after the intravenous administration of contrast. COMPARISON STUDY: Head CT 07/01/2024. Brain MRI 11/08/2022. FINDINGS: There is no mass, hematoma, midline shift, or acute infarct. The paranasal sinuses are clear. The mastoid air cells are clear. The ventricles and sulci demonstrate mild age-related involutional changes. Scattered foci of T2 hyperintensity seen within the periventricular and subcortical white matter are nonspecific but suggestive of mild microvascular ischemic changes. The major vascular flow voids at the skull base are well-maintained. There is an old punctate lacunar infarct within the right basal ganglia. Prior bilateral lens replacement. Postcontrast sequences show no areas of abnormal enhancement. IMPRESSION: 1. No acute infarct or intracranial hemorrhage. 2. No evidence for intracranial metastatic disease. 3. Atrophy and microvascular ischemic changes again noted. ACT 112: Negative or not required by law. Electronically signed by: Cornell Fisher M.D. 07/29/2024 2:16 PM Pending Results Patient Have Any Pending Studies at Discharge: No Discharge Instructions Given to Patient (Per Discharging Provider) Ms Robledo, You were hospitalized due to having a heart attack. Your heart catheterization - performed by Dr Shilo Rivera - showed blockages in 1 of the main coronary arteries. There was blockage in a previously placed stent as well. 3 new stents were placed in the "left anterior descending artery." Following your procedure we gradually resumed some of your heart medicines. Your chest pain and other symptoms resolved. We performed an MRI of the brain due to you having headaches and your family expressing concerns about your memory/thinking. This did not show any cancer of the brain, recent stroke, blood, etc. It showed a very tiny, OLD stroke deep in the brain. There is nothing to do for this at this time. But I would recommend follow-up with Dr Webber for the headaches. He can also do additional testing as needed. During your stay you required about 30-40 units of insulin each day. Thus, please lower your humalog to 20 units with breakfast and 20 units with your evening meal. Please check your sugars AT LEAST twice daily, but preferably three times daily (before meals). Due to your congestive heart failure please check your weight EVERY MORNING on the same scale. Write your weights down in a notebook to keep track. If you see your weight increase more than 2-3 pounds over a 1-2 [address] call Dr Javier' office for guidance. This may be a sign you are gaining fluid weight from your heart problems. Finally, incidentally on one of your CT scans, the lumbar level 1 ("L1") appeared abnormal. You have seen Dr Hardy for this in the past. Please plan to see Dr Hardy to address this abnormality on the CT scan. Follow-up - see separate section Return to [facility] if - * you have any concerns about the catheterization site in your groin * you have recurrent chest pains * you are short of breath * you feel dizzy or lightheaded * you have to use your nitroglycerin tablets under the tongue for chest pain * any other concerns It was our pleasure to care for you! Total Time Total Time Spent Total Time Spent (In Minutes): 60 Coding Level of Care Code 18498 INP/OBS DISCH >30 MIN Diagnoses STEMI (ST elevation myocardial infarction) I21.3 CAD (coronary artery disease) I25.10 HFrEF (heart failure with reduced ejection fraction) I50.20 Poorly controlled type 2 diabetes mellitus E11.65 COPD (chronic obstructive pulmonary disease) J44.9 Cerebrovascular disease I67.9 Pacemaker Z95.0 Cognitive impairment R41.[address] scan, lumbar spine R93.7 URI (upper respiratory infection) J06.9
== END 2024-07-29 16:15 | disposition home or self-care (01) | DRG 321 ==
LOC: 4W 13:29 → ED 13:29 → SUATTDRO 17:27 → 4W 21:32 → 1E 07-25 12:33 → SUATTDRO 07-25 12:34 → 2S 07-28 14:35
DX: Y71.2 Prosthetic and other implants, materials and accessory cardiovascular devices associated with adverse incidents; E11.65 Type 2 diabetes mellitus with hyperglycemia; Z88.8 Allergy status to other drugs, medicaments and biological substances; Z79.51 Long term (current) use of inhaled steroids; T82.867A Thrombosis due to cardiac prosthetic devices, implants and grafts, initial encounter; I11.0 Hypertensive heart disease with heart failure; I25.10 Atherosclerotic heart disease of native coronary artery without angina pectoris; J06.9 Acute upper respiratory infection, unspecified; Z79.82 Long term (current) use of aspirin; Z79.899 Other long term (current) drug therapy; E87.1 Hypo-osmolality and hyponatremia; Z95.5 Presence of coronary angioplasty implant and graft; Z95.0 Presence of cardiac pacemaker; Z88.2 Allergy status to sulfonamides; I50.22 Chronic systolic (congestive) heart failure; I95.81 Postprocedural hypotension; R51.9 Headache, unspecified; E78.5 Hyperlipidemia, unspecified; J44.9 Chronic obstructive pulmonary disease, unspecified; Z79.4 Long term (current) use of insulin; I21.02 ST elevation (STEMI) myocardial infarction involving left anterior descending coronary artery; R93.7 Abnormal findings on diagnostic imaging of other parts of musculoskeletal system; Z88.1 Allergy status to other antibiotic agents; Z86.73 Personal history of transient ischemic attack (TIA), and cerebral infarction without residual deficits; T82.855A Stenosis of coronary artery stent, initial encounter; I67.9 Cerebrovascular disease, unspecified

== ENCOUNTER 2025-05-26 14:57 | Observation (INO) ==
--- NOTE | 2025-05-26 15:35 | Emergency Department Note ---
Impression & Plan Acute hyperglycemia Admission ED Provider Note HPI: History obtained from patient and cork cutter at the bedside. The patient is a 80-year-old female with history of CAD, status post multiple stents, mild cognitive impairment, COPD, SIADH, type 2 diabetes, presents the emergency department with multiple issues. Patient states that she had a fall on Friday when she was walking outside to water her plants, she states she hit the left side of her head but she did not lose consciousness. Patient was able to stand up and therefore did not seek medical attention at the time. Patient states she has had a moderate headache since her fall. Patient also notes that today she had several episodes of chest pain. She describes this as a painful "twitch" and states that it lasted for about 45 minutes earlier this morning. Patient states the pain is improved currently. Patient took nitro at home without immediate relief of her symptoms. Patient was stating some of the above to her cork cutter who arrived from an agency to assist her today, given the symptoms she brought her to the ER to be assessed. On arrival here to the ED the patient is alert, she does not have any focal deficits, she is hemodynamically stable and otherwise appears to be in no acute distress. ROS: - Per HPI Differential Diagnosis: Concussion, acute intracranial hemorrhage to include subdural hematoma, epidural hematoma, acute dehydration/acute kidney injury, critical electrolyte abnormalities, amongst other potential pathologies. *Outpatient medications and allergy history reviewed. PE: General: Alert, no acute distress HEENT: Normocephalic, trachea midline Eyes: Extraocular eye movement is intact, no scleral erythema Pulmonary: Clear to auscultation bilaterally, no wheezing Cardio: Regular rate and rhythm GI: Abdomen is soft to palpation : No suprapubic tenderness MSK: No evidence of trauma or malformation of the extremities, no edema Skin: No evidence of rash Neuro: Alert, no focal deficits Psychiatric: Cooperative INDEPENDENT INTERPRETATIONS: bus monitor: (As interpreted by myself): - An order was placed for continuous cardiac monitoring - Patient was noted to be in sinus rhythm with a rate of 72 EKG: (As interpreted by myself): Rate: 71 Rhythm: Normal sinus rhythm Intervals: Within normal limits ST changes: No ST elevation Time: 2032 Chest x-ray: (As interpreted by myself): No acute disease Interventions provided in ED: - IV morphine, IV Zofran Medical Decision Making: IV was established and lab work obtained, patient was placed on director of cardiac cath lab. Lab work shows no leukocytosis, hemoglobin is normal, platelet count is normal, CMP shows hyperglycemia to 612, anion gap is 12, serum bicarbonate level is normal. Troponin is negative x 1. EKG per my interpretation shows normal sinus rhythm without any evidence of acute ST elevation. Chest x-ray does not show any evidence of acute disease. CT imaging of the head was obtained that does not show any evidence of any acute intracranial process. On my reassessment the patient appears well, she is hemodynamically stable, her intermittent cork cutter from the agency is no longer at the bedside. Given the patient's severe hyperglycemia, insulin drip was ordered. I do feel the patient would benefit from admission for further management of her hyperglycemia and chest pain rule out. Patient was in agreement for admission. Case was discussed with the on-call hospitalist, Dr. Padron, the patient was placed for admission in stable condition. Consultants/Discussions held with other healthcare providers: - Hospitalist, Dr. Padron Diagnosis: 1. Hyperglycemia, acute 2. Closed head injury, acute 3. 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 s/p Medtronic [place] XT DR KELLY Dual Chamber Pacemaker 04/12/21 LAST PACEMAKER CHECK 12/2021 Vitamin D deficiency Dysphagia Occipital neuralgia Cognitive impairment COPD (chronic obstructive pulmonary disease) Osteoporosis Diagnosed based on high FRAX score Spinal stenosis of lumbar region (~01/26/24) Paresthesia of right lower extremity Adjacent segment disease of lumbar spine with history of fusion procedure Lumbar radiculopathy Lumbar post-laminectomy syndrome History of lumbar fusion S/P coronary artery stent placement Oct 2023- 5 or 6 placed CAD (coronary artery disease) HFrEF (heart failure with reduced ejection fraction) Hyponatremia SIADH (syndrome of inappropriate ADH production) Poorly controlled type 2 diabetes mellitus Hypertension Cerebrovascular disease 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, history of retinal artery occlusion Gastroparesis Mitral regurgitation (Acute) Dyslipidemia (Chronic) Gastroesophageal reflux disease Depression with anxiety Medical History (Updated 05/26/25 @ 20:13 by Xavier Flynn, ) Gastroparesis Paresthesia of right lower extremity History of breast cancer ~2013, sx only Knee osteoarthritis History of fracture Humerus Chronic sinusitis with recurrent bronchitis Saline breast implant in situ Migraines Mixed conductive and sensorineural hearing loss of right ear with restricted hearing of left ear Eustachian tube dysfunction Chronic cough 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 west, [address] in 10/2023, [place] [facility] [place] "few more stents placed, unsure of how many" Hx of cardiac cath History of open reduction and internal fixation (ORIF) procedure left humerus and wrist>hardware intact (2 separate sx) Pacemaker Medtronic, placed 03/2021, follows with [place] [facility]ology History of carotid endarterectomy right, 2013 History of breast reconstruction Bilateral, Dr. Barr, Allergsaul Style 410 implant, size unknown History of colonoscopy with polypectomy History of total hysterectomy with bilateral salpingo-oophorectomy (BSO) History of bilateral tubal ligation History of trigger finger x4--bilt hands History of surgery on left wrist plate in place duplicate History of carpal tunnel release of both wrists History of fusion of lumbar spine x4, most recent was 2021, [facility], L2-L4, L4-L5 hardware removal History of fusion of cervical spine ~2012, x3--"cant turn to the right" History of total right knee replacement (TKR) History of bladder suspension procedure History of esophagogastroduodenoscopy (EGD) History of cholecystectomy History of right breast biopsy malignant History of bilateral mastectomy h/o R breast CA-lymph node removal R side History of oral surgery gum sx History of bilateral cataract extraction Abdominoplasty (05/12/13) Family History Son Crohn's disease Sister Ulcerative colitis Family history of diabetes mellitus Mother Family history of diabetes mellitus Brother Family history of diabetes mellitus Other No family history of adverse response to anesthesia No family history of bleeding disorder Social History (Updated 05/26/25 @ 20:21 by Xavier Flynn DO) Smoking Status: Never smoker Second Hand Exposure: No; Do You Dip or Chew Tobacco: No; Hx Alcohol Use: Yes Alcohol type: beer Hx Substance Use: No Preferred Language: Kiswahili Communication Ability: Effective Visual Impairment: No Limitations Engineering 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 Required: No Beliefs That Will Affect Care: None marital status: marital status details: within the past year Current Living Situation: Alone current occupational status: retired current occupation: Retired Feels Safe at Home: Yes Diet: diabetic during the past year weight has: decreased > 10 lbs Dental Care, Regularly: Yes Physical Activity Frequency: Daily Seatbelt Use: always Sunscreen Use: Yes Assistive Devices: Cane and Walker Allergies Allergies Allergy/AdvReac Type Severity Reaction Status Date / Time buspirone Allergy Intermediate itchy all Verified 05/26/25 19:00 over and heart palpitaitons with tachycardia levofloxacin Allergy Intermediate ITCHY HIVES Verified 05/26/25 19:00 ofloxacin Allergy Intermediate RASH Verified 05/26/25 19:00 pioglitazone Allergy Intermediate ITCHING Verified 05/26/25 19:00 Sulfa (Sulfonamide Allergy Intermediate itchy Verified 05/26/25 19:00 Antibiotics) Home Meds Home Medications Medication Instructions Recorded Confirmed polyethylene glycol 3350 17 17 g PO QAM 05/19/20 05/26/25 gram/dose oral powder (Miralax) albuterol sulfate 90 mcg/actuation 2 inh inhalation Q4H PRN SOB 05/27/24 05/26/25 aerosol inhaler (Ventolin HFA) acetaminophen 650 mg 650 mg PO DAILY PRN PAIN/FEVER 04/12/25 05/26/25 tablet,extended release insulin regular hum U-500 conc 500 70 unit subcut BIDM 05/26/25 05/26/25 unit/mL(3 mL) subcut pen (Humulin R U-500 (Conc) Insulin Kwikpen) melatonin 3 mg tablet 6 mg PO HS 05/26/25 05/26/25 Previous Rx's Medication Instructions Recorded ondansetron 4 mg disintegrating 4 mg PO Q8H PRN Nausea And 12/24/23 tablet Vomiting #120 tabs fluticasone propionate 230 2 inh inhalation BID 90 days #3 03/16/24 mcg-salmeterol 21 mcg/actuation Inhalers HFA inhaler (Advair HFA) tiotropium bromide 2.5 2 puff inhalation QAM #3 Inhalers 03/16/24 mcg/actuation mist for inhalation (Spiriva Respimat) famotidine 40 mg tablet 40 mg PO BID PRN heartburn #60 tabs 05/26/24 simethicone 250 mg capsule 250 mg PO BID PRN abdominal 06/23/24 (Phazyme) distention #30 caps aspirin 81 mg tablet,delayed 81 mg PO QAM #30 tabs 08/13/24 release atorvastatin 80 mg tablet 80 mg PO QPM #30 tabs 08/13/24 cholecalciferol (vitamin D3) 62.5 62.5 mcg PO DAILY #30 caps 08/13/24 mcg (2,500 unit) capsule cyanocobalamin (vitamin B-12) 1,000 mcg PO QAM #30 tabs 08/13/24 1,000 mcg tablet duloxetine 60 mg capsule,delayed 60 mg PO QAM #30 caps 08/13/24 release ezetimibe 10 mg tablet (Zetia) 10 mg PO HS #30 tabs 08/13/24 multivitamin (Multiple Vitamins 1 tab PO QAM #30 tabs 08/13/24 tablet) furosemide 20 mg tablet 20 mg PO QAM #90 tabs 08/16/24 magnesium oxide 400 mg PO DAILY #90 caps 08/16/24 metoprolol succinate 50 mg 50 mg PO QAM #90 tabs 08/16/24 tablet,extended release 24 hr sacubitril 49 mg-valsartan 51 mg 1 tab PO BID #180 tabs 08/16/24 tablet (Entresto) spironolactone 25 mg tablet 25 mg PO QAM #90 tabs 08/16/24 ticagrelor 90 mg tablet 90 mg PO BID #180 tabs 08/16/24 valacyclovir 1 gram tablet 2,000 mg (2 x 1 gram) PO BID PRN 09/14/24 cold sores 1 day #4 tabs ipratropium bromide 0.02 % 2.5 ml inhalation QID PRN 09/23/24 solution for inhalation shortness of breath or wheezing #75 mL levalbuterol HCl 0.63 mg/3 mL 0.63 mg (3 mL) inhalation TID PRN 09/23/24 solution for nebulization shortness of breath or wheezing #360 mL rimegepant 75 mg disintegrating 75 mg PO DAILY PRN migraine 09/29/24 tablet (Nurtec ODT) headache #8 tabs pen needle,diabetic dual safty 30 #200 ea 12/30/24 gauge x 3/16" (BD AutoShield Duo Pen Needle) prucalopride 2 mg tablet 2 mg PO QAM #90 tabs 01/05/25 (Motegrity) buspirone 5 mg tablet 5 mg PO BID PRN anxiety #60 tabs 02/04/25 dexlansoprazole 60 mg 60 mg PO QAM #90 caps 03/14/25 capsule,biphase delayed release (Dexilant) empagliflozin 25 mg tablet 25 mg PO DAILY Coronary Artery 03/29/25 Disease #30 tabs ipratropium bromide 21 mcg (0.03 2 spray intranasal BID PRN runny 04/26/25 %) nasal spray nose #30 mL nitroglycerin 0.4 mg sublingual 0.4 mg sublingual Q5M PRN chest 04/26/25 tablet pain #10 tabs gabapentin 300 mg capsule 300 mg PO TID #90 caps 04/27/25 gabapentin 600 mg tablet 600 mg PO TID #90 tabs 04/27/25 Results & Data (ED) Vital Signs Vital Signs - 24 hr 05/26/25 15:00 05/26/25 15:12 05/26/25 18:04 Temperature 36.2 C L Temperature Source Temporal Artery Scan Pulse Rate 96 H Pulse Rate from SpO2 Sensor Respiratory Rate Blood Pressure 137/89 Blood Pressure Mean 105 Pulse Oximetry Oxygen Delivery Method Room Air Sepsis Recent Fever Within 48 Hours No Sepsis New/Unexplained Change in Mental Status N/A Sepsis Action Taken by Nursing No Action Required 05/26/25 18:04 05/26/25 19:07 05/26/25 19:09 Temperature Temperature Source Pulse Rate 75 74 Pulse Rate from SpO2 Sensor 74 Respiratory Rate 23 Blood Pressure 95/68 L Blood Pressure Mean 77 Pulse Oximetry 95 97 Oxygen Delivery Method Room Air Sepsis Recent Fever Within 48 Hours Sepsis New/Unexplained Change in Mental Status Sepsis Action Taken by Nursing 05/26/25 19:30 05/26/25 20:00 05/26/25 20:30 Temperature Temperature Source Pulse Rate 73 72 Pulse Rate from SpO2 Sensor 72 Respiratory Rate 16 20 Blood Pressure 115/53 L 120/69 109/55 L Blood Pressure Mean 63 82 73 Pulse Oximetry 92 95 Oxygen Delivery Method Sepsis Recent Fever Within 48 Hours Sepsis New/Unexplained Change in Mental Status Sepsis Action Taken by Nursing 05/26/25 21:00 05/26/25 21:30 05/26/25 21:32 Temperature Temperature Source Pulse Rate 74 75 Pulse Rate from SpO2 Sensor Respiratory Rate 15 17 Blood Pressure 122/59 L 119/86 Blood Pressure Mean 80 97 Pulse Oximetry Oxygen Delivery Method Room Air Sepsis Recent Fever Within 48 Hours Sepsis New/Unexplained Change in Mental Status Sepsis Action Taken by Nursing Laboratory Data 05/26/25 18:10 05/26/25 18:10 Lab Results 05/26/25 05/26/25 05/26/25 Range/Units 16:31 18:10 18:11 WBC Cancelled 6.18 RBC Cancelled 4.63 Hgb Cancelled 13.1 Hct Cancelled 40.0 MCV Cancelled 86.4 MCH Cancelled 28.3 MCHC Cancelled 32.8 RDW Std Deviation Cancelled 46.5 H RDW Coeff of Rian Cancelled 14.6 H Plt Count Cancelled 256 MPV Cancelled 10.4 Immature Gran % (Auto) Cancelled 0.5 Neut % (Auto) Cancelled 55.4 Lymph % (Auto) Cancelled 32.4 [place] % (Auto) Cancelled 7.9 Eos % (Auto) Cancelled 2.8 Baso % (Auto) Cancelled 1.0 Neut # (Auto) Cancelled 3.43 Lymph # (Auto) Cancelled 2.00 [place] # (Auto) Cancelled 0.49 Eos # (Auto) Cancelled 0.17 Baso # (Auto) Cancelled 0.06 Immature Gran # (Auto) Cancelled 0.03 Absolute Nucleated RBC Cancelled Nucleated RBC % (auto) Cancelled Neutrophils % (Manual) Cancelled Band Neutrophils % Cancelled Lymphocytes % (Manual) Cancelled Prolymphocyte % Cancelled Reactive Lymphs % (Man) Cancelled Monocytes % (Manual) Cancelled Eosinophils % (Manual) Cancelled Basophils % (Manual) Cancelled Metamyelocytes % (Man) Cancelled Myelocytes % (Man) Cancelled Promyelocytes % (Man) Cancelled Blast Cells % (Manual) Cancelled Plasma Cell % (Manual) Cancelled Other Cells % Cancelled Nucleated RBC % Cancelled Neutrophils # (Manual) Cancelled Band Neutrophils # Cancelled Total Absolute Neuts Cancelled Lymphocytes # (Manual) Cancelled Prolymphocyte # Cancelled Reactive Lymphs # Cancelled Total Abs Lymphocytes Cancelled Monocytes # (Manual) Cancelled Eosinophils # (Manual) Cancelled Basophils # (Manual) Cancelled Metamyelocytes # (Man) Cancelled Myelocytes # (Manual) Cancelled Promyelocytes # (Man) Cancelled Blast Cells # (Man) Cancelled Plasma Cell # (Manual) Cancelled Other Cells # Cancelled Nucleated RBCs # (Man) Cancelled Hypersegmented Neuts Cancelled Hyposegmented Neuts Cancelled Hypogranular Neuts Cancelled Large Granular Lymphs Cancelled # Lrg Granular Lymphs Cancelled Hairy Cells Cancelled Smudge Cells Cancelled Toxic Granulation Cancelled Toxic Vacuolation Cancelled Dohle Bodies Cancelled Clarissa Rods Cancelled Platelet Estimate Cancelled Hypogranular Platelets Cancelled Giant Platelets Cancelled Platelet Satelliting Cancelled RBC Morphology Cancelled Polychromasia Cancelled Hypochromasia Cancelled Poikilocytosis Cancelled Basophilic Stippling Cancelled Anisocytosis Cancelled Microcytosis Cancelled Macrocytosis Cancelled Spherocytes Cancelled Pappenheimer Bodies Cancelled Sickle Cells Cancelled Target Cells Cancelled Tear Drop Cells Cancelled Ovalocytes Cancelled Stomatocytes Cancelled [place] Bodies Cancelled Echinocytes Cancelled Acanthocytes (Spur) Cancelled Rouleaux Cancelled RBC Agglutinates Cancelled Schistocytes Cancelled Sezary Cell Cancelled PT 10.0 (9.0-12.0) Seconds INR 0.9 (0.9-1.1) VBG pH 7.38 (7.36-7.41) Sodium 130 L 133 L (136-145) mmol/L Potassium 3.9 3.6 (3.5-5.1) mmol/L Chloride 96 L 99 (98-107) mmol/L Carbon Dioxide 22 24 (21-32) mmol/L Anion Gap 12 H 10 (3-11) BUN 25 H 23 (6-23) mg/dl Creatinine 0.92 0.83 (0.6-1.2) mg/dl Est Cr Clr Drug Dosing 48.8 54.1 ml/min eGFR 62.94 71.22 BUN/Creatinine Ratio 27.2 H 27.7 H (10-20) Glucose 612 H* 462 H* (70-99(Fasting)) mg/dl POC Glucose 379 H* (70-99) mg/dl Calcium 8.9 8.8 (8.6-10.3) mg/dl Phosphorus 4.0 (2.5-4.9) mg/dl Magnesium 2.3 (1.7-2.4) mg/dl Total Bilirubin 0.5 (0.2-1.0) mg/dl AST 38 (13-39) U/L ALT 26 (7-52) U/L Alkaline Phosphatase 117 H (34-104) U/L Troponin I High Sens 7.9 (0-14) pg/ml Total Protein 7.0 (6.0-8.3) gm/dl Albumin 4.1 (3.4-5.0) gm/dl Globulin 2.9 (2.5-4.0) gm/dl Albumin/Globulin Ratio 1.4 (0.9-2) Lipase 29 (11-82) U/L Blood Parasites ID Cancelled 05/26/25 05/26/25 05/26/25 Range/Units 18:14 19:11 20:19 WBC RBC Hgb Hct MCV MCH MCHC RDW Std Deviation RDW Coeff of Rian Plt Count MPV Immature Gran % (Auto) Neut % (Auto) Lymph % (Auto) [place] % (Auto) Eos % (Auto) Baso % (Auto) Neut # (Auto) Lymph # (Auto) [place] # (Auto) Eos # (Auto) Baso # (Auto) Immature Gran # (Auto) Absolute Nucleated RBC Nucleated RBC % (auto) Neutrophils % (Manual) Band Neutrophils % Lymphocytes % (Manual) Prolymphocyte % Reactive Lymphs % (Man) Monocytes % (Manual) Eosinophils % (Manual) Basophils % (Manual) Metamyelocytes % (Man) Myelocytes % (Man) Promyelocytes % (Man) Blast Cells % (Manual) Plasma Cell % (Manual) Other Cells % Nucleated RBC % Neutrophils # (Manual) Band Neutrophils # Total Absolute Neuts Lymphocytes # (Manual) Prolymphocyte # Reactive Lymphs # Total Abs Lymphocytes Monocytes # (Manual) Eosinophils # (Manual) Basophils # (Manual) Metamyelocytes # (Man) Myelocytes # (Manual) Promyelocytes # (Man) Blast Cells # (Man) Plasma Cell # (Manual) Other Cells # Nucleated RBCs # (Man) Hypersegmented Neuts Hyposegmented Neuts Hypogranular Neuts Large Granular Lymphs # Lrg Granular Lymphs Hairy Cells Smudge Cells Toxic Granulation Toxic Vacuolation Dohle Bodies Clarissa Rods Platelet Estimate Hypogranular Platelets Giant Platelets Platelet Satelliting RBC Morphology Polychromasia Hypochromasia Poikilocytosis Basophilic Stippling Anisocytosis Microcytosis Macrocytosis Spherocytes Pappenheimer Bodies Sickle Cells Target Cells Tear Drop Cells Ovalocytes Stomatocytes [place] Bodies Echinocytes Acanthocytes (Spur) Rouleaux RBC Agglutinates Schistocytes Sezary Cell PT (9.0-12.0) Seconds INR (0.9-1.1) VBG pH (7.36-7.41) Sodium (136-145) mmol/L Potassium (3.5-5.1) mmol/L Chloride (98-107) mmol/L Carbon Dioxide (21-32) mmol/L Anion Gap (3-11) BUN (6-23) mg/dl Creatinine (0.6-1.2) mg/dl Est Cr Clr Drug Dosing ml/min eGFR BUN/Creatinine Ratio (10-20) Glucose (70-99(Fasting)) mg/dl POC Glucose 384 H* 354 H* 322 H* (70-99) mg/dl Calcium (8.6-10.3) mg/dl Phosphorus (2.5-4.9) mg/dl Magnesium (1.7-2.4) mg/dl Total Bilirubin (0.2-1.0) mg/dl AST (13-39) U/L ALT (7-52) U/L Alkaline Phosphatase (34-104) U/L Troponin I High Sens (0-14) pg/ml Total Protein (6.0-8.3) gm/dl Albumin (3.4-5.0) gm/dl Globulin (2.5-4.0) gm/dl Albumin/Globulin Ratio (0.9-2) Lipase (11-82) U/L Blood Parasites ID Administered Medications Sodium Chloride (Nss) 500 mls @ 100 mls/hr IV .Q5H ISAK Stop: 05/27/25 00:59 Last Admin: 05/26/25 20:38 Dose: 100 mls/hr Documented By: MARCI Discontinued Medications Sodium Chloride (Nss) 500 mls @ 999 mls/hr IV .Q31M ONE Stop: 05/26/25 16:02 Last Infusion: 05/26/25 16:55 Dose: Infused Documented By: Admin: 05/26/25 15:52 Dose: 999 mls/hr Documented By: KENNETH Insulin Human Regular 250 (units/ Sodium Chloride) 250 mls @ 8 mls/hr IV .Q24H ISAK; Protocol Stop: 06/25/25 17:14 Last Admin: 05/26/25 20:24 Dose: Not Given Documented By: MARCI Co-signed By: MICHAEL Miscellaneous (Stat Iv Infusion Titration Per Protocol) 1 each N/A NOW STA Stop: 05/26/25 17:16 Last Admin: 05/26/25 20:25 Dose: Not Given Documented By: MARCI Morphine Sulfate (Morphine Sulfate 4 Mg/Ml 1 Ml Carp\\Vial) 4 mg IV NOW STA Stop: 05/26/25 15:33 Last Admin: 05/26/25 15:52 Dose: 4 mg Documented By: KENNETH Ondansetron HCl (Ondansetron Inj 2 Mg/Ml 2 Ml Vial) 4 mg IV NOW STA Stop: 05/26/25 15:33 Last Admin: 05/26/25 15:52 Dose: 4 mg Documented By: KENNETH Potassium Chloride (Potassium Chloride Crtab 20 Meq Tabcr) 40 meq PO NOW STA Stop: 05/26/25 20:00 Last Admin: 05/26/25 20:38 Dose: 40 meq Documented By: MARCI Imaging Data Radiologist's Impression: Chest X-Ray 05/26/25 15:23 XR chest 1V portable CLINICAL HISTORY: Chest pain, nonspecific COMPARISON STUDY: 07/24/2024 FINDINGS: Stable pacemaker. Heart size and pulmonary vasculature are normal. No consolidation or pleural effusion. No pneumothorax. Stable old healed fracture proximal left humerus. IMPRESSION: No acute findings. ACT 112: Negative or not required by law. Electronically signed by: Piter Chavarria M.D. 05/26/2025 3:[address] 05/26/25 15:31 Technique: Axial computed tomography images were obtained of the brain without intravenous contrast. Findings: There is diffuse cerebral atrophy, within expected limits for the patient's age. Areas of decreased attenuation are seen within the periventricular white matter, likely representing chronic small vessel ischemic disease. There is no definite sign of acute or old infarction. No intracranial hemorrhage is evident. No definite mass lesion is seen on this noncontrast examination. There is no midline shift or other form of herniation. No hydrocephalus is seen. No fracture is identified. The orbits and the visualized paranasal sinuses appear unremarkable. The mastoid air cells appear clear. Impression: 1. Cerebral atrophy and chronic small vessel ischemic disease 2. Otherwise unremarkable noncontrast CT of the brain Electronically signed by Vidal Wong 05-26-2025 4:22 PM Discharge Plan Visit Data Chief Complaint: Chest Pain Stated Complaint: CONFUSION,HEADACHE,CHEST PAINS ED Provider: Francisco Haywood Discharge Problem: Acute hyperglycemia Patient Disposition: Admitted As Inpatient Condition: Fair Discharge Instructions Interventions: ED Discharge Assessment Last Done: 05/26/25 21:32 Forms Stand Alone Forms: [employer] Prescriptions Prescriptions: No Action Phazyme 250 mg capsule 250 mg PO BID PRN (Reason: abdominal distention) Qty: 30 1RF aspirin 81 mg tablet,delayed release (DR/EC) 81 mg PO QAM Qty: 30 11RF atorvastatin 80 mg tablet 80 mg PO QPM Qty: 30 11RF cholecalciferol (vitamin D3) 62.5 mcg (2,500 unit) capsule 62.5 mcg PO DAILY Qty: 30 11RF cyanocobalamin (vitamin B-12) 1,000 mcg tablet 1,000 mcg PO QAM Qty: 30 11RF duloxetine 60 mg capsule,delayed release(DR/EC) 60 mg PO QAM Qty: 30 11RF ezetimibe [Zetia] 10 mg tablet 10 mg PO HS Qty: 30 11RF multivitamin [Multiple Vitamins] Tablet 1 tab PO QAM Qty: 30 11RF (DME) BD AutoShield Duo Pen Needle 30 gauge x 3/16" needle See Rx Instructions .Route Qty: 200 3RF Rx Instructions: Use two per day with insulin injections Motegrity 2 mg tablet 2 mg PO QAM Qty: 90 3RF Rx Instructions: TAKE 1 TABLET EVERY MORNING buspirone 5 mg tablet 5 mg PO BID PRN (Reason: anxiety) Qty: 60 5RF empagliflozin 25 mg tablet 25 mg PO DAILY Qty: 30 3RF nitroglycerin 0.4 mg tablet, sublingual 0.4 mg sublingual Q5M PRN (Reason: chest pain) Qty: 10 0RF Rx Instructions: do not exceed 3 doses per episode ipratropium bromide 21 mcg (0.03 %) spray,non-aerosol 2 spray intranasal BID PRN (Reason: runny nose) Qty: 30 6RF Rx Instructions: administer into each nostril gabapentin 600 mg tablet 600 mg PO TID Qty: 90 5RF Rx Instructions: TOTAL DOSE 900 MG--TAKES WITH 300 MG CAP. gabapentin 300 mg capsule 300 mg PO TID Qty: 90 5RF Rx Instructions: TOTAL DOSE 900 MG--TAKES WITH 600 MG CAP. Advair HFA 230-21 mcg/actuation HFA aerosol inhaler 2 inh inhalation BID 90 Days Qty: 3 3RF Spiriva Respimat 2.5 mcg/actuation mist 2 puff INH QAM Qty: 3 3RF ondansetron 4 mg tablet,disintegrating 4 mg PO Q8H PRN (Reason: Nausea And Vomiting) Qty: 120 3RF acetaminophen 650 mg tablet extended release 650 mg PO DAILY PRN (Reason: PAIN/FEVER) levalbuterol HCl 0.63 mg/3 mL solution for nebulization 0.63 mg INH TID PRN (Reason: shortness of breath or wheezing) Qty: 360 5RF ipratropium bromide 0.02 % solution 2.5 ml inhalation QID PRN (Reason: shortness of breath or wheezing) Qty: 75 6RF Nurtec ODT 75 mg tablet,disintegrating 75 mg PO DAILY PRN (Reason: migraine headache) Qty: 8 5RF Rx Instructions: 75mg po once a day prn acute migraine famotidine 40 mg tablet 40 mg PO BID PRN (Reason: heartburn) Qty: 60 2RF dexlansoprazole [Dexilant] 60 mg capsule,biphase delayed releas 60 mg PO QAM Qty: 90 3RF valacyclovir 1 gram tablet 2,000 mg PO BID PRN (Reason: cold sores) 1 Days Qty: 4 3RF Rx Instructions: For cold sore furosemide 20 mg tablet 20 mg PO QAM Qty: 90 3RF magnesium oxide 400 mg magnesium capsule 400 mg PO DAILY Qty: 90 3RF metoprolol succinate 50 mg tablet extended release 24 hr 50 mg PO QAM Qty: 90 3RF Entresto 49-51 mg tablet 1 tab PO BID Qty: 180 3RF Hold Instructions: Hold until you see Dr West in follow-up spironolactone 25 mg tablet 25 mg PO QAM Qty: 90 3RF Hold Instructions: Hold until you see Dr West in follow-up ticagrelor 90 mg tablet 90 mg PO BID Qty: 180 3RF polyethylene glycol 3350 [Miralax] 17 gram/dose Powder 17 g PO QAM melatonin 3 mg Tablet 6 mg PO HS Humulin R U-500 (Conc) Kwikpen 500 unit/mL (3 mL) insulin pen 70 unit subcut BIDM albuterol sulfate [Ventolin HFA] 90 mcg/actuation HFA aerosol inhaler 2 inh inhalation Q4H PRN (Reason: SOB) Rx Instructions: USE 2 INHALATIONS EVERY 4 HOURS NEEDED FOR SHORTNESS OF BREATH OR WHEEZING Referrals Referrals: Millie Wilkes MD [Primary Care Provider] -
[2025-05-26] MEDS: MoRPHine SULFATE 4 MG/ML 1 ML CARP\\VIAL IV STA (15:52)
[2025-05-26] MEDS: SODIUM CHLORIDE 0.9% 500 ML IV ONE (15:52)
[2025-05-26] MEDS: ONDANSETRON INJ 2 MG/ML 2 ML VIAL IV STA (15:52)
--- NOTE | 2025-05-26 15:52 | XRay Report ---
XR chest 1V portable CLINICAL HISTORY: Chest pain, nonspecific COMPARISON STUDY: 07/24/2024 FINDINGS: Stable pacemaker. Heart size and pulmonary vasculature are normal. No consolidation or pleu ral effusion. No pneumothorax. Stable old healed fracture proximal left humerus. IMPRESSION: No acute findings. ACT 112: Negative or not required by law. Electronically signed by: Piter Chavarria M.D. 05/26/2025 3:51 PM
--- NOTE | 2025-05-26 16:22 | CT Scan Report ---
Technique: Axial computed tomography images were obtained of the brain without intravenous contrast. Findings: There is diffuse cerebral atrophy, within expected limits for the patient's age. Areas of decreased attenuation are seen within the periventricular white matter, likely representing chronic small vessel ischemic disease. There is no definite sign of acute or old infarction. No intracranial hemorrhage is evident. No definite mass lesion is seen on this noncontrast examination. There is no midline shift or other form of herniation. No hydrocephalus is seen. No fracture is identified. The orbits and the visualized paranasal sinuses appear unremarkable. The mastoid air cells appear clear. Impression: 1. Cerebral atrophy and chronic small vessel ischemic disease 2. Otherwise unremarkable noncontrast CT of the brain Electronically signed by Vidal Wong 05-26-2025 4:22 PM
[2025-05-26 17:07] LABS: Albumin Globulin Ratio 1.4 (0.9-2); BUN Creatinine Ratio 27.2 (10-20); Bilirubin,Total 0.5 mg/dl (0.2-1.0); Calcium 8.9 mg/dl (8.6-10.3); Creatinine Clr Calc Pharmacy 48.8 ml/min; Globulin 2.9 gm/dl (2.5-4.0); Potassium 3.9 mmol/L (3.5-5.1)
[2025-05-26 17:11] LABS: Troponin I High Sensitivity 7.9 pg/ml (0-14)
[2025-05-26 17:12] LABS: INR 0.9 (0.9-1.1)
[2025-05-26] MEDS ORDERED: PHARMACY GLYCEMIC MGMT CONSULT PRN (17:15)
[2025-05-26 18:34] LABS: Basophils # (auto) 0.06 K/uL (0.00-0.20); Eosinophils # (auto) 0.17 K/uL (0.00-0.50); Eosinophils % (auto) 2.8 %; Hemoglobin 13.1 g/dl (12.0-16.0); Immature Granulocytes # (auto) 0.03 K/uL (0.01-0.20); Immature Granulocytes % (auto) 0.5 %; Lymphocytes % (auto) 32.4 %; Mean Corpuscular Hemoglobin 28.3 pg (25.0-34.0); Mean Corpuscular Hgb Conc 32.8 g/dL (32.0-36.0); Mean Corpuscular Volume 86.4 fL (80.0-100.0); Mean Platelet Volume 10.4 fL (9.4-12.4); Monocytes # (auto) 0.49 K/uL (0.11-0.59); Monocytes % (auto) 7.9 %; Neutrophils # (auto) 3.43 K/uL (1.40-6.50); Neutrophils % (auto) 55.4 %; Platelet Count 256 K/uL (130-400); RDW Coefficient of Variation 14.6 % (11.5-14.5); RDW Standard Deviation 46.5 fL (36.4-46.3); Red Blood Count 4.63 M/uL (4.20-5.40); White Blood Count 6.18 K/ul (4.8-10.8)
--- NOTE | 2025-05-26 18:54 | History & Physical Report ---
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: (4) Dysphagia: (5) Head trauma: (6) Frequent falls: (7) Hyponatremia: (8) CAD (coronary artery disease): (9) Pacemaker: (10) HFrEF (heart failure with reduced ejection fraction): (11) Cerebrovascular disease: (12) Depression with anxiety: Sheridan Vergara is an 80yo female with PMHx CAD with MIx3 and drug-eluting stents of prox LAD and prox circumflex, HFrEF 40-45% in Oct 2024, poorly controlled DM2 with A1c 15.7%, HTN, and HLD, here for fall with head trauma on Wednesday 05/23 and intermittent bouts of central non-radiating chest tightness over the past 2 days, being admitted for workup of her chest tightness and medical stabilization of her diabetes. #Chest tightness, CAD hx #Dysphagia with known GERD Cardiac: Negative troponin, EKG with no acute changes makes this less likely a cardiac etiology, but with her extensive CAD history must have a low threshold for further workup and intervention - trop in AM - continue tele monitoring - continue home CAD regimen GI: known dysphagia and GERD, swallow study 05/05/25 showing esophageal motility dysfunction, thereafter placed on dexlansoprazole PPI - considering GI causes of chest tightness such as esophageal spasm, GERD exacerbation, and hiatal hernia (small one noted on CXR) Protonix 40mg qAM while inpatient, may have nitroglycerin for onset of the pain as this can relieve esophageal spasm pain as well as anginal pain Consider esophageal manometry but can be done outpatient Diet: heart healthy, DM2, soft bite-sized diet based on swallow study recs- continue as tolerated Pain control with tylenol, nitroglycerin, morphine IV prn Zofran prn for nausea/vomiting #Poorly-controlled DM2 A1c 15.7, on Humulin R U-500 70U in AM and afternoon with meals, did not take 05/26 AM dose but did take afternoon dose - glucose improvin -> 462 after home PM insulin dose - Basal (Lantus 40U) and bolus insulin ordered: -Goal BSG Range: Low 110 mg/dL, High 140mg/dL --Correction Factor: 20 mg/dL/unit --Carbohydrate ratio = 7 g/unit --BSGs ACHS if eating, q6h if npo Diet: heart healthy, DM2, soft bite-sized as tolerated Given 40meq KCl, mIVF 500cc at 100cc/hr, consider additional mIVF 05/27 if PO intake inadequate q4 BMP, adjust frequency per stabilizing glucose and electrolytes #Fall with head trauma, headache Falling more frequently in the past year, L head trauma from fall due to feeling off balance, likely due to L knee instability but no reported L knee injury or trauma CT head negative for acute changes, though positive for cerebral atrophy and chronic small vessel ischemic disease C-spine xr ordered, pending read - moderate headache: pain control with tylenol, toradol IV prn - PT/OT ordered, evaluate if acute rehab is necessary Will be having new 3x weekly home health services starting Wednesday 05/30 #Hyponatremia 130 -> 133 s/p 500cc NS bolus - corrected sodium based on hyperglycemia -> WNL - giving additional 500cc NS at 100cc/hr - BMP in AM Chronic, stable: COPD- continue home regimen HTN- continue home regimen Migraines- rimegepant prn or hospital equivalent for acute migraine Peripheral neuropathy- continue gabapentin as prescribed Anxiety- continue buspar as prescribed Code status: full FEN/GI: heart healthy and DM2 diet, soft bite-sized VTE ppx: SCDs History of Present Illness Chief Complaint: chest tightness, fall w/ head trauma Primary Care Provider: Millie Wilkes MD Ursula is an 80yo female with PMHx CAD with MIx3 and drug-eluting stents of prox LAD and prox circumflex, HFrEF 40-45% in Oct 2024, poorly controlled DM2 with A1c 15.7%, HTN, and HLD, here for 1. intermittent bouts of central non-radiating chest tightness over the past 2 days and 2. fall with head trauma on Wednesday 05/23. Incidentally found to have glucose in the 600s and A1c 15.7. Ursula is being admitted for evaluation and treatment of her chest tightness and medical stabilization of her chronic conditions. Chest tightness: endorses it started yesterday 05/25 around 4pm when she was lying down, notes it was an 8/10 "squeezing" and "tightness" in the center of her chest, denies any radiation but endorses it felt like her prior heart attacks. She took a nitro after about 10min which relieved it within 20min. Then this morning she felt the same pain when she was making her morning tea, took a nitro again shortly after but the pain lasted for about 45min before resolving. She told her dough maker about the instances of chest tightness, which concerned her and took pt to the ER. Of note she did have a video swallow study done on 05/03/25 showing evidence of pharyngeal dysphagia. Also has a known history of GERD on a once daily PPI. Fall w/ head trauma: Wednesday 05/23 she was outside going to water her plants when her L knee "gave out" resulting in L knee trauma followed by L-sided head trauma. Endorses she may have lost consciousness for a second after hitting her head as she recalls falling and hitting her L knee, and getting back up, but not the actual head trauma. However she realized she hit her head when she felt a painful bump on the left side of her head. - states she has been having a moderate headache since the head trauma - endorses she has been falling more frequently in the past 12mos without a john r cause, but does note her L knee has been giving out more frequently, though denies any L knee trauma or injury in the past DM2: endorses taking Humulin R U-500 70U subQ at breakfast and lunchtime, denies any oral diabetes medications. - states she did not take her AM dose this morning 05/26 because she wasn't feeling well with her headache, but endorses she did take her afternoon dose Home/life: endorses she had been under more stress recently as she had a divorce within the last year and her daughter hasn't visited her in months. - lives in a [place]floor ranch without any stairs or steps, primarily uses a cane to get around, no home O2 requirement - notes she will be having new home health services 3 days a week starting Wednesday 05/30 ER course: given 500cc NS bolus, morphine 4mg IV, and zofran 4mg IV - CT head negative for acute pathology - CXR negative for acute pathology - no IV insulin was given due to improving glucose upon recheck Allergies Allergy/AdvReac Type Severity Reaction Status Date / Time buspirone Allergy Intermediate itchy all Verified 05/26/25 19:00 over and heart palpitaitons with tachycardia levofloxacin Allergy Intermediate ITCHY HIVES Verified 05/26/25 19:00 ofloxacin Allergy Intermediate RASH Verified 05/26/25 19:00 pioglitazone Allergy Intermediate ITCHING Verified 05/26/25 19:00 Sulfa (Sulfonamide Allergy Intermediate itchy Verified 05/26/25 19:00 Antibiotics) Home Medications Medication Instructions Recorded Confirmed Type polyethylene glycol 3350 17 17 g PO QAM 05/19/20 05/26/25 History gram/dose oral powder (Miralax) ondansetron 4 mg disintegrating 4 mg PO Q8H PRN Nausea And 12/24/23 05/26/25 Rx tablet Vomiting #120 tabs fluticasone propionate 230 2 inh inhalation BID 90 days #3 03/16/24 05/26/25 Rx mcg-salmeterol 21 mcg/actuation Inhalers HFA inhaler (Advair HFA) tiotropium bromide 2.5 2 puff inhalation QAM #3 Inhalers 03/16/24 05/26/25 Rx mcg/actuation mist for inhalation (Spiriva Respimat) famotidine 40 mg tablet 40 mg PO BID PRN heartburn #60 tabs 05/26/24 05/26/25 Rx albuterol sulfate 90 mcg/actuation 2 inh inhalation Q4H PRN SOB 05/27/24 05/26/25 History aerosol inhaler (Ventolin HFA) simethicone 250 mg capsule 250 mg PO BID PRN abdominal 06/23/24 05/26/25 Rx (Phazyme) distention #30 caps aspirin 81 mg tablet,delayed 81 mg PO QAM #30 tabs 08/13/24 05/26/25 Rx release atorvastatin 80 mg tablet 80 mg PO QPM #30 tabs 08/13/24 05/26/25 Rx cholecalciferol (vitamin D3) 62.5 62.5 mcg PO DAILY #30 caps 08/13/24 05/26/25 Rx mcg (2,500 unit) capsule cyanocobalamin (vitamin B-12) 1,000 mcg PO QAM #30 tabs 08/13/24 05/26/25 Rx 1,000 mcg tablet duloxetine 60 mg capsule,delayed 60 mg PO QAM #30 caps 08/13/24 05/26/25 Rx release ezetimibe 10 mg tablet (Zetia) 10 mg PO HS #30 tabs 08/13/24 05/26/25 Rx multivitamin (Multiple Vitamins 1 tab PO QAM #30 tabs 08/13/24 05/26/25 Rx tablet) furosemide 20 mg tablet 20 mg PO QAM #90 tabs 08/16/24 05/26/25 Rx magnesium oxide 400 mg PO DAILY #90 caps 08/16/24 05/26/25 Rx metoprolol succinate 50 mg 50 mg PO QAM #90 tabs 08/16/24 05/26/25 Rx tablet,extended release 24 hr sacubitril 49 mg-valsartan 51 mg 1 tab PO BID #180 tabs 08/16/24 05/26/25 Rx tablet (Entresto) spironolactone 25 mg tablet 25 mg PO QAM #90 tabs 08/16/24 05/26/25 Rx ticagrelor 90 mg tablet 90 mg PO BID #180 tabs 08/16/24 05/26/25 Rx valacyclovir 1 gram tablet 2,000 mg (2 x 1 gram) PO BID PRN 09/14/24 05/26/25 Rx cold sores 1 day #4 tabs ipratropium bromide 0.02 % 2.5 ml inhalation QID PRN 09/23/24 05/26/25 Rx solution for inhalation shortness of breath or wheezing #75 mL levalbuterol HCl 0.63 mg/3 mL 0.63 mg (3 mL) inhalation TID PRN 09/23/24 05/26/25 Rx solution for nebulization shortness of breath or wheezing #360 mL rimegepant 75 mg disintegrating 75 mg PO DAILY PRN migraine 09/29/24 05/26/25 Rx tablet (Nurtec ODT) headache #8 tabs pen needle,diabetic dual safty 30 #200 ea 12/30/24 04/26/25 Rx gauge x 3/16" (BD AutoShield Duo Pen Needle) prucalopride 2 mg tablet 2 mg PO QAM #90 tabs 01/05/25 05/26/25 Rx (Motegrity) buspirone 5 mg tablet 5 mg PO BID PRN anxiety #60 tabs 02/04/25 05/26/25 Rx dexlansoprazole 60 mg 60 mg PO QAM #90 caps 03/14/25 05/26/25 Rx capsule,biphase delayed release (Dexilant) empagliflozin 25 mg tablet 25 mg PO DAILY Coronary Artery 03/29/25 05/26/25 Rx Disease #30 tabs acetaminophen 650 mg 650 mg PO DAILY PRN PAIN/FEVER 04/12/25 05/26/25 History tablet,extended release ipratropium bromide 21 mcg (0.03 2 spray intranasal BID PRN runny 04/26/25 05/26/25 Rx %) nasal spray nose #30 mL nitroglycerin 0.4 mg sublingual 0.4 mg sublingual Q5M PRN chest 04/26/25 05/26/25 Rx tablet pain #10 tabs gabapentin 300 mg capsule 300 mg PO TID #90 caps 04/27/25 05/26/25 Rx gabapentin 600 mg tablet 600 mg PO TID #90 tabs 04/27/25 05/26/25 Rx insulin regular hum U-500 conc 500 70 unit subcut BIDM 05/26/25 05/26/25 History unit/mL(3 mL) subcut pen (Humulin R U-500 (Conc) Insulin Kwikpen) melatonin 3 mg tablet 6 mg PO HS 05/26/25 05/26/25 History Past Med/Surg History Problem List (Updated 05/26/25 @ 20:13 by Xavier Flynn DO) Chest tightness 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 Head trauma Frequent falls Hx of myocardial infarction 10/2023, x2 Pacemaker 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 s/p Medtronic Tasha XT MRI Dual Chamber Pacemaker 04/12/21 LAST PACEMAKER CHECK 12/2021 Vitamin D deficiency Dysphagia Occipital neuralgia Cognitive impairment COPD (chronic obstructive pulmonary disease) Osteoporosis Diagnosed based on high FRAX score Spinal stenosis of lumbar region (~01/26/24) Paresthesia of right lower extremity Adjacent segment disease of lumbar spine with history of fusion procedure Lumbar radiculopathy Lumbar post-laminectomy syndrome History of lumbar fusion S/P coronary artery stent placement Oct 2023- 5 or 6 placed CAD (coronary artery disease) HFrEF (heart failure with reduced ejection fraction) Hyponatremia SIADH (syndrome of inappropriate ADH production) Poorly controlled type 2 diabetes mellitus Hypertension Cerebrovascular disease 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, history of retinal artery occlusion Gastroparesis Mitral regurgitation (Acute) Dyslipidemia (Chronic) Gastroesophageal reflux disease Depression with anxiety Medical History (Updated 05/26/25 @ 20:13 by Xavier Flynn DO) Gastroparesis Paresthesia of right lower extremity History of breast cancer ~2013, sx only Knee osteoarthritis History of fracture Humerus Chronic sinusitis with recurrent bronchitis Saline breast implant in situ Migraines Mixed conductive and sensorineural hearing loss of right ear with restricted hearing of left ear Eustachian tube dysfunction Chronic cough 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 west, [address] in 10/2023, [place] [facility] [place]few [place], unsure of how many" Hx of cardiac cath History of open reduction and internal fixation (ORIF) procedure left humerus and wrist>hardware intact (2 separate sx) Pacemaker Medtronic, placed 03/2021, follows with [facility] History of carotid endarterectomy right, 2013 History of breast reconstruction Bilateral, Dr. Barr, Allergsaul Style 410 implant, size unknown History of colonoscopy with polypectomy History of total hysterectomy with bilateral salpingo-oophorectomy (BSO) History of bilateral tubal ligation History of trigger finger x4--bilt hands History of surgery on left wrist plate in place duplicate History of carpal tunnel release of both wrists History of fusion of lumbar spine x4, most recent was 2021, [facility], L2-L4, L4-L5 hardware removal History of fusion of cervical spine ~2012, x3--"cant turn to the right" History of total right knee replacement (TKR) History of bladder suspension procedure History of esophagogastroduodenoscopy (EGD) History of cholecystectomy History of right breast biopsy malignant History of bilateral mastectomy h/o R breast CA-lymph node removal R side History of oral surgery gum sx History of bilateral cataract extraction Abdominoplasty (05/12/13) Family History Son Crohn's disease Sister Ulcerative colitis Family history of diabetes mellitus Mother Family history of diabetes mellitus Brother Family history of diabetes mellitus Other No family history of adverse response to anesthesia No family history of bleeding disorder Social History (Updated 05/26/25 @ 20:21 by Xavier Flynn DO) Smoking Status: Never smoker Second Hand Exposure: No; Do You Dip or Chew Tobacco: No; Hx Alcohol Use: Yes Alcohol type: beer Hx Substance Use: No Preferred Language: Maldivian Communication Ability: Effective Visual Impairment: No Limitations Territory Business Manager Required: No Beliefs That Will Affect Care: None marital status: marital status details: within the past year Current Living Situation: Alone current occupational status: retired current occupation: Retired Feels Safe at Home: Yes Diet: diabetic during the past year weight has: decreased > 10 lbs Dental Care, Regularly: Yes Physical Activity Frequency: Daily Seatbelt Use: always Sunscreen Use: Yes Assistive Devices: Cane and Walker Review of Systems Review of Systems: per HPI Physical Exam Physical Exam: Gen: A&Ox3, no acute distress HEENT: L parietal-temporal area 2x2cm tense and tender bump with ecchymosis, no bleeding or broken skin, no deformities; otherwise mildly dry mucus membranes, EOM intact, PERRL b/l CV: RRR, +s1/s2, no m/r/g, 2+ radial pulses, 2+ posterior tibial pulses Resp: clear to auscultation b/l, good equal air entry, no w/r/R GI/Abd: hypo-normoactive BS, abdomen soft, mild epigastric tenderness to palpation MSK: moderate tenderness to palpation of sternum, no ecchymosis or deformity seen; otherwise 5/5 strength in b/l UE and LE, no LE edema appreciated Neuro: no facial droop, speech intact, no focal deficits Psych: mood-affect congruence, good eye contact Results & Data Results & Data Vital Signs (Past 12 Hours) Vital Signs Temp Pulse BP Pulse Ox O2 Del Method 05/26/25 18:04 95 Room Air 05/26/25 18:04 Room Air 05/26/25 15:12 96 H 05/26/25 15:00 36.2 C L 137/89 Supervising Physician Co-Signing Physician Notes Patient seen and examined, chart reviewed, case discussed with Dr. Flynn and I agree with the assessment and plan as above. In brief, patient is an 80yo female with history of CAD, poorly controlled DM, HTN presenting with imbalance resulting in a fall 3 days ago as well as several episodes of left sided chest tightness. Hyperglycemic on arrival with BSG > 600 On exam she is resting comfortablly, NAD Skin - no rash HEENT - MMM, neck supple, no evidence of head trauma. Some tenderness of the posterior neck, no step-off or deformity Heart - +S1/S2, regular, some reproducible chest discomfort on exam Lungs - CTA Abd - soft, NT/ND Ext - warm, well perfused Labs and images reviewed Assessment/Plan Atypical chest pain - troponin WNL, EKG with no ischemic changes, reproducible component on exam. -Repeat troponin x 1 in AM Imbalance -PT/OT evaluation appreciated Hyperglycemia - patient on large doses of home insulin - U-500 70u BID. She reports that her sugar will be quite elevated before her insulin dose but then recovers after medication given. Last A1C=15.7 in December 2024 -Pharmacy glycemic management consultation appreciated -Continue IVF - NSS at 100mL/hr x 1.5L ordered -Remainder as above Resident Activity Tracking Resident Involvement: Resident Care Provided Care Provided: Adult Hospital Medicine (4) Dysphagia Dysphagia type: unspecified Qualified Code(s): R13.10 - Dysphagia, unspecified (5) Head trauma Encounter type: initial encounter Qualified Code(s): S09.90XA - Unspecified injury of head, initial encounter (8) CAD (coronary artery disease) Associated angina: unspecified whether angina present Coronary Disease- Associated Artery/Lesion type: [place] artery [place] vs. transplanted heart: [place] heart Qualified Code(s): I25.10 - Atherosclerotic heart disease of [place] coronary artery without angina pectoris
[2025-05-26 19:03] LABS: BUN Creatinine Ratio 27.7 (10-20); Calcium 8.8 mg/dl (8.6-10.3); Creatinine Clr Calc Pharmacy 54.1 ml/min; Magnesium 2.3 mg/dl (1.7-2.4); Potassium 3.6 mmol/L (3.5-5.1)
[2025-05-26] MEDS: INSULIN REGULAR 250 UNITS in SODIUM CHLORIDE 0.9% 247.5 ML IV SCH (20:24)
[2025-05-26] MEDS: STAT IV Infusion **Titration per Protocol STA (20:25)
[2025-05-26] MEDS: POTASSIUM CHLORIDE CRTAB 20 MEQ TABCR PO STA (20:38)
[2025-05-26] MEDS: SODIUM CHLORIDE 0.9% 500 ML IV SCH (20:38)
[2025-05-26] MEDS ORDERED: INSULIN ASPART PER UNIT CHARGE SC SCH (21:14)
[2025-05-26] MEDS ORDERED: CARBOHYDRATES FOR HYPOGLYCEMIA PO PRN ×2 (22:15→22:45)
[2025-05-26] MEDS ORDERED: GLUCAGON FOR INJ 1 MG VIAL SQ PRN ×2 (22:15→22:45)
[2025-05-26] MEDS ORDERED: GLUCOSE 10 TAB/TUBE PO PRN ×2 (22:15→22:45)
[2025-05-26] MEDS ORDERED: GLUCOSE 40% GEL 15 GM TUBE PO PRN ×2 (22:15→22:45)
[2025-05-26] MEDS ORDERED: DEXTROSE 50% 50 ML SYRINGE IV PRN ×2 (22:15→22:45)
[2025-05-26] MEDS ORDERED: MAGNESIUM HYDROXIDE SUSP 30 ML UDC PO PRN (22:45)
[2025-05-26] MEDS ORDERED: IPRATROPIUM BROMIDE NEB SOLN 0.02% 0.5MG/2.5ML VIAL INH PRN (22:45)
[2025-05-26] MEDS ORDERED: ALBUTEROL HFA 8 GM INHALER INH PRN (22:45)
[2025-05-26] MEDS ORDERED: MoRPHine SULFATE 2 MG/ML CARP IV PRN (22:45)
[2025-05-26] MEDS ORDERED: POLYETHYLENE (MIRALAX) 17 GM PACK PO PRN (22:45)
[2025-05-26] MEDS ORDERED: FAMOTIDINE 20 MG TAB PO PRN (22:45)
[2025-05-26] MEDS ORDERED: IPRATROPIUM BROMIDE NASAL SPRAY 0.03% 30 ML PRN (22:45)
[2025-05-26] MEDS ORDERED: NITROGLYCERIN SL 0.4 MG/TAB TAB SL PRN (22:45)
[2025-05-26] MEDS ORDERED: ONDANSETRON INJ 2 MG/ML 2 ML VIAL IV PRN (22:45)
[2025-05-26] MEDS: INSULIN ASPART PER UNIT CHARGE SC SCH (22:51)
[2025-05-26] MEDS ORDERED: SIMETHICONE 80 MG CHEW PO PRN (22:52)
[2025-05-26] MEDS: LANTUS PER UNIT CHARGE SQ ONE (22:56)
[2025-05-26] MEDS: INSULIN ASPART PER UNIT CHARGE SC ONE (22:56)
--- NOTE | 2025-05-26 23:06 | XRay Report ---
Exam(s): XR C SPINE, 4-5 views EXAM: XR Cervical Spine, 6 Views CLINICAL HISTORY: Reason for exam: fall w/ head trauma 05/23. TECHNIQUE: Frontal, lateral, swimmer's, bilateral oblique and odontoid views of the cervical spine. COMPARISON: Prior plain film images of the cervical spine from June 30, 2024. FINDINGS: Vertebrae: Patient is status post anterior fusion of C3-4 and C6-7. There is diffuse osteopenia throughout the visualized bones. No definite fracture. Normal alignment. Disc spaces: No acute findings. No significant narrowing. Soft tissues: Unremarkable. IMPRESSION: No evidence of acute cervical spine pathology. If there is continued clinical concern, a CT scan may be of benefit for further evaluation. Electronically signed by: Sangeetha Rogers MD 05/26/25 23:05 PM
[2025-05-26] MEDS: MELATONIN 3 MG TAB PO SCH (23:20)
[2025-05-26] MEDS: ACETAMINOPHEN 325 MG TAB PO PRN (23:20)
[2025-05-26] MEDS: EZETIMIBE 10 MG TAB PO SCH (23:22)
[2025-05-26] MEDS: GABAPENTIN 600 MG TAB PO SCH (23:22)
[2025-05-26] MEDS: VALSARTAN/SACUBITRIL 51/49 MG TAB PO SCH (23:22)
[2025-05-26] MEDS: TICAGRELOR 90 MG TAB PO SCH (23:23)
[2025-05-26] MEDS: GABAPENTIN 300 MG CAP PO SCH (23:23)
[2025-05-26] MEDS: ATORVASTATIN 40 MG TAB PO SCH (23:23)
[2025-05-26] MEDS ORDERED: SODIUM CHLORIDE 0.9% 500 ML IV SCH (23:24)
--- NOTE | 2025-05-26 23:25 | Billing Data ---
Date of Service May 26, 2025 Coding Level of Care Code 60310 IN/OBS CONSULT LVL 5,80M
[2025-05-27] MEDS: SODIUM CHLORIDE 0.9% 1,000 ML IV SCH (02:33)
[2025-05-27] MEDS: INSULIN ASPART PER UNIT CHARGE SC SCH (02:58)
[2025-05-27] MEDS ORDERED: INSULIN ASPART PER UNIT CHARGE SC SCH (04:00)
[2025-05-27] MEDS ORDERED: MULTIVITAMIN TAB PO SCH (09:00)
[2025-05-27] MEDS ORDERED: PRUCALOPRIDE 2 MG PO SCH (09:00)
[2025-05-27] MEDS: INSULIN HUMAN NPH SC SCH (09:01)
[2025-05-27] MEDS: ASPIRIN 81 MG ECTAB PO SCH (09:02)
[2025-05-27] MEDS: CHOLECALCIFEROL 25 MCG (1000 UNITS) TAB PO SCH (09:02)
[2025-05-27] MEDS: CYANOCOBALAMIN (B-12) 500 MCG TABLET PO SCH (09:03)
[2025-05-27] MEDS: EMPAGLIFLOZIN 25 MG TAB PO SCH (09:03)
[2025-05-27] MEDS: DULoxetine HCL 60 MG CAP PO SCH (09:03)
[2025-05-27] MEDS: UMECLIDINIUM BROMIDE 62.5MCG/BLISTER 7 PUFFS/INHALER INH SCH (09:03)
[2025-05-27] MEDS: PANTOprazole 40 MG TAB PO SCH (09:04)
[2025-05-27] MEDS: SPIRONOLACTONE 25 MG TAB PO SCH (09:04)
[2025-05-27] MEDS: MAGNESIUM OXIDE 400 MG TAB PO SCH (09:04)
[2025-05-27] MEDS: FLUTICASONE/VILANTEROL 100/25MCG 14 PUFFS/INHALER INH SCH (09:04)
[2025-05-27] MEDS: METOPROLOL SUCC 50MG EXT REL TAB PO SCH (09:05)
--- NOTE | 2025-05-27 15:19 | Hospitalist Progress Note ---
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: (4) Dysphagia: (5) Head trauma: (6) Frequent falls: (7) Hyponatremia: (8) CAD (coronary artery disease): (9) Pacemaker: (10) HFrEF (heart failure with reduced ejection fraction): (11) Cerebrovascular disease: (12) Depression with anxiety: Sheridan Vergara is an 80yo female with PMHx CAD with MIx3 and drug-eluting stents of prox LAD and prox circumflex, HFrEF 40-45% in Oct 2024, poorly controlled DM2 with A1c 15.7%, HTN, and HLD, here for fall with head trauma on Wednesday 05/23 and intermittent bouts of central non-radiating chest tightness over the past 2 days, being admitted for workup of her chest tightness and medical stabilization of her diabetes. #Chest tightness, history of CAD NSTEMI 2022, KRISH to LAD/KRISH to proximal Cx, KRISH to jailed diagonal, KRISH to ostial left main, KRISH to proximal LAD, aspiration thrombectomy of LCx stent 07/2024: 3 additional KRISH to LAD, occluded diagonal History of ischemic cardiomyopathy EF 25-30% 07/2024With interval improvement to LVEF 40-45% and severe apical hypokinesis and moderate inferior hypokinesis on 10/2024. Repeat limited echo for wall motion changes pending Patient has intermittent chest tightness which is not exercise associated, not associated with dyspnea/shortness of breath. She has 2 negative troponins, no acute EKG changes, and she does have a reproducible chest wall component of pain She does report that her symptoms similar to her past heart attack, although this did not have a reproducible component. She does not notice any association of these with exercise versus rest, but did improve with nitro DDx also includes GERD/adjustment GL spasm which would also improve with nitro Stress echo not able to be done until Friday. Patient prefers to return home with return precautions and outpatient stress test. Given that she does not have any exertional component, normal EKG, has not had recurrent pain, 2 negative troponins this is reasonable with strict return precautions to which she is agreeable. She does not have a ride home in 05/27, given she will be progressing to an outpatient stress test prefers an additional evening of observation regardless in case she has an episode for which she could get a stat EKG at the time. Metoprolol, Entresto, spironolactone, Jardiance Stat EKG and nitro if any recurrent pain #Dysphagia with known GERD -DDx of her pain does include esophageal spasm/GERD - GI: known dysphagia and GERD, swallow study 05/05/25 showing esophageal motility dysfunction, thereafter placed on dexlansoprazole PPI - Protonix 40mg qAM while inpatient, may have nitroglycerin for onset of the pain as this can relieve esophageal spasm pain as well as anginal pain. Follow-up for outpatient esophageal manometry #Poorly-controlled DM2 - A1c 15.7, on Humulin R U-500 70U in AM and afternoon with meals, did not take 05/26 AM dose but did take afternoon dose - Continue basal bolus insulin. Lantus 40 twice daily, SSI with goal [id number]. CF 20, carb ratio 7. Diet: heart healthy, DM2, soft bite-sized as tolerated #Fall with head trauma, headache Falling more frequently in the past year, L head trauma from fall due to feeling off balance, likely due to L knee instability but no reported L knee injury or trauma CThead no acute changes C-spine x-ray no acute findings. No midline neck tenderness at bedside evaluation Headache improved on reassessment - PT/OT ordered, evaluate if acute rehab is necessary -Will be having new 3x weekly home health services starting Wednesday 05/30 PT/OT noting close to baseline. Patient agreeable to [facility] on discharge #Hyponatremia 130 -> 133 s/p 500cc NS bolus - corrected sodium based on hyperglycemia -> WNL - Fluids discontinued Chronic, stable: COPD- continue home regimen HTN- continue home regimen Migraines- rimegepant prn or hospital equivalent for acute migraine Peripheral neuropathy- continue gabapentin as prescribed Anxiety- continue buspar as prescribed Code status: full FEN/GI: heart healthy and DM2 diet, soft bite-sized VTE ppx: SCDs Admission and Anticipated Discharge Date Admission Date: May 26, 2025 Subjective Pending seen at the bedside Feels well chest pain-free today Troponin negative PT/OT pending. With ambulatory trial did not have any recurrent chest pain Given her history and some intermittent chest pain with a similar quality to her SC, although not associated with exercise or shortness of breath, reasonable to pursue stress. Unfortunately this cannot be completed until Friday. Discussed for/benefits of inpatient monitoring and holding until Friday. She prefers to return home with outpatient stress test. Given that she has no acute EKG changes, no exercise associated pain, a reproducible component, and has been pain-free since admitting feel at this is reasonable with strict return precautions to which she is agreeable. Fortunately she is not able to get a ride to return home, and with her history would prefer observation for an additional night before outpatient follow-up. Physical Exam Physical Exam: General: A&Ox3. NAD. Cooperative. HEENT: Atraumatic, normocephalic. Patient and hearing grossly intact Pulm: CTAB A&P. -wheezes, -rales, -rhonchi. Symmetrical chest rise. No increase in work of breathing. No respiratory distress. Cardiac: RRR, -mrg. Radial pulses intact and symmetrical. Thoracic: Mild chest wall tenderness to palpation overlying the sternum. No crepitus Abdominal: Nontender, nondistended, soft. BS present. 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 Sensation intact to soft touch in hands and feet. No lower extremity edema. Results & Data Results & Data Vital Signs (Past 12 Hours) Vital Signs Temp Pulse Pulse Resp BP Pulse Ox O2 Del Method 05/27/25 14:35 36.4 C L 71 17 132/77 97 Room Air 05/27/25 13:05 67 05/27/25 11:25 36.7 C 75 18 105/77 95 Room Air 05/27/25 08:57 115/74 05/27/25 07:43 36.4 C L 73 18 89/60 L 97 Room Air 05/27/25 06:45 68 05/27/25 05:11 36.7 C 70 12 91/57 L 94 Room Air 05/27/25 04:39 36.7 C 71 18 91/57 L 95 Room Air PG Care Time/CCT Total # of Minutes Spent Total Time Spent with Patient: Total time spent is greater than 50% in coordination of care (as documented) at patient's floor/unit and/or counseling patient: Coding Level of Care Code 46533 SUB INP/OBS CARE 3/50MIN Diagnoses Chest tightness R07.89 Hx of myocardial infarction I25.2 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 E11.43; E11.65 Dysphagia, unspecified type R13.10 Dysphagia type: unspecified Traumatic injury of head, initial encounter S09.90XA Encounter type: initial encounter Frequent falls R29.6 Hyponatremia E87.1 Coronary artery disease involving [place] coronary artery of [place] heart, unspecified whether angina present I25.10 Associated angina: unspecified whether angina present Coronary Disease-Associated Artery/Lesion type: [place] artery [place] vs. transplanted heart: [place] heart Pacemaker Z95.0 HFrEF (heart failure with reduced ejection fraction) I50.20 Cerebrovascular disease I67.9 Depression with anxiety F41.8 (4) Dysphagia Dysphagia type: unspecified Qualified Code(s): R13.10 - Dysphagia, unsp ecified (5) Head trauma Encounter type: initial encounter Qualified Code(s): S09.90XA - Unspecified injury of head, initial encounter (8) CAD (coronary artery disease) Associated angina: unspecified whether angina present Coronary Disease- Associated Artery/Lesion type: [place] artery [place] vs. transplanted heart: [place] heart Qualified Code(s): I25.10 - Atherosclerotic heart disease of [place] coronary artery without angina pectoris
--- NOTE | 2025-05-27 15:19 | Pharmacy Report ---
Pharmacy Glycemic Short Note 2 - Date of Service May 27, 2025 - Glycemic Short BSG Results (Last 24 hours): 05/26/25 05/26/25 05/26/25 16:31 18:10 18:11 Glucose 612 H* 462 H* POC Glucose 379 H* 05/26/25 05/26/25 05/26/25 18:14 19:11 20:19 Glucose POC Glucose 384 H* 354 H* 322 H* 05/26/25 05/26/25 05/27/25 22:43 22:46 02:52 Glucose POC Glucose 429 H* 431 H* 183 H 05/27/25 05/27/25 05/27/25 04:37 08:11 11:45 Glucose POC Glucose 119 H 123 H 151 H OUTPATIENT ANTIDIABETIC REGIMEN: * Insulin U-500 70 units SQ BID * Jardiance 25mg PO daily * HbA1c pending (05/28/25) 15.7% (12/14/24) ASSESSMENT: * Ursula is an 80 year old female admitted with chest tightness/status post fall and hyperglycemia with a history of insulin dependent type 2 diabetes me llitus. Pharmacy has been consulted to assist with glycemic management while inpatient. * Fasting BSG this AM acceptable, given Lantus yesterday with hyperglycemia, insulin drip ordered but not started (On admission, AG minimally elevated, CO2 normal, and VBG pH normal). BSGs trended down overnight. Will utilize insulin NPH since U-500 home dose is small and NPH is a better surrogate for U500 than Lantus pharmacokinetically. Will initiate basal at approximately half of home dose. * NovoLog at a weight based stress of 3, no glycemic stressors noted. Continue Jardiance for HF/Diabetes. PLAN FOR INPATIENT GLYCEMIC CONTROL: * Hold outpatient U500, Continue Jardiance for HF/Diabetes. * Basal insulin * Insulin NPH 30 units SQ BID * Bolus insulin * NovoLog per scale ACHS or Q6hrs while NPO * Goal Range: Low 110 mg/dL - High 140 mg/dL * Correction Factor: 20 mg/dL/unit * Nutritional / Prandial insulin per carb ratio of 1 unit per 7 grams CHO consumed
--- NOTE | 2025-05-27 18:46 | XCELERA ---
[id number] \\[id number]
[2025-05-27 23:11] VITALS: RESP 16
--- NOTE | 2025-05-28 06:59 | Electrocardiogram Report ---
Test Reason : Blood Pressure : */* mmHG Vent. Rate : 71 BPM Atrial Rate : 71 BPM P-R Int : 182 ms QRS Dur : 104 ms QT Int : 432 ms P-R-T Axes : 77 -58 80 degrees QTcB Int : 469 ms Normal sinus rhythm Left anterior fascicular block Possible Lateral infarct , age undetermined Abnormal ECG When compared with ECG of 26-Jul-2024 11:16, No significant change was found Confirmed by Latrell Mcclelland ([id number]) on 05/28/2025 6:58:45 AM Referred By: REFERRED SELF Confirmed By: Latrell Mcclelland
--- NOTE | 2025-05-28 07:18 | Discharge Summary ---
Discharge Summary Date of Service May 28, 2025 Principal Dx & Hospital Course #1 = Principal Diagnosis (1) Chest tightness: (2) Hx of myocardial infarction: (3) 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: (4) Dysphagia: (5) Head trauma: (6) Frequent falls: (7) Hyponatremia: (8) CAD (coronary artery disease): (9) Pacemaker: (10) HFrEF (heart failure with reduced ejection fraction): (11) Cerebrovascular disease: (12) Depression with anxiety: Sheridan Vergara is an 80yo female with PMHx CAD with MIx3 and drug-eluting stents of prox LAD and prox circumflex, HFrEF 40-45% in Oct 2024, poorly controlled DM2 with A1c 15.7%, HTN, and HLD, here for fall with head trauma on Wednesday 05/23 and intermittent bouts of central non-radiating chest tightness over the past 2 days, being admitted for workup of her chest tightness and medical stabilization of her diabetes. To do as outpatient: Decrease Entresto dose, spironolactone dose decreased. Should have reevaluation as outpatient of blood pressure. 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 Repeat limited echo for wall motion changes pending Patient has intermittent chest tightness which is not exercise associated, not associated with dyspnea/shortness of breath. She has 2 negative troponins, no acute EKG changes, and she does have a reproducible chest wall component of pain. She does not notice any association of these with exercise versus rest, but did improve with nitro. DDx also includes GERD/adjustment GL spasm which would also improve with nitro Stress echo not able to be done until Friday. Patient prefers to return home with return precautions and outpatient stress test. Given that she does not have any exertional component, normal EKG, has not had recurrent pain, 2 negative troponins this is reasonable with strict return precautions to which she is agreeable. Metoprolol, Entresto, spironolactone, Jardiance continued. Patient was consistently fairly hypotensive with blood pressures less than 100, although asymptomatic with this. Her Entresto/spironolactone were dose reduced. Blood pressure was normal at time of discharge 114/75, heart rate 68. May follow-up with her power mule operator and continue current dose if tolerating well versus dose increase increased if hemodynamics permit Patient felt well, was dressed walking around the room independently, and eager for discharge at time of morning discharge evaluation. #Dysphagia with known GERD -DDx of her pain does include esophageal spasm/GERD - GI: known dysphagia and GERD, swallow study 05/05/25 showing esophageal motility dysfunction, thereafter placed on dexlansoprazole PPI - Protonix 40mg qAM while inpatient, may have nitroglycerin for onset of the pain as this can relieve esophageal spasm pain as well as anginal pain. Follow-up for outpatient esophageal manometry #Poorly-controlled DM2 - A1c 15.7, on Humulin R U-500 70U in AM and afternoon with meals, did not take 05/26 AM dose but did take afternoon dose - Continue basal bolus insulin. Lantus 40 twice daily, SSI with goal [id number]. CF 20, carb ratio 7. Diet: heart healthy, DM2, soft bite-sized as tolerated #Fall with head trauma, headache Falling more frequently in the past year, L head trauma from fall due to feeling off balance, likely due to L knee instability but no reported L knee injury or trauma. She denies presyncope, however concerned that her low blood pressure could be contributing to her balance and falls coupled with her left knee instability. Entresto and spironolactone dose decreased for low BP. She was able to ambulate independently with PT and was recommended for return home CThead no acute changes C-spine x-ray no acute findings. No midline neck tenderness at bedside evaluation Headache improved on reassessment -Will be having new 3x weekly home health services starting Wednesday 05/30 PT/OT noting close to baseline. Patient agreeable to [facility] on discharge. Eager for discharge morning of 05/28 #Hyponatremia 130 -> 133 s/p 500cc NS bolus - corrected sodium based on hyperglycemia -> WNL - Fluids discontinued Chronic, stable: COPD- continue home regimen HTN-adjustments made as noted Migraines- rimegepant prn or hospital equivalent for acute migraine Peripheral neuropathy- continue gabapentin as prescribed Anxiety- continue buspar as prescribed Admission HPI Per Admitting Provider Ursula is an 80yo female with PMHx CAD with MIx3 and drug-eluting stents of prox LAD and prox circumflex, HFrEF 40-45% in Oct 2024, poorly controlled DM2 with A1c 15.7%, HTN, and HLD, here for 1. intermittent bouts of central non-radiating chest tightness over the past 2 days and 2. fall with head trauma on Wednesday 05/23. Incidentally found to have glucose in the 600s and A1c 15.7. Ursula is being admitted for evaluation and treatment of her chest tightness and medical stabilization of her chronic conditions. Chest tightness: endorses it started yesterday 05/25 around 4pm when she was lying down, notes it was an 8/10 "squeezing" and "tightness" in the center of her chest, denies any radiation but endorses it felt like her prior heart attacks. She took a nitro after about 10min which relieved it within 20min. Then this morning she felt the same pain when she was making her morning tea, took a nitro again shortly after but the pain lasted for about 45min before resolving. She told her ethics officer about the instances of chest tightness, which concerned her and took pt to the ER. Of note she did have a video swallow study done on 05/03/25 showing evidence of pharyngeal dysphagia. Also has a known history of GERD on a once daily PPI. Fall w/ head trauma: Wednesday 05/23 she was outside going to water her plants when her L knee "gave out" resulting in L knee trauma followed by L-sided head trauma. Endorses she may have lost consciousness for a second after hitting her head as she recalls falling and hitting her L knee, and getting back up, but not the actual head trauma. However she realized she hit her head when she felt a painful bump on the left side of her head. - states she has been having a moderate headache since the head trauma - endorses she has been falling more frequently in the past 12mos without a clear cause, but does note her L knee has been giving out more frequently, though denies any L knee trauma or injury in the past DM2: endorses taking Humulin R U-500 70U subQ at breakfast and lunchtime, denies any oral diabetes medications. - states she did not take her AM dose this morning 05/26 because she wasn't feeling well with her headache, but endorses she did take her afternoon dose Home/life: endorses she had been under more stress recently as she had a divorce within the last year and her daughter hasn't visited her in months. - [place] in a [place]floor ranch without any stairs or steps, primarily uses a cane to get around, no home O2 requirement - notes she will be having new home health services 3 days a week starting Wednesday 05/30 ER course: given 500cc NS bolus, morphine 4mg IV, and zofran 4mg IV - CT head negative for acute pathology - CXR negative for acute pathology - no IV insulin was given due to improving glucose upon recheck Discharge Exam General: A&Ox3. NAD. Cooperative. HEENT: Atraumatic, normocephalic. Patient and hearing grossly intact Pulm: CTAB A&P. -wheezes, -rales, -rhonchi. Symmetrical chest rise. No increase in work of breathing. No respiratory distress. Cardiac: RRR, -mrg. Radial pulses intact and symmetrical. Thoracic: Mild chest wall tenderness to palpation overlying the sternum. No crepitus Abdominal: Nontender, nondistended, soft. BS present. Extremities: Hand Router Operator strength, elbow flexion/attention, hip flexion, ankle dorsiflexion/plantarflexion 5/5 without asymmetry. Sensation intact to soft touch in hands and feet. No lower extremity edema. Discharge Plan Discharge Items Patient Disposition: Home - Home Health Services Reason For Visit: CHEST TIGHTNESS, FALLS Discharge Diagnosis: Chest Tightness Condition on Discharge: Fair Activity: Per Instructions section Non-emergency contact: Primary Care Provider and Counseling Program Leader Call non-emergency contact if: you have any medication questions, your symptoms worsen and your pain is not controlled Follow-up/Referrals: Heavenly Villaseñor PA-C [Physician Personal Care Worker] - (within 1 week) Millie Wilkes MD [Primary Care Provider] - Diet: Carb Consistent or DM2 and Heart Healthy Addtl Attending Provider Instructions: You are seen in the hospital for intermittent chest discomfort which was not associated with exercise. You are able to ambulate with physical therapy with good strength and did not have any chest pain while ambulating. You were noted to have low blood pressure for which there were adjustments to the doses of your medications made as below. Your troponin (blood markers), and EKG did not show any signs of heart attack. Improved with nitro which can treat anginal pain, but can also cause relief if your symptoms were coming from a GI source or esophageal spasm. The risk/benefits of remaining inpatient until a chemical stress test versus outpatient stress test were discussed with you. You preferred return home with return precautions and outpatient stress test which is reasonable. An ultrasound of your heart performed while inpatient was normal. You had a normal ejection fraction of 55 to 60%, which is significantly improved compared to your last echo with some borderline apical wall hypokinesis noted. Your Entresto and spironolactone have been dose reduced. Please continue to take Entresto 26//24 mg twice daily. This is a dose reduction from your prior dose which was 51/49 mg. Your spironolactone has been dose reduced. Please take spironolactone 12.5 mg daily in the morning. This is a dose reduction from your prior 25 mg dose. Follow-up dyspnea scheduled for you with your primary care physician and cardiology. An outpatient stress test is being coordinated. Based on your blood pressures your power mule operator may wish to uptitrate your Entresto and spironolactone back to higher doses versus keeping them at current dose depending on your tolerance. Please discuss this at your follow-up appointment. There were reassuring portions to your history including a stable EKG, no exercise association with your pain, and normal biomarkers. You do have a high risk history. If you have any further/recurrent chest pain he should be seen back promptly in the emergency department for reevaluation. If you develop any new or worsening symptoms including fever, chills, sweats, chest pain, chest pressure, difficulty breathing, uncontrolled nausea/vomiting, rash, wheezing, passing out or nearly passing out, bleeding, black/bloody bowel movements, or other new or concerning symptoms please call your primary care physician at, or call 911 for re-evaluation in the emergency department if you are very concerned. Pending Studies at Discharge: No Stand-Alone Forms: My [facility], Smoking Cessation Medications and DC Order Prescriptions: New Entresto 24-26 mg Tablet 1 tab PO BID Qty: 60 0RF Continued Phazyme 250 mg capsule 250 mg PO BID PRN (Reason: abdominal distention) Qty: 30 1RF aspirin 81 mg tablet,delayed release (DR/EC) 81 mg PO QAM Qty: 30 11RF atorvastatin 80 mg tablet 80 mg PO QPM Qty: 30 11RF cholecalciferol (vitamin D3) 62.5 mcg (2,500 unit) capsule 62.5 mcg PO DAILY Qty: 30 11RF cyanocobalamin (vitamin B-12) 1,000 mcg tablet 1,000 mcg PO QAM Qty: 30 11RF duloxetine 60 mg capsule,delayed release(DR/EC) 60 mg PO QAM Qty: 30 11RF ezetimibe [Zetia] 10 mg tablet 10 mg PO HS Qty: 30 11RF multivitamin [Multiple Vitamins] Tablet 1 tab PO QAM Qty: 30 11RF (DME) BD AutoShield Duo Pen Needle 30 gauge x 3/16" needle See Rx Instructions .Route Qty: 200 3RF Rx Instructions: Use two per day with insulin injections Motegrity 2 mg tablet 2 mg PO QAM Qty: 90 3RF Rx Instructions: TAKE 1 TABLET EVERY MORNING buspirone 5 mg tablet 5 mg PO BID PRN (Reason: anxiety) Qty: 60 5RF empagliflozin 25 mg tablet 25 mg PO DAILY Qty: 30 3RF nitroglycerin 0.4 mg tablet, sublingual 0.4 mg sublingual Q5M PRN (Reason: chest pain) Qty: 10 0RF Rx Instructions: do not exceed 3 doses per episode ipratropium bromide 21 mcg (0.03 %) spray,non-aerosol 2 spray intranasal BID PRN (Reason: runny nose) Qty: 30 6RF Rx Instructions: administer into each nostril gabapentin 600 mg tablet 600 mg PO TID Qty: 90 5RF Rx Instructions: TOTAL DOSE 900 MG--TAKES WITH 300 MG CAP. gabapentin 300 mg capsule 300 mg PO TID Qty: 90 5RF Rx Instructions: TOTAL DOSE 900 MG--TAKES WITH 600 MG CAP. Advair HFA 230-21 mcg/actuation HFA aerosol inhaler 2 inh inhalation BID 90 Days Qty: 3 3RF Spiriva Respimat 2.5 mcg/actuation mist 2 puff INH QAM Qty: 3 3RF ondansetron 4 mg tablet,disintegrating 4 mg PO Q8H PRN (Reason: Nausea And Vomiting) Qty: 120 3RF acetaminophen 650 mg tablet extended release 650 mg PO DAILY PRN (Reason: PAIN/FEVER) levalbuterol HCl 0.63 mg/3 mL solution for nebulization 0.63 mg INH TID PRN (Reason: shortness of breath or wheezing) Qty: 360 5RF ipratropium bromide 0.02 % solution 2.5 ml inhalation QID PRN (Reason: shortness of breath or wheezing) Qty: 75 6RF Nurtec ODT 75 mg tablet,disintegrating 75 mg PO DAILY PRN (Reason: migraine headache) Qty: 8 5RF Rx Instructions: 75mg po once a day prn acute migraine famotidine 40 mg tablet 40 mg PO BID PRN (Reason: heartburn) Qty: 60 2RF dexlansoprazole [Dexilant] 60 mg capsule,biphase delayed releas 60 mg PO QAM Qty: 90 3RF valacyclovir 1 gram tablet 2,000 mg PO BID PRN (Reason: cold sores) 1 Days Qty: 4 3RF Rx Instructions: For cold sore furosemide 20 mg tablet 20 mg PO QAM Qty: 90 3RF magnesium oxide 400 mg magnesium capsule 400 mg PO DAILY Qty: 90 3RF metoprolol succinate 50 mg tablet extended release 24 hr 50 mg PO QAM Qty: 90 3RF ticagrelor 90 mg tablet 90 mg PO BID Qty: 180 3RF polyethylene glycol 3350 [Miralax] 17 gram/dose Powder 17 g PO QAM melatonin 3 mg Tablet 6 mg PO HS Humulin R U-500 (Conc) Kwikpen 500 unit/mL (3 mL) insulin pen 70 unit subcut BIDM albuterol sulfate [Ventolin HFA] 90 mcg/actuation HFA aerosol inhaler 2 inh inhalation Q4H PRN (Reason: SOB) Rx Instructions: USE 2 INHALATIONS EVERY 4 HOURS NEEDED FOR SHORTNESS OF BREATH OR WHEEZING Changed spironolactone 25 mg tablet 12.5 mg PO QAM Qty: 90 3RF Discontinued Entresto 49-51 mg tablet 1 tab PO BID Qty: 180 3RF Hold Instructions: Hold until you see Dr Javier in follow-up Admission Data Admit Date/Time: 05/26/25 19:47 Attending Provider: Devon Sheriff Admit Provider: Xavier Flynn V. Primary Care Provider: Millie Wilkes Other Providers: Abdiel Padron Hospital Stay Data Consultations 05/26/25 17:31 ED Decision to Admit Stat Diagnostic Imagining Performed 05/26/25 15:31 CT head/brain wo con Stat Discharge Instructions Given to Patient (Per Discharging Provider) You are seen in the hospital for intermittent chest discomfort which was not ass ociated with exercise. You are able to ambulate with physical therapy with good strength and did not have any chest pain while ambulating. You were noted to have low blood pressure for which there were adjustments to the doses of your medications made as below. Your troponin (blood markers), and EKG did not show any signs of heart attack. Improved with nitro which can treat anginal pain, but can also cause relief if your symptoms were coming from a GI source or esophageal spasm. The risk/benefits of remaining inpatient until a chemical stress test versus outpatient stress test were discussed with you. You preferred return home with return precautions and outpatient stress test which is reasonable. An ultrasound of your heart performed while inpatient was normal. You had a normal ejection fraction of 55 to 60%, which is significantly improved compared to your last echo with some borderline apical wall hypokinesis noted. Your Entresto and spironolactone have been dose reduced. Please continue to take Entresto 26//24 mg twice daily. This is a dose reduction from your prior dose which was 51/49 mg. Your spironolactone has been dose reduced. Please take spironolactone 12.5 mg daily in the morning. This is a dose reduction from your prior 25 mg dose. Follow-up dyspnea scheduled for you with your primary care physician and cardiology. An outpatient stress test is being coordinated. Based on your blood pressures your power mule operator may wish to uptitrate your Entresto and spironolactone back to higher doses versus keeping them at current dose depending on your tolerance. Please discuss this at your follow-up appointment. There were reassuring portions to your history including a stable EKG, no exercise association with your pain, and normal biomarkers. You do have a high risk history. If you have any further/recurrent chest pain he should be seen back promptly in the emergency department for reevaluation. If you develop any new or worsening symptoms including fever, chills, sweats, chest pain, chest pressure, difficulty breathing, uncontrolled nausea/vomiting, rash, wheezing, passing out or nearly passing out, bleeding, black/bloody bowel movements, or other new or concerning symptoms please call your primary care physician at, or call 911 for re-evaluation in the emergency department if you are very concerned. Total Time Total Time Spent Total Time Spent (In Minutes): Time spend day of discharge 35 minutes including direct patient care, doc umentation, review of labs and images, and coordination of care. Coding Level of Care Code 88812 INP/OBS DISCH >30 MIN Diagnoses Chest tightness R07.89 Hx of myocardial infarction I25.2 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 E11.43; E11.65 Dysphagia, unspecified type R13.10 Dysphagia type: unspecified Traumatic injury of head, initial encounter S09.90XA Encounter type: initial encounter Frequent falls R29.6 Hyponatremia E87.1 Coronary artery disease involving [place] coronary artery of [place] heart, unspecified whether angina present I25.10 Associated angina: unspecified whether angina present Coronary Disease-Associated Artery/Lesion type: [place] artery [place] vs. transplanted heart: [place] heart Pacemaker Z95.0 HFrEF (heart failure with reduced ejection fraction) I50.20 Cerebrovascular disease I67.9 Depression with anxiety F41.8
[2025-05-28 07:34] VITALS: BP 114/75; PULSE 68; TEMP 98.2; O2SAT 98
[2025-05-28] MEDS: busPIRone 5 MG TAB PO PRN (08:45)
[2025-05-28] MEDS: SPIRONOLACTONE 12.5 MG TAB PO SCH (08:49)
[2025-05-28] MEDS: VALSARTAN/SACUBITRIL 26/24MG TAB PO SCH (08:50)
[2025-05-28] MEDS ORDERED: VALSARTAN/SACUBITRIL 51/49 MG TAB PO SCH (09:00)
--- NOTE | 2025-05-28 10:36 | XCELERA ---
[id number] \\[id number]
== END 2025-05-28 10:35 | disposition home or self-care (01) ==
LOC: 2N 14:57 → ED 14:57 → SUATTDRO 19:47 → 2N 21:32